=== PATIENT | female | born 2000 | race Caucasian/White ===

== ENCOUNTER 2020-04-07 14:03 | Emergency (ER) | payer OTHER, SELFPAY ==
[2020-04-07 14:16] VITALS: BP 133/88; PULSE 77; RESP 14; TEMP 36.6; O2SAT 100
[2020-04-07 14:36] LABS: Basophils Percent Auto 0.5 % (0.2-1.2); Eosinophils Absolute Auto 0.1 K/mm3 (0-0.3); Eosinophils Percent Auto 1.7 % (0-4.4); Hematocrit 40.1 % (37.0-47.0); Hemoglobin 13.7 g/dL (12.0-15.0); Immature Granulocyte Absolute 0.02 K/mm3 (0.00-0.031); Immature Granulocyte Percent A 0.3 % (0-0.5); Lymphocytes Absolute Auto 2.45 K/mm3 (0.9-3.2); Lymphocytes Percent Auto 37.6 % (18.3-44.2); Mean Corpuscular HGB Conc 34.2 g/dl (32-36); Mean Corpuscular Hemoglobin 31.2 pg (26-34); Mean Corpuscular Volume 91.3 fl (80-100); Mean Platelet Volume 9.4 fl (7.4-10.4); Monocytes Absolute Auto 0.5 K/mm3 (0.1-0.6); Monocytes Percent Auto 7.7 % (2.6-8.5); Neutrophils Absolute Auto 3.4 K/mm3 (1.3-6.7); Neutrophils Percent Auto 52.2 % (45.5-73.1); Platelet Count Result 252 k/mm3 (150-375); Red Blood Count 4.39 M/mm3 (4.2-5.4); Red Cell Distribution Width 12.5 % (11.5-14.5); White Blood Count 6.5 K/mm3 (4.5-10.0)
--- NOTE | 2020-04-07 14:41 | PC.NURSE ---
Pt to room 15. Belongings removed and locked at nurse's desk. Pt c/o feeling depressed and anxious with episodes of crying for no reason. Denies any stressors in her life. Was placed on Prozac 2 years ago for depression but stopped taking it because she felt better.
[2020-04-07 14:57] LABS: Alanine Aminotransferase 11 U/L (4-35); Albumin Level 4.3 g/dL (3.5-5.1); Alkaline Phosphatase 75 U/L (38-126); Anion Gap 4 mmol/L (8-16); Aspartate Amino Transferase 25 U/L (14-36); Bilirubin,Total 0.8 mg/dL (0.2-1.3); Blood Urea Nitrogen 6 mg/dL (7-17); Calcium 8.9 mg/dL (8.4-10.2); Carbon Dioxide 26 mmol/L (22-30); Chloride 105 mmol/L (98-107); Estimated CRCL calculation 95 ml/min; Estimated Glomerular Filt Rate > 60; Glucose 84 mg/dL (65-105); Potassium 4.2 mmol/L (3.4-5.0); Sodium 135 mmol/L (137-145)
[2020-04-07 14:58] LABS: Ethanol < 10 mg/dL (<10)
[2020-04-07 15:24] LABS: Add Urine Microscopic? YES; Appearance Urine Cloudy (Clear); Bacteria Urine 2+ /hpf; Bilirubin Urine Negative (Negative); Blood Urine Negative (Negative); Color Urine Yellow (Yellow); Glucose Urine UA Negative (Negative); Ketones Urine Negative (Negative); Leukocyte Esterase Ur Negative LEU/UL (Negative); Mucus Urine Rare /lpf; Nitrate Urine Negative (Negative); Protein Urine Negative (Negative); RBC Urine 0-2 /hpf (0-2); Specific Grav Ur 1.015 (1.001-1.035); Squamous Epithelial Cell Urine Rare /hpf (Few); Urobilinogen Urine Negative mg/dL (<2.0); WBC Urine 0-3 /hpf
--- NOTE | 2020-04-07 15:27 | ED.PSYCH ---
HPI - Psych General Chief Complaint: Psychiatric Symptoms Stated Complaint: depression, anxiety Time Seen by Provider: 04/07/20 15:25 Source: patient Mode of arrival: ambulatory Limitations: no limitations History of Present Illness HPI Narrative: Patient is a 20-year-old female complaining of depression and anxiety for the past month. Patient also states that she has been having suicidal thoughts but denies any plan. Patient denies any homicidal ideation. Patient denies auditory or visual hallucinations. Patient states that she really does not have any plan on hurting herself but just wants help right now for her depression and anxiety. Patient states that she has been unable to see anyone for her anxiety and depression and currently not on any medications. Related Data Home Medications Medication Instructions Recorded Confirmed No Home Medications 04/07/20 04/07/20 Allergies Allergy/AdvReac Type Severity Reaction Status Date / Time Sulfa (Sulfonamide Allergy Unknown Hives / Verified 04/07/20 14:40 Antibiotics) Red Face Review of Systems Review of Systems: All systems reviewed & are unremarkable except as noted in HPI and below Constitutional: Constitutional: Denies body ache(s), Denies chills, Denies excessive sweating, Denies fatigue, Denies fever(s), Denies headache(s), Denies lethargy, Denies malaise, Denies weakness and Denies weight loss Eyes: Eyes: Denies blurry vision, Denies change in vision and Denies loss of vision ENT: Denies dizziness, Denies ear discharge, Denies headache(s), Denies lip swelling, Denies epistaxis, Denies nasal congestion, Denies neck pain, Denies throat swelling and Denies tongue swelling Cardiovascular: Cardiovascular: Denies chest pain, Denies chest pain at rest, Denies chest pain with activity, Denies diaphoresis, Denies rapid heart rate, Denies edema, Denies irregular heart rhythm, Denies lightheadedness, Denies palpitations, Denies dyspnea and Denies dyspnea on exertion Respiratory: Respiratory: Denies chest congestion, Denies cough, Denies hemoptysis, Denies dyspnea and Denies dyspnea on exertion Gastrointestinal: Gastrointestinal: Denies abdominal pain, Denies melena, Denies hematochezia, Denies diarrhea, Denies nausea, Denies vomiting and Denies hematemesis Musculoskeletal: Musculoskeletal: Denies abnormal gait, Denies deformity, Denies joint swelling, Denies limited range of motion, Denies neck pain and Denies numbness Neurologic: Denies Abnormal speech present, Denies abnormal gait, Denies confusion, Denies dizziness, Denies headache(s), Denies focal weakness, Denies loss of vision, Denies numbness, Denies Other visual disturbances, Denies Sensory deficit (Neuro) and Denies weakness Psychiatric: Psychiatric: Denies confusion, Denies auditory hallucinations and Denies homicidal ideation Endocrine: Endocrine: Denies cold intolerance, Denies excessive sweating, Denies fatigue, Denies heat intolerance and Denies palpitations Hematologic/Lymphatic: Hematologic/Lymphatic: Denies easy bleeding and Denies easy bruising Allergic/Immunologic: Allergic/Immunologic: Denies lip swelling, Denies throat swelling and Denies tongue swelling Exam Const: General: cooperative, healthy appearing, comfortable, no acute distress, well developed, alert and awake; No confusion Orientation/consciousness: oriented to person, oriented to place, oriented to time, patient oriented x3 and No confusion Limitations: no limitations HENMT: Head: normal to inspection, normocephalic and atraumatic Ears: hearing grossly normal bilaterally, TM normal on the right and TM normal on the left General nose exam: Normal external nose present, Normal nares present and No nasal discharge present Face and sinus: normal facial exam Mouth: Yes Normal oral and palatal mucosa present, Yes lip normal, Yes tongue normal and Yes oropharynx normal Throat: posterior oropharynx normal, tonsils normal and uvula midline Eyes: Ge
[2020-04-07 15:28] LABS: Amphetamine Screen Urine Negative (Negative); Barbiturate Screen Urine Negative (Negative); Benzodiazepines Screen Urine Negative (Negative); Cannabinoid Screen Urine Positive (Negative); Cocaine Screen Urine Negative (Negative); Methadone Screen Urine Negative (Negative); Opiate Screen Urine Negative (Negative); Phencyclidine Screen Urine Negative (Negative)
--- NOTE | 2020-04-07 17:23 | PC.NURSE ---
Crisis here to evaluate.
[2020-04-07 19:45] VITALS: BP 122/66; PULSE 88; RESP 16; TEMP 36.7; O2SAT 100
== END 2020-04-07 19:45 | disposition home or self-care (01) ==
PROVIDERS: Emergency Medicine; Emergency Provider Emergency Medicine; PCP Internal Medicine
DX: F32.9 Major depressive disorder, single episode, unspecified (principal); F41.9 Anxiety disorder, unspecified
CPT/HCPCS: 36415; 80053; 80307; 81001; 81025; 84443; 85025; 99284

== ENCOUNTER 2022-01-16 12:41 | Emergency (ER) | payer OTHER, SELFPAY ==
--- NOTE | ~2022-01-16 | XR_ITS ---
EXAMINATION: XR hand LT min 3V INDICATION: Left hand pain TECHNIQUE: Three views of the left hand are obtained. COMPARISON: None available FINDINGS: No acute fracture is identified. Bone alignment is normal. 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 The soft tissues are unremarkable. IMPRESSION: 1. No acute osseous abnormality. Reviewed, dictated and finalized at location A.
--- NOTE | ~2022-01-16 | XR_ITS ---
EXAMINATION: XR hand RT min 3V INDICATION: Right hand pain TECHNIQUE: Three views of the right hand are obtained COMPARISON: None available FINDINGS: There is no fracture, dislocation, or subluxation. The bones, soft tissues, and joint space s are normal. IMPRESSION: 1. No acute osseous abnormality. Reviewed, dictated and finalized at location A.
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
[2022-01-16 12:43] VITALS: BP 146/96; PULSE 120; RESP 18; TEMP 36.7; O2SAT 100
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
[2022-01-16] MEDS: KETOROLAC 30 MG/ML VIAL (*BKC) IM (13:06)
[2022-01-16] MEDS: LORazepam INJ (*CRX) 2 MG/ML VIAL IM (13:07)
--- NOTE | 2022-01-16 13:40 | PC.NURSE ---
pt has been agitated, unruly and threatening to staff. refuses direction from staff. pt was given Ativan IM
[2022-01-16 14:30] VITALS: BP 136/70; PULSE 102; RESP 20; O2SAT 98
--- NOTE | 2022-01-16 15:00 | PC.NURSE ---
pt asleep, equal chest rise and fall noted provider stated to let pt sleep, and then can leave when she awakens.
--- NOTE | 2022-01-16 16:30 | PC.NURSE ---
pt remains at rest, chest rise noted, pt has changed positions in the bed
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
--- NOTE | 2022-01-16 20:20 | PC.NURSE ---
Pt yelling on phone at this time.
[2022-01-16] MEDS: ACETAMINOPHEN 500 MG TABLET 1000 MG PO (20:29)
== END 2022-01-16 20:30 | disposition home or self-care (01) ==
PROVIDERS: Emergency Provider Emergency Medicine; PCP Internal Medicine
DX: S09.93XA Unspecified injury of face, initial encounter (principal); S69.92XA Unspecified injury of left wrist, hand and finger(s), initial encounter; S69.91XA Unspecified injury of right wrist, hand and finger(s), initial encounter; M47.812 Spondylosis without myelopathy or radiculopathy, cervical region; Y04.0XXA Assault by unarmed brawl or fight, initial encounter
CPT/HCPCS: 70450; 70486; 72125; 73130; 96372; 99284; A9270; J1885; J2060

== ENCOUNTER 2024-03-18 13:03 | Emergency (ER) | payer OTHER, SELFPAY ==
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
[2024-03-18 13:10] VITALS: BP 131/80; PULSE 88; RESP 17; TEMP 36.6; O2SAT 99
--- NOTE | 2024-03-18 13:26 | ECG_ITS ---
Test Date: 2024-03-18 14:03:56 Measurements Intervals [place] Rate: 85 P: 27 ND: 153 QRS: 50 QRSD: 89 T: 11 QT: 359 QTc: 427 Interpretive Statements SINUS RHYTHM POSSIBLE RIGHT VENTRICULAR CONDUCTION DELAY [RSR (QR) IN V1/V2] NONSPECIFIC T-WAVE ABNORMALITY No previous ECG available for comparison Electronically Signed On 03-18-2024 14:23:46 [employer] by Shashank Trinh M.D.
[2024-03-18] MEDS: MORPHINE SULFATE (*CRX) 4 MG/ML INJ IV PUSH (13:55)
[2024-03-18] MEDS: LACTATED RINGERS 1,000 ML 999 ML IV CONT (13:55)
[2024-03-18 13:59] LABS: BEDSIDEPREGUCG Negative (Negative)
[2024-03-18 14:11] LABS: Basophils Absolute Auto 0.1 K/mm3 (0.0-0.1); Basophils Percent Auto 0.5 % (0.2-1.2); Eosinophils Absolute Auto 0.4 K/mm3 (0-0.3); Eosinophils Percent Auto 3.7 % (0-4.4); Hematocrit 39.6 % (37.0-47.0); Hemoglobin 13.2 g/dL (12.0-15.0); Immature Granulocyte Absolute 0.04 K/mm3 (0.00-0.031); Immature Granulocyte Percent A 0.4 % (0-0.5); Lymphocytes Absolute Auto 2.77 K/mm3 (0.9-3.2); Lymphocytes Percent Auto 28.8 % (18.3-44.2); Mean Corpuscular HGB Conc 33.3 g/dl (32-36); Mean Corpuscular Hemoglobin 30.3 pg (26-34); Mean Corpuscular Volume 90.8 fl (80-100); Mean Platelet Volume 8.9 fl (7.4-10.4); Monocytes Absolute Auto 0.7 K/mm3 (0.1-0.6); Monocytes Percent Auto 7.3 % (2.6-8.5); Neutrophils Absolute Auto 5.7 K/mm3 (1.3-6.7); Neutrophils Percent Auto 59.3 % (45.5-73.1); Platelet Count Result 377 k/mm3 (150-375); Red Blood Count 4.36 M/mm3 (4.2-5.4); Red Cell Distribution Width 12.8 % (11.5-14.5); White Blood Count 9.6 K/mm3 (4.5-10.0)
[2024-03-18 14:17] LABS: Add Urine Microscopic? YES; Appearance Urine Turbid (Clear); Bacteria Urine 3+ /hpf; Bilirubin Urine Negative (Negative); Blood Urine Negative (Negative); Color Urine Yellow (Yellow); Glucose Urine UA Negative (Negative); Ketones Urine Negative (Negative); Leukocyte Esterase Ur 1+ LEU/UL (Negative); Nitrate Urine Negative (Negative); Non Pathogenic Casts 0-2; Protein Urine Negative (Negative); RBC Urine 0-2 /hpf (0-2); Specific Grav Ur 1.017 (1.001-1.035); Squamous Epithelial Cell Urine Moderate /hpf (Few); pH Urine 7.5 (5.0-9.0)
[2024-03-18 14:21] LABS: INR 0.9; Prothrombin Time 12.8 Seconds (11.1-14.7)
[2024-03-18 14:22] LABS: Alanine Aminotransferase 13 U/L (6-35); Albumin Level 4.2 g/dL (3.5-5.1); Alkaline Phosphatase 109 U/L (38-126); Anion Gap 3 mmol/L (4-12); Aspartate Amino Transferase 22 U/L (14-36); Bilirubin,Total 0.5 mg/dL (0.2-1.3); Blood Urea Nitrogen 10 mg/dL (7-17); Carbon Dioxide 27 mmol/L (22-30); Chloride 107 mmol/L (98-107); Estimated CRCL calculation 111 ml/min; Estimated Glomerular Filt Rate > 60; Glucose 96 mg/dL (65-110); Potassium 3.9 mmol/L (3.4-5.0); Sodium 137 mmol/L (137-145)
[2024-03-18 14:23] LABS: Partial Thromboplastin Time 25.4 Seconds (22.3-36.8)
[2024-03-18 14:32] LABS: Troponin I < 0.012 ng/mL (0.000-0.034)
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
[2024-03-18] MEDS: ONDANSETRON INJ 4 MG/2 ML VIAL IV PUSH (15:40)
[2024-03-18] MEDS: HYDROmorphone HCL INJ (*CRX) 1 MG/ML SYR IV PUSH (15:41)
[2024-03-18 15:43] VITALS: BP 129/86; PULSE 88; RESP 16; O2SAT 98
--- OUTSIDE RECORDS SUMMARY | 2024-03-25 18:35 | XMS_ITS | Referral Summary ---
Author Organization [facility] Address [address] [place] [address] Care Team Providers Care Tube Cleaner Name Role Phone Unavailable Primary Care Provider Unavailabl e Source Comments [facility],non-owned Affiliates and Associated Physician Practices is amultiple site organization consisting of ambulatory clinics and hospital sitesin [place], [place], [place] and [place]. This disclosure is being madepursuant to the Care Everywhere program and may not contain all information available regarding this patient. Last updated 17.[facility] [employer] Allergies Active Allergy Reactions Criticality Noted Date Comments Sulfamethoxazole W-Trimethoprim Itching 12/27 Active Problems Problem Noted Date Diagnosed Date Manic episode 01/22/2022 Social History Tobacco Use Types Packs/Day Years Used Date Smoking Tobacco: Never Assessed Sex and Gender Information Value Date Recorded Sex Assigned at Not on file Gender Identity Not on file Sexual Orientation Not on file Last Filed Vital Signs Vital Sign Reading Time Taken Comments Blood Pressure 115/59 01/25/2022 2:26 PM CDT Pulse 90 01/25/2022 2:26 PM CDT Temperature 36.8 ??C (98.2 ??F) 01/25/2022 2:26 PM CD T Respiratory Rate 16 01/25/2022 2:26 PM CDT Oxygen Saturation 100% 01/25/2022 2:26 PM CDT Inhaled Oxygen Concentration - - Weight 49.9 kg (110 lb) 01/22/2022 5:37 PM CDT Height 162.6 cm (5' 4 ) 01/22/2022 5:37 PM CDT Body Mass Index 18.88 01/22/2022 5:37 PM CDT Plan of Treatment Not on file Advance Directives * Full Code (Latest Code Status on File) Date Activated Date Inactivated Comments 01/24/2022 7:28 AM 01/25/2022 4:05 PM
--- OUTSIDE RECORDS SUMMARY | 2024-03-25 18:35 | XMS_ITS | Clinical Summary ---
Author Organization [facility] Address [address] [place] [address] Care Team Providers Care Train Gateman Name Role Phone Unavailable Primary Care Provider Unavailabl e Source Comments [facility],non-owned Affiliates and Associated Physician Practices is amultiple site organization consisting of ambulatory clinics and hospital sitesin [place], [place], [place] and [place]. This disclosure is being madepursuant to the Care Everywhere program and may not contain all information available regarding this patient. Last updated 17.[facility] [employer] Allergies Active Allergy Reactions Criticality Noted Date [...] 01/22/2022 5:37 PM CDT Plan of Treatment Health Maintenance Due Date Last Done Comments PAP SMEAR 2000 HIV SCREENING 2015 HPV VACCINE (1 - 3-dose series) 2015 CHLAMYDIA/GONORRHEA SCREENING 2016 HEPATITIS C SCREENING 03/31/2018 DTAP/TDAP/TD VACCINES (1 - Tdap) 2019 HEPATITIS B VACCINE (1 of 3 - 19+ 3-dose series) 2019 DEPRESSION SCREENING 03/28/2023 COVID-19 VACCINE (1 - 2023-2 5 season) 2023 INFLUENZA VACCINE (#1) 2023 8, 02/05/2018 ZOSTER VACCINE (1 of 2) 2050 HIB VACCINE Aged Out No longer eligi ble based on patient's age to complete this topic MENINGOCOCCAL VACCINE Aged Out No eliza mallory eligible based on patient's age to complete this topic PNEUMOCOCCAL VACCINE Aged Out No long er eligible based on patient's age to complete this topic Advance Directives * Full Code (Latest Code Status on File) Date Activated Date Inactivated Comments 01/24/2022 7:28 AM 01/25/2022 4:05 PM
--- OUTSIDE RECORDS SUMMARY | 2024-03-25 18:35 | XMS_ITS | Patient Health Summary ---
Author Organization [facility] [employer] Address [address] [place] [address] Care Team Providers Care Ore Crushing Dust Collector Name Role Phone Unavailable Primary Care Provider Unavailabl e Note from [facility],non-owned Affiliates and Associated Physician Practices is amultiple site organization consisting of ambulatory clinics and hospital sitesin [place], [place], [place] and [place]. This disclosure is being madepursuant to the Care Everywhere program and may not contain all information available regarding this patient. Last updated 17.[facility] [employer] Allergies * Sulfamethoxazole W-Trimethoprim(Itching) Active Problems Problem Noted Date Diagnosed Date [...] Mass Index 18.88 01/22/2022 5:37 PM CDT Procedures * CARDIAC EKG ORDER(Performed 01/26/2022) * EKG 12-LEAD(Performed 01/24/2022) Performed for Manic episode (HCC) * SYPHILIS ANTIBODY CASCADING REFLEX(Performed 01/22/2022) * HCG BETA BLOOD QUANTITATIVE(Performed 01/22/2022) * MAGNESIUM BLOOD(Performed 01/22/2022) * COMPREHENSIVE METABOLIC PANEL(Performed 01/22/2022) * CBC W AUTO DIFFERENTIAL(Performed 01/22/2022) * ALCOHOL ETHYL BLOOD(Performed 01/22/2022) * URINE DRUG SCREEN IMMUNOASSAY(Performed 01/22/2022) Results * CARDIAC EKG ORDER (01/26/2022 12:20 PM CDT) Narrative 01/26/2022 12:20 PM CDT Ordered by an unspecified provider. Scanned Document CARDIAC SERVICES ORD ERABLES * EKG 12-LEAD (01/24/2022 7:56 AM CDT) Pathologist [facility] Ventricular Rate 79 BPM [facility] MUSE Atrial Rate 79 BPM [facility] MUSE P-R Interval 112 ms [facility] MUSE QRS Duration ms 74 ms [facility] MUSE Q-T Interval ms 338 ms [facility] MUSE QTC Calculation (Bezet) 387 ms [facility] MUSE Calculated P [place] 44 degrees [facility] Calculated R [place] 83 degrees [facility] Calculated T [place] 51 degrees [facility] Interpretation EKG NORMAL SINUS RHYTHM NORMAL ECG NO PREVIOUS ECGS AVAILABLE Confirmed by DRAIUSZ QUINONES, [facility] ([id number]) on 01/27/2022 8:42:05 AM [facility] MUSE 01/24/2022 7:56 AM CDT 01/27/2022 8:42 AM CDT Woody Moore MD ECG ORDERABLES [facility] MUSE * SYPHILIS ANTIBODY CASCADING REFLEX (01/22/2022 5:50 PM CDT) Pathologist [facility] Treponema pallidum Antibody Non-react bernabe Non-react bernabe 01/22/2022 6:43 PM CDT [facility] Comment: No Laboratory evidence of syphilis infection. ?? Note: ??Circulating antibodies may be low or undetectable in early infection. ??If recent exposure is suspected, re-draw sample in 2-4 weeks and repeat testing. Blood BLOOD SPECIMEN / Unknown Venipuncture / Unknown 01/22/2022 5:50 PM CDT 01/22/2022 5:56 PM CDT Lena Martinez MD LAB - SEROLOGY ORDER LINH [facility] [address] [place] [address], [facility] [phone] * (ABNORMAL) CBC W AUTO DIFFERENTIAL (01/22/2022 5:50 PM CDT) WBC 9.7 3.5 - 10.5 10? 3 /uL 01/22/2022 6:01 PM [facility] RBC 4.02 3.80 - 5.20 10? 6 /uL 01/22/2022 6:01 PM [facility] Hemoglobin 13.1 12.0 - 15.6 g/dL 01/22/2022 6:01 PM [facility] Hematocrit 37.6 35.0 - 45.0 % 01/22/2022 6:01 PM [facility] MCV 93.5 80.7 - 98.3 fL 01/22/2022 6:01 PM [facility] MCH 32.6 26.7 - 34.0 pg 01/22/2022 6:01 PM [facility] MCHC 34.8 30.8 - 35.9 g/dL 01/22/2022 6:01 PM [facility] RDW-SD 42.7 36.0 - 50.0 fL 01/22/2022 6:01 PM [facility] RDW-CV 12.3 11.2 - 14.8 % 01/22/2022 6:01 PM [facility] Platelet Count 265 150 - 400 10? 3 /uL 01/22/2022 6:01 PM [facility] MPV 8.9(L) 9.4 - 12.9 fL 01/22/2022 6:01 PM [facility] nRBC Absolute 0.00 0 10? 3 /uL 01/22/2022 6:01 PM [facility] nRBC Auto 0.0 0 /100 WBC 01/22/2022 6:01 PM [facility] Neutrophils % 65.0 35.0 - 70.0 % 01/22/2022 6:01 PM [facility] Lymphocytes % 24.2 20.0 - 43.0 % 01/22/2022 6:01 PM [facility] Monocytes % 9.4 5.0 - 13.0 % 01/22/2022 6:01 PM [facility] Eosinophils % 0.7 0.0 - 6.0 % 01/22/2022 6:01 PM [facility] Basophil % 0.3 0.0 - 2.0 % 01/22/2022 6:01 PM [facility] Neutrophils Absolute 6.32 1.60 - 7.00 10? 3 /uL 01/22/2022 6:01 PM [facility] Lymphocyte Absolute 2.35 1.10 - 3.90 10? 3 /uL 01/22/2022 6:01 PM [facility] Monocytes Absolute 0.91 0.26 - 1.07 10? 3 /uL 01/22/2022 6:01 PM [facility] Eosinophils Absolute 0.07 0.00 - 0.47 10? 3 /uL 01/22/2022 6:01 PM [facility] Basophils Absolute 0.03 0.00 - 0.08 10? 3 /uL 01/22/2022 6:01 PM [facility] Immature Granulocytes % 0.4 0.0 - 1.0 % 01/22/2022 6:01 PM [facility] Immature Granulocytes Absolute 0.04 01/22/2022 6:01 PM [facility] Blood BLOOD SPECIMEN / Unknown Venipuncture / Unknown 01/22/2022 5:50 PM CDT 01/22/2022 5:57 PM T Lena Martinez MD LAB - HEMATOLOGY ORD ERABLES [facility] [address] [place] [address] [phone] * (ABNORMAL) COMPREHENSIVE METABOLIC PANEL (01/22/2022 5:50 PM [facility]) BUN 9 7 - 26 mg/dL 01/22/2022 6:32 PM [facility] Creatinine 0.63 0.56 - 0.96 mg/dL 01/22/2022 6:32 PM [facility] Sodium 139 136 - 145 mmol/L 01/22/2022 6:32 PM [facility] Potassium 3.3(L) 3.5 - 4.5 mmol/L 01/22/2022 6:32 PM [facility] Chloride 105 98 - 107 mmol/L 01/22/2022 6:32 PM [facility] CO2 20(L) 22 - 29 mmol/L 01/22/2022 6:32 PM [facility] Glucose 62(L) 70 - 115 mg/dL 01/22/2022 6:32 PM [facility] Calcium 8.8 8.4 - 10.2 mg/dL 01/22/2022 6:32 PM [facility] Protein Total 6.7 6.0 - 8.3 g/dL 01/22/2022 6:32 PM [facility] Albumin 4.0 3.4 - 5.0 g/dL 01/22/2022 6:32 PM [facility] Bilirubin Total 0.6 0.2 - 1.2 mg/dL 01/22/2022 6:32 PM [facility] Alkaline Phosphatase 81 40 - 150 U/L 01/22/2022 6:32 PM [facility] ALT 9 5 - 55 U/L 01/22/2022 6:32 PM [facility] AST 15 5 - 34 U/L 01/22/2022 6:32 PM [facility] Anion Gap 17 8 - 18 01/22/2022 6:32 PM [facility] BUN/Creatinine Ratio 14 7 - 23 01/22/2022 6:32 PM [facility] Osmolality Calculated 285 270 - 300 mOsm/kg 01/22/2022 6:32 PM CDT [facility] Albumin/Globulin Ratio 1.5 1.1 - 2.3 01/22/2022 6:32 PM CDT [facility] eGFR by CKD-EPI >90 >=90 mL/min/1.7 3 m2 01/22/2022 6:32 PM CDT [facility] Blood BLOOD SPECIMEN / Unknown Venipuncture / Unknown 01/22/2022 5:50 PM CDT 01/22/2022 5:57 PM CDT Lena Martinez MD LAB - CHEMISTRY THERESA COMBS [facility] [address] [place] [address], [facility] [phone] * HCG BETA BLOOD QUANTITATIVE (01/22/2022 5:50 PM CDT) Beta-hCG Total Quantitative <3 mIU/mL 01/22/2022 6:43 PM CDT [facility] Comment: This assay is cleared for use in the early detection of only. It is not approved for any other uses such as tumor marker screening, tumor marker monitoring, etc. and should not be used for any other purposes. HCG Numeric Result Interpretation: ? Non- Females: ? < 5 mIU/mL ? Post-Menopausal Females: ??< 7 mIU/mL ? Blood BLOOD SPECIMEN / Unknown Venipuncture / Unknown 01/22/2022 5:50 PM CDT 01/22/2022 5:57 PM CDT Lena Martinez MD LAB - CHEMISTRY THERESA COMBS [facility] [address] [place] [address], [place] [phone] * MAGNESIUM BLOOD (01/22/2022 5:50 PM CDT) Pathologist [facility] Magnesium 1.8 1.6 - 2.6 mg/dL 01/22/2022 6:32 PM CDT [facility] Blood BLOOD SPECIMEN / Unknown Venipuncture / Unknown 01/22/2022 5:50 PM CDT 01/22/2022 5:57 PM CDT Lena Martinez MD LAB - CHEMISTRY THERESA COMBS Performing Organization Address [facility]/ZIP Co de Phone Number [facility] [address] [place] [address], [facility] [phone] * (ABNORMAL) ALCOHOL ETHYL BLOOD (01/22/2022 5:50 PM CDT) Ethanol (mg/dL) 15(H) <10 mg/dL 6:32 PM CDT [facility] Ethanol Calculated (g/dL) 0.015(H) <=0.010 g/dL 01/22/2022 6:32 PM CDT [facility] Blood BLOOD SPECIMEN / Unknown Venipuncture / Unknown 01/22/2022 5:50 PM CDT 01/22/2022 5:57 PM CDT Narrative [facility] - 01/22/2022 6:32 PM CDT Ethanol Interp <10: None Detected. Depression of MATH SPECIALIST: >100 mg/dl Potentially Critical: >250 mg/dl Potentially Fatal >400 mg/dl Ethanol in the patient's blood will contribute to the osmolar gap. Ethanol's contribution to the osmolar gap can be estimated by dividing the concentration of ethanol in mg/dL by 4.6. This test is for clinical use only and does not equal a ARMANDO for legal purposes. Lena Martinez MD LAB - CHEMISTRY THERESA COMBS [facility] [address] [place] [address], [place] [phone] * (ABNORMAL) URINE DRUG SCREEN IMMUNOASSAY (01/22/2022 5:47 PM CDT) Amphetamines Screen Urine Positive(A) Negative : < 1000 ng/mL 01/22/2022 6:12 PM CDT [facility] Comment: Positive urine amphetamine screening results should be confirmed by another generally accepted non-immunological method such as gas chromatography or mass spectrometry. ? Barbiturates Screen Urine Negative Negative : < 200 ng/mL 01/22/2022 6:12 PM [facility] Benzodiazepine Screen Urine Negative Negative : < 200 ng/mL 01/22/2022 6:12 PM [facility] Opiates Urine Negative Negative : < 300 ng/mL 01/22/2022 6:12 PM [facility] Cocaine Metabolites Urine Negative Negative : < 300 ng/mL 01/22/2022 6:12 PM [facility] Phencyclidine Screen Urine Negative Negative : < 25 ng/ml 01/22/2022 6:12 PM [facility] Cannabinoids Screen Urine Positive(A) Negative : <50 ng/mL 01/22/2022 6:12 PM [facility] Comment:Positive urine canna binoids (THC) screening results should be confirmed by another generally accepted non-immunological method such as gas chromatography or mass spectrometry. Methadone Screen Urine Negative Negative : < 300 ng/mL 01/22/2022 6:12 PM [facility] Fentanyl Screen Urine Negative Negative : <1.5 ng/mL 01/22/2022 6:12 PM [facility] Urine URINE / Unknown Collection / Unknown 01/22/2022 5:47 PM CDT 01/22/2022 5:48 PM CDT [facility] - 01/22/2022 6:12 PM CDT The Urine Toxicology Screening Panel does not screen for Propoxyphene, Meprobamate, Carisoprodol, Trazodone, [id number] medications and/or volatiles (Acetone, Isopropanol, Methanol or Ethylene Glycol). Ethanol, Salicylate, Acetaminophen, Tricyclic Antidepressants and several therapeutic drugs may be individually assayed in serum or plasma specimen. Toxicology testing by the [facility] is an aid to medical diagnosis and treatment of patients. No documented chain of custody was maintained. Results are intended to be used for clinical purposes only. ? Lena Martinez MD LAB - URINE CHEMISTR Y ORDERABLES Performing Organization Address [facility] Co de Phone Number [facility] [address] [place] [address], [place] [phone]
--- OUTSIDE RECORDS SUMMARY | 2024-03-25 18:35 | XMS_ITS | Data Portability ---
Author Organization [facility] [place] Address [address] [place] [place] [address] Care Team Providers Care Analyst Business Analysis Name Role Phone ANTONIO NICHOLSON Primary Care Provider [phone] Assessment Encounter Date Assessment Date Assessment LastModified by Organization Details LastModified Time 12/09/2022 12/09/2022 Annual gynecological exam performed. Patient will come back in a year unless there are new symptoms. [email or web address] Not available 12/09/2022 10:45:48 Plan of Treatment Reminders Order Date Submit Date Provider Last Modified By Organization Details Last Modified Time Details Appointments None recorded . Lab pregnanc y test, urine 2022 023 [email or web address] [place], [address], [address], [place], [address], 12:58:37 Referral None recorded . Procedures None recorded . Surgeries None recorded . Imaging None recorded . Medication Orders Mirena 21 mcg/24 hr (up to 8 years) 52 mg intraute rine device 2022 023 [email or web address] Not available 13:31:44 Patient TargetsNo targets recorded. Patient InstructionsNo instructions recorded. Reason for Referral None Reported. Results Created Date Observation Date Name Description Value Unit Range Abnormal Flag Note LastModifiedBy Organization Detail LastModifiedTime 06/05/19 23 06/04/2022 CT/GC AND TRICH OMONA S VAGIN LARRY (RRNA ), URINE chlamydia trachomatis, PCR Negati ve negati ve Not Available [facility] (Lab) [address], [place], [address], 06/05/2022 13:31:54 06/05/19 23 06/04/2022 CT/GC AND TRICH OMONA S VAGIN LARRY (RRNA ), URINE neisseria gonorrhoeae, PCR Negati ve negati ve Not Available [facility] (Lab) [address] [facility], [place], [address], 06/05/2022 13:31:54 06/05/19 23 06/04/2022 CT/GC AND TRICH OMONA S VAGIN LARRY (RRNA ), URINE trichomonas vaginalis ribosomal RNA (rrna) Negati ve negati ve Not Available [facility] (Lab) [address] [facility], [place], [address], 06/05/2022 13:31:54 06/05/19 23 06/04/2022 pregn cheryl test, urine HCG negati ve Not Available [place] [address], [place], [address], 06/04/2022 12:58:21 12/10/19 23 12/09/2022 CT/GC AND TRICH OMONA S VAGIN LARRY (RRNA ), SWAB chlamydia trachomatis, PCR NEGATI VE negati ve Not Available [facility] (Lab) [address] [facility], [place], [address], 12/10/2022 16:49:08 12/10/19 23 12/09/2022 CT/GC AND TRICH OMONA S VAGIN LARRY (RRNA ), SWAB neisseria gonorrhoeae, PCR NEGATI VE negati ve Not Available [facility] (Lab) [address] [facility], [place], [address], 12/10/2022 16:49:08 12/10/19 23 12/09/2022 CT/GC AND TRICH OMONA S VAGIN LARRY (RRNA ), SWAB trichomonas vaginalis ribosomal RNA (rrna) NEGATI VE negati ve Not Available [facility] (Lab) [address] [facility], [place], [address], 12/10/2022 16:49:08 04/26/19 24 04/26/2023 CT/GC AND TRICH OMONA S VAGIN LARRY (RRNA ), URINE chlamydia trachomatis, PCR Negati ve negati ve Not Available [facility] (Lab) [address] [facility], [place], [address], 04/27/2023 14:52:02 04/26/19 24 04/26/2023 CT/GC AND TRICH OMONA S VAGIN LARRY (RRNA ), URINE neisseria gonorrhoeae, PCR Negati ve negati ve Not Available [facility] (Lab) [address] [facility], [place], [address], 04/27/2023 14:52:02 04/26/19 24 04/26/2023 CT/GC AND TRICH OMONA S VAGIN LARRY (RRNA ), URINE trichomonas vaginalis ribosomal RNA (rrna) Negati ve negati ve Not Available [facility] (Lab) [address] [facility], [place], [address], 04/27/2023 14:52:02 06/02/19 24 06/02/2023 VAGIN ITIS/ VAGIN OSIS, DNA PROBE adair sp. detection, direct probe Negati ve negati ve Not Available [facility] (Lab) [address] [facility], [place], [address], 06/03/2023 13:38:16 06/02/19 24 06/02/2023 VAGIN ITIS/ VAGIN OSIS, DNA PROBE gardnerella vag. detection, direct probe Negati ve negati ve Not Available [facility] (Lab) [address] [facility], [place], [address], 06/03/2023 13:38:16 06/02/19 24 06/02/2023 VAGIN ITIS/ VAGIN OSIS, DNA PROBE trichomonas vag. detection, direct probe Negati ve negati ve Not Available [facility] (Lab) [address] [facility], [place], [address], 06/03/2023 13:38:16 06/02/19 24 06/02/2023 CT/GC AND TRICH OMONA S VAGIN LARRY (RRNA ), URINE chlamydia trachomatis, PCR Negati ve negati ve Not Available [facility] (Lab) [address] [facility], [place], [address], 06/03/2023 13:38:17 06/02/19 24 06/02/2023 CT/GC AND TRICH OMONA S VAGIN LARRY (RRNA ), URINE neisseria gonorrhoeae, PCR Negati ve negati ve Not Available [facility] (Lab) [address] [facility], [place], [address], 06/03/2023 13:38:17 06/02/19 24 06/02/2023 CT/GC AND TRICH OMONA S VAGIN LARRY (RRNA ), URINE trichomonas vaginalis ribosomal RNA (rrna) Negati ve negati ve Not Available [facility] (Lab) [address] [facility], [place], [address], 06/03/2023 13:38:17 Result Notes None recorded. Procedures Surgical History Date Name Laterality Status Provider Name and Address Organization Details Recorded Time 3 [facility] [address], [place], [address], [facility] 06/04/2022 12:57:37 2 IUD Removal completed [facility] [address], [place], [address], [facility] 12/16/2021 13:08:04 2 Date of Last Pap Smear completed Yvonne Morales [facility] 12/16/2021 12:55:53 Imaging Results None recorded. Procedure Notes None recorded. Medical Equipment None Reported. Allergies Allergen ID Allergen Name Allergen Category Reaction Reaction Severity Criticality Documentation Date Start Date Code Code System Note Provider Name and Address Organization Details Recorded Time 96888 Bactrim medicatio n Not available Not available Not available 11/25/2021 50391 9 RxNorm Yvonne Morales [facility] 2 10:22:08 Medications Name Sig Start Date Stop Date Status Note LastModified by Organization Details LastModified Time Mirena 21 mcg/24 hr (up to 8 years) 52 mg intrauterin e device Take 1 device by intrauter ine route. 2022 active Not Available Not Available Not Avai lable venlafaxine ER 37.5 mg capsule,ext ended release 24 hr 11/25 completed Not Available Not Available Not Available venlafaxine ER 75 mg capsule,ext ended release 24 hr TAKE 1 CAPSULE BY MOUTH EVERY DAY 06/04 completed Not Available Not Available Not Available doxycycline hyclate 100 mg capsule 11/25 completed Not Available Not Available Not Available trazodone 50 mg tablet TAKE 1 TABLET BY MOUTH AT BEDTIME NEEDED FOR SLEEP OR INSOMNIA 06/04 completed Not Available Not Available Not Available nicotine (polacrilex ) 2 mg gum chew ONE piece BY MOUTH EVERY 2 HOURS NEEDED FOR smoking cessation 12/09 completed Not Available Not Available Not Available fluconazole 150 mg tablet TAKE 1 TABLET BY MOUTH ONCE AND TAKE ANOTHER 1 IN 72 HOURS active Not Available Not Available No t Available chlorpromaz ine 100 mg tablet TAKE 1 Tablet BY MOUTH THREE TIMES DAILY 06/04 completed Not Available Not Available Not Available fluconazole 200 mg tablet TAKE 1 TABLET BY MOUTH EVERY OTHER DAY FOR 3 DOSES 12/15 completed Not Available Not Available Not Available prednisone 20 mg tablet TAKE 3 TABLETS BY MOUTH EVERY DAY FOR 5 DAYS 11/25 completed Not Available Not Available Not Available spironolact one 100 mg tablet TAKE 1 TABLET BY MOUTH DAILY 06/04 completed Not Available Not Available Not Available venlafaxine ER 150 mg capsule,ext ended release 24 hr TAKE 1 CAPSULE BY MOUTH EVERY DAY IN THE MORNING 11/25 completed Not Available Not Available Not Available lithium carbonate ER 300 mg tablet,exte nded release 06/04 completed Not Available Not Available Not Available metronidazo le 500 mg tablet 04/26 completed Not Available Not Available Not Available lithium carbonate ER 450 mg tablet,exte nded release TAKE TWO TABLETS BY MOUTH EVERY NIGHT AT BEDTIME 04/26 completed Not Available Not Available Not Available lamotrigine 25 mg tablet 04/26 completed Not Available Not Available Not Available risperidone 2 mg tablet TAKE 1 Tablet BY MOUTH TWICE DAILY 06/04 completed Not Available Not Available Not Available trazodone 100 mg tablet TAKE 1 Tablet BY MOUTH EVERY NIGHT AT BEDTIME NEEDED FOR SLEEP 12/09 completed Not Available Not Available Not Available benzonatate 100 mg capsule TAKE 1 CAPSULE BY MOUTH THREE TIMES DAILY FOR 10 DAYS 11/25 completed Not Available Not Available Not Available nicotine 21 mg/24 hr daily transdermal patch 11/25 completed Not Available Not Available Not Available fluoxetine 10 mg capsule TAKE 1 Capsule BY MOUTH DAILY 12/09 completed Not Available Not Available Not Available hydroxyzine HCl 25 mg tablet 04/26 completed Not Available Not Available Not Available albuterol sulfate HFA 90 mcg/actuati on aerosol inhaler INHALE 2 PUFFS BY MOUTH EVERY 4 HOURS NEEDED 11/25 completed Not Available Not Available Not Available betamethaso ne dipropionat e 0.05 % topical ointment APPLY TOPICALLY TO THE AFFECTED AREA TWICE DAILY 12/09 completed Not Available Not Available Not Available hydroxyzine HCl 10 mg tablet TAKE 1 Tablet BY MOUTH EVERY FOUR HOURS NEEDED FOR ANXIETY 12/09 completed Not Available Not Available Not Available lamotrigine 100 mg tablet 04/26 completed Not Available Not Available Not Available hydroxyzine pamoate 25 mg capsule TAKE 1 CAPSULE BY MOUTH EVERY 4 HOURS NEEDED FOR ANXIETY 11/25 completed Not Available Not Available Not Available Amnesteem 40 mg capsule TAKE 1 CAPSULE BEFORE A MEAL BY MOUTH EVERY DAY FOR 30 DAYS 04/26 completed Not Available Not Available Not Available atomoxetine 40 mg capsule TAKE ONE CAPSULE BY MOUTH FOR 4 DAYS THEN INCREASE TO 2 CAPSULES BY MOUTH IF TOLERATIN G 04/26 completed Not Available Not Available Not Available risperidone 2 mg disintegrat ing tablet 06/04 completed Not Available Not Available Not Available bupropion HCl XL 300 mg 24 hr tablet, extended release active Not Available Not Available Not Available bupropion HCl XL 150 mg 24 hr tablet, extended release 12/09 completed Not Available Not Available Not Available fluocinolon e 0.01 % scalp oil and shower cap APPLY TOPICALLY TO THE AFFECTED AREA DAILY APPLY TO THE TO THE SCALP NEEDED. CONTACT 04/26 completed Not Available Not Available Not Available lithium carbonate 06/04 completed Not Available Not Available Not Available Vyvanse 30 mg capsule 11/25 completed Not Available Not Available Not Available Vyvanse 50 mg capsule 11/25 completed Not Available Not Available Not Available Vyvanse 40 mg capsule 06/04 completed Not Available Not Available Not Available quetiapine ER 50 mg tablet,exte nded release 24 hr TAKE 1 TABLET BY MOUTH EVERY DAY AT BEDTIME 11/25 completed Not Available Not Available Not Available lamotrigine ER 200 mg tablet,exte nded release 24 hr 04/26 completed Not Available Not Available Not Available lamotrigine ER 100 mg tablet,exte nded release 24 hr 04/26 completed Not Available Not Available Not Available lurasidone 80 mg tablet TAKE 1 Tablet BY MOUTH DAILY WITH dinner active Not Available Not Available No t Available lamotrigine ER 300 mg tablet,exte nded release 24 hr active Not Available Not Available Not Available lurasidone 20 mg tablet 07/26 completed Not Available Not Available Not Available Tremfya 100 mg/mL subcutaneou s auto-inject or active Not Available Not Available Not Available ID NOW COVID-19 Test Kit DIRECTED 11/25 completed Not Available Not Available Not Available Vitals Date Recorded Body height Systolic blood pressure Diastolic blood pressure Provider Name and Address Organization Details Last Updated DateTime 06/04/2022 163.2 cm 108 mm[Hg] 60 mm[Hg] Kayy Cadet [facility] 06/04/2022 12:22:23 Date Recorded Body height Body mass index (BMI) Body weight Provider Name and Address Organization Details Last Updated DateTime 07/26/2022 163.2 cm 24.5 kg/m2 33579.3 g Bettie Arredondo [facility] 07/26/2022 12:01:58 Date Recorded Systolic blood pressure Diastolic blood pressure Provider Name and Address Organization Details Last Updated DateTime 07/26/2022 118 mm[Hg] 80 mm[Hg] Hilary Hidalgo, [facility]- [address], [place], [address], [facility] 08/24/2022 06:46:40 Date Recorded Body height Body mass index (BMI) Body weight Systolic blood pressure Diastolic blood pressure Provider Name and Address Organization Details Last Updated DateTime 12/09/2022 163.2 cm 29.3 kg/m2 90354.89 g 110 mm[Hg] 82 mm[Hg] Nnanette Iglesias [facility] 3 10:45:57 Date Recorded Body height Body mass index (BMI) Body weight Systolic blood pressure Diastolic blood pressure Provider Name and Address Organization Details Last Updated DateTime 04/26/2023 163.2 cm 34.4 kg/m2 10365.66 g 112 mm[Hg] 76 mm[Hg] Bettie Arredondo [facility] 4 11:03:07 Date Recorded Body height Body mass index (BMI) Body weight Systolic blood pressure Diastolic blood pressure Provider Name and Address Organization Details Last Updated DateTime 06/02/2023 163.2 cm 35.3 kg/m2 29082.34 g 117 mm[Hg] 81 mm[Hg] Bettie Arnulfo [facility] 4 09:25:46 Social History Question Answer Notes LastModified by Organizat ion Details LastModified Time Tobacco Smoking Status Never Smoker Urszula Morse boaz, [facility] 12/09/2022 10:39:58 Do You Have An Advance Directive? No Information n ot available 11/25/2021 What Is Your Level Of Alcohol Consumption? Occasional Information not available 11/25/2021 How Many Years Have You Consumed Alcohol? 5 Information not available 11/25/2021 Are You Blind Or Do You Have Difficulty Seeing? No Information n ot available 11/25/2021 What Is Your Level Of Caffeine Consumption? Heavy Information not available 11/25/2021 How Much Tobacco Do You Chew? None Information not available 11/25/2021 In The 14 Days Before Symptom Onset, Have You Had Close Contact With A Laboratory-confirm ed COVID-19 While That Case Was Ill? No Information n ot available 11/25/2021 In The 14 Days Before Symptom Onset, Have You Had Close Contact With A Person Who Is Under Investigation For COVID-19 While That Person Was Ill? No Information not available 11/25/2021 Have You Been To An Area Known To Be High Risk For COVID-19? No Information not available 11/25/2021 Are You Deaf Or Do You Have Serious Difficulty Hearing? No Information not available 11/25/2021 What Type Of Diet Are You Following? REGULAR Information n ot available 11/25/2021 What Is The Highest Grade Or Level Of School You Have Completed Or The Highest Degree You Have Received? 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 No Information not available 11/25/2021 Do You Use Protection During Sex? No Information not available 11/25/2021 Do You Use Your Seat Belt Or Car Seat Routinely? Yes Information not available 11/25/2021 Do You Have Smoke And Carbon Monoxide Detectors In Your Home? Yes [email or web address] Information not available 07/26/2022 At What Age Did You Start Smoking Tobacco? 15 Information not available 11/25/2021 How Much Tobacco Do You Smoke? No Information not available 11/25/2021 Do You Feel Stressed (tense, Restless, Nervous, Or Anxious, Or Unable To Sleep At Night)? [id number] Information not available 11/25/2021 Do You Use Any Illicit Or Recreational Drugs? No Information not available 11/25/2021 Do You Use Sunscreen Routinely? Yes Information not available 11/25/2021 How Many Years Have You Smoked Tobacco? 7 Information not available 11/25/2021 Have You Used IV Drugs? No Information not available 11/25/2021 Sex: Unknown Functional Status Question Answer Note LastModified by Organizat ion Details LastModified Time Do you have difficulty walking or climbing stairs? No [email or web address] Information not available 12/09/2022 Are you able to walk? [email or web address] Information not available 11/25/2021 Are you able to care for yourself? Yes Information not available 12/09/2022 Do you have difficulty dressing or bathing? No [email or web address] Information not available 12/09/2022 What is your exercise level? Moderate Information not available 11/25/2021 Mental Status None recorded. Family History Relationship Description Onset Age of this Age Resolved Age Notes LastModified by Organization Details LastModified Time Maternal Grandfather Diabetes mellitus Not available 2021 10:22:11 Medical History Condition Response Anxiety Disorder Y Depression/ depression Y Gynecological History Statement/Question Response Flow Light Date of LMP On BCP's at Conception? N N Was last menstrual period normal Y STIs/STDs N HPV Vaccine Y Duration of Flow (days) 4 Current Control Method IUD Date of control 06/04/2022 Are cycles usually normal N Frequency of Cycle (Q days) Sexually Active? Y IUD Menses Monthly N Age of first menstrual cycle 13 Date of Last Pap Smear 11/25/2021 Sexual Problems? N Desired Control Method IUD LMP Unknown N Obstetrics History GPAL:G 0 P 0 0 0 0 Past Encounters Encounter ID Performer Location Encounter Start Date Encounter Closed Date Diagnosis/Indication Diagnosis SNOMED-CT Code Diagnosis ICD10 Code [id number] Hilary Hidalgo [facility] [address],[facility] [place] [address] 11/25/2021 10:09:39 11/25/2021 10:44:13 Gynecologic examination 19508502 Z01.419 Vaginitis 12106290 N76.0 [id number] Yvonne [facility] [address],[facility] [place] [address] 12/16/2021 12:42:46 12/16/2021 13:44:25 Removal of intrauterine device 50320708 Z30.432 Missed period 41067316 N 92.5 [id number] Hilary Hidalgo [facility] [address],[facility] [place] [address] 06/04/2022 12:16:54 06/07/2022 16:42:04 Insertion of intrauterine contraceptive device 28441818 Z30.430 Screening procedure 2012 5006 Z13.9 [id number] Hilary Hidalgo [facility] [address],[place] [address] 07/26/2022 11:56:02 07/27/2022 18:08:33 Intrauterine device check 054264094 Z30.431 [id number] Hilary Hidalgo [facility] [address],[place] [address] 12/09/2022 10:39:37 12/09/2022 10:58:12 Gynecologic examination 76068475 Z01.419 Z11.3 Z11.8 [id number] Hilary Hidalgo [facility] [address],[place] [address] 04/26/2023 10:34:51 04/26/2023 11:33:20 Venereal disease screening 214165792 Z11.3 [id number] Hilary Hidalgo [facility] [address],[place] [address] 06/02/2023 09:10:31 06/02/2023 10:26:49 Vaginitis 88215320 N76.0 Health Concerns Section Related Observation LastModified by Organization Detai ls LastModified Time None Recorded Concern Status LastModified by Organization Details LastModified Time None Recorded Advance Directives Directive N: Payers Encounter Date Sequence Insurance Name Policy Number Policy Pollard Covered Member ID Pollard Member ID Guarantor Name 06/04/2022 1 [employer] [id number] Lu Manker [id number] Stephanie Manker 07/26/2022 1 [employer] [id number] Lu Manker [id number] Stephanie Manker 12/09/2022 1 [employer] [id number] Lu Manker [id number] Stephanie Manker 04/26/2023 1 [employer] [id number] Lu Manker [id number] Stephanie Manker 06/02/2023 1 [facility] [id number] Lu Coates [id number] Stephanie Coates Notes Date Note Type Note Provider Name and Address Organization Details Recorded Time 06/04/2022 text/html Here to discuss returning to Mirena IUD.Needs contraception & doesn't like having menstrual cycles.On her menses now day 5. ROMA Pak- [address], [place], [address], [facility] 06/23/2022 15:33:24 07/26/2022 text/html Here today for I UD string check. [address] [place], [address], [facility] 08/24/2022 06:47:50 12/09/2022 text/html Annual GYNReport ed bypatient.History:no gynecologic complaints Menstrual cycle:Normal menses (light period or amenorrheic some months on IUD) Urinary symptoms:No hematuria; No incontinence Vulva:No genital lesion Vagina:Normal vaginal discharge Breast:No breast pain; No breast lump; No nipple discharge Current Contraception:Satisfi ed with current contraception; Intrauterine device (iud) Sexual complaints:No sexual complaints; No pain during intercourse; Normal libido Menopausal Symptoms:No menopausal symptoms; Normal vaginal lubrication Psychological symptoms:No depression; No anxiety; No PMDD Preventive measures:Encourage self breast examination; Encourage regular exercise; Encourage no tobacco use; Encourage regular mammograms starting age 40 [facility] [address], [place], [address], [facility] 12/09/2022 10:55:49 04/26/2023 text/html Here today for updated STD screening due to unfaithful partner.No sx's Neg pain of abd/pelvis/flankNeg urinary sx'sNeg GI sx'sNeg N/V/F/C/DNeg Vag d/c, odor, irritation, itching [address] [place], [address], [facility] 04/26/2023 11:24:13 06/02/2023 text/html Here today for vaginal odor & dischargeReports gets frequent BVSA-but not new partnerRequests StD/Vag testing Neg pain of abd/pelvis/flankNeg urinary sx'sNeg GI sx'sNeg N/V/F/C/DNeg , irritation, itching ROMA Pak- [address], [place], [address], [place] [facility] 06/02/2023 10:23:25 OBGyn Episode No OBEpisode recorded.
--- OUTSIDE RECORDS SUMMARY | 2024-03-25 18:36 | XMS_ITS | Encounter Summary ---
Author Organization [facility] Address [address] [place] [address]. [place], [place] [id number] [place] [id number] Care Team Providers Care Cutter Machine Tender Name Role Phone Cuca Dutton Primary Care Provider [phone] Encounter Details Date Type Department Care Team (Latest Contact Info) Description 04/07/2020 Scan [facility] Scanned, Documents Social History Tobacco Use Types Packs/Day Years Used Date Smoking Tobacco: Never Smokeless Tobacco: Never Alcohol Use Standard Drinks/Week Comments No 0 (1 standard drink = 0.6 oz pur e alcohol) AUDIT-C Answer Date Recorded Frequency of Alcohol Consumption Never 06/22/2018 Average Number of Drinks Not on file 019 Frequency of Binge Drinking Not on file 05/27 PHQ-2 Answer Date Recorded PHQ-2 Score 2 06/22/2018 Comments No Sex and Gender Information Value Date Recorded Sex Assigned at Not on file Legal Sex Female 8:44 PM CDT Gender Identity Not on file Sexual Orientation Not on file documented as of this encounter Plan of Treatment Not on file documented as of this encounter Visit Diagnoses Not on filedocumented in this encounter Care Teams Cutter Machine Tender Relationship Specialty Start Date End Date Cuca Dutton FNP [address] [place] [id number] PCP - General Nurse Practitioner Family 05/04/18 documented as of this encounter
--- OUTSIDE RECORDS SUMMARY | 2024-03-25 18:36 | XMS_ITS | Encounter Summary ---
Author Organization [facility] Address [address] [place] [address]. [place], [place] [id number] [place] [id number] Care Team Providers Care Intensive Care Medicine Specialist Name Role Phone Cuca Dutton Primary Care Provider Reason for Visit * Reason Comments Attention Deficit Hyperactivity Disorder F/u medication Encounter Details Date Type Department Care Team (Latest Contact Info) Description 11/23/2021 10:20 AM CDT Office Visit [facility] [address] [place] [address] Cuca Dutton FNP [address] [place], [place] [id number] Attention Deficit Hyperactivity Disorder (F/u medication) Social History Tobacco Use Types Packs/Day Years Used Date Smoking Tobacco: Never Smokeless Tobacco: Never Alcohol Use Standard Drinks/Week Comments Yes 0 (1 standard drink = 0.6 oz pur e alcohol) social AUDIT-C Answer Date Recorded Frequency of Alcohol Consumption Never 06/22/2018 Average Number of Drinks Not on file 019 Frequency of Binge Drinking Not on file 05/27 PHQ-2 Answer Date Recorded PHQ-2 Score - If the patient scores above 3, please move on to questions 3-9 0 11/23/2021 Comments No Sex and Gender Information Value Date Recorded Sex Assigned at Not on file Legal Sex Female 8:44 PM CDT Gender Identity Not on file Sexual Orientation Not on file COVID-19 Exposure Response Date Recorded In the last 10 days, have yo u been in contact with someone who was confirmed or suspected to have Coronavirus/COVID-19? No / Unsure 11/23/2021 10:21 AM CDT documented as of this encounter Patient Instructions * Patient Instructions* CAROLYN Martin - 11/23/2021 10:20 AM CDT Take medication as prescribed and call for any issues or concerns Follow up at least every 6 months or sooner if needed. documented in this encounter Progress Notes * CAROLYN Martin - 11/23/2021 10:20 AM CDTSummary: adhd f/u, acne and ear issue Office Progress Note Reason for Visit: Attention Deficit Hyperactivity Disorder (F/u medication) History of Present Illness: Stephanie presents to the office for a f/u of her ADHD Left ear pain for about one week ago, going into her jaw. She is not sure if this is due to a dental issue but she does have an appt with her dentist. She says she grinds her teeth and will talk to the dentist about this. She does report some teeth grinding and is suppose to use a dental guard ADHD- She reports her medication is working well with no side effects. She does not need a refill today. Acne- Takes spironolactone daily and this works well. She denies any side effects from this medication. ROS: Review of Systems Constitutional: Negative for chills, diaphoresis, fever, malaise/fatigue and weight loss. HENT: Positive for ear pain. Negative for congestion, ear discharge, hearing loss, nosebleeds, sinus pain, sore throat and tinnitus. Eyes: Negative for blurred vision, double vision, photophobia, pain, discharge and redness. Respiratory: Negative for cough, hemoptysis, sputum production, shortness of breath, wheezing and stridor. Cardiovascular: Negative for chest pain, palpitations, orthopnea, claudication, leg swelling and PND. Gastrointestinal: Negative for abdominal pain, blood in stool, constipation, diarrhea, heartburn, melena, nausea and vomiting. Genitourinary: Negative for dysuria, flank pain, frequency, hematuria and urgency. Musculoskeletal: Negative for back pain, falls, joint pain, myalgias and neck pain. Skin: Negative for itching and rash. Neurological: Negative for dizziness, tingling, tremors, sensory change, speech change, focal weakness, seizures, loss of consciousness, weakness and headaches. Endo/Heme/Allergies: Negative for environmental allergies and polydipsia. Does not bruise/bleed easily. Psychiatric/Behavioral: Negative for depression, hallucinations, memory loss, substance abuse and suicidal ideas. The patient is not nervous/anxious and does not have insomnia. Medications: Current Outpatient Medications on File Prior to Visit Medication Sig ??? levonorgestrel (MIRENA) 20 MCG/24HR IUD 1 Intra Uterine Device by Intrauterine route once. ??? lisdexamfetamine (VYVANSE) 40 MG capsule Take 1 capsule (40 mg total) by mouth every morning. ??? Probiotic Product (PROBIOTIC ADVANCED) Cap ??? venlafaxine XR (EFFEXOR-XR) 75 MG 24 hr capsule Take 1 capsule (75 mg total) by mouth daily. No current facility-administered medications on file prior to visit. Allergies: Allergies Allergen Reactions ??? Sulfa Antibiotics Hives ??? Sulfamethoxazole-Trimethoprim Unknown Medical History: Past Medical History: Diagnosis Date ??? Depression Surgical History: Past Surgical History: Procedure Laterality Date ??? MYRINGOTOMY Social History: Social History Socioeconomic History ??? Marital status: Single Tobacco Use ??? Smoking status: Never Smoker ??? Smokeless tobacco: Never Used Vaping Use ??? Vaping Use: Every day ??? Substances: Nicotine, Flavoring ??? Devices: Pre-filled or refillable cartridge, Refillable tank Substance and Sexual Activity ??? Alcohol use: Yes Comment: social ??? Drug use: Yes Types: Marijuana ??? Sexual activity: Never control/protection: Inserts Family History: Family History Problem Relation Name Age of Onset ??? No Known Problems Mother ??? No Known Problems Father ??? Diabetes Maternal Grandfather PE: Physical Exam Vitals and nursing note reviewed. Constitutional: General: She is not in acute distress. Appearance: Normal appearance. She is well-developed and well-groomed. She is not ill-appearing, toxic-appearing or diaphoretic. HENT: Head: Normocephalic and atraumatic. Jaw: There is normal jaw occlusion. Right Ear: Hearing, tympanic membrane, ear canal and external ear normal. Left Ear: Hearing, tympanic membrane, ear canal and external ear normal. Nose: Nose normal. Mouth/Throat: Lips: [place]. Mouth: Mucous membranes are moist. Dentition: Normal dentition. No dental tenderness, gingival swelling, dental caries or gum lesions. Pharynx: Oropharynx is clear. Uvula midline. Eyes: General: Lids are normal. Vision grossly intact. Gaze aligned appropriately. Extraocular Movements: Extraocular movements intact. Conjunctiva/sclera: Conjunctivae normal. Neck: Thyroid: No thyroid mass, thyromegaly or thyroid tenderness. Vascular: Normal carotid pulses. No carotid bruit, hepatojugular reflux or JVD. Trachea: Trachea and phonation normal. Cardiovascular: Rate and Rhythm: Normal rate and regular rhythm. Heart sounds: Normal heart sounds. Pulmonary: Effort: Pulmonary effort is normal. No tachypnea, bradypnea, accessory muscle usage, prolonged expiration, respiratory distress or retractions. Breath sounds: Normal breath sounds and air entry. No stridor, decreased air movement or transmitted upper airway sounds. No decreased breath sounds, wheezing, rhonchi or rales. Abdominal: General: Abdomen is flat. Bowel sounds are normal. There is no distension or abdominal bruit. Thereare no signs of injury. Palpations: Abdomen is soft. Tenderness: There is no abdominal tenderness. Musculoskeletal: Cervical back: Full passive range of motion without pain, normal range of motion and neck supple. No spinous process tenderness or muscular tenderness. Lymphadenopathy: Cervical: No cervical adenopathy. Skin: General: Skin is warm and dry. Capillary Refill: Capillary refill takes less than 2 seconds. Findings: No rash. Neurological: Mental Status: She is alert and oriented to person, place, and time. Cranial Nerves: No cranial nerve deficit. Sensory: Sensation is intact. No sensory deficit. Motor: Motor function is intact. Coordination: Coordination is intact. Coordination normal. Gait: Gait is intact. Gait normal. Psychiatric: Attention and Perception: Attention and perception normal. Mood and Affect: Mood and affect normal. Speech: Speech normal. Behavior: Behavior normal. Behavior is cooperative. Thought Content: Thought content normal. Cognition and Memory: Cognition and memory normal. Judgment: Judgment normal. There were no vitals filed for this visit. Diagnoses/Impression: 1. Attention deficit hyperactivity disorder (ADHD), combined type 2. Encounter for long-term (current) drug use CANCELED: DRUG MONITORING, PANEL 5, SCREEN (U) 3. Acne vulgaris spironolactone (ALDACTONE) 100 MG tablet 4. Left ear pain Recommendations and Plan: 1. Attention deficit hyperactivity disorder (ADHD), combined type - advised to continue current medication as prescribed - CSA updated today. She did leave prior to getting her UDS - routine, 6 month f/u advised, sooner if needed. 2. Encounter for long-term (current) drug use - advised to continue current medication as prescribed - CSA updated today. She did leave prior to getting her UDS - routine, 6 month f/u advised, sooner if needed. 3. Acne vulgaris - spironolactone (ALDACTONE) 100 MG tablet; TAKE 1 TABLET BY MOUTH DAILY TAKE 1 TABLET DAILY Dispense: 90 tablet; Refill: 3 - advised to continue medication as prescribed and call for any issues or concerns - routine f/u advised, sooner if needed. 4. Left ear pain No issues found. - advised to f/u with her dentist as scheduled, since there is some evidence of teeth grinding and biting of her inner cheeks, upon examination. No abnormalities noted upon exam Orders Placed This Encounter ??? DISCONTD: spironolactone (ALDACTONE) 100 MG tablet ??? spironolactone (ALDACTONE) 100 MG tablet Cannot display discharge medications since this is not an admission. I spent 32 minutes today reviewing the patient's medical record, obtaining history, performing an exam, ordering medications, tests, and/or procedures, documenting in the medical record, counseling and educating the patient/family/caregiver, reviewing and communicating test results and coordinationof care. PCP: CAROLYN VALENZUELA 11/23/2021 documented in this encounter Plan of Treatment Not on file documented as of this encounter Visit Diagnoses Diagnosis Attention deficit hyperactivity disorder (ADHD), combined type- Primary Encounter for long-term (current) drug use Encounter for long-term (current) use of other medications Acne vulgaris Other acne Left ear pain Otalgia, unspecified documented in this encounter Additional Health Concerns Assessment Noted Time PHQ-9 Depression Total Score: 4 11/24/19 22 11:18 AM CDT documented as of this encounter Care Teams Intensive Care Medicine Specialist Relationship Specialty Start Date End Date Cuca Dutton FNP [address] [place] [id number] PCP - General Nurse Practitioner Family 05/04/18 documented as of this encounter
--- OUTSIDE RECORDS SUMMARY | 2024-03-25 18:36 | XMS_ITS | Encounter Summary ---
Author Organization [facility] Address [address] [place] [address]. [place], [place] [id number] [place] [address] Care Team Providers Care Digital Advertising Analyst Name Role Phone Cuca Dutton Primary Care Provider [phone] Reason for Visit * Reason Onset Date Comments Problem 02/16/2024 Hematuria/Burnin g Encounter Details Date Type Department Care Team (Late st Contact Info) Description 02/16/2024 Telephone [facility] Family & Internal Medicine [facility] [address] [place] [address] Cuca Dutton FNP [address] [place] [address] Problem (Hematuria/Burning) Social History Tobacco Use Types Packs/Day Years Used Date Smoking Tobacco: Never Passive Smoke Exposure: Never Smokeless Tobacco: Never Alcohol Use Standard Drinks/Week Comments Not Currently 0 (1 standard drink = 0.6 oz pur e alcohol) AUDIT-C Answer Date Recorded Frequency of Alcohol Consumption Never 06/22/2018 Average Number of Drinks Not on file 019 Frequency of Binge Drinking Not on file 05/27 PHQ-2 Answer Date Recorded Patient Health Questionnaire-2 Score 2 05/31/2023 Comments No Sex and Gender Information Value Date Recorded Sex Assigned at Not on file Legal Sex Female 8:44 PM CDT Gender Identity Not on file Sexual Orientation Not on file documented as of this encounter Progress Notes * Hannah Avelar MA - 02/16/2024 3:16 PM CST Offered to have patient come in 01/2224 @ 8:00 am for UA to r/u possible uti and stated cannot comein during that time. Stated will just go to urgent. Suggested [facility] to avoid urgent care and stated cannot make it there either will just go to a local urgent care. La,rma L MOLD BONDER * CAROLYN Martin - 02/16/2024 2:46 PM CST Okay to get UA L MOLD BONDER * Hannah Avelar MA - 02/16/2024 1:32 PM CST Patient called c/o blood in urine and lower back pain. Some burning with urination. Ok to bring in for UA? [phone] L MOLD BONDER documented in this encounter Plan of Treatment Not on file documented as of this encounter Visit Diagnoses Not on filedocumented in this encounter Additional Health Concerns Assessment Noted Time PHQ-9 Depression Total Score: 8 05/31/19 24 10:12 AM SHELL MOLD BONDER documented as of this encounter Care Teams Digital Advertising Analyst Relationship Specialty Start Date End Date Cuca Dutton FNP [address] [place] [id number] PCP - General Nurse Practitioner Family 05/04/18 documented as of this encounter
--- OUTSIDE RECORDS SUMMARY | 2024-03-25 18:36 | XMS_ITS | Encounter Summary ---
Author Organization [facility] Address [address] [place] [address]. [place], [place] [phone] [place] [phone] Care Team Providers Care Fire Prevention Officer Name Role Phone Antonio Nicholson Primary Care Provider [phone] Reason for Visit * Reason Onset Date Comments Medication 02/04/2020 Encounter Details Date Type Department Care Team (Late st Contact Info) Description 02/04/2020 Telephone [facility] Family & Internal Medicine [facility] [address] [place] [address] Antonio Nicholson FNP [address] [place], [place] [phone] Medication Social History Tobacco Use Types Packs/Day Years [...] as of this encounter Progress Notes * Corry Degroot RN - 02/05/2020 11:06 AM CST Spoke to patient; verbalized understanding. DESK MANAGER * Norma Araujo MA - 02/04/2020 3:55 PM CST Lm and sent rx 02/04/20 tn DESK MANAGER * CAROLYN Martin - 02/04/2020 11:49 AM CST Buspar 5 mg tid for anxiety, she should start with taking this once daily for 3 days and then gradually increase to 3 times a day, we can always increase this dose if needed. Dsp 90 DESK MANAGER * Aga Bui - 02/04/2020 10:33 AM CST Pt calling, pt stated that she was on prozac for about a month or two and d/c it months ago as it made her feel emotionless. She is having anxiety more so than depression and would like something ordered. Has tried zoloft without success as well. Allergies: Allergies Allergen Reactions ??? Sulfamethoxazole-Trimethoprim Unknown [id number] [address] [facility] [address] [facility] [address] Last visit with ANTONIO NICHOLSON in FAMILY PRACTICE was on: 11/08/2019 in [facility] No future appointments. Current Outpatient Medications: ??? fluconazole 150 MG tablet, Take one tablet now and may repeat in 72 hours, Disp: 2 tablet, Rfl:0 ??? levonorgestrel (MIRENA, 52 MG,) 20 MCG/24HR IUD, 1 Intra Uterine Device by Intrauterine route once., Disp: , Rfl: DESK MANAGER documented in this encounter Plan of Treatment Not on file documented as of this encounter Visit Diagnoses Diagnosis Anxiety- Primary Anxiety state, unspecified documented in this encounter Care Teams Fire Prevention Officer Relationship Specialty Start Date End Date Antonio Nicholson FNP [address] [place] [id number] PCP - General Nurse Practitioner Family 05/04/18 documented as of this encounter
--- OUTSIDE RECORDS SUMMARY | 2024-03-25 18:36 | XMS_ITS | Encounter Summary ---
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 in my presence. I have reviewed the chart and agree that the record reflects my personal performance and is accurate and complete. Electronically signed: Dr. Moore Date: 01/25/22 Time: 5:57 AM * Charlie Dillon RN - 01/24/2022 9:50 AM CDT Patient agitated with psych team. Patient cursing and yelling at psych team. Patient walking out ofroom and yelling at staff members. Patient instructed to return to room but the patient refused andcontinued to make threats towards this RN. When this RN and security attempted to redirect the patient she became combative and attempted to kick and hit staff members. PRN Versed order obtained Torie QUINONES for acute agitation. * Cierra Liz RN - 01/24/2022 9:10 AM CDT Pt on phone with her mom when she became very upset and manic. RN took away the patient phone * Cierra Liz RN - 01/24/2022 7:25 AM CDT SAGAR Liz took over patient care * Victoria Arias RN - 01/24/2022 5:11 AM CDT Stephanie was tearful at the beginning of the shift complaining that no one has done anything for her and that she wants to go home. Nurse attended to her needs and she requested for medications. Wolf has not eaten anything for 3 days. All her lunch and dinner tray still in room untouched. Pt took meds with soda and went sleep. At 5:05 , she woke up and wanted to make calls, When told that itstoo early to call, she started screaming. She then called her dad and became agitated again. After yelling for a while she calmed and went back to bed * Eliot Chopra RN - 01/23/2022 6:12 PM CDT Patient able to be roused with verbal stimulus, resting with eyes closed. VSS, nad denies needs andwent back to resting with eyes closed. * Woody Moore MD - 01/23/2022 5:58 PM CDT Patient signed out to me by Dr. Mays at 6:00 PM Chief Complaint: Chief Complaint Patient presents with ??? MANIC BEHAVIOR Brought in by EMS for flight of ideas and manic behavior. Pt reportedly is going to meet and hang out with Aiden Noriega . Per EMS pt friend stated she has been out of meds for at least week. The patient is being evaluated for manic behavior. Pt is currently admitted to At this time the patient's condition is currently admitted to psychiatry 4W involuntary. stable Vitals: 01/23/22 0831 01/23/22 0937 01/23/22 1050 01/23/22 1548 BP: Pulse: Resp: Temp: SpO2: 95% 98% 94% 97% Weight: Height: Estimated body mass index is 18.88 kg/m?? as calculated from the following: Height as of this encounter: 1.626 m (5' 4 ). Weight as of this encounter: 49.9 kg (110 lb). At this time the following studies are: Labs Reviewed ALCOHOL ETHYL BLOOD - Abnormal; Notable for the following components: Result Value Ethanol (mg/dL) 15 (*) Ethanol Calculated (g/dL) 0.015 (*) All other components within normal limits Narrative: Ethanol Interp <10: None Detected. 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: >100 mg/dl Potentially Critical: >250 mg/dl Potentially Fatal >400 mg/dl Ethanol in the patient's blood will contribute to the osmolar gap. Ethanol's contribution to the osmolar gap can be estimated by dividing the concentration of ethanol in mg/dL by 4.6. This test is for clinical use only and does not equal a ARMANDO for legal purposes. CBC W AUTO DIFFERENTIAL - Abnormal; Notable for the following components: MPV 8.9 (*) All other components within normal limits COMPREHENSIVE METABOLIC PANEL - Abnormal; Notable for the following components: Potassium 3.3 (*) CO2 20 (*) Glucose 62 (*) All other components within normal limits URINE DRUG SCREEN IMMUNOASSAY - Abnormal; Notable for the following components: Amphetamines Screen Urine Positive (*) Cannabinoids Screen Urine Positive (*) All other components within normal limits Narrative: The Urine Toxicology Screening Panel does not screen for Propoxyphene, Meprobamate, Carisoprodol, Trazodone, nbvt-ret-aipyyia medications and/or volatiles (Acetone, Isopropanol, Methanol or Ethylene Glycol). Ethanol, Salicylate, Acetaminophen, Tricyclic Antidepressants and several therapeutic drugsmay be individually assayed in serum or plasma specimen. Toxicology testing by the [facility] is an aid to medical diagnosisand treatment of patients. No documented chain of custody was maintained. Results are intended to be used for clinical purposes only. MAGNESIUM BLOOD - Normal SYPHILIS ANTIBODY CASCADING REFLEX - Normal HCG BETA BLOOD QUANTITATIVE No orders to display No results found. Plan: Admission to psychiatry- 4W involuntary -No acute or emergent events while under my care- 0600- SRIDHAR to Dr. Mays pending bed assignment. Diagnosis: The encounter diagnosis was Manic episode ([facility]). Disposition: SRIDHAR to Dr. Mays By signing my name below, I, Km Murphy, attest that this documentation has been prepared under the direction and in the presence of Dr. Moore. Signed: Mayra Cid. I, Dr. Moore, personally performed the services described in this documentation. All medical record entries made by the scribe were at my direction and in my presence. I have reviewed the chart and agree that the record reflects my personal performance and is accurate and complete. Electronically signed: Dr. Moore Date: 01/24/22 Time: 5:22 AM * Eliot Chopra RN - 01/23/2022 11:38 AM CDT Psych stopped in to speak with patient and patient became very agitated, screaming and verbally abusive toward staff. This RN attempted to deescalate patient and explain the process but patient ran into the bathroom and slammed the door. ERP notified and see orders. 3 security guards 2 of which were female helped to restrain patient to bed temporarily while 5 haldol and 2 versed were administered. New blanket provided. * Eliot Chopra RN - 01/23/2022 10:51 AM CDT Adjusted spo2 monitor on patient finger. o2 turned off as patient is maintaining above 95% on room air. Sticker frequently reads incorrectly due to acrylic nail. When adjusted at bedside readings maintain 97% or above. * Eliot Chopra RN - 01/23/2022 8:31 AM CDT Placed patient on 2L nasal cannula to maintain sats above 90. NAD. Patient roused to stimulus of cannula being placed but returned to resting comfortably. * Eliot Chopra RN - 01/23/2022 7:49 AM CDT Patient resting with eyes closed. NAD and vss. Will continue to monitor. * Uzma Mays MD - 01/23/2022 6:13 AM CDT ASSUMED CARE NOTE Patient signed out to me by Dr. Moore at 6:13 AM. Stephaine Coates is a 21 year old female with history of bipolar disorder being evaluated for manic behavior while off medications. At this time the patient's condition is Stable. Plan for 4W involuntary admission. Did receive Haldol and Ativan this morning due to increased agitation without ability to redirect. Vitals: 01/23/22 0831 01/23/22 0937 01/23/22 1050 01/23/22 1548 BP: Pulse: Resp: Temp: SpO2: 95% 98% 94% 97% Weight: Height: Clinical Impression: 1. Manic episode (CMS/HCC) Disposition: Signed out to Dr. Moore. Continuing to await 4W involuntary admission. * Travis Hyde RN - 01/23/2022 5:31 AM CDT . Shift Summary: Throughout this shift Stephanie, born 2000, has been sleeping early on the start of the shift. Around 2200 she started demanding to leave and was explained she could not leave because she was held on 96 hrs involuntary and thereafter she calmed down and asked for some food and slept until late when she started again demanding Vap , and stating I want to leave now yelling and banging door. She received PRN for agitation Versed 2 mg and Haldol 5 mg (IM). Patient verbalizes understanding of individualized care plan: No Patient educated on mask policy and usage while admitted: yes Patient compliant with wearing a mask on the unit: refused Remains on Will continue to monitor for appropriateness of thought patterns & behaviors during hospitalization. Remains: There are no questions and answers to display. Interventions: Stephanie received PRN /IM for agitation Data: No data found. Weight: 49.9 kg (110 lb) Wt Readings from Last 3 Encounters: 01/22/22 49.9 kg (110 lb) Vital Signs: Patient Vitals for the past 24 hrs: Temp Pulse Resp BP 01/22/22 1737 98.7 ??F (37.1 ??C) (!) 110 18 145/82 Hand off: - End of shift summary reported to oncoming RN. Oncoming nurse made aware of any issues throughout the shift, outstanding behaviors, use of PRN medications, and any other pertinent data needed to care for this patient. All questions regarding patient care have been answered. * Nilsa Rodriguez - 01/23/2022 5:26 AM CDT Pt asking staff to roll her a blunt stating that if she's not getting her vape that that's the acceptable alternative * Nilsa Rodriguez - 01/23/2022 4:57 AM CDT Pt again becoming increasingly agitated over the wait time and wanting to be discharged. She is also upset about not being prescribed her medications * Travis Hyde RN - 01/23/2022 12:20 AM CDT Stephanie became increasingly agitated around 2200 and demanding to leave. Call placed to the Psych MD who explained that Stephanie was held for 96 hrs involuntary. The MD and the electrical discharge machine operator explained why she could leave. She showed cooperation and requested TV on and somethingto eat. PRN med for agitation ordered as well. At this time she resting in bed quietly. * Nilsa Rodriguez - 01/22/2022 10:45 PM CDT Pt overheard RN talking about admission and became agitated. Pt demanding to talk to provider and wanting to be discharged to go home * Woody Moore MD - 01/22/2022 8:22 PM CDT Patient signed out to me by Dr Martinez at 6:22 PM Chief Complaint: Chief Complaint Patient presents with ??? MANIC BEHAVIOR Brought in by EMS for flight of ideas and manic behavior. Pt reportedly is going to meet and hang out with Aiden Noriega . Per EMS pt friend stated she has been out of meds for at least week. The patient is being evaluated for eladio At this time the patient's condition is fair Vitals: 01/22/22 1737 BP: 145/82 Pulse: (!) 110 Resp: 18 Temp: 98.7 ??F (37.1 ??C) SpO2: 100% Weight: 49.9 kg (110 lb) Height: 1.626 m (5' 4 ) Estimated body mass index is 18.88 kg/m?? as calculated from the following: Height as of this encounter: 1.626 m (5' 4 ). Weight as of this encounter: 49.9 kg (110 lb). At this time the following studies are: Labs Reviewed ALCOHOL ETHYL BLOOD - Abnormal; Notable for the following components: Result Value Ethanol (mg/dL) 15 (*) Ethanol Calculated (g/dL) 0.015 (*) All other components within normal limits Narrative: Ethanol Interp <10: None Detected. 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: >100 mg/dl Potentially Critical: >250 mg/dl Potentially Fatal >400 mg/dl Ethanol in the patient's blood will contribute to the osmolar gap. Ethanol's contribution to the osmolar gap can be estimated by dividing the concentration of ethanol in mg/dL by 4.6. This test is for clinical use only and does not equal a ARMANDO for legal purposes. CBC W AUTO DIFFERENTIAL - Abnormal; Notable for the following components: MPV 8.9 (*) All other components within normal limits COMPREHENSIVE METABOLIC PANEL - Abnormal; Notable for the following components: Potassium 3.3 (*) CO2 20 (*) Glucose 62 (*) All other components within normal limits URINE DRUG SCREEN IMMUNOASSAY - Abnormal; Notable for the following components: Amphetamines Screen Urine Positive (*) Cannabinoids Screen Urine Positive (*) All other components within normal limits Narrative: The Urine Toxicology Screening Panel does not screen for Propoxyphene, Meprobamate, Carisoprodol, Trazodone, rein-mwy-blyceyc medications and/or volatiles (Acetone, Isopropanol, Methanol or Ethylene Glycol). Ethanol, Salicylate, Acetaminophen, Tricyclic Antidepressants and several therapeutic drugsmay be individually assayed in serum or plasma specimen. Toxicology testing by the [facility] is an aid to medical diagnosisand treatment of patients. No documented chain of custody was maintained. Results are intended to be used for clinical purposes only. MAGNESIUM BLOOD - Normal SYPHILIS ANTIBODY CASCADING REFLEX - Normal HCG BETA BLOOD QUANTITATIVE No orders to display No results found. Plan: Psychiatric evaluation pending. Dispo on their recs. 8:00 PM - Psych to admit. Patient is medically clear for admission to psychiatry. 6:00 AM - Psych bed pending, signed out to Dr Mays. Diagnosis: The encounter diagnosis was Manic episode (CMS/FORMERLY [facility]). Disposition: Admit to psychiatry. * Kiera Larson RN - 01/22/2022 6:59 PM CDT Pt requesting to leave. Pt aware of plan for psych team to speak with family prior to making decision on discharge. Requesting personal vape. Aware that she can not have personal belongings at this time. * Pérez Santos - 01/22/2022 6:46 PM CDT Elopement band placed on patient's wrist. * Lena Martinez MD - 01/22/2022 5:42 PM CDT ED Attending Note Patient seen and evaluated with resident Dr. Vivek Vargas. Interval History: Stephanie Coates is a 21 year old female BIBEMS with a reports past medical history of ADHD and anxiety is presenting to the ED for manic behavior. The patient reports being in prior behavioral healthunits the past few months. She states her mother's girlfriend is not right and she is worried about her mother's girlfriend's son. She states she was recently seen at [facility] and was pulled over with her dog. She states the police then brought her to the hospital. She states she is hereto witness what her mother is doing with that lady. She denies drugs. [facility] was 2 weeks ago. She reports some congestion. She denies SI and HI. She reports that after she gets out of here, she need to get on a plane because she is going on tour with Aiden Noriega. She states she is here because she recently moved out of her dads house because they did not get along. Patient's friend called EMS and stated that the patient gets like this when she is out of her medication. HPI is limited 2/2 psychiatric disorder. No past medical history on file. No past surgical history on file. Social History Socioeconomic History ??? Marital status: Single Spouse name: Not on file ??? Number of children: Not on file ??? Years of education: Not on file ??? Highest education level: Not on file Occupational History ??? Not on file Tobacco Use ??? Smoking status: Not on file ??? Smokeless tobacco: Not on file Substance and Sexual Activity ??? Alcohol use: Not on file ??? Drug use: Not on file ??? Sexual activity: Not on file Other Topics Concern ??? Not on file Social History Narrative ??? Not on file Social Determinants of Health Financial Resource Strain: Not on file Food Insecurity: Not on file Transportation Needs: Not on file Physical Activity: Not on file Stress: Not on file Social Connections: Not on file Intimate Partner Violence: Not on file Housing Stability: Not on file Review of Systems: (+) positive ROS is limited 2/2 psychiatric disorder. See HPI for further details. Vitals: 01/22/22 1737 BP: 145/82 Pulse: (!) 110 Resp: 18 Temp: 98.7 ??F (37.1 ??C) SpO2: 100% Weight: 49.9 kg (110 lb) Height: 1.626 m (5' 4 ) Exam: Constitutional: well developed, well nourished, no acute distress HENT: normocephalic, atraumatic, moist oral mucosa, conjunctiva normal Eyes: PERRL, EOMi Neck: supple, normal ROM Cardiovascular: regular rate and rhythm, Respiratory: clear to auscultation bilaterally, no wheezes, no respiratory distress Abdomen: soft, non-tender, non-distended Genitourinary: deferred Musculoskeletal: no edema or deformities Skin: warm, dry, no lesions Neurological: awake, alert&Ox4, moving all extremities, no focal motor/sensation deficits. Psychiatric: pressured speech, tangential, pleasant, cooperative, grandiose delusions Medical Decision Makin. Manic behavior Differential diagnosis considered: Manic episode vs drug induced psychosis vs medication noncompliance Plan: Psych labs, psych consult Results: Labs Reviewed CBC W AUTO DIFFERENTIAL - Abnormal; Notable for the following components: Result Value MPV 8.9 (*) All other components within normal limits URINE DRUG SCREEN IMMUNOASSAY - Abnormal; Notable for the following components: Amphetamines Screen Urine Positive (*) Cannabinoids Screen Urine Positive (*) All other components within normal limits Narrative: The Urine Toxicology Screening Panel does not screen for Propoxyphene, Meprobamate, Carisoprodol, Trazodone, yyny-pil-qxbrkfd medications and/or volatiles (Acetone, Isopropanol, Methanol or Ethylene Glycol). Ethanol, Salicylate, Acetaminophen, Tricyclic Antidepressants and several therapeutic drugsmay be individually assayed in serum or plasma specimen. Toxicology testing by the [facility] is an aid to medical diagnosisand treatment of patients. No documented chain of custody was maintained. Results are intended to be used for clinical purposes only. ALCOHOL ETHYL BLOOD COMPREHENSIVE METABOLIC PANEL MAGNESIUM BLOOD HCG BETA BLOOD QUANTITATIVE SYPHILIS ANTIBODY CASCADING REFLEX No orders to display ED course: The patient's Oxygen Saturation Monitor was interpreted by me. The reading was 100%. The patient was on room air at the time of the reading. This is interpreted as normal. 17:42 -- Discussed all the pertinent aspects of the case with psychiatry who will see the patient. 18:00 -- SRIDHAR to Dr. Moore pending labs and psych recs Consult Yes Procedure done at this time No Ultrasound done at this time No CRITICAL CARE IN THE ED No Orders and Medicine administered during this encounter: Orders Placed This Encounter ??? ALCOHOL ETHYL BLOOD ??? CBC W AUTO DIFFERENTIAL ??? COMPREHENSIVE METABOLIC PANEL ??? MAGNESIUM BLOOD ??? HCG BETA BLOOD QUANTITATIVE ??? URINE DRUG SCREEN IMMUNOASSAY ??? SYPHILIS ANTIBODY CASCADING REFLEX ??? IP CONSULT TO PSYCHIATRY Medications - No data to display Clinical Impression: No diagnosis found. Scripts: Disposition: Pending - SRIDHAR to Dr. Moore Follow-up: By signing my name below, I, Lynn Valdivia, attest that this documentation has been prepared underthe direction and in the presence of Dr. Martinez. Signed: Mayra Cadet. I, Dr. Martinez, personally performed the services described in this documentation. All medical recordentries made by the scribe were at my direction and in my presence. I have reviewed the chart and agree that the record reflects my personal performance and is accurate and complete. Electronically signed: Dr. Martinez Date: 01/26/22 Time: 6:45 AM * Kiera Larson RN - 01/22/2022 5:40 PM CDT Pt presents to ED via EMS for mental health concerns. Per EMS pt friend called 911 stating she hasn't been taking her meds appropriately and has been acting off. Pt is stating that she is flying to [place] with Aiden gay to be on tour with him. Pt has flight of ideas, bouncing from one topic to the next rapidly. Pt denies SI/HI, stating she is on cloud 9 and wants to hug everyone . Pt is AxOx4. Denies recent illness/injury. No areas of physical concern noted at this time. Cooperative at this time. Provided UA sample and changed into psych safe appropriate clothing. * Brianne Goodrich RN - 01/22/2022 5:22 PM CDT Bed: C01 Expected date: Expected time: Means of arrival: Comments: EMS: 21yo, paranoid wellness check documented in this encounter Plan of Treatment Not on file documented as of this encounter Procedures Procedure Name Priority Date/Time Associated Diagnosis Comments CARDIAC EKG ORDER 01/26/2022 12: 20 PM CDT EKG 12-LEAD Routine 01/24/2022 7:56 AM CDT Manic episode (HCC) SYPHILIS ANTIBODY CASCADING REFLEX STAT 01/22/2022 5:50 PM CDT CBC W AUTO DIFFERENTIAL STAT 01/22/2022 5:50 PM CDT COMPREHENSIVE METABOLIC PANEL STAT 01/22/2022 5:50 PM CDT HCG BETA BLOOD QUANTITATIVE STAT 01/22/2022 5:50 PM CDT MAGNESIUM BLOOD STAT 01/22/2022 5:50 PM CDT ALCOHOL ETHYL BLOOD STAT 01/22/2022 5 :50 PM CDT URINE DRUG SCREEN IMMUNOASSAY STAT 01/22/2022 5:47 PM CDT documented in this encounter Results * CARDIAC EKG ORDER (01/26/2022 12:20 PM CDT) Narrative 01/26/2022 12:20 PM CDT Ordered by an unspecified provider. Scanned Document CARDIAC SERVICES ORD ERABLES * EKG 12-LEAD (01/24/2022 7:56 AM CDT) Ventricular Rate 79 BPM [facility] Atrial Rate 79 BPM [facility] P-R Interval 112 ms [facility] QRS Duration ms 74 ms [facility] Q-T Interval ms 338 ms [facility] QTC Calculation (Bezet) 387 ms [facility] Calculated P [place] 44 degrees [facility] Calculated R [place] 83 degrees [facility] Calculated T [place] 51 degrees [facility] Interpretation EKG NORMAL SINUS RHYTHM NORMAL ECG NO PREVIOUS ECGS AVAILABLE Confirmed by IVIS ARZOLA MD ([id number]) on 01/27/2022 8:42:05 AM [facility] MUSE 01/24/2022 7:56 AM CDT 01/27/2022 8:42 AM CDT Woody Moore MD ECG ORDERABLES Performing Organization Address City/[facility]/ZIP Co de Phone Number [facility] MUSE * SYPHILIS ANTIBODY CASCADING REFLEX (01/22/2022 5:50 PM CDT) [facility] Treponema pallidum Antibody Non-react bernabe Non-react bernabe 01/22/2022 6:43 PM CDT [facility] Comment: No Laboratory evidence of syphilis infection. ?? Note: ??Circulating antibodies may be low or undetectable in early infection. ??If recent exposure is suspected, re-draw sample in 2-4 weeks and repeat testing. Blood BLOOD SPECIMEN / Unknown Venipuncture / Unknown 01/22/2022 5:50 PM CDT 01/22/2022 5:56 PM CDT Lena Martinez MD LAB - SEROLOGY ORDER LINH Performing Organization Address [facility] Co de Phone Number [facility] [address] [place] [address], [facility] [phone] * HCG BETA BLOOD QUANTITATIVE (01/22/2022 5:50 PM CDT) [facility] Beta-hCG Total Quantitative <3 mIU/mL 01/22/2022 6:43 PM CDT [facility] Comment: This assay is cleared for use [...] - CHEMISTRY THERESA COMBS Performing Organization Address City/[facility]/ZIP Co de Phone Number [address] [address], [facility] [phone] * MAGNESIUM BLOOD (01/22/2022 5:50 PM CDT) Magnesium 1.8 1.6 - 2.6 mg/dL 01/22/2022 6:32 PM CDT [facility] Blood BLOOD SPECIMEN / Unknown Venipuncture / Unknown 01/22/2022 5:50 PM CDT 01/22/2022 5:57 PM CDT Lena Martinez MD LAB - CHEMISTRY THERESA COMBS Performing Organization Address City/[facility]/ZIP Co de Phone Number [address] [address], [facility] [phone] * (ABNORMAL) COMPREHENSIVE METABOLIC PANEL (01/22/2022 5:50 PM CDT) BUN 9 7 - 26 mg/dL 01/22/2022 6:32 PM CDT [facility] Creatinine 0.63 0.56 - 0.96 mg/dL 01/22/2022 6:32 PM T [facility] Sodium 139 136 - 145 mmol/L 01/22/2022 6:32 PM T [facility] [facility] Potassium 3.3(L) 3.5 - 4.5 mmol/L 01/22/2022 6:32 PM [facility] Chloride 105 98 - 107 mmol/L 01/22/2022 6:32 PM [facility] CO2 20(L) 22 - 29 mmol/L 01/22/2022 6:32 PM [facility] Glucose 62(L) 70 - 115 mg/dL 01/22/2022 6:32 PM [facility] Calcium 8.8 8.4 - 10.2 mg/dL 01/22/2022 6:32 PM [facility] Protein Total 6.7 6.0 - 8.3 g/dL 01/22/2022 6:32 PM [facility] Albumin 4.0 3.4 - 5.0 g/dL 01/22/2022 6:32 PM [facility] Bilirubin Total 0.6 0.2 - 1.2 mg/dL 01/22/2022 6:32 PM [facility] Alkaline Phosphatase 81 40 - 150 U/L 01/22/2022 6:32 PM [facility] ALT 9 5 - 55 U/L 01/22/2022 6:32 PM [facility] AST 15 5 - 34 U/L 01/22/2022 6:32 PM [facility] Anion Gap 17 8 - 18 01/22/2022 6:32 PM [facility] BUN/Creatinine Ratio 14 7 - 23 01/22/2022 6:32 PM [facility] Osmolality Calculated 285 270 - 300 mOsm/kg 01/22/2022 6:32 PM [facility] Albumin/Globulin Ratio 1.5 1.1 - 2.3 01/22/2022 6:32 PM [facility] eGFR by CKD-EPI >90 >=90 mL/min/1.7 3 m2 01/22/2022 6:32 PM [facility] Blood BLOOD SPECIMEN / Unknown Venipuncture / Unknown 01/22/2022 5:50 PM CDT 01/22/2022 5:57 PM CDT Lena Martinez MD LAB - CHEMISTRY ORDE [facility] Organization Address City/State/ZIP Co de Phone Number [facility] [address] [place] [address], [facility] [phone] * (ABNORMAL) CBC W AUTO DIFFERENTIAL (01/22/2022 5:50 PM CDT) WBC 9.7 3.5 - 10.5 10? 3 /uL 01/22/2022 6:01 PM [facility] RBC 4.02 3.80 - 5.20 10? 6 /uL 01/22/2022 6:01 PM [facility] Hemoglobin 13.1 12.0 - 15.6 g/dL 01/22/2022 6:01 PM [facility] Hematocrit 37.6 35.0 - 45.0 % 01/22/2022 6:01 PM [facility] MCV 93.5 80.7 - 98.3 fL 01/22/2022 6:01 PM [facility] MCH 32.6 26.7 - 34.0 pg 01/22/2022 6:01 PM [facility] MCHC 34.8 30.8 - 35.9 g/dL 01/22/2022 6:01 PM [facility] RDW-SD 42.7 36.0 - 50.0 fL 01/22/2022 6:01 PM [facility] RDW-CV 12.3 11.2 - 14.8 % 01/22/2022 6:01 PM [facility] Platelet Count 265 150 - 400 10? 3 /uL 01/22/2022 6:01 PM [facility] MPV 8.9(L) 9.4 - 12.9 fL 01/22/2022 6:01 PM [facility] nRBC Absolute 0.00 0 10? 3 /uL 01/22/2022 6:01 PM [facility] nRBC Auto 0.0 0 /100 WBC 01/22/2022 6:01 PM [facility] Neutrophils % 65.0 35.0 - 70.0 % 01/22/2022 6:01 PM [facility] Lymphocytes % 24.2 20.0 - 43.0 % 01/22/2022 6:01 PM [facility] Monocytes % 9.4 5.0 - 13.0 % 01/22/2022 6:01 PM [facility] Eosinophils % 0.7 0.0 - 6.0 % 01/22/2022 6:01 PM [facility] Basophil % 0.3 0.0 - 2.0 % 01/22/2022 6:01 PM [facility] Neutrophils Absolute 6.32 1.60 - 7.00 10? 3 /uL 01/22/2022 6:01 PM CDT [facility] Lymphocyte Absolute 2.35 1.10 - 3.90 10? 3 /uL 01/22/2022 6:01 PM CDT [facility] Monocytes Absolute 0.91 0.26 - 1.07 10? 3 /uL 01/22/2022 6:01 PM CDT [facility] Eosinophils Absolute 0.07 0.00 - 0.47 10? 3 /uL 01/22/2022 6:01 PM CDT [facility] Basophils Absolute 0.03 0.00 - 0.08 10? 3 /uL 01/22/2022 6:01 PM CDT [facility] Immature Granulocytes % 0.4 0.0 - 1.0 % 01/22/2022 6:01 PM CDT [facility] Immature Granulocytes Absolute 0.04 01/22/2022 6:01 PM CDT [facility] Blood BLOOD SPECIMEN / Unknown Venipuncture / Unknown 01/22/2022 5:50 PM CDT 01/22/2022 5:57 PM CDT Lena Martinez MD LAB - HEMATOLOGY ORD ERABLES [facility] [address] [place] [id number], [facility] [phone] * (ABNORMAL) ALCOHOL ETHYL BLOOD (01/22/2022 5:50 PM CDT) Ethanol (mg/dL) 15(H) <10 mg/dL 6:32 PM CDT [facility] Ethanol Calculated (g/dL) 0.015(H) <=0.010 g/dL 01/22/2022 6:32 PM CDT [facility] Blood BLOOD SPECIMEN / Unknown Venipuncture / Unknown 01/22/2022 5:50 PM CDT 01/22/2022 5:57 PM CDT Narrative [facility] - 01/22/2022 6:32 PM CDT Ethanol Interp <10: None Detected. 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: >100 mg/dl Potentially Critical: >250 mg/dl Potentially [...] Martinez MD LAB - CHEMISTRY THERESA COMBS [facility] Organization Address City/State/ZIP Co de Phone Number [facility] [address] [place] [address], [facility] [phone] * (ABNORMAL) URINE DRUG SCREEN IMMUNOASSAY (01/22/2022 5:47 PM CDT) Amphetamines Screen Urine Positive(A) Negative : < 1000 ng/mL 01/22/2022 6:12 PM [facility] Comment: Positive urine amphetamine screening results should be confirmed by another generally accepted non-immunological method such as gas chromatography or mass spectrometry. ? Barbiturates Screen Urine Negative Negative : < 200 ng/mL [facility]2022 6:[facility] Benzodiazepine Screen Urine Negative Negative : < 200 ng/mL 01/22/2022 6:12 PM [facility] Opiates Urine Negative Negative : < 300 ng/mL 01/22/2022 6:12 PM [facility] Cocaine Metabolites Urine Negative Negative : < 300 ng/mL 01/22/2022 6:12 PM [facility] Phencyclidine Screen Urine Negative Negative : < 25 ng/ml 01/22/2022 6:12 PM [facility] Cannabinoids Screen Urine Positive(A) Negative : <50 ng/mL 01/22/2022 6:12 PM [facility] Comment:Positive urine canna binoids (THC) screening results should be confirmed by another generally accepted non-immunological method such as gas chromatography or mass spectrometry. Methadone Screen Urine Negative Negative : < 300 ng/mL 01/22/2022 6:12 PM [facility] Fentanyl Screen Urine Negative Negative : <1.5 ng/mL 01/22/2022 6:12 PM [facility] Urine URINE / Unknown Collection / Unknown 01/22/2022 5:47 PM CDT 01/22/2022 5:48 PM CDT Narrative [facility] - 01/22/2022 6:12 PM CDT The Urine Toxicology Screening Panel does not screen for Propoxyphene, Meprobamate, Carisoprodol, Trazodone, [id number]-zxtuwti medications and/or volatiles (Acetone, Isopropanol, Methanol or Ethylene Glycol). Ethanol, Salicylate, Acetaminophen, Tricyclic Antidepressants and several therapeutic drugs may be individually assayed in serum or plasma specimen. Toxicology testing by the [facility] is an aid to medical diagnosis and treatment of patients. No documented chain of custody was maintained. Results are intended to be used for clinical purposes only. ? Lena Martinez MD LAB - URINE CHEMISTR Y ORDERABLES Performing Organization Address [facility] Co de Phone Number [facility] [address] [place] [phone], [facility] [phone] documented in this encounter Visit Diagnoses Diagnosis Manic episode (HCC) Bipolar I disorder, single manic episode, unspecified Manic episode (HCC) Bipolar I disorder, single manic episode, unspecified documented in this encounter Administered Medications Inactive Administered Medications - up to 3 most recent administrations Medication Order MAR Action Action Date Dose Rate Site clonazePAM (disintegrating) (KlonoPIN Wafer) tablet 1 mg 1 mg, Oral, AT BEDTIME, First dose on 01/24/22 at 2130, Until Discontinued $ Given 01/24/2022 10:29 PM CDT 1 mg haloperidol (Haldol) tablet 5 mg 5 mg, Oral, EVERY 6 HOURS PRN, Agitation, Psychosis, Starting on 01/24/22 at 0728, Until Tue01/25/22 at 1605 haloperidol (Haldol) tablet 5 mg 5 mg, Oral, EVERY 6 HOURS PRN, Agitation, Psychosis, Starting on 01/23/22 at 1218, Until Tue01/24/22 at 0733 $ Given 01/23/2022 8:39 PM CDT 5 mg haloperidol lactate (Haldol) injection 5 mg 5 mg, Intramuscular, NOW, 1 dose, On Tue01/22/22 at 2315 $ Given 01/23/2022 5:28 AM CDT 5 mg Left Arm haloperidol lactate (Haldol) injection 5 mg 5 mg, Intramuscular, NOW, 1 dose, On 01/23/22 at 1145 $ Given 01/23/2022 11:38 AM CDT 5 mg Left Vastus Lateralis haloperidol lactate (Haldol) injection 5 mg 5 mg, Intramuscular, EVERY 6 HOURS PRN, Psychosis, Severe agitation, Starting on 01/24/22 at 0728, Until Tue01/25/22 at 1605 $ Given 01/24/2022 9:18 AM CDT 5 mg Left Vastus Lateralis haloperidol lactate (Haldol) injection 5 mg 5 mg, Intramuscular, EVERY 6 HOURS PRN, severe, nonredirectable agitation, Starting on 01/24/22 at 2046, Until Tue01/25/22 at 1605 LORazepam (Ativan) injection 2 mg 2 mg, Intramuscular, EVERY 6 HOURS PRN, severe, nonredirectable agitation, Starting on 01/24/22 at 2047, Until Tue01/25/22 at 1605 midazolam (Versed) 1 mg/mL injection ADS Med 1 dose, Starting on Tue01/24/22 at 1005, Until Tue01/24/22 at 1241, Created by cabinet override $ Given 01/24/2022 12:41 PM CDT midazolam (Versed) injection 2 mg 2 mg, Intravenous, NOW, 1 dose, On Tue01/22/22 at 2315 $ Given 01/23/2022 5:28 AM CDT 2 mg midazolam (Versed) injection 2 mg 2 mg, Intramuscular, NOW, 1 dose, On 01/23/22 at 1145 $ Given 01/23/2022 11:38 AM CDT 2 mg Left Vastus Lateralis midazolam (Versed) injection 2 mg 2 mg, Intramuscular, NOW, 1 dose, On 01/24/22 at 1015 $ Given 01/24/2022 10:08 AM CDT 2 mg Right Vastus Lateralis risperiDONE (disintegrating) (RisperDAL M) tablet 1 mg 1 mg, Oral, 2 TIMES DAILY, First dose on 01/24/22 at 0900, Until Discontinued $ Given 01/25/2022 9:40 AM CDT 1 mg $ Given 01/24/2022 10:30 PM CDT 1 mg $ Given 01/24/2022 8:12 AM CDT 1 mg risperiDONE (disintegrating) (RisperDAL M) tablet 1 mg 1 mg, Oral, 2 TIMES DAILY, First dose on 01/23/22 at 1300, Until Discontinued $ Given 01/23/2022 8:39 PM CDT 1 mg documented in this encounter Active and Recently Administered Medications Times are shown in CDT. Scheduled Medication Order 01/23/2022 01/24/2022 01/25/2022 clonazePAM (disintegrating) (KlonoPIN Wafer) tablet 1 mg 1 mg, Oral, AT BEDTIME, First dose on 01/24/22 at 2130, Until Discontinued 2229 ($ Given - Provider: Baldomero Ellison RN) haloperidol lactate (Haldol) injection 5 mg (COMPLETED) 5 mg, Intramuscular, NOW, 1 dose, On Tue01/22/22 at 2315 0528 ($ Given - Provider: Travis Hyde RN) haloperidol lactate (Haldol) injection 5 mg (COMPLETED) 5 mg, Intramuscular, NOW, 1 dose, On 01/23/22 at 1145 1138 ($ Given - Provider: Eliot Chopra RN) midazolam (Versed) injection 2 mg (COMPLETED) 2 mg, Intravenous, NOW, 1 dose, On Tue01/22/22 at 2315 0528 ($ Given - Provider: Travis Hyde RN) midazolam (Versed) injection 2 mg (COMPLETED) 2 mg, Intramuscular, NOW, 1 dose, On 01/23/22 at 1145 1138 ($ Given - Provider: Eliot Chopra RN) midazolam (Versed) injection 2 mg (COMPLETED) 2 mg, Intramuscular, NOW, 1 dose, On 01/24/22 at 1015 1008 ($ Given - Provider: Charlie Dillon, SAGAR) nicotine (Nicoderm CQ) patch 14 mg 14 mg, Administer over 24 Hours, DAILY, First dose on 01/24/22 at 0900, Until Discontinued, Remove old patch before applying new patch. . WASTE DISPOSAL INSTRUCTIONS: P-Listed item. Special Disposal Required. . 0759 (Not Administered - Provider: Cierra Liz RN - Reason: Refused-Patient) 0942 (Not Administered - Provider: Leeanna Resendiz, SAGAR - Reason: Refused-Patient) risperiDONE (disintegrating) (RisperDAL M) tablet 1 mg 1 mg, Oral, 2 TIMES DAILY, First dose on 01/24/22 at 0900, Until Discontinued 0812 ($ Given - Provider: Cierra Liz RN)2230 ($ Given - Provider: Baldomero Ellison RN) 0940 ($ Given - Provider: Leeanna Resendiz, SAGAR) risperiDONE (disintegrating) (RisperDAL M) tablet 1 mg (CANCELED) 1 mg, Oral, 2 TIMES DAILY, First dose on 01/23/22 at 1300, Until Discontinued 164 (Not Administered - Provider: Eliot Chopra RN - Reason: Refused-Patient)2038 ($ Given - Provider: Victoria Arias RN) PRN Medication Order 01/23/2022 01/24/2022 01/25/2022 haloperidol (Haldol) tablet 5 mg(Linked Group 1) 5 mg, Oral, EVERY 6 HOURS PRN, Agitation, Psychosis, Starting on 01/24/22 at 0728, Until 01/25/22 at 1605 0918 (See Alternative - Provider: Charlie Dillon, SAGAR) haloperidol (Haldol) tablet 5 mg (CANCELED) 5 mg, Oral, EVERY 6 HOURS PRN, Agitation, Psychosis, Starting on 01/23/22 at 1218, Until 01/24/22 at 0733 2038 ($ Given - Provider: Victoria Arias RN) haloperidol lactate (Haldol) injection 5 mg(Linked Group 1) 5 mg, Intramuscular, EVERY 6 HOURS PRN, Psychosis, Severe agitation, Starting on 01/24/22 at 0728, Until 01/25/22 at 1605 0918 ($ Given - Provider: Charlie Dillon RN) haloperidol lactate (Haldol) injection 5 mg(Linked Group 2) 5 mg, Intramuscular, EVERY 6 HOURS PRN, severe, nonredirectable agitation, Starting on 01/24/22 at 2046, Until 01/25/22 at 1605 LORazepam (Ativan) injection 2 mg(Linked Group 2) 2 mg, Intramuscular, EVERY 6 HOURS PRN, severe, nonredirectable agitation, Starting on 01/24/22 at 2047, Until Tue01/25/22 at 1605 No Frequency Medication Order 01/23/2022 01/24/2022 01/25/2022 midazolam (Versed) 1 mg/mL injection ADS Med (COMPLETED) 1 dose, Starting on 01/24/22 at 1005, Until Tue01/24/22 at 1241, Created by cabinet override 1241 ($ Given - Provider: Charlie Dillon RN - Comment: linked override) Linked Groups Order Group 1: haloperidol (Haldol) tablet 5 mgJump to med 5 mg, Oral, EVERY 6 HOURS PRN, Agitation, Psychosis, Starting on 01/24/22 at 0728, Until Tue01/25/22 at 1605 Or haloperidol lactate (Haldol) injection 5 mgJump to med 5 mg, Intramuscular, EVERY 6 HOURS PRN, Psychosis, Severe agitation, Starting on 01/24/22 at 0728, Until Tue01/25/22 at 1605 Group 2: haloperidol lactate (Haldol) injection 5 mgJump to med 5 mg, Intramuscular, EVERY 6 HOURS PRN, severe, nonredirectable agitation, Starting on 01/24/22 at 2046, Until Tue01/25/22 at 1605 And LORazepam (Ativan) injection 2 mgJump to med 2 mg, Intramuscular, EVERY 6 HOURS PRN, severe, nonredirectable agitation, Starting on 01/24/22 at 2047, Until 01/25/22 at 1605 documented in this encounter
--- OUTSIDE RECORDS SUMMARY | 2024-03-25 18:36 | XMS_ITS | Encounter Summary ---
Author Organization [facility] Address [address] [place] [address]. [place], [place] [address] [place] [address] Care Team Providers Care Medical Scheduler Name Role Phone Antonio Nicholson Primary Care Provider [phone] Reason for Visit * Reason Onset Date Comments Medication Problem 12/15/2020 Encounter Details Date Type Department Care Team (Late st Contact Info) Description 12/15/2020 Telephone [facility] Family & Internal Medicine [facility] [address] [place] [address] Antonio Nicholson FNP [address] [place] [address] Medication Problem Social History Tobacco Use Types Packs/Day Years [...] please move on to questions 3-9 0 12/03/2020 Comments No Sex and Gender Information Value Date Recorded Sex Assigned at Not on file Legal Sex Female 8:44 PM CDT Gender Identity Not on file Sexual Orientation Not on file COVID-19 Exposure Response Date Recorded In the last month, have you been in contact with someone who was confirmed or suspected to have Coronavirus / COVID-19? Unable to assess 12/03/2020 6:39 AM CDT documented as of this encounter Progress Notes * Norma Araujo MA - 12/15/2020 10:25 AM CDT The patient is calling for a refill on: Last fill on Vyvanse 11/14/20, Venlafaxine was filled on 12/03/20 but she lost it. Last visit with ANTONIO NICHOLSON in FAMILY PRACTICE was on: 08/28/2020 in [facility] No future appointments. [id number] - [facility] [address] AT [facility] [address] [facility] [address] Current Outpatient Medications: ??? hydrOXYzine 25 MG tablet, Take 25 mg by mouth 2 (two) times daily as needed., Disp: , Rfl: ??? levonorgestrel (MIRENA, 52 MG,) 20 MCG/24HR IUD, 1 Intra Uterine Device by Intrauterine route once., Disp: , Rfl: ??? lisdexamfetamine 40 MG capsule, Take 1 capsule (40 mg total) by mouth every morning., Disp: 30 capsule, Rfl: 0 ??? Probiotic Product (PROBIOTIC ADVANCED) Cap, , Disp: , Rfl: ??? venlafaxine XR 75 MG 24 hr capsule, Take 1 capsule (75 mg total) by mouth daily., Disp: 90 capsule, Rfl: 3 * Skyla Escobedo - 12/15/2020 9:34 AM CDT Patient came into the office stating that she has lost her venlafaxine medication and needs this refilled. documented in this encounter Plan of Treatment Not on file documented as of this encounter Visit Diagnoses Diagnosis Attention deficit hyperactivity disorder (ADHD), combined type Anxiety Anxiety state, unspecified Moderate episode of recurrent major depressive disorder ([facility]) documented in this encounter Additional Health Concerns Assessment Noted Time PHQ-9 Depression Total Score: 3 09/08/20 21 7:29 AM CDT documented as of this encounter Care Teams Medical Scheduler Relationship Specialty Start Date End Date Antonio Nicholson FNP [address] [place] [address] PCP - General Nurse Practitioner Family 05/04/18 documented as of this encounter
--- OUTSIDE RECORDS SUMMARY | 2024-03-25 18:36 | XMS_ITS | Encounter Summary ---
Author Organization [facility] Address [address] [place] [address]. [place], [place] [address] [place] [address] Care Team Providers Care Liquefier Name Role Phone Cuca Dutton Primary Care Provider [phone] Encounter Details Date Type Department Care Team (Latest Contact Info) Description 04/06/2021 Scan [facility] Scanned, Documents [...] or suspected to have Coronavirus / COVID-19? No / Unsure 04/06/2021 9:58 AM PATTERN DUPLICATOR documented as of this encounter Plan of Treatment Not on file documented as of this encounter Visit Diagnoses Not on filedocumented in this encounter Additional Health Concerns Assessment Noted Time PHQ-9 Depression Total Score: 3 12/04/19 21 7:29 AM CDT documented as of this encounter Care Teams Liquefier Relationship Specialty Start Date End Date Cuca Dutton FNP [address] [place] [address] PCP - General Nurse Practitioner Family 05/04/18 documented as of this encounter
--- OUTSIDE RECORDS SUMMARY | 2024-03-25 18:36 | XMS_ITS | Encounter Summary ---
Author Organization [facility] Address [address] [place] [address]. [place], [place] [address] [place] [address] Care Team Providers Care Ui Software Engineer Name Role Phone Cuca Dutton Primary Care Provider [phone] Reason for Visit * Reason Onset Date Comments Callback 01/19/2022 Encounter Details Date Type Department Care Team (Late st Contact Info) Description 01/19/2022 Telephone [facility] Medical Group Family & Internal Medicine [facility] [address] [place] [phone] Cuca Dutton FNP [address] [place] [address] Callback Social History Tobacco Use Types Packs/Day Years [...] as of this encounter Progress Notes * Joie Tran MA - 02/05/2022 9:46 AM CST FYI- [facility] records requested. 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 We should get records and we will be holding her meds, she will need to f/u with psych for further treatment of her mental health issues. * Shelly Bahena - 01/25/2022 7:36 AM CDT Patients mom called in asking why she has not received a callback. I advised her that she is not hippa authorized. Mom states that is fine, she is not wanting to know any information, she is wanting to pass some information to PCP. Mom said that on 01/22 patient was admitted to [facility] for possibly abusing her Vyvanse. Mom said that her last fill was on 01/17 and she knows that it is a controlled substance and that PCP would have to ok it. Mom is asking from a mother point to review this and possibly not re prescribe her this again. She states that she is currently waiting for a psychic bed right now. * Isela Matos MA - 01/19/2022 1:02 PM CDT Mother not HIPAA Authorized. * Montserrat Herron - 01/19/2022 9:21 AM CDT Patient's mom calling in with questions about vyvanse. Patient's mom has a meeting from 10am to 11am so if we could not callback then documented in this encounter Plan of Treatment Not on file documented as of this encounter Visit Diagnoses Not on filedocumented in this encounter Additional Health Concerns Assessment Noted Time PHQ-9 Depression Total Score: 4 11/24/19 22 11:18 AM CDT documented as of this encounter Care Teams Ui Software Engineer Relationship Specialty Start Date End Date Cuca Dutton FNP [address] [place] [id number] PCP - General Nurse Practitioner Family 05/04/18 documented as of this encounter
--- OUTSIDE RECORDS SUMMARY | 2024-03-25 18:36 | XMS_ITS | Encounter Summary ---
Author Organization [facility] Address [address] [place] [address]. [place], [place] [address] [place] [address] Care Team Providers Care Front End Specialist Name Role Phone Antonio Nicholson Primary Care Provider [phone] Reason for Visit * Reason Onset Date Comments Refill Request 11/10/2020 Encounter Details Date Type Department Care Team (Late st Contact Info) Description 11/10/2020 Telephone [facility] Medical Group Family & Internal Medicine [facility] [address] [place] [address] Antonio Nicholson FNP [address] [place] [address] Refill Request Social History Tobacco Use Types Packs/Day Years [...] 3, please move on to questions 3-9 4 05/19/2020 Comments No Sex and Gender Information Value Date Recorded Sex Assigned at Not on file Legal Sex Female 8:44 PM CDT Gender Identity Not on file Sexual Orientation Not on file documented as of this encounter Progress Notes * Faizan Osuna MD - 11/10/2020 2:59 PM CDT We will not refill this medication until it is the appropriate time according to her prescription dates. * Emily Eason MA - 11/10/2020 2:52 PM CDT Refill request received from Pharmacy. Patient is due for vyvanse refill on Tuesday. She was in [place] and her family was kicked out of the hotel they were staying in and her medicine was lost. Sheis requesting an early fill. I advised patient that this may not be possible due to office policy but that I would send a message. Last visit with ANTONIO NICHOLSON in FAMILY PRACTICE was on: 08/28/2020 in [facility] No future appointments. [employer] [facility] #[id number] - [facility] [address] [facility] [phone] Current Outpatient Medications: ??? fluconazole 150 MG tablet, Take one tablet now and you may repeat one tablet 72 hours for continued symptoms, Disp: 2 tablet, Rfl: 1 ??? hydrOXYzine 25 MG tablet, Take 25 [...] , Disp: , Rfl: ??? venlafaxine XR 150 MG 24 hr capsule, Take 1 capsule (150 mg total) by mouth daily., Disp: 90 capsule, Rfl: 3 documented in this encounter Plan of Treatment Not on file documented as of this encounter Visit Diagnoses Not on filedocumented in this encounter Additional Health Concerns Assessment Noted Time PHQ-9 Depression Total Score: 13 021 10:36 AM IT SECURITY CONSULTANT documented as of this encounter Care Teams Front End Specialist Relationship Specialty Start Date End Date Antonio Nicholson FNP [address] [place] [id number] PCP - General Nurse Practitioner Family 05/04/18 documented as of this encounter
--- OUTSIDE RECORDS SUMMARY | 2024-03-25 18:36 | XMS_ITS | Encounter Summary ---
Author Organization [facility] Address [address] [place] [address]. [place], [place] [address] [place] [address] Care Team Providers Care Pelota Maker Name Role Phone Cuca Dutton Primary Care Provider [phone] Encounter Details Date Type Department Care Team (Latest Contact Info) Description 11/23/2021 Travel Social History Tobacco Use Types Packs/Day Years [...] AM CDT documented as of this encounter Plan of Treatment Not on file documented as of this encounter Visit Diagnoses Not on filedocumented in this encounter Additional Health Concerns Assessment Noted Time PHQ-9 Depression Total Score: 4 11/24/19 22 11:18 AM CDT documented as of this encounter Care Teams Pelota Maker Relationship Specialty Start Date End Date Cuca Dutton FNP [address] [place] [address] PCP - General Nurse Practitioner Family 05/04/18 documented as of this encounter
--- OUTSIDE RECORDS SUMMARY | 2024-03-25 18:36 | XMS_ITS | Encounter Summary ---
Author Organization [facility] Address [address] [place] [address]. [place], [place] [address] [place] [address] Care Team Providers Care Matte Cutter Name Role Phone Cuca Dutton Primary Care Provider [phone] Reason for Visit * Reason Onset Date Comments Vaginal Problem 09/22/2020 Encounter Details Date Type Department Care Team (Late st Contact Info) Description 09/22/2020 Telephone [facility] Family & Internal Medicine [facility] [address] [place] [address] Cuca Dutton FNP [address] [place] [address] Vaginal Problem Social History Tobacco Use Types Packs/Day [...] have Coronavirus / COVID-19? No / Unsure 09/18/2020 1:40 PM CDT documented as of this encounter Progress Notes * Merline Lau RN - 09/22/2020 5:27 PM CDT Patient notified. Prescription sent out. LL-09/22/20 * CAROLYN Martin - 09/22/2020 2:30 PM CDT Fluconazole 150 mg take one tablet now and may repeat in 72 hours dsp 2 * Skyla Escobedo - 09/22/2020 1:27 PM CDT Patient called in stating that she went floating this weekend and now she has a yeast infection. She stated that her symptoms are white discharge and itching. She is asking for two tablets. Pharmacy: [facility] documented in this encounter Plan of Treatment Not on file documented as of this encounter Visit Diagnoses Diagnosis Vaginal yeast infection- Primary Candidiasis of vulva and vagina documented in this encounter Additional Health Concerns Assessment Noted Time PHQ-9 Depression Total Score: 13 05/19/ 021 10:36 AM MANAGER MACHINE documented as of this encounter Care Teams Matte Cutter Relationship Specialty Start Date End Date Cuca Dutton FNP [address] [place] [address] PCP - General Nurse Practitioner Family 05/04/18 documented as of this encounter
--- OUTSIDE RECORDS SUMMARY | 2024-03-25 18:36 | XMS_ITS | Encounter Summary ---
Author Organization [facility] Address [address] [place] [address]. [place], [place] [address] [place] [address] Care Team Providers Care Spindle Tester Name Role Phone Cuca Dutton Primary Care Provider [phone] Reason for Visit * Reason Onset Date Comments Medication Request 04/16/2020 Encounter Details Date Type Department Care Team (Late st Contact Info) Description 04/16/2020 Telephone [facility] Family & Internal Medicine [facility] [address] [place] [address] Cuca Dutton FNP [address] [place] [address] Medication Request Social History Tobacco Use Types Packs/Day [...] as of this encounter Progress Notes * Isela Matos MA - 04/16/2020 11:45 AM CST Patient informed and v/u. rx sent to pharmacy. C BOX MECHANIC * CAROLYN Martin - 04/16/2020 11:25 AM CST Okay to fill nightly for 7 nights C BOX MECHANIC * Lydia Gonzalez RRT - 04/16/2020 10:53 AM CST Pt is requesting metroNIDAZOLE (METROGEL VAGINAL) 0.75 % vaginal gel For bacterial vaginosis. She has taken for this in the past. [facility] C BOX MECHANIC documented in this encounter Plan of Treatment Not on file documented as of this encounter Visit Diagnoses Diagnosis Vaginal odor- Primary Unspecified symptom associated with female genital organs documented in this encounter Care Teams Spindle Tester Relationship Specialty Start Date End Date Cuca Duttno FNP [address] [place] [address] PCP - General Nurse Practitioner Family 05/04/18 documented as of this encounter
--- OUTSIDE RECORDS SUMMARY | 2024-03-25 18:36 | XMS_ITS | Encounter Summary ---
Author Organization [facility] Address [address] [place] [address]. [place], [place] [address] [place] [address] Care Team Providers Care Die Keeper Name Role Phone Cuca Dutton Primary Care Provider [phone] Encounter Details Date Type Department Care Team (Latest Contact Info) Description 07/29/2023 Travel Social History Tobacco Use Types Packs/Day [...] Total Score: 8 05/31/19 24 10:12 AM ISSUING OPERATOR documented as of this encounter Care Teams Die Keeper Relationship Specialty Start Date End Date Cuca Dutton FNP [address] [place] [address] PCP - General Nurse Practitioner Family 05/04/18 documented as of this encounter
--- OUTSIDE RECORDS SUMMARY | 2024-03-25 18:36 | XMS_ITS | Encounter Summary ---
Author Organization [facility] Address [address] [place] [address]. [place], [place] [address] [place] [address] Care Team Providers Care Learning Officer Name Role Phone Cuca uDtton Primary Care Provider [phone] Reason for Visit * Reason Onset Date Comments UTI 11/18/2023 Encounter Details Date Type Department Care Team (Late st Contact Info) Description 11/18/2023 Telephone [facility] Family & Internal Medicine [facility] [address] [place] [address] Cuca Dutton FNP [address] [place], [place] [phone] UTI Social History Tobacco Use Types Packs/Day Years [...] Progress Notes * Isela Matos MA - 11/18/2023 2:58 PM CDT Rx sent to pharmacy. 11/18/2023 2:58 PM * Bettie Butt - 11/18/2023 1:26 PM CDT Patient is unable to come in today as she works until 4pm. Patient is good with the macrobid being sent in for her. * CAROLYN Martin - 11/18/2023 11:33 AM CDT If she can give a UA, that would be advisable. Otherwise, we can send macrobid 100 mg bid x7d * Bettie Butt - 11/18/2023 7:01 AM CDT The patient has the following symptom(s): Burning while urinating, peeing every 5 seconds, and stomach is hurting Symptom(s) Started: 4 days ago OTC Medications tried: none Have you been seen with-in the past 30 days for these same symptoms? Yes. If so, where? Home Covid test: Call back #: [phone] Allergies: Allergies Allergen Reactions Sulfa Antibiotics Hives Sulfamethoxazole-Trimethoprim Unknown Pharmacy: [facility] documented in this encounter Plan of Treatment Not on file documented as of this encounter Visit Diagnoses Diagnosis Dysuria- Primary documented in this encounter Additional Health Concerns Assessment Noted Time PHQ-9 Depression Total Score: 8 05/31/19 24 10:12 AM SHANK CEMENTER HAND documented as of this encounter Care Teams Learning Officer Relationship Specialty Start Date End Date Cuca Dutton FNP [address] [place] [address] PCP - General Nurse Practitioner Family 05/04/18 documented as of this encounter
--- OUTSIDE RECORDS SUMMARY | 2024-03-25 18:36 | XMS_ITS | Encounter Summary ---
Author Organization [facility] Address [address] [place] [address]. [place], [place] [address] [place] [address] Care Team Providers Care Tassel Making Machine Operator Name Role Phone Cuca Dutton Primary Care Provider [phone] Reason for Visit * Reason Comments Attention Deficit Hyperactivity Disorder follow up on medication Encounter Details Date Type Department Care Team (Latest Contact Info) Description 02/04/2021 8:40 AM ENRICHMENT SPECIALIST Telemedicine [facility] Family & Internal Medicine - [place] [address] [place] [address] Cuca Dutton FNP [address] [place] [address] Attention Deficit Hyperactivity Disorder (follow up on medication) Social History Tobacco Use Types Packs/Day [...] have Coronavirus / COVID-19? Unable to assess 02/04/2021 6:25 AM ENRICHMENT SPECIALIST documented as of this encounter Patient Instructions * Patient Instructions* CAROLYN Martin - 02/04/2021 8:40 AM ENRICHMENT SPECIALIST Start taking increased dose of Vyvanse and call for any issues or concerns Continue your mental health counseling and your venlafaxine as long as you are having anxiety and depression symptoms. If you would like to go off of the Venlafaxine, go to taking this every other day and then slowly remove a dose a week, as we discussed. Call for any questions or concerns Follow up in, at least , 3 months or sooner if needed. CHMENT SPECIALIST documented in this encounter Progress Notes * CAROLYN Martin - 02/04/2021 8:40 AM CSTSummary: ADHD, anxiety and depression f/u Office Progress Note Reason for Visit: Attention Deficit Hyperactivity Disorder (follow up on medication) I introduced and identified myself, received verbal consent from the patient to proceed with this video visit and made the patient aware that the same confidentiality and information technology data analyst practices apply. The patient joined the video visit from Home. I completed the virtual visit from Home. Thefollowing clinical staff helped with this visit MA: janel rodriguez. Total Time Spent in Minutes: 10 History of Present Illness: Stephanie presents via virtual visit for f/u of her ADHD. ADHD- She feels like the Vyvanse needs to be increased, as her focus is not as good as it has been in thepast ( when she first started taking the medication). She denies any side effects from this medication. Depression and anxiety- She is going to a counselor for her mental health issues and this has helped. She reports that she does not even know if the Venlafaxine is working and she would really like to come off of this medication. We discussed that this medication requires a slow wean but I advised her that I felt like sheneeds to continue this medication if she has been having some depression symptoms. She denies any SI or HI presently. ROS: Review of Systems Constitutional: Negative for chills, diaphoresis, fever, malaise/fatigue and weight loss. HENT: Negative for congestion, ear discharge, ear pain, hearing loss, nosebleeds, sinus pain, sore throat [...] Prior to Visit Medication Sig ??? levonorgestrel (MIRENA, 52 MG,) 20 MCG/24HR IUD 1 Intra Uterine Device by Intrauterine route once. ??? Probiotic Product (PROBIOTIC ADVANCED) Cap ??? venlafaxine XR 75 MG 24 hr capsule Take 1 [...] on file Tobacco Use ??? Smoking status: Never Smoker ??? Smokeless tobacco: Never Used Vaping Use ??? Vaping Use: Every day ??? Substances: Nicotine, Flavoring ??? Devices: Pre-filled or refillable cartridge, Refillable tank Substance and Sexual Activity ??? Alcohol use: Yes Comment: social ??? Drug use: Yes Types: Marijuana ??? Sexual activity: Never control/protection: Inserts Other Topics Concern ??? Not on file Social History Narrative ??? Not on file Social Determinants of Health Financial Resource Strain: Not on file Food Insecurity: Not on file Transportation Needs: Not on file Physical Activity: Not on file Stress: Not on file Social Connections: Not on file Intimate Partner Violence: Not on file Family History: Family History Problem Relation Name Age of Onset ??? No Known Problems Mother ??? No Known Problems Father ??? Diabetes Maternal Grandfather PE: Physical Exam Constitutional: General: She is not in acute distress. Appearance: Normal appearance. She is well-developed, well-groomed and normal weight. She is not ill-appearing, toxic-appearing or diaphoretic. Interventions: She is not intubated. HENT: Head: Normocephalic and atraumatic. Right Ear: Hearing and external ear normal. Left Ear: Hearing and external ear normal. Nose: Nose normal. Eyes: General: Lids are normal. Vision grossly intact. Gaze aligned appropriately. Conjunctiva/sclera: Conjunctivae normal. Pulmonary: Effort: Pulmonary effort is normal. No tachypnea, bradypnea, accessory muscle usage, prolonged expiration, respiratory distress or retractions. She is not intubated. Musculoskeletal: Cervical back: Full passive range of motion without pain and normal range of motion. Neurological: Mental Status: She is alert and oriented to person, place, and time. Psychiatric: Attention and Perception: Attention and perception normal. Mood and Affect: Mood and affect normal. Speech: Speech normal. Behavior: Behavior normal. Behavior is cooperative. Thought Content: Thought content normal. Cognition and Memory: Cognition and memory normal. Judgment: Judgment normal. There were no vitals filed for this visit. Unable to take vitals at home. Diagnoses/Impression: 1. Attention deficit hyperactivity disorder (ADHD), combined type lisdexamfetamine (VYVANSE) 50 MG capsule 2. Moderate episode of recurrent major depressive disorder (CMS/HCC) 3. Anxiety Recommendations and Plan: 1. Attention deficit hyperactivity disorder (ADHD), combined type - lisdexamfetamine (VYVANSE) 50 MG capsule; Take 1 capsule (50 mg total) by mouth every morning. Dispense: 30 capsule; Refill: 0 -advised to start taking increased dose of Vyvanse and to call for any issues or concerns with thismedication change. - routine, 3 month f/u advised, sooner if needed 2. Moderate episode of recurrent major depressive disorder ([facility]) - we discussed continuing her Venlafaxine daily but if she feels like she wants to come - we discussed continuing her Venlafaxine daily but if she feels like she wants to come off of this medication,she has to wean herself slowly off of it. - advised to continue mental health counseling as scheduled and call or return if her symptoms worsen or she develops new symptoms. of this medication, she has to wean herself slowly off of it. - advised to continue mental health counseling as scheduled and call or return if her symptoms worsen or she develops new symptoms. 3. Anxiety - we discussed continuing her Venlafaxine daily but if she feels like she wants to come off of thismedication, she has to wean herself slowly off of it. - advised to continue mental health counseling as scheduled and call or return if her symptoms worsen or she develops new symptoms. Orders Placed This Encounter ??? lisdexamfetamine (VYVANSE) 50 MG capsule Cannot display discharge medications since this is not an admission. PCP: CAROLYN VALENZUELA 02/04/2021 CHMENT SPECIALIST documented in this encounter Plan of Treatment Not on file documented as of this encounter Visit Diagnoses Diagnosis Attention deficit hyperactivity disorder (ADHD), combined type- Primary Moderate episode of recurrent major depressive disorder ([facility]/HCC [facility]) Anxiety Anxiety state, unspecified documented in this encounter Additional Health Concerns Assessment Noted Time PHQ-9 Depression Total Score: 3 12/04/19 21 7:29 AM CDT documented as of this encounter Care Teams Tassel Making Machine Operator Relationship Specialty Start Date End Date Cuca Dutton FNP [address] [place] [address] PCP - General Nurse Practitioner Family 05/04/18 documented as of this encounter
--- OUTSIDE RECORDS SUMMARY | 2024-03-25 18:36 | XMS_ITS | Encounter Summary ---
Author Organization [facility] Address [address] [place] [address]. [place], [place] [address] [place] [address] Care Team Providers Care Resident Service Coordinator Name Role Phone Cuca Dutton Primary Care Provider [phone] Reason for Visit * Reason Onset Date Comments Other 03/16/2021 Encounter Details Date Type Department Care Team (Late st Contact Info) Description 03/16/2021 Telephone [facility] Family & Internal Medicine [place] [id number] [place] [address] Cuca Dutton FNP [address] [place] [address] Other Social History Tobacco Use Types Packs/Day Years [...] as of this encounter Progress Notes * Laure Kelley MA - 03/16/2021 11:57 AM CST Last seen 02/04/21 telemed Last dispensed 02/04/21 A MARKETING MANAGER * Lynette Patel - 03/16/2021 8:35 AM CST Refill vyvanse, 50 mg -lisdexamfetamine Pharmacy [facility] A MARKETING MANAGER documented in this encounter Plan of Treatment Not on file documented as of this encounter Visit Diagnoses Diagnosis Attention deficit hyperactivity disorder (ADHD), combined type documented in this encounter Additional Health Concerns Assessment Noted Time PHQ-9 Depression Total Score: 3 12/04/19 21 7:29 AM CDT documented as of this encounter Care Teams Resident Service Coordinator Relationship Specialty Start Date End Date Cuca Dutton FNP [address] [place] [address] PCP - General Nurse Practitioner Family 05/04/18 documented as of this encounter
--- OUTSIDE RECORDS SUMMARY | 2024-03-25 18:36 | XMS_ITS | Encounter Summary ---
Author Organization [facility] Address [address] [place] [address]. [place], [place] [address] [place] [address] Care Team Providers Care Typing Teacher Name Role Phone Cuca Dutton Primary Care Provider [phone] Encounter Details Date Type Department Care Team (Latest Contact Info) Description 07/29/2023 Scan [facility] Scanned, Doc Med Group Social History Tobacco Use Types Packs/Day Years [...] Total Score: 8 05/31/19 24 10:12 AM VP RESPIRATORY documented as of this encounter Care Teams Typing Teacher Relationship Specialty Start Date End Date Cuca Dutton FNP [address] [place] [address] PCP - General Nurse Practitioner Family 05/04/18 documented as of this encounter
--- OUTSIDE RECORDS SUMMARY | 2024-03-25 18:36 | XMS_ITS | Encounter Summary ---
Author Organization [facility] Address [address] [place] [address]. [place], [place] [address] [place] [address] Care Team Providers Care Complaint Specialist Name Role Phone Cuca Dutton Primary Care Provider [phone] Reason for Visit * Reason Onset Date Comments Lab Results 06/02/2023 Encounter Details Date Type Department Care Team (Late st Contact Info) Description 06/02/2023 Telephone [facility] Group Family & Internal Medicine [facility] [address] [place] [address] Cuca Dutton FNP [address] [place] [address] Lab Results Social History Tobacco Use Types Packs/Day Years [...] Progress Notes * Norma Araujo MA - 06/03/2023 8:24 AM CST Patient informed and voiced understanding tn RESELLER * Norma Araujo MA - 06/02/2023 3:35 PM CST ----- Message from CAROLYN Martin sent at 06/02/2023 3:20 PM EBAY RESELLER ----- Her labs show that she should continue taking a vitamin D supplement daily and a multiple vitamin Her other labs look good RESELLER documented in this encounter Plan of Treatment Not on file documented as of this encounter Visit Diagnoses Not on filedocumented in this encounter Additional Health Concerns Assessment Noted Time PHQ-9 Depression Total Score: 8 05/31/19 24 10:12 AM EBAY RESELLER documented as of this encounter Care Teams Complaint Specialist Relationship Specialty Start Date End Date Cuca Dutton FNP [address] [place] [address] PCP - General Nurse Practitioner Family 05/04/18 documented as of this encounter
--- OUTSIDE RECORDS SUMMARY | 2024-03-25 18:36 | XMS_ITS | Encounter Summary ---
Author Organization [facility] Address [address] [place] [address]. [place], [place] [address] [place] [address] Care Team Providers Care Grip Boss Name Role Phone Cuca Dutton Primary Care Provider [phone] Encounter Details Date Type Department Care Team (Latest Contact Info) Description 09/02/2020 Travel Social History Tobacco Use Types Packs/Day [...] have Coronavirus / COVID-19? No / Unsure 09/02/2020 9:37 AM CDT documented as of this encounter Plan of Treatment Not on file documented as of this encounter Visit Diagnoses Not on filedocumented in this encounter Additional Health Concerns Assessment Noted Time PHQ-9 Depression Total Score: 13 021 10:36 AM PAPER MILL SUPERINTENDENT documented as of this encounter Care Teams Grip Boss Relationship Specialty Start Date End Date Cuca Dutton FNP [address] [place] [address] PCP - General Nurse Practitioner Family 05/04/18 documented as of this encounter
--- OUTSIDE RECORDS SUMMARY | 2024-03-25 18:36 | XMS_ITS | Encounter Summary ---
Author Organization [facility] Address [address] [place] [address]. [place], [place] [address] [place] [address] Care Team Providers Care Deputy Sheriff Generalist Name Role Phone Cuca Dutton CAROLYN Primary Care Provider [phone] Reason for Visit * Reason Comments Allied Health Visit TB read Encounter Details Date Type Department Care Team (Latest Contact Info) Description 09/05/2020 9:00 AM CDT Allied Health/Nurse Visit [facility] Medical Group Family & Internal Medicine [address] [phone] Allied Health Visit (TB read) Social History Tobacco Use Types Packs/Day Years [...] have Coronavirus / COVID-19? No / Unsure 09/05/2020 8:42 AM CDT documented as of this encounter Progress Notes * Isela Matos MA - 09/05/2020 9:00 AM CDT TB test negative documented in this encounter Plan of Treatment Not on file documented as of this encounter Visit Diagnoses Diagnosis Screening for tuberculosis- Primary Screening examination for pulmonary tuberculosis documented in this encounter Additional Health Concerns Assessment Noted Time PHQ-9 Depression Total Score: 13 021 10:36 AM POLE CUTTER documented as of this encounter Care Teams Deputy Sheriff Generalist Relationship Specialty Start Date End Date Cuca Dutton FNP [address] [place] [address] PCP - General Nurse Practitioner Family 05/04/18 documented as of this encounter
--- OUTSIDE RECORDS SUMMARY | 2024-03-25 18:36 | XMS_ITS | Encounter Summary ---
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 GLUCOSE (U) NEGATIVE NEGATIVE MG/DL [facility] BILIRUBIN (U) NEGATIVE NEGATIVE [facility] KETONES MG/DL (U) NEGATIVE NEGATIVE MG/DL [facility] SPECIFIC GRAVITY (U) 1.025 1.001 - 1.035 [facility] BLOOD (U) NEGATIVE NEGATIVE [facility] U PH 7.0 5.0 - 9.0 [facility] PROTEIN (U) NEGATIVE NEGATIVE mg/dL [facility] UROBILINOGEN 0.2 0.2 - 1.0 EU/dL = mg/dL [facility] NITRITES NEGATIVE NEGATIVE MG/DL [facility] LEUKOCYTES (U) NEGATIVE NEGATIVE [facility] URINE SPECIMEN OBTAINED BY CLEAN CATCH PROCEDURE / Unknown 05/31/2023 Cuca LEON [place] [address], documented in this encounter Visit Diagnoses Diagnosis Class 2 drug-induced obesity with serious comorbidity and body mass index (BMI) of 35.0 to 35.9 in adult- Primary Abnormal urine odor Other nonspecific finding on examination of urine Vitamin D deficiency Unspecified vitamin D deficiency Bipolar disorder, in partial remission, most recent episode mixed ([facility]) Bipolar I disorder, most recent episode (or current) mixed, in partial or unspecified remission Metabolic disorder Unspecified disorder of metabolism Need for immunization against influenza Need for prophylactic vaccination and inoculation against influenza Need for eakwyvocdd-vpdjszb-hgxquinol (Tdap) vaccine Need for prophylactic vaccination with combined dfowgmtwah-pmfzinn-jwkbkckhl (DTP) vaccine Abnormal findings on microbiological examination of urine Other nonspecific finding on examination of urine documented in this encounter Additional Health Concerns Assessment Noted Time PHQ-9 Depression Total Score: 8 05/31/19 24 10:12 AM CYBER DEFENSE ANALYST documented as of this encounter Care Teams Wireline Field Operator Relationship Specialty Start Date End Date Cuca Dutton FNP [address] [place] [address] PCP - General Nurse Practitioner Family 05/04/18 documented as of this encounter
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
--- OUTSIDE RECORDS SUMMARY | 2024-03-25 18:36 | XMS_ITS | Encounter Summary ---
Author Organization [facility] Address [address] [place] [address]. [place], [place] [id number] [place] [address] Care Team Providers Care Physical Chemist Name Role Phone Cuca Dutton Primary Care Provider [phone] Reason for Visit * Reason Onset Date Comments Medication Problem 06/06/2023 Encounter Details Date Type Department Care Team (Late st Contact Info) Description 06/06/2023 Telephone [facility] Medical Group Family & Internal Medicine [facility] [address] [place] [address] Cuca Dutton FNP [address] [place] [address] Medication Problem Social History Tobacco [...] as of this encounter Progress Notes * Kristi Bui - 06/06/2023 10:03 AM CDT Pts mother called in stating pharmacy informed them needing Prior authorization for Rx. * Bettie Butt - 06/06/2023 8:07 AM CDT Patient had a message from the pharmacy that the ICD10 code was not on the script for Zepbound. documented in this encounter Plan of Treatment Not on file documented as of this encounter Visit Diagnoses Not on filedocumented in this encounter Additional Health Concerns Assessment Noted Time PHQ-9 Depression Total Score: 8 05/31/19 24 10:12 AM CARD SELLER documented as of this encounter Care Teams Physical Chemist Relationship Specialty Start Date End Date Cuca Dutton FNP [address] [place] [address] PCP - General Nurse Practitioner Family 05/04/18 documented as of this encounter
--- OUTSIDE RECORDS SUMMARY | 2024-03-25 18:36 | XMS_ITS | Encounter Summary ---
Author Organization [facility] Address [address] [place] [address]. [place], [place] [id number] [place] [address] Care Team Providers Care Sandwich Maker Name Role Phone Cuca Dutton Primary Care Provider [phone] Reason for Visit * Reason Onset Date Comments Medication Request 07/15/2021 Encounter Details Date Type Department Care Team (Late st Contact Info) Description 07/15/2021 Telephone [facility] Medical Group Family & Internal Medicine [facility] [address] [place] [address] Cuca Dutton FNP [address] [place] [address] Medication Request Social History Tobacco [...] as of this encounter Progress Notes * Emily Eason MA - 07/16/2021 9:50 AM CDT Patient notified and v/u , rx pended * CAROLYN Martin - 07/16/2021 9:41 AM CDT We can start her on 30 mg of vyvanse daily. * Jenny Guerra - 07/15/2021 2:33 PM CDTSummary: med request Patient states she used to take Vyvanse 50mg tabs. She said she quit taking it a few months ago, and now everything is really bad. She said she is depressed, and she can't concentrate. She would liketo go back on it, and asked if Cuca would call it in to her pharmacy- [facility] in [place]. If there are any concerns, please call and let her know. [phone] documented in this encounter Plan of Treatment Not on file documented as of this encounter Visit Diagnoses Diagnosis Attention deficit hyperactivity disorder (ADHD), combined type- Primary documented in this encounter Additional Health Concerns Assessment Noted Time PHQ-9 Depression Total Score: 3 12/04/19 21 7:29 AM CDT documented as of this encounter Care Teams Sandwich Maker Relationship Specialty Start Date End Date Ccua Dutton FNP [address] [place] [address] PCP - General Nurse Practitioner Family 05/04/18 documented as of this encounter
--- OUTSIDE RECORDS SUMMARY | 2024-03-25 18:36 | XMS_ITS | Encounter Summary ---
Author Organization [facility] Address [address] [place] [address]. [place], [place] [id number] [place] [address] Care Team Providers Care Housekeeping Room Inspector Name Role Phone Cuca Dutton Primary Care Provider [phone] Encounter Details Date Type Department Care Team (Latest Contact Info) Description 09/10/2020 Travel Social History Tobacco Use Types Packs/Day [...] have Coronavirus / COVID-19? 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
--- OUTSIDE RECORDS SUMMARY | 2024-03-25 18:36 | XMS_ITS | Encounter Summary ---
Author Organization [facility] Address [address] [place] [address]. [place], [place] [address] [place] [address] Care Team Providers Care Antique Furniture Restorer Name Role Phone Cuca Dutton Primary Care Provider [phone] Reason for Visit * Reason Comments Attention Deficit Hyperactivity Disorder f/u on Vyvanse Encounter Details Date Type Department Care Team (Latest Contact Info) Description 10/15/2020 10:20 AM CDT Telemedicine [facility] Medical Group Family & Internal Medicine [place] [address] [place] [address] Cuca Dutton FNP [facility][note 3][address], [place] [id number] Attention Deficit Hyperactivity Disorder (f/u on Vyvanse) Social History Tobacco Use Types Packs/Day Years [...] PM CDT documented as of this encounter Patient Instructions * Patient Instructions* CAROLYN Martin - 10/15/2020 10:20 AM CDT Continue your medications as directed and prescribed. Call for any issues or concerns Follow up at least every 6 months or sooner if needed. documented in this encounter Progress Notes * CAROLYN Martin - 10/15/2020 10:20 AM CDTSummary: ADHD f/u Office Progress Note Reason for Visit: Attention Deficit Hyperactivity Disorder (f/u on Vyvanse) I introduced and identified myself, received verbal consent from the patient to proceed with this video visit and made the patient aware that the same confidentiality and computer information systems professor practices apply. The patient joined the video visit from Home. I completed the virtual visit from Home. [facility] helped with this visit MA: Norma Araujo. Total Time Spent in Minutes: 15 History of Present Illness: Stephanie presents via virtual visit for f/u of her ADHD. ADHD- She was started on Vyvanse about one month ago for her ADHD symptoms and she reports that the medication has worked for her but it seems to be wearing off early in the day. She ended up taking 2 of the capsules (40mg) at a time and this worked well for her with no reported side effects. Anxiety and depression- She is taking Effexor with no reported issues or side effects. She denies any SI or HI presently. She would like to continue this medication. Vaginal yeast infection- She reports that she feels like she has another yeast infection with irritating vaginal discharge. She reports that she is sexually active but they use a condom and she does not use harsh soaps or vaginal irritants. She denies any odor to the discharge. ROS: Review of Systems Constitutional: Negative for [...] dysuria, flank pain, frequency, hematuria and urgency. Vaginal discharge Musculoskeletal: Negative for back pain, falls, joint [...] File Prior to Visit Medication Sig ??? hydrOXYzine 25 MG tablet Take 25 mg by mouth 2 (two) times daily as needed. ??? levonorgestrel (MIRENA, 52 MG,) 20 MCG/24HR IUD 1 Intra Uterine Device by Intrauterine route once. ??? Probiotic Product (PROBIOTIC ADVANCED) Cap No current facility-administered medications on file prior [...] Never Smoker ??? Smokeless tobacco: Never Used Substance and Sexual Activity ??? Alcohol use: Yes Comment: social ??? Drug use: Yes Types: Marijuana ??? Sexual activity: Never control/protection: Inserts Other Topics Concern ??? Not on file Social History Narrative ??? Not on file Social Determinants of Health Financial Resource Strain: ??? Difficulty of Paying Living Expenses: Food Insecurity: ??? Worried About Running Out of Food in the Last Year: ??? Ran Out of Food in the Last Year: Transportation Needs: ??? Lack of Transportation (Medical): ??? Lack of Transportation (Non-Medical): Physical Activity: ??? Days of Exercise per Week: ??? Minutes of Exercise per Session: Stress: ??? Feeling of Stress : Social Connections: ??? Frequency of Communication with Friends and Family: ??? Frequency of Social Gatherings with Friends and Family: ??? Attends Restoration Services: ??? Active Member of Clubs or Organizations: ??? Attends Club or Organization Meetings: ??? Marital Status: Intimate Partner Violence: ??? Fear of Current or Ex-Partner: ??? Emotionally Abused: ??? Physically Abused: ??? Sexually Abused: Family History: Family History Problem Relation Name Age of Onset ??? No Known Problems Mother ??? No Known Problems Father ??? Diabetes Maternal Grandfather PE: Physical Exam Constitutional: She is oriented to person, place, and time. She appears well- developed and well-nourished. She is cooperative. She does not have a sickly appearance. She does not appear ill. No distress. HENT: Head: Normocephalic and atraumatic. Right Ear: Hearing and external ear normal. Left Ear: Hearing and external ear normal. Nose: Nose normal. Mouth/Throat: Mucous membranes are normal. Eyes: Conjunctivae, EOM and lids are normal. Pulmonary/Chest: Effort normal. No accessory muscle usage. No respiratory distress. Musculoskeletal: Cervical back: Full passive range of motion without pain and normal range of motion. Neurological: She is alert and oriented to person, place, and time. Skin: Skin is intact. Psychiatric: She has a normal mood and affect. Her speech is normal and behavior is normal. Judgment and thought content normal. Cognition and memory are normal. There were no vitals filed for this visit. Diagnoses/Impression: 1. Attention deficit hyperactivity disorder (ADHD), combined type lisdexamfetamine 40 MG capsule 2. Anxiety venlafaxine XR 150 MG 24 hr capsule 3. Moderate episode of recurrent major depressive disorder (CMS/HCC) venlafaxine XR 150 MG 24 hr capsule 4. Vaginal yeast infection fluconazole 150 MG tablet Recommendations and Plan: 1. Attention deficit hyperactivity disorder (ADHD), combined type - lisdexamfetamine 40 MG capsule; Take 1 capsule (40 mg total) by mouth every morning. Dispense: 30capsule; Refill: 0 - she was advised to continue medication as directed and prescribed. She will call for any issues or concerns with her medications. - discussed routine, 6 month follow up, sooner if needed. 2. Anxiety - venlafaxine XR 150 MG 24 hr capsule; Take 1 capsule (150 mg total) by mouth daily. Dispense: 90 capsule; Refill: 3 - she was advised to continue medication as directed and prescribed. She will call for any issues or concerns with her medications. - discussed routine, 6 month follow up, sooner if needed. 3. Moderate episode of recurrent major depressive disorder (CMS/HCC) - venlafaxine XR 150 MG 24 hr capsule; Take 1 capsule (150 mg total) by mouth daily. Dispense: 90 capsule; Refill: 3 - she was advised to continue medication as directed and prescribed. She will call for any issues or concerns with her medications. - discussed routine, 6 month follow up, sooner if needed. 4. Vaginal yeast infection - fluconazole 150 MG tablet; Take one tablet now and you may repeat one tablet 72 hours for continued symptoms Dispense: 2 tablet; Refill: 1 - discussed proper vaginal hygiene - she will take medication as prescribed and call if her symptoms persist over one week, after completing the medication. - she will continue her daily probiotic - advised to f/u as needed. Orders Placed This Encounter ??? lisdexamfetamine 40 MG capsule ??? venlafaxine XR 150 MG 24 hr capsule ??? fluconazole 150 MG tablet Cannot display discharge medications since this is not an admission. PCP: CAROLYN VALENZUELA 10/15/2020 documented in this encounter Plan of Treatment Not on file documented as of this encounter Visit Diagnoses Diagnosis Attention deficit hyperactivity disorder (ADHD), combined type- Primary Anxiety Anxiety state, unspecified Moderate episode of recurrent major depressive disorder (CMS/HCC [facility]/HCC) Vaginal yeast infection Candidiasis of vulva and vagina documented in this encounter Additional Health Concerns Assessment Noted Time PHQ-9 Depression Total Score: 13 021 10:36 AM PROSTHODONTIST documented as of this encounter Care Teams Antique Furniture Restorer Relationship Specialty Start Date End Date Cuca Dutton FNP [address] [place] [address] PCP - General Nurse Practitioner Family 05/04/18 documented as of this encounter
--- OUTSIDE RECORDS SUMMARY | 2024-03-25 18:36 | XMS_ITS | Encounter Summary ---
Author Organization [facility] Address [address] [place] [address]. [place], [place] [address] [place] [address] Care Team Providers Care Nursery Attendant Name Role Phone Cuca Dutton Primary Care Provider [phone] Encounter Details Date Type Department Care Team (Latest Contact Info) Description 02/04/2021 Travel Social History Tobacco Use Types Packs/Day [...] COVID-19? 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
--- OUTSIDE RECORDS SUMMARY | 2024-03-25 18:36 | XMS_ITS | Encounter Summary ---
Author Organization [facility] Address [address] [place] [address]. [place], [place] [address] [place] [address] Care Team Providers Care Disk Recoater Name Role Phone Antonio Nicholson Primary Care Provider [phone] Reason for Visit * Reason Onset Date Comments Refill Request 09/08/2023 Encounter Details Date Type Department Care Team (Late st Contact Info) Description 09/08/2023 Telephone [facility] Medical Group Family & Internal Medicine [facility] [address] [place] [phone] Antonio Nicholson FNP [address] [place], [place] [phone] Refill Request Social History Tobacco Use Types [...] as of this encounter Progress Notes * Coty Mei - 09/08/2023 9:06 AM CDT Medication and strength: Naltrexone Pharmacy: [facility] in [place] Call back #: [phone] Last office visit at this office: Last visit with ANTONIO NICHOLSON in [facility] was on: 05/31/2023 in [facility] Future appointment scheduled: Future Appointments Date Time Provider Department Center 10/21/2023 11:40 AM Zuly Perkins MD [id number] documented in this encounter Plan of Treatment Not on file documented as of this encounter Visit Diagnoses Diagnosis Class 1 obesity due to excess calories with serious comorbidity and body mass index (BMI) of 33.0 to 33.9 in adult documented in this encounter Additional Health Concerns Assessment Noted Time PHQ-9 Depression Total Score: 8 05/31/19 24 10:12 AM CRNA documented as of this encounter Care Teams Disk Recoater Relationship Specialty Start Date End Date Antonio Nicholson FNP [facility] [place] [address] PCP - General Nurse Practitioner Family 05/04/18 documented as of this encounter
--- OUTSIDE RECORDS SUMMARY | 2024-03-25 18:36 | XMS_ITS | Encounter Summary ---
Author Organization [facility] Address [address] [place] [address]. [place], [place] [address] [place] [address] Care Team Providers Care Electric Power Superintendent Name Role Phone Cuca Dutton Primary Care Provider [phone] Reason for Referral * Consultation (Routine) - Authorized Specialty Diagnoses / Procedures Referred By Geena t Referred To Contact Diagnoses Class 2 drug-induced obesity with serious comorbidity and body mass index (BMI) of 35.0 to 35.9 in adult Procedures OFFICE/OUTPATIENT NEW LOW MDM 30-44 MINUTES OFFICE/OUTPT VISIT,NEW,LEVL IV OFFICE/OUTPT VISIT,NEW,LEVL V OFFICE/OUTPT VISIT,EST,LEVL III OFFICE/OUTPT VISIT,EST,LEVL IV OFFICE/OUTPT VISIT,EST,LEVL V Cuca Dutton FNP [address] [place] [address] Phone: tel: fax: Niki Lopez MD Phone: tel: fax: Referral ID Status Reason Start Date Expiration Date Visits Requested Visits Authorized [id number] Authorized Specialty Services 06/09/2023 06/08/2024 99 99 Reason for Visit * Reason Onset Date Comments Problem 06/07/2023 Prior auth- Zepb ound Encounter Details Date Type Department Care Team (Late st Contact Info) Description 06/07/2023 Telephone [facility] Medical Group Family & Internal Medicine [place] [address] [place] [phone] Cuca Dutton FNP [address] [place], [place] [phone] Problem (Prior auth- Zepbound) Social History Tobacco Use Types Packs/Day Years [...] Progress Notes * Norma Araujo MA - 06/09/2023 2:40 PM CDTAddended by: NORMA ARAUJO on: 06/09/2023 02:40 PM Modules accepted: Orders * Norma Araujo MA - 06/07/2023 4:45 PM CDT No answer, no option to leave voicemail. tn * CAROLYN Martin - 06/07/2023 4:42 PM CDT We can refer her to niki lopez to see if she is eligible for other weight loss medications ., she should also call her insurance to see what they cover for weight loss * Hannah Avelar MA - 06/07/2023 8:46 AM CDT 06-07-23: Prior Auth denied for Zepbound 2.5mg/0.5mL inj, Called [facility] and spoke to [facility] and stated is noted medication is on covered on her plan. Transferred to the Benefits Review Dept and spoke to [facility]. Again informed medication is not covered on her plan and Denied-Case# [id number]. la,rma documented in this encounter Plan of Treatment Scheduled Referrals Name Type Priority Associated Diagnoses Orde r Schedule AMB Referral to Weight Managment Referral Routine Class 2 drug-induced obesity with serious comorbidity and body mass index (BMI) of 35.0 to 35.9 in adult Ordered: 06/09/2023 documented as of this encounter Visit Diagnoses Diagnosis Class 2 drug-induced obesity with serious comorbidity and body mass index (BMI) of 35.0 to 35.9 in adult- Primary documented in this encounter Additional Health Concerns Assessment Noted Time PHQ-9 Depression Total Score: 8 05/31/19 24 10:12 AM ADMINISTRATIVE SERVICES SPECIALIST documented as of this encounter Care Teams Electric Power Superintendent Relationship Specialty Start Date End Date Cuca Dutton FNP [address] [place] [address] PCP - General Nurse Practitioner Family 05/04/18 documented as of this encounter
--- OUTSIDE RECORDS SUMMARY | 2024-03-25 18:36 | XMS_ITS | Encounter Summary ---
Author Organization [facility] Address [address] [place] [address]. [place], [place] [address] [place] [address] Care Team Providers Care Screed Person Name Role Phone Cuca Dutton Primary Care Provider [phone] Encounter Details Date Type Department Care Team (Latest Contact Info) Description 09/18/2020 Travel Social History Tobacco Use Types Packs/Day [...] Depression Total Score: 13 021 10:36 AM SWORD SWALLOWER documented as of this encounter Care Teams Screed Person Relationship Specialty Start Date End Date Cuca Dutton FNP [address] [place] [address] PCP - General Nurse Practitioner Family 05/04/18 documented as of this encounter
--- OUTSIDE RECORDS SUMMARY | 2024-03-25 18:36 | XMS_ITS | Encounter Summary ---
Author Organization [facility] Address [address] [place] [address]. [place], [place] [address] [place] [address] Care Team Providers Care Credit Administration Specialist Name Role Phone Cuca Duttno CAROLYN Primary Care Provider [phone] Reason for Visit * Reason Onset Date Comments Information 07/29/2023 Encounter Details Date Type Department Care Team (Late st Contact Info) Description 07/29/2023 Telephone [facility] Medical Group Family Medicine - [place] [address] [facility], [address] [place] [phone] [place] [address] [place] [address] Information Social History Tobacco Use Types Packs/Day Years [...] as of this encounter Progress Notes * Britney Guzman MA - 07/29/2023 2:57 PM CDT Patient called back to advise she was returning my call. I advised patient of what Dr. Perkins statedbelow. She then stated I get that but how is 17 pills suppose to last me until my next appointment. I advised she is to only take half the pill per day and reschedule a follow up within the 10-12 weeks for f/u. Patient then started to argue she was only given 17 pills and started doing math that did not equate to the number of days that she needed to get her through until her follow up. She then stated ill just call back later thanked me and hung up the phone. Sending Dr. Perkins a message to advise. Checked the PDMP and found there was no record of any medication being dispensed at this time. * Britney Guzman MA - 07/29/2023 1:21 PM CDT Calling patient to advise per Dr. Perkins: Please let her know I sent ths. Let us know any side effects (Lopez, dizziness, nausea, any mental health changes) and make sure she has f/u 10-12 weeks. She will take 1/2 pill per day with the wellbutrin, avoid alcohol, opioids Patient not available. Left a vmm to contact me back. * Allen Warren - 07/29/2023 10:06 AM CDT Stephanie called in and advised she talked to her psychiatrist and said it was ok she started on the Naltrexone. CB# [phone] documented in this encounter Plan of Treatment Not on file documented as of this encounter Visit Diagnoses Not on filedocumented in this encounter Additional Health Concerns Assessment Noted Time PHQ-9 Depression Total Score: 8 05/31/19 24 10:12 AM DIRECTOR PROCESS IMPROVEMENT documented as of this encounter Care Teams Credit Administration Specialist Relationship Specialty Start Date End Date Cuca Dutton FNP [address] [place] [address] PCP - General Nurse Practitioner Family 05/04/18 documented as of this encounter
--- OUTSIDE RECORDS SUMMARY | 2024-03-25 18:36 | XMS_ITS | Encounter Summary ---
Author Organization [facility] Address [address] [place] [address]. [place], [place] [address] [place] [address] Care Team Providers Care Simulation Tech Name Role Phone Cuca Dutton Primary Care Provider [phone] Reason for Visit * Reason Onset Date Comments Refill Request 05/22/2021 Encounter Details Date Type Department Care Team (Late st Contact Info) Description 05/22/2021 Telephone [facility] Medical Group Family & Internal Medicine [facility] [address] [place] [address] Cuca Dutton FNP [address] [place] [address] Refill Request Social History Tobacco [...] as of this encounter Progress Notes * Lynette Patel - 05/22/2021 2:23 PM CST Refill vyvanse 50 mg' Venlafaxine 37.5 ' Pharmacy [facility] UTER FORENSICS INVESTIGATOR documented in this encounter Plan of Treatment Not on file documented as of this encounter Visit Diagnoses Diagnosis Anxiety Anxiety state, unspecified Moderate episode of recurrent major depressive disorder ([facility]) Attention deficit hyperactivity disorder (ADHD), combined type documented in this encounter Additional Health Concerns Assessment Noted Time PHQ-9 Depression Total Score: 3 12/04/19 21 7:29 AM CDT documented as of this encounter Care Teams Simulation Tech Relationship Specialty Start Date End Date Cuca Dutton FNP [address] [place] [address] PCP - General Nurse Practitioner Family 05/04/18 documented as of this encounter
--- OUTSIDE RECORDS SUMMARY | 2024-03-25 18:36 | XMS_ITS | Encounter Summary ---
Author Organization [facility] Address [address] [place] [address]. [place], [place] [address] [place] [address] Care Team Providers Care Bolt Machine Operator Name Role Phone Cuca Dutton Primary Care Provider [phone] Reason for Visit * Reason Onset Date Comments Refill Request 09/17/2021 Encounter Details Date Type Department Care Team (Late st Contact Info) Description 09/17/2021 Telephone [facility] Medical Group Family & Internal Medicine [facility] [address] [place] [phone] Cuca Dutton FNP [address] [place] [address] Refill Request Social History Tobacco [...] of this encounter Progress Notes * Emily Garcia MA - 09/18/2021 11:30 AM CDTAddended by: EMILY GARCIA on: 09/18/2021 11:30 AM Modules accepted: Orders * Norma Araujo MA - 09/17/2021 5:10 PM CDT Patient contacted and informed. Rx pended tn * CAROLYN Martin - 09/17/2021 4:51 PM CDT Venlafaxine there is a 100mg and a 150mg not 125 Okay to up vyvanse to 40 mg Okay for fluconazole * Shelly Durbin - 09/17/2021 3:39 PM CDT Patient is needing refills, Vyvanse, she is asking if we can up it to 40 Mh Venlafaxine, she is asking if we can lower it to 125 Mg Patient is also asking if a script for a yeast inf. States that she is know to get them. [facility] [place]. documented in this encounter Plan of Treatment Not on file documented as of this encounter Visit Diagnoses Diagnosis Yeast infection- Primary Other and unspecified mycoses Attention deficit hyperactivity disorder (ADHD), combined type Moderate episode of recurrent major depressive disorder ([facility]/HCC [facility]) documented in this encounter Additional Health Concerns Assessment Noted Time PHQ-9 Depression Total Score: 3 12/04/19 21 7:29 AM CDT documented as of this encounter Care Teams Bolt Machine Operator Relationship Specialty Start Date End Date Cuca Dutton FNP [address] [place] [address] PCP - General Nurse Practitioner Family 05/04/18 documented as of this encounter
--- OUTSIDE RECORDS SUMMARY | 2024-03-25 18:36 | XMS_ITS | Encounter Summary ---
Author Organization [facility] Address [address] [place] [address]. [place], [place] [id number] [place] [address] Care Team Providers Care Drug Abuse Counselor Name Role Phone Cuca Dutton Primary Care Provider [phone] Reason for Visit * Reason Comments Anxiety f/u Depression f/u Attention Deficit Hyperactivity Disorder f/u Encounter Details Date Type Department Care Team (Latest Contact Info) Description 12/03/2020 7:40 AM CDT Telemedicine [facility] Medical Group Family & Internal Medicine [address] [place] [address] Cuca Dutton FNP [facility] [place], [place] [id number] Anxiety (f/u); Depression (f/u); Attention Deficit Hyperactivity Disorder (f/u) Social History Tobacco Use Types Packs/Day Years [...] Instructions * Patient Instructions* CAROLYN Martin - 12/03/2020 7:40 AM CDT Start taking 75 mg of venlafaxine daily and, after two weeks, if you want, you can start taking this medication every other day to wean yourself off of it. After that two weeks, go to every other dayand slowly remove one pill a week until gone. If you develop any side effects from weaning off or your depression/anxiety symptoms return, go back on the last dose you were taking and let me know. Call for any questions or concerns Follow up in 1-3 months or sooner if needed. documented in this encounter Progress Notes * CAROLYN Martin - 12/03/2020 7:40 AM CDTSummary: medication f/u Office Progress Note Reason for Visit: Anxiety (f/u), Depression (f/u), and Attention Deficit Hyperactivity Disorder (f/u) I introduced and identified myself, received verbal consent from the patient to proceed with this video visit and made the patient aware that the same confidentiality and information consultant practices apply. The patient joined the video visit from Home. I completed the virtual visit from Home. Thefollowing clinical staff helped with this visit MA: janel Araujo. Total Time Spent in Minutes: 8 History of Present Illness: Stephanie presents via virtual visit for medication f/u Anxiety/depression- She wants to wean down on her venlafaxine due to not taking this everyday. She reports that this works when she does take it but she would like her dose to be lower and eventually, if possible, go off this medication. She denies any SI or HI presently. ADHD- Vyvanse is working well with no reported side effects. She reports that she his even sleeping better at night and is more focused during the day. She would like to continue this medication ROS: Review of Systems Constitutional: Negative for [...] Device by Intrauterine route once. ??? lisdexamfetamine 40 MG capsule Take 1 capsule (40 mg total) by mouth every morning. ??? Probiotic Product (PROBIOTIC ADVANCED) Cap No [...] Gatherings with Friends and Family: ??? Attends Sikh Services: ??? Active Member of Clubs or [...] vitals filed for this visit. Diagnoses/Impression: 1. Anxiety venlafaxine XR 75 MG 24 hr capsule 2. Moderate episode of recurrent major depressive disorder (CMS/HCC) venlafaxine XR 75 MG 24 hr capsule 3. Attention deficit hyperactivity disorder (ADHD), combined type Recommendations and Plan: 1. Anxiety - venlafaxine XR 75 MG 24 hr capsule; Take 1 capsule (75 mg total) by mouth daily. Dispense: 90 capsule; Refill: 3 - advised to drop down to 75 mg daily and see if this works for her and to call for any issues or concerns with this medication change. - discussed one month follow up, sooner if needed. 2. Moderate episode of recurrent major depressive disorder (CMS/HCC) - venlafaxine XR 75 MG 24 hr capsule; Take 1 capsule (75 mg total) by mouth daily. Dispense: 90 capsule; Refill: 3 - advised to drop down to 75 mg daily and see if this works for her and to call for any issues or concerns with this medication change. - discussed one month follow up, sooner if needed. 3. Attention deficit hyperactivity disorder (ADHD), combined type - she will continue the Vyvanse as previously prescribed and call for any issues with this medication. - routine, 3 month f/u advised. Orders Placed This Encounter ??? venlafaxine XR 75 MG 24 hr capsule Cannot display discharge medications since this is not an admission. PCP: CAROLYN VALENZUELA 12/03/2020 Cosigned by Faizan Osuna MD at 12/31/2020 2:01 PM CDT documented in this encounter Plan of Treatment Not on file documented as of this encounter Visit Diagnoses Diagnosis Anxiety- Primary Anxiety state, unspecified Moderate episode of recurrent major depressive disorder (CMS/HCC HHS/HCC) Attention deficit hyperactivity disorder (ADHD), combined type documented in this encounter Additional Health Concerns Assessment Noted Time PHQ-9 Depression Total Score: 3 12/04/19 21 7:29 AM CDT documented as of this encounter Care Teams Drug Abuse Counselor Relationship Specialty Start Date End Date Cuca Dutton FNP [address] [place] [id number] PCP - General Nurse Practitioner Family 05/04/18 documented as of this encounter
--- OUTSIDE RECORDS SUMMARY | 2024-03-25 18:36 | XMS_ITS | Encounter Summary ---
Author Organization [facility] Address [address] [place] [address]. [place], [place] [id number] [place] [address] Care Team Providers Care Linux Programmer Name Role Phone Antonio Nicholson Primary Care Provider [phone] Reason for Visit * Reason Comments Rash ingrown hairs in pub ic area Encounter Details Date Type Department Care Team (Late st Contact Info) Description 04/06/2021 10:00 AM REMOTE ENCODING CENTER MANAGER Office Visit [facility] Medical Group Family & Internal Medicine [facility] [address] [place] [phone] Antonio Nicholson FNP [address] [place], [place] [phone] Rash (ingrown hairs in pubic area) Social History Tobacco Use Types Packs/Day Years [...] COVID-19? No / Unsure 04/06/2021 9:58 AM REMOTE ENCODING CENTER MANAGER documented as of this encounter Last Filed Vital Signs Vital Sign Reading Time Taken Comments Blood Pressure 114/69 04/06/2021 10:12 AM REMOTE ENCODING CENTER MANAGER Pulse 86 04/06/2021 10:12 AM REMOTE ENCODING CENTER MANAGER Temperature 36.3 ??C (97.3 ??F) 04/06/2021 10:[address] Respiratory Rate 16 04/06/2021 10:12 AM REMOTE ENCODING CENTER MANAGER Oxygen Saturation 99% 04/06/2021 10:12 AM REMOTE ENCODING CENTER MANAGER Inhaled Oxygen Concentration - - Weight 57.6 kg (127 lb) 04/06/2021 10:12 AM REMOTE ENCODING CENTER MANAGER Height 162.6 cm (5' 4 ) 04/06/2021 10:12 AM REMOTE ENCODING CENTER MANAGER Body Mass Index 21.8 04/06/2021 10:12 AM REMOTE ENCODING CENTER MANAGER documented in this encounter Patient Instructions * Patient Instructions* Antonio NicholsonCAROLYN - 04/06/2021 10:00 AM REMOTE ENCODING CENTER MANAGER Images from the original note were not included. Patient Education Folliculitis About this topic Folliculitis is caused by a germ on the skin that gets into the hair root or follicle. This is a small sac just under the skin where the hair starts to grow. It can happen in any part of the body where hair grows. Folliculitis is small, raised, red spots around the hair. The hair roots swell and fill with pus. They may itch, burn, have drainage, or feel tender. There are two main types of folliculitis: Surface folliculitis is also called superficial folliculitis. It most often goes away on its own steve few days. ?? Hair follicles on the face, within the dolan, may get infected. This is called Campbell's itch. Folliculitis is often found in any place where you shave often. Shaving can make it worse. Pseudofolliculitis barbae is a kind of superficial folliculitis. It happens when curly hairs on a dolan are cuttoo short and they curl into the skin. This causes redness and swelling. ?? Hot tub folliculitis is caused by a germ that lives in places like hot tubs when chlorine and pHlevels are not what they should be. This type often appears on the parts of the body that are sitting in the tub water like the legs, hips, and bottom. ?? Another kind of folliculitis is often found on the back, chest, neck, shoulders, face, or upper arms. ?? A carbuncle is a group of hairs, or follicles, that are infected. Deep folliculitis causes painful pus-filled bumps, called boils, and may need more care. ?? Boils are also called furuncles. They happen when hair follicles become infected with bacteria. A large bump forms and fills with pus. The skin near the boil can become sore and swollen. After a few days, the boil will open and drain. A group of boils can cause a more serious infection. They will take longer to heal. ?? People with a poor immune system from AIDS or a blood disorder may have pus- filled sores on the face, back, or upper arms. The sores spread and may leave that part of the skin darker when they heal. ?? People who are taking certain kinds of drugs to treat pimples can also get a type of deep folliculitis. What are the causes? Damage to hair follicles due to: ?? Clothes rubbing the skin ?? Follicles get blocked ?? Repeated shaving ?? Sweating ?? Pimples or other skin problems like dermatitis ?? Skin cuts, scrapes, or picking the skin ?? Not keeping your skin clean ?? Soaking in water that is not clean Often, the hair follicle gets infected by bacteria which often live on the skin. What are the main signs? ?? Small red skin bumps or rash ?? Skin itches or is sore to touch ?? Skin irritation ?? Blisters or pimples filled with pus that break open and crust over ?? Bumps around individual hairs How does the doctor treat this health problem? Folliculitis is most often not a serious health problem. If there is pus in the infected part of the skin, using warm, wet compresses can help the pus drain. The infection is often gone in about 1 week with care. What drugs may be needed? The doctor may order drugs to: ?? Fight an infection ?? Apply to the skin over the area What problems could happen? ?? Folliculitis may come back or may spread to other parts on the body. ?? Very bad cases can cause lasting hair loss and scarring. ?? You could get a more serious infection of the skin and deeper tissue called cellulitis or an abscess. What can be done to prevent this health problem? ?? Keep your skin clean. ?? Use antibacterial soap. ?? Keep from getting cuts or breaks in the skin. ?? Do not wear tight clothes that rub on your skin. ?? Do not shave the infected skin. ?? When you do shave, do not share razor blades. Electric nida may be better because they cause less breaks or cuts in the skin. ?? Only swim in hot tubs and pools that are clean and well cared for. Where can I learn more? [employer] http://www.bad.org.uk/site/819/default.aspx Last Reviewed Date 2015-10-29 Consumer Information Use and Disclaimer This information is not specific medical advice and does not replace information you receive from your health care provider. This is only a brief summary of general information. It does NOT include all information about conditions, illnesses, injuries, tests, procedures, treatments, therapies, discharge instructions or life-style choices that may apply to you. You must talk with your health care provider for complete information about your health and treatment options. This information should not be used to decide whether or not to accept your health care provider???s advice, instructions or recommendations. Only your health care provider has the knowledge and training to provide advice that is right for you. Copyright Copyright ?? 2017 [facility] [employer] and its affiliates and/or licensors. All rights reserved. TE ENCODING CENTER MANAGER documented in this encounter Progress Notes * CAROLYN Martin - 04/06/2021 10:00 AM CSTSummary: folliculiis, abscesss Office Progress Note Reason for Visit: Rash (ingrown hairs in pubic area) History of Present Illness: Stephanie presents to the office for c/o rash Waxing pubic hair 6 months ago with no issues and now is shaving and it having ingrown hairs and abscesses in her pubic area. She reports redness, swelling and tenderness from the area of concern. She has been using disposable razors. She also reports that she does get yeast infections with oral antibiotic use and will need a prescription for fluconazole. Recent covid infection (couple weeks ago) and is still having cough and some sob. She was seen an urgent care about one to two weeks ago and was given an inhaler. She has not had a chest x ray. ROS: Review of Systems Constitutional: Negative for chills, diaphoresis, fever, malaise/fatigue and weight loss. HENT: Negative for congestion, ear discharge, ear pain, hearing loss, nosebleeds, sinus pain, sore throat and tinnitus. Eyes: Negative for blurred vision, double vision, photophobia, pain, discharge and redness. Respiratory: Positive for cough and shortness of breath. Negative for hemoptysis, sputum production, wheezing and stridor. Cardiovascular: Negative for chest pain, palpitations, orthopnea, claudication, leg swelling and PND. Gastrointestinal: Negative for abdominal pain, blood in stool, constipation, diarrhea, heartburn, melena, nausea and vomiting. Genitourinary: Negative for dysuria, flank pain, frequency, hematuria and urgency. Musculoskeletal: Negative for back pain, falls, joint pain, myalgias and neck pain. Skin: Positive for rash. Negative for itching. Neurological: Negative for dizziness, tingling, tremors, sensory [...] by Intrauterine route once. ??? lisdexamfetamine (VYVANSE) 50 MG capsule Take 1 capsule (50 mg total) by mouth every morning. ??? Probiotic Product (PROBIOTIC ADVANCED) Cap ??? venlafaxine XR 37.5 MG 24 hr capsule Take 1 capsule (37.5 mg total) by mouth daily. ??? albuterol sulfate HFA 108 (90 Base) MCG/ACT inhaler Inhale 2 puffs into the lungs every 4 (four) hours as needed. No current facility-administered medications on file prior [...] refill takes less than 2 seconds. Findings: Abscess (periarea, reddened and raised, tender to palpate, non draining) and erythema present. No rash. Neurological: Mental Status: She is [...] Cognition and memory normal. Judgment: Judgment normal. Filed Vitals: 04/06/21 1012 BP: 114/69 Pulse: 86 Resp: 16 Temp: 97.3 ??F (36.3 ??C) SpO2: 99% Weight: 57.6 kg (127 lb) Height: 5' 4 (1.626 m) Diagnoses/Impression: 1. Folliculitis doxycycline hyclate 100 MG capsule 2. Abscess doxycycline hyclate 100 MG capsule 3. Antibiotic-induced yeast infection fluconazole 150 MG tablet 4. Cough XR CHEST PA+LAT 5. Personal history of COVID-19 XR CHEST PA+LAT Recommendations and Plan: 1. Folliculitis - doxycycline hyclate 100 MG capsule; Take 1 capsule (100 mg total) by mouth 2 (two) times daily for 10 days. Dispense: 20 capsule; Refill: 0 - advised to take medication as directed and prescribed. We discussed making sure to eat with this abx to prevent stomach upset. - advised warm, moist compresses a couple times a day to promote draining of abscess. - discussed using an electric razor for shaving but not to resume shaving until all lesions have healed. - routine f/u advised, sooner if needed. 2. Abscess - doxycycline hyclate 100 MG capsule; Take 1 capsule (100 mg total) by mouth 2 (two) times daily for 10 days. Dispense: 20 capsule; Refill: 0 - advised to take medication as directed and prescribed. We discussed making sure to eat with this abx to prevent stomach upset. - advised warm, moist compresses a couple times a day to promote draining of abscess. - discussed using an electric razor for shaving but not to resume shaving until all lesions have healed. - routine f/u advised, sooner if needed. 3. Antibiotic-induced yeast infection - fluconazole 150 MG tablet; Take one tablet now and you may repeat one tablet 72 hours for continued symptoms Dispense: 2 tablet; Refill: 1 - advised to start medication at the first sign of a vaginal yeast infection. 4. Cough - XR CHEST PA+LAT; Future - advised to continue using inhaler as needed - imaging as ordered - routine f/u advised, sooner if Needed 5. Personal history of COVID-19 - XR CHEST PA+LAT; Future - advised to continue using inhaler as needed - imaging as ordered - routine f/u advised, sooner if Needed Orders Placed This Encounter ??? XR CHEST PA+LAT ??? albuterol sulfate HFA 108 (90 Base) MCG/ACT inhaler ??? doxycycline hyclate 100 MG capsule ??? fluconazole 150 MG tablet Cannot display discharge medications since this is not an admission. I spent 32 minutes today reviewing the patient's medical record, obtaining history, performing an exam, ordering medications, tests, and/or procedures, documenting in the medical record, counseling and educating the patient/family/caregiver, reviewing and communicating test results and coordinationof care. PCP: CAROLYN VALENZUELA 04/06/2021 TE ENCODING CENTER MANAGER documented in this encounter Plan of Treatment Not on file documented as of this encounter Results * XR CHEST PA+LAT (04/06/2021 10:53 AM REMOTE ENCODING CENTER MANAGER) Anatomical Region Laterality Modality Chest Radiographic María ging 04/06/2021 10:5 8 AM REMOTE ENCODING CENTER MANAGER Impressions 04/06/2021 11:01 AM REMOTE ENCODING CENTER MANAGER IMPRESSION: No radiographic evidence of active chest disease. Ordered By: ANTONIO NICHOLSON Interpreted By: Paul Stroud MD, 04/06/2021 10:58 AM Narrative 04/06/2021 11:01 AM REMOTE ENCODING CENTER MANAGER Examination: XR CHEST PA+LAT Exam time: 04/06/2021 10:47 AM Clinical history: cough and sob since having Covid 3 weeks ago Comparison: No prior exam Technique: Upright PA and lateral views Findings: Cardiac silhouette and pulmonary vasculature are within normal limits. No evidence of focal atelectasis or consolidation. No evidence of pleural effusion. Pulmonary interstitium within normal limits. Bilateral metallic densities consistent with nipple piercing. Overall, no radiographic evidence of active chest disease. Procedure Note Paul Stroud MD - 04/06/2021 Examination: XR CHEST PA+LAT Exam time: 04/06/2021 10:47 AM Clinical history: cough and sob since having Covid 3 weeks ago Comparison: No prior exam Technique: Upright PA and lateral views Findings: Cardiac silhouette and pulmonary vasculature are within normallimits. No evidence of focal atelectasis or consolidation. No evidence ofpleural effusion. Pulmonary interstitium within normal limits. Bilateralmetallic densities consistent with nipple piercing. Overall, noradiographic evidence of active chest disease. IMPRESSION: No radiographic evidence of active chest disease. Ordered By: ANTONIO NICHOLSON Interpreted By: Paul Stroud MD, 04/06/2021 10:58 AM Antonio Nicholson [facility] Final Result documented in this encounter Visit Diagnoses Diagnosis Folliculitis- Primary Other specified disease of hair and hair follicles Abscess Cellulitis and abscess of unspecified site Antibiotic-induced yeast infection Cough Personal history of COVID-19 documented in this encounter Additional Health Concerns Assessment Noted Time PHQ-9 Depression Total Score: 3 12/04/19 21 7:29 AM CDT documented as of this encounter Care Teams Linux Programmer Relationship Specialty Start Date End Date Antonio Nicholson FNP [address] [place] [id number] PCP - General Nurse Practitioner Family 05/04/18 documented as of this encounter
--- OUTSIDE RECORDS SUMMARY | 2024-03-25 18:36 | XMS_ITS | Encounter Summary ---
Author Organization [facility] Address [address] [place] [address]. [place], [place] [id number] [place] [address] Care Team Providers Care Communication Studies Professor Name Role Phone Cuca Dutton CAROLYN Primary Care Provider [phone] Reason for Visit * Reason Onset Date Comments After Hours Page 11/09/2020 lost med Encounter Details Date Type Department Care Team (Late st Contact Info) Description 11/09/2020 Telephone [facility] Medical Group Family Medicine [address] [phone] Maricel Baker FNP[address] [address] After Hours Page (lost med) Social History Tobacco Use Types Packs/Day Years [...] as of this encounter Progress Notes * KARIME Cobb - 11/09/2020 8:29 AM CDTSummary: lost med Pt called exchanges, she was started on Vyvanse and she just returned from [facility]. She realized she did not have her Vyvanse. She had filled on 10/15; advised I cannot fill early based on controlled substance agreement but would send you a message so you are aware. Also signed her up for [employer]. Link sent to her email and removed her mother's email. documented in this encounter Plan of Treatment Not on file documented as of this encounter Visit Diagnoses Not on filedocumented in this encounter Additional Health Concerns Assessment Noted Time PHQ-9 Depression Total Score: 13 021 10:36 AM PRODUCT EXAMINER documented as of this encounter Care Teams Communication Studies Professor Relationship Specialty Start Date End Date Cuca Dutton FNP [address] [place] [address] PCP - General Nurse Practitioner Family 05/04/18 documented as of this encounter
--- OUTSIDE RECORDS SUMMARY | 2024-03-25 18:36 | XMS_ITS | Encounter Summary ---
Author Organization [facility] Address [address] [place] [address]. [place], [place] [id number] [place] [id number] Care Team Providers Care Marketing Strategy Lead Name Role Phone Cuca Dutton Primary Care Provider [phone] Reason for Referral * (Routine) - Closed Specialty Diagnoses / Procedures Referred By Contac t Referred To Contact Diagnoses Vaginal odor At risk for sexually transmitted disease due to unprotected sex Procedures VAGINITIS SCREEN ([facility] ONLY) Cuca Dutton FNP [address] [place] [address] Phone: tel: fax: Referral ID Status Reason Start Date Expiration Date Visits Re quested Visits Authorized [id number] Closed 05/19/2020 06/16/2021 1 1 OR BEAUTY SALON ASSISTANT Reason for Visit * Reason Comments Vaginal Problem Depression Encounter Details Date Type Department Care Team (Late st Contact Info) Description 05/19/2020 10:00 AM HAIR OR BEAUTY SALON ASSISTANT Office Visit [facility] - [place] [address] [place] [address] Cuca Dutton FNP [address] [place] [address] Vaginal Problem; Depression Social History Tobacco Use Types Packs/Day Years [...] have Coronavirus / COVID-19? No / Unsure 05/19/2020 9:50 AM HAIR OR BEAUTY SALON ASSISTANT documented as of this encounter Last Filed Vital Signs Vital Sign Reading Time Taken Comments Blood Pressure 102/65 05/19/2020 10:25 AM HAIR OR BEAUTY SALON ASSISTANT Pulse 93 05/19/2020 10:25 AM HAIR OR BEAUTY SALON ASSISTANT Temperature 36.7 ??C (98.1 ??F) 05/19/2020 10:[address] Respiratory Rate 16 05/19/2020 10:25 AM HAIR OR BEAUTY SALON ASSISTANT Oxygen Saturation 99% 05/19/2020 10:25 AM HAIR OR BEAUTY SALON ASSISTANT Inhaled Oxygen Concentration - - Weight 58.1 kg (128 lb) 05/19/2020 10:25 AM HAIR OR BEAUTY SALON ASSISTANT Height 162.6 cm (5' 4 ) 05/19/2020 10:25 AM HAIR OR BEAUTY SALON ASSISTANT Body Mass Index 21.97 05/19/2020 10:25 AM HAIR OR BEAUTY SALON ASSISTANT documented in this encounter Patient Instructions * Patient Instructions* CAROLYN Martin - 05/19/2020 10:00 AM HAIR OR BEAUTY SALON ASSISTANT Take medications as directed and prescribed We will call you when your tests come back. Please abstain from sexual intercourse until testing comes back, as we discussed. Maintain scheduled follow up with your psychiatrist and mental health counselor Call for any further questions or concerns Follow up routinely or sooner if needed, especially if your symptoms do not improve. OR BEAUTY SALON ASSISTANT OR BEAUTY SALON ASSISTANT documented in this encounter Progress Notes * CAROLYN Martin - 05/19/2020 10:00 AM CSTSummary: vaginal complaints Office Progress Note Reason for Visit: Vaginal Problem and Depression History of Present Illness: Stephanie presents to the clinic today for STD testing and for her depression. STD testing- She is currently sexually active but the last time that she has sexual intercourse wasin January. Reports having multiple sex partners in the past, but has recently only been with 1 person. Reports that they were having unprotected sexual intercourse. She stated that about a month ago she started having a noticeable foul smell. Denies itching, vaginal discharge, pain, or tenderness. Denies pain with intercourse. Denies any urgency, frequency, and dysuria with urination. Reports that she was prescribed a prescription but lost the medication and never took it. Reports having an IUD in place. Has had hx of BV and yeast infection in the past. Depression- Reports that in March she went to the hospital for her mental health. After being discharged from the hospital she started seeing a psychiatrist and mental health counselor. Reports that the psychiatrist prescribed her Effexor and Hydroxyzine for her depression. She stated that her medications are helping moderately with her symptoms and she doesn't have any adverse effects. She wasdiagnosed with depression 3 years ago and since then her mental health has been all over the place,but in March it got really bad. Reports that she has had no appetite, no patria in doing regular activities, fatigue, and anxiety. Denies any SI or HI. Reports seeing a mental health counselor once weekly. Vitamin d deficiency- due for a recheck of this level- she is taking a daily supplement for this issue. ROS: Review of Systems Constitutional: Positive for malaise/fatigue. Negative for chills, diaphoresis, fever and weight loss. HENT: Negative for congestion, [...] pain, frequency, hematuria and urgency. Vaginal discharge and odor Musculoskeletal: Negative for back pain, falls, joint [...] abuse and suicidal ideas. The patient is nervous/anxious. The patient does not have insomnia. Medications: Current Outpatient Medications on File Prior to Visit Medication Sig ??? hydrOXYzine 25 MG tablet Take 25 mg by mouth 2 (two) times daily as needed. ??? levonorgestrel (MIRENA, 52 MG,) 20 MCG/24HR IUD 1 Intra Uterine Device by Intrauterine route once. ??? Probiotic Product (PROBIOTIC ADVANCED) Cap ??? venlafaxine XR 37.5 MG 24 hr capsule Take 37.5 mg by mouth daily. No current facility-administered medications [...] file Occupational History ??? Not on file Social Needs ??? Financial resource strain: Not on file ??? Food insecurity Worry: Not on file Inability: Not on file ??? Transportation needs Medical: Not on file Non-medical: Not on file Tobacco Use ??? Smoking status: Never Smoker ??? Smokeless tobacco: Never Used Substance and Sexual Activity ??? Alcohol use: No Frequency: Never ??? Drug use: No ??? Sexual activity: Never control/protection: Inserts Lifestyle ??? Physical activity Days per week: Not on file Minutes per session: Not on file ??? Stress: Not on file Relationships ??? Social connections Talks on phone: Not on file Gets together: Not on file Attends restorationist service: Not on file Active member of club or organization: Not on file Attends meetings of clubs or organizations: Not on file Relationship status: Not on file ??? Intimate partner violence Fear of current or ex partner: Not on file Emotionally abused: Not on file Physically abused: Not on file Forced sexual activity: Not on file Other Topics Concern ??? Not on file Social History Narrative ??? Not on file Family History: Family History Problem Relation Name Age of Onset ??? No Known Problems Mother ??? No Known Problems Father ??? Diabetes Maternal Grandfather PE: Physical Exam Constitutional: She is oriented to person, place, and time. Vital signs are normal. She appears well-developed and well-nourished. She is cooperative. She does not have a sickly appearance. She does not appear ill. No distress. HENT: Head: Normocephalic and atraumatic. Right Ear: Hearing, tympanic membrane, external ear and ear canal normal. Left Ear: Hearing, tympanic membrane, external ear and ear canal normal. Nose: Nose normal. Mouth/Throat: Mucous membranes are normal. Eyes: Conjunctivae, EOM and lids are normal. Neck: Trachea normal, normal range of motion, full passive range of motion without pain and phonation normal. Neck supple. Normal carotid pulses present. No spinous process tenderness and no musculartenderness present. Carotid bruit is not present. No thyroid mass present. Cardiovascular: Normal rate, regular rhythm, normal heart sounds and intact distal pulses. Pulmonary/Chest: Effort normal and breath sounds normal. No accessory muscle usage. No respiratory distress. She has no decreased breath sounds. She has no wheezes. She has no rhonchi. She has no rales. Abdominal: Soft. Normal appearance and bowel sounds are normal. She exhibits no abdominal bruit andno pulsatile midline mass. There is no hepatosplenomegaly. There is no abdominal tenderness. There is no CVA tenderness. Genitourinary: Uterus and rectum normal. No labial fusion. There is no rash, tenderness, lesion or injury on the right labia. There is no rash, tenderness, lesion or injury on the left labia. Uterus is not enlarged and not tender. Cervix exhibits discharge and friability. Cervix exhibits no motion tenderness. Right adnexum displays no mass, no tenderness and no fullness. Left adnexum displays no mass, no tenderness and no fullness. Vagin al discharge present. No vaginal erythema, tenderness or bleeding. No erythema, tenderness or bleeding in the vagina. No foreign body in the vagina. No signs of injury in the vagina. Lymphadenopathy: She has no cervical adenopathy. Neurological: She is alert and oriented to person, place, and time. She has normal strength. No cranial nerve deficit or sensory deficit. Coordination and gait normal. Skin: Skin is warm, dry and intact. No rash noted. Psychiatric: She has a normal mood and affect. Her speech is normal and behavior is normal. Judgment and thought content normal. Cognition and memory are normal. Filed Vitals: 05/19/20 1025 BP: 102/65 Pulse: 93 Resp: 16 Temp: 98.1 ??F (36.7 ??C) SpO2: 99% Weight: 58.1 kg (128 lb) Height: 5' 4 (1.626 m) Diagnoses/Impression: 1. Vaginal odor URINALYSIS AUTO DIP TEST URINE VAGINITIS SCREEN ([facility] ONLY) 2. At risk for sexually transmitted disease due to unprotected sex TEST URINE VAGINITIS SCREEN ([facility] ONLY) HEPATITIS PANEL,ACUTE HIV AG/AB, 4TH GEN W/RFX ([facility] ONLY) RPR (MONITOR) W/RFX TO TITER ([facility] ONLY) CHLAMYDIA AND GC RNA TMA ([facility] ONLY) HSV 1&2 IGM WI RFX TO TITER 3. Leukocytes in urine CULTURE URINE 4. Vaginal discharge MICHAEL PREP SMEAR, STAIN, WET PREP CANCELED: GRAM STAIN CANCELED: GRAM STAIN 5. Anxiety CBC W/DIFF AUTOMATED LIPID PANEL TSH W/REFLEX VITAMIN B12 / FOLATE 6. Vitamin D deficiency VITAMIN D, 25 OH URIC ACID BLOOD COMPREHENSIVE METABOLIC PANEL 7. Vaginal yeast infection fluconazole 150 MG tablet 8. BV (bacterial vaginosis) metroNIDAZOLE (METROGEL VAGINAL) 0.75 % vaginal gel 9. Moderate episode of recurrent major depressive disorder ([facility]) Recommendations and Plan: 1. Vaginal odor - URINALYSIS AUTO DIP - TEST URINE - VAGINITIS SCREEN ([facility] ONLY); Future - VAGINITIS SCREEN ([facility] ONLY) 2. At risk for sexually transmitted disease due to unprotected sex - TEST URINE - VAGINITIS SCREEN ([facility] ONLY); Future - VAGINITIS SCREEN ([facility] ONLY) - HEPATITIS PANEL,ACUTE; Future - HIV AG/AB, 4TH GEN W/RFX ([facility] ONLY); Future - RPR (MONITOR) W/RFX TO TITER ([facility] ONLY); Future - CHLAMYDIA AND GC RNA TMA ([facility] ONLY); Future - HSV 1&2 IGM WI RFX TO TITER; Future - HEPATITIS PANEL,ACUTE - HIV AG/AB, 4TH GEN W/RFX ([facility] ONLY) - RPR (MONITOR) W/RFX TO TITER ([facility] ONLY) - CHLAMYDIA AND GC RNA TMA ([facility] ONLY) - HSV 1&2 IGM WI RFX TO TITER 3. Leukocytes in urine - CULTURE URINE; Future - CULTURE URINE 4. Vaginal discharge - MICHAEL PREP - SMEAR, STAIN, WET PREP 5. Anxiety - CBC W/DIFF AUTOMATED; Future - LIPID PANEL; Future - TSH W/REFLEX; Future - VITAMIN B12 / FOLATE; Future - CBC W/DIFF AUTOMATED - LIPID PANEL - TSH W/REFLEX - VITAMIN B12 / FOLATE 6. Vitamin D deficiency - VITAMIN D, 25 OH; Future - URIC ACID BLOOD; Future - COMPREHENSIVE METABOLIC PANEL; Future - VITAMIN D, 25 OH - URIC ACID BLOOD - COMPREHENSIVE METABOLIC PANEL 7. Vaginal yeast infection - fluconazole 150 MG tablet; Take one tablet now and you may repeat one tablet 72 hours for continued symptoms Dispense: 2 tablet; Refill: 1 8. BV (bacterial vaginosis) - metroNIDAZOLE (METROGEL VAGINAL) 0.75 % vaginal gel; Place vaginally nightly at bedtime for 7 days. Please give 7 applicators if available Dispense: 70 g; Refill: 0 9. Moderate episode of recurrent major depressive disorder (CMS/HCC) - she is to start the vaginal cream at night for the next 7 nights and the other medication as directed and prescribed. She will abstain from sexual intercourse until treatment is complete and tests have returned. She will get her routine blood work done as soon as she can and we will call her backwith these results when they come back. - we discussed maintaining scheduled follow up with her psychiatrist and mental health counselor. - she was advised to follow up with me, routinely or sooner if needed or otherwise advised. Orders Placed This Encounter ??? URINALYSIS AUTO DIP ??? TEST URINE ??? CBC W/DIFF AUTOMATED ??? LIPID PANEL ??? TSH W/REFLEX ??? VITAMIN D, 25 OH ??? URIC ACID BLOOD ??? COMPREHENSIVE METABOLIC PANEL ??? VITAMIN B12 / FOLATE ??? HEPATITIS PANEL,ACUTE ??? HIV AG/AB, 4TH GEN W/RFX ([facility] ONLY) ??? RPR (MONITOR) W/RFX TO TITER ([facility] ONLY) ? ? HSV 1&2 IGM WI RFX TO TITER ??? venlafaxine XR 37.5 MG 24 hr capsule ??? hydrOXYzine 25 MG tablet ??? Probiotic Product (PROBIOTIC ADVANCED) Cap ??? fluconazole 150 MG tablet ??? metroNIDAZOLE (METROGEL VAGINAL) 0.75 % vaginal gel ??? VAGINITIS SCREEN ([facility] ONLY) ??? CULTURE URINE ??? CHLAMYDIA AND GC RNA TMA ([facility] ONLY) ??? MICHAEL PREP ??? SMEAR, STAIN, WET PREP Cannot display discharge medications since this is not an admission. PCP: CAROLYN VALENZUELA 05/21/2020 OR BEAUTY SALON ASSISTANT * CAROLYN Martin - 05/19/2020 10:00 AM CST Labs are negative for any STDs. Vitamin d could be higher. She should be taking a vitamin d 3 supplement daily. Take a vitamin b 12 supplement daily. Other labs look good. OR BEAUTY SALON ASSISTANT documented in this encounter Plan of Treatment Scheduled Orders Name Type Priority Associated Diagnoses Orde r Schedule CBC W/DIFF AUTOMATED Lab Routine Anxiety Expected: 05/19/2020, Expires: 05/19/2021 LIPID PANEL Lab Routine Anxiety Expected: 05/19/2020, Expires: 05/19/2021 TSH W/REFLEX Lab Routine Anxiety Expected: 05/19/2020, Expires: 05/19/2021 VITAMIN D, 25 OH Lab Routine Vitamin D deficiency Expected: 05/19/2020, Expires: 05/19/2021 URIC ACID BLOOD Lab Routine Vitamin D deficiency Expected: 05/19/2020, Expires: 05/19/2021 COMPREHENSIVE METABOLIC PANEL Lab Routine Vitamin D deficiency Expected: 05/19/2020, Expires: 05/19/2021 VITAMIN B12 / FOLATE Lab Routine Anxiety Expected: 05/19/2020, Expires: 05/19/2021 HEPATITIS PANEL,ACUTE Lab Routine At risk for sexually transmitted disease due to unprotected sex Expected: 05/19/2020, Expires: 05/19/2021 HIV AG/AB, 4TH GEN W/RFX ([facility] ONLY) Lab Routine At risk for sexually transmitted disease due to unprotected sex Expected: 05/19/2020, Expires: 05/19/2021 RPR (MONITOR) W/RFX TO TITER ([facility] ONLY) Lab Routine At risk for sexually transmitted disease due to unprotected sex Expected: 05/19/2020, Expires: 05/19/2021 CHLAMYDIA AND GC RNA TMA ([facility] ONLY) Microbiology Routine At risk for sexually transmitted disease due to unprotected sex Expected: 05/19/2020, Expires: 05/19/2021 HSV 1&2 IGM WI RFX TO TITER Lab Routine At risk for sexually transmitted disease due to unprotected sex Expected: 05/19/2020, Expires: 05/19/2021 documented as of this encounter Procedures Procedure Name Priority Date/Time Associated Diagnosis Comments VAGINITIS SCREEN Routine 05/19/2020 12:2 7 PM HAIR OR BEAUTY SALON ASSISTANT Vaginal odor At risk for sexually transmitted disease due to unprotected sex RPR (MONITOR/CONGENITAL <6M) WITH REFLEX TO TITER Routine 05/19/2020 11:45 AM HAIR OR BEAUTY SALON ASSISTANT VITAMIN B12 / FOLATE Routine 05/19/2020 11:45 AM HAIR OR BEAUTY SALON ASSISTANT HIV AG/AB, 4TH GEN W/RFX Routine 05/19/2020 11:45 AM HAIR OR BEAUTY SALON ASSISTANT TSH W/REFLEX Routine 05/19/2020 11:45 AM HAIR OR BEAUTY SALON ASSISTANT VITAMIN D, 25 OH TOTAL Routine 11:45 AM HAIR OR BEAUTY SALON ASSISTANT CHLAMYDIA AND GC RNA TMA Routine 05/19/2020 11:45 AM HAIR OR BEAUTY SALON ASSISTANT HERPES SIMPLEX VIRUS IGG Routine 05/19/2020 11:45 AM HAIR OR BEAUTY SALON ASSISTANT URINE BACTERIA CULTURE Routine 1 11:45 AM HAIR OR BEAUTY SALON ASSISTANT COMPREHENSIVE METABOLIC PANEL Routine 05/19/2020 11:45 AM HAIR OR BEAUTY SALON ASSISTANT HEPATITIS PANEL,ACUTE Routine 05/19/2020 11:45 AM HAIR OR BEAUTY SALON ASSISTANT CBC W/DIFF AUTOMATED Routine 05/19/2020 11:45 AM HAIR OR BEAUTY SALON ASSISTANT URIC ACID BLOOD Routine 05/19/2020 11:45 AM HAIR OR BEAUTY SALON ASSISTANT MICHAEL PREP Routine 05/19/2020 11:00 AM HAIR OR BEAUTY SALON ASSISTANT Vaginal discharge SMEAR, STAIN, WET PREP Routine 1 11:00 AM HAIR OR BEAUTY SALON ASSISTANT Vaginal discharge URINE BACTERIA CULTURE Routine 10:56 AM HAIR OR BEAUTY SALON ASSISTANT Leukocytes in urine TEST URINE Routine 05/19/2020 Vaginal odor At risk for sexually transmitted disease due to unprotected sex URINALYSIS AUTO DIP Routine 05/19/2020 Vaginal odor documented in this encounter Results * VAGINITIS SCREEN ([facility] ONLY) (05/19/2020 12:27 PM HAIR OR BEAUTY SALON ASSISTANT) CHLAMYDIA TRACHOMATIS RNA TMA NOT DETECTED [facility] N.GONORRHOEAE RNA TMA (QST) NOT DETECTED [facility] Comment: REFERENCE RANGE: NOT DETECTED Methodology: Debit Agent Mediated Amplification (TMA) to detect RNA. The analytical performance characteristics of this assay, when used to test SurePath(TM) specimens have been determined by [facility]. The modifications have not been cleared or approved by the FDA. This assay has been validated pursuant to the CLIA regulations and is used for clinical purposes. For additional information, please refer to https://education.Telsima/faq/NTX827 (This link is being provided for informational/ educational purposes only.) LACTOBACILLUS SPEC 6.9 Log (cells/m L) [facility] ATOPOBIUM VAGINAE RT-PCR NOT DETECTED Log (cells/m L) [facility] MEGASPHAERA SPECIES NOT DETECTED Log (cells/m L) [facility] GARDNERELLA VAGINALIS NOT DETECTED Log (cells/m L) [facility] BACTERIAL VAGINITIS NOT SUPPORTIVE [facility] Comment: REFERENCE RANGE: ??BV Category: NOT SUPPORTIVE Methodology: Real-Time PCR NOT SUPPORTIVE OF BV: The pattern of results is not supportive of a diagnosis of BV: 1) Presence of Lactobacillus spp., G. vaginalis levels less than 6.0 log cells/mL, and absence of A. vaginae and Megasphaera spp; or 2) Absence of all targeted organisms; or 3) Absence of Lactobacillus spp. plus G. vaginalis detected at levels less than 6.0 log cells/mL and absence of A. vaginae and Megasphaera spp. EQUIVOCAL FOR BV: The pattern of results is neither supportive nor not supportive of a diagnosis of BV. The patient may be in transition into or out of BV: Presence of Lactobacillus spp. plus G. vaginalis (greater or equal to 6.0 log cells/mL) and/or one of the other BV-associated pathogens. SUPPORTIVE OF BV: The pattern of results is supportive of a diagnosis of BV: Absence of Lactobacillus spp. and presence of G. vaginalis greater than or equal to 6.0 log cells/mL and/or one or both of the other BV-associated pathogens. Concentration for Lactobacilli (L. acidophilus/crispatus, L. jensenii) are collectively reported under the term Lactobacillus spp. , as these species are among the peroxide producing Lactobacilli thought to be protective against bacterial vaginosis. Atopobium vaginae, Megasphaera spp., and Gardnerella (greater than 6.0 log cells/mL) have been associated with vaginosis when present in the absence of peroxidase producing Lactobacilli. This test was developed and its analytical performance characteristics have been determined by [facility]. It has not been cleared or approved by FDA. This assay has been validated pursuant to the CLIA regulations and is used for clinical purposes. TRICHOMONAS NOT DETECTED [facility] Comment: REFERENCE RANGE: NOT DETECTED Methodology: Debit Agent Mediated Amplification (TMA) For additional information, please refer to http://education.Telsima/faq/Trichomonastma (This link is being provided for informational/educational purposes only.) SHARDA ALBICANS PCR (BLD) NOT DETECTED [facility] SHARDA GLABRATA PCR (BLD) NOT DETECTED [facility] SHARDA TROPICALIS PCR (BLD) NOT DETECTED [facility] SHARDA PARAPSILOSIS PCR (BLD) NOT DETECTED [facility] Comment: REFERENCE RANGE: NOT DETECTED Methodology: Real-Time PCR This test was developed and its analytical performance characteristics have been determined by [facility]. It has not been cleared or approved by FDA. This assay has been validated pursuant to the CLIA regulations and is used for clinical purposes. CERVIX UTERI STRUCTURE / Unknown 05/19/2020 12:27 PM HAIR OR BEAUTY SALON ASSISTANT 05/20/2020 2:31 AM HAIR OR BEAUTY SALON ASSISTANT [facility]uca CH[facility]STINAP MICROBIOLOGY - GENERAL ORDERAB LES Final Result Performing Organization Address City/State/[facility] Co de Phone Number [facility] - [facility], [facility] [address] [place] [address] * CULTURE URINE (05/19/2020 11:45 AM HAIR OR BEAUTY SALON ASSISTANT) CULTURE RESULT [facility] Comment: ??CULTURE, URINE, ROUTINE ?Micro Number: ?[id number] ??Test Status: ? Final ??Specimen Source: ?? URINE, CLEAN CATCH ??Specimen Quality: ??Adequate ??Result: ?No Growth 05/19/2020 11:4 5 AM HAIR OR BEAUTY SALON ASSISTANT 05/19/2020 11:56 AM HAIR OR BEAUTY SALON ASSISTANT Narrative [facility] - M[facility] ORDERS - 05/25/2020 9:42 AM HAIR OR BEAUTY SALON ASSISTANT FASTING:NO FASTING: NO Cuca Dutton [facility] MICROBIOLOGY - GENERAL ORDERAB LES Final Result Performing Organization Address [facility] Co de Phone Number [email or web address] - [facility] [address] [place] [address] * RPR (MONITOR) W/RFX TO TITER (05/19/2020 11:45 AM HAIR OR BEAUTY SALON ASSISTANT) RPR NON-REACTIV E NON-REACTI VE [facility] 05/19/2020 11:4 5 AM HAIR OR BEAUTY SALON ASSISTANT 05/19/2020 11:56 AM HAIR OR BEAUTY SALON ASSISTANT Narrative [email or web address] - MABLE ORDERS - 05/25/2020 9:42 AM HAIR OR BEAUTY SALON ASSISTANT FASTING:NO FASTING: NO Cuca Dutton [facility] Final Result Performing Organization Address [facility] de Phone Number [email or web address]NOST[facility] - MABLE ORDERS [facility] [address] [place] [address] * CHLAMYDIA AND GC RNA TMA (05/19/2020 11:45 AM HAIR OR BEAUTY SALON ASSISTANT) CHLAMYDIA TRACHOMATIS RNA TMA NOT DETECTED NOT DETECTED [facility] N.GONORRHOEAE RNA TMA (QST) NOT DETECTED NOT DETECTED [facility] COMMENT: [facility] Comment: The analytical performance characteristics of this assay, when used to test SurePath(TM) specimens have been determined by [facility]. The modifications have not been cleared or approved by the FDA. This assay has been validated pursuant to the CLIA regulations and is used for clinical purposes. For additional information, please refer to https://education.Telsima/faq/GRZ842 (This link is being provided for information/ educational purposes only.) 05/19/2020 11:4 5 AM HAIR OR BEAUTY SALON ASSISTANT 05/19/2020 11:56 AM HAIR OR BEAUTY SALON ASSISTANT Narrative [facility] - 05/25/2020 9:42 AM HAIR OR BEAUTY SALON ASSISTANT FASTING:NO FASTING: NO Cuca Dutton [facility] MICROBIOLOGY - GENERAL ORDERAB LES Final Result [facility] - MABLE ORDERS [facility] [address] [place] [address] * VITAMIN D, 25 OH TOTAL (05/19/2020 11:45 AM HAIR OR BEAUTY SALON ASSISTANT) Pathologist [facility] VITAMIN D 25 HYDROXY TOTAL S/P/B 40 30 - 100 ng/mL [facility] Comment: Vitamin D Status ? 25-OH Vitamin D: Deficiency: ?<20 ng/mL Insufficiency: ? 20 - 29 ng/mL Optimal: ? > or = 30 ng/mL For 25-OH Vitamin D testing on patients on D2-supplementation and patients for whom quantitation of D2 and D3 fractions is required, the [facility]) 25-OH VIT D, (D2,D3), LC/MS/MS is recommended: order code 81284 (patients >2yrs). See Note 1 Note 1 For additional information, please refer to http://education.Hatch/faq/WKW192 (This link is being provided for informational/ educational purposes only.) 05/19/2020 11:4 5 AM HAIR OR BEAUTY SALON ASSISTANT 05/19/2020 11:56 AM HAIR OR BEAUTY SALON ASSISTANT Narrative [facility] - 05/25/2020 9:42 AM HAIR OR BEAUTY SALON ASSISTANT FASTING:NO FASTING: NO Cuca Dutton VARIETY LATHE OPERATOR LABORATORY Final Result [facility] [address] [address] [address] * TSH W/REFLEX (05/19/2020 11:45 AM HAIR OR BEAUTY SALON ASSISTANT) Pathologist [facility] TSH 0.44 mIU/L [facility] Comment: ?Reference Range ?> or = 20 Years ??0.40-4.50 ? Ranges ?First trimester ?0.26-2.66 ?Second trimester ?? 0.55-2.73 ?Third trimester ?0.43-2.91 05/19/2020 11:4 5 AM HAIR OR BEAUTY SALON ASSISTANT 05/19/2020 11:56 AM HAIR OR BEAUTY SALON ASSISTANT Narrative [facility] - 05/25/2020 9:42 AM HAIR OR BEAUTY SALON ASSISTANT FASTING:NO FASTING: NO Cuca Dutton VARIETY LATHE OPERATOR LABORATORY Final Result [facility] [address] [place] [address] * VITAMIN B12 / FOLATE (05/19/2020 11:45 AM HAIR OR BEAUTY SALON ASSISTANT) Pathologist [facility] VITAMIN B12 S/P/B 677 200 - 1,100 pg/mL [facility] FOLATE >24.0 ng/mL [facility] Comment: ? Reference Range ? Low: ? <3.4 ? Borderline: ?3.4-5.4 ? Normal: ?>5.4 05/19/2020 11:4 5 AM HAIR OR BEAUTY SALON ASSISTANT 05/19/2020 11:56 AM HAIR OR BEAUTY SALON ASSISTANT Narrative [facility] - 05/25/2020 9:42 AM HAIR OR BEAUTY SALON ASSISTANT FASTING:NO FASTING: NO us Cuca Dutton [facility] LABORATORY Final Result Performing Organization Address [facility] de Phone Number [facility] [address] [place] [address] * HIV AB, 4TH GEN ([facility]) (05/19/2020 11:45 AM HAIR OR BEAUTY SALON ASSISTANT) HIV 1/2 AB+ HIV1 P24 AG NON-REACT BERNABE NON-REACT BERNABE [facility] Comment: HIV-1 antigen and HIV-1/HIV-2 antibodies were not detected. There is no laboratory evidence of HIV infection. PLEASE NOTE: This information has been disclosed to you from records whose confidentiality may be protected by state law. ??If your state requires such protection, then the state law prohibits you from making any further disclosure of the information without the specific written consent of the person to whom it pertains, or as otherwise permitted by law. A general authorization for the release of medical or other information is NOT sufficient for this purpose. ?? For additional information please refer to http://education.Telsima/faq/ATH632 (This link is being provided for informational/ educational purposes only.) The performance of this assay has not been clinically validated in patients less than 2 years old. 05/19/2020 11:4 5 AM HAIR OR BEAUTY SALON ASSISTANT 05/19/2020 11:56 AM HAIR OR BEAUTY SALON ASSISTANT Narrative [facility] - 05/25/2020 9:42 AM HAIR OR BEAUTY SALON ASSISTANT FASTING:NO FASTING: NO Cuca Blackwellchristina [facility] LABORATORY Final Result Performing Organization Address [facility] Co de Phone Number [facility] [address] [facility] [place] [address] * HERPES SIMPLEX VIRUS IGG (05/19/2020 11:45 AM HAIR OR BEAUTY SALON ASSISTANT) HSV IGG TYPE 1 <0.90 index [facility] HSV IGG TYPE 2 <0.90 index [facility] Comment: ?Index ?Interpretation ?----- ?<0.90 ?Negative ?0.90-1.09 ?Equivocal ?>1.09 ?Positive This assay utilizes recombinant type-specific antigens to differentiate HSV-1 from HSV-2 infections. A positive result cannot distinguish between recent and past infection. If recent HSV infection is suspected but the results are negative or equivocal, the assay should be repeated in 4-6 weeks. The performance characteristics of the assay have not been established for pediatric populations, immunocompromised patients, or screening. 05/19/2020 11:4 5 AM HAIR OR BEAUTY SALON ASSISTANT 05/19/2020 11:56 AM HAIR OR BEAUTY SALON ASSISTANT Narrative [facility] - 05/25/2020 9:42 AM HAIR OR BEAUTY SALON ASSISTANT FASTING:NO FASTING: NO Cuca CHRISTINAP LABORATORY Final Result Performing Organization Address City/State/[facility] Phone Number [facility] [address] [place] [address] * CBC W/DIFF AUTOMATED (05/19/2020 11:45 AM HAIR OR BEAUTY SALON ASSISTANT) Pathologist [facility] WBC 5.6 3.8 - 10.8 Thousand/u L [facility] RBC 4.33 3.80 - 5.10 Million/uL [facility] HGB 13.6 11.7 - 15.5 g/dL [facility] HCT 39.4 35.0 - 45.0 % [facility] MCV 91.0 80.0 - 100.0 fL [facility] MCH 31.4 27.0 - 33.0 pg [facility] MCHC 34.5 32.0 - 36.0 g/dL [facility] RDW 12.3 11.0 - 15.0 % [facility] PLT 210 140 - 400 Thousand/u L [facility] MPV 10.7 7.5 - 12.5 fL [facility] ABS. NEUTROPHILS 3,416 1,500 - 7,800 cells/uL [facility] ABS. LYMPHOCYTES 1,714 850 - 3,900 cells/uL [facility] ABS. MONOCYTES 347 200 - 950 cells/uL [facility] ABS. EOSINOPHILS 101 15 - 500 cells/uL [facility] ABS. BASOPHILS 22 0 - 200 cells/uL [facility] SEG NEUTROPHILS 61 % [facility] LYMPHOCYTES 30.6 % [facility] MONOCYTES 6.2 % [facility] EOSINOPHILS 1.8 % [facility] BASOPHILS 0.4 % [facility] 05/19/2020 11:4 5 AM HAIR OR BEAUTY SALON ASSISTANT 05/19/2020 11:56 AM HAIR OR BEAUTY SALON ASSISTANT Narrative [facility] - 05/25/2020 9:42 AM HAIR OR BEAUTY SALON ASSISTANT FASTING:NO FASTING: NO Cuca LEON LABORATORY Final Result [facility] [address] [place] [address] * COMPREHENSIVE METABOLIC PANEL (05/19/2020 11:45 AM HAIR OR BEAUTY SALON ASSISTANT) [facility] GLUCOSE 117 65 - 139 mg/dL [facility] Comment: ? Non-fasting reference interval BUN 8 7 - 25 mg/dL [facility] CREATININE S/P/B 0.73 0.50 - 1.10 mg/dL [facility] EGFR NON-AFR. AMER. 119 > OR = 60 mL/min/1. 73m2 [facility] EGFR AFR. AMER. 137 > OR = 60 mL/min/1. 73m2 [facility] BUN CREATININE RATIO NOT APPLICABLE 6 - 22 (calc) [facility] SODIUM S/P/B 139 135 - 146 mmol/L [facility] POTASSIUM S/P/B 4.1 3.5 - 5.3 mmol/L [facility] CHLORIDE S/P/B 106 98 - 110 mmol/L [facility] CO2 27 20 - 32 mmol/L [facility] CALCIUM S/P/B 9.2 8.6 - 10.2 mg/dL [facility] TOTAL PROTEIN S/P/B 6.4 6.1 - 8.1 g/dL [facility] ALBUMIN S/P/B 4.5 3.6 - 5.1 g/dL [facility] GLOBULIN 1.9 1.9 - 3.7 g/dL (calc) [facility] ALBUMIN/GLOBULI N RATIO 2.4 1.0 - 2.5 (calc) [facility] BILIRUBIN TOTAL S/P/B 0.8 0.2 - 1.2 mg/dL [facility] ALKALINE PHOSPHATASE S/P/B 68 31 - 125 U/L [facility] AST 15 10 - 30 U/L [facility] ALT 9 6 - 29 U/L [facility] 05/19/2020 11:4 5 AM HAIR OR BEAUTY SALON ASSISTANT 05/19/2020 11:56 AM HAIR OR BEAUTY SALON ASSISTANT Narrative [facility] - 05/25/2020 9:42 AM HAIR OR BEAUTY SALON ASSISTANT FASTING:NO FASTING: NO Cuca LEON LABORATORY Final Result [facility] [address] [address] * URIC ACID BLOOD (05/19/2020 11:45 AM HAIR OR BEAUTY SALON ASSISTANT) URIC ACID 4.1 2.5 - 7.0 mg/dL [facility] Comment: Therapeutic target for gout patients: <6.0 mg/dL ?? 05/19/2020 11:4 5 AM HAIR OR BEAUTY SALON ASSISTANT 05/19/2020 11:56 AM HAIR OR BEAUTY SALON ASSISTANT Narrative [facility] - 05/25/2020 9:42 AM HAIR OR BEAUTY SALON ASSISTANT FASTING:NO FASTING: NO Cuca Dutton VARIETY LATHE OPERATOR LABORATORY Final Result [facility] [address] [place] [address] * HEPATITIS PANEL,ACUTE (05/19/2020 11:45 AM HAIR OR BEAUTY SALON ASSISTANT) HAV IGM NON-REACTI VE NON-REACT BERNABE [facility] Comment: For additional information, please refer to http://[employer].Telsima/faq/ZDY694 (This link is being provided for informational/ educational purposes only.) HEPATITIS B SURFACE AG NON-REACTI VE NON-REACT BERNABE [facility] HEP B CORE IGM NON-REACTI VE NON-REACT BERNABE [facility] HEPATITIS C AB NON-REACTI VE NON-REACT BERNABE [facility] SIGNAL TO CUTOFF 0.01 <[address] [facility] Comment: HCV antibody was non-reactive. There is no laboratory evidence of HCV infection. In most cases, no further action is required. However, if recent HCV exposure is suspected, a test for HCV RNA (test code 57096) is suggested. For additional information please refer to http://[employer].Telsima/faq/LTX13p3 (This link is being provided for informational/ educational purposes only.) 05/19/2020 11:4 5 AM HAIR OR BEAUTY SALON ASSISTANT 05/19/2020 11:56 AM HAIR OR BEAUTY SALON ASSISTANT Narrative [facility] - 05/25/2020 9:42 AM HAIR OR BEAUTY SALON ASSISTANT FASTING:NO FASTING: NO Cuca Dutton VARIETY LATHE OPERATOR LABORATORY Final Result [facility] [address] [place] [address] * (ABNORMAL) SMEAR, STAIN, WET PREP (05/19/2020 11:00 AM HAIR OR BEAUTY SALON ASSISTANT) SPECIMEN SOURCE endocervi loki(Negat bernabe) [facility] WBC'S (WET PREP) many(A) [facility] RBC (WET PREP) none(Nega tive) [facility] EPITHELIAL CELLS (WET PREP) present(N egative) [facility] BACTERIA (U) NONE SEEN(Nega tive) NONE SEEN [facility] CLUE CELLS present(A ) [facility] TRICHOMONAS NEGATIVE( Negative) NEGATIVE [facility] FUNGAL ELEMENTS present(A ) [facility] OTHER none(Nega tive) [facility] ENDOCERVICAL STRUCTURE / Unknown 05/19/2020 11:00 AM HAIR OR BEAUTY SALON ASSISTANT [facility] MICROBIOLOGY - GENERAL ORDERAB LES Final Result Performing Organization Address City/[facility]/[place] [address], [place] * (ABNORMAL) MICHAEL PREP (05/19/2020 11:00 AM HAIR OR BEAUTY SALON ASSISTANT) SPECIMEN SOURCE endocervical [facility] WBC'S (WET PREP) many [facility] BACTERIA (U) NONE SEEN(Negative) NONE SEEN [facility] FUNGAL ELEMENTS few(A) [facility] ENDOCERVICAL STRUCTURE / Unknown 05/19/2020 11:00 AM HAIR OR BEAUTY SALON ASSISTANT [facility] MICROBIOLOGY - GENERAL ORDERAB LES Final Result Performing Organization Address [facility] [place] [address], [place] * CULTURE URINE (05/19/2020 10:56 AM HAIR OR BEAUTY SALON ASSISTANT) CULTURE RESULT [facility] Comment: ??CULTURE, URINE, ROUTINE ?Micro Number: ?[id number] ??Test Status: ? Final ??Specimen Source: ?? URINE ??Specimen Quality: ??Adequate ??Result: ?Growth of mixed karey was isolated, suggesting ? probable contamination. No further testing will ? be performed. If clinically indicated, ? recollection using a method to minimize ? contamination, with prompt transfer to Urine ? Culture Transport Tube, is recommended. URINE SPECIMEN FROM [facility] / Unknown 05/19/2020 10:56 AM HAIR OR BEAUTY SALON ASSISTANT 05/20/2020 2:30 AM HAIR OR BEAUTY SALON ASSISTANT Cuca Dutton VARIETY LATHE OPERATOR MICROBIOLOGY - GENERAL ORDERAB LES Final Result Performing Organization Address [facility] Co de Phone Number [facility] [address] [place] [address] * TEST URINE (05/19/2020) Pathologist [facility] URINE HCG TEST NEGATIVE NEGATIVE [facility] Internal Control: VALID VALID [facility] URINE SPECIMEN FROM [facility] / Unknown 05/19/2020 Cuca Dutton VARIETY LATHE OPERATOR URINE ORDERABLES Final Result Performing Organization Address [facility] de Phone Number [facility] [address] [place] [address], * URINALYSIS AUTO DIP (05/19/2020) COLOR (U) YELLOW [facility] TRANSPARENCY [facility] GLUCOSE (U) NEGATIVE NEGATIVE MG/DL [facility] BILIRUBIN (U) NEGATIVE NEGATIVE [facility] K[facility] MG/DL (U) 5 (TRACE) NEGATIVE MG/DL [facility] SPECIFIC GRAVITY (U) 1.030 1.001 - 1.035 [facility] BLOOD (U) NEGATIVE NEGATIVE [facility] U PH 6.0 5.0 - 9.0 [facility] PROTEIN (U) NEGATIVE NEGATIVE mg/dL [facility] UROBILINOGEN 1.0 0.2 - 1.0 EU/dL = mg/dL [facility] NITRITES NEGATIVE NEGATIVE MG/DL [facility] LEUKOCYTES (U) TRACE NEGATIVE [facility] URINE SPECIMEN OBTAINED BY CLEAN CATCH PROCEDURE / Unknown 05/19/2020 Cuca LEON URINE ORDERABLES Final Result Performing Organization Address City/State/[facility] [place] [address], documented in this encounter Visit Diagnoses Diagnosis Vaginal odor- Primary Unspecified symptom associated with female genital organs At risk for sexually transmitted disease due to unprotected sex Leukocytes in urine Other nonspecific finding on examination of urine Vaginal discharge Leukorrhea, not specified as infective Anxiety Anxiety state, unspecified Vitamin D deficiency Unspecified vitamin D deficiency Vaginal yeast infection Candidiasis of vulva and vagina BV (bacterial vaginosis) Vaginitis and vulvovaginitis, unspecified Moderate episode of recurrent major depressive disorder ([facility]) documented in this encounter Additional Health Concerns Assessment Noted Time PHQ-9 Depression Total Score: 13 021 10:36 AM HAIR OR BEAUTY SALON ASSISTANT documented as of this encounter Care Teams Marketing Strategy Lead Relationship Specialty Start Date End Date Cuca Dutton FNP [address] [place] [address] PCP - General Nurse Practitioner Family 05/04/18 documented as of this encounter
--- OUTSIDE RECORDS SUMMARY | 2024-03-25 18:36 | XMS_ITS | Encounter Summary ---
Author Organization [facility] Address [address] [place] [address]. [place], [place] [address] [place] [address] Care Team Providers Care Electronic Parts Salesperson Name Role Phone Cuca Dutton Primary Care Provider [phone] Encounter Details Date Type Department Care Team (Late st Contact Info) Description 06/06/2023 Orders Only [facility] Medical Group Family & Internal Medicine [address] [phone] Vicky Padilla, RTR Social History Tobacco Use Types Packs/Day Years [...] (BMI) of 35.0 to 35.9 in adult Metabolic disorder Unspecified disorder of metabolism documented in this encounter Additional Health Concerns Assessment Noted Time PHQ-9 Depression Total Score: 8 05/31/19 24 10:12 AM LENDING CONSULTANT documented as of this encounter Care Teams Electronic Parts Salesperson Relationship Specialty Start Date End Date Cuca Dutton FNP [address] [place] [address] PCP - General Nurse Practitioner Family 05/04/18 documented as of this encounter
--- OUTSIDE RECORDS SUMMARY | 2024-03-25 18:36 | XMS_ITS | Encounter Summary ---
Author Organization [facility] Address [address] [place] [address]. [place], [place] [id number] [place] [address] Care Team Providers Care R Developer Name Role Phone Cuca Dutton Primary Care Provider [phone] Reason for Visit * Reason Onset Date Comments Medication Request 02/21/2023 Encounter Details Date Type Department Care Team (Late st Contact Info) Description 02/21/2023 Telephone [facility] Medical Group Family & Internal Medicine [facility] [address] [place] [address] Cuca Dutton FNP [address] [place] [address] Medication Request Social History Tobacco [...] Progress Notes * Isela Matos MA - 02/21/2023 4:53 PM CST Patient informed and v/u of information. Rx sent to pharmacy. Patient will call to set up an appointment if symptoms do not resolve. ING PLUG ASSEMBLER * Faizan Osuna MD - 02/21/2023 4:51 PM CST Flagyl 500mg bid x 7 days ING PLUG ASSEMBLER * Emily Eason MA - 02/21/2023 7:51 AM CST Patient is requesting a rx for Bacterial vaginosis. Vaginal odor and discharge. Has had this in thepast . Allergic to sulfa [facility][phone] ING PLUG ASSEMBLER documented in this encounter Plan of Treatment Not on file documented as of this encounter Visit Diagnoses Diagnosis Bacterial vaginosis- Primary Vaginitis and vulvovaginitis, unspecified documented in this encounter Additional Health Concerns Assessment Noted Time PHQ-9 Depression Total Score: 4 11/24/19 22 11:18 AM CDT documented as of this encounter Care Teams R Developer Relationship Specialty Start Date End Date Cuca Dutton FNP [address] [place] [address] PCP - General Nurse Practitioner Family 05/04/18 documented as of this encounter
--- OUTSIDE RECORDS SUMMARY | 2024-03-25 18:36 | XMS_ITS | Encounter Summary ---
Author Organization [facility] Address [address] [place] [address]. [place], [place] [address] [place] [address] Care Team Providers Care Design Supervisor Name Role Phone Cuca Dutton CAROLYN Primary Care Provider [phone] Reason for Visit * Reason Comments Other Encounter Details Date Type Department Care Team (Late st Contact Info) Description 09/16/2020 2:40 PM CDT Allied Health/Nurse Visit [facility] Medical Group Family & Internal Medicine [address] [phone] Other Social History Tobacco Use Types Packs/Day [...] Procedure Name Priority Date/Time Associated Diagnosis Comments TB INTRADERMAL TEST (BACK OFFICE) Routine 09/16/2020 2:41 PM CDT Screening-pulmonary TB documented in this encounter Results * TB INTRADERMAL TEST (BACK OFFICE) (09/16/2020 2:41 PM CDT) MM INDURATION negative PPD SKIN TEST 0.0 NOT REQUIRED (NOT REQUIRED) 09/16/2020 2:41 PM CDT Cuca LEON MICROBIOLOGY - GENERAL ORDERAB LES Final Result documented in this encounter Visit Diagnoses Diagnosis Screening-pulmonary TB- Primary Screening examination for pulmonary tuberculosis documented in this encounter Administered Medications Administered Medications Medication Order MAR Action Action Date Dose Rate Site Protein Derivative (Purified) Intradermal Given 09/16/2020 0.1 mL LEFT FOREARM documented in this encounter Additional Health Concerns Assessment Noted Time PHQ-9 Depression Total Score: 13 021 10:36 AM CONTRACT ADMINISTRATIVE ASSISTANT documented as of this encounter Care Teams Design Supervisor Relationship Specialty Start Date End Date Cuca Dutton FNP [address] [place] [address] PCP - General Nurse Practitioner Family 05/04/18 documented as of this encounter
--- OUTSIDE RECORDS SUMMARY | 2024-03-25 18:36 | XMS_ITS | Encounter Summary ---
Author Organization [facility] Address [address] [place] [address]. [place], [place] [address] [place] [address] Care Team Providers Care Inpatient Auditor Name Role Phone Cuca Dutton Primary Care Provider [phone] Reason for Visit * Reason Onset Date Comments Refill Request 03/17/2021 Encounter Details Date Type Department Care Team (Late st Contact Info) Description 03/17/2021 Telephone [facility] Medical Group Family & Internal Medicine [facility] [address] [place] [address] Cuca Dutton FNP [address] [place] [address] Refill Request Social History Tobacco [...] Progress Notes * Emily Eason MA - 03/17/2021 11:38 AM CST rx sent to pharmacy , patient notified and v/u GER COMMUNICATION * CAROLYN Martin - 03/17/2021 9:48 AM CST We can prescribe the 37.5 mg daily dsp 90 GER COMMUNICATION * Shelly Durbin - 03/17/2021 8:06 AM CST Patient states that she is wanting to start weaning off of the Venlafaxine. She is due for a refill, she is asking if we can prescribe her a lower dose to help her start weaning off of it. GER COMMUNICATION documented in this encounter Plan of Treatment Not on file documented as of this encounter Visit Diagnoses Diagnosis Anxiety Anxiety state, unspecified Moderate episode of recurrent major depressive disorder ([facility]) documented in this encounter Additional Health Concerns Assessment Noted Time PHQ-9 Depression Total Score: 3 12/04/19 21 7:29 AM CDT documented as of this encounter Care Teams Inpatient Auditor Relationship Specialty Start Date End Date Cuca Dutton FNP [address] [place] [address] PCP - General Nurse Practitioner Family 05/04/18 documented as of this encounter
--- OUTSIDE RECORDS SUMMARY | 2024-03-25 18:36 | XMS_ITS | Encounter Summary ---
Author Organization [facility] Address [address] [place] [address]. [place], [place] [address] [place] [address] Care Team Providers Care Senior Core Java Developer Name Role Phone Cuca Dutton Primary Care Provider [phone] Encounter Details Date Type Department Care Team (Latest Contact Info) Description 12/03/2020 Travel Social History Tobacco Use Types Packs/Day [...] documented as of this encounter Care Teams Senior Core Java Developer Relationship Specialty Start Date End Date Cuca Dutton FNP [address] [place] [address] PCP - General Nurse Practitioner Family 05/04/18 documented as of this encounter
--- OUTSIDE RECORDS SUMMARY | 2024-03-25 18:36 | XMS_ITS | Encounter Summary ---
Author Organization [facility] Address [address] [place] [address]. 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 No / Unsure 08/28/2020 11:39 AM CDT documented as of this encounter Last Filed Vital Signs Vital Sign Reading Time Taken Comments Blood Pressure 117/78 08/28/2020 11:46 AM CDT Pulse 78 08/28/2020 11:46 AM CDT Temperature 36.9 ??C (98.4 ??F) 08/28/2020 11:46 AM C DT Respiratory Rate 16 08/28/2020 11:46 AM CDT Oxygen Saturation 100% 08/28/2020 11:46 AM CDT Inhaled Oxygen Concentration - - Weight 57.2 kg (126 lb) 08/28/2020 11:46 AM CDT Height 162.6 cm (5' 4 ) 08/28/2020 11:46 AM CDT Body Mass Index 21.63 08/28/2020 11:46 AM CDT documented in this encounter Patient Instructions * Patient Instructions* CAROLYN Martin - 08/28/2020 11:40 AM CDT Continue current medications as directed and prescribed. Maintain a heart healthy diet and daily physical activity Call for any questions, concerns or issues. Follow up, at least yearly or sooner if needed. 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 She has no new complaints or concerns. She is needing a physical form filled out and will bring this in the next week. She is needing a TBtest and we will do this next week due to it being the weekend and we will be unable to read this in 48-72 hours. She is UTD on her immunizations. ROS: Review of Systems Constitutional: Negative for [...] Product (PROBIOTIC ADVANCED) Cap ??? venlafaxine XR 150 MG 24 hr capsule No current facility-administered medications on file prior [...] Gatherings with Friends and Family: ??? Attends Rastafarian Services: ??? Active Member of Clubs or [...] EOM and lids are normal. Neck: Trachea normal and phonation normal. Normal carotid pulses present. Carotid bruit is not present. No [...] abdominal tenderness. There is no CVA tenderness. Musculoskeletal: Cervical back: Full passive range of motion without pain, normal range of motion and neck supple. No spinous process tenderness or muscular tenderness. Lymphadenopathy: She has no cervical adenopathy. Neurological: [...] Cognition and memory are normal. Filed Vitals: 08/28/20 1146 BP: 117/78 Pulse: 78 Resp: 16 Temp: 98.4 ??F (36.9 ??C) SpO2: 100% Weight: 57.2 kg (126 lb) Height: 5' 4 (1.626 m) Diagnoses/Impression: 1. Encounter for well adult exam without abnormal findings 2. BMI 21.0-21.9, adult Recommendations and Plan: 1. Encounter for well adult exam without abnormal findings 2. BMI 21.0-21.9, adult - she will maintian a heart healthy diet and daily physical activity. - college form to be filled out - she will return on Tuesday for her TB testing. - discussed routine follow up Orders Placed This Encounter ??? venlafaxine XR 150 MG 24 hr capsule ??? DISCONTD: venlafaxine XR 75 MG 24 hr capsule Cannot display discharge medications since this is not an admission. PCP: CAROLYN VALENZUELA 08/28/2020 documented in this encounter Plan of Treatment Not on file documented as of this encounter Visit Diagnoses Diagnosis Encounter for well adult exam without abnormal findings- Primary BMI 21.0-21.9, adult documented in this encounter Additional Health Concerns Assessment Noted Time PHQ-9 Depression Total Score: 13 021 10:36 AM SAWDUST MACHINE OPERATOR documented as of this encounter Care Teams Fire Engineer Relationship Specialty Start Date End Date Cuca Dutton FNP [address] [place] [address] PCP - General Nurse Practitioner Family 05/04/18 documented as of this encounter
--- OUTSIDE RECORDS SUMMARY | 2024-03-25 18:36 | XMS_ITS | Encounter Summary ---
Author Organization [facility] Address [address] [place] [address]. [place], [place] [address] [place] [address] Care Team Providers Care Talent Development Specialist Name Role Phone Cuca Dutton Primary Care Provider Encounter Details Date Type Department Care Team (Latest Contact Info) Description 05/19/2020 Travel Social History Tobacco Use Types Packs/Day [...] COVID-19? No / Unsure 05/19/2020 9:50 AM SIGHTSEEING GUIDE documented as of this encounter Plan of Treatment Not on file documented as of this encounter Visit Diagnoses Not on filedocumented in this encounter Additional Health Concerns Assessment Noted Time PHQ-9 Depression Total Score: 13 021 10:36 AM SIGHTSEEING GUIDE documented as of this encounter Care Teams Talent Development Specialist Relationship Specialty Start Date End Date Cuca Dutton FNP [address] [place] [address] PCP - General Nurse Practitioner Family 05/04/18 documented as of this encounter
--- OUTSIDE RECORDS SUMMARY | 2024-03-25 18:36 | XMS_ITS | Encounter Summary ---
Author Organization [facility] Address [address] [place] [address]. [place], [place] [address] [place] [address] Care Team Providers Care Dump Truck Operator Name Role Phone Cuca Dutton Primary Care Provider [phone] Reason for Visit * Reason Comments Anxiety c/o trouble concenta ting Encounter Details Date Type Department Care Team (Late st Contact Info) Description 10/01/2020 9:40 AM CDT Telemedicine [facility] Medical Group Family & Internal Medicine [place] [place] [address] Cuca Dutton FNP [facility] [place], [place] [phone] Anxiety (c/o trouble concentating) Social History Tobacco Use Types Packs/Day Years [...] Instructions * Patient Instructions* CAROLYN Martin - 10/01/2020 9:40 AM CDT Take medications as directed and prescribed. Maintain follow up with mental health provider for your anxiety and depression Call for any further issues, questions or concerns Follow up in one month to check the effectiveness of your medication, sooner if needed. documented in this encounter Progress Notes * CAROLYN Martin - 10/01/2020 9:40 AM CDTSummary: focus issues, increase anxiety Office Progress Note Reason for Visit: Anxiety (c/o trouble concentating) I introduced and identified myself, received verbal consent from the patient to proceed with this video visit and made the patient aware that the same confidentiality and information technology technician practices apply. The patient joined the video visit from Home. I completed the virtual visit from Home. [facility] clinical staff helped with this visit MA: Norma Araujo. Total Time Spent in Minutes: 16 History of Present Illness: Stephanie presents via virtual visit for c/o increased concentration issues. She reports that she sees a mental health nurse practitioner but she feels like she is not listening to her about her memory issues, feeling like she is in a fog and not being able to concentrate or sit still. 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 She is having trouble focusing in lectures and reports that when asked something she loses track of what they were discussing. Anxiety- She reports that the venlafaxine is working well for her anxiety but she feels like her anxiety hasincreased due to her issues with concentration and not being able to focus in college. She denies any SI or HI presently. ROS: Review of Systems Constitutional: Positive for [...] Does not bruise/bleed easily. Psychiatric/Behavioral: Positive for memory loss. Negative for depression, hallucinations, substance abuse and suicidal ideas. The patient [...] Gatherings with Friends and Family: ??? Attends Congregation Services: ??? Active Member of Clubs or [...] and time. Skin: Skin is intact. Psychiatric: Her speech is normal and behavior is normal. Judgment and thought content normal. Her mood appears anxious. Cognition and memory are normal. There were no vitals filed for this visit. Diagnoses/Impression: 1. Attention deficit hyperactivity disorder (ADHD), combined type lisdexamfetamine 20 MG capsule 2. Anxiety 3. Moderate episode of recurrent major depressive disorder ([facility]) Recommendations and Plan: 1. Attention deficit hyperactivity disorder (ADHD), combined type - lisdexamfetamine 20 MG capsule; Take 1 capsule (20 mg total) by mouth every morning. Dispense: 30capsule; Refill: 0 - advised to start medication daily, in the morning and she will call if she has any issues or sideeffects from this medication. - advised one month follow up, sooner if needed. 2. Anxiety - we discussed maintaining follow up with mental health provider as scheduled. - she will continue her current medications as previously prescribed. - one month follow up advised, sooner if needed 3. Moderate episode of recurrent major depressive disorder (CMS/HCC) - we discussed maintaining follow up with mental health provider as scheduled. - she will continue her current medications as previously prescribed. - advised to seek immediate medical attention for any thoughts or concerns for suicide. - one month follow up advised, sooner if needed Orders Placed This Encounter ??? lisdexamfetamine 20 MG capsule Cannot display discharge medications since this is not an admission. PCP: CAROLYN VALENZUELA 10/01/2020 documented in this encounter Plan of Treatment Not on file documented as of this encounter Visit Diagnoses Diagnosis Attention deficit hyperactivity disorder (ADHD), combined type- Primary Anxiety Anxiety state, unspecified Moderate episode of recurrent major depressive disorder (CMS/HCC HHS/HCC) documented in this encounter Additional Health Concerns Assessment Noted Time PHQ-9 Depression Total Score: 13 021 10:36 AM DISH NETWORK INSTALLER documented as of this encounter Care Teams Dump Truck Operator Relationship Specialty Start Date End Date Cuca Dutton FNP [address] [place] [address] PCP - General Nurse Practitioner Family 05/04/18 documented as of this encounter
--- OUTSIDE RECORDS SUMMARY | 2024-03-25 18:36 | XMS_ITS | Encounter Summary ---
Author Organization [facility] Address [address] [place] [address]. [place], [place] [address] [place] [address] Care Team Providers Care Commercial Coordinator Name Role Phone Cuca Dutton Primary Care Provider [phone] Reason for Visit * Reason Onset Date Comments Results 05/27/2020 Encounter Details Date Type Department Care Team (Late st Contact Info) Description 05/27/2020 Telephone [facility] Medical Group Family & Internal Medicine [place] [id number] [place] [address] Cuca Dutton FNP [facility] [place] [address] Results Social History Tobacco Use Types Packs/Day [...] COVID-19? No / Unsure 05/19/2020 9:50 AM RECREATION WORKER documented as of this encounter Progress Notes * Joie Tran MA - 05/27/2020 11:10 AM CST Pt contacted successfully and V/U. BB 05/27/20 EATION WORKER * Joie Tran MA - 05/27/2020 11:08 AM CST ----- Message from CAROLYN Martin sent at 05/26/2020 4:31 PM RECREATION WORKER ----- Labs are negative for any STDs. Vitamin d could be higher. She should be taking a vitamin d 3 supplement daily. Take a vitamin b 12 supplement daily. Other labs look good. EATION WORKER documented in this encounter Plan of Treatment Not on file documented as of this encounter Visit Diagnoses Not on filedocumented in this encounter Additional Health Concerns Assessment Noted Time PHQ-9 Depression Total Score: 13 021 10:36 AM RECREATION WORKER documented as of this encounter Care Teams Commercial Coordinator Relationship Specialty Start Date End Date Cuca Dutton FNP [address] [place] [address] PCP - General Nurse Practitioner Family 05/04/18 documented as of this encounter
--- OUTSIDE RECORDS SUMMARY | 2024-03-25 18:36 | XMS_ITS | Encounter Summary ---
Author Organization [facility] Address [address] [place] [address]. [place], [place] [address] [place] [address] Care Team Providers Care Athletic Turf Worker Name Role Phone Cuca Dutton Primary Care Provider [phone] Encounter Details Date Type Department Care Team (Latest Contact Info) Description 01/22/2022 Scan [facility] Scanned, Doc [...] documented as of this encounter Care Teams Athletic Turf Worker Relationship Specialty Start Date End Date Cuca Dutton FNP [address] [place] [address] PCP - General Nurse Practitioner Family 05/04/18 documented as of this encounter
--- OUTSIDE RECORDS SUMMARY | 2024-03-25 18:36 | XMS_ITS | Encounter Summary ---
Author Organization [facility] Address [address] [place] [address]. [place], [place] [address] [place] [address] Care Team Providers Care Bus Cleaner Name Role Phone Cuca Dutton Primary Care Provider [phone] Reason for Visit * Reason Onset Date Comments Vaginal Problem 11/25/2023 Encounter Details Date Type Department Care Team (Late st Contact Info) Description 11/25/2023 Telephone [facility] Medical Group Family & Internal Medicine [facility] [address] [place] [address] Cuca Dutton FNP [address] [place] [address] Vaginal Problem Social History Tobacco [...] Progress Notes * Norma Araujo MA - 11/25/2023 7:44 AM CDT Rx sent. Patient informed tn * Bettie Butt - 11/25/2023 7:02 AM CDT Patient received her antibiotics for a UTI last week and now has a yeast infection from them. Wouldlike something for a yeast infection sent in to [facility]. documented in this encounter Plan of Treatment Not on file documented as of this encounter Visit Diagnoses Diagnosis Antibiotic-induced yeast infection- Primary documented in this encounter Additional Health Concerns Assessment Noted Time PHQ-9 Depression Total Score: 8 05/31/19 24 10:12 AM WIRING INSPECTOR documented as of this encounter Care Teams Bus Cleaner Relationship Specialty Start Date End Date Cuca Dutton FNP [address] [place] [address] PCP - General Nurse Practitioner Family 05/04/18 documented as of this encounter
--- OUTSIDE RECORDS SUMMARY | 2024-03-25 18:36 | XMS_ITS | Encounter Summary ---
Author Organization [facility] Address [facility]. [place], [place] [address] [place] [address] Care Team Providers Care Humid System Operator Name Role Phone Cuca Dutton Primary Care Provider [phone] Encounter Details Date Type Department Care Team (Late st Contact Info) Description 11/16/2021 Orders Only [facility] Medical Group Family & Internal Medicine - [place] [address] [place] [address] Cuca Dutton FNP [address] [place] [address] Social History Tobacco Use Types Packs/Day Years [...] as of this encounter Progress Notes * CAROLYN Martin - 11/16/2021 1:37 PM CDT Medication refill sent to pharmacy documented in this encounter Plan of Treatment Not on file documented as of this encounter Visit Diagnoses Diagnosis Attention deficit hyperactivity disorder (ADHD), combined type documented in this encounter Additional Health Concerns Assessment Noted Time PHQ-9 Depression Total Score: 3 12/04/19 21 7:29 AM CDT documented as of this encounter Care Teams Humid System Operator Relationship Specialty Start Date End Date Cuca Dutton FNP [address] [place] [address] PCP - General Nurse Practitioner Family 05/04/18 documented as of this encounter
--- OUTSIDE RECORDS SUMMARY | 2024-03-25 18:36 | XMS_ITS | Encounter Summary ---
Author Organization [facility] Address [address] [place] [address]. [place], [place] [address] [place] [address] Care Team Providers Care Men'S Golf Coach Name Role Phone Cuca Dutton CAROLYN Primary Care Provider [phone] Reason for Visit * Reason Comments Allied Health Visit Encounter Details Date Type Department Care Team (Latest Contact Info) Description 09/10/2020 1:20 PM CDT Allied Health/Nurse Visit [facility] Medical Group Family & Internal Medicine [address] [phone] Allied Health Visit Social History Tobacco Use Types Packs/Day Years [...] Progress Notes * Joie Tran MA - 09/10/2020 1:20 PM CDT t documented in this encounter Plan of Treatment Not on file documented as of this encounter Procedures Procedure Name Priority Date/Time Associated Diagnosis Comments TB INTRADERMAL TEST (BACK OFFICE) Routine 09/10/2020 1:31 PM CDT School physical exam documented in this encounter Results * TB INTRADERMAL TEST (BACK OFFICE) (09/10/2020 1:31 PM CDT) PPD SKIN TEST read elsewhere NOT REQUIRED (NOT REQUIRED) 09/10/2020 1:31 PM CDT Cuca LEON MICROBIOLOGY - GENERAL ORDERAB LES Final Result documented in this encounter Visit Diagnoses Diagnosis School physical exam- Primary Health examination of defined subpopulation documented in this encounter Administered Medications Administered Medications Medication Order MAR Action Action Date Dose Rate Site Protein Derivative (Purified) Intradermal Given 09/10/2020 0.1 mL LEFT FOREARM documented in this encounter Additional Health Concerns Assessment Noted Time PHQ-9 Depression Total Score: 13 05/19/ 021 10:36 AM MENTAL HEALTH DIRECTOR documented as of this encounter Care Teams Men'S Golf Coach Relationship Specialty Start Date End Date Cuca Dutton FNP [address] [place] [address] PCP - General Nurse Practitioner Family 05/04/18 documented as of this encounter
--- OUTSIDE RECORDS SUMMARY | 2024-03-25 18:36 | XMS_ITS | Encounter Summary ---
Author Organization [facility] Address [address] [place] [address]. [place], [place] [address] [place] [address] Care Team Providers Care Senior Production Manager Name Role Phone Cuca Dutton Primary Care Provider [phone] Encounter Details Date Type Department Care Team (Latest Contact Info) Description 04/06/2021 Travel Social History Tobacco Use Types Packs/Day [...] COVID-19? No / Unsure 04/06/2021 9:58 AM SOIL ANALYST documented as of this encounter Plan of Treatment Not on file documented as of this encounter Visit Diagnoses Not on filedocumented in this encounter Additional Health Concerns Assessment Noted Time PHQ-9 Depression Total Score: 3 12/04/19 21 7:29 AM CDT documented as of this encounter Care Teams Senior Production Manager Relationship Specialty Start Date End Date Cuca Dutton FNP [address] [place] [address] PCP - General Nurse Practitioner Family 05/04/18 documented as of this encounter
--- OUTSIDE RECORDS SUMMARY | 2024-03-25 18:36 | XMS_ITS | Encounter Summary ---
Author Organization [facility] Address [address] [place] [address]. [place], [place] [address] [place] [address] Care Team Providers Care Billing Administrator Name Role Phone Cuca Dutton Primary Care Provider [phone] Encounter Details Date Type Department Care Team (Latest Contact Info) Description 08/28/2020 Travel Social History Tobacco Use Types Packs/Day [...] Depression Total Score: 13 021 10:36 AM MONUMENTAL STONEMASON documented as of this encounter Care Teams Billing Administrator Relationship Specialty Start Date End Date Cuca Dutton FNP [address] [place] [address] PCP - General Nurse Practitioner Family 05/04/18 documented as of this encounter
--- OUTSIDE RECORDS SUMMARY | 2024-03-25 18:36 | XMS_ITS | Encounter Summary ---
Author Organization [facility] Address [address] [place] [address]. [place], [place] [address] [place] [address] Care Team Providers Care Computer Video Game Designer Name Role Phone Cuca Dutton Primary Care Provider [phone] Encounter Details Date Type Department Care Team (Latest Contact Info) Description 09/16/2020 Travel Social History Tobacco Use Types Packs/Day [...] have Coronavirus / COVID-19? No / Unsure 09/16/2020 2:28 PM CDT documented as of this encounter Plan of Treatment Not on file documented as of this encounter Visit Diagnoses Not on filedocumented in this encounter Additional Health Concerns Assessment Noted Time PHQ-9 Depression Total Score: 13 021 10:36 AM SPRAY BOOTH OPERATOR documented as of this encounter Care Teams Computer Video Game Designer Relationship Specialty Start Date End Date Cuca Dutton FNP [address] [place] [address] PCP - General Nurse Practitioner Family 05/04/18 documented as of this encounter
--- OUTSIDE RECORDS SUMMARY | 2024-03-25 18:36 | XMS_ITS | Encounter Summary ---
Author Organization [facility] Address [address] [place] [address]. [place], [place] [address] [place] [address] Care Team Providers Care Advisor To Command In Combat Name Role Phone Cuca Dutton CAROLYN Primary Care Provider [phone] Reason for Visit * Reason Comments Tuberculosis tb screening Encounter Details Date Type Department Care Team (Latest Contact Info) Description 09/18/2020 1:40 PM CDT Allied Health/Nurse Visit [facility] Medical Group Family & Internal Medicine [address] [phone] Tuberculosis (tb screening) Social History Tobacco Use Types Packs/Day Years [...] Depression Total Score: 13 021 10:36 AM FLIGHT CONTROLS ENGINEER documented as of this encounter Care Teams Advisor To Command In Combat Relationship Specialty Start Date End Date Cuca Dutton FNP [address] [place] [address] PCP - General Nurse Practitioner Family 05/04/18 documented as of this encounter
--- OUTSIDE RECORDS SUMMARY | 2024-03-25 18:36 | XMS_ITS | Encounter Summary ---
Author Organization [facility] Address [address] [place] [address]. [place], [place] [address] [place] [address] Care Team Providers Care Sales Order Clerk Name Role Phone Cuca Dutton Primary Care Provider [phone] Reason for Visit * Reason Onset Date Comments Results 04/06/2021 Encounter Details Date Type Department Care Team (Late st Contact Info) Description 04/06/2021 Telephone [facility] Medical Group Family & Internal Medicine [place] [address] [place] [address] Cuca Dutton FNP [facility] [place] [address] Results Social History Tobacco Use [...] COVID-19? No / Unsure 04/06/2021 9:58 AM CORPORATE TRAVEL AGENT documented as of this encounter Progress Notes * Norma Araujo MA - 04/14/2021 8:10 AM CST This result has been viewed on mychart. ORATE TRAVEL AGENT * Norma Araujo MA - 04/08/2021 11:19 AM CST Lm 04/08/21 tn ORATE TRAVEL AGENT * Norma Araujo MA - 04/06/2021 1:04 PM CST ----- Message from CAROLYN Martin sent at 04/06/2021 12:46 PM CORPORATE TRAVEL AGENT ----- Normal chest x ray ORATE TRAVEL AGENT documented in this encounter Plan of Treatment Not on file documented as of this encounter Visit Diagnoses Not on filedocumented in this encounter Additional Health Concerns Assessment Noted Time PHQ-9 Depression Total Score: 3 12/04/19 21 7:29 AM CDT documented as of this encounter Care Teams Sales Order Clerk Relationship Specialty Start Date End Date Cuca Dutton FNP [address] [place] [address] PCP - General Nurse Practitioner Family 05/04/18 documented as of this encounter
--- OUTSIDE RECORDS SUMMARY | 2024-03-25 18:36 | XMS_ITS | Encounter Summary ---
Author Organization [facility] Address [address] [place] [address]. [address] [address] Care Team Providers Care Powder Guard Name Role Phone Cuca Dutton Primary Care Provider [phone] Reason for Visit * Reason Onset Date Comments Medication 01/26/2022 Encounter Details Date Type Department Care Team (Late st Contact Info) Description 01/26/2022 Telephone [facility] Family & Internal Medicine [address] [place] [address] Cuca Dutton FNP [address] [place] [address] Medication Social History Tobacco Use Types Packs/Day [...] encounter Progress Notes * CAROLYN Martin - 01/26/2022 12:28 PM CDT Yes I agree with this. * Montserrat Herron - 01/26/2022 10:34 AM CDT Patient's mom calling in because she was involuntarily admitted to [facility] and they think due to abusing vyvanse. Mom is asking we don't refill that medication for her unless she is seen by us first. documented in this encounter Plan of Treatment Not on file documented as of this encounter Visit Diagnoses Not on filedocumented in this encounter Additional Health Concerns Assessment Noted Time PHQ-9 Depression Total Score: 4 11/24/19 22 11:18 AM CDT documented as of this encounter Care Teams Powder Guard Relationship Specialty Start Date End Date Cuca Dutton FNP [address] [place] [address] PCP - General Nurse Practitioner Family 05/04/18 documented as of this encounter
--- OUTSIDE RECORDS SUMMARY | 2024-03-25 18:36 | XMS_ITS | Encounter Summary ---
Author Organization [facility] Address [address] [place] [address]. [place], [place] [address] [place] [address] Care Team Providers Care Process Safety Engineering Technologist Name Role Phone Cuca Dutton Primary Care Provider Encounter Details Date Type Department Care Team (Latest Contact Info) Description 07/30/2021 Scan [facility] Scanned, Documents [...] documented as of this encounter Care Teams Process Safety Engineering Technologist Relationship Specialty Start Date End Date Cuca Dutton FNP [address] [place] [address] PCP - General Nurse Practitioner Family 05/04/18 documented as of this encounter
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
--- OUTSIDE RECORDS SUMMARY | 2024-03-25 18:36 | XMS_ITS | Encounter Summary ---
Author Organization [facility] Address [address] [place] [address]. [place], [place] [address] [place] [address] Care Team Providers Care Middle School French Teacher Name Role Phone Cuca Dutton Primary Care Provider [phone] Reason for Visit * Reason Onset Date Comments Vaginal Problem 12/16/2020 Encounter Details Date Type Department Care Team (Late st Contact Info) Description 12/16/2020 Telephone [facility] Family & Internal Medicine [facility] [address] [place] [address] Cuca Dutton FNP [address] [place] [address] Vaginal Problem Social History Tobacco [...] Progress Notes * Norma Araujo MA - 12/16/2020 3:43 PM CDT Patient contacted, rx sent tn * MYRIAM Diamond - 12/16/2020 3:28 PM CDT I filled for 2 tablets. If she continues to get these, she may need to follow up with her PCP for further testing * Montserrat Herron - 12/16/2020 11:25 AM CDT Patient calling in with another yeast infection. She is having itching and some discharge. She getsthese frequently. Asking if we can call in like 4 pills or some larger dose since she gets these like once a Month. documented in this encounter Plan of Treatment Not on file documented as of this encounter Visit Diagnoses Diagnosis Yeast infection- Primary Other and unspecified mycoses documented in this encounter Additional Health Concerns Assessment Noted Time PHQ-9 Depression Total Score: 3 12/04/19 21 7:29 AM CDT documented as of this encounter Care Teams Middle [employer] French Teacher Relationship Specialty Start Date End Date Cuca Dutton FNP [address] [place] [address] PCP - General Nurse Practitioner Family 05/04/18 documented as of this encounter
--- OUTSIDE RECORDS SUMMARY | 2024-03-25 18:36 | XMS_ITS | Encounter Summary ---
Author Organization [facility] Address [address] [place] [address]. [place], [place] [id number] [place] [address] Care Team Providers Care Terrazzo Roller Name Role Phone Cuca Dutton Primary Care Provider [phone] Encounter Details Date Type Department Care Team (Latest Contact Info) Description 09/05/2020 Travel Social History Tobacco Use Types Packs/Day [...] Depression Total Score: 13 021 10:36 AM PERSONALIZED LIVING ASSISTANT documented as of this encounter Care Teams Terrazzo Roller Relationship Specialty Start Date End Date Cuca Dutton FNP [address] [place] [address] PCP - General Nurse Practitioner Family 05/04/18 documented as of this encounter
--- OUTSIDE RECORDS SUMMARY | 2024-03-25 18:36 | XMS_ITS | Encounter Summary ---
Author Organization [facility] Address [address] [place] [address]. [place], [place] [address] [place] [address] Care Team Providers Care Sound Technician Supervisor Name Role Phone Cuca Dutton CAROLYN Primary Care Provider [phone] Reason for Visit * Reason Comments Allied Health Visit PPD skin test Encounter Details Date Type Department Care Team (Latest Contact Info) Description 09/02/2020 10:00 AM CDT Allied Health/Nurse Visit [facility] Family & Internal Medicine [address] [phone] Allied Health Visit (PPD skin test) Social History Tobacco Use Types Packs/Day Years [...] Comments TB INTRADERMAL TEST (BACK OFFICE) Routine 09/02/2020 9:47 AM CDT Screening for tuberculosis documented in this encounter Results * TB INTRADERMAL TEST (BACK OFFICE) (09/02/2020 9:47 AM CDT) MM INDURATION 0mm PPD SKIN TEST NEGATIVE NOT REQUIRED (NOT REQUIRED) 09/02/2020 9:47 AM CDT Cuca LEON MICROBIOLOGY - GENERAL ORDERAB LES Final Result documented in this encounter Visit Diagnoses Diagnosis Screening for tuberculosis- Primary Screening examination for pulmonary tuberculosis documented in this encounter Administered Medications Administered Medications Medication Order MAR Action Action Date Dose Rate Site Protein Derivative (Purified) Intradermal Given 09/02/2020 09:53 CDT 0.1 mL LEFT FORE ARM documented in this encounter Additional Health Concerns Assessment Noted Time PHQ-9 Depression Total Score: 13 05/19/ 021 10:36 AM TOOL CRIB LEAD documented as of this encounter Care Teams Sound Technician Supervisor Relationship Specialty Start Date End Date Cuca Dutton FNP [address] [place] [address] PCP - General Nurse Practitioner Family 05/04/18 documented as of this encounter
--- OUTSIDE RECORDS SUMMARY | 2024-03-25 18:36 | XMS_ITS | Encounter Summary ---
Author Organization [facility] Address [address] [place] [address]. [place], [place] [address] [place] [address] Care Team Providers Care Kier Operator Name Role Phone Antonio Nicholson Primary Care Provider [phone] Reason for Visit * Reason Onset Date Comments Appointment Reminder 10/16/2021 Encounter Details Date Type Department Care Team (Late st Contact Info) Description 10/16/2021 Telephone [facility] Family & Internal Medicine [facility] [address] [place] [address] Antonio Nicholson FNP [address] [place] [address] Appointment Reminder Social History Tobacco Use Types Packs/Day Years [...] Progress Notes * Joie Tran MA - 10/16/2021 4:12 PM CDT Pt has an appt 11/23/2021 at 10:20am BB 10/16/2021 * MYRIAM Diamond - 10/16/2021 3:07 PM CDT She needs to be seen. Will fill this time. * Emily Eason MA - 10/16/2021 1:14 PM CDT Refill request received from Pharmacy Last visit with ANTONIO NICHOLSON in FAMILY [facility]ACTICE was on: 04/06/2021 in [facility] No future appointments. Ring #[id number] - [facility] [address] AT [facility] [address] [facility] [id number] Current Outpatient Medications: ??? albuterol sulfate HFA 108 (90 Base) MCG/ACT inhaler, Inhale 2 puffs into the lungs every 4 (four) hours as needed., Disp: , Rfl: ??? fluconazole (DIFLUCAN) 150 MG tablet, Take one tablet now and may repeat in 72 hours, Disp: 2 tablet, Rfl: 0 ??? fluconazole 150 MG tablet, Take one tablet now and you may repeat one tablet 72 hours for continued symptoms, Disp: 2 tablet, Rfl: 1 ??? levonorgestrel (MIRENA, 52 MG,) 20 MCG/24HR IUD, 1 Intra Uterine Device by Intrauterine route once., Disp: , Rfl: ??? lisdexamfetamine (VYVANSE) 40 MG capsule, Take 1 capsule (40 mg total) by mouth every morning.,Disp: 30 capsule, Rfl: 0 ??? Probiotic Product (PROBIOTIC ADVANCED) Cap, , Disp: , Rfl: ??? venlafaxine XR 75 MG 24 hr capsule, Take 1 capsule (75 mg total) by mouth daily., Disp: 90 capsule, Rfl: 1 * Griselda Lucas - 10/16/2021 11:14 AM CDT Needs refill on vyvanse 40 mg, venlafixe XR 75 mg. She also needs a script for yeast infection. documented in this encounter Plan of Treatment Not on file documented as of this encounter Visit Diagnoses Diagnosis Yeast infection Other and unspecified mycoses Moderate episode of recurrent major depressive disorder ([facility]) Attention deficit hyperactivity disorder (ADHD), combined type documented in this encounter Additional Health Concerns Assessment Noted Time PHQ-9 Depression Total Score: 3 12/04/19 21 7:29 AM CDT documented as of this encounter Care Teams Kier Operator Relationship Specialty Start Date End Date Antonio Nicholson FNP [address] [place] [address] PCP - General Nurse Practitioner Family 05/04/18 documented as of this encounter
--- OUTSIDE RECORDS SUMMARY | 2024-03-25 18:36 | XMS_ITS | Encounter Summary ---
Author Organization [facility] Address [address] [place] [address]. [place], [place] [id number] [place] [address] Care Team Providers Care Production Operator Name Role Phone Cuca Dutton Primary Care Provider [phone] Encounter Details Date Type Department Care Team (Latest Contact Info) Description 05/31/2023 Travel Social History Tobacco Use Types Packs/Day [...] Total Score: 8 05/31/19 24 10:12 AM MARSHMALLOW MAKER documented as of this encounter Care Teams Production Operator Relationship Specialty Start Date End Date Cuca Dutton FNP [address] [place] [address] PCP - General Nurse Practitioner Family 05/04/18 documented as of this encounter
--- OUTSIDE RECORDS SUMMARY | 2024-03-25 18:36 | XMS_ITS | Encounter Summary ---
Author Organization [facility] Address [address] [place] [address]. [place], [place] [address] [place] [address] Care Team Providers Care Garment Patternmaker Name Role Phone Cuca Dutton Primary Care Provider [phone] Encounter Details Date Type Department Care Team (Late st Contact Info) Description 12/11/[address] [facility] Family & Internal Medicine - [place] [address] [place] [address] Cuca Dutton FNP [address] [place] [address] Social History Tobacco Use Types Packs/Day Years [...] encounter Progress Notes * CAROLYN Martin - 12/11/2021 1:37 PM CDT Medication refill sent to her pharmacy documented in this encounter Plan of Treatment Not on file documented as of this encounter Visit Diagnoses Diagnosis Attention deficit hyperactivity disorder (ADHD), combined type documented in this encounter Additional Health Concerns Assessment Noted Time PHQ-9 Depression Total Score: 4 11/24/19 22 11:18 AM CDT documented as of this encounter Care Teams Garment Patternmaker Relationship Specialty Start Date End Date Cuca Dutton FNP [address] [place] [address] PCP - General Nurse Practitioner Family 05/04/18 documented as of this encounter
--- OUTSIDE RECORDS SUMMARY | 2024-03-25 18:37 | XMS_ITS | Encounter Summary ---
Author Organization [facility] Address [address] [place] [address]. [place], [place] [address] [place] [address] Care Team Providers Care Horse Breaker Name Role Phone Cuca Dutton Primary Care Provider [phone] Reason for Visit * Reason Onset Date Comments Lab Results 06/23/2018 Encounter Details Date Type Department Care Team (Late st Contact Info) Description 06/23/2018 Telephone [facility] Medical Group Family & Internal Medicine [place] [address] [place] [address] Cuca Dutton FNP [address] [place] [address] Lab Results Social History Tobacco [...] Progress Notes * Norma Araujo MA - 06/28/2018 11:21 AM CDT Patient informed of normal results and to continue medications and plan of care as discussed tn * Corry Degroot RN - 06/27/2018 10:46 AM CDT LMTC and letter printed. 06/27/18 * Corry Degroot RN - 06/26/2018 11:42 AM CDT LMTC 06/26/18 * Norma Araujo MA - 06/23/2018 4:20 PM CDT Lm 06/23/18 tn * Norma Araujo MA - 06/23/2018 4:19 PM CDT ----- Message from CAROLYN Martin sent at 06/23/2018 4:15 PM CDT ----- Stephanie's labs are within normal limits. Continue medications and plan of care as we discussed. documented in this encounter Plan of Treatment Not on file documented as of this encounter Visit Diagnoses Not on filedocumented in this encounter Care Teams Horse Breaker Relationship Specialty Start Date End Date Cuca Dutton FNP [address] [place] [address] PCP - General Nurse Practitioner Family 05/04/18 documented as of this encounter
--- OUTSIDE RECORDS SUMMARY | 2024-03-25 18:37 | XMS_ITS | Encounter Summary ---
Author Organization [facility] Address [facility]. [place], [place] [address] [place] [address] Care Team Providers Care Childrens Club Attendant Name Role Phone Cuca Dutton Primary Care Provider [phone] Encounter Details Date Type Department Care Team (Late st Contact Info) Description 05/12/2018 Orders Only [facility] Medical Group Family & Internal Medicine - [place] [address] [place] [address] Cuca Dutton FNP [address] [place] [address] Social History Tobacco Use Types Packs/Day Years Used Date Smoking Tobacco: Never Assessed Comments No Sex and Gender Information Value Date Recorded Sex Assigned at Not on file Legal Sex Female 8:44 PM CDT Gender Identity Not on file Sexual Orientation Not on file documented as of this encounter Progress Notes * CAROLYN Martin - 05/12/2018 1:11 PM CST Tests were negative for trichamonis, gonorrhea and chlamydia ECRAFT TEACHER documented in this encounter Plan of Treatment Not on file documented as of this encounter Procedures Procedure Name Priority Date/Time Associated Diagnosis Comments CHLAM/GC/TRICHOMONA S PROFILE Routine 05/08/2018 3:22 PM STAGECRAFT TEACHER documented in this encounter Results * CHLAM/GC/TRICHOMONAS PROFILE (05/08/2018 3:22 PM STAGECRAFT TEACHER) CHLAMYDIA TRACHOMATIS RNA TMA NOT DETECTED NOT DETECTED [facility] N.GONORRHOEAE RNA TMA (QST) NOT DETECTED NOT DETECTED [facility] COMMENT: [facility] Comment: This test was performed using the APTIMA COMBO2 Assay ([employer] The analytical performance characteristics of this assay, when used to test SurePath specimens have been determined by [employer]. ?? TRICHOMONAS NOT DETECTED NOT DETECTED [facility] Comment: This test was performed using the APTIMA(R) Trichomonas vaginalis assay ([employer](R)). For more information on this test, go to: http://education.Emulate/faq/Trichomonastma NO COLLECTION DATE RECEIVED. WE HAVE USED THE DATE THE SPECIMEN WAS RECEIVED BY THIS LABORATORY THE COLLECTION DATE. IF THIS IS INCORRECT, PLEASE CONTACT CLIENT SERVICES. PHONE NUMBER: [phone] 05/08/2018 3:22 PM STAGECRAFT TEACHER 05/09/2018 7:00 AM STAGECRAFT TEACHER Narrative [facility] - 05/11/2018 4:49 PM STAGECRAFT TEACHER FASTING: UNKNOWN Resulting Agency Comment Performing Organization Information: ?Site ID: [place] ?Name: Deepti Barnes ?Address: [address] [place] [address] ?Director: Billy Ang D.O., MPH [facility] Final Result [facility] documented in this encounter Visit Diagnoses Not on filedocumented in this encounter Care Teams Childrens Club Attendant Relationship Specialty Start Date End Date Cuca Dutton FNP [address] [place] [address] PCP - General Nurse Practitioner Family 05/04/18 documented as of this encounter
--- OUTSIDE RECORDS SUMMARY | 2024-03-25 18:37 | XMS_ITS | Encounter Summary ---
Author Organization [facility] Address [address] [place] [address]. [place], [place] [address] [place] [address] Care Team Providers Care Dermatology Nurse Name Role Phone Cuca Dutton Primary Care Provider Reason for Visit * Reason Onset Date Comments TCM 09/08/2018 Encounter Details Date Type Department Care Team (Late st Contact Info) Description 09/08/2018 Telephone [facility] Family & Internal Medicine [facility] [address] [place] [address] Cuca Dutton FNP [address] [place], [place] [phone] TCM Social History Tobacco Use Types Packs/Day Years [...] as of this encounter Progress Notes * Lydia Gonzalez RRT - 09/11/2018 3:27 PM CDT LMTC and scheduled TCM * Corry Degroot RN - 09/08/2018 9:50 AM CDT Unable to leave message with patient or patient's mother. Will need TCM done if she is out of the hospital. documented in this encounter Plan of Treatment Not on file documented as of this encounter Visit Diagnoses Not on filedocumented in this encounter Care Teams Dermatology Nurse Relationship Specialty Start Date End Date Cuca Dutton FNP [address] [place] [address] PCP - General Nurse Practitioner Family 05/04/18 documented as of this encounter
--- OUTSIDE RECORDS SUMMARY | 2024-03-25 18:37 | XMS_ITS | Encounter Summary ---
Author Organization [facility] Address [address] [place] [address]. [place], [place] [address] [place] [address] Care Team Providers Care Theatrical Scenic Designer Name Role Phone Cuca Dutton Primary Care Provider [phone] Reason for Visit * Reason Onset Date Comments Results 11/16/2019 Encounter Details Date Type Department Care Team (Late st Contact Info) Description 11/16/2019 Telephone [facility] Family & Internal Medicine [facility] [place] [facility] [address] [place] [address] Cuca Dutton FNP [address] [place], [place] [phone] Results Social History Tobacco Use Types Packs/Day [...] have Coronavirus / COVID-19? No / Unsure 11/08/2019 9:25 AM CDT documented as of this encounter Progress Notes * Corry Degroot RN - 11/16/2019 2:54 PM CDT Spoke to patient; verbalized understanding. * CAROLYN Martin - 11/16/2019 12:14 PM CDT Yes just let her know about the others please. * Corry Degroot RN - 11/16/2019 12:12 PM CDT This is a send out and can be over a week before results come in. * Corry Degroot RN - 11/16/2019 11:59 AM CDT ----- Message from CAROLYN Martin sent at 11/16/2019 11:35 AM CDT ----- We are still waiting on vaginitis panel but all other STI testing was normal (negative). It has been over a week and I dont' want her to wait any longer for these results. Thank you documented in this encounter Plan of Treatment Not on file documented as of this encounter Visit Diagnoses Not on filedocumented in this encounter Care Teams Theatrical Scenic Designer Relationship Specialty Start Date End Date Cuca Dutton FNP [address] [place] [address] PCP - General Nurse Practitioner Family 05/04/18 documented as of this encounter
--- OUTSIDE RECORDS SUMMARY | 2024-03-25 18:37 | XMS_ITS | Encounter Summary ---
Author Organization [facility] Address [address] [place] [address]. [place], [place] [id number] [place] [id number] Care Team Providers Care Director Radiation Oncology Name Role Phone Cuca Dutton Primary Care Provider [phone] Reason for Visit * Reason Comments Skin Problem sores in vaginal are a Encounter Details Date Type Department Care Team (Late st Contact Info) Description 11/15/2018 8:40 AM CDT Office Visit [facility] Family & Internal Medicine [facility] [address] [place] [address] Cuca Dutton FNP [address] [place], [place] [id number] Skin Problem (sores in vaginal area) Social History Tobacco Use Types Packs/Day [...] Sign Reading Time Taken Comments Blood Pressure 104/73 11/15/2018 8:49 AM CDT Pulse 78 11/15/2018 8:49 AM CDT Temperature - - Respiratory Rate 16 11/15/2018 8:49 AM CDT Oxygen Saturation 99% 11/15/2018 8:49 AM CDT Inhaled Oxygen Concentration - - Weight 59 kg (130 lb) 11/15/2018 8:49 AM CDT Height 162.6 cm (5' 4 ) 11/15/2018 8:49 AM CDT Body Mass Index 22.31 11/15/2018 8:49 AM CDT Body Mass Index Percentile 60.08% 11/15/2018 8:4 9 AM CDT Growth Chart: [facility] (Girls, 2- 20 Years) documented in this encounter Patient Instructions * Patient Instructions* Cuca DuttonCAROLYN - 11/15/2018 8:40 AM CDT Images from the original note were not included. Take medications as directed and prescribed Make sure you eat while taking the antibiotic to prevent stomach upset. We did give you an antibiotic shot of rocephin today. We will call you with your lab results when we get them back. Abstain from sexually activity until done with treatment and a retest if needed If you have any positive testing, the health department will call you for a follow up and to make sure your sexual partners are notified to get treatment. This is only if your testing is positive. Call for any questions or concerns. Follow up when your antibiotics are complete for a retest but only if testing is positive. Patient Education Patient Education Syphilis Discharge Instructions About this topic Syphilis is an infection you can catch during sex. This means it is a sexually- transmitted disease (STD). It is caused by a germ. The first sign of infection is a small, painless red bump. It may be seen in the genital area, on the lips, mouth, or anus. Then, this turns into a small sore. You can get infected by direct contact with the sore. If you are infected with syphilis, you may also pass iton to your baby during . There are many stages of syphilis. If you are not treated, you will continue to have syphilis. ?? Early stages ? One or more red bumps may appear. They may form an ulcer or open sore. These do not cause pain and often heal on their own. Sometimes, syphilis does not cause any signs. You may noteven notice the sore or bump. You may not even know that you are infected. If you are not treated, you will move to the next stages. ?? Secondary stages ? Cornelia or red rashes on your body that do not itch. You may also have a sore throat and swollen glands. Some people complain of headaches and other flu-like signs. These signs maygo away on their own. Without treatment, you will progress to the next stages. ?? Latent stages ? This is a hidden stage where signs from earlier stages end. This stage can last for many years and the person may have no signs of syphilis, but still has the infection in his or her body. This is why it is so important to complete your entire treatment and follow-up with your doctor after treatment. ?? Late stages ? You may develop serious health problems. There may be damage to your brain and nerves. Your eyes, heart, and blood vessels may be damaged. So can your liver, bones, and joints. All stages of syphilis can be treated with antibiotics. It is important that you take the antibiotics correctly and finish your treatment. If it is not treated, syphilis may cause long-lasting damageor . What care is needed at home? ?? Ask your doctor what you need to do when you go home. Make sure you ask questions if you do not understand what the doctor says. This way you will know what you need to do. ?? Tell your sex partner(s) or those whom you had sex with in the past 3 to 6 months to get tested.They may need treatment as well. Do not have sex with them until they have completed treatment. ?? Always use a condom during sex. ?? Avoid sharing sex toys. If you share toys, disinfect them and cover them with a condom before use. ?? Do not touch or scratch the sore. This may spread the infection to other parts of your body. What follow-up care is needed? ?? Your doctor may ask you to make visits to the office to check on your progress. Be sure to keep these visits. Keep these visits even if you do not have any signs. ?? You will need to have a blood test a few months after your treatment to check if the infection is gone. What drugs may be needed? The doctor will order drugs to treat infection. Take all drugs as directed by your doctor. Tell thedoctor if you have an allergy to the drug. Will physical activity be limited? ?? Physical activity may not be limited. ?? Do not have sex until you have completed the treatment and the doctor has told you it is safe todo so. What problems could happen? ?? Risk of getting human immunodeficiency virus (HIV) or other STDs ?? Heart problems ?? Brain and spinal infections ?? Muscle weakness and abnormal sensations ?? Passing the infection to others ?? Syphilis during may cause: ? Miscarriage ? Premature baby ? Your baby may develop serious problems ? A baby born (stillbirth) What can be done to prevent this health problem? ?? The only sure way to keep from getting or passing on a sexually-transmitted infection is to not have sexual contact with anyone. This infection may be spread even if you do not have any signs of illness. ?? Avoid contact with any sex partner known to have the infection. ?? If you have sex, use latex condoms to reduce spread of infection. ?? Avoid multiple sex partners. Be in a monogamous relationship with a partner who has been tested,is known to have no infection, and only has sex with you. ?? If you are , get tested and receive prompt treatment for a syphilis infection. This willhelp avoid passing it to your baby. ?? Get a regular check-up for STDs. When do I need to call the doctor? ?? Signs of a very bad reaction. These include wheezing; chest tightness; fever; itching; bad cough; blue skin color; seizures; or swelling of face, lips, tongue, or throat. Go to the ER right away. ?? Signs of infection. These include a fever of 100.4??F (38??C) or higher, chills, very bad sore throat, pain with passing urine, mouth sores, a wound that will not heal, or anal itching or pain. ?? Signs of wound infection. These include swelling, redness, warmth around the wound; too much pain when touched; yellowish, greenish, or bloody discharge; foul smell coming from the wound; wound opens up. ?? You are not feeling better in 2 to 3 days or you are feeling worse Teach Back: Helping You Understand The Teach Back Method helps you understand the information we are giving you. The idea is simple. After talking with the staff, tell them in your own words what you were just told. This helps to makesure the staff has covered each thing clearly. It also helps to explain things that may have been abit confusing. Before going home, make sure you are able to do these: ?? I can tell you about my condition. ?? I can tell you what I can do to help avoid passing the infection to others. ?? I can tell you what I will do if I have a small red bump or open sore again. ?? I can tell you what I will do if I have a fever, pain with passing urine, or drainage from a wound, especially on my genitals. Where can I learn more? Centers for Disease Control and Prevention http://www.cdc.gov/std/syphilis/stdfact-syphilis.htm FamilyDoctor.org http://familydoctor.org/familydoctor/en/diseases-conditions/syphilis.printerview .all.html National Organization for Rare Diseases http://www.rarediseases.org/fxbt-bpojwxs-qvfleaiysiv/rare-diseases/byID/842/view Abstract National Organization for Rare Diseases http://www.rarediseases.org/xmwg-vysgtfi-rcuoozfbjqd/rare-diseases/byID/841/view Abstract NHS Choices http://www.nhs.uk/Conditions/Syphilis/Pages/Introduction.aspx Last Reviewed Date 2016-11-01 Consumer Information Use and Disclaimer This information [...] is right for you. Copyright Copyright ?? 2019 [employer] and its affiliates and/or licensors. All rights reserved. Patient Education Patient Education Sexually-Transmitted Diseases and About this topic Sexually-transmitted diseases are often called STDs. STDs are diseases you get from having sex withan infected person. You may get STDs if you have vaginal, oral, or anal sex without proper protection. Women can get STDs even when . Being does not protect you or your baby from STDs. You may not know you have an STD until you are . Some STDs that you can get even when are: ?? Human immunodeficiency virus (HIV) ?? Genital herpes ?? Genital warts or human papillomavirus (HPV) ?? Hepatitis B or C ?? Chlamydia ?? Gonorrhea ?? Syphilis ?? Bacterial vaginosis ?? Trichomoniasis General You and your baby may have problems from an STD. Your baby may have problems like: ?? Low- weight and a weak immune system ?? Blindness ?? before being born. This is a stillbirth. ?? Growth and development problems ?? Hepatitis B carrier for life ?? HIV infection for life ?? Infections in the lungs, blood, brain, or liver ?? Brain and nerve damage ?? Hepatitis, cirrhosis, or chronic liver disease ?? Warts in the throat ?? Mental or physical problems An STD while you are may cause problems for you like: ?? Failed or miscarriage ?? Premature labor or your water may break early ?? Cervical cancer ?? Fetus can embed outside the womb. This is an ectopic . ?? Long-term liver problems like chronic hepatitis and cirrhosis ?? The need for a because of warts in your vaginal area ?? Not being able to have children again What lifestyle changes are needed? ?? Your doctor will test you for STDs during your first visit. If the test shows you have an STD, your doctor will give you drugs to treat the STD. ?? Your doctor will test you again 3 weeks after treatment. ?? During your third trimester, your doctor may test you again. This often happens if you are younger than 25 years old or at high risk for Chlamydia. What drugs may be needed? The doctor may order drugs to: ?? Kill the germs ?? Keep you and your baby healthy ?? Help with itchiness Will there be any other care needed? ?? Tell your sex partner or anyone you have had sex with in the past 3 to 6 months to get tested. Your sex partners may need treatment as well. ?? Go to your check-ups. Try not to miss your doctor visits. ?? Tell your other doctors and dentist that you have an STD. What can be done to prevent this health problem? ?? The only sure way to keep from getting or passing on a sexually-transmitted infection is to not have sexual contact with any person. This infection may be spread even if you do not have any signs of illness. ?? Avoid contact with any sex partner known to have an infection. ?? If you have sex, use latex condoms each time to lower spread of infection. ?? Avoid multiple sex partners. Be in a long-term relationship with only one person who has been tested and is known to have no infection. ?? Get a regular check-up for STDs. When do I need to call the doctor? ?? Feeling of wetness in your genital area ?? Bloody, smelly, or green-colored vaginal discharge ?? Very bad belly pain or cramps ?? Fast heartbeat ?? Very bad vaginal itching ?? Upset stomach and throwing up Where can I learn more? [employer] http://www.americanpregnancy.org/pregnancycomplications/stdstiduringpregnancy.ht ml Centers for Disease Control and Prevention http://www.cdc.gov/std//STDFact-.htm Last Reviewed Date 2016-06-08 Consumer Information Use and Disclaimer This information [...] is right for you. Copyright Copyright ?? 2019 [employer] and its affiliates and/or licensors. All rights reserved. documented in this encounter Progress Notes * CAROLYN Martin - 11/15/2018 8:40 AM CDT Images from the original note were not included. Office Progress Note Reason for Visit: Skin Problem (sores in vaginal area) History of Present Illness: Stephanie presents to the office for c/o a painful lesion on her labia. She reports that she noticed the lesions about 5 days ago on her right labia that are tender to palpate. She reports that she had some canker sores in her mouth a couple days prior to the lesion showing up on her labia. She denies sexual activity since August this year. She states that she used a condom at that time. She denies any vaginal discharge at this time. ROS: Review of Systems Constitutional: Negative for chills, diaphoresis, fever, malaise/fatigue and weight loss. HENT: Negative for congestion, ear discharge, ear pain, hearing loss, nosebleeds, sinus pain, sore throat and tinnitus. Respiratory: Negative for cough, hemoptysis, sputum production, shortness of breath, wheezing and stridor. Genitourinary: Negative for dysuria, flank pain, frequency, hematuria and urgency. Musculoskeletal: Negative for back pain, falls, joint pain, myalgias and neck pain. Skin: Positive for rash. Neurological: Negative for dizziness, tingling, tremors, sensory change, speech change, focal weakness, seizures, loss of consciousness, weakness and headaches. Medications: Current Outpatient Medications on File Prior to Visit Medication Sig ??? fluoxetine 20 MG capsule Take 2 capsules (40 mg total) by mouth daily. No current facility-administered medications on file prior to visit. Allergies: Allergies Allergen Reactions ??? Sulfamethoxazole-Trimethoprim Unknown Medical History: History reviewed. No pertinent past medical history. Surgical History: Past Surgical History: Procedure Laterality Date ??? MYRINGOTOMY Social History: Social History Socioeconomic History ??? Marital status: Single Spouse name: Not on file ??? Number of children: Not on file ??? Years of education: Not on file ??? Highest education level: Not on file Occupational History ??? Not on file Social Needs ??? Financial resource strain: Not on file ??? Food insecurity: Worry: Not on file Inability: Not on file ??? Transportation needs: Medical: Not on file Non-medical: Not on file Tobacco Use ??? Smoking status: Never Smoker ??? Smokeless tobacco: Never Used Substance and Sexual Activity ??? Alcohol use: No Frequency: Never ??? Drug use: No ??? Sexual activity: No control/protection: Inserts Lifestyle ??? Physical activity: Days per week: Not on file Minutes per session: Not on file ??? Stress: Not on file Relationships ??? Social connections: Talks on phone: Not on file Gets together: Not on file Attends taoism service: Not on file Active member of club or organization: Not on file Attends meetings of clubs or organizations: Not on file Relationship status: Not on file ??? Intimate partner violence: Fear of current or ex partner: Not on file Emotionally abused: Not on file Physically abused: Not on file Forced sexual activity: Not on file Other Topics Concern ??? Not on file Social History Narrative ??? Not on file Family History: Family History Problem Relation Name Age of Onset ??? Diabetes Paternal Grandfather PE: Physical Exam Constitutional: She is oriented to person, place, and time. Vital signs are normal. She appears well-developed and well-nourished. She is cooperative. She does not have a sickly appearance. She does not appear ill. No distress. HENT: Head: Normocephalic and atraumatic. Mouth/Throat: Oropharynx is clear and moist and mucous membranes are normal. Eyes: Conjunctivae and lids are normal. Pulmonary/Chest: Effort normal. No accessory muscle usage. No respiratory distress. Genitourinary: Lymphadenopathy: She has no cervical adenopathy. Neurological: She is alert and oriented to person, place, and time. Coordination and gait normal. Skin: Rash noted. Psychiatric: Her speech is normal and behavior is normal. Judgment and thought content normal. Her mood appears anxious. Cognition and memory are normal. Filed Vitals: 11/15/18 0849 BP: 104/73 Pulse: 78 Resp: 16 SpO2: 99% Weight: 59 kg (130 lb) Height: 5' 4 (1.626 m) Diagnoses/Impression: 1. [place], syphilitic SYPHILIS/RPR/VDRL; QUAL HIV AG/AB, 4TH GEN W/RFX HSV 1&2 IGM WI RFX TO TITER HEPATITIS B SURFACE AG, EIA HEPATITIS C ANTIBODY CHLAMYDIA AND GC RNA TMA CULTURE VIRAL CULTURE, WOUND, W/GRAM STAIN VENIPUNC ARM DRAW 2. Primary syphilis doxycycline hyclate 100 MG capsule cefTRIAXone (ROCEPHIN) injection 1 g SYPHILIS/RPR/VDRL; QUAL HIV AG/AB, 4TH GEN W/RFX HSV 1&2 IGM WI RFX TO TITER HEPATITIS B SURFACE AG, EIA HEPATITIS C ANTIBODY CHLAMYDIA AND GC RNA TMA CULTURE VIRAL CULTURE, WOUND, W/GRAM STAIN VENIPUNC ARM DRAW 3. Exposure to sexually transmitted disease (STD) SYPHILIS/RPR/VDRL; QUAL HIV AG/AB, 4TH GEN W/RFX HSV 1&2 IGM WI RFX TO TITER HEPATITIS B SURFACE AG, EIA HEPATITIS C ANTIBODY CHLAMYDIA AND GC RNA TMA CULTURE VIRAL CULTURE, WOUND, W/GRAM STAIN VENIPUNC ARM DRAW Recommendations and Plan: 1. [place], syphilitic - SYPHILIS/RPR/VDRL; QUAL; Future - HIV AG/AB, 4TH GEN W/RFX; Future - HSV 1&2 IGM WI RFX TO TITER; Future - HEPATITIS B SURFACE AG, EIA; Future - HEPATITIS C ANTIBODY; Future - CHLAMYDIA AND GC RNA TMA; Future - CULTURE VIRAL; Future - CULTURE, WOUND, W/GRAM STAIN; Future - VENIPUNC ARM DRAW 2. Primary syphilis - doxycycline hyclate 100 MG capsule; Take 1 capsule (100 mg total) by mouth 2 (two) times daily for 14 days. Dispense: 28 capsule; Refill: 0 - cefTRIAXone (ROCEPHIN) injection 1 g - SYPHILIS/RPR/VDRL; QUAL; Future - HIV AG/AB, 4TH GEN W/RFX; Future - HSV 1&2 IGM WI RFX TO TITER; Future - HEPATITIS B SURFACE AG, EIA; Future - HEPATITIS C ANTIBODY; Future - CHLAMYDIA AND GC RNA TMA; Future - CULTURE VIRAL; Future - CULTURE, WOUND, W/GRAM STAIN; Future - VENIPUNC ARM DRAW 3. Exposure to sexually transmitted disease (STD) - SYPHILIS/RPR/VDRL; QUAL; Future - HIV AG/AB, 4TH GEN W/RFX; Future - HSV 1&2 IGM WI RFX TO TITER; Future - HEPATITIS B SURFACE AG, EIA; Future - HEPATITIS C ANTIBODY; Future - CHLAMYDIA AND GC RNA TMA; Future - CULTURE VIRAL; Future - CULTURE, WOUND, W/GRAM STAIN; Future - VENIPUNC ARM DRAW Orders Placed This Encounter ??? VENIPUNC ARM DRAW ??? SYPHILIS/RPR/VDRL; QUAL ??? HIV AG/AB, 4TH GEN W/RFX ([facility] ONLY) ? ? HSV 1&2 IGM WI RFX TO TITER ??? HEPATITIS B SURFACE AG, EIA ??? HEPATITIS C ANTIBODY ??? doxycycline hyclate 100 MG capsule ??? cefTRIAXone (ROCEPHIN) injection 1 g ??? CHLAMYDIA AND GC RNA TMA ??? CULTURE VIRAL ??? CULTURE, WOUND, W/GRAM STAIN Cannot display discharge medications since this is not an admission. PCP: CAROLYN VALENZUELA 11/15/2018 documented in this encounter Plan of Treatment Not on file documented as of this encounter Procedures Procedure Name Priority Date/Time Associated Diagnosis Comments VENIPUNC ARM DRAW Routine 11/15/2018 11:12 AM CDT [place], syphilitic Primary syphilis Exposure to sexually transmitted disease (STD) documented in this encounter Results * HSV 1&2 IGM WI RFX TO TITER (11/15/2018 9:39 AM CDT) HSV 1 IGM SCREEN Negative Negative 11/20/19 19 4:03 PM CDT [facility] HSV 2 IGM SCREEN Negative Negative 11/20/19 19 4:03 PM CDT [facility] Comment: The IFA procedure for measuring IgM antibodies to HSV 1 and HSV 2 detects both type-common and type-specific HSV antibodies. Thus, IgM reactivity to both HSV 1 and HSV 2 may represent crossreactive HSV antibodies rather than exposure to both HSV 1 and HSV 2. This test was developed and its analytical performance characteristics have been determined by [place]. It has not been cleared or approved by the FDA. This assay has been validated pursuant to the CLIA regulations and is used for clinical purposes. HSV 1 IGM TITER REPORT 9 4:03 PM CDT [facility] Comment:Not indicated HSV 2 IGM TITER REPORT 9 4:03 PM CDT [facility] Comment: Not indicated Test Performed by Glook[facility] Dennis, [facility], [id number] [place], [place] Bill M.D., Ph.D., Director of Laboratories , CLIA [id number] 11/15/2018 9:39 AM CDT Cuca Dutton [facility]IST[facility]ATION PROFESSIONAL LABORAT[facility] Final Result Performing Organization Address [facility]/ZIP Co de Phone Number [facility] [place] [phone] [place], [place] , * HIV AG/AB, 4TH GEN W/RFX ([facility] ONLY) (11/15/2018 9:39 AM CDT) HIV 1/2 AB+ HIV1 P24 AG REPORT 11/18/2018 2:16 PM CDT [facility] Comment: HIV Ag/Ab, 4th Generation ??Non-reactive Reference range: ??Non-reactive HIV-1 antigen and HIV-1/HIV-2 antibodies were not detected. There is no laboratory evidence of HIV infection. PLEASE NOTE This information has been disclosed to you from records whose confidentiality may be protected by state law. ??If your state requires such protection, then the state law prohibits you from making any further disclosure of the information without the specific written consent of the person to whom it pertains, or as otherwise permitted by law. ??A general authorization for the release of medical or other information is NOT sufficient for this purpose. The performance of this assay has not been clinically validated in patients less than 2 years old. For additional information, please refer to http://education.Ordoro.White [place]/faq/XZV923 Test Performed by [facility], [facility] [place], [id number] [place], [place] Bill M.D., Ph.D., Director of Laboratories , CLIA [id number] 11/15/2018 9:39 AM CDT Cuca Nato [facility] Final Result Performing Organization Address [facility]/ZIP Co de Phone Number [facility] [address] [place], [place] , [place] [phone] * SYPHILIS/RPR/VDRL; QUAL (11/15/2018 9:39 AM CDT) RPR Nonreactive Nonreactive 11/18/2018 5:29 PM CDT [facility] [employer] [facility] [facility] RPR TITER REPORT 11/18/2018 5:29 PM CDT [facility] Comment: Not indicated. Test Performed by [facility], [facility] [place], [id number] [place], [place] Bill M.D., Ph.D., Director of Laboratories , [place] [id number] 11/15/2018 9:39 AM CDT Cuca Dutton [facility] Final Result [facility] [address] [place], [place] , [place] [phone] * CULTURE, WOUND, W/GRAM STAIN (11/15/2018 8:39 AM CDT) SPEC DESCRIPTION LABIAL 11/15/2018 6:26 PM CDT [facility] SPECIAL REQUESTS NO SPECIAL REQUEST 11/15/2018 6:26 PM CDT [facility] GRAM STAIN RESULT NO WHITE BLOOD CELLS SEEN 11/16/2018 3:18 PM CDT [facility] GRAM STAIN RESULT RARE EPITHELIAL CELLS SEEN 11/16/2018 3:18 PM CDT [facility] GRAM STAIN RESULT MODERATE GRAM POSITIVE RODS RESEMBLING LACTOBACILLUS SPECIES 11/16/2018 3:18 PM CDT [facility] CULTURE RESULT SPARSE GROWTH OF NORMAL SAÚL PRESENT 11/19/2018 9:12 AM CDT [facility] CULTURE RESULT NOTE: WOUND AND TISSUE CULTURES ARE ROUTINELY SCREENED FOR AEROBIC ORGANISMS ONLY. 11/19/2018 9:12 AM CDT [facility] GENITAL LABIUM STRUCTURE / Unknown 11/15/2018 8:39 AM CDT 11/15/2018 7:46 PM CDT Cuca Dutton MEDICATION ADMINISTRATION PROFESSIONAL MICROBIOLOGY - GENERAL ORDERAB LES Final Result [facility] [address] [place] [address], [place] [phone] * CULTURE VIRAL (11/15/2018 8:39 AM CDT) SPECIMEN SOURCE LABIA 9 1:33 PM CDT [facility] Preliminary Diagnosis: UNKNOWN 11/16/2018 1:33 PM CDT [facility] SUSPECTED VIRUSUS: UNKNOWN 11/16/2018 1:33 PM CDT [facility] RELAVANT VACCINATION: UNKNOWN 11/16/2018 1:33 PM CDT [facility] BRIEF HISTORY UNKNOWN UNKNOWN 11/16/2018 1:33 PM CDT [facility] COMPREHENSIVE VIRUS CULTURE REPORT 11/23/2018 5:44 PM CDT [facility] Comment: Viral Rapid Cultures ?Have been added Enterovirus Culture SOURCE : NOT SUPPLIED RESULT ?Not Isolated Reference range: ??Not Isolated The current Enterovirus culture system does not detect Enterovirus D68. If Enterovirus D68 is suspected, please call client services to add Enterovirus RNA, Qualitative, Real-Time PCR (test code [id number]). Test Performed by Dennis Tatum, [facility], [address] [place] [address] [address] Bill M.D., Ph.D., Director of Laboratories , LENCHO [id number] GENITAL LABIUM STRUCTURE / Unknown 11/15/2018 8:39 AM CDT Cuca Dutton [facility] MICROBIOLOGY - GENERAL ORDERAB LES Final Result Synchro [facility] [address] [place] [address], [place] [phone] [facility] [address] [place] [address], [place] [phone] * CHLAMYDIA AND GC RNA TMA (11/15/2018 8:39 AM CDT) SPEC DESCRIPTION URINE VOIDED 11/15/2018 7:45 PM CDT [facility] CHLAMYDIA RNA TMA NEGATIVE NEGATIVE 11/17/2018 2:45 PM CDT [facility] Comment: A NEGATIVE RESULT DOES NOT PRECLUDE THE PRESENCE OF A CT INFECTION BECAUSE RESULTS ARE DEPENDENT ON ADEQUATE SPECIMEN COLLECTION, ABSENCE OF INHIBITORS, AND SUFFICIENT rRNA TO BE DETECTED. N.GONORRHOEAE RNA TMA NEGATIVE NEGATIVE 11/17/2018 2:45 PM CDT [facility] Comment: A NEGATIVE RESULT DOES NOT PRECLUDE THE PRESENCE OF A GC INFECTION BECAUSE RESULTS ARE DEPENDENT ON ADEQUATE SPECIMEN COLLECTION, ABSENCE OF INHIBITORS, AND SUFFICIENT rRNA TO BE DETECTED. URINE SPECIMEN / Unknown 11/15/2018 8:39 AM CDT Cuca Dutton [facility] MICROBIOLOGY - GENERAL ORDERAB LES Final Result [facility] [address] [place] [address], [place] [phone] [facility] [address] [place] [address], [place] [phone] * HEPATITIS C ANTIBODY (11/15/2018 8:39 AM CDT) HEPATITIS C AB NON-REACTI VE NON-REACTI VE 11/15/2018 9:43 PM CDT [facility] 11/15/2018 8:39 AM CDT us [facility] Final Result [facility] [address] [place] [address], [place] [phone] * HEPATITIS B SURFACE AG, EIA (11/15/2018 8:39 AM CDT) HEPATITIS B SURFACE AG NON-REACTI VE NON-REACTI VE 11/15/2018 9:15 PM CDT [facility] 11/15/2018 8:39 AM CDT [facility] Final Result Performing Organization Address City/[facility]/ZIP Co de Phone Number [facility] [address] [place] [address], [place] [phone] documented in this encounter Visit Diagnoses Diagnosis [place], syphilitic- Primary Early syphilis, genital (primary) Primary syphilis Early syphilis, genital (primary) Exposure to sexually transmitted disease (STD) Contact with or exposure to other communicable diseases documented in this encounter Administered Medications Inactive Administered Medications - up to 3 most recent administrations Medication Order MAR Action Action Date Dose Rate Site cefTRIAXone (ROCEPHIN) injection 1 g 1 g, Intramuscular, Once, 1 dose, On Tue11/15/18 at 0945, Reconstitute with 2.1 mL normal saline, sterile water for injection, or 1% lidocaine to obtain a final concentration of 350 mg/mL.Indications:Primary syphilis Given 11/15/2018 10:35 AM CDT 1 g Right Upper Outer Quadrant documented in this encounter Care Teams Director Radiation Oncology Relationship Specialty Start Date End Date Cuca Dutton FNP [address] [place] [address] PCP - General Nurse Practitioner Family 05/04/18 documented as of this encounter
--- OUTSIDE RECORDS SUMMARY | 2024-03-25 18:37 | XMS_ITS | Encounter Summary ---
Author Organization [facility] Address [address] [place] [address]. [place], [place] [address] [place] [address] Care Team Providers Care Conservation Officer Name Role Phone Cuca Dutton Primary Care Provider [phone] Reason for Visit * Reason Onset Date Comments Lab Results 11/21/2018 Encounter Details Date Type Department Care Team (Late st Contact Info) Description 11/21/2018 Telephone [facility] Family & Internal Medicine [facility] [address] [place] [address] Cuca Dutton FNP [address] [place], [place] [id number] Lab Results Social History Tobacco Use Types [...] Progress Notes * Corry Degroot RN - 11/23/2018 8:48 AM CDT Spoke to patient; verbalized understanding. * Zita Samuels MA - 11/22/2018 7:56 AM CDT Called pt someone answered but did not speak and then hung up 11-22-18 * Norma Araujo MA - 11/21/2018 1:33 PM CDT Mailbox full 11/21/18 tn * Norma Araujo MA - 11/21/2018 1:33 PM CDT ----- Message from CAROLYN Martin sent at 11/21/2018 11:58 AM CDT ----- Labs were normal. I am not sure why she got these lesions, but if they return or get worse after the antibiotics, we can send her over to [facility] or Derm. documented in this encounter Plan of Treatment Not on file documented as of this encounter Visit Diagnoses Not on filedocumented in this encounter Care Teams Conservation Officer Relationship Specialty Start Date End Date Cuca Dutton FNP [address] [place] [address] PCP - General Nurse Practitioner Family 05/04/18 documented as of this encounter
--- OUTSIDE RECORDS SUMMARY | 2024-03-25 18:37 | XMS_ITS | Encounter Summary ---
Author Organization [facility] Address [address] [place] [address]. [place], [place] [id number] [place] [address] Care Team Providers Care Architectural Examiner Name Role Phone Cuca Dutton Primary Care Provider [phone] Encounter Details Date Type Department Care Team (Latest Contact Info) Description 09/04/2018 5:44 PM CDT - 09/04/2018 11:59 PM CDT Hospital Encounter [facility] [place] [address] Cuca Dutton FNP [address] [place], [place] [phone] Discharge Disposition: Home or Self Care (Routine Discharge) Social History Tobacco Use Types Packs/Day Years [...] on file documented as of this encounter Medications at Time of Discharge FLUCELVAX 0.5 ML Suspension Prefilled Syringe ADM 0.5ML IM UTD 0 02/19/2018 11/08/2019 fluconazole 150 MG tabletIndications :Yeast infection Take 1 tablet (150 mg total) by mouth daily. 1 tablet now, may repeat in 72 hour if needed 2 tablet 09/01/2018 09/18/2018 fluoxetine 20 MG capsuleIndication s:Anxiety Take 1 capsule (20 mg total) by mouth daily. 30 capsule 6 09/04/2018 09/18/2018 nitrofurantoin, macrocrystal-mono hydrate, (MACROBID) 100 MG capsuleIndication s:Acute cystitis without hematuria Take 1 capsule (100 mg total) by mouth 2 (two) times daily for 10 days. 20 capsule 09/04/2018 09/14/2018 documented as of this encounter Plan of Treatment Not on file documented as of this encounter Procedures Procedure Name Priority Date/Time Associated Diagnosis Comments URINE BACTERIA CULTURE Routine 09/04/2018 10:23 AM CDT Dysuria Acute cystitis without hematuria documented in this encounter Results * CULTURE URINE (09/04/2018 10:23 AM CDT) SPEC DESCRIPTION URINE CLEAN CATCH 09/04/2018 5:44 PM CDT [facility] SPECIAL REQUESTS NO SPECIAL REQUEST 09/04/2018 5:44 PM CDT [facility] CULTURE RESULT >100,000 COL/ML ESCHERICHIA COLI 09/05/2018 10:49 PM CDT [facility] URINE SPECIMEN OBTAINED BY CLEAN CATCH PROCEDURE / Unknown 09/04/2018 10:23 AM CDT 09/04/2018 5:45 PM CDT Narrative Organism Antibiotic Method Susceptibility Escherichia coli AMPICILLIN MITZI (VITEK) >=32: Resistant Escherichia coli AMPICILLIN/SULBACTAM MITZI (VITEK) >=32: Resistant Escherichia coli CEFTRIAXONE MITZI (VITEK) <=1: Sensitive Escherichia coli CEFTAZIDIME MITZI (VITEK) <=1: Sensitive Escherichia coli CEFAZOLIN MITZI (VITEK) <=4: Sensitive Escherichia coli ESBL MITZI (VITEK) NEG: Sensitive Escherichia coli NITROFURANTOIN MITZI (VITEK) <=16: Sensitive Escherichia coli GENTAMICIN MITZI (VITEK) <=1: Sensitive Escherichia coli LEVOFLOXACIN MITZI (VITEK) <=0.12: Sensitive Escherichia coli PIPRACIL/TAZO MITZI (VITEK) <=4: Sensitive Escherichia coli TRIMETH-SULFAMETH. MITZI (VITEK) >=320: Resistant [facility] - GENERAL ORDERAB LES Final Result [facility] [address] [place] [address], documented in this encounter Visit Diagnoses Diagnosis Dysuria Acute cystitis without hematuria Acute cystitis documented in this encounter Care Teams Architectural Examiner Relationship Specialty Start Date End Date Cuca Dutton FNP [address] [place] [address] [id number] PCP - General Nurse Practitioner Family 05/04/18 documented as of this encounter
--- OUTSIDE RECORDS SUMMARY | 2024-03-25 18:37 | XMS_ITS | Encounter Summary ---
Author Organization [facility] Address [address] [place] [address]. [place], [place] [address] [place] [address] Care Team Providers Care Global Sales Executive Name Role Phone Cuca Dutton Primary Care Provider [phone] Reason for Visit * Reason Comments Fatigue due to zoloft Encounter Details Date Type Department Care Team (Late st Contact Info) Description 06/22/2018 1:20 PM CDT Office Visit [facility] Group Family & Internal Medicine [facility] [address] [place] [address] Cuca Dutton FNP [address] [place], [place] [phone] Fatigue (due to zoloft) Social History Tobacco Use Types Packs/Day Years [...] Sign Reading Time Taken Comments Blood Pressure 100/72 06/22/2018 1:44 PM CDT Pulse 92 06/22/2018 1:44 PM CDT Temperature - - Respiratory Rate 16 06/22/2018 1:44 PM CDT Oxygen Saturation 99% 06/22/2018 1:44 PM CDT Inhaled Oxygen Concentration - - Weight 62.6 kg (138 lb) 06/22/2018 1:44 PM CDT Height 162.6 cm (5' 4 ) 06/22/2018 1:44 PM CDT Body Mass Index 23.69 06/22/2018 1:44 PM CDT Body Mass Index Percentile 73.64% 06/22/2018 1:4 4 PM CDT Growth Chart: [facility] (Girls, 2- 20 Years) documented in this encounter Patient Instructions * Patient Instructions* CAROLYN Martin - 06/22/2018 1:20 PM CDT - Continue to take medications as prescribed - Increase water consumption - Consume a well balanced diet and eat regular small meals with snacks throughput the day. Consume diet high in fruits, vegetables and lean protein. - Practice routine exercise with 150 minutes of physical activity weekly - Seek medical attention for thoughts of suicide or - Notify office for any questions or concerns documented in this encounter Progress Notes * CAROLYN Martin - 06/22/2018 1:20 PM CDT Office Progress Note Reason for Visit: Fatigue (due to zoloft) History of Present Illness: Stephanie comes to the office today with complaints of fatigue. She reports she feels tired all the time despite a full night's rest. She does report having a hard time falling asleep and states it is due to her mind racing. She is attributing her symptoms to starting sertraline a few months ago. She reports the sertraline has improved her anxiety symptoms throughout the day. She denies panic attacks, irritability, restlessness, or feelings of impending doom but does reports continued worry and anxious feelings. Denies sadness, feelings of anhedonia, SI or HI. She states she does not drink a lot of water throughout the day, and feels as though she could improve her diet overall. She states occasionally she feels lightheaded when she stands up to fast. She denies headaches, syncopal episodes, palpitations, chest pain or blurry vision. Denies tobacco or illicit drug use. ROS: Review of Systems Constitutional: Positive for malaise/fatigue. Negative for chills, diaphoresis, fever and weight loss. HENT: Negative for congestion, ear discharge, ear pain, hearing loss, sinus pain, sore throat and tinnitus. Eyes: Negative for blurred vision, double vision, photophobia, pain, discharge and redness. Respiratory: Negative for cough, hemoptysis, sputum production, shortness of breath and wheezing. Cardiovascular: Negative for chest pain, palpitations, orthopnea and leg swelling. Gastrointestinal: Negative for abdominal pain, blood in stool, constipation, diarrhea and melena. Genitourinary: Negative for hematuria. Musculoskeletal: Negative for falls, joint pain and myalgias. Skin: Negative for itching and rash. Neurological: Negative for dizziness, sensory change, speech change, weakness and headaches. Endo/Heme/Allergies: Does not bruise/bleed easily. Psychiatric/Behavioral: Negative for depression, substance abuse and suicidal ideas. The patient isnervous/anxious. The patient does not have insomnia. Medications: Current Outpatient Medications on File Prior to Visit Medication Sig ??? AMNESTEEM 40 MG Cap TK 2 CS PO D WITH A MEAL No current facility-administered medications on file prior to visit. Allergies: Allergies Allergen Reactions ??? Sulfamethoxazole-Trimethoprim Unknown Medical History: No past medical history on file. Surgical History: Past Surgical History: Procedure Laterality [...] file Gets together: Not on file Attends spiritism service: Not on file Active member of [...] appears well- developed and well-nourished. She is active and cooperative. She does not have a sickly appearance. She does not appear ill. No distress. HENT: Head: Normocephalic and atraumatic. Right Ear: External ear normal. Left Ear: External ear normal. Eyes: Conjunctivae, EOM and lids are normal. Pupils are equal, round, and reactive to light. Neck: Normal range of motion and full passive range of motion without pain. Neck supple. Normal carotid pulses and no JVD present. Carotid bruit is not present. No tracheal deviation present. No thyroid mass and no thyromegaly present. Cardiovascular: Normal rate, regular rhythm and normal heart sounds. Pulmonary/Chest: Effort normal and breath sounds normal. No accessory muscle usage. No respiratory distress. She has no decreased breath sounds. She has no wheezes. She has no rhonchi. She has no rales. She exhibits no tenderness. Abdominal: Soft. Normal appearance and bowel sounds are normal. She exhibits no distension and no mass. There is no tenderness. There is no rebound and no guarding. Lymphadenopathy: She has no cervical adenopathy. Neurological: She is alert and oriented to person, place, and time. She has normal strength. No cranial nerve deficit or sensory deficit. Coordination and gait normal. Skin: Skin is warm, dry and intact. No rash noted. She is not diaphoretic. No erythema. No pallor. Psychiatric: She has a normal mood and affect. Her speech is normal and behavior is normal. Judgment and thought content normal. Cognition and memory are normal. Filed Vitals: 06/22/18 1344 BP: 100/72 Pulse: 92 Resp: 16 SpO2: 99% Weight: 62.6 kg (138 lb) Height: 5' 4 (1.626 m) Diagnoses/Impression: 1. Anxiety CBC W/DIFF AUTOMATED COMPREHENSIVE METABOLIC PANEL TSH W/REFLEX fluoxetine 20 MG capsule VENIPUNC ARM DRAW 2. Dizziness CBC W/DIFF AUTOMATED COMPREHENSIVE METABOLIC PANEL TSH W/REFLEX VENIPUNC ARM DRAW Recommendations and Plan: 1. Anxiety - CBC W/DIFF AUTOMATED; Future - COMPREHENSIVE METABOLIC PANEL; Future - TSH W/REFLEX; Future - fluoxetine 20 MG capsule; Take 1 capsule (20 mg total) by mouth daily. Dispense: 30 capsule; Refill: 2 - VENIPUNC ARM DRAW 2. Dizziness - CBC W/DIFF AUTOMATED; Future - COMPREHENSIVE METABOLIC PANEL; Future - TSH W/REFLEX; Future - VENIPUNC ARM DRAW Orders Placed This Encounter ??? VENIPUNC ARM DRAW ??? CBC W/DIFF AUTOMATED ??? COMPREHENSIVE METABOLIC PANEL ??? TSH W/REFLEX ??? fluoxetine 20 MG capsule Cannot display discharge medications since this is not an admission. PCP: CAROLYN VALENZUELA 06/23/2018 documented in this encounter Plan of Treatment Scheduled Orders Name Type Priority Associated Diagnoses Orde r Schedule VENIPUNC ARM DRAW Procedures Routine Anxiety Dizziness Ordered: 06/22/2018 documented as of this encounter Results * TSH W/REFLEX (06/22/2018 3:08 PM CDT) TSH 0.378 0.358 - 3.74 uIU/ML 06/22/2018 9:36 PM CDT [facility] Comment: HIGH DOSES OF BIOTIN MAY INTERFERE WITH THIS TEST RESULT. CORRELATION TO CLINICAL HISTORY AND PRESENTATION RECOMMENDED. FREE T4 NOT INDICATED 06/22/2018 3:08 PM CDT [facility] Final Result [facility] [address] [place] [address], [place] [phone] * (ABNORMAL) COMPREHENSIVE METABOLIC PANEL (06/22/2018 3:08 PM CDT) [facility] GLUCOSE 82 70 - 99 MG/DL 06/22/2018 9:[address] [facility] BUN 10 7 - 18 MG/DL 06/22/2018 9:[address] [facility] CREATININE S/P/B 0.66 0.55 - 1.02 MG/DL 06/22/2018 9:[address] [facility] SODIUM S/P/B 139 136 - 145 MMOL/L 06/22/2018 9:[address] [facility] POTASSIUM S/P/B 4.0 3.5 - 5.1 MMOL/L 06/22/2018 9:[address] [facility] CHLORIDE S/P/B 110(H) 100 - 108 MMOL/L 06/22/2018 9:[address] [facility] CO2 24.5 21 - 32 MMOL/L 06/22/2018 9:[address] [facility] CALCIUM S/P/B 8.6 8.5 - 10.1 MG/DL 06/22/2018 9:[address] [facility] BILIRUBIN TOTAL S/P/B 0.3 0.2 - 1.1 MG/DL 06/22/2018 9:[address] [facility] TOTAL PROTEIN S/P/B 7.1 6.4 - 8.2 G/DL 06/22/2018 9:[address] [facility] ALBUMIN S/P/B 3.9 3.4 - 5.0 G/DL 06/22/2018 9:[address] [facility] AST 20 15 - 37 U/L 06/22/2018 9:[address] [facility] ALT 17 14 - 55 U/L 06/22/2018 9:[address] [facility] ALKALINE PHOSPHATASE S/P/B 82 50 - 136 U/L 06/22/2018 9:[address] [facility] ANION GAP 8.5 8 - 20 MMOL/L 06/22/2018 9:[address] [facility] BUN CREATININE RATIO 15.0 6 - 26 06/22/2018 9:[address] [facility] A/G RATIO 1.2 1.0 - 2.0 RATIO 06/22/2018 9:[address] [facility] EGFR NON-AFR. AMER. >90 >90 ML/MIN/1.7 3 M2 06/22/2018 9:[address] [facility] EGFR AFR. AMER. >90 >90 ML/MIN/1.7 3 M2 06/22/2018 9:[address] [facility] Comment: NOTE: eGFR is not calculated for patients <18 years of age. This is an estimated GFR (CKD EPI) and should not be used for calculating drug doses. 06/22/2018 3:08 PM CDT Cuca Nato [facility] Final Result [facility] [address] [place] [address], [place] [phone] * (ABNORMAL) CBC W/DIFF AUTOMATED (06/22/2018 3:08 PM CDT) WBC 6.4 4.5 - 13.0 x10'3/uL 06/22/2018 8:[address] [facility] RBC 4.18(L) 4.20 - 5.40 x10'6/uL 06/22/2018 8:[address] [facility] HGB 12.1 12.0 - 16.0 G/DL 06/22/2018 8:[address] [facility] HCT 37.6(L) 38.0 - 48.0 % 06/22/2018 8:[address] [facility] MCV 90.0 80.0 - 94.0 FL 06/22/2018 8:[address] [facility] MCH 28.9 27.0 - 31.0 PG 06/22/2018 8:[address] [facility] MCHC 32.2 32.0 - 36.0 G/DL 06/22/2018 8:[address] [facility] RDW 14.4 11.5 - 14.5 % 06/22/2018 8:[address] [facility] PLT 323 130 - 400 x10'3/uL 06/22/2018 8:[address] [facility] MPV 9.9 9.3 - 12.2 FL 06/22/2018 8:[address] [facility] DIFFERENTIAL TYPE AUTOMATED DIFFERENTIAL 06/22/2018 8:[address] [facility] NEUTROPHILS % 47.4 % 06/22/2018 8:[address] [facility] LYMPHOCYTES % 42.9 % 06/22/2018 8:[address] [facility] MONOCYTES % 8.3 % 06/22/2018 8:[address] [facility] EOSINOPHILS 0.9 % 06/22/2018 8:[address] [facility] BASOPHILS 0.3 % 06/22/2018 8:[address] [facility] IMMATURE GRANS % 0.2(H) 0 % 06/23/19 19 8:[address] [facility] ABS. NEUTROPHILS TOTAL 3.03 1.80 - 8.00 x10'3/uL 06/22/2018 8:[address] [facility] ABS. LYMPHOCYTES 2.74 1.20 - 5.20 x10'3/uL 06/22/2018 8:[address] [facility] ABS. MONOCYTES 0.53 0.24 - 0.86 x10'3/uL 06/22/2018 8:[address] [facility] ABS. EOSINOPHILS 0.06 0.04 - 0.36 x10'3/uL 06/22/2018 8:[address] [facility] ABS. BASOPHILS 0.02 0.01 - 0.08 x10'3/uL 06/22/2018 8:[address] [facility] ABS. IMMATURE GRANULOCYTES 0.01 0.00 - 0.03 x10'3/uL 06/22/2018 8:[address] [facility] 06/22/2018 3:08 PM CDT [facility] Final Result [facility] [address] [place] [address], documented in this encounter Visit Diagnoses Diagnosis Anxiety- Primary Anxiety state, unspecified Dizziness Dizziness and giddiness documented in this encounter Care Teams Global Sales Executive Relationship Specialty Start Date End Date Cuca Dutton FNP [address] [place] [address] PCP - General Nurse Practitioner Family 05/04/18 documented as of this encounter
--- OUTSIDE RECORDS SUMMARY | 2024-03-25 18:37 | XMS_ITS | Encounter Summary ---
Author Organization [facility] Address [address] [place] [address]. [place], [place] [address] [place] [address] Care Team Providers Care Predatory Hunter Name Role Phone Cuca Dutton Primary Care Provider [phone] Reason for Visit * Reason Comments Lab (SCAN) Encounter Details Date Type Department Care Team (Latest Contact Info) Description 09/04/2018 Scan HEALTH INFO SRVCS Scanned, Documents Lab (SCAN) Social History Tobacco Use Types Packs/Day Years [...] Associated Diagnosis Comments OUTSIDE LAB (SCAN ORDER) Routine 09/04/2018 documented in this encounter Results * OUTSIDE LAB (09/04/2018) 09/04/2018 us Documents Scanned SCANNING Edited Result - Final documented in this encounter Visit Diagnoses Not on filedocumented in this encounter Care Teams Predatory Hunter Relationship Specialty Start Date End Date Cuca Dutton FNP [address] [place] [address] PCP - General Nurse Practitioner Family 05/04/18 documented as of this encounter
--- OUTSIDE RECORDS SUMMARY | 2024-03-25 18:37 | XMS_ITS | Encounter Summary ---
Author Organization [facility] Address [address] [place] [address]. [place], [place] [address] [place] [address] Care Team Providers Care Vocational Technical Education Teacher Name Role Phone Cuca Dtuton Primary Care Provider [phone] Reason for Visit * Reason Comments UTI burning, cloudy, con stant urination Encounter Details Date Type Department Care Team (Late st Contact Info) Description 09/04/2018 9:40 AM CDT Office Visit [facility] Family & Internal Medicine [id number] [place] [address] [facility] [place] [address] UTI (burning, cloudy, constant urination) Social History Tobacco Use Types Packs/Day Years [...] Sign Reading Time Taken Comments Blood Pressure 105/68 09/04/2018 10:00 AM CDT Pulse 84 09/04/2018 10:00 AM CDT Temperature - - Respiratory Rate 14 09/04/2018 10:00 AM CDT Oxygen Saturation 100% 09/04/2018 10:00 AM CDT Inhaled Oxygen Concentration - - Weight - - Height - - Body Mass Index - - documented in this encounter Patient Instructions * Patient Instructions* Cuca DuttonCAROLYN - 09/04/2018 9:40 AM CDT Images from the original note were not included. Patient Education Patient Education Acute Cystitis Discharge Instructions About this topic Acute cystitis is irritation of the bladder. It is often caused by germs getting into the urinary tract. The urinary tract includes the kidneys, ureters, bladder, and urethra. The urethra is a tube at the bottom of the bladder. Urine flows out of this tube. The germs enter the urethra and then spread in the bladder. These germs may cause an infection in the bladder or urinary tract. This condition may also be caused by irritation from things like bubble baths, sanitary pads, sex, certain drugs,or certain foods. This condition is more common in women than men. What care is needed at home? ?? Ask your doctor what you need to do when you go home. Make sure you ask questions if you do not understand what the doctor says. This way you will know what you need to do. ?? Take your drugs as ordered by your doctor. ?? Drink at least 8 to 10 glasses of water or water-based drinks each day. Do not include drinks with caffeine, like coffee or tea. ?? Do not hold back your urine. Go to the bathroom every 2 to 3 hours. ?? Apply a warm compress or warm water bottle to your lower belly to lessen pain. ?? Practice good hygiene. Women should wipe from front to back after going to the toilet. ?? Do not use scented tampons, soap, or toilet paper. ?? Go to the toilet before and after sex. ?? Keep your genital area clean. Wash daily with soap and water. ?? Take showers instead of tub baths. ?? Do not use douches or feminine sprays. What follow-up care is needed? Your doctor may ask you to make visits to the office to check on your progress. Be sure to keep these visits. What drugs may be needed? The doctor may order drugs to: ?? Help with pain or swelling ?? Help with the urge or need to pass urine often ?? Fight an infection Will physical activity be limited? Physical activities will not be limited. You may have to pass urine more often. What changes to diet are needed? ?? Do not drink beer, wine, and mixed drinks (alcohol) or caffeine. These can bother the bladder. ?? Talk to your doctor about drinking cranberry juice or taking cranberry tablets. What problems could happen? ?? Kidney infection ?? Blood in the urine When do I need to call the doctor? ?? Signs of a very bad reaction. These include wheezing; chest tightness; fever; itching; bad cough; blue skin color; seizures; or swelling of face, lips, tongue, or throat. Go to the ER right away. ?? Signs of infection. These include a fever of 100.4??F (38??C) or higher, chills, pain with passing urine. ?? Signs are worse or do not get better within 24 hours of starting treatment ?? Blood in the urine ?? Very bad pain in the back, sides, or belly ?? You have discharge from your penis or vagina ?? Little urine or no urine at all ?? Signs return after treatment ends ?? You are not feeling better in [...] condition. ?? I can tell you what are good fluids for me to drink and how often I should try to go to the bathroom. ?? I can tell you what I will do if I have a fever; chills; pain with passing urine; blood in my urine; or back, side, or belly pain. Where can I learn more? NHS Choices http://www.nhs.uk/conditions/Cystitis/Pages/Introduction.aspx Last Reviewed Date 2016-08-09 Consumer Information Use and Disclaimer This information [...] right for you. Copyright Copyright ?? 2019 [employer] and its affiliates and/or licensors. All rights reserved. documented in this encounter Progress Notes * CAROLYN Martin - 09/04/2018 9:40 AM CDT Office Progress Note Reason for Visit: UTI (burning, cloudy, constant urination) History of Present Illness: Stephanie presents to the office with c/o urinary symptoms for the last 5 days. She has had some cloudy urine with back and abdominal pain. ROS: Review of Systems Constitutional: Negative for chills, diaphoresis, fever, malaise/fatigue and weight loss. HENT: Negative for sore throat. Eyes: Negative for blurred vision. Respiratory: Negative for shortness of breath. Cardiovascular: Negative for chest pain and leg swelling. Gastrointestinal: Positive for abdominal pain. Negative for blood in stool, constipation, diarrhea,heartburn, melena, nausea and vomiting. Genitourinary: Positive for dysuria, flank pain and urgency. Negative for frequency and hematuria. Musculoskeletal: Positive for back pain. Negative for falls, joint pain, myalgias and neck pain. Neurological: Negative for dizziness, tingling, tremors, sensory change, speech change, focal weakness, seizures, loss of consciousness, weakness and headaches. Psychiatric/Behavioral: Negative for depression, substance abuse and suicidal ideas. The patient isnot nervous/anxious and does not have insomnia. Medications: Current Outpatient Medications on File Prior to Visit Medication Sig ??? fluconazole 150 MG tablet Take 1 tablet (150 mg total) by mouth daily. 1 tablet now, may repeatin 72 hour if needed ??? fluoxetine 20 MG capsule Take 1 capsule (20 mg total) by mouth daily. No current [...] file Gets together: Not on file Attends mandaen service: Not on file Active member of [...] External ear normal. Nose: Nose normal. Mouth/Throat: Oropharynx is clear and moist. Eyes: Conjunctivae and EOM are normal. Pupils are equal, round, and reactive to light. Neck: Normal range of motion. Neck supple. No tracheal deviation present. No thyromegaly present. Cardiovascular: Normal rate, regular rhythm and intact distal pulses. Exam reveals no gallop and nofriction rub. No murmur heard. Pulmonary/Chest: Effort normal and breath sounds normal. No respiratory distress. She has no wheezes. Abdominal: Soft. Normal appearance and bowel sounds are normal. She exhibits no distension and no mass. There is tenderness in the suprapubic area. There is CVA tenderness. There is no rebound and noguarding. Musculoskeletal: Normal range of motion. She exhibits no tenderness or deformity. Lymphadenopathy: She has no cervical adenopathy. Neurological: She is alert and oriented to person, place, and time. She has normal strength and normal reflexes. No cranial nerve deficit or sensory deficit. Coordination and gait normal. Skin: Skin is warm, dry and intact. No rash noted. No erythema. Psychiatric: She has a normal mood and affect. Her speech is normal and behavior is normal. Judgment and thought content normal. Cognition and memory are normal. Nursing note and vitals reviewed. Filed Vitals: 09/04/18 1000 BP: 105/68 Pulse: 84 Resp: 14 SpO2: 100% Diagnoses/Impression: No diagnosis found. Recommendations and Plan: There are no diagnoses linked to this encounter. No orders of the defined types were placed in this encounter. Cannot display discharge medications since this is not an admission. PCP: CAROLYN VALENZUELA 09/04/2018 documented in this encounter Plan of Treatment Not on file documented as of this encounter Procedures Procedure Name Priority Date/Time Associated Diagnosis Comments URINALYSIS AUTO DIP Routine 09/04/2018 Dysuria documented in this encounter Results * CULTURE URINE (09/04/2018 10:23 AM CDT) SPEC DESCRIPTION URINE CLEAN CATCH 09/04/2018 5:[address] [facility] SPECIAL REQUESTS NO SPECIAL REQUEST 09/04/2018 5:[address] [facility] CULTURE RESULT >100,000 COL/ML ESCHERICHIA COLI 09/05/2018 10:[address] [facility] URINE SPECIMEN OBTAINED BY CLEAN CATCH [...] coli TRIMETH-SULFAMETH. MITZI (VITEK) >=320: Resistant Cuca CHRISTINAP MICROBIOLOGY - GENERAL ORDERAB LES Final Result [facility] [address] [place] [address], * URINALYSIS AUTO DIP (09/04/2018) COLOR (U) YELLOW [facility] TRANSPARENCY CLOUDY [facility] GLUCOSE (U) NEGATIVE NEGATIVE MG/DL [facility] BILIRUBIN (U) NEGATIVE NEGATIVE [facility] KETONES MG/DL (U) NEGATIVE NEGATIVE MG/DL [facility] SPECIFIC GRAVITY (U) 1.020 1.001 - 1.035 [facility] BLOOD (U) TRACE (Non Hemolyzed, Intact) NEGATIVE [facility] U PH 7.0 5.0 - 9.0 [facility] PROTEIN (U) TRACE NEGATIVE mg/dL [facility] UROBILINOGEN 0.2 0.2 - 1.0 EU/dL = mg/dL [facility] NITRITES POSITIVE NEGATIVE MG/DL [facility] LEUKOCYTES (U) 2+ (MODERATE) NEGATIVE [facility] URINE SPECIMEN OBTAINED BY CLEAN CATCH PROCEDURE / Unknown 09/04/2018 us Cuca LEON URINE ORDERABLES Final Result Performing Organization Address City/State/[facility] Co de Phone Number [address] [address], documented in this encounter Visit Diagnoses Diagnosis Dysuria- Primary Acute cystitis without hematuria Acute cystitis Anxiety Anxiety state, unspecified documented in this encounter Care Teams Vocational Technical Education Teacher Relationship Specialty Start Date End Date Cuca Dutton FNP [address] [place] [address] PCP - General Nurse Practitioner Family 05/04/18 documented as of this encounter
--- OUTSIDE RECORDS SUMMARY | 2024-03-25 18:37 | XMS_ITS | Encounter Summary ---
Author Organization [facility] Address [address] [place] [address]. [place], [place] [address] [place] [address] Care Team Providers Care Gas Attendant Name Role Phone Cuca Dutton Primary Care Provider [phone] Encounter Details Date Type Department Care Team (Latest Contact Info) Description 09/06/2018 Scan [facility] Scanned, Documents [...] on filedocumented in this encounter Care Teams Gas Attendant Relationship Specialty Start Date End Date Cuca Dutton FNP [address] [place] [address] PCP - General Nurse Practitioner Family 05/04/18 documented as of this encounter
--- OUTSIDE RECORDS SUMMARY | 2024-03-25 18:37 | XMS_ITS | Encounter Summary ---
Author Organization [facility] Address [facility] [place], [place] [address] [place] [address] Care Team Providers Care Steam And Power Supervisor Name Role Phone Unavailable Primary Care Provider Unavailabl e Encounter Details Date Type Department Care Team (Latest Contact Info) Description 10/21/2017 Abstract [facility] Kris Linder MD Social History Tobacco Use Types Packs/Day Years Used Date Smoking Tobacco: Never Assessed Comments Unknown Sex and Gender Information Value Date Recorded Sex Assigned at Not on file Legal Sex Female 8:44 PM CDT Gender Identity Not on file Sexual Orientation Not on file documented as of this encounter Progress Notes * Kris Cano Md, MD - 10/21/2017 1:35 PM CDT Message Message: patients mother called in with tb reading. pt mom states that tb is negative. Plan 1. *TB Skin Test Reading In Office; Status:Complete; Done: [id number] 01:45PM Performed:In Office; Due:[id number];Ordered; For:Immunization due; Ordered By:Cuca Dutton; Signatures Electronically signed by : Cyndi Wakefield, ; Oct 24 2017 8:23AM [place] [address] JUDGE (Author) documented in this encounter Plan of Treatment Not on file documented as of this encounter Procedures Procedure Name Priority Date/Time Associated Diagnosis Comments TB INTRADERMAL TEST(LAB PERFORMED) Routine 10/21/2017 1:45 PM CDT documented in this encounter Results * TB INTRADERMAL TEST(LAB PERFORMED) (10/21/2017 1:45 PM CDT) TB SKIN TST 2ND STEP Negative [facility] TO EPIC CONVERSION COMMENT 0 [facility] T O EPIC CONVERSION TB SKIN TST 2ND STEP 0 [facility] TO EPIC CONVERSION 10/21/2017 1:45 PM CDT 10/21/2017 1:45 PM CDT Narrative [facility] TO EPIC CONVERSION - 10/21/2017 1:45 PM CDT Result Communication: No patient communication needed at this time Cuca CHRISTINAP MICROBIOLOGY - GENERAL ORDERAB LES Final Result [facility] TO EPIC CONVERSION documented in this encounter Visit Diagnoses Not on filedocumented in this encounter
--- OUTSIDE RECORDS SUMMARY | 2024-03-25 18:37 | XMS_ITS | Encounter Summary ---
Author Organization [facility] Address [address] [place] [address]. [place], [place] [address] [place] [address] Care Team Providers Care Senior Examiner Name Role Phone Cuca Dutton Primary Care Provider [phone] Reason for Visit * Reason Onset Date Comments Lab Results 11/19/2019 Encounter Details Date Type Department Care Team (Late st Contact Info) Description 11/19/2019 Telephone [facility] Family & Internal Medicine [facility] [address] [place] [address] Cuca Dutton FNP [address] [place], [place] [phone] Lab Results Social History Tobacco Use Types [...] Progress Notes * Isela Matos MA - 11/23/2019 8:25 AM CDT Patient informed and v/u * Norma Araujo MA - 11/22/2019 5:34 PM CDT Lm 11/22/19 tn * CAROLYN Martin - 11/22/2019 12:08 PM CDT Yes. It is a PH imbalance, so making sure that she does not use any harsh soaps, cleansers, no douching, wearing cotton underwear, and a daily, women's probiotic will help * Aga Bui - 11/22/2019 10:07 AM CDT Pt calling in, only had enough med for five days. Will this be ok? Also, what can she do to prevent this in future? * Isela Matos MA - 11/19/2019 2:50 PM CDT Patient informed and v/u, rx sent to pharmacy * Isela Matos MA - 11/19/2019 2:48 PM CDT ----- Message from CAROLYN Martin sent at 11/19/2019 10:18 AM CDT ----- Her vaginitis panel just showed some BV. Lets send out some metrogel to use vaginally at night for the next 7 nights. STD testing was negative. documented in this encounter Plan of Treatment Not on file documented as of this encounter Visit Diagnoses Diagnosis Bacterial vaginosis- Primary Vaginitis and vulvovaginitis, unspecified documented in this encounter Care Teams Senior Examiner Relationship Specialty Start Date End Date Cuca Dutton FNP [address] [place] [address] PCP - General Nurse Practitioner Family 05/04/18 documented as of this encounter
--- OUTSIDE RECORDS SUMMARY | 2024-03-25 18:37 | XMS_ITS | Encounter Summary ---
Author Organization [facility] Address [address] [place] [address]. [place], [place] [address] [place] [address] Care Team Providers Care Medical Staff Specialist Name Role Phone Cuca Dutton Primary Care Provider [phone] Encounter Details Date Type Department Care Team (Latest Contact Info) Description 06/22/2018 8:17 PM CDT - 06/22/2018 11:59 PM CDT Hospital Encounter [facility] [place] [address] Cuca Dutton FNP [address] [place], [place] [phone] Discharge Disposition: Home or Self Care (Routine [...] this encounter Medications at Time of Discharge AMNESTEEM 40 MG Cap TK 2 CS PO D WITH A MEAL 0 03/30/2018 09/04/2018 FLUCELVAX 0.5 ML Suspension Prefilled Syringe ADM 0.5ML IM UTD 0 02/19/2018 11/08/2019 fluoxetine 20 MG capsuleIndication s:Anxiety Take 1 capsule (20 mg total) by mouth daily. 30 capsule 2 06/22/2018 09/04/2018 documented as of this encounter Progress Notes * CAROLYN Martin - 06/23/2018 4:15 PM CDT Stephanie's labs are within normal limits. Continue medications and plan of care as we discussed. documented in this encounter Plan of Treatment Not on file documented as of this encounter Procedures Procedure Name Priority Date/Time Associated Diagnosis Comments TSH W/REFLEX Routine 06/22/2018 3:08 PM CDT Anxiety Dizziness COMPREHENSIVE METABOLIC PANEL Routine 06/22/2018 3:08 PM CDT Anxiety Dizziness CBC W/DIFF AUTOMATED Routine 06/22/2018 3:08 PM CDT Anxiety Dizziness documented in this encounter Results * TSH W/REFLEX (06/22/2018 3:08 PM CDT) TSH 0.378 0.358 - 3.74 uIU/ML 06/22/2018 9:36 PM CDT [facility] Comment: HIGH DOSES OF BIOTIN MAY INTERFERE WITH THIS TEST RESULT. CORRELATION TO CLINICAL HISTORY AND PRESENTATION RECOMMENDED. FREE T4 NOT INDICATED 06/22/2018 3:08 PM CDT Cuca [facility] Final Result [facility] [address] [place] [address], [place] [phone] * (ABNORMAL) COMPREHENSIVE METABOLIC PANEL (06/22/2018 3:08 PM CDT) GLUCOSE 82 70 - 99 MG/DL 06/22/2018 9:36 PM CDT [facility] BUN 10 7 - 18 MG/DL 06/22/2018 9:36 PM CDT [facility] CREATININE S/P/B 0.66 0.55 - 1.02 MG/DL 06/22/2018 9:36 PM CDT [facility] SODIUM S/P/B 139 136 - 145 MMOL/L 06/22/2018 9:36 PM CDT [facility] POTASSIUM S/P/B 4.0 3.5 - 5.1 MMOL/L 06/22/2018 9:36 PM CDT [facility] CHLORIDE S/P/B 110(H) 100 - 108 MMOL/L 06/22/2018 9:36 PM CDT [facility] CO2 24.5 21 - 32 MMOL/L 06/22/2018 9:36 PM CDT [facility] CALCIUM S/P/B 8.6 8.5 - 10.1 MG/DL 06/22/2018 9:36 PM CDT [facility] BILIRUBIN TOTAL S/P/B 0.3 0.2 - 1.1 MG/DL 06/22/2018 9:36 PM CDT [facility] TOTAL PROTEIN S/P/B 7.1 6.4 - 8.2 G/DL 06/22/2018 9:36 PM CDT [facility] ALBUMIN S/P/B 3.9 3.4 - 5.0 G/DL 06/22/2018 9:36 PM CDT [facility] AST 20 15 - 37 U/L 06/22/2018 9:36 PM CDT [facility] ALT 17 14 - 55 U/L 06/22/2018 9:36 PM CDT [facility] ALKALINE PHOSPHATASE S/P/B 82 50 - 136 U/L 06/22/2018 9:36 PM CDT [facility] ANION GAP 8.5 8 - 20 MMOL/L 06/22/2018 9:36 PM CDT [facility] BUN CREATININE RATIO 15.0 6 - 26 06/22/2018 9:36 PM CDT [facility] A/G RATIO 1.2 1.0 - 2.0 RATIO 06/22/2018 9:36 PM CDT [facility] EGFR NON-AFR. AMER. >90 >90 ML/MIN/1.7 3 M2 06/22/2018 9:36 PM CDT [facility] EGFR AFR. AMER. >90 >90 ML/MIN/1.7 3 M2 06/22/2018 9:36 PM CDT [facility] Comment: NOTE: eGFR is not calculated for patients <18 years of age. This is an estimated GFR (CKD EPI) and should not be used for calculating drug doses. 06/22/2018 3:08 PM CDT us Cuca [facility] Final Result [facility] [address] [place] [address], [place] [phone] * (ABNORMAL) CBC W/DIFF AUTOMATED (06/22/2018 3:08 PM CDT) WBC 6.4 4.5 - 13.0 x10'3/uL 06/22/2018 8:57 PM CDT [facility] RBC 4.18(L) 4.20 - 5.40 x10'6/uL 06/22/2018 8:57 PM CDT [facility] HGB 12.1 12.0 - 16.0 G/DL 06/22/2018 8:57 PM CDT [facility] HCT 37.6(L) 38.0 - 48.0 % 06/22/2018 8:57 PM CDT [facility] MCV 90.0 80.0 - 94.0 FL 06/22/2018 8:57 PM CDT [facility] MCH 28.9 27.0 - 31.0 PG 06/22/2018 8:57 PM CDT [facility] MCHC 32.2 32.0 - 36.0 G/DL 06/22/2018 8:57 PM CDT [facility] RDW 14.4 11.5 - 14.5 % 06/22/2018 8:57 PM CDT [facility] PLT 323 130 - 400 x10'3/uL 06/22/2018 8:57 PM CDT [facility] MPV 9.9 9.3 - 12.2 FL 06/22/2018 8:57 PM CDT [facility] DIFFERENTIAL TYPE AUTOMATED DIFFERENTIAL 06/22/2018 8:57 PM CDT [facility] NEUTROPHILS % 47.4 % 06/22/2018 8:57 PM CDT [facility] LYMPHOCYTES % 42.9 % 06/22/2018 8:57 PM CDT [facility] MONOCYTES % 8.3 % 06/22/2018 8:57 PM CDT [facility] EOSINOPHILS 0.9 % 06/22/2018 8:57 PM CDT [facility] BASOPHILS 0.3 % 06/22/2018 8:57 PM CDT [facility] IMMATURE GRANS % 0.2(H) 0 % 06/23/19 19 8:57 PM CDT [facility] ABS. NEUTROPHILS TOTAL 3.03 1.80 - 8.00 x10'3/uL 06/22/2018 8:57 PM CDT [facility] ABS. LYMPHOCYTES 2.74 1.20 - 5.20 x10'3/uL 06/22/2018 8:57 PM CDT [facility] ABS. MONOCYTES 0.53 0.24 - 0.86 x10'3/uL 06/22/2018 8:57 PM CDT [facility] ABS. EOSINOPHILS 0.06 0.04 - 0.36 x10'3/uL 06/22/2018 8:57 PM CDT [facility] ABS. BASOPHILS 0.02 0.01 - 0.08 x10'3/uL 06/22/2018 8:57 PM CDT [facility] ABS. IMMATURE GRANULOCYTES 0.01 0.00 - 0.03 x10'3/uL 06/22/2018 8:57 PM CDT [facility] 06/22/2018 3:08 PM CDT [facility] Final Result [facility] [address] [place] [address], documented in this encounter Visit Diagnoses Diagnosis Vaginal odor Unspecified symptom associated with female genital organs High risk heterosexual behavior Problems related to high-risk sexual behavior Anxiety Anxiety state, unspecified Dizziness Dizziness and giddiness documented in this encounter Care Teams Medical Staff Specialist Relationship Specialty Start Date End Date Cuca Dutton FNP [address] [place] [phone] PCP - General Nurse Practitioner Family 05/04/18 documented as of this encounter
--- OUTSIDE RECORDS SUMMARY | 2024-03-25 18:37 | XMS_ITS | Encounter Summary ---
Author Organization [facility] Address [address] [place] [address]. [place], [place] [address] [place] [address] Care Team Providers Care Blow Pit Operator Name Role Phone Cuca Dutton Primary Care Provider [phone] Reason for Visit * Reason Onset Date Comments Results 11/20/2018 Encounter Details Date Type Department Care Team (Late st Contact Info) Description 11/20/2018 Telephone [facility] Medical Group Family & Internal Medicine [facility] [address] [place] [address] Cuca Dutton FNP [address] [place], [place] [phone] Results Social History Tobacco Use Types Packs/Day [...] as of this encounter Progress Notes * Kristan Hull MA - 11/20/2018 1:04 PM CDT Spoke with pt and informed of the following. Pt states that they are pretty much better and almost gone. * CAROLYN Martin - 11/20/2018 10:02 AM CDT Yes just the viral culture is pending. Her other tests are normal. How are the lesions? I would finish the antibiotic, even though her syphilis is negative. * Kristan Hull MA - 11/20/2018 9:40 AM CDT Pt is calling asking about her lab results from 11/15/18. I informed pt the reason we might not haveinformed her yet could be because we are waiting to get every single one back before calling (culture viral is listed as in progress). documented in this encounter Plan of Treatment Not on file documented as of this encounter Visit Diagnoses Not on filedocumented in this encounter Care Teams Blow Pit Operator Relationship Specialty Start Date End Date Cuca Dutton FNP [address] [place] [address] PCP - General Nurse Practitioner Family 05/04/18 documented as of this encounter
--- OUTSIDE RECORDS SUMMARY | 2024-03-25 18:37 | XMS_ITS | Encounter Summary ---
Author Organization [facility] Address [address] [place] [address]. [place], [place] [address] [place] [address] Care Team Providers Care Collection Systems Foreman Name Role Phone Cuca Dutton Primary Care Provider [phone] Encounter Details Date Type Department Care Team (Latest Contact Info) Description 11/08/2019 Travel Social History Tobacco Use Types Packs/Day [...] on filedocumented in this encounter Care Teams Collection Systems Foreman Relationship Specialty Start Date End Date Cuca Dutton FNP [address] [place] [address] PCP - General Nurse Practitioner Family 05/04/18 documented as of this encounter
--- OUTSIDE RECORDS SUMMARY | 2024-03-25 18:37 | XMS_ITS | Encounter Summary ---
Author Organization [facility] Address [address] [place] [address]. [place], [place] [address] [place] [address] Care Team Providers Care Insurance Associate Name Role Phone Cuca Dutton Primary Care Provider [phone] Reason for Visit * Reason Onset Date Comments Vaginal Problem 03/02/2019 Encounter Details Date Type Department Care Team (Late st Contact Info) Description 03/02/2019 Telephone [facility] Medical Group Family & Internal Medicine [facility] [address] [place] [address] Cuca Dutton FNP [address] [place], [place] [phone] Vaginal Problem Social History Tobacco Use Types [...] Progress Notes * Norma Araujo MA - 03/02/2019 3:14 PM CST No answer and voicemail is full. rx sent RPRISE PROJECT MANAGER * CAROLYN Martin - 03/02/2019 2:51 PM CST 150 mg fluconazole take one tab now and repeat in 72 hours dsp 2 tabs Make sure she starts a probiotic supplement daily RPRISE PROJECT MANAGER * Emily Eason MA - 03/02/2019 2:02 PM CST Patient is asking for diflucan for a yeast infection. States that this is a recurrent issue. [facility] RPRISE PROJECT MANAGER documented in this encounter Plan of Treatment Not on file documented as of this encounter Visit Diagnoses Diagnosis Yeast infection- Primary Other and unspecified mycoses documented in this encounter Care Teams Insurance Associate Relationship Specialty Start Date End Date Cuca Dutton FNP [address] [place] [address] PCP - General Nurse Practitioner Family 05/04/18 documented as of this encounter
--- OUTSIDE RECORDS SUMMARY | 2024-03-25 18:37 | XMS_ITS | Encounter Summary ---
Author Organization [facility] Address [address] [place] [address]. [place], [place] [address] [place] [address] Care Team Providers Care Dietetics Professor Name Role Phone Cuca Dutton Primary Care Provider [phone] Encounter Details Date Type Department Care Team (Late st Contact Info) Description 05/08/2018 Orders Only [facility] Medical Group Family & Internal Medicine [address] [address] Norma Araujo MA Social History Tobacco Use Types Packs/Day Years [...] on filedocumented in this encounter Care Teams Dietetics Professor Relationship Specialty Start Date End Date Cuca Dutton FNP [address] [place] [address] PCP - General Nurse Practitioner Family 05/04/18 documented as of this encounter
--- OUTSIDE RECORDS SUMMARY | 2024-03-25 18:37 | XMS_ITS | Encounter Summary ---
Author Organization [facility] Address [address] [place] [address]. [place], [place] [address] [place] [address] Care Team Providers Care Calender Roll Press Operator Name Role Phone Cuca Dutton Primary Care Provider [phone] Encounter Details Date Type Department Care Team (Latest Contact Info) Description 11/15/2018 6:24 PM CDT - 11/15/2018 11:59 PM CDT Hospital Encounter [facility] [place] [address] Cuca Dutton FNP [address] [place], [place] [phone] Discharge Disposition: Home or Self Care (Routine [...] this encounter Medications at Time of Discharge doxycycline hyclate 100 MG capsuleIndicatio ns:Primary syphilis Take 1 capsule (100 mg total) by mouth 2 (two) times daily for 14 days. 28 capsule 11/15/2018 11/29/2018 FLUCELVAX 0.5 ML Suspension Prefilled Syringe ADM 0.5ML IM UTD 0 02/19/2018 11/08/2019 fluoxetine 20 MG capsuleIndicatio ns:Anxiety Take 2 capsules (40 mg total) by mouth daily. 30 capsule 6 09/18/2018 02/21/2019 documented as of this encounter Progress Notes * CAROLYN Martin - 11/15/2018 11:59 PM CDT Labs were normal. I am not sure why she got these lesions, but if they return or get worse after the antibiotics, we can send her over to [facility]. documented in this encounter Plan of Treatment Not on file documented as of this encounter Procedures Procedure Name Priority Date/Time Associated Diagnosis Comments HIV AG/AB, 4TH GEN W/RFX Routine 11/15/2018 9:39 AM CDT Primary syphilis [place], syphilitic Exposure to sexually transmitted disease (STD) HSV 1&2 IGM WI RFX TO TITER Routine 11/15/2018 9:39 AM CDT Primary syphilis [place], syphilitic Exposure to sexually transmitted disease (STD) SYPHILIS/RPR/VDRL; QUAL Routine 11/15/2018 9:39 AM CDT Primary syphilis [place], syphilitic Exposure to sexually transmitted disease (STD) CULTURE VIRAL Routine 11/15/2018 8:39 AM CDT Primary syphilis [place], syphilitic Exposure to sexually transmitted disease (STD) CULTURE RAPID HERPES AND VARICELLA Routine 11/15/2018 8:39 AM CDT CULTURE ADENOVIRUS Routine 11/15/2018 8: 39 AM CDT CULTURE, WOUND, W/GRAM STAIN Routine 11/15/2018 8:39 AM CDT Primary syphilis [place], syphilitic Exposure to sexually transmitted disease (STD) CHLAMYDIA AND GC RNA TMA Routine 11/15/2018 8:39 AM CDT Primary syphilis [place], syphilitic Exposure to sexually transmitted disease (STD) MISCELLANEOUS LAB TEST Routine 9 8:39 AM CDT MISCELLANEOUS LAB TEST Routine 9 8:39 AM CDT CULTURE CMV Routine 11/15/2018 8:39 AM CDT HEPATITIS C ANTIBODY Routine 11/15/2018 8:39 AM CDT Primary syphilis [place], syphilitic Exposure to sexually transmitted disease (STD) HEPATITIS B SURFACE AG, EIA Routine 11/15/2018 8:39 AM CDT Primary syphilis [place], syphilitic Exposure to sexually transmitted disease (STD) documented in this encounter Results * HSV 1&2 IGM WI RFX TO TITER (11/15/2018 9:39 AM CDT) Pathologist [facility] HSV 1 IGM SCREEN Negative Negative 11/20/19 19 4:03 PM CDT Huan Xiong NICHOLE GALLEGOS HSV 2 IGM SCREEN Negative Negative 11/20/19 19 4:03 PM CDT Huan Xiong ARIANEGIOVANA GALLEGOS Comment: The IFA procedure for measuring IgM antibodies to HSV 1 and HSV 2 detects both type-common and type-specific HSV antibodies. Thus, IgM reactivity to both HSV 1 and HSV 2 may represent crossreactive HSV antibodies rather than exposure to both HSV 1 and HSV 2. This test was developed and its analytical performance characteristics have been determined by [place]. It has not been cleared or approved by the FDA. This assay has been validated pursuant to the CLIA regulations and is used for clinical purposes. HSV 1 IGM TITER REPORT 9 4:03 PM CDT [employer] MARY GALLEGOS Comment:Not indicated HSV 2 IGM TITER REPORT 9 4:03 PM CDT [employer] MARY GALLEGOS Comment: Not indicated Test Performed by RIGIDDennis, [employer] [place], [address] [place], [place] Morales Bill M.D., Ph.D., Director of Laboratories , CLIA [id number] 11/15/2018 9:39 AM CDT [facility] Final Result [facility] [address] [place] [address], [place] [phone] * HIV AG/AB, 4TH GEN W/RFX ([facility] ONLY) (11/15/2018 9:39 AM CDT) HIV 1/2 AB+ HIV1 P24 AG REPORT 11/18/2018 2:16 PM CDT Huan Xiong THAKKARChandrikaGIOVANA ROSY Comment: HIV Ag/Ab, 4th Generation ??Non-reactive Reference [...] old. For additional information, please refer to http://education.Tranz.[employer]/faq/YAB190 Test Performed by Dennis Tatum [employer] [place], [address] [place], [place] Bill M.D., Ph.D., Director of Laboratories , CLIA [id number] 11/15/2018 9:39 AM CDT Cuca [facility] Final Result Performing Organization Address [facility] Co de Phone Number [facility] [address] [place], [place] , [place] [phone] * SYPHILIS/RPR/VDRL; QUAL (11/15/2018 9:39 AM CDT) Pathologist [facility] RPR Nonreactive Nonreactive 11/18/2018 5:29 PM CDT [facility]NAL RPR TITER REPORT 11/18/2018 5:29 PM CDT Huan Xiong LORRIE SYED Comment: Not indicated. Test Performed by [employer] [place], [employer] [place], [address] [place] [address] [place] Bill M.D., Ph.D., Director of Laboratories , [place] [id number] 11/15/2018 9:39 AM CDT Cuca Dutton [facility] Final Result Performing Organization Address [facility] Co de Phone Number Huan Xiong [facility] [address] [place], [place] , [place] [phone] * MISCELLANEOUS LAB TEST (11/15/2018 8:39 AM CDT) Pathologist [facility] TEST NAME: [id number] HERPES SIMPLEX VIRUS TYPE 1 AND 2 QUALITATIVE REAL TIME PCR 11/23/2018 3:41 PM CDT [facility] SPECIMEN TYPE SWAB 11/23/2018 3:45 PM CDT [facility] TEST RESULT: 11/23/2018 3:45 PM CDT [facility] Comment: HSV 1 DNA: ?Not Detected ? HSV 2 DNA: ?Not Detected This test was developed and its analytical performance characteristics have been determined by [employer] [place], [place]. It has not been cleared or approved by the U.S. Food and Drug Administration. This assay has been validated pursuant to the CLIA regulations and is used for clinical purposes. 11/15/2018 8:39 AM CDT Cuca Dutton [facility] Final Result Performing Organization Address [facility] de Phone Number [facility] [address] [place] [address], * MISCELLANEOUS LAB TEST (11/15/2018 8:39 AM CDT) Pathologist [facility] TEST NAME: [id number] VARICELLA ZOSTER VIRUS DNA REAL TIME PCR 11/23/2018 3:38 PM CDT [facility] SPECIMEN TYPE SWAB 11/23/2018 3:44 PM CDT [facility] TEST RESULT: 11/23/2018 3:44 PM CDT [facility] Comment: Not Detected This test was developed and its analytical performance characteristics have been determined by [employer] [place], [place]. It has not been cleared or approved by the FDA. This assay has been validated pursuant to the CLIA regulations and is used for clinical purposes. This test is performed pursuant to a license agreement with [facility] 11/15/2018 8:39 AM CDT us Cuca Dutton [facility] Final Result Performing Organization Address [facility] Co de Phone Number [facility] [address] [place] [address], * CULTURE CMV (11/15/2018 8:39 AM CDT) [facility] CYTOMEGALOVIRUS CULTURE REPORT 11/22/2018 5:05 PM CDT Huan Xiong NICHOLE GALLEGOS Comment: Cytomegalovirus Rapid Culture SOURCE : NOT SUPPLIED RESULT ?Not Isolated ? Reference Range: Not Isolated This test was developed and its analytical performance characteristics have been determined by [place]. It has not been cleared or approved by the U.S. Food and Drug Administration. This assay has been validated pursuant to the CLIA regulations and is used for clinical purposes. Test Performed by [facility] [employer] [place], [address] [place] [address] [place]ales Bill M.D., Ph.D., Director of Laboratories , CLIA [id number] 11/15/2018 8:39 AM CDT Cuca Dutton [facility] MICROBIOLOGY - GENERAL ORDERAB LES Final Result Performing Organization Address City/[facility]/ZIP Co de Phone Number Huan Xiong [address] , * CULTURE RAPID HERPES AND VARICELLA (11/15/2018 8:39 AM CDT) HSV /VZV RAPID CULT REPORT 11/21/2018 11:42 AM CDT Huan Xiong MAHOGANY DOMINIK Comment: Herpes simplex/Varicella zoster virus Rapid Cult SOURCE : NOT SUPPLIED Test Not Performed due to reagent or kit unavailability. Test Performed by [facility] [employer] [place], [address] [place] [address] [place] Bill M.D., Ph.D., Director of Laboratories , CLIA [id number] 11/15/2018 8:39 AM CDT Cuca Dutton [facility] MICROBIOLOGY - GENERAL ORDERAB LES Final Result Performing Organization Address City/[facility]/ZIP Co de Phone Number [facility] [address] [place], [place] , [place] [phone] * CULTURE ADENOVIRUS (11/15/2018 8:39 AM CDT) Pathologist [facility] ADENOVIRUS CULTURE REPORT 11/20/2018 4:51 PM CDT Huan Xiong MAHOGANY DOMINIK Comment: Adenovirus Culture SOURCE : NOT SUPPLIED RESULT ?Not Isolated ? Reference Range: Not Isolated Adenovirus types 40 and 41 may not be isolated from culture. This test was developed and its analytical performance characteristics have been determined by [employer] [place], [place]. It has not been cleared or approved by the U.S. Food and Drug Administration. This assay has been validated pursuant to the CLIA regulations and is used for clinical purposes. Test Performed by RIGID Dennis, [employer] [facility], [address] [place], [place] Bill M.D., Ph.D., Director of Laboratories , CLIA [id number] 11/15/2018 8:39 AM CDT us Cuca Dutton CRAFT COORDINATOR MICROBIOLOGY - GENERAL ORDERAB LES Final Result Huan Xiong [facility] [address] [place] [address], [place] [phone] * CULTURE, WOUND, W/GRAM STAIN (11/15/2018 8:39 AM CDT) Pathologist [facility] SPEC DESCRIPTION LABIAL 11/15/2018 6:26 PM CDT [facility] SPECIAL REQUESTS NO SPECIAL REQUEST 11/15/2018 6:26 PM CDT [facility] GRAM STAIN RESULT NO WHITE BLOOD CELLS SEEN 11/16/2018 3:18 PM CDT [facility] GRAM STAIN RESULT RARE EPITHELIAL CELLS SEEN 11/16/2018 3:18 PM CDT [facility] GRAM STAIN RESULT MODERATE GRAM POSITIVE RODS RESEMBLING LACTOBACILLUS SPECIES 11/16/2018 3:18 PM CDT [facility] CULTURE RESULT SPARSE GROWTH OF NORMAL SAÚL PRESENT 11/19/2018 9:12 AM CDT [facility] CULTURE RESULT NOTE: WOUND AND TISSUE CULTURES ARE ROUTINELY SCREENED FOR AEROBIC ORGANISMS ONLY. 11/19/2018 9:12 AM CDT [facility] GENITAL LABIUM STRUCTURE / Unknown 11/15/2018 8:39 AM CDT 11/15/2018 7:46 PM CDT us Cuca Dutton CRAFT COORDINATOR MICROBIOLOGY - GENERAL ORDERAB LES Final Result [facility] [address] [place] [address], [place] [phone] * CULTURE VIRAL (11/15/2018 8:39 AM CDT) SPECIMEN SOURCE LABIA 9 1:33 PM CDT [facility] Preliminary Diagnosis: UNKNOWN 11/16/2018 1:33 PM CDT [facility] SUSPECTED VIRUSUS: UNKNOWN 11/16/2018 1:33 PM CDT [facility] RELAVANT VACCINATION: UNKNOWN 11/16/2018 1:33 PM CDT [facility] BRIEF HISTORY UNKNOWN UNKNOWN 11/16/2018 1:33 PM CDT [facility] COMPREHENSIVE VIRUS CULTURE REPORT 11/23/2018 5:44 PM CDT [employer] MARY GALLEGOS Comment: Viral Rapid Cultures ?Have been added Enterovirus Culture SOURCE : NOT SUPPLIED RESULT ?Not Isolated Reference range: ??Not Isolated The current Enterovirus culture system does not detect Enterovirus D68. If Enterovirus D68 is suspected, please call client services to add Enterovirus RNA, Qualitative, Real-Time PCR (test code 31089). Test Performed by RIGIDDennis, [employer] [facility], [address] [place], [place] Bill M.D., Ph.D., Director of Laboratories , [place] [id number] GENITAL LABIUM STRUCTURE / Unknown 11/15/2018 8:39 AM CDT Cuca Nato [facility] MICROBIOLOGY - GENERAL ORDERAB LES Final Result Huan Xiong [facility] [address] [place], [place] , [place] [phone] [facility] [address] [place] [address], [place] [phone] * CHLAMYDIA AND GC RNA TMA (11/15/2018 8:39 AM CDT) SPEC DESCRIPTION URINE VOIDED 11/15/2018 7:45 PM CDT [facility] CHLAMYDIA RNA TMA NEGATIVE NEGATIVE 11/17/2018 2:45 PM CDT [facility] Comment: A NEGATIVE RESULT DOES NOT PRECLUDE THE PRESENCE OF A CT INFECTION BECAUSE RESULTS ARE DEPENDENT ON ADEQUATE SPECIMEN COLLECTION, ABSENCE OF INHIBITORS, AND SUFFICIENT rRNA TO BE DETECTED. N.GONORRHOEAE RNA TMA NEGATIVE NEGATIVE 11/17/2018 2:45 PM CDT [facility] Comment: A NEGATIVE RESULT DOES NOT PRECLUDE THE PRESENCE OF A GC INFECTION BECAUSE RESULTS ARE DEPENDENT ON ADEQUATE SPECIMEN COLLECTION, ABSENCE OF INHIBITORS, AND SUFFICIENT rRNA TO BE DETECTED. URINE SPECIMEN / Unknown 11/15/2018 8:39 AM CDT Cuca Dutton [facility] MICROBIOLOGY - GENERAL ORDERAB LES Final Result [facility] [address] [place] [address], [place] [phone] [facility] [address] [place] [address], [place] [phone] * HEPATITIS C ANTIBODY (11/15/2018 8:39 AM CDT) HEPATITIS C AB NON-REACTI VE NON-REACTI VE 11/15/2018 9:43 PM CDT [facility] 11/15/2018 8:39 AM CDT [facility] Final Result [facility] [address] [place] [address], [place] [phone] * HEPATITIS B SURFACE AG, EIA (11/15/2018 8:39 AM CDT) HEPATITIS B SURFACE AG NON-REACTI VE NON-REACTI VE 11/15/2018 9:15 PM CDT [facility] 11/15/2018 8:39 AM CDT [facility] Final Result [facility] [address] [place] [address], [place] [phone] documented in this encounter Visit Diagnoses Diagnosis Primary syphilis Early syphilis, genital (primary) [place], syphilitic Early syphilis, genital (primary) Exposure to sexually transmitted disease (STD) Contact with or exposure to other communicable diseases documented in this encounter Care Teams Calender Roll Press Operator Relationship Specialty Start Date End Date Cuca Dutton FNP [address] [place] [address] PCP - General Nurse Practitioner Family 05/04/18 documented as of this encounter
--- OUTSIDE RECORDS SUMMARY | 2024-03-25 18:37 | XMS_ITS | Encounter Summary ---
Author Organization [facility] Address [facility]. [place], [place] [address] [place] [address] Care Team Providers Care Electronic Gaming Device Supervisor Name Role Phone Cuca Dutton Primary Care Provider [phone] Encounter Details Date Type Department Care Team (Late st Contact Info) Description 11/15/2018 Orders Only [facility] Medical Group Family & Internal Medicine [facility] [address] [place] [address] Norma Araujo MA Social History Tobacco Use [...] on filedocumented in this encounter Care Teams Electronic Gaming Device Supervisor Relationship Specialty Start Date End Date Cuca Dutton FNP [address] [place] [address] PCP - General Nurse Practitioner Family 05/04/18 documented as of this encounter
--- OUTSIDE RECORDS SUMMARY | 2024-03-25 18:37 | XMS_ITS | Encounter Summary ---
Author Organization [facility] Address [address] [place] [address]. [place], [place] [address] [place] [address] Care Team Providers Care Prototype Sewer Name Role Phone Cuca Dutton CAROLYN Primary Care Provider [phone] Reason for Visit * Reason Comments CT (SCAN) Ultrasound (SCAN) Encounter Details Date Type Department Care Team ([facility] Contact Info) Description 09/05/2018 Scan [facility] Scanned, Documents CT (SCAN); Ultrasound (SCAN) Social History Tobacco Use Types Packs/Day [...] Procedure Name Priority Date/Time Associated Diagnosis Comments CT GENERIC Routine 09/05/2018 ULTRASOUND GENERIC (SCAN ORDER) Routine 09/05/2018 documented in this encounter Results * ULTRASOUND (09/05/2018) Anatomical Region Laterality Modality Other us Documents Scanned SCANNING Edited Result - Final * CT (09/05/2018) Anatomical Region Laterality Modality Other us Documents Scanned SCANNING Edited Result - Final documented in this encounter Visit Diagnoses Not on filedocumented in this encounter Care Teams Prototype Sewer Relationship Specialty Start Date End Date Cuca Dutton FNP [address] [place] [address] PCP - General Nurse Practitioner Family 05/04/18 documented as of this encounter
--- OUTSIDE RECORDS SUMMARY | 2024-03-25 18:37 | XMS_ITS | Encounter Summary ---
Author Organization [facility] Address [address] [place] [address]. [address] [address] Care Team Providers Care Product Support Specialist Name Role Phone Unavailable Primary Care Provider Unavailabl e Encounter Details Date Type Department Care Team (Latest Contact Info) Description 10/25/2017 Abstract [facility] Medical Group Social History Tobacco Use Types Packs/Day [...]
--- OUTSIDE RECORDS SUMMARY | 2024-03-25 18:37 | XMS_ITS | Encounter Summary ---
Author Organization [facility] Address [facility]. [place], [place] [address] [place] [address] Care Team Providers Care House Fellow Name Role Phone Cuca Dutton Primary Care Provider [phone] Encounter Details Date Type Department Care Team (Late st Contact Info) Description 06/08/[address] [facility] Medical Group Family & Internal Medicine - [place] [address] [place] [address] Norma Araujo MA Social History Tobacco Use [...] on filedocumented in this encounter Care Teams House Fellow Relationship Specialty Start Date End Date Cuca Dutton FNP [address] [place] [address] PCP - General Nurse Practitioner Family 05/04/18 documented as of this encounter
--- OUTSIDE RECORDS SUMMARY | 2024-03-25 18:37 | XMS_ITS | Encounter Summary ---
Author Organization [facility] Address [address] [place] [address]. [place], [place] [address] [place] [address] Care Team Providers Care Casino Manager Name Role Phone Cuca Dutton Primary Care Provider [phone] Encounter Details Date Type Department Care Team (Latest Contact Info) Description 11/08/2019 Scan [facility] Scanned, Documents [...] on filedocumented in this encounter Care Teams Casino Manager Relationship Specialty Start Date End Date Cuca Dutton FNP [address] [place] [address] PCP - General Nurse Practitioner Family 05/04/18 documented as of this encounter
--- OUTSIDE RECORDS SUMMARY | 2024-03-25 18:37 | XMS_ITS | Encounter Summary ---
Author Organization [facility] Address [address] [place] [address]. [place], [place] [address] [place] [address] Care Team Providers Care Weatherization Operations Manager Name Role Phone Unavailable Primary Care Provider Unavailabl e Encounter Details Date Type Department Care Team (Late st Contact Info) Description 04/29/[address] [facility] [address] [place], [place] [address] , Kris Cano MD Social History Tobacco Use Types Packs/Day [...]
--- OUTSIDE RECORDS SUMMARY | 2024-03-25 18:37 | XMS_ITS | Encounter Summary ---
Author Organization [facility] Address [facility]. [place], [place] [address] [place] [address] Care Team Providers Care Calibrator Barometers Name Role Phone Cuca Dutton Primary Care Provider [phone] Encounter Details Date Type Department Care Team (Late st Contact Info) Description 09/18/2018 Orders Only [facility] Family & Internal Medicine [facility] [address] [place] [address] Norma Araujo MA Social History Tobacco Use [...] on filedocumented in this encounter Care Teams Calibrator Barometers Relationship Specialty Start Date End Date Cuca Dutton FNP [address] [place] [address] PCP - General Nurse Practitioner Family 05/04/18 documented as of this encounter
--- OUTSIDE RECORDS SUMMARY | 2024-03-25 18:37 | XMS_ITS | Encounter Summary ---
Author Organization [facility] Address [address] [place] [address]. [place], [place] [address] [place] [address] Care Team Providers Care High School Chemistry Teacher Name Role Phone Cuca Dutton Primary Care Provider [phone] Reason for Visit * Reason Onset Date Comments Refill Request 08/28/2019 Encounter Details Date Type Department Care Team (Late st Contact Info) Description 08/28/2019 Telephone [facility] Family & Internal Medicine [facility] [address] [place] [address] Cuca Dutton FNP [address] [place], [place] [phone] Refill Request Social History Tobacco Use Types [...] Progress Notes * Isela Matos MA - 08/28/2019 11:48 AM CDT Patient informed and v/u, rx sent to pharmacy * MYRIAM Diamond - 08/28/2019 10:15 AM CDT Can send over diflcucan 150 mg. One PO X 1. #1 no refills * Kristan Hull MA - 08/28/2019 9:27 AM CDT Pt is calling in to say that she just finished up an antibiotic and doesn't remember the name of it. Pt said it always gives her a yeast infection and Cuca always calls in something for her. Pt would like a script for this. Preferred pharm-[facility] documented in this encounter Plan of Treatment Not on file documented as of this encounter Visit Diagnoses Diagnosis Yeast infection- Primary Other and unspecified mycoses documented in this encounter Care Teams High School Chemistry Teacher Relationship Specialty Start Date End Date Cuca Dutton FNP [address] [place] [address] PCP - General Nurse Practitioner Family 05/04/18 documented as of this encounter
--- OUTSIDE RECORDS SUMMARY | 2024-03-25 18:37 | XMS_ITS | Encounter Summary ---
Author Organization [facility] Address [address] [place] [address]. [place], [place] [address] [place] [address] Care Team Providers Care Plant Pathologist Name Role Phone Cuca Dutton Primary Care Provider [phone] Reason for Visit * Reason Onset Date Comments Vaginal Problem 12/04/2018 Encounter Details Date Type Department Care Team (Late st Contact Info) Description 12/04/[address] [facility] Family & Internal Medicine [place] [id number] [place] [address] Cuca Dutton FNP [address] [place] [address] Vaginal Problem Social History Tobacco [...] Progress Notes * Corry Degroot RN - 12/04/2018 2:15 PM CDT Spoke to patient; verbalized understanding. rx sent. Skin lesion has been gone for a while per patient. * CAROLYN Martin - 12/04/2018 10:21 AM CDT Okay for fluconazole 150 mg take one now and may repeat in 72 hours. Dsp 2 tablets. Did her skin lesion go away. * Emily Eason MA - 12/04/2018 8:54 AM CDT Patient requesting diflucan , she just finished abx treatment and now has yeast infection. Please advise gualberto hay #[phone] documented in this encounter Plan of Treatment Not on file documented as of this encounter Visit Diagnoses Diagnosis Yeast infection of the vagina- Primary Candidiasis of vulva and vagina documented in this encounter Care Teams Plant Pathologist Relationship Specialty Start Date End Date Cuca Dutton FNP [address] [place] [address] PCP - General Nurse Practitioner Family 05/04/18 documented as of this encounter
--- OUTSIDE RECORDS SUMMARY | 2024-03-25 18:37 | XMS_ITS | Encounter Summary ---
Author Organization [facility] Address Counts include 234 beds at the [facility]. [place], [place] [address] [place] [address] Care Team Providers Care All Source Analyst Name Role Phone Unavailable Primary Care Provider Unavailabl e Encounter Details Date Type Department Care Team (Latest Contact Info) Description 12/22/2017 Abstract [facility] Medical [facility] , Generic ConversionMD Social History Tobacco Use Types Packs/Day Years Used Date Smoking Tobacco: Never Assessed Comments Unknown Sex and Gender Information Value Date Recorded Sex Assigned at Not on file Legal Sex Female 8:44 PM CDT Gender Identity Not on file Sexual Orientation Not on file documented as of this encounter Progress Notes * Generic Conversion MD Niyah - 12/22/2017 1:26 PM CDT Message Recorded as Task Date: 12/20/2017 11:47 AM, Created By: Norma Araujo Task Name: Medical Complaint [facility]back [facility] Regarding Patient: Stephanie Coates, Status: In Progress Comment: Norma Araujo - 20 Dec 2017 11:47 AM TASK CREATED Patients mom called and is requesting an increase on the sertraline. States you guys discussed thisat last appointment. Same pharmacy as before per mom. Cuca Helms 20 Dec 2017 1:17 PM TASK EDITED I believe she is on 25mg daily, lets increase this to 50mg daily. Cyndi Wakefield 20 Dec 2017 2:42 PM TASK IN PROGRESS Cyndi Wakefield 20 Dec 2017 2:49 PM TASK EDITED rx sent to pharmacy Cyndi Wakefield 21 Dec 2017 11:24 AM TASK EDITED attempted to call patients mother to inform - box full Cyndi Wakefield 22 Dec 2017 1:26 PM TASK EDITED attempted to call again - vm box full Signatures Electronically signed by : Cyndi Wakefield, ; Dec 22 2017 1:27PM SOFTWARE DEVELOPER INTERN (Author) documented in this encounter Plan of Treatment Not on file documented as of this encounter Visit Diagnoses Not on filedocumented in this encounter
--- OUTSIDE RECORDS SUMMARY | 2024-03-25 18:37 | XMS_ITS | Encounter Summary ---
Author Organization [facility] Address [address] [place] [address]. [place], [place] [address] [place] [address] Care Team Providers Care Delicatessen Store Manager Name Role Phone Cuca Dutton Primary Care Provider [phone] Encounter Details Date Type Department Care Team (Latest Contact Info) Description 11/15/2018 Scan [facility] Scanned, Documents [...] on filedocumented in this encounter Care Teams Delicatessen Store Manager Relationship Specialty Start Date End Date Cuca Dutton FNP [address] [place] [address] PCP - General Nurse Practitioner Family 05/04/18 documented as of this encounter
--- OUTSIDE RECORDS SUMMARY | 2024-03-25 18:37 | XMS_ITS | Encounter Summary ---
Author Organization [facility] Address [address] [place] [address]. [place], [place] [address] [place] [address] Care Team Providers Care Sales Lead Generator Name Role Phone Cuca Dutton Primary Care Provider [phone] Reason for Visit * Reason Comments ER F/U sepsis Encounter Details Date Type Department Care Team (Late st Contact Info) Description 09/18/2018 1:20 PM CDT Office Visit [facility] Family & Internal Medicine - [place] [address] [place] [address] Cuca Dutton FNP [address] [place], [place] [phone] ER F/U (sepsis) Social History Tobacco Use Types Packs/Day Years [...] Sign Reading Time Taken Comments Blood Pressure 125/83 09/18/2018 1:36 PM CDT Pulse 74 09/18/2018 1:36 PM CDT Temperature - - Respiratory Rate 16 09/18/2018 1:36 PM CDT Oxygen Saturation 100% 09/18/2018 1:36 PM CDT Inhaled Oxygen Concentration - - Weight 59.4 kg (131 lb) 09/18/2018 1:36 PM CDT Height 162.6 cm (5' 4 ) 09/18/2018 1:36 PM CDT Body Mass Index 22.49 09/18/2018 1:36 PM CDT Body Mass Index Percentile 62.46% 09/18/2018 1:3 6 PM CDT Growth Chart: [facility] (Girls, 2- 20 Years) documented in this encounter Patient Instructions * Patient Instructions* CAROLYN Martin - 09/18/2018 1:20 PM CDT Start the increased dose of Fluoxetine for your anxiety. Let me know if you have any issues with this medication change. Drink plenty of water. Call for any questions or concerns Follow up routinely or sooner if needed documented in this encounter Progress Notes * CAROLYN Martin - 09/18/2018 1:20 PM CDT Office Progress Note Reason for Visit: ER F/U (sepsis) [facility] call:09/08/2018 Admitted 09/06/2018 Discharged:09/07/2018 Admitting diagnosis pyelonephritis Discharge diagnosis: pyelonephritis History of Present Illness: Stephanie presents to the office for a f/u of her recent hospitalization for pyelonephritis. She was seen here on the day she went to the ER for a UTI. I did send out antibiotics and she reports that she took one dose but her back and abdominal pain worsened. She also felt like she had a fever and body aches. When she went into the ER, she reported pain and a high WBC and was admitted for pyelonephritis. She reports that they gave her IV antibiotics and fluids for 24 hours and then sent her home. She reports that today she is doing well and feeling much better. Her symptoms have resolved. She is wanting to see if we can increase her fluoxetine dose. She feels like her anxiety has increased and that and this medication has helped in the past but seems less effective than it has been. She denies any SI or HI presently. ROS: Review of Systems Constitutional: Negative for chills, fever and weight loss. HENT: Negative for congestion, ear discharge, ear pain, hearing loss, nosebleeds, sinus pain, sore throat and tinnitus. Eyes: Negative for blurred vision, double vision, photophobia, pain, discharge and redness. Respiratory: Negative for cough, hemoptysis, sputum production, shortness of breath and wheezing. Cardiovascular: Negative for chest pain, palpitations, orthopnea, [...] nervous/anxious and does not have insomnia. Medications: No current outpatient medications on file prior to visit. No current facility-administered medications on file prior [...] file Gets together: Not on file Attends denominational service: Not on file Active member of [...] external ear normal. Nose: Nose normal. Mouth/Throat: Uvula is midline, oropharynx is clear and moist and mucous membranes are normal. Eyes: Conjunctivae, EOM and lids are normal. Pupils are equal, round, and reactive to light. Neck: Trachea normal, normal range of motion and full passive range of motion without pain. Neck supple. Normal carotid pulses present. Carotid bruit is not present. No tracheal deviation present. Nothyroid mass and no thyromegaly present. Cardiovascular: Normal rate, regular rhythm, normal heart sounds and intact distal pulses. Exam reveals no gallop and no friction rub. No murmur heard. Pulmonary/Chest: Effort normal and breath sounds normal. No accessory muscle usage. No respiratory distress. She has no decreased breath sounds. She has no wheezes. She has no rhonchi. She has no rales. Abdominal: Soft. Normal appearance and bowel sounds are normal. She exhibits no distension and no mass. There is no hepatosplenomegaly. There is no tenderness. There is no rebound, no guarding and noCVA tenderness. Musculoskeletal: Normal range of motion. She exhibits [...] Nursing note and vitals reviewed. Filed Vitals: 09/18/18 1336 BP: 125/83 Pulse: 74 Resp: 16 SpO2: 100% Weight: 59.4 kg (131 lb) Height: 5' 4 (1.626 m) Diagnoses/Impression: 1. Acute pyelonephritis URINALYSIS AUTO DIP 2. Anxiety fluoxetine 20 MG capsule 3. Pyelonephritis 4. Hospital discharge follow-up Recommendations and Plan: 1. Acute pyelonephritis - URINALYSIS AUTO DIP 2. Anxiety - fluoxetine 20 MG capsule; Take 2 capsules (40 mg total) by mouth daily. Dispense: 30 capsule; Refill: 6 3. Pyelonephritis 4. Hospital discharge follow-up Orders Placed This Encounter ??? URINALYSIS AUTO DIP ??? fluoxetine 20 MG capsule Cannot display discharge medications since this is not an admission. PCP: CAROLYN VALENZUELA 09/20/2018 documented in this encounter Plan of Treatment Not on file documented as of this encounter Procedures Procedure Name Priority Date/Time Associated Diagnosis Comments URINALYSIS AUTO DIP Routine 09/18/2018 Acute pyelonephritis documented in this encounter Results * URINALYSIS AUTO DIP (09/18/2018) COLOR (U) YELLOW [facility] TRANSPARENCY CLEAR [facility] GLUCOSE (U) NEGATIVE NEGATIVE MG/DL [facility] BILIRUBIN (U) NEGATIVE NEGATIVE [facility] KETONES MG/DL (U) NEGATIVE NEGATIVE MG/DL [facility] SPECIFIC GRAVITY (U) 1.015 1.001 - 1.035 [facility] BLOOD (U) NEGATIVE NEGATIVE [facility] U PH 7.5 5.0 - 9.0 [facility] PROTEIN (U) NEGATIVE NEGATIVE mg/dL [facility] UROBILINOGEN 0.2 0.2 - 1.0 EU/dL = mg/dL [facility] NITRITES NEGATIVE NEGATIVE MG/DL -[facility] LEUKOCYTES (U) NEGATIVE NEGATIVE MG-SO [facility] URINE SPECIMEN OBTAINED BY CLEAN CATCH PROCEDURE / Unknown 09/18/2018 us Cuca LEON URINE ORDERABLES Final Result -[facility] [address] [place] [address], documented in this encounter Visit Diagnoses Diagnosis Acute pyelonephritis- Primary Acute pyelonephritis without lesion of renal medullary necrosis Anxiety Anxiety state, unspecified Pyelonephritis Pyelonephritis, unspecified Hospital discharge follow-up Other follow-up examination documented in this encounter Care Teams Sales Lead Generator Relationship Specialty Start Date End Date Cuca Dutton FNP [address] [place] [address] PCP - General Nurse Practitioner Family 05/04/18 documented as of this encounter
--- OUTSIDE RECORDS SUMMARY | 2024-03-25 18:37 | XMS_ITS | Encounter Summary ---
Author Organization [facility] Address [address] [place] [address]. [place], [place] [address] [place] [address] Care Team Providers Care Central Office Inspector Name Role Phone Cuca Dutton Primary Care Provider [phone] Reason for Visit * Reason Onset Date Comments Advise 04/16/2019 Encounter Details Date Type Department Care Team (Late st Contact Info) Description 04/16/[address] [facility] Family & Internal Medicine [facility] [address] [place] [address] Cuca Dutton FNP [address] [place], [place] [phone] Advise Social History Tobacco Use Types Packs/Day Years [...] Progress Notes * Emily Eason MA - 04/17/2019 2:18 PM CST Patient notified and v/u MATION CONTROLS ENGINEER * Zita Samuels MA - 04/17/2019 1:48 PM CST 04-17-19 unable to lmtc mailbox full MATION CONTROLS ENGINEER MATION CONTROLS ENGINEER * CAROLYN Martin - 04/17/2019 1:37 PM CST Okay she should let us know what the dinkey mechanic advised her to do and we can go from there. MATION CONTROLS ENGINEER * Montserrat Herron - 04/17/2019 12:09 PM CST Pt called in. Said she would contact the office she had this done at. She had an implant years ago and had no problems but this second implant now she had to wear a tampon every day for a week which was not how the first implant went. She is still wanting the other control since she has a feeling this one might need replaced. MATION CONTROLS ENGINEER * Corry Degroot RN - 04/17/2019 10:04 AM CST Mail box full 04/17/19 MATION CONTROLS ENGINEER * Emily Eason MA - 04/16/2019 5:16 PM CST Mail box full 04/16/19 MATION CONTROLS ENGINEER * CAROLYN Martin - 04/16/2019 4:56 PM CST Did she call the office that placed the contraceptive? I am okay with this but usually she should call the ones who placed it. MATION CONTROLS ENGINEER * Kristan Hull MA - 04/16/2019 9:40 AM CST Pt has nexplanon (it's been in for 6 months). Pt has been heavy bleeding for the past week and thisis the 1st time she has bled since having it in. Pt states that this happened to her friend and shewas prescribed an additional control to help with this. Please advise. Preferred pharm [facility] MATION CONTROLS ENGINEER documented in this encounter Plan of Treatment Not on file documented as of this encounter Visit Diagnoses Not on filedocumented in this encounter Care Teams Central Office Inspector Relationship Specialty Start Date End Date Cuca Dutton FNP [address] [place] [address] PCP - General Nurse Practitioner Family 05/04/18 documented as of this encounter
--- OUTSIDE RECORDS SUMMARY | 2024-03-25 18:37 | XMS_ITS | Encounter Summary ---
Author Organization [facility] Address [address] [place] [address]. [place], [place] [id number] [place] [id number] Care Team Providers Care Oil Pipe Inspector Helper Name Role Phone Cuca Dutton Primary Care Provider [phone] Reason for Visit * Reason Comments Vaginal Problem x 2 months Encounter Details Date Type Department Care Team (Late st Contact Info) Description 05/08/2018 1:40 PM ARCHIVIST POLITICAL HISTORY Office Visit [facility] Group Family & Internal Medicine - [place] [address] [place] [address] Cuca Dutton FNP [address] [place] [address] Vaginal Problem (x 2 months) Social History Tobacco Use Types Packs/Day Years Used Date Smoking Tobacco: Never Assessed Comments No Sex and Gender Information Value Date Recorded Sex Assigned at Not on file Legal Sex Female 8:44 PM CDT Gender Identity Not on file Sexual Orientation Not on file documented as of this encounter Last Filed Vital Signs Vital Sign Reading Time Taken Comments Blood Pressure 130/69 05/08/2018 2:02 PM ARCHIVIST POLITICAL HISTORY Pulse 82 05/08/2018 2:02 PM ARCHIVIST POLITICAL HISTORY Temperature - - Respiratory Rate 16 05/08/2018 2:02 PM ARCHIVIST POLITICAL HISTORY Oxygen Saturation 99% 05/08/2018 2:02 PM ARCHIVIST POLITICAL HISTORY Inhaled Oxygen Concentration - - Weight 62.1 kg (137 lb) 05/08/2018 2:02 PM ARCHIVIST POLITICAL HISTORY Height 162.6 cm (5' 4 ) 05/08/2018 2:02 PM ARCHIVIST POLITICAL HISTORY Body Mass Index 23.52 05/08/2018 2:02 PM ARCHIVIST POLITICAL HISTORY Body Mass Index Percentile 72.70% 05/08/2018 2:0 2 PM ARCHIVIST POLITICAL HISTORY Growth Chart: CDC (Girls, 2- 20 Years) documented in this encounter Patient Instructions * Patient Instructions* Cuca Dutton, EQUAL OPPORTUNITY DIRECTOR - 05/08/2018 1:40 PM ARCHIVIST POLITICAL HISTORY Patient Education Patient Education Vaginitis About this topic Vaginitis is the redness and swelling of the vagina and the area outside of the vagina. The condition may also be called vulvovaginitis. Your vagina joins the uterus or womb with the outside of your body. What are the causes? Vaginitis may be caused by: ?? An infection ?? Irritation from soaps, bubble baths, douches, or other chemicals ?? Not being clean ?? A change in hormones with , , or menopause ?? Drugs like antibiotics or steroids ?? Sexual intercourse ?? Diabetes that is not controlled ?? A weak immune system What can make this more likely to happen? Vaginitis is common in women. You are more likely to have vaginitis if you: ?? Take bubble baths ?? Use feminine hygiene sprays or perfumed soaps ?? Wear clothes that are tight or wet ?? Do not dry your vaginal area well after taking a bath What are the main signs? Your vaginal area may itch, burn, or feel painful. You may have some kind of discharge from your vagina or there may be none at all. There may be a bad smell coming from your vaginal area. How does the doctor diagnose this health problem? Your doctor will take your history. Your doctor will do an exam of the pelvic area. Based on the problem, your doctor may need to do a pelvic exam. The doctor may order: ?? Lab tests ?? Urine tests How does the doctor treat this health problem? Your care depends on the cause of your vaginitis. What drugs may be needed? The doctor may order drugs to: ?? Help with pain and swelling ?? Fight an infection What can be done to prevent this health problem? ?? Do not wear clothes that may hold moisture, such as nylon or polyester. Wear cotton underwear. ?? Wear loose-fitting pants or other clothes. Avoid wearing underwear while you sleep. This can help keep your vaginal area dry. ?? Clean your vaginal area with water. If you use soap, be sure it is mild and rinse well. Pat the area dry with a clean towel. Do not use bubble baths or douche. ?? Wipe from front to back after using the toilet. ?? If you have sex, use latex condoms each time to lower spread of infection. Avoid multiple sex partners. Where can I learn more? The [place] [employer] http://www.acog.org/Patients/FAQs/Vaginitis National [place] [employer] http://www.nichd.nih.gov/health/topics/vaginitis/conditioninfo/Pages/default.asp x Last Reviewed Date 2017-01-21 Consumer Information Use and Disclaimer This information [...] is right for you. Copyright Copyright ?? 2018 [employer]. and its affiliates and/or licensors. All rights reserved. Patient Education Patient Education Probiotics What is this product used for? Probiotics are kinds of bacteria that normally live in the stomach and gut of healthy people. Some people take this product to help with gut problems like irritable bowel syndrome. Others use it for other health problems like high blood pressure and sinus infections. Some people may use it tohelp prevent certain kinds of loose stools. This may be loose stools caused by infections or antibiotics. Probiotics are used to promote general bowel health and well-being. What are the precautions when taking this product? ?? Always check with your doctor before you use a natural product. Some products may not mix well with other drugs or natural products. ?? This product may not work as well if you are taking drugs to treat an infection. ?? Take extra care if you are at a high risk for infection. This includes people who have had a transplant, are on chemo, have an autoimmune disease, or in infants born prematurely. ?? Do not use this product in infants who are very sick. ?? Do not use this product if you have pancreas problems. ?? Take extra care and check with your doctor if you have: ? Cancer ? Pancreatitis ? Recently had surgery. What should I watch for? ?? Stomach cramps ?? Bloating ?? Gas ?? Problems with taste When do I need to call the doctor? ?? Signs of a very bad reaction. These include wheezing; chest tightness; fever; itching; bad cough; blue skin color; seizures; or swelling of face, lips, tongue, or throat. Go to the ER right away. ?? Signs of infection. These include a fever of 100.4??F (38??C) or higher, chills, very bad sore throat, ear or sinus pain, cough, more sputum or change in color of sputum, pain with passing urine, mouth sores, wound that will not heal, or pain. ?? Very bad belly pain ?? Very bad loose stools Where can I learn more? National Center for Complement[employer] Integrative Health https://nccih.nih.gov/health/probiotics/introduction.htm Last Reviewed Date 2017-07-15 Consumer Information Use and Disclaimer This information is not specific medical advice and does not replace information you receive from your healthcare provider. Only your healthcare provider has the knowledge and training to provide advice that is right for you. You should not rely on this information in deciding whether or not to use, or accept your healthcare provider???s advice regarding use of, any natural products or similar treatments, therapies, or life-style choices. This information does not endorse any natural products or similar treatments, therapies, or life-style choices as safe, effective, or approved for treating any patient or health condition. This is only a brief summary of general information. It does NOT include all information about natural products, possible uses, directions, warnings, precautions, interactions, adverse effects, or risks that may apply to you. You must talk with your healthcare provider for complete information about your health and treatment options. Copyright Copyright ?? 2018 [employer]. and its affiliates and/or licensors. All rights reserved. IVIST POLITICAL HISTORY documented in this encounter Progress Notes * CAROLYN Martin - 05/08/2018 1:40 PM CST Office Progress Note Reason for Visit: Vaginal Problem (x 2 months) History of Present Illness: Stephanie presents to the office for vaginal odor for the last 2 months. She denies any abnormal vaginal discharge. She reports that she has not been sexually active in the last 8 months. She reports that when she was sexually active she did not always used condoms. She does have the Nexplanon in for control. She states that she has had frequent yeast infections in the past that have required treatment. She is also needing a refill of her sertraline that she takes for anxiety. She reports that it is working well and she has no side effects from this medication. She denies SI or HI presently ROS: Review of Systems Constitutional: Negative for chills, fever and weight loss. HENT: Negative for sore throat. Eyes: Negative for blurred vision. Respiratory: Negative for shortness of breath. Cardiovascular: Negative for chest pain and leg swelling. Gastrointestinal: Negative for constipation, diarrhea, heartburn, nausea and vomiting. Genitourinary: Negative for dysuria, flank pain, frequency, hematuria and urgency. Vaginal odor Musculoskeletal: Negative for falls, joint pain and myalgias. Neurological: Negative for weakness and headaches. Psychiatric/Behavioral: Negative for depression, [...] Use ??? Smoking status: Not on file Substance and Sexual Activity ??? Alcohol use: Not on file ??? Drug use: Not on file ??? Sexual activity: Not on file Lifestyle ??? Physical activity: Days per week: Not on file Minutes per session: Not on file ??? Stress: Not on file Relationships ??? Social connections: Talks on phone: Not on file Gets together: Not on file Attends tenriism service: Not on file Active member of [...] time. She appears well- developed and well-nourished. No distress. HENT: Head: Normocephalic and atraumatic. Right Ear: External ear normal. Left Ear: External ear normal. Nose: Nose normal. Mouth/Throat: Oropharynx is clear and moist. Eyes: Conjunctivae and EOM are normal. Pupils are equal, round, and reactive to light. Neck: Trachea normal, normal range of motion, full passive range of motion without pain and phonation normal. Neck supple. No tracheal deviation present. No thyroid mass and no thyromegaly present. Cardiovascular: Normal rate, regular rhythm, normal heart sounds and intact distal pulses. Exam reveals no gallop and no friction rub. No murmur heard. Pulmonary/Chest: Effort normal and breath sounds normal. No accessory muscle usage. No respiratory distress. She has no decreased breath sounds. She has no wheezes. Abdominal: Soft. Normal appearance and bowel sounds are normal. She exhibits no distension and no mass. There is no hepatosplenomegaly. There is no tenderness. There is no rebound, no guarding and noCVA tenderness. Hernia confirmed negative in the right inguinal area and confirmed negative in the left inguinal area. Genitourinary: Rectum normal and uterus normal. There is no tenderness, lesion or injury on the right labia. There is no tenderness, lesion or injury on the left labia. Uterus is not enlarged and nottender. Cervix exhibits discharge (thin, white discharge noted at cervical os). Cervix exhibits no motion tenderness and no friability. Right adnexum displays no mass, no tenderness and no fullness. Left adnexum displays no mass, no tenderness and no fullness. There is bleeding (small amount of old, dark blood noted in vagina) in the vagina. No erythema or tenderness in the vagina. No foreign body in the vagina. No vaginal discharge found. Musculoskeletal: Normal range of motion. She exhibits no tenderness or deformity. Lymphadenopathy: She has no cervical adenopathy. Right: No inguinal adenopathy present. Left: No inguinal adenopathy present. Neurological: She is alert and oriented to person, place, and time. She has normal strength and normal reflexes. No cranial nerve deficit or sensory deficit. Coordination normal. Skin: Skin is warm, dry and intact. No rash noted. She is not diaphoretic. No erythema. Psychiatric: She has a normal mood and affect. Her speech is normal and behavior is normal. Judgment and thought content normal. Cognition and memory are normal. Nursing note and vitals reviewed. Filed Vitals: 05/08/18 1402 BP: 130/69 Pulse: 82 Resp: 16 SpO2: 99% Weight: 62.1 kg (137 lb) Height: 5' 4 (1.626 m) Diagnoses/Impression: 1. Vaginal odor URINALYSIS AUTO DIP CULTURE CHLAMYDIA TRACHOMATIS SMEAR, STAIN, WET PREP MICHAEL PREP CANCELED: VAGINITIS SCREEN CANCELED: CT/GC AND T VAGINALIS RNA, TMA, SURE SWAB 2. High risk heterosexual behavior CULTURE CHLAMYDIA TRACHOMATIS SMEAR, STAIN, WET PREP MICHAEL PREP CANCELED: VAGINITIS SCREEN CANCELED: CT/GC AND T VAGINALIS RNA, TMA, SURE SWAB 3. Anxiety sertraline 50 MG tablet Recommendations and Plan: 1. Vaginal odor - URINALYSIS AUTO DIP - CULTURE CHLAMYDIA TRACHOMATIS; Future - SMEAR, STAIN, WET PREP - MICHAEL PREP 2. High risk heterosexual behavior - CULTURE CHLAMYDIA TRACHOMATIS; Future - SMEAR, STAIN, WET PREP - MICHAEL PREP 3. Anxiety - sertraline 50 MG tablet; Take 1 tablet (50 mg total) by mouth daily. Dispense: 30 tablet; Refill:6 Orders Placed This Encounter ??? URINALYSIS AUTO DIP ??? sertraline 50 MG tablet ??? CULTURE CHLAMYDIA TRACHOMATIS ??? SMEAR, STAIN, WET PREP ??? MICHAEL PREP - Continue your current medications as directed and prescribed - F/U with your counselor as we discussed - call for any questions or concerns - Seek medical attention immediately for any thoughts or suicide or homicide - f/u in 3 months or sooner if needed PCP: CAROLYN VALENZUELA 05/14/2018 IVIST POLITICAL HISTORY documented in this encounter Plan of Treatment Not on file documented as of this encounter Procedures Procedure Name Priority Date/Time Associated Diagnosis Comments MICHAEL PREP Routine 05/08/2018 3:21 PM ARCHIVIST POLITICAL HISTORY Vaginal odor High risk heterosexual behavior SMEAR, STAIN, WET PREP Today 05/08/2018 3:21 PM ARCHIVIST POLITICAL HISTORY Vaginal odor High risk heterosexual behavior URINALYSIS AUTO DIP Routine 05/08/2018 Vaginal odor documented in this encounter Results * MICHAEL PREP (05/08/2018 3:21 PM ARCHIVIST POLITICAL HISTORY) SPECIMEN SOURCE vaginal [facility] WBC'S (WET PREP) none [facility] BACTERIA (U) NONE SEEN NONE SEEN [facility] FUNGAL ELEMENTS NONE [facility] Vaginal swab (specimen) VAGINAL STRUCTURE / Unknown 05/08/2018 3:21 PM ARCHIVIST POLITICAL HISTORY Cuca LEON MICROBIOLOGY - GENERAL ORDERAB LES Final Result [facility] [address] [place] [address], * SMEAR, STAIN, WET PREP (05/08/2018 3:21 PM ARCHIVIST POLITICAL HISTORY) SPECIMEN SOURCE vaginal [facility] WBC'S (WET PREP) none [facility] RBC (WET PREP) occasional [facility] EPITHELIAL CELLS (WET PREP) present [facility] BACTERIA (U) NONE SEEN NONE SEEN [facility] CLUE CELLS none seen [facility] TRICHOMONAS negative Negative [facility] FUNGAL ELEMENTS none seen [facility] Vaginal swab (specimen) VAGINAL STRUCTURE / Unknown 05/08/2018 3:21 PM ARCHIVIST POLITICAL HISTORY Cuca LEON MICROBIOLOGY - GENERAL ORDERAB LES Final Result Performing Organization Address City/[facility]/[place] [address], * URINALYSIS AUTO DIP (05/08/2018) COLOR (U) YELLOW [facility] TRANSPARENCY CLEAR [facility] GLUCOSE (U) NEGATIVE NEGATIVE MG/DL [facility] BILIRUBIN (U) NEGATIVE NEGATIVE [facility] KETONES MG/DL (U) NEGATIVE NEGATIVE MG/DL [facility] SPECIFIC GRAVITY (U) 1.025 1.001 - 1.035 [facility] BLOOD (U) TRACE (Non Hemolyzed, Intact) NEGATIVE [facility] U PH 7.0 5.0 - 9.0 [facility] PROTEIN (U) NEGATIVE mg/dL [facility] UROBILINOGEN Normal 0.2 - 1.0 EU/dL = mg/dL [facility] NITRITES NEGATIVE NEGATIVE MG/DL [facility] LEUKOCYTES (U) NEGATIVE NEGATIVE [facility] URINE SPECIMEN OBTAINED BY CLEAN CATCH PROCEDURE / Unknown 05/08/2018 us Cuca LEON URINE ORDERABLES Final Result Performing Organization Address City/[facility]/[place] [address], documented in this encounter Visit Diagnoses Diagnosis Vaginal odor- Primary Unspecified symptom associated with female genital organs High risk heterosexual behavior Problems related to high-risk sexual behavior Anxiety Anxiety state, unspecified documented in this encounter Care Teams Oil Pipe Inspector Helper Relationship Specialty Start Date End Date Cuca Dutton FNP [address] [place] [id number] PCP - General Nurse Practitioner Family 05/04/18 documented as of this encounter
--- OUTSIDE RECORDS SUMMARY | 2024-03-25 18:37 | XMS_ITS | Encounter Summary ---
Author Organization [facility] Address [address] [place] [address]. [place], [place] [id number] [place] [address] Care Team Providers Care Shop Steward Name Role Phone Cuca Dutton CAROLYN Primary Care Provider [phone] Reason for Visit * Reason Comments Arm Pain left arm pain Encounter Details Date Type Department Care Team (Late st Contact Info) Description 06/29/2018 1:00 PM CDT Office Visit [facility] Group Family & Internal Medicine [facility] [address] [place] [address] Miguel Walsh DO [address] [place], [place] [id number] Arm Pain (left arm pain ) Social History Tobacco Use Types Packs/Day [...] Sign Reading Time Taken Comments Blood Pressure 107/71 06/29/2018 1:09 PM CDT Pulse 70 06/29/2018 1:09 PM CDT Temperature 36.9 ??C (98.4 ??F) 06/29/2018 1:09 PM CD T Respiratory Rate 16 06/29/2018 1:09 PM CDT Oxygen Saturation 98% 06/29/2018 1:09 PM CDT Inhaled Oxygen Concentration - - Weight 62.2 kg (137 lb 1 oz) 06/29/2018 1:09 PM CDT Height 162.6 cm (5' 4 ) 06/29/2018 1:09 PM CDT Body Mass Index 23.53 06/29/2018 1:09 PM CDT Body Mass Index Percentile 72.38% 06/29/2018 1:0 9 PM CDT Growth Chart: [facility] (Girls, 2- 20 Years) documented in this encounter Progress Notes * Miguel Walsh, DO - 06/29/2018 1:00 PM CDT Images from the original note were not included. GENERAL OFFICE VISIT Encounter Date: 06/29/2018 Chief Complaint: 18-year-old female presents for Arm Pain (left arm pain ) HPI: Pt presents with middle elbow pain. Had nexplanon removal and insertion three weeks ago. Device is still present and palpable in upper arm on left. Notes pain with hyperextension at left elbow. Has some mild pain with palpation when it is extended. No acute injury. Notes it is a sharp pain. No noted numbness/tingling. No other systemic symptoms. Review of Systems Constitutional: Negative for fever. Respiratory: Negative for shortness of breath. Cardiovascular: Negative for chest pain. Musculoskeletal: See HPI Skin: Negative for rash. Patient Active Problem List Diagnosis ??? Anxiety ??? High risk heterosexual behavior ??? Vaginal odor No past medical history on file. Past Surgical History: Procedure Laterality Date ??? MYRINGOTOMY Family History Problem Relation Name Age of Onset ??? Diabetes Paternal Grandfather Social History Socioeconomic History ??? Marital status: [...] Social History Narrative ??? Not on file Immunization History Administered Date(s) Administered ??? DTaP (Daptacel) 2000, 2000, 2000, 07/14/2001, 12/04/2005 ? ? Flucelvax Adult >Age4 (Multi-Dose Vial) 02/19/2018 ? ? Fluzone Adult - >Age 3 (Prefilled Syringe) 02/05/2018 ??? HPV4 (Gardasil) 10/05/2011, 11/12/2011, 04/08/2012 ??? Hepatitis A (Havrix [address]) 12/21/2004, 09/30/2005 ??? Hepatitis B Pediatric 2000, 2000, 01/23/2001 ??? Hib (Generic) 2000, 2000, 01/23/2001 ??? MCV40 (Menveo) 10/05/2011 ??? MMR 07/14/2001, 10/01/2005 ??? Menactra 11/20/2016, 10/19/2017 ??? Pneumococcal (Prevnar 13) 2000, 2000, 2000, 04/10/2001 ??? Polio Ipv (Generic) 2000, 2000, 11/10/2001, 10/01/2005 ??? Tdap (Generic) 10/05/2011 ??? Tuberculin 10/19/2017 ??? Varicella Vaccine 04/10/2001, 11/10/2007 Current Outpatient Medications Medication Sig Dispense Refill ??? AMNESTEEM 40 MG Cap TK 2 CS PO D WITH A MEAL 0 ??? fluoxetine 20 MG capsule Take 1 capsule (20 mg total) by mouth daily. 30 capsule 2 ??? naproxen 500 MG tablet Take 1 tablet (500 mg total) by mouth 2 (two) times daily with meals. 30tablet 0 No current facility-administered medications for this visit. Current Outpatient Medications on File Prior to Visit Medication Sig ??? AMNESTEEM 40 MG Cap TK 2 CS PO D WITH A MEAL ??? fluoxetine 20 MG capsule Take 1 capsule (20 mg total) by mouth daily. No current facility-administered medications on file prior to visit. Allergies Allergen Reactions ??? Sulfamethoxazole-Trimethoprim Unknown Objective: Filed Vitals: 06/29/18 1309 BP: 107/71 Pulse: 70 Resp: 16 Temp: 98.4 ??F (36.9 ??C) TempSrc: Oral SpO2: 98% Weight: 62.2 kg (137 lb 1 oz) Height: 5' 4 (1.626 m) Physical Exam Constitutional: She is well-developed, well-nourished, and in no distress. HENT: Head: Normocephalic and atraumatic. Right Ear: External ear normal. Left Ear: External ear normal. Eyes: Conjunctivae are normal. Cardiovascular: Normal rate, regular rhythm and normal heart sounds. Exam reveals no gallop and no friction rub. No murmur heard. Pulmonary/Chest: Effort normal and breath sounds normal. No respiratory distress. She has no wheezes. She has no rales. Abdominal: Soft. Bowel sounds are normal. There is no tenderness. Musculoskeletal: Pain with hyperextension at elbow, mild pain against resisted extension. 5/5 strength b/l. Implant is palpable in upper left arm. No other palpable mass in area of pain. Neurological: Gait normal. Skin: Skin is warm and dry. No rash noted. Nursing note and vitals reviewed. Assessment & Plan: Stephanie was seen today for arm pain. Diagnoses and all orders for this visit: Medial epicondylitis of left elbow - naproxen 500 MG tablet; Take 1 tablet (500 mg total) by mouth 2 (two) times daily with meals. Discussion/Summary: Musculoskeletal pain vs. Post-op pain vs. referred pain, will treat with naproxen for 2 weeks. CallGYN if not improving for consideration of complication of implant insertion. No evidence of infection or migration. Pt v/u. Miguel Walsh DO documented in this encounter Plan of Treatment Not on file documented as of this encounter Visit Diagnoses Diagnosis Medial epicondylitis of left elbow- Primary Medial epicondylitis of elbow documented in this encounter Care Teams Shop Steward Relationship Specialty Start Date End Date Cuca Dutton FNP [address] [place] [id number] PCP - General Nurse Practitioner Family 05/04/18 documented as of this encounter
--- OUTSIDE RECORDS SUMMARY | 2024-03-25 18:37 | XMS_ITS | Encounter Summary ---
Author Organization [facility] Address [address] [place] [address]. [place], [place] [id number] [place] [address] Care Team Providers Care Processing Specialist Name Role Phone Cuca Dutton Primary Care Provider [phone] Reason for Visit * Reason Onset Date Comments Medication Request 11/17/2018 Encounter Details Date Type Department Care Team (Late st Contact Info) Description 11/17/2018 Telephone [facility] Family & Internal Medicine [facility] [address] [place] [address] Cuca Dutton FNP [address] [place] [address] Medication Request Social History Tobacco [...] Notes * Kristan Hull MA - 11/20/2018 1:06 PM CDT Spoke w/ pt and informed of the following. Pt said that there was a delay w/ her pharmacy and she couldn't get it for a while but it is ok because she doesn't think she needs this anymore now that her lesions have gone away. * Isela Matos MA - 11/17/2018 4:19 PM CDT Tried to call patient, no voicemial box set up 11/17/18 Per Cuca Mix with Desitin Cream, this will help minimize burning sensation caused by lidocaine, and apply up to 3 times daily. rx sent to pharmacy * CAROLYN Martin - 11/17/2018 3:40 PM CDT We can order her some topical lidocaine cream. * Lydia Gonzalez RRT - 11/17/2018 8:08 AM CDT Pt states her lesions on her labia are so painful that she has been holding her urine because of pain and would like pain meds or anything you can send out for her to in [place]. Allergies: Bactrim documented in this encounter Plan of Treatment Not on file documented as of this encounter Visit Diagnoses Diagnosis [place], syphilitic- Primary Early syphilis, genital (primary) documented in this encounter Care Teams Processing Specialist Relationship Specialty Start Date End Date Cuca Dutton FNP [address] [place] [address] PCP - General Nurse Practitioner Family 05/04/18 documented as of this encounter
--- OUTSIDE RECORDS SUMMARY | 2024-03-25 18:37 | XMS_ITS | Encounter Summary ---
Author Organization [facility] Address [address] [place] [address]. [place], [place] [id number] [place] [address] Care Team Providers Care Staff Development Manager Name Role Phone Cuca Dutton Primary Care Provider [phone] Encounter Details Date Type Department Care Team [...] on filedocumented in this encounter Care Teams Staff Development Manager Relationship Specialty Start Date End Date Cuca Dutton FNP [address] [place] [address] PCP - General Nurse Practitioner Family 05/04/18 documented as of this encounter
--- OUTSIDE RECORDS SUMMARY | 2024-03-25 18:37 | XMS_ITS | Encounter Summary ---
Author Organization [facility] Address [address] [place] [address]. [place], [place] [id number] [place] [address] Care Team Providers Care User Experience Architect Name Role Phone Cuca Dutton Primary Care Provider [phone] Reason for Visit * Reason Onset Date Comments Vaginal Problem 01/15/2019 Encounter Details Date Type Department Care Team (Late st Contact Info) Description 01/15/2019 Telephone [facility] Family & Internal Medicine [place] [id number] [place] [address] Cuca Dutton FNP [address] [place] [address] Vaginal Problem Social History Tobacco [...] Progress Notes * Emily Eason MA - 01/15/2019 3:51 PM CDT Patient notified and v/u-sjs * Corry Degroot RN - 01/15/2019 2:01 PM CDT Unable to leave message. rx sent. 01/15/19 * CAROLYN Martin - 01/15/2019 1:21 PM CDT Fluconazole 150 mg take one now, may repeat in 72 hours if she is still having symptoms. Dsp 2 * Emily Eason MA - 01/15/2019 8:07 AM CDT Patient was on amoxil for dental procedure and now has yeast infection. Allergic to sulfa [facility] [phone] documented in this encounter Plan of Treatment Not on file documented as of this encounter Visit Diagnoses Diagnosis Vaginal odor- Primary Unspecified symptom associated with female genital organs Yeast infection of the vagina Candidiasis of vulva and vagina documented in this encounter Care Teams User Experience Architect Relationship Specialty Start Date End Date Cuca Dutton FNP [address] [place] [address] PCP - General Nurse Practitioner Family 05/04/18 documented as of this encounter
--- OUTSIDE RECORDS SUMMARY | 2024-03-25 18:37 | XMS_ITS | Encounter Summary ---
Author Organization [facility] Address [facility] [facility]. [place], [place] [address] [place] [address] Care Team Providers Care Radiation Oncology Therapist Name Role Phone Cuca Dutton Primary Care Provider [phone] Reason for Visit * Reason Onset Date Comments Results 05/12/2018 Encounter Details Date Type Department Care Team (Late st Contact Info) Description 05/12/2018 Telephone [facility] Family & Internal Medicine [facility] [address] [place] [address] Cuca Dutton FNP [address] [place], [place] [id number] Results Social History Tobacco Use Types Packs/Day Years Used Date Smoking Tobacco: Never Assessed Comments No Sex and Gender Information Value Date Recorded Sex Assigned at Not on file Legal Sex Female 8:44 PM CDT Gender Identity Not on file Sexual Orientation Not on file documented as of this encounter Progress Notes * Norma Araujo MA - 05/15/2018 1:46 PM CST Patient informed tn [facility]RA[facility]ER * Norma Araujo MA - 05/12/2018 3:28 PM CST Lm 05/12/18 tn [facility] HAND [facility]RAIDER * Norma Araujo MA - 05/12/2018 3:28 PM CST ----- Message from CAROLYN Martin sent at 05/12/2018 1:11 PM B[facility] HAND BRAIDER ----- Tests were negative for trichamonis, gonorrhea and chlamydia [facility] documented in this encounter Plan of Treatment Not on file documented as of this encounter Visit Diagnoses Not on filedocumented in this encounter Care Teams Radiation Oncology Therapist Relationship Specialty Start Date End Date Cuca Dutton FNP [address] [place] [address] PCP - General Nurse Practitioner Family 05/04/18 documented as of this encounter
--- OUTSIDE RECORDS SUMMARY | 2024-03-25 18:37 | XMS_ITS | Encounter Summary ---
Author Organization [facility] Address [address] [place] [address]. [place], [place] [address] [place] [address] Care Team Providers Care Electronic Security Technician Name Role Phone Cuca Dutton Primary Care Provider [phone] Reason for Visit * Reason Comments Follow Up sti testing Encounter Details Date Type Department Care Team (Late st Contact Info) Description 11/08/2019 9:20 AM CDT Office Visit [facility] Family [facility] Internal Medicine [id number] [place] [address] Cuca Dutton FNP [address] [place], [place] [id number] Follow Up (sti testing ) Social History Tobacco Use Types Packs/Day [...] Sign Reading Time Taken Comments Blood Pressure 99/66 11/08/2019 9:31 AM CDT Pulse 87 11/08/2019 9:31 AM CDT Temperature 36.8 ??C (98.3 ??F) 11/08/2019 9:31 AM CD T Respiratory Rate 20 11/08/2019 9:31 AM CDT Oxygen Saturation 97% 11/08/2019 9:31 AM CDT Inhaled Oxygen Concentration - - Weight 63.4 kg (139 lb 12.8 oz) 11/08/2019 9:31 AM CDT Height 162.6 cm (5' 4 ) 11/08/2019 9:31 AM CDT Body Mass Index 24 11/08/2019 9:31 AM CDT documented in this encounter Patient Instructions * Patient Instructions* CAROLYN Martin - 11/08/2019 9:20 AM CDT Images from the original note were not included. Patient Education Patient Education STD Prevention About this topic Sexually-transmitted diseases or STDs are infections you catch during sexual contact. This includesvaginal, oral, and anal sex. You may also get it by coming in contact with skin, genitals, mouth, rectum, or body fluids of an infected person. A person with an STD may not have any signs or know they have it. STDs can be very serious and have long-term health effects. STDs can cause cancer, blindness, or not being able to have children. Bacteria or viruses can cause STDs. Bacterial STDs are treated with antibiotics. Only the signs of viral STDs are treated. Common STDs include: ?? Chlamydia ?? Gonorrhea ?? Syphilis ?? Human immunodeficiency virus (HIV) ?? Herpes simplex ?? Human papillomavirus (HPV) ?? Hepatitis B and C STDs may cause signs like: ?? Pain when passing urine ?? Sores or genital warts ?? Unusual discharge from penis or vagina ?? Itching on your inner thighs, anus, or genitals ?? Abnormal menstrual bleeding ?? Pain or bleeding during sex ?? Swelling of testicles ?? Fever ?? Muscle or joint pain These signs may come and go. It is important to see your doctor even if you think the signs are gone. General ?? Learn about your health, your body, sex, love, and relationships. These are all important parts of sexual health. ?? Learn about STDs. Find reliable information about STDs. ?? Know the right names for both male and female body parts. ?? Find information about the kinds of infections you could get. ?? Know how STDs spread as well as the signs and treatment. What will the results be? ?? You may be able to protect yourself from getting STDs. ?? You may be able to prevent long-term effects on your health. ?? If you are , you may be able to prevent giving your unborn baby a STD. Will there be any other care needed? ?? Ask your doctor if there are shots or pills you can take to prevent a STD. ?? Know your STD status. Get tested and have your partner tested. What can be done to prevent this health problem? ?? The only sure way to keep from getting or passing on a sexually-transmitted infection is to not have sexual contact with anyone. ?? Even if you do not have any signs of illness, you may spread an STD. ?? If you have any type of sexual contact, use latex condoms each time to reduce the spread of infection. Use a condom with each partner every time, from the start of sex to the end. ?? Avoid contact with any sex partner known to have an infection or who has signs of an infection like genital sores or warts. ?? Avoid multiple sex partners. A long-term monogamous relationship with a partner who has tested negative and is known to have no infection is the safest partner. ?? If you are , get tested and get prompt treatment for an STD. This will help avoid passing it to your baby. ?? Avoid using drugs or too much alcohol. Either of these can lead to risky behavior like unprotected sex. ?? Talk to your partner about STDs before you have sex. Talk about having safe sex and if your relationship is monogamous. ?? Wash your hands and genitals with soap and water after sex. ?? See your doctor for regular exams and check-ups for STDs. ?? Talk to your doctor about available vaccines for prevention of certain STDs. Where can I learn more? [employer] http://familydoctor.org/familydoctor/en/diseases-conditions/sexually-transmitted -infections/prevention.printerview.all.html [employer] https://www.acog.org/Patients/FAQs/Rqz-hf-Kskxcxp-Pbligdie-Bfdaeugccwa-Hmcwtfkto s-STIs?IsMobileSet=false Centers for Disease Control http://www.cdc.gov/std/prevention/default.htm Last Reviewed Date 2018-12-25 Consumer Information Use and Disclaimer This information [...] is right for you. Copyright Copyright ?? 2020 [employer] and its affiliates and/or licensors. All rights reserved. documented in this encounter Progress Notes * CAROLYN Martin - 11/08/2019 9:20 AM CDT Office Progress Note Reason for Visit: Follow Up (sti testing ) History of Present Illness: Stephanie presents to the office for the need for STI testing. She reports that she just got out of a relationship that she found out her significant other was cheating on her. She denies any vaginal discharge or skin lesions but does report some vaginal irritation. She would like testing for any and all STIs. ROS: Review of Systems Constitutional: Negative for [...] frequency, hematuria and urgency. Musculoskeletal: Negative for falls, joint pain and myalgias. Neurological: Negative for dizziness, tingling, tremors, sensory change, speech change, focal weakness, seizures, loss of consciousness, weakness and headaches. Psychiatric/Behavioral: Negative for depression, hallucinations, memory loss, substance abuse and suicidal ideas. The patient is not nervous/anxious and does not have insomnia. Medications: Current Outpatient Medications on File Prior to Visit Medication Sig ??? levonorgestrel (MIRENA, 52 MG,) 20 MCG/24HR IUD 1 Intra Uterine Device by Intrauterine route once. No current facility-administered medications on file prior [...] activity: Never control/protection: Inserts Lifestyle ??? Physical activity: Days per week: Not on file Minutes per session: Not on file ??? Stress: Not on file Relationships ??? Social connections: Talks on phone: Not on file Gets together: Not on file Attends mu-ism service: Not on file Active member of [...] moist and mucous membranes are normal. Eyes: Pupils are equal, round, and reactive to light. Conjunctivae, EOM and lids are normal. Neck: [...] rhonchi. She has no rales. Abdominal: Soft. Bowel sounds are normal. She exhibits no distension, no abdominal bruit, no pulsatile midline mass and no mass. There is no tenderness. There is no rebound and no guarding. Hernia confirmed negative in the right inguinal area and confirmed negative in the left inguinal area. Genitourinary: Rectum normal and vagina normal. There is no rash, tenderness or lesion on the rightlabia. There is no rash, tenderness or lesion on the left labia. Uterus is not enlarged and not tender. Cervix exhibits no motion tenderness, no discharge and no friability. Right adnexum displays nomass, no tenderness and no fullness. Left adnexum displays no mass, no tenderness and no fullness. No erythema, tenderness or bleeding in the vagina. No foreign body in the vagina. No signs of injuryaround the vagina. No vaginal discharge found. Musculoskeletal: Normal range of motion. She exhibits no tenderness or deformity. Lymphadenopathy: She has no cervical adenopathy. Right: No inguinal adenopathy present. Left: No inguinal adenopathy present. Neurological: She is alert and oriented to person, place, and time. She has normal reflexes. No cranial nerve deficit. Coordination and gait normal. Skin: Skin is warm, dry and intact. No rash noted. No erythema. Psychiatric: She has a normal mood and affect. Her speech is normal and behavior is normal. Judgment and thought content normal. Nursing note and vitals reviewed. Filed Vitals: 11/08/19 0931 BP: 99/66 Pulse: 87 Resp: 20 Temp: 98.3 ??F (36.8 ??C) TempSrc: Tympanic SpO2: 97% Weight: 63.4 kg (139 lb 12.8 oz) Height: 5' 4 (1.626 m) Diagnoses/Impression: 1. Exposure to sexually transmitted disease (STD) VAGINITIS SCREEN HEPATITIS PANEL,ACUTE HIV AG/AB, 4TH GEN W/RFX RPR (MONITOR) W/RFX TO TITER HSV 1&2 IGM WI RFX TO TITER CHLAMYDIA AND GC RNA TMA VENIPUNC ARM DRAW Pelvic exam: normal vagina and vulva, vaginal discharge is bloody discharge, normal cervix without lesions IUD strings visualized, polyps or tenderness, uterus retroverted, uterus normal size, shape,consistency, no mass or tenderness noted. Recommendations and Plan: 1. Exposure to sexually transmitted disease (STD) - VAGINITIS SCREEN; Future - VAGINITIS SCREEN - HEPATITIS PANEL,ACUTE; Future - HIV AG/AB, 4TH GEN W/RFX; Future - RPR (MONITOR) W/RFX TO TITER; Future - HSV 1&2 IGM WI RFX TO TITER; Future - CHLAMYDIA AND GC RNA TMA; Future - HEPATITIS PANEL,ACUTE - HIV AG/AB, 4TH GEN W/RFX - RPR (MONITOR) W/RFX TO TITER - HSV 1&2 IGM WI RFX TO TITER - CHLAMYDIA AND GC RNA TMA - VENIPUNC ARM DRAW -medications as directed and prescribed - advised to abstain from sexual intercourse until testing comes back -pelvic exam done today -Labs for STIs ordered today. - advised to follow up routinely or sooner if needed. Orders Placed This Encounter ??? VENIPUNC ARM DRAW ??? HEPATITIS PANEL,ACUTE ??? HIV AG/AB, 4TH GEN W/RFX ([facility] ONLY) ??? RPR (MONITOR) W/RFX TO TITER ([facility] ONLY) ? ? HSV 1&2 IGM WI RFX TO TITER ??? levonorgestrel (MIRENA, 52 MG,) 20 MCG/24HR IUD ??? VAGINITIS SCREEN ([facility] ONLY) ??? CHLAMYDIA AND GC RNA TMA Cannot display discharge medications since this is not an admission. PCP: CAROLYN VALENZUELA 11/14/2019 * CAROLYN Martin - 11/08/2019 9:20 AM CDT We are still waiting on vaginitis panel but all other STI testing was normal (negative). It has been over a week and I dont' want her to wait any longer for these results. Thank you * CAROLYN Martin - 11/08/2019 9:20 AM CDT Her vaginitis panel just showed some BV. Lets send out some metrogel to use vaginally at night for the next 7 nights. STD testing was negative. documented in this encounter Plan of Treatment Not on file documented as of this encounter Procedures Procedure Name Priority Date/Time Associated Diagnosis Comments VENIPUNC ARM DRAW Routine 11/08/2019 10: 20 AM CDT Exposure to sexually transmitted disease (STD) HIV AG/AB, 4TH GEN W/RFX Routine 11/08/2019 10:20 AM CDT Exposure to sexually transmitted disease (STD) HSV 1&2 IGM WI RFX TO TITER Routine 11/08/2019 10:20 AM CDT Exposure to sexually transmitted disease (STD) CHLAMYDIA AND GC RNA TMA Routine 11/08/2019 10:20 AM CDT Exposure to sexually transmitted disease (STD) HEPATITIS PANEL,ACUTE Routine 11/08/2019 10:20 AM CDT Exposure to sexually transmitted disease (STD) RPR (MONITOR/CONGENITAL <6M) WITH REFLEX TO TITER Routine 11/08/2019 10:17 AM CDT Exposure to sexually transmitted disease (STD) VAGINITIS SCREEN Routine 11/08/2019 10:1 5 AM CDT Exposure to sexually transmitted disease (STD) documented in this encounter Results * CHLAMYDIA AND GC RNA TMA (11/08/2019 10:20 AM CDT) Pathologist [facility] CHLAMYDIA TRACHOMATIS RNA TMA NOT DETECTED NOT DETECTED [facility] N.GONORRHOEAE RNA TMA (QST) NOT DETECTED NOT DETECTED [facility] COMMENT: [facility] Comment: The analytical performance characteristics of this assay, when used to test SurePath(TM) specimens have been determined by [facility]. The modifications have not been cleared or approved by the FDA. This assay has been validated pursuant to the CLIA regulations and is used for clinical purposes. For additional information, please refer to https://education.EastMeetEast/faq/WPW601 (This link is being provided for information/ educational purposes only.) URINE SPECIMEN / Unknown 11/08/2019 10:20 AM CDT 11/09/2019 7:20 AM CDT Narrative Resulting Agency Comment Performing Organization Information: ?Site ID: [place] ?Name: [facility] ?Address: [address] [place] [address] ?Director: Billy Ang D.O., MPH Cuca [facility] - GENERAL ORDERAB LES Final Result [facility] [address] [place] [address], * HSV 1&2 IGM WI RFX TO TITER (11/08/2019 10:20 AM CDT) [facility] HSV 1 IGM SCREEN NEGATIVE [facility] HSV 2 IGM SCREEN NEGATIVE [facility] Comment: REFERENCE RANGE: NEGATIVE The IFA procedure for measuring IgM antibodies to HSV 1 and HSV 2 detects both type-common and type- specific HSV antibodies. Thus, IgM reactivity to both HSV 1 and HSV 2 may represent crossreactive HSV antibodies rather than exposure to both HSV 1 and HSV 2. This test was developed and its analytical performance characteristics have been determined by [facility]. It has not been cleared or approved by FDA. This assay has been validated pursuant to the CLIA regulations and is used for clinical purposes. 11/08/2019 10:2 0 AM CDT 11/09/2019 7:20 AM CDT Narrative Resulting Agency Comment Performing Organization Information: ?Site ID: [id number] ?Name: [employer] ?Address: [address] [place] [address] ?Director: Jesus Galindo MD Cuca Dutton [facility] Final Result Performing Organization Address City/State/[facility] Co de Phone Number [facility] M[facility] ORD[facility] [address] [place] [address] * HIV AG/AB, 4TH GEN W/RFX ([facility] ONLY) (11/08/2019 10:20 AM CDT) Pathologist [facility] HIV 1/2 AB+ HIV1 P24 AG NON-REACT NOAH NON-REACT NOAH [facility] [facility] Comment: HIV-1 antigen and HIV-1/HIV-2 antibodies were [...] ?? For additional information please refer to http://Toonimo.EastMeetEast/faq/NEB068 (This link is being provided for informational/ educational purposes only.) The performance of this assay has not been clinically validated in patients less than 2 years old. 11/08/2019 10:2 0 AM CDT 11/09/2019 7:20 AM CDT Narrative Resulting Agency Comment Performing Organization Information: ?Site ID: BRIAN ?Name: [facility] ?Address: [address] [place] [address] ?Director: Billy Ang D.O., MPH Cuca Dutton [facility] Final Result [facility] [address] [place] [address], * HEPATITIS PANEL,ACUTE (11/08/2019 10:20 AM CDT) HAV IGM NON-REACT NOAH NON-REACT NOAH [facility] Comment: For additional information, please refer to http://Springr/faq/CMU837 (This link is being provided for informational/ educational purposes only.) HEPATITIS B SURFACE AG NON-REACT NOAH NON-REACT NOAH [facility] HEP B CORE IGM NON-REACT NOAH NON-REACT NOAH [facility] HEPATITIS C AB NON-REACT NOAH NON-REACT NOAH [facility] SIGNAL TO CUTOFF 0.02 <1.00 [facility] Comment: HCV antibody was non-reactive. There is no laboratory evidence of HCV infection. In most cases, no further action is required. However, if recent HCV exposure is suspected, a test for HCV RNA (test code 51785) is suggested. For additional information please refer to http://Toonimo.EastMeetEast/faq/PYP07m0 (This link is being provided for informational/ educational purposes only.) 11/08/2019 10:2 0 AM CDT 11/09/2019 7:20 AM CDT Narrative Resulting Agency Comment Performing Organization Information: ?Site ID: BRIAN ?Name: [facility] ?Address: [address] [place], [place] [address] [address] ?Director: Billy Ang D.O., MPH [facility] Final Result Performing Organization Address [facility] [[email or web address]] de Phone Number [facility] [id number] [place] [address] [place] [address], * RPR (MONITOR) W/RFX TO TITER ([facility] ONLY) (11/08/2019 10:17 AM CDT) Pathologist [facility] RPR NON-REACTI VE NON-REACTI VE [facility] 11/08/2019 10:1 7 AM CDT 11/09/2019 7:18 AM CDT Narrative Resulting Agency Comment Performing Organization Information: ?Site ID: BRIAN ?Name: [facility] Cameron ?Address: [address] [place] [phone] ?Director: Billy Ang D.O., MPH [facility] Final Result Performing Organization Address [facility] [[email or web address]] de Phone Number [facility] [address] [place] [address], * (ABNORMAL) VAGINITIS SCREEN ([facility] ONLY) (11/08/2019 10:15 AM CDT) CHLAMYDIA TRACHOMATIS RNA TMA NOT DETECTED [facility] N.GONORRHOEAE RNA TMA (QST) NOT DETECTED [facility] Comment: REFERENCE RANGE: NOT DETECTED Methodology: Frickertron Checker Mediated Amplification (TMA) to detect RNA. The analytical performance characteristics of this assay, when used to test SurePath(TM) specimens have been determined by [facility]. The modifications have not been cleared or approved by the FDA. This assay has been validated pursuant to the CLIA regulations and is used for clinical purposes. For additional information, please refer to https://education.Magn[employer] Software.CustomerXPs Software/faq/XWO839 (This link is being provided for informational/ educational purposes only.) LACTOBACILLUS SPEC 5.8 Log (cells/m L) [facility] ATOPOBIUM VAGINAE RT-PCR 7.9 Log (cells/m L) [facility] MEGASPHAERA SPECIES 7.1 Log (cells/m L) [facility] GARDNERELLA VAGINALIS 8.0 Log (cells/m L) [facility] BACTERIAL VAGINITIS EQUIVOCAL(A) [facility] Comment: REFERENCE RANGE: ??BV Category: NOT SUPPORTIVE [...] analytical performance characteristics have been determined by [facility]. It has not been cleared or approved by FDA. This assay has been validated pursuant to the CLIA regulations and is used for clinical purposes. TRICHOMONAS NOT DETECTED [facility] Comment: REFERENCE RANGE: NOT DETECTED Methodology: Frickertron Checker Mediated Amplification (TMA) For additional information, please refer to http://education.EastMeetEast/faq/Trichomonastma (This link is being provided for informational/educational purposes only.) SHARDA ALBICANS PCR (BLD) NOT DETECTED [facility] SHARDA GLABRATA PCR (BLD) NOT DETECTED [facility] SHARDA TROPICALIS PCR (BLD) NOT DETECTED [facility] SHARDA PARAPSILOSIS PCR (BLD) NOT DETECTED [facility] Comment: REFERENCE RANGE: NOT DETECTED Methodology: Real-Time PCR This test was developed and its analytical performance characteristics have been determined by [facility]. It has not been cleared or approved by FDA. This assay has been validated pursuant to the CLIA regulations and is used for clinical purposes. CERVIX UTERI STRUCTURE / Unknown 11/08/2019 10:15 AM CDT 11/09/2019 7:18 AM CDT Narrative Resulting Agency Comment Performing Organization Information: ?Site ID: [id number] ?Name: [facility] ?Address: [address] [place] [address] ?Director: Jesus Galindo MD Cuca [facility] MICROBIOLOGY - GENERAL ORDERAB LES Final Result [facility] [address] [place] [address] documented in this encounter Visit Diagnoses Diagnosis Exposure to sexually transmitted disease (STD)- Primary Contact with or exposure to other communicable diseases documented in this encounter Care Teams Electronic Security Technician Relationship Specialty Start Date End Date Cuca Dutton FNP [address] [place] [address] PCP - General Nurse Practitioner Family 05/04/18 documented as of this encounter
--- OUTSIDE RECORDS SUMMARY | 2024-03-25 18:37 | XMS_ITS | Encounter Summary ---
Author Organization [facility] Address [address] [place] [address]. [place], [place] [id number] [place] [address] Care Team Providers Care Carbon Accountant Name Role Phone Cuca Dutton Primary Care Provider [phone] Encounter Details Date Type Department Care Team (Latest Contact Info) Description 11/13/2019 Scan [facility] Scanned, Documents [...] on filedocumented in this encounter Care Teams Carbon Accountant Relationship Specialty Start Date End Date Cuca Dutton FNP [address] [place] [address] PCP - General Nurse Practitioner Family 05/04/18 documented as of this encounter
--- OUTSIDE RECORDS SUMMARY | 2024-03-25 18:37 | XMS_ITS | Encounter Summary ---
Author Organization [facility] Address Formerly [facility]. [place], [place] [address] [place] [address] Care Team Providers Care Eap Consultant Name Role Phone Unavailable Primary Care Provider Unavailabl e Encounter Details Date Type Department Care Team (Late st Contact Info) Description 10/19/2017 Abstract [facility] Family & Internal Medicine [id number] [place] [address] Cuca Dutton FNP [address] [place] [address] Social History Tobacco Use Types Packs/Day Years Used Date Smoking Tobacco: Never Assessed Comments Unknown Sex and Gender Information Value Date Recorded Sex Assigned at Not on file Legal Sex Female 8:44 PM CDT Gender Identity Not on file Sexual Orientation Not on file documented as of this encounter Last Filed Vital Signs Vital Sign Reading Time Taken Comments Blood Pressure 110/74 10/19/2017 10:21 AM CDT Pulse 84 10/19/2017 10:21 AM CDT Temperature - - Respiratory Rate - - Oxygen Saturation - - Inhaled Oxygen Concentration - - Weight 64 kg (141 lb) 10/19/2017 10:21 AM CDT Height 162.6 cm (5' 4 ) 10/19/2017 10:21 AM CDT Body Mass Index 24.2 10/19/2017 10:21 AM CDT Body Mass Index Percentile 78.80% 10/19/2017 10: 21 AM CDT Growth Chart: [facility] (Girls, 2- 20 Years) documented in this encounter Progress Notes * CAROLYN Martin - 10/19/2017 10:00 AM CDT Reason For Visit New Patient Visit Chief Complaint New patient to establish care School physical History of Present Illness HPI Free Text: Crystal is a 17 year old, , female accompanied by mother to establish care asa new patient, TB test, Menactra vaccine, and sports physical. Crystal sees Dr. Danielle, land surveyor assistant, for treatment of acne. Prescribed Aldactone 50 mg for acne treatment. Crystal has history of anxiety issues including biting nails. States her heart will beat faster, and she will sweat during the anxiety attacks. Requesting to restart the Zoloft. Denies depression. Bilateral myringotomy in 2002. Employed at [employer] in [place]. Lives with parents. Sleeps approximately 5-6 hours per night and naps during the day if not working. Smoke and carbon monoxide detectors in the home. Denies pregnancies, denies alcohol use, denies illegal drug use, denies smoking. Exercises when I can. Drinks 2 caffeinated sodas per day. Follows a regular diet. November 04 scheduled for wisdom teeth removal. Reports frequent ear infections as a child and strep throat four times as a child. Allergy to Bactrim, causes itching. Nexplanon implant inserted two years ago at Dr. Barbosa's office. First menstruation at 12 years of age. Sexually active. Denies doing self-breast exams. Maternal Grandpa history of diabetes and heart disease. Crystal wears glasses. Last eyeexam January 2017. Last dental exam 2017. Denies suicidal/homicidal thoughts. Vision screening 20/15 without corrective lenses in both, left, and right eye(s). Discussed STDs and protection. PHQ-9 Depression Questionnaire: Over the past 2 weeks, how often have you been bothered by the following problems? 1.) Little interest or pleasure in doing things? Not at all. 2.) Feeling down, depressed or hopeless? Not at all. 3.) Trouble falling asleep or sleeping too much? Half the days or more. 4.) Feeling tired or having little energy? Half the days or more. 5.) Poor appetite or overeating? Several days. 6.) Feeling bad about yourself, or that you are a failure, or have let yourself or your family down? Several days. 7.) Trouble concentrating on things, such as reading a newspaper or watching television? Not at all. 8.) Moving or speaking so slowly that other people could have noticed, or the opposite, moving or speaking faster than usual? Several days. 9.) Thoughts that you would be off or of hurting yourself in some way? Not at all. TOTAL SCORE: 7, severity of depression is mild. How difficult have these problems made it for you to do your work, take care of things at home, or get along with people? Somewhat difficult. Review of Systems See HPI for pertinent positives. Psychiatric: as noted in HPI, but not suicidal, no depression, no emotional problems, no sleep disturbances and no personality change anxiety.. ROS reported by the patient and the parent or guardian. Active Problems 1. Anxiety (300.00) (F41.9) 2. Immunization due (V05.9) (Z23) Surgical History 1. History of myringotomy with tube placement Family History Family History 1. Family history of cardiovascular disease (V17.49) (Z82.49) 2. Family history of diabetes mellitus (V18.0) (Z83.3) Allergies 1. Bactrim Recorded By: Norma Araujo; 10/19/2017 10:15:02 AM Vitals Recorded: [id number] 10:21AM Heart Rate 84 Respiration 16 Systolic 110 Diastolic 74 O2 Saturation 99 Height 5 ft 4 in Weight 141 lb BMI Calculated 24.2 BSA Calculated 1.69 BMI Percentile 78 % 2-20 Stature Percentile 47 % 2-20 Weight Percentile 77 % Physical Exam Constitutional - General appearance: No acute distress, well appearing and well nourished.. Head and Face - Head and face: Normocephalic, atraumatic. Palpation of the face and sinuses: Normal, no sinus tenderness.. Eyes - Conjunctiva and lids: No injection, edema or discharge. Pupils and irises: Equal, round, reactive to light bilaterally. Ophthalmoscopic examination: Optic discs sharp.. Ears, Nose, Mouth, and Throat - External inspection of ears and nose: Normal without deformities ordischarge. Otoscopic examination: Tympanic membranes jenkins, translucent with good bony landmarks andlight reflex. Canals patent without erythema. Hearing: Normal. Nasal mucosa, septum, and turbinates: Normal, no edema or discharge. Lips, teeth, and gums: Normal, good dentition. Oropharynx: Moist mucosa, normal tongue and tonsils without lesions.. Neck - Neck: Supple, symmetric, no masses. Thyroid: No thyromegaly.. Pulmonary - Respiratory effort: Normal respiratory rate and rhythm, no increased work of breathing.Percussion of chest: Normal. Palpation of chest: Normal. Auscultation of lungs: Clear bilaterally.. Cardiovascular - Palpation of heart: Normal PMI, no thrill. Auscultation of heart: Regular rate andrhythm, normal S1 and S2, no murmur. Carotid pulses: Normal, 2+ bilaterally. Abdominal aorta: Normal. Femoral pulses: Normal, 2+ bilaterally. Pedal pulses: Normal, 2+ bilaterally. Examination of extremities for edema and/or varicosities: Normal.. Chest - Breasts: Normal. Palpation of breasts and axillae: Normal. Chest: Normal.. Abdomen - Abdomen: Normal bowel sounds, soft, non-tender, no masses. Liver and spleen: No hepatomegaly or splenomegaly.. Lymphatic - Palpation of lymph nodes in neck: No anterior or posterior cervical lymphadenopathy. Palpation of lymph nodes in axillae: No lymphadenopathy. Palpation of lymph nodes in groin: No lymphadenopathy. Palpation of lymph nodes in other areas: No lymphadenopathy.. Musculoskeletal - Gait and station: Normal gait. Digits and nails: Normal without clubbing or cyanosis. Inspection/palpation of joints, bones, and muscles: Normal. Evaluation for scoliosis: No scoliosis on exam. Range of motion: Normal. Stability: No joint instability. Muscle strength/tone: Normal.. Skin - Skin and subcutaneous tissue: Normal. Palpation of skin and subcutaneous tissue: No rash or lesions.. Neurologic - Cranial nerves: Normal. Reflexes: Normal. Sensation: Normal. Coordination: Normal.. Psychiatric - judgment and insight: Normal. Orientation to person, place, and time: Normal. Recent and remote memory: Normal. Mood and affect: Normal.. Counseling The patient was counseled regarding instructions for management, risk factor reductions, prognosis,patient and family education, impressions, risks and benefits of treatment options and importance of compliance with treatment. total time of encounter was 30 minutes and 25 minutes was spent counseling. Assessment 1. History of myringotomy with tube placement 2. Family history of diabetes mellitus (V18.0) (Z83.3) : Family History 3. Family history of cardiovascular disease (V17.49) (Z82.49) : Family History 4. Immunization due (V05.9) (Z23) Plan Anxiety 1. Sertraline HCl - 25 MG Oral Tablet (Zoloft); TAKE 1 TABLET DAILY Rx By: Cuca Dutton; Dispense: 30 Days ; #:30 Tablet; Refill: 1; For: Anxiety; AMANDA = N; Verified Transmission to [facility]; Last Updated By: Sandra Chino; 10/19/2017 12:06:12 PM 2. Avoid alcoholic beverages.; Status:Complete; Done: 04Ony7266 11:19PM Ordered; For:Anxiety; Ordered By:Cuca Dutton; 3. Call if: New symptoms occur.; Status:Complete; Done: 38Idg1829 11:19PM Ordered; For:Anxiety; Ordered By:Cuca Dutton; 4. Avoid foods and beverages that contain caffeine.; Status:Complete; Done: 20Igr6502 11:19PM Ordered; For:Anxiety; Ordered By:Cuca Dutton; 5. Call if: The symptoms seem worse.; Status:Complete; Done: 51Cds3359 11:19PM Ordered; For:Anxiety; Ordered By:Cuca Dutton; 6. Be sure to get at least 8 hours of sleep every night.; Status:Complete; Done: 32Lds9261 11:19PM Ordered; For:Anxiety; Ordered By:Cuca Dutton; 7. Call if: You are having difficulty sleeping (insomnia).; Status:Complete; Done: 36Uco1137 11:19PM Ordered; For:Anxiety; Ordered By:Cuca Dutton; 8. Continue with our present treatment plan.; Status:Complete; Done: 64Qbh1119 11:19PM Ordered; For:Anxiety; Ordered By:Cuca Dutton; 9. Call if: Your feelings of anxiety are not getting better in 2 weeks.; Status:Complete; Done: 65Yjl9563 11:19PM Ordered; For:Anxiety; Ordered By:Cuca Dutton; 10. Decreasing the stress in your life may help your condition improve.; Status:Complete; Done: 24Oct2017 11:19PM Ordered; For:Anxiety; Ordered By:Cuca Dutton; 11. Call if: Your feelings of being frightened, nervous, anxious, and out of control are happening more often.; Status:Complete; Done: 11Kxx7367 11:19PM Ordered; For:Anxiety; Ordered By:Cuca Dutton; 12. Please bring all medicines, vitamins, and herbal supplements with you when you come to the office.; Status:Complete; Done: 50Xgd0141 11:19PM Ordered; For:Anxiety; Ordered By:Cuca Dutton; 13. Call 911 if: You are considering suicide.; Status:Complete; Done: 24Oct2017 11:19PM Ordered; For:Anxiety; Ordered By:Cuca Dutton; 14. Regular aerobic exercise can help reduce stress.; Status:Complete; Done: 24Oct2017 11:19PM Ordered; For:Anxiety; Ordered By:Cuca Dutton; 15. Call 911 if: You are thinking about harming yourself or someone else.; Status:Complete; Done: 24Oct2017 11:19PM Ordered; For:Anxiety; Ordered By:Cuca Dutton; 16. There are many things you can do to help control and end a panic attack.; Status:Complete; Done: 24Oct2017 11:19PM Ordered; For:Anxiety; Ordered By:Cuca Dutton; 17. Seek Immediate Medical Attention if: ; Status:Complete; Done: 24Oct2017 11:19PM Ordered; For:Anxiety; Ordered By:Cuca Dutton; 18. Seek Immediate Medical Attention if: You feel your heart is beating very fast or skipping beats.; Status:Complete; Done: 24Oct2017 11:19PM Ordered; For:Anxiety; Ordered By:Cuca Dutton; Immunization due 19. Menactra Intramuscular Injectable For: Immunization due; Ordered By:Cuca Dutton; Effective Date:19Oct2017; Administered by: Norma Araujo: 10/19/2017 12:05:00 PM; Last Updated By: Norma Araujo; 10/19/2017 12:06:56 PM 20. Tubersol 5 UNIT/0.1ML Intradermal Solution For: Immunization due; Ordered By:Cuca Dutton; Effective Date:19Oct2017; Administered by: Norma Araujo: 10/19/2017 12:06:00 PM; Last Updated By: Norma Araujo; 10/19/2017 12:06:56 PM Discussion/Summary Zoloft prescribed for anxiety. TB test administered for high school class requirement. Suicide Risk Assessment Completed. Positive adult depression screening. Evaluation of Psychiatric State Completed.. Tobacco use screening completed. Suicide risk assessment completed. Alcohol consumption screening completed. Assessment of substance use completed. PHQ-9 Completed (Score 7). Signatures Electronically signed by : Cuca Dutton CNP; Oct 24 2017 11:20PM ELECTRICAL LINE SPLICER (Author) documented in this encounter Plan of Treatment Not on file documented as of this encounter Visit Diagnoses Not on filedocumented in this encounter
--- OUTSIDE RECORDS SUMMARY | 2024-03-25 18:37 | XMS_ITS | Encounter Summary ---
Author Organization [facility] Address [address] [place] [address]. [place], [place] [address] [place] [address] Care Team Providers Care Judicial Clerk Name Role Phone Antonio Nicholson Primary Care Provider [phone] Reason for Visit * Reason Onset Date Comments UTI 02/28/2019 Encounter Details Date Type Department Care Team (Late st Contact Info) Description 02/28/2019 Telephone [facility] Family & Internal Medicine [facility] [address] [place] [address] Antonio Nicholson FNP [address] [place], [place] [id number] UTI Social History Tobacco Use Types Packs/Day [...] as of this encounter Progress Notes * Ondina Curiel CMA - 02/28/2019 1:22 PM CST Rx sent to pharm Pt informed and expressed understanding Y INTERVENTION SPECIALIST * CAROLYN Martin - 02/28/2019 12:29 PM CST Macrobid 100mg bid x 10d Y INTERVENTION SPECIALIST * Emily Eaosn MA - 02/28/2019 8:43 AM CST The patient has the following symptom(s): Urinary frequency and burning Symptom(s) Started: 2 days ago OTC Medications tried: nothing Call back #: [phone] Allergies: Allergies Allergen Reactions ??? Sulfamethoxazole-Trimethoprim Unknown [employer] #[id number] [place] [address] [facility] [address] [address] Last visit with ANTONIO NICHOLSON in FAMILY PRACTICE was on: 11/15/2018 in [facility] No future appointments. Current Outpatient Medications: ??? FLUCELVAX 0.5 ML Suspension Prefilled Syringe, ADM 0.5ML IM UTD, Disp: , Rfl: 0 ??? fluoxetine 20 MG capsule, Take 2 capsules (40 mg total) by mouth daily., Disp: 30 capsule, Rfl:6 ??? lidocaine 5 % cream, Mix with Desitin cream and apply up to 3 times daily, Disp: 30 g, Rfl: 1 Y INTERVENTION SPECIALIST documented in this encounter Plan of Treatment Not on file documented as of this encounter Visit Diagnoses Diagnosis UTI (urinary tract infection)- Primary Urinary tract infection, site not specified documented in this encounter Care Teams Judicial Clerk Relationship Specialty Start Date End Date Antonio Nicholson FNP [address] [place] [address] PCP - General Nurse Practitioner Family 05/04/18 documented as of this encounter
--- OUTSIDE RECORDS SUMMARY | 2024-03-25 18:37 | XMS_ITS | Encounter Summary ---
Author Organization [facility] Address [address] [place] [address]. [place], [place] [address] [place] [address] Care Team Providers Care Locomotive Inspector Name Role Phone Cuca Dutton Primary Care Provider [phone] Reason for Visit * Reason Onset Date Comments Vaginal Problem 09/01/2018 Encounter Details Date Type Department Care Team (Late st Contact Info) Description 09/01/2018 Telephone [facility] Family & Internal Medicine [facility] [address] [place] [address] Cuca Dutton FNP [address] [place], [place] [id number] Vaginal Problem Social History Tobacco Use Types [...] Progress Notes * Isela Matos MA - 09/01/2018 3:51 PM CDT Mail box is full at this time. rx sent to pharmacy. * CAROLYN Martin - 09/01/2018 3:19 PM CDT Fluconazole 150mg take one now and may repeat in 72 hours dsp 2 * Emily Eason MA - 09/01/2018 2:30 PM CDT Patient is requesting diflucan for yeast infection , ok to rx? gualberto hay Allergic to sulfa Cb#[phone] documented in this encounter Plan of Treatment Not on file documented as of this encounter Visit Diagnoses Diagnosis Yeast infection- Primary Other and unspecified mycoses documented in this encounter Care Teams Locomotive Inspector Relationship Specialty Start Date End Date Cuca Dutton FNP [address] [place] [address] PCP - General Nurse Practitioner Family 05/04/18 documented as of this encounter
--- OUTSIDE RECORDS SUMMARY | 2024-03-25 18:37 | XMS_ITS | Encounter Summary ---
Author Organization [facility] Address [address] [place] [address]. [place], [place] [address] [place] [address] Care Team Providers Care Acoustics Teacher Name Role Phone Cuca Dutton Primary Care Provider [phone] Reason for Visit * Reason Onset Date Comments Vaginal Problem 01/02/2020 Encounter Details Date Type Department Care Team (Late st Contact Info) Description 01/02/2020 Telephone [facility] Group Family & Internal Medicine [facility] [address] [place] [address] Cuca Dutton FNP [address] [place], [place] [phone] Vaginal Problem Social History Tobacco Use Types [...] Progress Notes * Norma Araujo MA - 01/02/2020 3:07 PM CDT rx sent, patient informed tn * CAROLYN Martin - 01/02/2020 2:07 PM CDT Okay for 150 mg tablet fluconazole take one now and may repeat in 72 hours. * Montserrat Herron - 01/02/2020 11:37 AM CDT Pt needs flucanazole for yeast infection if okay to send in. documented in this encounter Plan of Treatment Not on file documented as of this encounter Visit Diagnoses Diagnosis Yeast infection- Primary Other and unspecified mycoses documented in this encounter Care Teams Acoustics Teacher Relationship Specialty Start Date End Date Cuca Dutton FNP [address] [place] [address] PCP - General Nurse Practitioner Family 05/04/18 documented as of this encounter
--- OUTSIDE RECORDS SUMMARY | 2024-03-25 18:37 | XMS_ITS | Encounter Summary ---
Author Organization [facility] Address [address] [place] [address]. [place], [place] [address] [place] [address] Care Team Providers Care Inorganic Chemical Technician Name Role Phone Cuca Dutton Primary Care Provider Encounter Details Date Type Department Care Team (Latest Contact Info) Description 09/07/2018 Scan [facility] Scanned, Documents [...] on filedocumented in this encounter Care Teams Inorganic Chemical Technician Relationship Specialty Start Date End Date Cuca Dutton FNP [address] [place] [address] PCP - General Nurse Practitioner Family 05/04/18 documented as of this encounter
--- OUTSIDE RECORDS SUMMARY | 2024-03-25 18:37 | XMS_ITS | Encounter Summary ---
Author Organization [facility] Address [address] [place] [address]. [place], [place] [address] [place] [address] Care Team Providers Care Residential Insurance Inspector Name Role Phone Cuca Dutton Primary Care Provider [phone] Reason for Visit * Reason Onset Date Comments Advise 04/18/2019 Encounter Details Date Type Department Care Team (Late st Contact Info) Description 04/18/2019 Telephone [facility] Medical Group Family & Internal Medicine [facility] [address] [place] [address] Cuca Dutton FNP [address] [place] [address] Advise Social History Tobacco Use Types Packs/Day [...] encounter Progress Notes * CAROLYN Martin - 04/18/2019 1:10 PM CST Noted IC LEAD * Emily Eason MA - 04/18/2019 11:22 AM CST Patient wanted to let Cuca know she has an appt with ObGyn on Tuesday regarding her implant and starting an oral BC as well so she is taken care of. Patient wanted to thank her for all of her help regarding this and appreciates all the help. IC LEAD documented in this encounter Plan of Treatment Not on file documented as of this encounter Visit Diagnoses Not on filedocumented in this encounter Care Teams Residential Insurance Inspector Relationship Specialty Start Date End Date [place] CAROLYN Thurman [address] [place] [address] PCP - General Nurse Practitioner Family 05/04/18 documented as of this encounter
--- OUTSIDE RECORDS SUMMARY | 2024-03-25 18:41 | XMS_ITS | Encounter Summary ---
Author Organization [facility] Healthcare Address [address] [place] [address] Care Team Providers Care Packaging Clerk Name Role Phone Marlin Contreras MD Primary Care Provider [phone] Bettie Cabezas MD Unavailable [phone] Encounter Details Date Type Department Care Team (Late st Contact Info) Description 04/14/2023 2:30 PM SUPERVISOR WET ROOM Telemedicine [facility] [address] [facility] Out[facility] Health [address] [place] [address] Bipolar affective disorder, remission status unspecified (HCC) (Primary Dx) Social History Tobacco Use Types Packs/Day Years Used Date Smoking Tobacco: Every Day Vaping Started: 03/28/2017; Last attempted to quit: 03/23/2022 Humiliation, Afraid, Rape, and Kick questionnair e Answer Date Recorded Within the last year, have y ou been afraid of your partner or ex-partner? No 02/23/2022 Within the last year, have y ou been humiliated or emotionally abused in other ways by your partner or ex-partner? No Within the last year, have y ou been kicked, hit, slapped, or otherwise physically hurt by your partner or ex-partner? No 02/23/2022 Within the last year, have y ou been raped or forced to have any kind of sexual activity by your partner or ex-partner? No 02/23/2022 Social Connection and Isolat ion Panel [NHANES] Answer Date Recorded In a typical week, how many times do you talk on the phone with family, friends, or neighbors? More than three times a week 02/23/2022 How often do you get togethe r with friends or relatives? More than three times a week 02/23/2022 How often do you attend chur ch or temple services? Never 02/23/2022 Do you belong to any clubs o r organizations such as amish groups, unions, fraternal or athletic groups, or school groups? No 02/23/2022 How often do you attend meet ings of the clubs or organizations you belong to? Never 02/23/2022 Are you , , di vorced, , never , or living with a partner? Never 02/23/2022 AUDIT-C Answer Date Recorded Q1: How often do you have a drink containing alc ohol? Monthly or less 02/23/2022 Q2: How many drinks containi ng alcohol do you have on a typical day when you are drinking? 1 or 2 02/23/2022 Q3: How often do you have si x or more drinks on one occasion? Never 02/23/2022 Overall Financial Resource Strain (CARDIA) Answe r Date Recorded How hard is it for you to pa y for the very basics like food, housing, medical care, and heating? Not very hard 08/24/2022 PHQ-2 Answer Date Recorded PHQ-2 Total Score (If total score is 3 or more points, staff should administer the PHQ-9) 1 02/23/2022 [facility] - [facility]ational Stress Questionnaire Answer Date Recorded Do you feel stress - tense, restless, nervous, or anxious, or unable to sleep at night because your mind is troubled all the time - these days? Rather much 08/24/2022 Exercise Vital Sign Answer Date Recorde d On average, how many days pe r week do you engage in moderate to strenuous exercise (like a brisk walk)? 0 days 08/24/2022 On average, how many minutes do you engage in exercise at this level? 0 min 08/24/2022 Hunger Vital Sign Answer Date Recorded Within the past 12 months, y ou worried that your food would run out before you got the money to buy more. Never true 02/24/20 22 Within the past 12 months, t he food you bought just didn't last and you didn't have money to get more. Never true 02/23/2022 PRAPARE - Transportation Answer Date Re corded In the past 12 months, has l ack of transportation kept you from medical appointments or from getting medications? No 07/28 In the past 12 months, has l ack of transportation kept you from meetings, work, or from getting things needed for daily living? No 08/24/2022 Housing Stability Vital Sign Answer Siddharth e Recorded In the last 12 months, was t here a time when you were not able to pay the mortgage or rent on time? No 02/23/2022 In the last 12 months, how many places have you lived? 1 02/23/2022 In the last 12 months, was t here a time when you did not have a steady place to sleep or slept in a alf (including now)? No 02/23/2022 Personal Safety Answer Date Recorded Have you ever been in or are you currently in a harmful physical or emotional relationship or is someone making you feel afraid or unsafe? Denies 08/24/2022 Comments No Sex and Gender Information Value Date Recorded Sex Assigned at Not on file Legal Sex Female 12:29 PM SUPERVISOR WET ROOM Gender Identity Not on file Sexual Orientation Not on file documented as of this encounter Progress Notes * Bettie Cabezas MD - 04/14/2023 2:30 PM CST Patient ID: Stephanie Coates is a 23 y.o. female with a date of of 2000. She is presenting to the [facility] for a follow-up appointment. She was last seen on 03/23/2023. This was a telemedicine visit with Stephanie Coates alone which took place via real-time video connection. During the visit, I was located in the office and the patient was located at home in the state [facility]. The patient visit started at 2:30 and ended at 2:55. My total encounter time on 04/14/2023 was 30 minutes which was spent in the activities documented in the note. This includes time spent prior to the visit and after the visit in direct care of the patient. This time does not include time spent in any separately reportable services. I have explained the option of participating in a telemedicine visit to the patient. After being given an opportunity to ask questions about and discuss this type of visit, the patient verbally consented to proceeding with the telemedicine visit. The patient understands that this service replaces an office visit and they may be billed and/or responsible for any applicable copayments. Chief Complaint I'm okay Sources of Information: Patient, who seems reliable. Chart, which is presumed to be reliable. HPI: Patient reports she has been more anxious this month. This has been impacting sleep with her wakingup every couple of hours and having difficulty falling asleep. She has tried melatonin but that wasn't helpful. Still getting 5-6 hours a sleep nightly. Not taking naps during the day frequently. Sheis working on her daytime schedule and is actively applying for jobs. No reported side effects of medications. She reports decreased mood some days but denies other symptoms of depression (baseline has difficulty focusing from ADHD). No increased goal directed activity, impulsivity or elevated/irritable mood. We discussed behavioral changes during the day including morning light, working out lightly, no phone before bed, daily schedule and having a night time routine. No SI/HI. No reported substance use outside of a few glasses of wine during the last few weeks. Tolerating medications well without side effects. I have reviewed Family History, Social History, and Medical History as documented in the electronicrecords Allergies: Sulfa (sulfonamide antibiotics) and Sulfamethoxazole-trimethoprim Medications: Current Outpatient Medications Medication Sig Dispense Refill betamethasone dipropionate (DIPROLENE) 0.05 % ointment Apply topically 2 (two) times a day 30 g 1 buPROPion XL (Wellbutrin XL) 300 mg 24 hr tablet Take 1 tablet (300 mg total) by mouth every morning 90 tablet 1 lamoTRIgine XR (LaMICtal XR) 300 mg tablet extended release 24hr Take 1 tablet (300 mg total) by mouth daily 30 tablet 2 lithium ER (ESKALITH) 450 mg CR tablet Take 2 tablets (900 mg total) by mouth nightly 180 tablet 1 lurasidone (LATUDA) 80 mg tablet Take 1 tablet (80 mg total) by mouth daily with dinner 90 tablet 1 nicotine polacrilex (NICORETTE) 2 mg gum Chew 1 each (2 mg total) every 2 (two) hours as needed forsmoking cessation 100 each 0 tirzepatide, weight loss, (Zepbound) 2.5 mg/0.5 mL pen injector Inject 0.5 mL (2.5 mg total) under the skin every 7 days 2 mL 1 traZODone (DESYREL) 100 mg tablet Take 1 tablet (100 mg total) by mouth nightly as needed for sleep30 tablet 0 No current facility-administered medications for this visit. Tremfya ROS: Symptoms endorsed: per HPI Symptoms denied: CP, SOB, GI pain, change in appetite All other systems reviewed are negative There were no vitals taken for this visit. Weight 166 (previously 150) Physical Exam: Unable to assess d/t nature of visit Mental Status Exam: General Appearance and Behavior: appears stated age, appropriately groomed, good eye contact, psychomotor neutral, cooperative, pleasant Speech: normal tone and amount, regular rate, rhythm, volume, latency. Flow of Thought: logical and sequential Content of Thought: no evidence of SI/HI/AVH. No e/o paranoia or delusions Mood: anxious Affect: euthymic, appropriately reactive, mood congruent Insight: good Judgment: good Sensorium: A&Ox4 Laboratory Data: Last labs reviewed Li 07/07 0.7 08/23 0.4 Assessment: Diagnoses and all orders for this visit: Bipolar affective disorder, remission status unspecified (HCC) (Primary) Ms. Coates is a 21 year old female with history of bipolar affective disorder who presents for follow up. No change in diagnostic formulation presently. Patient continues to progress. Having worsening of anxiety symptoms this month, dicussed behavioralchanges including normal schedule, exercising, and bedtime routines. Discussed risks and benefits of sleep medications but patient prefers to try behavioral changes and assess how that goes. Tolerating medications well without side effects. Continue to have discussions of risks of Wellbutrin. She understands and would like to continue for now (also seems to be addressing ADHD symptoms (though hasnoted improvement in focus with stopping lithium) so will have to reassess if benefit outweight risk in coming months). Consider also that Wellbutrin might be impacting patient's anxiety and continuehaving conversations of risks/benefits in the future. Patient knows to reach out if she has emergence of hypomanic/manic symptoms. If not controlled on Lamictal can consider Depakote (will have to discuss control) or Trileptal. She is no longer taking hydroxyzine so will take off medication list. Continues to go to therapy to address anxiety. Zepbound was not approved with patient's insurance will continue to monitor weight over time. Plan: 1. Pharmacotherapy: -continue Latuda 80mg nightly (with >350 calorie) -continue Wellbutrin XL 300mg daily -continue Lamictal 300mg daily Discussed risks, benefits, side effects, and alternatives to treatment plan with patient providing informed consent 2. Psychotherapy: - I provided supportive and motivational psychotherapy focusing on behavioral activation and continued compliance with medication throughout the duration of the interview -continue weekly DBT therapy 3. Medical: - Follow up with dermatology regarding psoriasis 4. Labs: - Psoriasis, plan to follow w/ derm 5. Psychosocial: - denies acute needs 6. Substance use: - Continue to encourage cessation/abstinence of drugs/alcohol - Provide motivational interviewing and supportive therapy as appropriate 7. Risk Assessment: Patient is a chronically elevated risk but not acute risk of harm given: Risk factors: Risk Factors: chronic psychiatric disorder, recent financial loss, and history of impulsivity Protective factors: currently not suicidal, currently not homicidal, currently not psychotic, currently not manic, currently not intoxicated, accessible healthcare/mental health resources, housing, family, good insight,good judgment, and plan of cessation/abstinence from substance use Risk factors are being optimized with treatment/follow-up and protective factors demonstrate that patient remains appropriate and stable for outpatient management at this time with no indication for higher level of restrictive care. Denies SI/HI/AVH and demonstrates no active psychosis, eladio, depression, or acute intoxication that would warrant inpatient psychiatric admission. The least restrictive environment at this time continues to be outpatient follow-up and community care. She understands that she should return to the ED, call 911, or ask family members for help if beginning to experience worsening suicidal ideation, thoughts of killing or harming herself, thinking she cannot keep herself safe, or hearing or seeing anything out of the ordinary. The patient has my card with instructions to call with general questions/concerns but in the case of an emergency where there is concern of harm to self/others to presentto the ER or call 911. 8. Follow up: Return to clinic in 3-4 weeks Appointment information: Start: 2:30pm Stop: 2:55 pm Total time: 25 minutes, I also spent 10 minutes reviewing medical records for this encounter. Bettie Cabezas MD Business Services Associate, PGY-4 RVISOR WET ROOM documented in this encounter Plan of Treatment Not on file documented as of this encounter Visit Diagnoses Diagnosis Bipolar affective disorder, remission status unspecified (HCC)- Primary documented in this encounter Discontinued Medications Medication Sig Discontinue Reason Start Date End Da te betamethasone dipropionate (DIPROLENE) 0.05 % ointment Apply topically 2 (two) times a day Other 10/20/2022 04/14/2023 lithium ER (ESKALITH) 450 mg CR tabletIndications:Bipola r Disorder Take 2 tablets (900 mg total) by mouth nightly Other 01/21/2023 04/14/2023 documented as of this encounter Care Teams Packaging Clerk Relationship Specialty Start Date End Date Marlin Contreras MD PCP - General 04/07/17 10/09/23 Bettie Cabezas MD [address] [place] [address] Resident Psychiatry 03/23/22 09/23/23 documented as of this encounter
--- OUTSIDE RECORDS SUMMARY | 2024-03-25 18:41 | XMS_ITS | Encounter Summary ---
Author Organization [facility] Healthcare Address [address] [place] [address] Care Team Providers Care Carpentry Supervisor Name Role Phone Marlin Contreras MD Primary Care Provider [phone] Bettie Cabezas MD Unavailable [phone] Encounter Details Date Type Department Care Team (Late st Contact Info) Description 12/20/2022 Orders Only [facility]- [facility]iatry [facility] [address] [facility] Out[address] [place] [address] Bettie Cabezas MD [address] [place] [address] Social History Tobacco Use Types Packs/Day Years [...] 02/23/2022 How often do you attend chur or uatsdin services? Never 02/23/2022 Do you belong to any clubs o r organizations such as moravian groups, unions, fraternal or athletic groups, or [...] staff should administer the PHQ-9) 1 02/23/2022 [facility] - Occupational Stress Questionnaire Answer Date Recorded [...] place to sleep or slept in a half-way (including now)? No 02/23/2022 Personal Safety Answer Date Recorded Have you ever been in or are you currently in a harmful physical or emotional relationship or is someone making you feel afraid or unsafe? 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 She continues to have side effects including weight gain and psoriasis that she doesn't find tolerable and patient wants to discontinue. Limited mood symptoms currently, sleeping, no SI. Will plan to transition to lamictal, will start at 25mg for the first two weeksand up titrate to 50mg daily for another two weeks. Discussed r/b/se and patient will call and stopmedication if rash occurs. Will plan for close f/u. documented in this encounter Plan of Treatment Not on file documented as of this encounter Visit Diagnoses Not on filedocumented in this encounter Discontinued Medications Medication Sig Discontinue Reason Start Date End Da te lamoTRIgine (LaMICtal) 25 mg tablet Take 1 tablet (25 mg total) by mouth daily Reorder 12/20/2022 12/20/2022 documented as of this encounter Care Teams Carpentry Supervisor Relationship Specialty Start Date End Date Marlin Contreras MD PCP - General 04/07/17 10/09/23 Bettie Cabezas MD [address] [place] [address] Resident Psychiatry 03/23/22 09/23/23 documented as of this encounter
--- OUTSIDE RECORDS SUMMARY | 2024-03-25 18:41 | XMS_ITS | Encounter Summary ---
Author Organization [facility] Healthcare Address [address] [place] [address] Care Team Providers Care Parts Counterperson Name Role Phone Marlin Contreras MD Primary Care Provider [phone] Bettie Cabezas MD Unavailable [phone] Encounter Details Date Type Department Care Team (Late st Contact Info) Description 02/22/2023 3:00 PM HOT DIPPER Telemedicine [facility] [address] [facility] [address] [facility] [address] [place] [address] Bipolar affective disorder, remission status [...] often do you attend chur ch or latter day services? Never 02/23/2022 Do you belong to any clubs o r organizations such as synagogue groups, unions, fraternal or athletic groups, or [...] staff should administer the PHQ-9) 1 02/23/2022 [facility] Answer Date Recorded [...] place to sleep or slept in a fpc (including now)? No 02/23/2022 Personal Safety Answer Date Recorded Have you ever been in or are you currently in a harmful physical or emotional relationship or is someone making you feel afraid or unsafe? Denies 08/24/2022 Comments No Sex and Gender Information Value Date Recorded Sex Assigned at Not on file Legal Sex Female 12:29 PM HOT DIPPER Gender Identity Not on file Sexual Orientation Not on file documented as of this encounter Progress Notes * Bettie Cabezas MD - 02/22/2023 3:00 PM CST Patient ID: Stephanie Coates is a 22 y.o. female with a date of of 2000. She is presenting to the [facility] Psychiatry Clinic for a follow-up appointment. She was last seen on 01/18/2023. This was a telemedicine visit with Stephanie Coates alone which took place via real-time video connection. During the visit, I was located at home and the patient was located at home in the [place] [facility]. The patient visit started at 3:00pm and ended at 3:10pm. I have explained the option of participating in a telemedicine visit to the patient. After being given an opportunity to ask questions about and discuss this type of visit, the patient verbally consented to proceeding with the telemedicine visit. The patient understands that this service replaces an office visit and they may be billed and/or responsible for any applicable copayments. Chief Complaint I'm doing well Sources of Information: Patient, who seems reliable. Chart, which is presumed to be reliable. HPI: Since her last visit patient tried going down on lithium to 450mg but started having poor sleep andracing thoughts, lithium was increased back to 900mg qhs and lamictal was up titrated to 300mg daily. She has had good mood and energy since going up on Lamictal. No depressive or manic symptoms currently, she's feeling like her old self. Tolerating well without side effects. She still has psoriasis lesions on her body and scalp, requesting again to discontinue lithium. She took Ambien for a couple of days for sleep and thought it was helpful. Not using canabis or other substances. She is working on DBT principles and would like to be applying for jobs in March. I have reviewed Family History, Social History, [...] by mouth every morning 90 tablet 1 hydrOXYzine (ATARAX) 25 mg tablet Take 2 tablets (50 mg total) by mouth 3 (three) times a day as needed for anxiety Can take up to 75mg (3 tablets) at night as needed for anxiety 80 tablet 2 lamoTRIgine XR (LaMICtal XR) 100 mg tablet extended release 24hr Take 1 tablet (100 mg total) by mouth daily Take with 1 tablet of 200mg Lamictal for a total dose of 300mg. 30 tablet 3 lamoTRIgine XR (LaMICtal XR) 200 mg tablet extended release 24hr Take 1 tablet (200 mg total) by mouth daily 30 tablet 3 lithium ER (ESKALITH) 450 mg CR tablet Take 2 tablets (900 mg total) by mouth nightly 180 tablet 1 lurasidone (LATUDA) 80 mg tablet Take 1 tablet (80 mg total) by mouth daily with dinner 90 tablet 1 nicotine polacrilex (NICORETTE) 2 mg gum Chew 1 each (2 mg total) every 2 (two) hours as needed forsmoking cessation 100 each 0 traZODone (DESYREL) 100 mg tablet Take 1 tablet (100 mg total) by mouth nightly as needed for sleep30 tablet 0 No current facility-administered medications for this visit. ROS: Symptoms endorsed: per HPI Symptoms denied: [...] SI/HI/AVH. No e/o paranoia or delusions Mood: good Affect: euthymic, appropriately reactive, mood congruent Insight: [...] in diagnostic formulation presently. Patient continues to have improvement in mood symptoms on current regimen, though due to side effects are cross titrating lithium to Lamictal. She has had psoriasis lesions and weight gain on lithiumthat are intolerable and with increase of Lamictal to 300mg will try again to down titrate lithium.Patient knows to reach out if she has emergence of hypomanic/manic symptoms. If not controlled on Lamictal can consider Depakote (will have to discuss control) or Trileptal. Hydroxyzine and therapy to address ongoing anxiety. Can consider interventional psychiatry consult in the future if patient has worsening mood symptoms. Li level a couple of months ago was 0.7, in the hospital on 08/23 was 0.4 but this was longer than 12 hours out, will get repeat level in a couple of months (patient did not tolerate up titration in the past d/t side effects). Also consider medications for metabolic side effects, patient has had 16lb weight gain and while patient has not been interested in metformin d/t side effects will plan to discuss Ozempic once medication list is more manageable after stopping [place]. Plan: 1. Pharmacotherapy: -continue Latuda 80mg nightly (with >350 calorie) -decrease lithium from 900mg nightly to 450mg nightly -continue Wellbutrin XL 300mg daily -continue Lamictal 300mg -continue PRN Hydroxyzine 75mg qhs PRN and 25mg BID PRN Discussed risks, benefits, side effects, and alternatives to treatment plan with patient providing informed consent 2. Psychotherapy: - I provided supportive and motivational psychotherapy focusing on behavioral activation and continued compliance with medication throughout the duration of the interview -continue weekly DBT therapy 3. Medical: - Follow up with dermatology regarding rash 4. Labs: - Psoriasis, plan to follow [...] 8. Follow up: Return to clinic in 2 weeks Appointment information: Start: 3:00pm Stop: 3:10 pm Total time: 10 minutes, I also spent 10 minutes reviewing medical records for this encounter. Bettie Traore MD Remelt Pan Tank Operator, PGY-4 DIPPER documented in this encounter Plan of Treatment Not on file documented as of this encounter Visit Diagnoses Diagnosis Bipolar affective disorder, remission status unspecified (HCC)- Primary documented in this encounter Care Teams Parts Counterperson Relationship Specialty Start Date End Date Marlin Contreras MD PCP - General 04/07/17 10/09/23 Bettie Cabeazs MD [address] [place] [address] Resident Psychiatry 03/23/22 09/23/23 documented as of this encounter
--- OUTSIDE RECORDS SUMMARY | 2024-03-25 18:41 | XMS_ITS | Encounter Summary ---
Author Organization [facility] Healthcare Address [address] [place] [address] Care Team Providers Care Seasonal Package Handler Name Role Phone Marlin Contreras MD Primary Care Provider [phone] Bettie Cabezas MD Unavailable [phone] Reason for Visit * Reason Onset Date Comments Scheduling Appointments 05/02/2023 Encounter Details Date Type Department Care Team (Late st Contact Info) Description 05/02/2023 Telephone [facility]- Psychiatry Clinic [address] [facility] [address] [place] [address] Bettie Cabezas MD [facility] [address] [place] [address] Scheduling Appointments Social History Tobacco Use Types Packs/Day Years [...] How often do you attend chur or scientologist services? Never 02/23/2022 Do you belong to any clubs o r organizations such as adventist groups, unions, fraternal or athletic groups, or [...] staff should administer the PHQ-9) 1 02/23/2022 [facility] of Occupat ional Health - Occupational Stress Questionnaire Answer Date [...] place to sleep or slept in a penitentiary (including now)? No 02/23/2022 Personal Safety Answer Date Recorded Have you ever been in or are you currently in a harmful physical or emotional relationship or is someone making you feel afraid or unsafe? Denies 08/24/2022 Comments No Sex and Gender Information Value Date Recorded Sex Assigned at Not on file Legal Sex Female 12:29 PM STONE CUTTER Gender Identity Not on file Sexual Orientation Not on file documented as of this encounter Miscellaneous Notes * Telephone Encounter - Riana Guidry - 05/02/2023 11:07 AM CST Provider was smart [employer]: Please call Stephanie BARRAGAN 2000. If you could let us know the time for the 05/17. Patient stated the afternoon. Please call to confirm with patient. Let us know if this in vis zoom. Riana E CUTTER * Telephone Encounter - Bettie Cabezas MD - 05/02/2023 10:38 AM STONE CUTTER Attempted to contact patient after she did not present for zoom visit, left a voicemail to try to reschedule for 05/17 and for patient to notify provider if there were concerns in the meantime. E CUTTER documented in this encounter Plan of Treatment Not on file documented as of this encounter Visit Diagnoses Not on filedocumented in this encounter Care Teams Seasonal Package Handler Relationship Specialty Start Date End Date Marlin Contreras MD PCP - General 04/07/17 10/09/23 Bettie Cabezas MD [address] [place] [address] Resident Psychiatry 03/23/22 09/23/23 documented as of this encounter"
--- OUTSIDE RECORDS SUMMARY | 2024-03-25 18:41 | XMS_ITS | Referral Summary ---
Author Organization [facility] Address [address] [place] [phone] Care Team Providers Care Spline Rolling Machine Job Setter Name Role Phone Cuca Dutton NP Primary Care Provider [phone] Clarice Perkins MD Unavailable Encounters Date Type Department Care Team Description 02/06/2024 9:15 AM WORD PROCESSING SPECIALIST Telemedicine [facility]ry [facility] [address] [place] [address] Outpatient Health [address] [place] [phone] Clarice Perkins MD Bipolar I disorder, current or most recent episode depressed, in full remission (HCC) (Primary Dx) 02/03/2024 Telephone [facility] [address] [place] [address] [place] [phone] Clarice Perkins MD Appointment Reminder Call from Last 3 Months Allergies Active Allergy Reactions Criticality Noted Date Comments Sulfa (Sulfonamide Antibiotics) Hives Medium 03/28 Sulfamethoxazole-Trimethoprim Itching,Rash Medium 09/26 Medications levonorgestreL (Mirena) IUD 1 each by intrauterine route once 3 Active naltrexone (DEPADE) 50 mg tablet Take 0.5 tablets (25 mg total) by mouth daily 4 Active buPROPion XL (Wellbutrin XL) 300 mg 24 hr tablet Take 1 tablet (300 mg total) by mouth every morning 90 tablet 4 Active lurasidone (LATUDA) 80 mg tabletIndicati ons:Depression associated with Bipolar Disorder Take 1 tablet (80 mg total) by mouth daily with dinner 90 tablet 4 Active lamoTRIgine XR (LaMICtal XR) 300 mg tablet extended release 24hr Take 1 tablet (300 mg total) by mouth daily 90 tablet 4 025 Active lamoTRIgine XR (LaMICtal XR) 300 mg tablet extended release 24hr Take 1 tablet (300 mg total) by mouth daily 90 tablet 4 024 Discontin ued(Reord er) Active Problems Problem Noted Date Diagnosed Date Bipolar disorder, current ep isode depressed, mild or moderate severity, unspecified 03/23/2022 Routine general medical exam ination at a health care facility 02/02/2022 Assessment & Plan (03/23/2022 1:39 PM WORD PROCESSING SPECIALIST): Unremarkable exam this admit. Encouraged routine OP HCM with PCP. Assessment & Plan (02/23/2022 1:23 PM WORD PROCESSING SPECIALIST): No medical complaints or active medical issues identified Remainder of plan per Psychiatry Assessment & Plan (02/02/2022 3:25 PM WORD PROCESSING SPECIALIST): No active complaints or chronic medical conditions identified The rest of the plan is per the psych Service Resolved Problems Problem Noted Date Diagnosed Date Resolved Date Depression, unspecified depression type 08/23/2022 08/25/2022 Suicidal ideation 03/22/2022 03/23/2022 Assessment & Plan (03/23/2022 1:38 PM WORD PROCESSING SPECIALIST): Seen by psychiatry, management as elsewhere. Continue lithium, atarax and aristada for bipolar type 1 per psychiatry. Euthyroid. Monitoring for symptom improvement. Bipolar affective disorder t ype 1, current episode manic, severe, with psychotic symptoms 02/23/2022 12/12/2023 Assessment & Plan (02/23/2022 5:20 PM WORD PROCESSING SPECIALIST): As per Psychiatry Team Cannabis dependence 02/02/2022 12/12/19 24 Assessment & Plan (03/23/2022 1:36 PM WORD PROCESSING SPECIALIST): UDS+cannabinoids this admit. Pt endorses frequent use. Counseled on abstinence, pre-contemplational. Assessment & Plan (02/23/2022 5:20 PM WORD PROCESSING SPECIALIST): As per Psychiatry Team Bipolar affective disorder, current episode manic with psychotic symptoms ([facility]) 02/01/2022 12/12/2023 Assessment & Plan (02/15/2022 10:40 PM WORD PROCESSING SPECIALIST): Stephanie is currently experiencing a manic episode. She has been diagnosed with MDD, JOHN, ADHD in the past and was medicated for these conditions. With her current manic symptoms, we believe that bipolar disorder is a more accurate diagnosis and??treated her with Abilify (initio loading dose). ?? Today, her delusions have improved and she no longer believes that she is in a relationship with Aiden Noriega or that her grandfather is Kyhmer. She has not endorsed any SI/HI/AH/VH. Based on her improvement, her parents feel like they can take her home tomorrow with outpatient management. ?? Plan - 21 day hold (02/10); admitted??on 96 hour hold, renewed on 02/08 based on parental concerns - Imodium PRN 2 doses daily max - Decreased Ativan from 1 to 0.5mg in preparation for discharge with no Ativan PRN -??Abilify 20 mg PO??with Initio loading and maintenance 882mg monthly with emla given 02/04/2022 - Thorazine 100mg TID - Nicotine gum and Nicotine patch - Discharge tomorrow 02/16 at 3 pm; Dad will pick her up Social History Tobacco Use Types Packs/Day Years Used Date Smoking Tobacco: Former Vaping 0 03/28/2017 - 03/23/2022 Tobacco Cessation:Counseling Given: Not Answered Humiliation, Afraid, Rape, and Kick questionnair e [...] often do you attend chur ch or rastafari services? Never 02/23/2022 Do you belong to any clubs o r organizations such as caodaism groups, unions, fraternal or athletic groups, or [...] staff should administer the PHQ-9) 1 02/23/2022 [facility] of Occupat ional Health - Occupational Stress [...] place to sleep or slept in a nursing home (including now)? No 02/23/2022 Personal Safety Answer Date Recorded Have you ever been in or are you currently in a harmful physical or emotional relationship or is someone making you feel afraid or unsafe? Denies 08/24/2022 Comments No Sex and Gender Information Value Date Recorded Sex Assigned at Not on file Legal Sex Female 12:29 PM WORD PROCESSING SPECIALIST Gender Identity Not on file Sexual Orientation Not on file Last Filed Vital Signs Vital Sign Reading Time Taken Comments Blood Pressure 111/82 10/10/2023 8:55 AM CDT Pulse 80 10/10/2023 8:55 AM CDT Temperature 36.7 ??C (98.1 ??F) 10/10/2023 8:55 AM CD T Respiratory Rate 15 10/10/2023 8:55 AM CDT Oxygen Saturation 100% 10/10/2023 8:55 AM CDT Inhaled Oxygen Concentration - - Weight 91.3 kg (201 lb 4.8 oz) 10/10/2023 8:55 A M CDT Height 162.6 cm (5' 4 ) 10/10/2023 8:55 AM CDT Body Mass Index 34.55 10/10/2023 8:55 AM CDT Plan of Treatment Not on file Insurance [employer] Advance Directives For more information, please contact: [phone] * Full Code (Latest Code Status on File) Date Activated Date Inactivated Comments 08/24/2022 3:20 PM 08/26/2022 8:58 PM * Full Code Date Activated Date Inactivated Comments 03/22/2022 10:52 PM 03/24/2022 4:44 PM * Full Code Date Activated Date Inactivated Comments 02/23/2022 12:57 PM 02/27/2022 5:37 PM * Full Code Date Activated Date Inactivated Comments 02/01/2022 9:30 PM 02/16/2022 7:50 PM Care Teams Spline Rolling Machine Job Setter Relationship Specialty Start Date End Date Cuca Dutton NP PCP - General Nurse Practitioner 10/10/23 Clarice Perkins MD [id number] [place] [address] Resident Psychiatry 10/10/23 09/21/24
--- OUTSIDE RECORDS SUMMARY | 2024-03-25 18:41 | XMS_ITS | Encounter Summary ---
Author Organization [facility] Healthcare Address [address] [place] [address] Care Team Providers Care Electric Transfer Operator Name Role Phone Marlin Contreras MD Primary Care Provider [phone] Bettie Cabezas MD Unavailable [phone] Encounter Details Date Type Department Care Team (Late st Contact Info) Description 02/14/2023 Orders Only [facility]- Psychiatry Clinic [address] [facility] Outpatient Health [address] [place] [address] Bettie Cabezas MD [address] [place] [address] Social History Tobacco Use Types [...] any clubs o r organizations such as christian groups, unions, fraternal or athletic groups, or [...] staff should administer the PHQ-9) 1 02/23/2022 [facility] of Occupat ionny Health - Occupational Stress Questionnaire Answer Date [...] place to sleep or slept in a fdc (including now)? No 02/23/2022 Personal Safety Answer Date Recorded Have you ever been in or are you currently in a harmful physical or emotional relationship or is someone making you feel afraid or unsafe? Denies 08/24/2022 Comments No Sex and Gender Information Value Date Recorded Sex Assigned at Not on file Legal Sex Female 12:29 PM FRIED CAKE MAKER Gender Identity Not on file Sexual Orientation Not on file documented as of this encounter Ordered Prescriptions Prescription Sig Dispense Quantity Refills Last Filled Start Date End Date lamoTRIgine XR (LaMICtal XR) 100 mg tablet extended release 24hr Take 1 tablet (100 mg total) by mouth daily Take with 1 tablet of 200mg Lamictal for a total dose of 300mg. 30 tablet 3 02/14/2023 3 documented in this encounter Progress Notes * Bettie Traore MD - 02/14/2023 2:43 PM CST Called patient back and will increase Lamictal today, with patient tolerating. Then in the future can consider down titration if indicated but with recent failure with stopping lithium would rather have her on a higher dose of lamictal. Patient was amenable, discussed se/r/b/a and she will take additional tablet of 100mg XR lamictal with her 200mg Xr tablet for a total of 300mg daily. D CAKE MAKER documented in this encounter Plan of Treatment Not on file documented as of this encounter Visit Diagnoses Not on filedocumented in this encounter Care Teams Electric Transfer Operator Relationship Specialty Start Date End Date Marlin Contreras MD PCP - General 04/07/17 10/09/23 Bettie Cabezas MD [address] [place] [address] Resident Psychiatry 03/23/22 09/23/23 documented as of this encounter
--- OUTSIDE RECORDS SUMMARY | 2024-03-25 18:41 | XMS_ITS | Encounter Summary ---
Author Organization [facility] Healthcare Address [address] [place] [address] Care Team Providers Care Automobile Carpets Molder Name Role Phone Marlin Contreras MD Primary Care Provider [phone] Bettie Cabezas MD Unavailable [phone] Encounter Details Date Type Department Care Team (Late st Contact Info) Description 07/29/2023 Telephone [facility]- Psychiatry Clinic [address] [facility] Outpatient Health [address] [place] [address] Bettie Cabezas MD [address] [place], [place] [id number] Social History Tobacco Use Types Packs/Day Years [...] How often do you attend chur or yarsani services? Never 02/23/2022 Do you belong to any clubs o r organizations such as buddhist groups, unions, fraternal or athletic groups, or [...] staff should administer the PHQ-9) 1 02/23/2022 [facility] of Occupat ional Health - Occupational Stress [...] place to sleep or slept in a [place] health [place] facility (including now)? No 02/23/2022 Personal Safety Answer Date Recorded Have you ever been in or are you currently in a harmful physical or emotional relationship or is someone making you feel afraid or unsafe? Denies 08/24/2022 Comments No Sex and Gender Information Value Date Recorded Sex Assigned at Not on file Legal Sex Female 12:29 PM RAILROAD CRANE OPERATOR Gender Identity Not on file Sexual Orientation Not on file documented as of this encounter Miscellaneous Notes * Telephone Encounter - Bettie Cabezas MD - 07/29/2023 10:04 AM CDT Spoke with patient, weight loss provider is planning to add Naltrexone to Wellbutrin for weight loss purpose. Talked with patient about risks/benefits including if there were changes to mood to call our clinic. Other provider will manage medication. documented in this encounter Plan of Treatment Not on file documented as of this encounter Visit Diagnoses Not on filedocumented in this encounter Care Teams Automobile Carpets Molder Relationship Specialty Start Date End Date Marlin Contreras MD PCP - General 04/07/17 10/09/23 Bettie Cabezas MD [address] [place] [address] Resident Psychiatry 03/23/22 09/23/23 documented as of this encounter
--- OUTSIDE RECORDS SUMMARY | 2024-03-25 18:41 | XMS_ITS | Encounter Summary ---
Author Organization [facility] Healthcare Address [address] [place] [address] Care Team Providers Care Club Licensee Name Role Phone Marlin Contreras MD Primary Care Provider [phone] Bettie Cabezas MD Unavailable [phone] Reason for Visit * Reason Onset Date Comments Follow-up 12/20/2022 Encounter Details Date Type Department Care Team (Latest Contact Info) Description 12/20/2022 Telephone Psychiatry Bettie Cabezas MD [address] [place], [place] [id number] Follow-up Social History Tobacco Use Types Packs/Day Years [...] often do you attend chur ch or orthodoxy services? Never 02/23/2022 Do you belong to any clubs o r organizations such as anabaptist groups, unions, fraternal or athletic groups, or [...] staff should administer the PHQ-9) 1 [facility] Answer Date Recorded [...] place to sleep or slept in a care home (including now)? No 02/23/2022 Personal Safety Answer Date Recorded Have you ever been in or are you currently in a harmful physical or emotional relationship or is someone making you feel afraid or unsafe? Denies 08/24/2022 Comments No Sex and Gender Information Value Date Recorded Sex Assigned at Not on file Legal Sex Female 12:29 PM MEAT CUTTING BLOCK REPAIRER Gender Identity Not on file Sexual Orientation Not on file documented as of this encounter Miscellaneous Notes * Telephone Encounter - Riana Guidry - 12/20/2022 9:22 AM CDT Patient missed your call. Please call back. Provider was smart webbed: please call back Stephanie BARRAGAN 2000. Riana * Telephone Encounter - Bettie Traore MD - 12/20/2022 8:23 AM CDT Attempted to call to speak with patient to discuss switching from lithium to lamictal due to side effects. Unable to reach. Voicemail was left. documented in this encounter Plan of Treatment Not on file documented as of this encounter Visit Diagnoses Not on filedocumented in this encounter Care Teams Club Licensee Relationship Specialty Start Date End Date Marlin Contreras MD PCP - General 04/07/17 10/09/23 Bettie Cabezas MD [address] [place] [address] Resident Psychiatry 03/23/22 09/23/23 documented as of this encounter
--- OUTSIDE RECORDS SUMMARY | 2024-03-25 18:41 | XMS_ITS | Encounter Summary ---
Author Organization [facility] Healthcare Address [address] [place] [address] Care Team Providers Care Executive Associate Name Role Phone Marlin Contreras MD Primary Care Provider [phone] Bettie Cabezas MD Unavailable [phone] Encounter Details Date Type Department Care Team (Late st Contact Info) Description 03/10/2023 Telephone [facility]- Psychiatry Clinic [address] [facility] Health [address] [place] [phone] Catrina Trejo RN Social History Tobacco Use Types Packs/Day Years [...] often do you attend chur ch or confucianist services? Never 02/23/2022 Do you belong to any clubs o r organizations such as congregational groups, unions, fraternal or athletic groups, or [...] staff should administer the PHQ-9) 1 02/23/2022 [facility] - Occupational Stress Questionnaire Answer Date Recorded [...] place to sleep or slept in a senior living (including now)? No 02/23/2022 Personal Safety Answer Date Recorded Have you ever been in or are you currently in a harmful physical or emotional relationship or is someone making you feel afraid or unsafe? Denies 08/24/2022 Comments No Sex and Gender Information Value Date Recorded Sex Assigned at Not on file Legal Sex Female 12:29 PM DEICER ELEMENT WINDER MACHINE Gender Identity Not on file Sexual Orientation Not on file documented as of this encounter Ordered Prescriptions Prescription Sig Dispense Quantity Refills Last Filled Start Date End Date semaglutide 0.25 mg or 0.5 mg (2 mg/3 mL) pen injector injection Inject 0.5 mg under the skin every 7 days 3 mL 2 03/11/2023 03/16/2023 documented in this encounter Miscellaneous Notes * Telephone Encounter - Bettie Cabezas MD - 03/11/2023 9:17 AM DEICER ELEMENT WINDER MACHINE Patient called to discuss starting weight medication. Sent Ozempic script in will have to see if insurance will cover it. ER ELEMENT WINDER MACHINE documented in this encounter Plan of Treatment Not on file documented as of this encounter Visit Diagnoses Not on filedocumented in this encounter Care Teams Executive Associate Relationship Specialty Start Date End Date Marlin Contreras MD PCP - General 04/07/17 10/09/23 Bettie Cabezas MD [address] [place] [address] Resident Psychiatry 03/23/22 09/23/23 documented as of this encounter
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
--- OUTSIDE RECORDS SUMMARY | 2024-03-25 18:41 | XMS_ITS | Encounter Summary ---
Author Organization [facility] Healthcare Address [address] [place] [address] Care Team Providers Care Chief Clinical Dietitian Name Role Phone Marlin Contreras MD Primary Care Provider [phone] Bettie Cabezas MD Unavailable [phone] Cuca Dutton NP Primary Care Provider + [phone] Clarice Perkins MD Unavailable [phone] Encounter Details Date Type Department Care Team (Latest Contact Info) Description 03/16/2023 Orders Only Psychiatry Bettie Cabezas MD [address] [place] [address] Social History Tobacco Use Types [...] How often do you attend chur or pentecostalism services? Never 02/23/2022 Do you belong to any clubs o r organizations such as bahai groups, unions, fraternal or athletic groups, or [...] staff should administer the PHQ-9) 1 02/23/2022 [facility] ional [facility] - Occupational [...] place to sleep or slept in a long term (including now)? No 02/23/2022 Personal Safety Answer Date Recorded Have you ever been in or are you currently in a harmful physical or emotional relationship or is someone making you feel afraid or unsafe? 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[employer] Gender Identity Not on file Sexual Orientation Not on file documented as of this encounter Plan of Treatment Not on file documented as of this encounter Visit Diagnoses Not on filedocumented in this encounter Discontinued Medications Medication Sig Discontinue Reason Start Date End Da te semaglutide 0.25 mg or 0.5 mg (2 mg/3 mL) pen injector injection Inject 0.5 mg under the skin every 7 days Other 03/11/2023 03/16/2023 documented as of this encounter Care Teams Chief Clinical Dietitian Relationship Specialty Start Date End Date Marlin Contreras MD PCP - General 04/07/17 10/09/23 Cuca Dutton NP [address] [place] [address] PCP - General Nurse Practitioner 10/10/23 Bettie Cabezas MD [address] [place] [address] Resident Psychiatry 03/23/22 09/23/23 Clarice Perkins MD [address] [facility] [id number] [place] [address] Resident Psychiatry 10/10/23 09/21/24 documented as of this encounter
--- OUTSIDE RECORDS SUMMARY | 2024-03-25 18:41 | XMS_ITS | Encounter Summary ---
Author Organization [facility] Healthcare Address [address] [place] [address] Care Team Providers Care Rail Car Loader Name Role Phone Marlin Contreras MD Primary Care Provider [phone] Bettie Cabezas MD Unavailable [phone] Encounter Details Date Type Department Care Team (Late st Contact Info) Description 02/03/2023 3:00 PM MANAGER MANAGING Telemedicine [facility]- Psychiatry Clinic [address] [facility] [address] [place] [address] Bipolar affective disorder, remission status [...] often do you attend chur ch or taoist services? Never 02/23/2022 Do you belong to any clubs o r organizations such as temple groups, unions, fraternal or athletic groups, or [...] staff should administer the PHQ-9) 1 02/23/2022 [facility] Questionnaire Answer Date Recorded [...] place to sleep or slept in a longterm (including now)? No 02/23/2022 Personal Safety Answer Date Recorded Have you ever been in or are you currently in a harmful physical or emotional relationship or is someone making you feel afraid or unsafe? Denies 08/24/2022 Comments No Sex and Gender Information Value Date Recorded Sex Assigned at Not on file Legal Sex Female 12:29 PM MANAGER MANAGING Gender Identity Not on file Sexual Orientation Not on file documented as of this encounter Ordered Prescriptions Prescription Sig Dispense Quantity Refills Last Filled Start Date End Date lamoTRIgine XR (LaMICtal XR) 200 mg tablet extended release 24hr Take 1 tablet (200 mg total) by mouth daily 30 tablet 3 02/03/2023 03/08/2023 documented in this encounter Progress Notes * Bettie Traore MD - 02/03/2023 3:00 PM CST Patient ID: Stephanie Coates is a 22 y.o. female with a date of of 2000. She is presenting to the [facility] Psychiatry [facility] for a follow-up appointment. She was last seen on 01/18/2023. This was a telemedicine visit with Stephanie Coates alone which took place via real-time video connection. During the visit, I was located at home and the patient was located at home in the [facility]. The patient visit started at 3:00pm and ended at 3:12pm. I have explained the option of participating in a telemedicine visit to the patient. After being given an opportunity to ask questions about and discuss this type of visit, the patient verbally consented to proceeding with the telemedicine visit. The patient understands that this service replaces an office visit and they may be billed and/or responsible for any applicable copayments. Chief Complaint I'm good Sources of Information: Patient, who seems reliable. Chart, which is presumed to be reliable. HPI: Patient saw her tank refinisher the day after she was seen by this provider. They diagnosed the skin lesions as psoriasis that had spread to her trunk and extremities and suspected that the lesions hadstarted with the lithium and worsened with her starting Accutane. The Accutane was stopped and she is starting on a different injectable medication once it's approved by insurance. Since she stopped the Accutane she has had improvement in her psoriasis, but continues to have lesions on her head/scalp. Her mood has been good, she feels its improved on the Lamictal. Still sleeping at night. No depressive or manic symptoms that she is experiencing. No reported change in substance use, still using cannabis mostly at night. Since her last visit patient has had spreading of her rash to her arms and legs. Her tank refinisher was contacted and did not think the rash was due to Lamictal. There is no itching, burning, or fever. She will see her tank refinisher in person tomorrow. Mood has been good, no depressive symptoms or SI. No manic symptoms including decreased need for sleep, grandiosity or impulsivity. Sleeping 8-10 hours per night. Anxiety improved on Hydroxyzine. Still smoking cannabis at night for sleep, no other substance use. Getting cannabis from dispensary. She isworking on applying to job, working with her therapist for this. I have reviewed Family History, Social History, [...] 80 tablet 2 lamoTRIgine XR (LaMICtal XR) 200 mg tablet [...] Sensorium: A&Ox4 Laboratory Data: Last labs reviewed 07/07 0.7 08/23 0.4 Assessment: Diagnoses and all orders for this visit: Bipolar affective disorder, remission status unspecified (HCC) (Primary) Other orders - lamoTRIgine XR (LaMICtal XR) 200 mg tablet extended release 24hr; Take 1 tablet (200 mg total) bymouth daily Ms. oCates is a 21 year old female with history of bipolar affective disorder who presents for follow up. No change in diagnostic formulation presently. Patient continues to have improvement in mood symptoms on current regimen, though due to side effects are cross titrating lithium to Lamictal. She has had psoriasis lesions and weight gain on lithiumthat are intolerable. She had worsening of psoriasis on Accutane which was stopped, no concern for h ypersensitivity reaction to Lamictal from Dermatology. Will increase to 200 of Lamictal today and then decrease lithium later this week. Plan to have close follow up to assess for mood destabilization as titrate down on Li. Patient knows to discontinue if worsening of rash or other symptoms and to reach out to provider. Hydroxyzine and therapy to address ongoing anxiety. Can consider interventional psychiatry consult in the future if patient has worsening mood symptoms. Also consider medications for metabolic side effects, patient has had 16lb weight gain and while patient has not been interested in metformin d/t side effects will plan to discuss Ozempic once medication list is more manageable after stopping [place]. Plan: 1. Pharmacotherapy: -continue Latuda 80mg nightly (with >350 calorie) -start down titration of lithium 900mg nightly to 450mg later this week -continue Wellbutrin XL 300mg daily -increase Lamictal from 100mg to 200mg daily -continue PRN Hydroxyzine 75mg qhs PRN and 25mg BID PRN Discussed risks, benefits, side effects, and alternatives to treatment plan with patient providing informed consent 2. Psychotherapy: - I provided supportive and motivational psychotherapy focusing on behavioral activation and continued compliance with medication throughout the duration of the interview -continue weekly DBT therapy 3. Medical: - Follow up with dermatology regarding rash. Has IUD for control 4. Labs: - Psoriasis, plan to follow w/ derm. 5. Psychosocial: - denies acute needs 6. [...] 8. Follow up: Return to clinic in 2-4 weeks Appointment information: Start: 3:00pm Stop: 3:12 pm Total time: 12 minutes, I also spent 10 minutes reviewing medical records for this encounter. Bettie Traore MD Home Care Rn, PGY-4 GER MANAGING GER MANAGING GER MANAGING documented in this encounter Plan of Treatment Not on file documented as of this encounter Visit Diagnoses Diagnosis Bipolar affective disorder, remission status unspecified (HCC)- Primary documented in this encounter Discontinued Medications Medication Sig Discontinue Reason Start Date End Da te lamoTRIgine (LaMICtal) 100 mg tablet Take 1 tablet (100 mg total) by mouth daily 01/21/2023 02/03/2023 documented as of this encounter Care Teams Rail Car Loader Relationship Specialty Start Date End Date Marlin Contreras MD PCP - General 04/07/17 10/09/23 Bettie Cabezas MD [address] [place] [address] Resident Psychiatry 03/23/22 09/23/23 documented as of this encounter
--- OUTSIDE RECORDS SUMMARY | 2024-03-25 18:41 | XMS_ITS | Encounter Summary ---
Author Organization [facility] Healthcare Address [address] [place] [address] Care Team Providers Care Religion Professor Name Role Phone Marlin Contreras MD Primary Care Provider [phone] Bettie Cabezas MD Unavailable [phone] Encounter Details Date Type Department Care Team (Late st Contact Info) Description 06/21/2023 2:00 PM CDT Telemedicine [facility]- Psychiatry Clinic [address] [facility] [address] [place] [address] Bipolar affective disorder, remission status [...] often do you attend chur ch or christianity services? Never 02/23/2022 Do you belong to any clubs o r organizations such as congregation groups, unions, fraternal or athletic groups, or [...] staff should administer the PHQ-9) 1 02/23/2022 [facility] of Occupat ional [facility] - Occupational Stress Questionnaire Answer Date Recorded [...] on file Legal Sex Female 12:29 PM SEXOLOGIST Gender Identity Not on file Sexual Orientation Not on file documented as of this encounter Progress Notes * Bettie Cabezas MD - 06/21/2023 2:00 PM CDT Patient ID: Stephanie Coates is a 23 y.o. female with a date of of 2000. She is presenting [facility] for a follow-up appointment. She was last seen on 05/17/2023. This was a telemedicine visit with Stephanie Coates alone which took place via real-time video connection. During the visit, I was located in the office and the patient was located at home in the state [facility]. The patient visit started at 1:58 and ended at 2:08. My total encounter time on 06/21/2023 was 20 minutes which was spent in the activities [...] responsible for any applicable copayments. Chief Complaint I've been good Sources of Information: Patient, who seems reliable. Chart, which is presumed to be reliable. HPI: Patient reports things are going overall well. She continues to work at a [employer] which is giving her better structure during the day and allowing her to be more tired at night and sleep better. Reported anxiety has been less since she started working and getting used to her new routine. No depressive or manic symptoms reported. Mood has been good, no SI/HI. She has been walking and moving more at her job, would like to continue to increase her fitness level. She denied side effects of medications. Is taking her Latuda with a meal, sometimes in the morning when she is working in the evening and not eating then. No reported changes in substance use. I have reviewed Family History, Social History, and Medical History as documented in the electronicrecords Allergies: Sulfa (sulfonamide antibiotics) and Sulfamethoxazole-trimethoprim Medications: Current Outpatient Medications Medication Sig Dispense Refill buPROPion XL (Wellbutrin XL) 300 mg 24 hr tablet Take 1 tablet (300 mg total) by mouth every morning 90 tablet 1 lamoTRIgine XR (LaMICtal XR) 300 mg tablet extended release 24hr Take 1 tablet (300 mg total) by mouth daily 90 tablet 1 lurasidone (LATUDA) 80 mg tablet [...] no vitals taken for this visit. Weight not taken at this visit. Weight previously 166 (was 150 fall of 2021) Physical Exam: Unable to assess d/t nature of visit Mental Status Exam: General Appearance and Behavior: appears stated age, appropriately groomed, good eye contact, psychomotor neutral, cooperative, pleasant Speech: normal tone and amount, regular rate, rhythm, volume, latency. Flow of Thought: logical and sequential Content of Thought: no evidence of SI/HI/AVH. No e/o paranoia or delusions Mood: its good Affect: euthymic, appropriately reactive, mood congruent [...] in diagnostic formulation presently. Patient continues to progress on current medication regimen. Anxiety symptoms continue to improve with more structured schedule, a job, and consistent sleeping schedule. Tolerating medications well without side effects. No current indication for medication changes. Patient knows to reach out if shehas emergence of hypomanic/manic symptoms. If not controlled on Lamictal can consider Depakote (will have to discuss control) or Trileptal. Continue with therapy. Zepbound was not approved withpatient's insurance will continue to monitor weight over time with medication changes the last several months and lifestyle changes. Plan: 1. Pharmacotherapy: -continue Latuda 80mg nightly [...] -continue weekly DBT therapy 3. Medical: - No active medical issues, follows with dermatology 4. Labs: - no current indication for repeat labs 5. Psychosocial: - denies acute needs 6. [...] 8. Follow up: Return to clinic in 4-6 weeks Appointment information: Start: 1:58pm Stop: 2:08 pm Total time: 10 minutes, I also spent 10 minutes reviewing medical records for this encounter. Bettie Cabezas MD Azure Architect, PGY-4 documented in this encounter Plan of Treatment Not on file documented as of this encounter Visit Diagnoses Diagnosis Bipolar affective disorder, remission status unspecified (HCC)- Primary documented in this encounter Care Teams Religion Professor Relationship Specialty Start Date End Date Marlin Contreras MD PCP - General 04/07/17 10/09/23 Bettie Cabezas MD [address] [place] [address] Resident Psychiatry 03/23/22 09/23/23 documented as of this encounter
--- OUTSIDE RECORDS SUMMARY | 2024-03-25 18:41 | XMS_ITS | Encounter Summary ---
Author Organization [facility] Healthcare Address [address] [place] [address] Care Team Providers Care Refinery Operator Coking Name Role Phone Cuca Dutton NP Primary Care Provider [phone] Clarice Perkins MD Unavailable [phone] Reason for Visit * Reason Onset Date Comments Appointment Reminder Call 02/03/2024 Encounter Details Date Type Department Care Team (Late st Contact Info) Description 02/03/[address] [facility]- Psychiatry Clinic [address] [facility] [address] [place] [address] Clarice Perkins MD [address] [facility] [id number] [place] [address] Appointment Reminder Call Social History Tobacco Use Types Packs/Day Years Used Date Smoking Tobacco: Former Vaping 0 03/28/2017 - 03/23/2022 Humiliation, Afraid, Rape, and Kick questionnair [...] often do you attend chur ch or denominational services? Never 02/23/2022 Do you belong to any clubs o r organizations such as hinduism groups, unions, fraternal or athletic groups, or [...] staff should administer the PHQ-9) 1 02/23/2022 [facility] [place] of Occupat ional Health - Occupational Stress [...] to sleep or slept in a senior care (including now)? No 02/23/2022 Personal Safety Answer Date Recorded Have you ever been in or are you currently in a harmful physical or emotional relationship or is someone making you feel afraid or unsafe? Denies 08/24/2022 Comments No Sex and Gender Information Value Date Recorded Sex Assigned at Not on file Legal Sex Female 12:29 PM INFORMATION WRITER Gender Identity Not on file Sexual Orientation Not on file documented as of this encounter Miscellaneous Notes * Telephone Encounter - Liberty Bustamante - 02/03/2024 8:46 AM CST Reminder call for next day visit. Confirmed _X__ Unconfirmed ____ Rescheduled date LIBERTY RMATION WRITER documented in this encounter Plan of Treatment Not on file documented as of this encounter Visit Diagnoses Not on filedocumented in this encounter Care Teams Refinery Operator Coking Relationship Specialty Start Date End Date Cuca Dutton NP PCP - General Nurse Practitioner 10/10/23 Clarice Perkins MD [address] [facility] [id number] [place] [address] Resident Psychiatry 10/10/23 09/21/24 documented as of this encounter
--- OUTSIDE RECORDS SUMMARY | 2024-03-25 18:41 | XMS_ITS | Encounter Summary ---
Author Organization [facility] Healthcare Address [address] [place] [address] Care Team Providers Care Reinforcing Steel Erector Name Role Phone Marlin Contreras MD Primary Care Provider [phone] Bettie Cabezas MD Unavailable [phone] Reason for Visit * Reason Onset Date Comments Med Management 03/15/2023 Encounter Details Date Type Department Care Team (Late st Contact Info) Description 03/15/2023 Telephone [facility]- Psychiatry Clinic [address] [facility] [address] [place] [address] [facility] [address] [place] [address] Med Management Social History Tobacco Use Types Packs/Day Years [...] How often do you attend chur or rastafari services? Never 02/23/2022 Do you belong to any clubs o r organizations such as hindu groups, unions, fraternal or athletic groups, or [...] staff should administer the PHQ-9) 1 02/23/2022 [facility] of Occupat ional Health - Occupational Stress [...] place to sleep or slept in a usp (including now)? No 02/23/2022 Personal Safety Answer Date Recorded Have you ever been in or are you currently in a harmful physical or emotional relationship or is someone making you feel afraid or unsafe? Denies 08/24/2022 Comments No Sex and Gender Information Value Date Recorded Sex Assigned at Not on file Legal Sex Female 12:29 PM SENIOR SQL DEVELOPER Gender Identity Not on file Sexual Orientation Not on file documented as of this encounter Miscellaneous Notes * Telephone Encounter - Donna Martinez - 03/15/2023 9:[address] Traore, Patient calls to ask about medications being discussed via [email or web address]. Wants you to look at most recent message. Donna [phone] OR SQL DEVELOPER documented in this encounter Plan of Treatment Not on file documented as of this encounter Visit Diagnoses Not on filedocumented in this encounter Care Teams Reinforcing Steel Erector Relationship Specialty Start Date End Date Marlin Contreras MD PCP - General 04/07/17 10/09/23 Bettie Cabezas MD [address] [place] [address] Resident Psychiatry 03/23/22 09/23/23 documented as of this encounter
--- OUTSIDE RECORDS SUMMARY | 2024-03-25 18:41 | XMS_ITS | Encounter Summary ---
Author Organization [facility] Healthcare Address [address] [place] [address] Care Team Providers Care Email Engineer Name Role Phone Marlin Contreras MD Primary Care Provider [phone] Bettie Cabezas MD Unavailable [phone] Reason for Visit * Reason Onset Date Comments NEED AN APPOINTMENT 01/19/2023 Encounter Details Date Type Department Care Team (Late st Contact Info) Description 01/19/2023 Telephone [facility]- Psychiatry Clinic [address] [facility] [address] [place] [address] Bettie Cabezas MD [address] [place] [address] NEED AN APPOINTMENT Social History Tobacco Use Types Packs/Day Years [...] often do you attend chur ch or zoroastrian services? Never 02/23/2022 Do you belong to any clubs o r organizations such as alevism groups, unions, fraternal or athletic groups, or [...] staff should administer the PHQ-9) 1 02/23/2022 [facility] [place] of Occupat ional Health - Occupational Stress [...] on file Legal Sex Female 12:29 PM HOUSE MOVER Gender Identity Not on file Sexual Orientation Not on file documented as of this encounter Miscellaneous Notes * Telephone Encounter - Riana Guidry - 01/19/2023 1:34 PM CDT PER AVS: Will contact patient to schedule follow up documented in this encounter Plan of Treatment Not on file documented as of this encounter Visit Diagnoses Not on filedocumented in this encounter Care Teams Email Engineer Relationship Specialty Start Date End Date Marlin Contreras MD PCP - General 04/07/17 10/09/23 Bettie Cabezas MD [address] [place] [address] Resident Psychiatry 03/23/22 09/23/23 documented as of this encounter
--- OUTSIDE RECORDS SUMMARY | 2024-03-25 18:41 | XMS_ITS | Encounter Summary ---
Author Organization [facility] Healthcare Address [address] [place] [address] Care Team Providers Care Plate Developer Name Role Phone Marlin Contreras MD Primary Care Provider [phone] Bettie Cabezas MD Unavailable [phone] Reason for Visit * Reason Onset Date Comments Follow-up 07/29/2023 Encounter Details Date Type Department Care Team (Late st Contact Info) Description 07/29/2023 Telephone [facility]- Psychiatry Clinic [address] [facility] [address] [place] [address] Bettie Cabezas MD [facility] [address] [place] [address] Follow-up Social History Tobacco Use Types Packs/Day [...] often do you attend chur ch or episcopalian services? Never 02/23/2022 Do you belong to any clubs o r organizations such as buddhism groups, unions, fraternal or athletic groups, or [...] staff should administer the PHQ-9) 1 02/23/2022 [facility] of Occupat ional Health - Occupational Stress [...] place to sleep or slept in a m[facility]p (including now)? No 02/23/2022 Personal Safety Answer Date Recorded Have you ever been in or are you currently in a harmful physical or emotional relationship or is someone making you feel afraid or unsafe? Denies 08/24/2022 Comments No Sex and Gender Information Value Date Recorded Sex Assigned at Not on file Legal Sex Female 12:29 PM MISSILE MECHANIC Gender Identity Not on file Sexual Orientation Not on file documented as of this encounter Miscellaneous Notes * Telephone Encounter - Sugar Morgan - 07/29/2023 9:50 AM CDT Patient called to speak with provider. Patient stated at her weightloss appointment, wanted to see if it was okay to add Naltrexone to wellbutron. Sugar documented in this encounter Plan of Treatment Not on file documented as of this encounter Visit Diagnoses Not on filedocumented in this encounter Care Teams Plate Developer Relationship Specialty Start Date End Date Marlin Contreras MD PCP - General 04/07/17 10/09/23 Bettie Cabezas MD [address] [place] [address] Resident Psychiatry 03/23/22 09/23/23 documented as of this encounter
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
--- OUTSIDE RECORDS SUMMARY | 2024-03-25 18:41 | XMS_ITS | Encounter Summary ---
Author Organization [facility] Healthcare Address [address] [place] [address] Care Team Providers Care Physical Director Name Role Phone Marlin Contreras MD Primary Care Provider [phone] Bettie Cabezas MD Unavailable [phone] Encounter Details Date Type Department Care Team (Late st Contact Info) Description 03/08/2023 2:30 PM OIL BOILER Telemedicine [facility]ry [facility] [address] [facility] [address] [place] [address] Bipolar affective disorder, remission status [...] often do you attend chur ch or hoahaoism services? Never 02/23/2022 Do you belong to any clubs o r organizations such as scientologist groups, unions, fraternal or athletic groups, or [...] staff should administer the PHQ-9) 1 02/23/2022 [facility] Questionnaire Answer Date [...] place to sleep or slept in a correction (including now)? No 02/23/2022 Personal Safety Answer Date Recorded Have you ever been in or are you currently in a harmful physical or emotional relationship or is someone making you feel afraid or unsafe? 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 female with a date of of 2000. She is presenting to the [facility] Psychiatry Clinic for a follow-up appointment. She was last seen on 02/22/2023. This was a telemedicine visit with Stephanie Coates alone which took place via real-time video connection. During the visit, I was located at home and the patient was located at home in the [facility]. The patient visit started at 2:30pm and ended at 2:40pm. I have explained the option of participating in a telemedicine visit to the patient. After being given an opportunity to ask questions about and discuss this type of visit, the patient verbally consented to proceeding with the telemedicine visit. The patient understands that this service replaces an office visit and they may be billed and/or responsible for any applicable copayments. Chief Complaint I'm still doing well off the lithium... Sources of Information: Patient, who seems reliable. Chart, which is presumed to be reliable. HPI: Since her last visit patient went down to 450mg of lithium. She hasn't noticed a change in her moodor sleep. Is using over the counter melatonin. No depressive symptoms, no SI/HI. She is actually enjoying the holiday season this year. She still has psoriasis on her scalp and body, she is getting her next Tremfya injection this week. Denied side effects of lithium. No reported substance use. No depressive or manic symptoms currently, she's feeling like her old self. Tolerating well without sideeffects. Is anxious to stop the lithium to try to control her skin side effects. I have reviewed Family History, [...] No change in diagnostic formulation presently. Patient has not had reemergence of mood symptoms with decreasing lithium. She is tolerating Lamictal well without side effects. Will stop lithium and continue to closely monitor for mood symptoms. Also discussed with patient again risks of Wellbutrin and consideration of stopping over the next several months, she understands and would like to continue for now (also seems to be addressing ADHD symptoms so will have to reassess if benefit outweight risk in coming months). Patient knows to reach out if she has emergence of hypomanic/manic symptoms. If not controlled on Lamictal can consider Depakote (will have to discuss control) or Trileptal. She is still taking hydroxyzine and doing therapy to address ongoing anxiety. Also consider medications for metabolic side effects, patient has had 16lb weight gain and while patient has not been interested in metformin d/t side effects will plan to discuss Ozempic once medication list is more manageable after stopping Drayton and watch to monitor if patient has weight loss with stopping Drayton. Plan: 1. Pharmacotherapy: -continue Latuda 80mg nightly (with >350 calorie) -discontinue lithium 450mg nightly -continue Wellbutrin XL 300mg daily [...] clinic in 2 weeks Appointment information: Start: 2:00pm Stop: 2:10 pm Total time: 10 minutes, I also spent 10 minutes reviewing medical records for this encounter. Bettie Cabezas MD Loan Officer Assistant, PGY-4 BOILER documented in this encounter Plan of Treatment Not on file documented as of this encounter Visit Diagnoses Diagnosis Bipolar affective disorder, remission status unspecified (HCC)- Primary documented in this encounter Discontinued Medications Medication Sig Discontinue Reason Start Date End Da te lamoTRIgine XR (LaMICtal XR) 200 mg tablet extended release 24hr Take 1 tablet (200 mg total) by mouth daily 02/03/2023 03/08/2023 lamoTRIgine XR (LaMICtal XR) 100 mg tablet extended release 24hr Take 1 tablet (100 mg total) by mouth daily Take with 1 tablet of 200mg Lamictal for a total dose of 300mg. 02/14/2023 03/08/2023 documented as of this encounter Care Teams Physical Director Relationship Specialty Start Date End Date Marlin Contreras MD PCP - General 04/07/17 10/09/23 Bettie Cabezas MD [address] [place] [address] Resident Psychiatry 03/23/22 09/23/23 documented as of this encounter
--- OUTSIDE RECORDS SUMMARY | 2024-03-25 18:41 | XMS_ITS | Encounter Summary ---
Author Organization [facility] Address [address] [place] [address] Phone Care Team Providers Care Development Manager Name Role Phone Marlin Contreras MD Primary Care Provider [phone] Bettie Cabezas MD Unavailable [phone] Encounter Details Date Type Department Care Team (Late st Contact Info) Description 03/16/2023 Orders Only [facility] Psychiatry [address] [facility] [address] [place] [address] Bettie Cabezas MD [address] [place] [address] Social History Tobacco Use Types Packs/Day Years [...] How often do you attend chur or jehovah's witness services? 

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
--- OUTSIDE RECORDS SUMMARY | 2024-03-25 18:41 | XMS_ITS | Encounter Summary ---
Author Organization [facility] Healthcare Address [address] [place] [address] Care Team Providers Care Civil Engineering Intern Name Role Phone Marlin Contreras MD Primary Care Provider [phone] Bettie Cabezas MD Unavailable [phone] Reason for Visit * Reason Onset Date Comments Follow-up 02/08/2023 Encounter Details Date Type Department Care Team (Late st Contact Info) Description 02/08/2023 Telephone [facility]- Psychiatry Clinic [address] [facility] [address] [place] [address] Bettie Cbaezas MD [facility] [address] [place] [address] Follow-up Social History Tobacco Use [...] often do you attend chur ch or quaker services? Never 02/23/2022 Do you belong to any clubs o r organizations such as tenriism groups, unions, fraternal or athletic groups, or [...] staff should administer the PHQ-9) 1 02/23/2022 [facility] of Occupat ional Health - Occupational Stress [...] place to sleep or slept in a detention (including now)? No 02/23/2022 Personal Safety Answer Date Recorded Have you ever been in or are you currently in a harmful physical or emotional relationship or is someone making you feel afraid or unsafe? Denies 08/24/2022 Comments No Sex and Gender Information Value Date Recorded Sex Assigned at Not on file Legal Sex Female 12:29 PM SUBSCRIPTION CLERK Gender Identity Not on file Sexual Orientation Not on file documented as of this encounter Miscellaneous Notes * Telephone Encounter - Bettie Traore MD - 02/08/2023 4:08 PM SUBSCRIPTION CLERK Spoke with patient. She has had increased mood lability and racing thoughts, no grandiosity/delusions/impulsivity. She didn't sleep for almost a day when she decreased the lithium down to 450mg but then was able to sleep 6-7 hours the last couple of nights. Discussed with her that Lamcital is not at the level it will be at given several more days, will plan to increase the lithium back to 900mg and follow up closely with patient regarding sleep/other manic symptoms. Will plan for a slow down titration of lithium to try to avoid destabilization. CRIPTION CLERK * Telephone Encounter - Riana Guidry - 02/08/2023 3:31 PM CST Patient would like to speak with you. She stated she have been more upset since the medication change. Pleas call. Riana Provider was smart webbed: Please contact Stephanie BARRAGAN 2000. CRIPTION CLERK documented in this encounter Plan of Treatment Not on file documented as of this encounter Visit Diagnoses Not on filedocumented in this encounter Care Teams Civil Engineering Intern Relationship Specialty Start Date End Date Marlin Contreras MD PCP - General 04/07/17 10/09/23 Bettie Cabezas MD [facility] [address] [place] [address] Resident Psychiatry 03/23/22 09/23/23 documented as of this encounter
--- OUTSIDE RECORDS SUMMARY | 2024-03-25 18:41 | XMS_ITS | Encounter Summary ---
Author Organization [facility] Healthcare Address [address] [place] [address] Care Team Providers Care Mortgage Operations Manager Name Role Phone Marlin Contreras MD Primary Care Provider [phone] Bettie Cabzeas MD Unavailable [phone] Encounter Details Date Type Department Care Team (Latest Contact Info) Description 12/20/2022 Orders Only Psychiatry Bettie Cabezas MD [address] [place] [address] Social History Tobacco Use Types Packs/Day Years [...] often do you attend chur ch or mosque services? Never 02/23/2022 Do you belong to any clubs o r organizations such as jain groups, unions, fraternal or athletic groups, or [...] staff should administer the PHQ-9) 1 02/23/2022 [facility] - Occupational Stress Questionnaire Answer [...] on file Legal Sex Female 12:29 PM TAXICAB DISPATCHER Gender Identity Not on file Sexual Orientation Not on file documented as of this encounter Plan of Treatment Not on file documented as of this encounter Visit Diagnoses Not on filedocumented in this encounter Care Teams Mortgage Operations Manager Relationship Specialty Start Date End Date Marlin Contreras MD PCP - General 04/07/17 10/09/23 Bettie Cabezas MD [address] [place] [address] Resident Psychiatry 03/23/22 09/23/23 documented as of this encounter
--- OUTSIDE RECORDS SUMMARY | 2024-03-25 18:41 | XMS_ITS | Encounter Summary ---
Author Organization [facility] Healthcare Address [address] [place] [address] Care Team Providers Care Business Banking Officer Name Role Phone Marlin Contreras MD Primary Care Provider [phone] Bettie Cabezas MD Unavailable [phone] Reason for Visit * Reason Onset Date Comments Med Management 03/24/2023 Encounter Details Date Type Department Care Team (Late st Contact Info) Description 03/24/2023 Telephone [facility]- Psychiatry Clinic [address] [facility] [address] [place] [address] Bettie Cabezas MD [facility] [address] [place] [address] Med Management Social History Tobacco [...] How often do you attend chur or congregation services? Never 02/23/2022 Do you belong to any clubs o r organizations such as mormon groups, unions, fraternal or athletic groups, or [...] 02/23/2022 [facility] of Occupat ional Health [...] on file Legal Sex Female 12:29 PM GRAPHIC ARTS TECHNICIAN Gender Identity Not on file Sexual Orientation Not on file documented as of this encounter Miscellaneous Notes * Telephone Encounter - Sugar Morgan - 03/24/2023 1:57 PM CST Patient called about medication zepbound. Prior auth is needed and was told it was sent to the office. [phone] Provider has been smart webbed please review stephanie coates 2000 encounter sugar HIC ARTS TECHNICIAN documented in this encounter Plan of Treatment Not on file documented as of this encounter Visit Diagnoses Not on filedocumented in this encounter Care Teams Business Banking Officer Relationship Specialty Start Date End Date Marlin Contreras MD PCP - General 04/07/17 10/09/23 Bettie Cabezas MD [facility] [address] [place] [address] Resident Psychiatry 03/23/22 09/23/23 documented as of this encounter
--- OUTSIDE RECORDS SUMMARY | 2024-03-25 18:41 | XMS_ITS | Encounter Summary ---
Author Organization [facility] Healthcare Address [address] [place] [address] Care Team Providers Care Certified Master Safe Technician Name Role Phone Marlin Contreras MD Primary Care Provider [phone] Bettie Cabezas MD Unavailable [phone] Reason for Visit * Reason Onset Date Comments Scheduling Appointments 02/14/2023 Encounter Details Date Type Department Care Team (Late st Contact Info) Description 02/14/2023 Telephone [facility]- Psychiatry Clinic [address] [facility] [address] [place] [address] Bettie Cabezas MD [facility] [address] [place] [address] Scheduling Appointments Social History Tobacco [...] How often do you attend chur or worship services? Never 02/23/2022 Do you belong to any clubs o r organizations such as lutheran groups, unions, fraternal or athletic groups, or [...] staff should administer the PHQ-9) 1 02/23/2022 [facility] of Occupat ional Health - Occupational [...] place to sleep or slept in a assisted (including now)? No 02/23/2022 Personal Safety Answer Date Recorded Have you ever been in or are you currently in a harmful physical or emotional relationship or is someone making you feel afraid or unsafe? Denies 08/24/2022 Comments No Sex and Gender Information Value Date Recorded Sex Assigned at Not on file Legal Sex Female 12:29 PM GUIDE DOG MOBILITY INSTRUCTOR Gender Identity Not on file Sexual Orientation Not on file documented as of this encounter Miscellaneous Notes * Telephone Encounter - Riana Guidry - 02/14/2023 12:58 PM CST This is schedule and link resent. Riana E DOG MOBILITY INSTRUCTOR * Telephone Encounter - Riana Guidry - 02/14/2023 12:58 PM CST ----- Message from Bettie Traore MD sent at 02/14/2023 10:29 AM GUIDE DOG MOBILITY INSTRUCTOR ----- Regarding: Reschedule Hi! Can we reschedule patient's zoom from today to next Tuesday at 3pm over zoom? Thank you! E DOG MOBILITY INSTRUCTOR documented in this encounter Plan of Treatment Not on file documented as of this encounter Visit Diagnoses Not on filedocumented in this encounter Care Teams Certified Master Safe Technician Relationship Specialty Start Date End Date Marlin Contreras MD PCP - General 04/07/17 10/09/23 Bettie Cabezas MD [address] [place] [address] Resident Psychiatry 03/23/22 09/23/23 documented as of this encounter
--- OUTSIDE RECORDS SUMMARY | 2024-03-25 18:41 | XMS_ITS | Encounter Summary ---
Author Organization [facility] Healthcare Address [address] [place] [address] Care Team Providers Care Car Knocker Name Role Phone Marlin Contreras MD Primary Care Provider [phone] Bettie Cabezas MD Unavailable Encounter Details Date Type Department Care Team (Late st Contact Info) Description 01/21/2023 Orders Only [facility]- Psychiatry Clinic [address] [facility] [address] [place] [address] Bettie Cabezas MD [address] [place] [address] Social History Tobacco Use Types [...] How often do you attend chur or confucianist services? 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 Gender Identity Not on file Sexual Orientation Not on file documented as of this encounter Ordered Prescriptions Prescription Sig Dispense Quantity Refills Last Filled Start Date End Date lurasidone (LATUDA) 80 mg tabletIndications: Depression associated with Bipolar Disorder Take 1 tablet (80 mg total) by mouth daily with dinner 90 tablet 1 01/21/2023 4 lithium ER (ESKALITH) 450 mg CR tabletIndications: Bipolar Disorder Take 2 tablets (900 mg total) by mouth nightly 180 tablet 1 01/21/2023 4 lamoTRIgine (LaMICtal) 100 mg tablet Take 1 tablet (100 mg total) by mouth daily 90 tablet 1 01/21/2023 3 buPROPion XL (Wellbutrin XL) 300 mg 24 hr tablet Take 1 tablet (300 mg total) by mouth every morning 90 tablet 1 01/21/2023 4 documented in this encounter Progress Notes * Bettie Traore MD - 01/21/2023 7:20 AM CDT Patient sent message following dermatology appointment that rash is another form of psoriasis likely due to Acutane. Acutane was stopped, they had no concerns about Lamictal or rashes associated withit. Will continue up titration of Lamictal to 100mg for the next week and check in with patient next week. Will continue to closely monitor. Refills were sent for Wellbutrin, Lamictal, Tavares, and Latuda. documented in this encounter Plan of Treatment Not on file documented as of this encounter Visit Diagnoses Not on filedocumented in this encounter Discontinued Medications Medication Sig Discontinue Reason Start Date End Da te lamoTRIgine (LaMICtal) 25 mg tablet Continue taking 1 tablet (25mg daily), can increase to 2 tablets (50mg daily) for the next two weeks if tolerating Other 01/04/2023 01/21/2023 buPROPion XL (Wellbutrin XL) 300 mg 24 hr tablet Take 1 tablet (300 mg total) by mouth every morning Reorder 01/04/2023 01/21/2023 lithium ER (ESKALITH) 450 mg CR tabletIndications:Bipo lar Disorder Take 2 tablets (900 mg total) by mouth nightly Reorder 01/04/2023 01/21/2023 lurasidone (LATUDA) 80 mg tabletIndications:Depr ession associated with Bipolar Disorder Take 1 tablet (80 mg total) by mouth daily with dinner Reorder 01/04/2023 01/21/2023 documented as of this encounter Care Teams Car Knocker Relationship Specialty Start Date End Date Marlin Contreras MD PCP - General 04/07/17 10/09/23 Bettie Cabezas MD [address] [place] [address] Resident Psychiatry 03/23/22 09/23/23 documented as of this encounter
--- OUTSIDE RECORDS SUMMARY | 2024-03-25 18:41 | XMS_ITS | Clinical Summary ---
Author Organization [facility] Address [address] [place] [address] Care Team Providers Care Splitting Machine Feeder Name Role Phone Cuca Dutton NP Primary Care Provider [phone] Clarice Perkins MD Unavailable [phone] Allergies Active Allergy Reactions Criticality Noted Date [...] 02/02/2022 Assessment & Plan (03/23/2022 1:39 PM RESISTOR INSPECTOR): Unremarkable exam this admit. Encouraged routine OP HCM with PCP. Assessment & Plan (02/23/2022 1:23 PM RESISTOR INSPECTOR): No medical complaints or active medical issues identified Remainder of plan per Psychiatry Assessment & Plan (02/02/2022 3:25 PM RESISTOR INSPECTOR): No active complaints or chronic medical conditions identified The rest of the plan is per the psych Service Resolved Problems Problem Noted Date Diagnosed Date Resolved Date Depression, unspecified depression type 08/23/2022 08/25/2022 Suicidal ideation 03/22/2022 03/23/2022 Assessment & Plan (03/23/2022 1:38 PM RESISTOR INSPECTOR): Seen by psychiatry, management as elsewhere. Continue lithium, atarax and aristada for bipolar type 1 per psychiatry. Euthyroid. Monitoring for symptom improvement. Bipolar affective disorder t ype 1, current episode manic, severe, with psychotic symptoms 02/23/2022 12/12/2023 Assessment & Plan (02/23/2022 5:20 PM RESISTOR INSPECTOR): As per Psychiatry Team Cannabis dependence 02/02/2022 12/12/19 24 Assessment & Plan (03/23/2022 1:36 PM RESISTOR INSPECTOR): UDS+cannabinoids this admit. Pt endorses frequent use. Counseled on abstinence, pre-contemplational. Assessment & Plan (02/23/2022 5:20 PM RESISTOR INSPECTOR): As per Psychiatry Team Bipolar affective disorder, current episode manic with psychotic symptoms (CMS/HCC) 02/01/2022 12/12/2023 Assessment & Plan (02/15/2022 10:40 PM RESISTOR INSPECTOR): Stephanie is currently experiencing a manic episode. [...] Aiden Noriega or that her grandfather is Shalomer. She has not endorsed any SI/HI/AH/VH. Based [...] 3 pm; Dad will pick her up Encounters Date Type Department Care Team Description 02/06/2024 9:15 AM RESISTOR INSPECTOR Telemedicine [facility] Psychiatry Clinic [address] [place] [address] [address] [place] [address] Clarice Perkins MD Bipolar I disorder, current or most recent episode depressed, in full remission (HCC) (Primary Dx) 02/03/2024 Telephone [facility] Psychiatry Clinic [address] [place] [address] [address] [place] [phone] Clarice Perkins MD Appointment Reminder Call from Last 3 Months Medical History Medical History Date Comments Bipolar 1 disorder (HCC) Social History Tobacco Use Types Packs/Day Years [...] How often do you attend chur or orthodoxy services? Never 02/23/2022 Do you belong to any clubs o r organizations such as catholic groups, unions, fraternal or athletic groups, or [...] 1 02/23/2022 [facility] of Occupat ional Health - Occupational Stress [...] on file Legal Sex Female 12:29 PM RESISTOR INSPECTOR Gender Identity Not on file Sexual Orientation Not on file Obstetrics History Last Filed Vital Signs Vital Sign Reading [...] 10/10/2023 8:55 AM CDT Plan of Treatment Health Maintenance Due Date Last Done Comments Cervical Cancer Screening 2000 Hepatitis C Screening 2000 Meningococcal B Vaccine (1 o f 2 - Patient Seeks Protection) 2016 Regular Well Visit/Exam 18-64 2018 Depression Screening 02/23/2023 02/23/2022, 02/24/20 22 Influenza Vaccine (#1) 2023 , 02/19/2018, 02/05/2018 DTaP/Tdap/Td Vaccine (8 - Td or Tdap) 05/30/2033 05/31/2023, 10/05/2011, 12/04/2005, Additional history exists Pneumococcal vaccine <65 Completed 002, 2000, 2000, Additional history exists Varicella Vaccines Completed 11/10/2007, 04/10/2001 HPV Vaccines Completed 04/08/2012, 10/26, 10/05/2011 Insurance [facility] EMPL[employer]EE HEALTH PLANS Address[facility] [id number] [place] [id number] [employer] [employer] Address: [facility] [id number] [place] [address] Advance Directives For more information, please contact: [phone] * Full Code (Latest Code Status on File) Date Activated Date Inactivated Comments 08/24/2022 3:20 PM 08/26/2022 8:58 PM * Full Code Date Activated Date Inactivated Comments 03/22/2022 10:52 PM 03/24/2022 4:44 PM * Full Code Date Activated Date Inactivated Comments 02/23/2022 12:57 PM 02/27/2022 5:37 PM * Full Code Date Activated Date Inactivated Comments 02/01/2022 9:30 PM 02/16/2022 7:50 PM Care Teams Splitting Machine Feeder Relationship Specialty Start Date End Date Cuca Dutton NP PCP - General Nurse Practitioner 10/10/23 Clarice Perkins MD [id number] [place] [address] Resident Psychiatry 10/10/23 09/21/24
--- OUTSIDE RECORDS SUMMARY | 2024-03-25 18:41 | XMS_ITS | Encounter Summary ---
Author Organization [facility] Healthcare Address [address] [place] [address] Care Team Providers Care Antique Dealer Name Role Phone Marlin Contreras MD Primary Care Provider [phone] Bettie Cabezas MD Unavailable [phone] Encounter Details Date Type Department Care Team (Late st Contact Info) Description 03/23/2023 1:30 PM TOWN MARSHAL Telemedicine [facility]- Psychiatry Clinic [address] [facility] [address] [facility] [address] [place] [address] Bipolar affective disorder, remission status [...] often do you attend chur ch or yazidism services? Never 02/23/2022 Do you belong to any clubs o r organizations such as presybeterian groups, unions, fraternal or athletic groups, or [...] the PHQ-9) 1 02/23/2022 [facility] Questionnaire Answer Date [...] on file Legal Sex Female 12:29 PM TOWN MARSHAL Gender Identity Not on file Sexual Orientation Not on file documented as of this encounter Ordered Prescriptions Prescription Sig Dispense Quantity Refills Last Filled Start Date End Date tirzepatide, weight loss, (Zepbound) 2.5 mg/0.5 mL pen injector Inject 0.5 mL (2.5 mg total) under the skin every 7 days 2 mL 1 03/23/2023 10/10/2023 tirzepatide, weight loss, 2.5 mg/0.5 mL pen injectorIndication s:Wt Loss Mgmt, Pt with BMI 27-29 & Wt-Related Comorbidity Inject 0.5 mL (2.5 mg total) under the skin every 7 days 2 mL 1 03/23/2023 03/23/2023 documented in this encounter Progress Notes * Bettie Cabezas MD - 03/23/2023 1:30 PM CST Patient ID: Stephanie Coates is a 22 y.o. female with a date of of 2000. She is [facility] for a follow-up appointment. She was last seen on 03/08/2023. This was a telemedicine visit with Stephanie Coates alone which took place via real-time video connection. During the visit, I was located in the office and the patient was located at home in the state of [place]. The patient visit started at 1:28 and ended at 1:38. My total encounter time on 03/23/2023 was 30 minutes which was spent in [...] any applicable copayments. Chief Complaint I'm doing well-actually enjoying the holidays Sources of Information: Patient, who seems reliable. Chart, which is presumed to be reliable. HPI: Since her last visit patient has discontinued lithium. She is also trying to get started on Zepbound for weight loss (has not been filled yet working with insurance). She has been fee her mood is stable and is enjoying the holidays this year. No depressive or manic symptoms. No SI/HI. Sleep has been good. Focus has been improved since stopping lithium. Anxiety has also been improved the last several months, no longer using Atarax. Her psoriasis has significantly improved since stopping the lithium, mostly gone from scalp and no longer on the rest of her body. She is still getting Tremfya injections. No reported substance use outside of a [...] 80 tablet 2 lamoTRIgine XR (LaMICtal XR) 300 mg tablet [...] SI/HI/AVH. No e/o paranoia or delusions Mood: I'm good Affect: euthymic, appropriately reactive, mood congruent Insight: good Judgment: good Sensorium: A&Ox4 Laboratory Data: Last labs reviewed Li 07/07 0.7 08/23 0.4 Assessment: Diagnoses and all orders for this visit: Bipolar affective disorder, remission status unspecified (HCC) (Primary) Other orders - tirzepatide, weight loss, (Zepbound) 2.5 mg/0.5 mL pen injector; Inject 0.5 mL (2.5 mg total) under the skin every 7 days Ms. Coates is a 21 year old female with history of bipolar affective disorder who presents for follow up. No change in diagnostic formulation presently. Patient continues to progress with transition to Lamictal. Tolerating medications well without sideeffects. Continue to have discussions of risks of Wellbutrin and consideration of stopping in the next couple of months. She understands and would like to continue for now (also seems to be addressing ADHD symptoms (though has noted improvement in focus with stopping lithium) so [...] to go to therapy to address anxiety. Attempting to start Zepbound for weight loss, will continue to monitor weight also with stopping lithium. Plan: 1. Pharmacotherapy: -continue Latuda 80mg nightly (with >350 calorie) -continue Wellbutrin XL 300mg daily -continue Lamictal 300mg daily -start Tirzepatide 2.5mg injections q7 days Discussed risks, benefits, side effects, and alternatives [...] clinic in 3-4 weeks Appointment information: Start: 1:28pm Stop: 1:38 pm Total time: 10 minutes, I also spent 10 minutes reviewing medical records for this encounter. Bettie Cabezas MD Customer Support Associate, PGY-4 MARSHAL documented in this encounter Plan of Treatment Not on file documented as of this encounter Visit Diagnoses Diagnosis Bipolar affective disorder, remission status unspecified (HCC)- Primary documented in this encounter Discontinued Medications Medication Sig Discontinue Reason Start Date End Da te tirzepatide (MOUNJARO) 2.5 mg/0.5 mL pen injectorIndications:Weig ht management Inject 0.5 mL (2.5 mg total) under the skin every 7 days 03/23/2023 03/23/2023 tirzepatide, weight loss, 2.5 mg/0.5 mL pen injectorIndications:Wt Loss Mgmt, Pt with BMI 27-29 & Wt-Related Comorbidity Inject 0.5 mL (2.5 mg total) under the skin every 7 days 03/23/2023 03/23/2023 hydrOXYzine (ATARAX) 25 mg tablet Take 2 tablets (50 mg total) by mouth 3 (three) times a day as needed for anxiety Can take up to 75mg (3 tablets) at night as needed for anxiety Other 01/04/2023 03/23/2023 documented as of this encounter Care Teams Antique Dealer Relationship Specialty Start Date End Date Marlin Contreras MD PCP - General 04/07/17 10/09/23 Bettie Cabezas MD [address] [place] [address] Resident Psychiatry 03/23/22 09/23/23 documented as of this encounter
--- OUTSIDE RECORDS SUMMARY | 2024-03-25 18:41 | XMS_ITS | Encounter Summary ---
Author Organization [facility] Healthcare Address [address] [place] [address] Care Team Providers Care Life Educator Name Role Phone Marlin Contreras MD Primary Care Provider [phone] Bettie Cabezas MD Unavailable [phone] Encounter Details Date Type Department Care Team (Latest Contact Info) Description 02/14/2023 Telephone Psychiatry Bettie Cabezas MD [address] [place] [address] Social History Tobacco Use Types Packs/Day Years [...] often do you attend chur ch or baptism services? Never 02/23/2022 Do you belong to [...] staff should administer the PHQ-9) 1 02/23/2022 [facility] - Occupational Stress Questionnaire Answer Date Recorded [...] place to sleep or slept in a jail (including now)? No 02/23/2022 Personal Safety Answer Date Recorded Have you ever been in or are you currently in a harmful physical or emotional relationship or is someone making you feel afraid or unsafe? Denies 08/24/2022 Comments No Sex and Gender Information Value Date Recorded Sex Assigned at Not on file Legal Sex Female 12:29 PM LATHING SUPERVISOR Gender Identity Not on file Sexual Orientation Not on file documented as of this encounter Miscellaneous Notes * Telephone Encounter - Bettie Traore MD - 02/14/2023 10:32 AM LATHING SUPERVISOR Spoke with patient on the phone. Since increasing lithium back to 900 she has had improvement in mood, sleep, and racing thoughts. Denies depressive or manic symptoms currently. Discussed with her leaving the lithium at current level until visit next week. Will then try down titration of lithium, can also consider increase in lamictal if needed. Patient amenable with plan and reports she will reach out if concerns arise sooner. ING SUPERVISOR documented in this encounter Plan of Treatment Not on file documented as of this encounter Visit Diagnoses Not on filedocumented in this encounter Care Teams Life Educator Relationship Specialty Start Date End Date Marlin Contreras MD PCP - General 04/07/17 10/09/23 Bettie Cabezas MD [address] [place] [address] Resident Psychiatry 03/23/22 09/23/23 documented as of this encounter
--- OUTSIDE RECORDS SUMMARY | 2024-03-25 18:41 | XMS_ITS | Encounter Summary ---
Author Organization [facility] Healthcare Address [address] [place] [address] Care Team Providers Care Wire Drawing Machine Tender Name Role Phone Marlin Contreras MD Primary Care Provider [phone] Bettie Cabezas MD Unavailable [phone] Reason for Visit * Reason Onset Date Comments Follow-up 06/21/2023 Encounter Details Date Type Department Care Team (Late st Contact Info) Description 06/17/2023 Telephone [facility]- Psychiatry Clinic [address] [facility] [address] [place] [address] Bettie Cabezas MD [facility] [address] [place] [address] Follow-up Social History Tobacco Use [...] often do you attend chur ch or alevism services? Never 02/23/2022 Do you belong to any clubs o r organizations such as hoahaoism groups, unions, fraternal or athletic groups, or [...] staff should administer the PHQ-9) 1 02/23/2022 [facility] of Occupat ional Health - Occupational Stress [...] on file Legal Sex Female 12:[address] Gender Identity Not on file Sexual Orientation Not on file documented as of this encounter Miscellaneous Notes * Telephone Encounter - Riana Guidry - 06/21/2023 10:58 AM CDT Patient picked up letter today. Riana * Telephone Encounter - Riana Guidry - 06/17/2023 12:55 PM CDT Patient was contacted regarding JOHANNY and fax information. She sated the office doesn't have a fax number. She was informed that she could hop picker letter. Riana * Telephone Encounter - Sukhdev Guidryyl - 06/17/2023 12:55 PM CDT ----- Message from Bettie Cabezas MD sent at 06/14/2023 2:33 PM CDT ----- Letter for patient's rags laborer has been uploaded to her chart with signature. Patient is going to callback with fax number for rags laborer for it to be sent to. She already signed an JOHANNY so once she gets the number would you fax the letter to her rags laborer? Thank you! documented in this encounter Plan of Treatment Not on file documented as of this encounter Visit Diagnoses Not on filedocumented in this encounter Care Teams Wire Drawing Machine Tender Relationship Specialty Start Date End Date Marlin Contreras MD PCP - General 04/07/17 10/09/23 Bettie Cabezas MD [address] [place] [address] Resident Psychiatry 03/23/22 09/23/23 documented as of this encounter
--- OUTSIDE RECORDS SUMMARY | 2024-03-25 18:41 | XMS_ITS | Encounter Summary ---
Author Organization [facility] Healthcare Address [address] [place] [address] Care Team Providers Care Dietitian Name Role Phone Marlin Contreras MD Primary Care Provider [phone] Bettie Cabezas MD Unavailable [phone] Encounter Details Date Type Department Care Team (Late st Contact Info) Description 03/16/2023 Orders Only [facility]- Psychiatry Clinic [address] [facility] [address] [place] [address] Bettie Cabezas MD [address] [place] [address] Social History Tobacco Use Types [...] How often do you attend chur or hinduism services? Never 02/23/2022 Do you belong to any clubs o r organizations such as methodist groups, unions, fraternal or athletic groups, or [...] staff should administer the PHQ-9) 1 02/23/2022 [facility] - Occupational Stress Questionnaire Answer Date [...] on file Legal Sex Female 12:29 PM ROOF CEMENT AND PAINT MAKER HELPER Gender Identity Not on file Sexual Orientation Not on file documented as of this encounter Ordered Prescriptions Prescription Sig Dispense Quantity Refills Last Filled Start Date End Date tirzepatide (MOUNJARO) 2.5 mg/0.5 mL pen injectorIndication s:Weight management Inject 0.5 mL (2.5 mg total) under the skin every 7 days 0.5 mL 3 03/16/2023 03/23/2023 documented in this encounter Progress Notes * Bettie Cabezas MD - 03/16/2023 9:19 AM CST Spoke with patient about benefits/risks/and side effects of Zepbound including C cell thyroid cancer, GI side effects, and injection site/reactions. Patient understood and was amenable to having Ozempic switched to Zepbound due to insurance coverage. CEMENT AND PAINT MAKER HELPER documented in this encounter Plan of Treatment Not on file documented as of this encounter Visit Diagnoses Not on filedocumented in this encounter Care Teams Dietitian Relationship Specialty Start Date End Date Marlin Contreras MD PCP - General 04/07/17 10/09/23 Bettie Cabezas MD [address] [facility] [address] [place] [address] Resident Psychiatry 03/23/22 09/23/23 documented as of this encounter
--- OUTSIDE RECORDS SUMMARY | 2024-03-25 18:41 | XMS_ITS | Encounter Summary ---
Author Organization [facility] Healthcare Address [address] [place] [address] Care Team Providers Care Boat Outfitter Name Role Phone Marlin Contreras MD Primary Care Provider [phone] Bettie Cabezas MD Unavailable Encounter Details Date Type Department Care Team (Late st Contact Info) Description 02/14/2023 Telephone [facility]- Psychiatry Clinic [address] [facility] [address] [place] [address] Bettie Cabezas MD [address] [place], [place] [id number] Social History Tobacco Use Types Packs/Day Years [...] How often do you attend chur or methodist services? Never 02/23/2022 Do you belong to any clubs o r organizations such as baptist groups, unions, fraternal or athletic groups, or [...] on file Legal Sex Female 12:29 PM GRANITE POLISHER Gender Identity Not on file Sexual Orientation Not on file documented as of this encounter Miscellaneous Notes * Telephone Encounter - Bettie Traore MD - 02/14/2023 2:39 PM GRANITE POLISHER Called patient back and will increase Lamictal today, with patient tolerating. Then in the future can consider down titration if indicated but with recent failure with stopping lithium would rather have her on a higher dose of lamictal. Patient was amenable, discussed se/r/b/a and will increase to 300mg daily of Lamictal. ITE POLISHER documented in this encounter Plan of Treatment Not on file documented as of this encounter Visit Diagnoses Not on filedocumented in this encounter Care Teams Boat Outfitter Relationship Specialty Start Date End Date Marlin Contreras MD PCP - General 04/07/17 10/09/23 Bettie Cabezas MD [address] [place] [address] Resident Psychiatry 03/23/22 09/23/23 documented as of this encounter
--- OUTSIDE RECORDS SUMMARY | 2024-03-25 18:41 | XMS_ITS | Encounter Summary ---
Author Organization [facility] Address [address] [place] [address] Phone Care Team Providers Care Institutional Cook Name Role Phone Mariln Contreras MD Primary Care Provider [phone] Bettie Cabezas MD Unavailable [phone] Encounter Details Date Type Department Care Team (Late st Contact Info) Description 03/23/2023 Orders Only [facility] Psychiatry [address] [facility] 2nd [address] [place] [address] Bettie Cabezas MD [address] [place] [address] Social History Tobacco Use Types Packs/Day Years [...] How often do you attend chur or latter day services? Never 02/23/2022 Do you belong to any clubs o r organizations such as mormonism groups, unions, fraternal or athletic groups, or [...] administer the PHQ-9) 1 02/23/2022 [facility] of Occupat ional Health - Occupational [...] place to sleep or slept in a long-term (including now)? No 02/23/2022 Personal Safety Answer Date Recorded Have you ever been in or are you currently in a harmful physical or emotional relationship or is someone making you feel afraid or unsafe? Denies 08/24/2022 Comments No Sex and Gender Information Value Date Recorded Sex Assigned at Not on file Legal Sex Female 12:29 PM SCHOOL HEALTH ASSISTANT Gender Identity Not on file Sexual Orientation [...] Notes * Bettie Cabezas MD - 03/23/2023 9:47 AM CST Resent order for Tirzepatide for 4 pen at a time (only way pharmacy is able to fill). OL HEALTH ASSISTANT documented in this encounter Plan of Treatment Not on file documented as of this encounter Visit Diagnoses Not on filedocumented in this encounter Discontinued Medications Medication Sig Discontinue Reason Start Date End Da te tirzepatide (MOUNJARO) 2.5 mg/0.5 mL pen injectorIndications:Dayana management Inject 0.5 mL (2.5 mg total) under the skin every 7 days 03/16/2023 03/23/2023 documented as of this encounter Care Teams Institutional Cook Relationship Specialty Start Date End Date Marlin Contreras MD PCP - General 04/07/17 10/09/23 Bettie Cabezas MD [address] [place] [address] Resident Psychiatry 03/23/22 09/23/23 documented as of this encounter
--- OUTSIDE RECORDS SUMMARY | 2024-03-25 18:41 | XMS_ITS | Encounter Summary ---
Author Organization [facility] Healthcare Address [address] [place] [address] Care Team Providers Care Staple Cutter Name Role Phone Marlin Contreras MD Primary Care Provider [phone] Bettie Cabezas MD Unavailable [phone] Encounter Details Date Type Department Care Team (Late st Contact Info) Description 07/28/2023 1:00 PM CDT Telemedicine [facility]- Psychiatry Clinic [address] [facility] [address] [address] [place] [address] Bipolar affective disorder, remission status [...] often do you attend chur ch or sabianism services? Never 02/23/2022 Do you belong to any clubs o r organizations such as shinto groups, unions, fraternal or athletic groups, or [...] staff should administer the PHQ-9) 1 02/23/2022 [facility] of Occupat ional [facility] - Occupational Stress Questionnaire Answer Date [...] on file Legal Sex Female 12:29 PM QUALITY INTERN Gender Identity Not on file Sexual Orientation Not on file documented as of this encounter Ordered Prescriptions Prescription Sig Dispense Quantity Refills Last Filled Start Date End Date lurasidone (LATUDA) 80 mg tabletIndications: Depression associated with Bipolar Disorder Take 1 tablet (80 mg total) by mouth daily with dinner 90 tablet 07/28/2023 4 lamoTRIgine XR (LaMICtal XR) 300 mg tablet extended release 24hr Take 1 tablet (300 mg total) by mouth daily 90 tablet 07/28/2023 4 buPROPion XL (Wellbutrin XL) 300 mg 24 hr tablet Take 1 tablet (300 mg total) by mouth every morning 90 tablet 07/28/2023 4 documented in this encounter Progress Notes * Bettie Cabezas MD - 07/28/2023 1:00 PM CDT Patient ID: Stephanie Coates is a 23 y.o. female with a date of of 2000. She is presenting to the [facility] for a follow-up appointment. She was last seen on 06/21/2023. This was a telemedicine visit with Stephanie Coates alone which took place via real-time video connection. During the visit, I was located in the office and the patient was located at home in the state of [place]. The patient visit started at 1:00 and ended at 1:10. My total encounter time on 07/28/2023 was 30 minutes which was spent in [...] reliable. HPI: Patient reports she has been doing well. She continues to work which has given her more defined schedule. There have been some interpersonal stressors that have come up but patient is using DBT skills to cope. Charges were dropped so that has been a huge relief to patient. Anxiety and stress have not impacted mood or sleep, no depressive of manic symptoms no SI/HI. Sleeping nightly 10-7. No substance use outside of occasional glass of wine. No side effects of medications, taking at night which is making her more awake during the day. I have reviewed Family History, Social History, [...] mouth daily with dinner 90 tablet 0 nicotine polacrilex (NICORETTE) 2 mg gum Chew [...] status unspecified (HCC) (Primary) Other orders - buPROPion XL (Wellbutrin XL) 300 mg 24 hr tablet; Take 1 tablet (300 mg total) by mouth every morning - lamoTRIgine XR (LaMICtal XR) 300 mg tablet extended release 24hr; Take 1 tablet (300 mg total) bymouth daily - lurasidone (LATUDA) 80 mg tablet; Take 1 tablet (80 mg total) by mouth daily with dinner Ms. Coates is a 21 year old female with history of bipolar affective disorder who presents for follow up. No change in diagnostic formulation presently. Patient continues to progress on medications and therapy. Anxiety symptoms improved with more structured schedule, a job, and consistent sleeping schedule. Tolerating medications well without side effects. No current indication for medication changes. Patient knows to reach out if she has emergenceof hypomanic/manic symptoms. Note to next provider: Ms Coates is a 23 year old female with diagnosis of bipolar affective disorder, type 1. She has been tried on lithium but not able to tolerate d/t side effects (full body psoriasis and weight gain). She has been on Latuda, Wellbutrin, and Lamictal and has been doing well on these medications for several months. Have discussed with her lack of literature on the benefit of antidepressants and possible consideration of Wellbutrin worsening anxiety, however patient had improvement in mood when starting and she thinks its beneficial and hasn't impacted anxiety and wants to continue on current regimen. She has had weight gain on psychotropics, currently trying to control with lifestyle changes (did try to prescribe Zepbound but insurance wouldn't cover). Plan: 1. Pharmacotherapy: -continue Latuda 80mg nightly (with >350 calorie) -continue Wellbutrin XL 300mg daily -continue Lamictal 300mg daily Discussed risks, benefits, side effects, and alternatives to treatment plan with patient providing informed consent 2. Psychotherapy: - I provided supportive and motivational psychotherapy focusing on behavioral activation and continued compliance with medication throughout the duration of the interview -continue biweekly DBT therapy 3. Medical: - No active [...] 8. Follow up: Return to clinic in September for new intake Appointment information: Start: 1:00pm Stop: 1:10 pm Total time: 10 minutes, I also spent 10 minutes reviewing medical records for this encounter. Bettie Cabezas MD Document Imaging Manager, PGY-4 documented in this encounter Plan of Treatment Not on file documented as of this encounter Visit Diagnoses Diagnosis Bipolar affective disorder, remission status unspecified (HCC)- Primary documented in this encounter Discontinued Medications Medication Sig Discontinue Reason Start Date End Da te buPROPion XL (Wellbutrin XL) 300 mg 24 hr tablet Take 1 tablet (300 mg total) by mouth every morning Reorder 05/17/2023 07/28/2023 lamoTRIgine XR (LaMICtal XR) 300 mg tablet extended release 24hr Take 1 tablet (300 mg total) by mouth daily Reorder 05/17/2023 07/28/2023 lurasidone (LATUDA) 80 mg tabletIndications:Depres mary associated with Bipolar Disorder Take 1 tablet (80 mg total) by mouth daily with dinner Reorder 05/17/2023 07/28/2023 documented as of this encounter Care Teams Staple Cutter Relationship Specialty Start Date End Date Marlin Contreras MD PCP - General 04/07/17 10/09/23 Bettie Cabezas MD [address] [place] [address] Resident Psychiatry 03/23/22 09/23/23 documented as of this encounter
--- OUTSIDE RECORDS SUMMARY | 2024-03-25 18:41 | XMS_ITS | Encounter Summary ---
Author Organization [facility] Healthcare Address [address] [place] [address] Care Team Providers Care Ceramics Machine Operator Name Role Phone Marlin Contreras MD Primary Care Provider [phone] Bettie Cabezas MD Unavailable [phone] Encounter Details Date Type Department Care Team (Late st Contact Info) Description 01/18/2023 2:00 PM CDT Telemedicine [facility]- Psychiatry Clinic [address] [facility] [address] [address] [place] [address] Bipolar affective disorder, remission status [...] often do you attend chur ch or jewish services? Never 02/23/2022 Do you belong to any clubs o r organizations such as worship groups, unions, fraternal or athletic groups, or [...] staff should administer the PHQ-9) 1 02/23/2022 [facility] of Occupat ional [facility] - Occupational Stress Questionnaire Answer Date [...] on file Legal Sex Female 12:29 PM API ARCHITECT Gender Identity Not on file Sexual Orientation Not on file documented as of this encounter Progress Notes * Bettie Traore MD - 01/18/2023 2:00 PM CDT Patient ID: Stephanie Coates is a 22 y.o. female with a date of of 2000. She is presenting to the [facility] Psychiatry Clinic for a follow-up appointment. She was last seen on 01/04/2023. This was a telemedicine visit with Stephanie Coates alone which took place via real-time video connection. During the visit, I was located at home and the patient was located at home in the [place] [facility]. The patient visit started at 2:00pm and ended at 2:15pm. I have explained the option of participating in a telemedicine visit to the patient. After being given an opportunity to ask questions about and discuss this type of visit, the patient verbally consented to proceeding with the telemedicine visit. The patient understands that this service replaces an office visit and they may be billed and/or responsible for any applicable copayments. Chief Complaint I'm pretty good Sources of Information: Patient, who seems reliable. Chart, which is presumed to be reliable. HPI: Since her last visit patient has had spreading of her rash to her arms and legs. Her energy and conservation technician was contacted and did not think the rash was due to Lamictal. There is no itching, burning, or fever. She will see her energy and conservation technician in person tomorrow. Mood has been good, no depressive symptoms or SI. No manic symptoms including decreased need for sleep, grandiosity or impulsivity. Sleeping 8-10 hours per night. Anxiety improved on Hydroxyzine. Still smoking cannabis at night for sleep, no othersubstance use. Getting cannabis from dispensary. She is working on applying to job, working with her [...] needed for anxiety 80 tablet 2 lamoTRIgine (LaMICtal) 25 mg tablet Continue taking 1 tablet (25mg daily), can increase to 2 tablets (50mg daily) for the next two weeks if tolerating 90 tablet 2 lithium ER (ESKALITH) 450 mg [...] and weight gain on lithiumthat are intolerable. We were up titrating Lamictal but with current skin lesions. Left a message for patient that we will plan to hold medication until she sees dermatology tomorrow (though they hadlow suspicion previously that it was from the Lamictal). Patient knows to discontinue if worsening of rash or other symptoms and to reach out to provider. If they don't have concerns will resume slowup titration of Lamictal, otherwise can consider Depakote (will have to discuss control) or Tr ileptal. Hydroxyzine and therapy to address ongoing anxiety. [...] medication list is more manageable after stopping [place]. Plan: 1. Pharmacotherapy: -continue Latuda 80mg nightly (with >350 calorie) -continue lithium 900mg nightly -continue Wellbutrin XL 300mg daily -continue Lamictal 50mg -continue PRN Hydroxyzine 75mg qhs PRN and [...] clinic in 2-4 weeks Appointment information: Start: 2:00pm Stop: 2:15 pm Total time: 15 minutes, I also spent 10 minutes reviewing medical records for this encounter. Bettie Traore MD Mini Bar Attendant, PGY-4 documented in this encounter Plan of Treatment Not on file documented as of this encounter Visit Diagnoses Diagnosis Bipolar affective disorder, remission status unspecified (HCC)- Primary documented in this encounter Care Teams Ceramics Machine Operator Relationship Specialty Start Date End Date Marlin Contreras MD PCP - General 04/07/17 10/09/23 Bettie Cabezas MD [address] [place] [address] Resident Psychiatry 03/23/22 09/23/23 documented as of this encounter
--- OUTSIDE RECORDS SUMMARY | 2024-03-25 18:41 | XMS_ITS | Encounter Summary ---
Author Organization [facility] Healthcare Address [address] [place] [address] Care Team Providers Care Business Support Professional Name Role Phone Marlin Contreras MD Primary Care Provider [phone] Bettie Cabezas MD Unavailable [phone] Encounter Details Date Type Department Care Team (Late st Contact Info) Description 05/17/2023 12:30 PM REGENERATOR OPERATOR Telemedicine [facility] [address] [facility] [address] [place] [address] Bipolar affective disorder, remission status [...] often do you attend chur ch or hindu services? Never 02/23/2022 Do you belong to [...] 1 02/23/2022 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 Gender Identity Not on file Sexual Orientation Not on file documented as of this encounter Ordered Prescriptions Prescription Sig Dispense Quantity Refills Last Filled Start Date End Date lurasidone (LATUDA) 80 mg tabletIndications: Depression associated with Bipolar Disorder Take 1 tablet (80 mg total) by mouth daily with dinner 90 tablet 1 05/17/2023 4 lamoTRIgine XR (LaMICtal XR) 300 mg tablet extended release 24hr Take 1 tablet (300 mg total) by mouth daily 90 tablet 1 05/17/2023 4 buPROPion XL (Wellbutrin XL) 300 mg 24 hr tablet Take 1 tablet (300 mg total) by mouth every morning 90 tablet 1 05/17/2023 4 documented in this encounter Progress Notes * Bettie Cabezas MD - 05/17/2023 12:30 PM CST Patient ID: Stephanie Coates is a 23 y.o. female with a date of of 2000. She is presenting to the [facility] for a follow-up appointment. She was last seen on 04/14/2023. This was a telemedicine visit with Stephanie Coates alone which took place via real-time video connection. During the visit, I was located in the office and the patient was located at home in the state of [place]. The patient visit started at 12:30 and ended at 12:46. My total encounter time on 05/17/2023was 30 minutes which was spent in the activities documented in the note. This includes time spent prior to the visit and after the visit in direct care of the patient. This time does not include timespent in any separately reportable services. I have [...] any applicable copayments. Chief Complaint I've been doing good Sources of Information: Patient, who seems reliable. Chart, which is presumed to be reliable. HPI: Patient reports things have been going well. 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 Less anxious than last visit, busier with work, friends, and walking which has decreased ruminations. No depressive or manic symptoms. No SI/HI. Sleeping well at night, though still wakes up is able to fall back to sleep. Sleep schedule has been normal. No substance use outside an occasional glass of wine. Walking most days, not seeing much weight loss yet. Tolerating medications well without side effects. She has had complete resolution of psoriasis with stopping lithium and accutane. I have reviewed Family History, Social History, [...] 24hr; Take 1 tablet (300 mg total) by mouth daily - lurasidone (LATUDA) 80 mg tablet; Take 1 tablet (80 mg total) by mouth daily with dinner Ms. Coates is a 21 year old female with history of bipolar affective disorder who presents for follow up. No change in diagnostic formulation presently. Patient continues to progress on current medications. Anxiety symptoms improved with more structured schedule, getting a job, and sleeping schedule. Tolerating medications well without side effects. Continue to have discussions of risks of Wellbutrin but currently patient prefers to stay on currentmedications with progress of mood symptoms. No current indication for medication changes. Patient knows to reach out if she has emergence of hypomanic/manic symptoms. If not controlled on Lamictal can consider Depakote (will have to discuss control) or Trileptal. Continue with therapy. Zepbound was not approved with patient's insurance [...] clinic in 3-4 weeks Appointment information: Start: 12:30pm Stop: 12:46 pm Total time: 16 minutes, I also spent 10 minutes reviewing medical records for this encounter. Bettie Cabezas MD Photographic Plate Maker, PGY-4 NERATOR OPERATOR documented in this encounter Plan of Treatment Not on file documented as of this encounter Visit Diagnoses Diagnosis Bipolar affective disorder, remission status unspecified (HCC)- Primary documented in this encounter Discontinued Medications Medication Sig Discontinue Reason Start Date End Da te buPROPion XL (Wellbutrin XL) 300 mg 24 hr tablet Take 1 tablet (300 mg total) by mouth every morning Reorder 01/21/2023 05/17/2023 lurasidone (LATUDA) 80 mg tabletIndications:Depres mary associated with Bipolar Disorder Take 1 tablet (80 mg total) by mouth daily with dinner Reorder 01/21/2023 05/17/2023 lamoTRIgine XR (LaMICtal XR) 300 mg tablet extended release 24hr Take 1 tablet (300 mg total) by mouth daily Reorder 03/08/2023 05/17/2023 documented as of this encounter Care Teams Business Support Professional Relationship Specialty Start Date End Date Marlin Contreras MD PCP - General 04/07/17 10/09/23 Bettie Cabezas MD [address] [place] [address] Resident Psychiatry 03/23/22 09/23/23 documented as of this encounter
--- OUTSIDE RECORDS SUMMARY | 2024-03-25 18:41 | XMS_ITS | Encounter Summary ---
Author Organization [facility] Healthcare Address [address] [place] [address] Care Team Providers Care Vp Corporate Development Name Role Phone Marlin Contreras MD Primary Care Provider [phone] Bettie Cabezas MD Unavailable [phone] Encounter Details Date Type Department Care Team (Late st Contact Info) Description 01/04/2023 2:00 PM CDT Telemedicine [facility] [address] [facility] [address] [facility] [address] [place] [address] Bipolar affective disorder, remission status [...] often do you attend chur ch or faith services? 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 Gender Identity Not on file Sexual Orientation Not on file documented as of this encounter Ordered Prescriptions Prescription Sig Dispense Quantity Refills Last Filled Start Date End Date lamoTRIgine (LaMICtal) 25 mg tablet Continue taking 1 tablet (25mg daily), can increase to 2 tablets (50mg daily) for the next two weeks if tolerating 90 tablet 2 01/04/2023 3 hydrOXYzine (ATARAX) 25 mg tablet Take 2 tablets (50 mg total) by mouth 3 (three) times a day as needed for anxiety Can take up to 75mg (3 tablets) at night as needed for anxiety 80 tablet 2 01/04/2023 3 lamoTRIgine (LaMICtal) 25 mg tablet Take 2 tablets (50mg daily) for the next two weeks, if tolerating increase to 4 tablets (100mg daily) 90 tablet 2 01/04/2023 3 lurasidone (LATUDA) 80 mg tabletIndications: Depression associated with Bipolar Disorder Take 1 tablet (80 mg total) by mouth daily with dinner 90 tablet 1 01/04/2023 3 lithium ER (ESKALITH) 450 mg CR tabletIndications: Bipolar Disorder Take 2 tablets (900 mg total) by mouth nightly 180 tablet 1 01/04/2023 3 buPROPion XL (Wellbutrin XL) 300 mg 24 hr tablet Take 1 tablet (300 mg total) by mouth every morning 90 tablet 1 01/04/2023 3 documented in this encounter Progress Notes * Bettie Traore MD - 01/04/2023 2:00 PM CDT Patient ID: Stephanie Coates is a 22 y.o. female with a date of of 2000. She is presenting to the [facility] for a follow-up appointment. She was last seen on 10/27/2022. This was a telemedicine visit with Stephanie Coates alone which took place via real-time video connection. During the visit, I was located at home and the patient was located at home in the [facility]. The patient visit started at 2:00pm and ended at 2:20pm. I have explained the option of participating [...] any applicable copayments. Chief Complaint I'm good but I've been anxious Sources of Information: Patient, who seems reliable. Chart, which is presumed to be reliable. HPI: Since her last visit patient has had several phone calls with provider and has started Lamictal with plan to discontinue [place] with ongoing skin side effects. Since starting the Lamictal she has noticed hypopigmented spots on her skin that have not progressed over the last 2 weeks. Patient is unsure if they were present before or after starting the Lamictal. There are no red lesions, no itching, or pain, and no fevers over the last several weeks. She also recently started Accutane (though shehas been on this in the past without rashes). Her mood has been good but anxious, worried about numerous things throughout the day but much of her worry is coming from not having a job and applying for jobs. Denied worsening of anxiety after starting Wellbutrin. Discussed breaking tasks down into manageable steps and she plans to apply for 5-10 job positions before our next appointment. No SI or mood symptoms. Sleeping 8 hours a night, no grandiosity, impulsivity or increased goal directed behaviors. Did endorse using cannabis several times but is wanting to minimize use and had good insight to impact on mental health. I have reviewed Family History, Social History, [...] mouth every morning 90 tablet 1 lamoTRIgine (LaMICtal) 25 mg tablet Take 1 tablet (25mg) once daily for 2 weeks, if tolerating increase to 2 tablets (50mg daily) for the next two weeks 30 tablet 2 lithium ER (ESKALITH) 450 [...] SI/HI/AVH. No e/o paranoia or delusions Mood: good-anxious Affect: euthymic, appropriately reactive, mood congruent Insight: [...] lesions and weight gain on lithiumthat are intolerable, switching to Lamictal. She does have hypopigmented lesions on her skin, not clear its related to Lamictal. With patient following with dermatology will plan to have her reach out to them before further up titration of Lamictal. If they don't have concerns will resume slow up titration of Lamictal. Discussed with patient possible increased anxiety on Wellbutrin but patient feels has not worsened with Wellbutrin and Wellbutrin is helping her mood. Discussed importance of therapy and minimizing avoidance with anxiety symptoms over medications. Will also restart Hydroxyzine with patient having significant anxiety and self medicating with cannabis. Can consider interventional psychiatry consultin the future if patient has worsening mood symptoms. Li level a couple of months ago was 0.7, in the hospital on 08/23 was 0.4 but this was longer than 12 hours out, will get repeat level in a coupleof months (patient did not tolerate up titration in the past d/t side effects). Also consider medications for metabolic side effects, patient has had 16lb weight gain and while patient has not been interested in metformin d/t side effects will plan to discuss Ozempic once medication list is more manageable after stopping [place]. Plan: 1. Pharmacotherapy: -continue Latuda 80mg nightly (with >350 calorie) -continue lithium 900mg nightly -continue Wellbutrin XL 300mg daily -continue Lamictal 25mg, once discuss with dermatology will plan to resume up titration to 50mg daily for a couple of weeks before further increase -Start PRN Hydroxyzine 75mg qhs PRN and 25mg BID PRN Discussed risks, benefits, side effects, and alternatives to treatment plan with patient providing informed consent 2. Psychotherapy: - I provided supportive and motivational psychotherapy focusing on behavioral activation and continued compliance with medication throughout the duration of the interview -continue weekly DBT therapy 3. Medical: - No active medical issues at this time 4. Labs: - Psoriasis, plan to follow [...] 2 weeks Appointment information: Start: 2:00pm Stop: 2:20 pm Total time: 20 minutes, I also spent 10 minutes reviewing medical records for this encounter. Bettie Traore MD Preschool Teacher Aide, PGY-4 documented in this encounter Plan of Treatment Not on file documented as of this encounter Visit Diagnoses Diagnosis Bipolar affective disorder, remission status unspecified (HCC)- Primary documented in this encounter Discontinued Medications Medication Sig Discontinue Reason Start Date End Da te buPROPion XL (Wellbutrin XL) 300 mg 24 hr tablet Take 1 tablet (300 mg total) by mouth every morning Reorder 10/27/2022 01/04/2023 lithium ER (ESKALITH) 450 mg CR tabletIndications:Bipo lar Disorder Take 2 tablets (900 mg total) by mouth nightly Reorder 10/27/2022 01/04/2023 lurasidone (LATUDA) 80 mg tabletIndications:Depr ession associated with Bipolar Disorder Take 1 tablet (80 mg total) by mouth daily with dinner Reorder 10/27/2022 01/04/2023 lamoTRIgine (LaMICtal) 25 mg tablet Take 1 tablet (25mg) once daily for 2 weeks, if tolerating increase to 2 tablets (50mg daily) for the next two weeks Reorder 12/20/2022 01/04/2023 lamoTRIgine (LaMICtal) 25 mg tablet Take 2 tablets (50mg daily) for the next two weeks, if tolerating increase to 4 tablets (100mg daily) Reorder 01/04/2023 01/04/2023 documented as of this encounter Care Teams Vp Corporate Development Relationship Specialty Start Date End Date Marlin Contreras MD PCP - General 04/07/17 10/09/23 Bettie Cabezas MD [address] [place] [address] Resident Psychiatry 03/23/22 09/23/23 documented as of this encounter
--- OUTSIDE RECORDS SUMMARY | 2024-03-25 18:41 | XMS_ITS | Encounter Summary ---
Author Organization [facility] Healthcare Address [address] [place] [address] Care Team Providers Care Roll Cutting Operator Name Role Phone Marlin Contreras MD Primary Care Provider [phone] Bettie Cabezas MD Unavailable [phone] Encounter Details Date Type Department Care Team (Late st Contact Info) Description 08/30/2023 Telephone [facility] [address] [facility] [address] [place] [address] Bettie Cabezas MD [address] [place], [place] [id number] Social History Tobacco Use Types Packs/Day Years [...] How often do you attend chur or confucianism services? Never 02/23/2022 Do you belong to any clubs o r organizations such as oriental orthodox groups, unions, fraternal or athletic groups, or [...] staff should administer the PHQ-9) 1 02/23/2022 [facility] - Occupational [...] place to sleep or slept in a chcf (including now)? No 02/23/2022 Personal Safety Answer Date Recorded Have you ever been in or are you currently in a harmful physical or emotional relationship or is someone making you feel afraid or unsafe? 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 Left voicemail that if patient had concerns orquestions to call hotel front desk agent. Also reminded her to talk with her PCP or DRINKING WATER TECHNICIAN if she plans to makechanges to her control since she is taking Lamictal. documented in this encounter Plan of Treatment Not on file documented as of this encounter Visit Diagnoses Not on filedocumented in this encounter Care Teams Roll Cutting Operator Relationship Specialty Start Date End Date Marlin Contreras MD PCP - General 04/07/17 10/09/23 Bettie Cabezas MD [address] [place] [address] Resident Psychiatry 03/23/22 09/23/23 documented as of this encounter
--- OUTSIDE RECORDS SUMMARY | 2024-03-25 18:41 | XMS_ITS | Encounter Summary ---
Author Organization [facility] Healthcare Address [address] [place] [address] Care Team Providers Care Binder And Box Builder Name Role Phone Marlin Contreras MD Primary Care Provider [phone] Bettie Cabezas MD Unavailable [phone] Reason for Visit * Reason Onset Date Comments LETTER REQUEST 06/06/2023 Follow-up 06/08/2023 Encounter Details Date Type Department Care Team (Late st Contact Info) Description 06/06/2023 Telephone [facility] [address] [facility] [address] [place] [address] Bettie Cabezas MD [address] [place] [address] LETTER REQUEST; Follow-up Social History Tobacco Use Types Packs/Day [...] often do you attend chur ch or cheondoism services? 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 Traore This is scanned and is being sent to HIM. The information she is requesting is something they wouldhave to provider. Please call patient and make her aware. Provider was smart webbed: Please review additional response on Stephanie Coates 2000 Riana * Telephone Encounter - Bettie Cabezas MD - 06/07/2023 10:15 AM CDT Spoke with patient regarding letter for bagging salvager. Will send it to his office after she signs JOHANNY. * Telephone Encounter - Sukhdev Guidryyl - 06/06/2023 1:35 PM CDT Patient is requesting a letter to go to her bagging salvager. I explained that she would need to sign a JOHANNY forms. She would either have to come to clinic and sign or we could mail and she return this. She asked that I just have you call. Provider was smart webbed: Please review Stephanie BARRAGAN 2000. Riana documented in this encounter Plan of Treatment Not on file documented as of this encounter Visit Diagnoses Not on filedocumented in this encounter Care Teams Binder And Box Builder Relationship Specialty Start Date End Date Marlin Contreras MD PCP - General 04/07/17 10/09/23 Bettie Cabezas MD [address] [place] [address] Resident Psychiatry 03/23/22 09/23/23 documented as of this encounter
--- OUTSIDE RECORDS SUMMARY | 2024-03-25 18:42 | XMS_ITS | Encounter Summary ---
Author Organization [facility] Healthcare Address [address] [place] [address] Care Team Providers Care General Maintenance Helper Name Role Phone Marlin Contreras MD Primary Care Provider [phone] Bettie Cabezas MD Unavailable [phone] Encounter Details Date Type Department Care Team (Late st Contact Info) Description 07/02/2022 2:45 PM CDT Office Visit [facility]iatry [facility] [address] [facility] [address] [place] [address] Bettie Cabezas MD [address] [facility] [address] [place] [address] Routine adult health maintenance (Primary Dx); Bipolar disorder, current episode depressed, mild or moderate severity, unspecified (HCC) Social History Tobacco Use Types Packs/Day [...] often do you attend chur ch or gnosticist services? Never 02/23/2022 Do you belong to any clubs o r organizations such as judaism groups, unions, fraternal or athletic groups, or [...] food, housing, medical care, and heating? Not hard at all 02/23/2022 PHQ-2 Answer Date Recorded PHQ-2 Total Score (If total score is 3 or more points, staff should administer the PHQ-9) 1 02/23/2022 [facility] of Occupat ional Health - Occupational Stress Questionnaire Answer Date Recorded Do you feel stress - tense, restless, nervous, or anxious, or unable to sleep at night because your mind is troubled all the time - these days? Not at all 02/23/2022 Exercise Vital Sign Answer Date Recorde d On average, how many days pe r week do you engage in moderate to strenuous exercise (like a brisk walk)? 0 days 02/23/2022 On average, how many minutes do you engage in exercise at this level? 0 min 02/23/2022 Hunger Vital Sign Answer Date Recorded Within [...] medical appointments or from getting medications? No 01/27 In the past 12 months, has l ack of transportation kept you from meetings, work, or from getting things needed for daily living? No 02/23/2022 Housing Stability Vital Sign Answer Siddharth e [...] place to sleep or slept in a residential (including now)? 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 Gender Identity Not on file Sexual Orientation Not on file documented as of this encounter Last Filed Vital Signs Vital Sign Reading Time Taken Comments Blood Pressure - - Pulse - - Temperature - - Respiratory Rate - - Oxygen Saturation - - Inhaled Oxygen Concentration - - Weight 64.4 kg (142 lb) 07/02/2022 3:16 PM CDT Height - - Body Mass Index 24.37 04/30/2022 3:22 PM SOCIAL CONTACT WORKER documented in this encounter Ordered Prescriptions Prescription Sig Dispense Quantity Refills Last Filled Start Date End Date atomoxetine (STRATTERA) 40 mg capsuleIndications: Attention-Deficit Hyperactivity Disorder Take 1 tablet (40mg) for 4 days and then increase to 2 tablets (80mg) if tolerating 60 capsule 2 07/02/2022 3 lurasidone (LATUDA) 80 mg tablet Take 1 tablet (80 mg total) by mouth daily 30 tablet 3 07/02/2022 3 documented in this encounter Progress Notes * Bettie Traore MD - 07/02/2022 2:45 PM CDT Patient ID: Stephanie Coates is a 22 y.o. female with a date of of 2000. She is presenting to the [facility] Psychiatry Clinic for a follow-up appointment. She was last seen on 05/19/2022. Chief Complaint Things are way better Sources of Information: Patient, who seems reliable. Chart, which is presumed to be reliable. HPI: Patient reports her mood has been significantly improved and is no longer sleeping during the day. She has increased energy, is applying for jobs, and is spending time with family and friends. No SI.Sleeping 8-10 hours a night and denied racing thoughts or other manic symptoms. She does report herADHD is making it difficult for her to concentrate and finish tasks, previously she was on Vyvanse 30mg daily. She is going to therapy groups twice a week which is helpful. She has only been taking 80mg of Latuda and her nightly Republic. Denied side effects. No reported substance use. I have reviewed Family History, Social History, and Medical History as documented in the electronicrecords Allergies: Sulfa (sulfonamide antibiotics) and Sulfamethoxazole-trimethoprim Medications: Current Outpatient Medications Medication Sig Dispense Refill atomoxetine (STRATTERA) 40 mg capsule Take 1 tablet (40mg) for 4 days and then increase to 2 tablets (80mg) if tolerating 60 capsule 2 hydrOXYzine (ATARAX) 10 mg tablet Take 1 tablet (10 mg total) by mouth every 4 (four) hours as needed for anxiety 30 tablet 1 lithium ER (ESKALITH) 450 mg CR tablet Take 1 tablet (450 mg total) by mouth 2 (two) times a day with meals 60 tablet 2 lurasidone (LATUDA) 80 mg tablet Take 1 tablet (80 mg total) by mouth daily 30 tablet 3 nicotine polacrilex (NICORETTE) 2 mg gum Chew 1 each (2 mg total) as needed for smoking cessation 100 each 0 traZODone (DESYREL) 100 mg tablet Take 1 tablet (100 mg total) by mouth nightly as needed for sleep30 tablet 1 Current Facility-Administered Medications Medication Dose Route Frequency Provider Last Rate Last Admin ARIPiprazole lauroxil (ARISTADA) intramuscular syringe 882 mg 882 mg intramuscular every 4 weeks Bettie Traore MD 882 mg at 04/02/22 1607 ROS: Symptoms endorsed: per HPI Symptoms denied: CP, SOB, GI pain, change in appetite All other systems reviewed are negative There were no vitals taken for this visit. Physical Exam: In no acute distress. Strength grossly 5/5 throughout Mental Status Exam: General Appearance and Behavior: appears stated age, appropriately groomed and dressed, good eye contact, psychomotor neutral Speech: normal tone and amount, regular rate, rhythm, volume, latency. Flow of Thought: logical and sequential Content of Thought: no evidence of SI/HI/AVH. No e/o paranoia or delusions Mood: good Affect: euthymic, appropriately reactive, mood congruent Insight: good Judgment: good Sensorium: A&Ox4 Laboratory Data: Last labs reviewed from 02/01 02/04 and 02/23/22 Ethanol level undetectable, UDS +cannabis, other labs unremarkable 04/07/22 was 1.0 Assessment: Diagnoses and all orders for this visit: Routine adult health maintenance (Primary) - Lipid panel; Future - Hemoglobin A1c; Future Bipolar disorder, current episode depressed, mild or moderate severity, unspecified (HCC) - Republic level; Future Other orders - lurasidone (LATUDA) 80 mg tablet; Take 1 tablet (80 mg total) by mouth daily - atomoxetine (STRATTERA) 40 mg capsule; Take 1 tablet (40mg) for 4 days and then increase to 2 tablets (80mg) if tolerating Ms. Coates is a 21 year old female with history of bipolar affective disorder who presents for follow up. No change in diagnostic formulation presently. Patient is no longer in depressive episode. Currently her ADHD symptoms are the most bothersome. Discussed risks of stimulants, and lesser risk of Wellbutrin and Strattera of flipping patient into eladio. After discussing r/b/se/a patient wanted to try Strattera. Will continue lithium and latuda at current doses. In the future can consider down titration of Latuda. Patient has had mild weight gainof 5 lbs over the last several months, continue monitor. Ordered repeat metabolic labs and lithium level. Continue to monitor metabolic side effects and can consider starting metformin, currently patient would like to minimize medications. Patient self discontinued hydroxyzine. Patient is also in DBT therapy and groups that have been helpful and are ongoing. Encouraged patient to call clinic withany changes or concerns over the coming weeks. Plan: 1. Pharmacotherapy: -continue Latuda 80mg nightly (with >350 calorie) -continue lithium 900mg nightly -discontinue hydroxyzine 50mg BID PRN -start Straterra 40mg daily, if tolerating increase to 80mg after 4-5 days Discussed risks, benefits, side effects, and alternatives to treatment plan with patient providing informed consent 2. Psychotherapy: - I provided supportive and motivational psychotherapy focusing on behavioral activation and continued compliance with medication throughout the duration of the interview -continue weekly DBT therapy 3. Medical: - No active medical issues at this time 4. Labs: - Labs reviewed from 04/07/22 5. Psychosocial: - denies acute needs 6. [...] up: Return to clinic in 4-6 weeks for further evaluation and injection Appointment information: Start: 2:45pm Stop: 3:07pm Total time: 22 minutes, I also spent 10 minutes reviewing medical records for this encounter. Bettie Traore MD Medical Care Evaluation Specialist, PGY-3 documented in this encounter Plan of Treatment Not on file documented as of this encounter Procedures Procedure Name Priority Date/Time Associated Diagnosis Comments HEMOGLOBIN A1C Routine 07/07/2022 8:03 AM CDT Routine adult health maintenance LITHIUM LEVEL Routine 07/07/2022 8:03 AM CDT Bipolar disorder, current episode depressed, mild or moderate severity, unspecified (HCC) LIPID PANEL Routine 07/07/2022 8:03 AM CDT Routine adult health maintenance documented in this encounter Results * Hemoglobin A1c (07/07/2022 8:03 AM CDT) Hgb A1C 4.9 <5.7 % of total Hgb [facility] Comment: For the purpose of screening for the presence of diabetes: <5.7% ? Consistent with the absence of diabetes 5.7-6.4% ?Consistent with increased risk for diabetes ?(prediabetes) > or =6.5% ??Consistent with diabetes This assay result is consistent with a decreased risk of diabetes. Currently, no consensus exists regarding use of hemoglobin A1c for diagnosis of diabetes in children. According to [place] Diabetes Association (ADA) guidelines, hemoglobin A1c <7.0% represents optimal control in non- diabetic patients. Different metrics may apply to specific patient populations. Standards of Medical Care in Diabetes(ADA). ?? Blood 07/07/2022 8:03 AM CDT 07/07/2022 8:05 AM CDT [facility] - 07/08/2022 6:38 AM CDT FASTING:YES FASTING: YES us Bettie Cabezas MD LAB BLOOD ORDERABLES Margie hendrix Result [facility] [id number] [address] [id number] * Lipid panel (07/07/2022 8:03 AM CDT) Cholesterol 161 <200 mg/dL [facility] HDL 76 > OR = 50 mg/dL [facility] Triglycerides 39 <150 mg/dL [facility] LDL 74 mg/dL (calc) [facility] Comment: Reference range: <100 Desirable range <100 mg/dL for primary prevention; ?? <70 mg/dL for patients with CHD or diabetic patients with > or = 2 CHD risk factors. LDL-C is now calculated using the Ynes calculation, which is a validated novel method providing better accuracy than the Friedewald equation in the estimation of LDL-C. Robby RAMOS et al. ANIKET. 2013;310(19): 0648-4500 (http://education.Euroffice/faq/QXX715) Chol/HDL ratio 2.1 <5.0 (calc) [facility] Non-HDL, (LDL+VLDL) 85 <130 mg/dL (calc) [facility] Comment: For patients with diabetes plus 1 major ASCVD risk factor, treating to a non-HDL-C goal of <100 mg/dL (LDL-C of <70 mg/dL) is considered a therapeutic option. Blood 07/07/2022 8:03 AM CDT 07/07/2022 8:05 AM CDT Narrative [facility] - 07/08/2022 6:38 AM CDT FASTING:YES FASTING: YES us Bettie Cabezas MD LAB BLOOD ORDERABLES Margie l Result [facility] [address] [address] [phone] * Republic level (07/07/2022 8:03 AM CDT) LITHIUM 0.7 0.6 - 1.2 mmol/L [facility] Blood 07/07/2022 8:03 AM CDT 07/07/2022 8:05 AM CDT Narrative [facility] - 07/08/2022 6:38 AM CDT FASTING:YES FASTING: YES Bettie Cabezas MD LAB BLOOD ORDERABLES Margie simeon Result [facility] [address] [address] [place] [address] documented in this encounter Visit Diagnoses Diagnosis Routine adult health maintenance- Primary Bipolar disorder, current episode depressed, mild or moderate severity, unspecified (HCC) documented in this encounter Discontinued Medications Medication Sig Discontinue Reason Start Date End Da te lurasidone (LATUDA) 20 mg tablet Take 1 tablet (20 mg total) by mouth daily for 21 days Take with 80mg tablet for total of 100mg daily 05/19/2022 07/02/2022 lurasidone (LATUDA) 80 mg tablet Take 1 tablet (80 mg total) by mouth daily 06/02/2022 07/02/2022 documented as of this encounter Care Teams General Maintenance Helper Relationship Specialty Start Date End Date Marlin Contreras MD PCP - General 04/07/17 10/09/23 Bettie Cabezas MD [address] [place] [address] Resident Psychiatry 03/23/22 09/23/23 documented as of this encounter
--- OUTSIDE RECORDS SUMMARY | 2024-03-25 18:42 | XMS_ITS | Encounter Summary ---
Author Organization [facility] Healthcare Address [address] [place] [address] Care Team Providers Care Tool Salvage Worker Name Role Phone Marlin Contreras MD Primary Care Provider [phone] Bettie Cabezas MD Unavailable [phone] Encounter Details Date Type Department Care Team (Late st Contact Info) Description 09/03/2022 3:15 PM CDT Telemedicine [facility]- Psychiatry Clinic [address] [facility] [address] [place] [address] Bettie Cabezas MD [address] [place] [address] Bipolar disorder, current episode depressed, mild or moderate severity, unspecified (HCC) (Primary Dx) Social History Tobacco [...] often do you attend chur ch or zoroastrianism services? 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 Gender Identity Not on file Sexual Orientation Not on file documented as of this encounter Ordered Prescriptions Prescription Sig Dispense Quantity Refills Last Filled Start Date End Date hydrOXYzine (ATARAX) 10 mg tabletIndications: anxiety Take 1 tablet (10 mg total) by mouth every 4 (four) hours as needed for anxiety 30 tablet 1 09/03/2022 3 buPROPion XL (Wellbutrin XL) 150 mg 24 hr tablet Take 1 tablet (150mg) daily for one week, if tolerating increase to 2 tablets (300mg) daily 55 tablet 09/03/2022 3 documented in this encounter Progress Notes * Bettie Traore MD - 09/03/2022 3:15 PM CDT Patient ID: Stephanie Coates is a 22 y.o. female with a date of of 2000. She is presenting to the [facility] Psychiatry Clinic for a follow-up appointment. She was last seen on 07/02/2022. This was a telemedicine visit with Stephanie Coates alone which took place via zoom. During the visit, I was located at home and the patient was located at home in the state of [place]. The patient visit started at 3:15 and ended at 3:30. My total encounter time on 09/03/2022 was 30 minutes which was spentin the activities documented in the note. This includes time spent prior to the visit and after thevisit in direct care of the patient. This [...] responsible for any applicable copayments. Chief Complaint Things haven't been great Sources of Information: Patient, who seems reliable. Chart, which is presumed to be reliable. HPI: Patient has had increase in depressive symptoms leading to voluntary admission to [facility] from 08/23-08/27/2022. She was started on Prozac 10mg in addition to Latuda 80mg qhs and Li 900mg qhs. She had stopped Strattera after several weeks when she did not notice improvement on it. Her mood has been low, energy and motivation low. Sleep and appetite are okay. She is more isolated and has a hard time getting motivated to see friends or do things during the day. She has not noticed any difference with start Prozac 10mg. No reported side effects of medications. No reported substance use. Discussed ADHD history. No problems academically or with focus until she was 16 and had onset of depression. At which time she was started on Vyvanse, no history of having Harriet done or needing stimulants when she was younger. I have reviewed Family History, Social History, and Medical History as documented in the electronicrecords Allergies: Sulfa (sulfonamide antibiotics) and Sulfamethoxazole-trimethoprim Medications: Current Outpatient Medications Medication Sig Dispense Refill buPROPion XL (Wellbutrin XL) 150 mg 24 hr tablet Take 1 tablet (150mg) daily for one week, if tolerating increase to 2 tablets (300mg) daily 55 tablet 0 hydrOXYzine (ATARAX) 10 mg tablet Take 1 tablet (10 mg total) by mouth every 4 (four) hours as needed for anxiety 30 tablet 1 lithium ER (ESKALITH) 450 mg CR tablet Take 2 tablets (900 mg total) by mouth nightly 60 tablet 2 lurasidone (LATUDA) 80 mg tablet Take 1 tablet (80 mg total) by mouth daily with dinner 30 tablet 1 nicotine polacrilex (NICORETTE) 2 mg [...] visit. Physical Exam: In no acute distress. Mental Status Exam: General Appearance and Behavior: appears stated age, casually groomed and dressed, good eye contact, psychomotor neutral Speech: normal tone and amount, regular rate, rhythm, volume, latency. Flow of Thought: logical and sequential Content of Thought: no evidence of SI/HI/AVH. No e/o paranoia or delusions Mood: okay Affect: mildly restricted, tearful at times, still appropriately reactive, mood congruent Insight: good Judgment: good Sensorium: A&Ox4 Laboratory Data: Last labs reviewed 07/07 0.7 08/23 0.4 Assessment: Diagnoses and all orders for this visit: Bipolar disorder, current episode depressed, mild or moderate severity, unspecified (HCC) (Primary) Other orders - buPROPion XL (Wellbutrin XL) 150 mg 24 hr tablet; Take 1 tablet (150mg) daily for one week, if tolerating increase to 2 tablets (300mg) daily - hydrOXYzine (ATARAX) 10 mg tablet; Take 1 tablet (10 mg total) by mouth every 4 (four) hours as needed for anxiety Ms. Coates is a 21 year old female with history of bipolar affective disorder who presents for follow up. No change in diagnostic formulation presently. Patient has had recurrence of MDE. Discussed with her benefit of switching to Wellbutrin with it being both an antidepressant and possibly able to better target symptoms of ADHD instead of up titrating prozac. Patient amenable with plan. Will start 150mg and up titrate to 300mg after a week if tolerating. We will also have closer follow up appointments. She will continue with group and individualDBT therapy weekly. Patient has had some weight gain over the last several months, continue monitordiscussed metformin but with other medication changes will hold off starting. Li level a month ago was 0.7 in the hospital it was 0.4. Will get repeat level at next visit, though patient had side effects last time dose was increased. Plan: 1. Pharmacotherapy: -continue Latuda 80mg nightly (with >350 calorie) -continue lithium 900mg nightly -discontinue prozac 10mg daily -start Wellbutrin XL 150mg daily and increase to 300mg daily if patient tolerating after 1 week Discussed risks, benefits, side effects, and alternatives to treatment plan with patient providing informed consent 2. Psychotherapy: - I provided supportive and motivational psychotherapy focusing on behavioral activation and continued compliance with medication throughout the duration of the interview -continue weekly DBT therapy 3. Medical: - No active medical issues at this time 4. Labs: - Labs reviewed, will order repeat Li level at next visit 5. Psychosocial: - denies acute needs 6. [...] 8. Follow up: Return to clinic in 2-3 weeks for further evaluation and injection Appointment information: Start: 3:15pm Stop: 3:30pm Total time: 15 minutes, I also spent 10 minutes reviewing medical records for this encounter. Bettie Traore MD Inspector Handbag Frames, PGY-3 documented in this encounter Plan of Treatment Not on file documented as of this encounter Visit Diagnoses Diagnosis Bipolar disorder, current episode depressed, mild or moderate severity, unspecified (HCC)- Primary documented in this encounter Discontinued Medications Medication Sig Discontinue Reason Start Date End Da te hydrOXYzine (ATARAX) 10 mg tabletIndications:anxiet y Take 1 tablet (10 mg total) by mouth every 4 (four) hours as needed for anxiety Other 03/23/2022 09/03/2022 FLUoxetine (PROzac) 10 mg tablet/capsuleIndication s:Depression associated with Bipolar Disorder Take 1 tablet/capsule (10 mg total) by mouth daily Other 08/27/2022 09/03/2022 hydrOXYzine (ATARAX) 10 mg tabletIndications:anxiet y Take 1 tablet (10 mg total) by mouth every 4 (four) hours as needed for anxiety Other 09/03/2022 09/03/2022 documented as of this encounter Care Teams Tool Salvage Worker Relationship Specialty Start Date End Date Marlin Contreras MD PCP - General 04/07/17 10/09/23 Bettie Cabezas MD [address] [place] [address] Resident Psychiatry 03/23/22 09/23/23 documented as of this encounter
--- OUTSIDE RECORDS SUMMARY | 2024-03-25 18:42 | XMS_ITS | Encounter Summary ---
Author Organization [facility] Healthcare Address [address] [place] [address] Care Team Providers Care Circuit Design Engineer Name Role Phone Marlin Contreras MD Primary Care Provider [phone] Bettie Cabezas MD Unavailable [phone] Reason for Visit * Reason Onset Date Comments Appointment Reminder Call 09/21/2022 Encounter Details Date Type Department Care Team (Late st Contact Info) Description 09/21/2022 Telephone [facility]- Psychiatry Clinic [address] [facility] [address] [place] [address] Bettie Cabezas MD [facility] [address] [place] [address] Appointment Reminder Call Social History Tobacco Use [...] often do you attend chur ch or christian services? 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 Left message. Pat documented in this encounter Plan of Treatment Not on file documented as of this encounter Visit Diagnoses Not on filedocumented in this encounter Care Teams Circuit Design Engineer Relationship Specialty Start Date End Date Marlin Contreras MD PCP - General 04/07/17 10/09/23 Bettie Cabezas MD [address] [place] [address] Resident Psychiatry 03/23/22 09/23/23 documented as of this encounter
--- OUTSIDE RECORDS SUMMARY | 2024-03-25 18:42 | XMS_ITS | Encounter Summary ---
Author Organization [facility] Healthcare Address [address] [place] [address] Care Team Providers Care Feather Washer Name Role Phone Marlin Contreras MD Primary Care Provider [phone] Bettie Cabezas MD Unavailable [phone] Reason for Visit * Reason Onset Date Comments labs 03/09/2022 Follow-up 03/23/2022 Encounter Details Date Type Department Care Team (Late st Contact Info) Description 03/09/2022 Telephone [facility]- [facility]iatry [facility] [address] [facility] [address] [facility] [address] [place] [address] Bettie Cabezas MD [address] [place] [address] labs; Follow-up Social History Tobacco Use Types Packs/Day Years Used Date Smoking Tobacco: Unknown Humiliation, Afraid, Rape, and Kick questionnair e [...] How often do you attend chur or anabaptism services? Never 02/23/2022 Do you belong to any clubs o r organizations such as confucianism groups, unions, fraternal or athletic groups, or [...] PHQ-9) 1 02/23/2022 [facility] - [...] in a mcc (including now)? 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 Riana UREMENT MANAGER * Telephone Encounter - Riana Guidry - 03/18/2022 9:57 AM CST Mom would like to speak with you about the labs. She wants to know if any adjustment needs to done for medications. Please call. Riana UREMENT MANAGER * Addendum Note - Bettie Mesa MD - 03/16/2022 1:04 PM CSTAddended by: BETTIE MESA on: 03/16/2022 01:04 PM Modules accepted: Orders UREMENT MANAGER * Telephone Encounter - Bettie Mesa MD - 03/16/2022 1:04 PM PROCUREMENT MANAGER Resent lab order for lithium level to [facility], called and left voicemail for patient. UREMENT MANAGER * Telephone Encounter - Riana Guidry - 03/16/2022 8:43 AM CST Patient and mom went to [facility] for labs this am. Mom said she took off from work to take care of theredraw you requested. She stated their wasn't an order in their system. Please send kenia and call them once this is done. Riana UREMENT MANAGER * Telephone Encounter - Lisa Dubose - 03/09/2022 12:06 PM CST Please loki Stephanie back. She missed your call. Pat UREMENT MANAGER * Telephone Encounter - Bettie Mesa MD - 03/09/2022 11:58 AM PROCUREMENT MANAGER Plan to increase from 900mg daily to 1200mg, with Li trough of 0.4. [place] 300mg tablets sent to pharmacy. Will plan for repeat Li trough level in 5-7 days, Li level order placed and patient was notified about mediation change and repeat lab draw. UREMENT MANAGER * Telephone Encounter - Riana Guidry - 03/09/2022 8:02 AM CST Patient has received labs and she said the levels were low. She would like for you to call to discuss possible medications adjustments. Please call. Riana UREMENT MANAGER documented in this encounter Plan of Treatment Not on file documented as of this encounter Procedures Procedure Name Priority Date/Time Associated Diagnosis Comments LITHIUM LEVEL Routine 03/17/2022 8:05 AM PROCUREMENT MANAGER Bipolar affective disorder, current episode manic with psychotic symptoms (CMS/HCC) (HCC) documented in this encounter Results * (ABNORMAL) [place] level (03/17/2022 8:05 AM PROCUREMENT MANAGER) LITHIUM 0.4(L) 0.6 - 1.2 mmol/L [facility] Blood 03/17/2022 8:05 AM PROCUREMENT MANAGER 03/17/2022 8:05 AM PROCUREMENT MANAGER Bettie Cabezas MD LAB BLOOD ORDERABLES Margie l Result [facility] [address] [place] [address] documented in this encounter Visit Diagnoses Diagnosis Bipolar affective disorder, current episode manic with psychotic symptoms (CMS/HCC) (HCC)- Primary documented in this encounter Care Teams Feather Washer Relationship Specialty Start Date End Date Marlin Contreras MD PCP - General 04/07/17 10/09/23 Bettie Cabezas MD [address] [place] [address] Resident Psychiatry 03/23/22 09/23/23 documented as of this encounter
--- OUTSIDE RECORDS SUMMARY | 2024-03-25 18:42 | XMS_ITS | Encounter Summary ---
Author Organization [facility] Healthcare Address [address] [place] [address] Care Team Providers Care Skating Rink Manager Name Role Phone Marlin Contreras MD Primary Care Provider [phone] Bettie Cabezas MD Unavailable [phone] Encounter Details Date Type Department Care Team (Late st Contact Info) Description 10/27/2022 3:00 PM CDT Office Visit [facility]- Psychiatry Clinic [address] [facility] [address] [place] [address] Bipolar affective disorder, remission status [...] often do you attend chur ch or mandaen services? Never 02/23/2022 Do you belong to any clubs o r organizations such as sikhism groups, unions, fraternal or athletic groups, or [...] should administer the PHQ-9) 1 02/23/2022 [facility] - Occupational Stress Questionnaire Answer Date [...] place to sleep or slept in a intermediate (including now)? No 02/23/2022 Personal Safety Answer Date Recorded Have you ever been in or are you currently in a harmful physical or emotional relationship or is someone making you feel afraid or unsafe? 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 Gender Identity Not on file Sexual Orientation Not on file documented as of this encounter Ordered Prescriptions Prescription Sig Dispense Quantity Refills Last Filled Start Date End Date lurasidone (LATUDA) 80 mg tabletIndications: Depression associated with Bipolar Disorder Take 1 tablet (80 mg total) by mouth daily with dinner 90 tablet 1 10/27/2022 3 lithium ER (ESKALITH) 450 mg CR tabletIndications: Bipolar Disorder Take 2 tablets (900 mg total) by mouth nightly 180 tablet 1 10/27/2022 3 buPROPion XL (Wellbutrin XL) 300 mg 24 hr tablet Take 1 tablet (300 mg total) by mouth every morning 90 tablet 1 10/27/2022 3 documented in this encounter Progress Notes * Bettie Traore MD - 10/27/2022 3:00 PM CDT Patient ID: Stephanie Coates is a 22 y.o. female with a date of of 2000. She is presenting to the [facility] Psych[facility] for a follow-up appointment. She was last seen on 09/03/2022. Chief Complaint I'm doing better Sources of Information: Patient, who seems reliable. Chart, which is presumed to be reliable. HPI: Since her last visit patient has had psoriasis on her scalp, has been going on for several months. Suspected to be associated with lithium. She was started on topical steroids but they have been hardto get on and make the hair oily. She is going to see dermatology later this month. She has not previously had psoriasis in the past. Her mood has been improved, no SI. She is motivated and getting up in the morning. She has been working out, going to therapy, and thinking about what she wants to do for work. She has not had racingthoughts or decreased sleep. She has had more vivid dreams but nothing that is impacting her energyor mood. Occasional alcohol and nicotine use. Overall she feels she is tolerating medications well and she is the best she has been since her manic episode last fall. I have reviewed Family History, Social History, [...] (300 mg total) by mouth every morning 30 tablet 3 lithium ER (ESKALITH) 450 mg CR tablet Take 2 tablets (900 mg total) by mouth nightly 60 tablet 3 lurasidone (LATUDA) 80 mg tablet Take 1 tablet (80 mg total) by mouth daily with dinner 30 tablet 3 nicotine polacrilex (NICORETTE) 2 [...] visit. Weight 166 (previously 150) Physical Exam: In no acute distress. Mental [...] have improvement in mood symptoms on current regimen. She has been getting psoriatic plaques on her scalp (coincides with lithium use and likely 2/2), has an appointment with dermatology. If unable to improve side effects can consider switching to another mood stabilizer, however with significant course hesitant to consider this now with patient being more stable currently. Will plan to hold of on interventional psychiatry consult with patient progressing on current medications, but can consider this in the future if indicated. Li level a couple of months ago [...] side effects will plan to discuss Ozempic with her at next visit. Plan: 1. Pharmacotherapy: -continue Latuda 80mg nightly (with >350 calorie) -continue lithium 900mg nightly -continue Wellbutrin XL 300mg daily Discussed risks, benefits, side effects, [...] 8. Follow up: Return to clinic in 6-7 weeks Appointment information: Start: 2:45pm Stop: 3:05 pm Total time: 20 minutes, I also spent 10 minutes reviewing medical records for this encounter. Bettie Traore MD Registration Coordinator, PGY-3 documented in this encounter Plan of Treatment Not on file documented as of this encounter Visit Diagnoses Diagnosis Bipolar affective disorder, remission status unspecified (HCC)- Primary documented in this encounter Discontinued Medications Medication Sig Discontinue Reason Start Date End Da te buPROPion XL (Wellbutrin XL) 300 mg 24 hr tablet Take 1 tablet (300 mg total) by mouth every morning Reorder 09/24/2022 10/27/2022 lithium ER (ESKALITH) 450 mg CR tabletIndications:Bipola r Disorder Take 2 tablets (900 mg total) by mouth nightly Reorder 09/24/2022 10/27/2022 lurasidone (LATUDA) 80 mg tabletIndications:Depres mary associated with Bipolar Disorder Take 1 tablet (80 mg total) by mouth daily with dinner Reorder 09/29/2022 10/27/2022 documented as of this encounter Care Teams Skating Rink Manager Relationship Specialty Start Date End Date Marlin Contreras MD PCP - General 04/07/17 10/09/23 Bettie Cabezas MD [address] [place] [address] Resident Psychiatry 03/23/22 09/23/23 documented as of this encounter
--- OUTSIDE RECORDS SUMMARY | 2024-03-25 18:42 | XMS_ITS | Encounter Summary ---
Author Organization [facility] Healthcare Address [address] [place] [address] Care Team Providers Care Telecommunications Network Planner Name Role Phone Marlin Contreras MD Primary Care Provider [phone] Bettie Cabezas MD Unavailable [phone] Encounter Details Date Type Department Care Team (Late st Contact Info) Description 04/02/2022 3:45 PM SALES REPRESENTATIVE GROCERIES Office Visit [facility]- Psychiatry Clinic [address] [facility] [address] [place] [address] Bettie Cabezas MD [address] [place] [address] Bipolar affective disorder, remission status unspecified (HCC) [...] often do you attend chur ch or tenriism services? Never 02/23/2022 Do you belong to any clubs o r organizations such as yarsanism groups, unions, fraternal or athletic groups, or [...] staff should administer the PHQ-9) 1 02/23/2022 [facility] of Occupat ional Health - Occupational Stress [...] in a custodial (including now)? No 02/23/2022 Comments Unknown Sex and Gender Information Value Date Recorded Sex Assigned at Not on file Legal Sex Female 12:29 PM SALES REPRESENTATIVE GROCERIES Gender Identity Not on file Sexual Orientation Not on file documented as of this encounter Progress Notes * Bettie Traore MD - 04/02/2022 3:45 PM CST Patient ID: Stephanie Coates is a 21 y.o. female with a date of of 2000. She is presenting to the [facility] Psychiatry Clinic for a follow-up appointment. She was last seen on 03/05/2022. Chief Complaint Its all just been a lot Sources of Information: Patient, who seems reliable. Chart, which is presumed to be reliable. Patient's mother, with patient, reliable HPI: Since her last visit patient was admitted to [facility] voluntarily from 03/22-03/24/22 for depression andSI. Her lithium level in the ED was 1.3 (not a trough level) and patient did report she felt dizzy and light headed at that point. Before admission her lithium had been titrated up to 1200mg daily with her last Li trough of 0.4. During admission her Li was decreased back to 900mg and her Risperdal was increased to 1mg BID. Her last Aristada 882mg injection was on 03/05/22. Patient reports she is not having racing thoughts, is sleeping at night and during the day. Is feeling hopeless and overwhelmed. She has anhedonia, anergia and amotivation. There were a few days she did something but she still didn't get much patria out of it. She had SI before she went to the hospital but she has not had SI since discharge. She feels anxious about resuming activities she used to dobut mostly she's just numb. No side effects of mediations currently, including EPS. I have reviewed Family History, Social History, and Medical History as documented in the electronicrecords Allergies: Sulfa (sulfonamide antibiotics) and Sulfamethoxazole-trimethoprim Medications: Current Outpatient Medications Medication Sig Dispense Refill hydrOXYzine (ATARAX) 10 mg tablet Take 1 tablet (10 mg total) by mouth every 4 (four) hours as needed for anxiety 30 tablet 1 lithium ER (ESKALITH) 450 mg CR tablet Take 1 tablet (450 mg total) by mouth 2 (two) times a day with meals 60 tablet 1 nicotine polacrilex (NICORETTE) 2 mg gum Chew 1 each (2 mg total) as needed for smoking cessation 100 each 0 risperiDONE (RisperDAL) 2 mg tablet Take 1 tablet (2 mg total) by mouth 2 (two) times a day 60 tablet 1 traZODone (DESYREL) 100 mg tablet Take 1 tablet (100 mg total) by mouth nightly as needed for sleep30 tablet 1 Current Facility-Administered Medications Medication Dose Route Frequency Provider Last Rate Last Admin ARIPiprazole lauroxil (ARISTADA) intramuscular syringe 882 mg 882 mg intramuscular every 4 weeks Bettie Traore MD 882 mg at 03/05/22 1312 ROS: Symptoms endorsed: per HPI Symptoms denied: CP, SOB, GI pain, change in appetite All other systems reviewed are negative There were no vitals taken for this visit. Physical Exam: Constitutional: Patient is in no apparent distress. Neuro: No obvious rigidity, tremors, or focal neurological deficits. Grossly intact upon appearanceand interview. Mental Status Exam: General Appearance and Behavior: appears stated age, casually groomed, dressed casually, moderate eye contact, psychomotor neutral, tearful throughout Speech: regular rate, rhythm, volume, latency. Decreased tone and amount Flow of Thought: logical and sequential Content of Thought: denies SI/HI/AVH. No e/o paranoia or delusions Mood: numb Affect: dysthymic, minimally reactive Insight: good Judgment: good Sensorium: A&Ox4 Laboratory Data: Last labs reviewed from 02/01 02/04 and 02/23/22 Ethanol level undetectable, UDS +cannabis, other labs unremarkable Li level 0.3 03/30/21 (24 hour trough) and 1.3 (03/22/22 at around 6-8 hours) Assessment: Diagnoses and all orders for this visit: Bipolar affective disorder, remission status unspecified (HCC) (Primary) Ms. Coates is a 21 year old female with history of bipolar affective disorder who presents for follow up. No change in diagnostic formulation presently. Currently patient is in depressive episode, as outlined above in history. No SI and able to contract for safety. Plan to discontinue Risperdal with current polypharmacy and no suspected benefit for MDE. She is already on Aristada injections and lithium. Will shift taking lithium to night time to get true trough in the morning to get more accurate idea of level (ordered repeat level to be drawn in5-7 days). Discussed with her consideration of adding another medication like Lamictal but she was overwhelmed with current changes and deferred on starting this medication for depression. She also prefers to continue Aristada injections and not switch to oral medication at this point. Also did psychotherapy with patient including behavioral activation and keeping sleep wake cycle and schedule asconsistent as possible. Will plan for close follow up. Patient was amenable with plan. Because patient is young and was just initiated on antipsychotic plan to consider starting Metformin at next visit. eGFR and liver enzymes are wnl, will get Hgb A1c before initiation. Plan: 1. Pharmacotherapy: -continue Aristada 882mg injections -continue lithium 900mg nightly -continue hydroxyzine 50mg BID PRN -discontinue Risperdal 1mg BID -continue trazodone 50mg qhs -obtain Li trough level in 5-7 days Discussed risks, benefits, side effects, and alternatives to treatment plan with patient providing informed consent 2. Psychotherapy: - I provided supportive and motivational psychotherapy focusing on behavioral activation and continued compliance with medication throughout the duration of the interview -she is starting with therapy next week 3. Medical: - No active medical issues at this time 4. Labs: - Labs reviewed from 03/30/22 Li level ordered 5. Psychosocial: - denies acute needs 6. Substance use: - Continue to encourage cessation/abstinence of drugs/alcohol - Provide motivational interviewing and supportive therapy as appropriate 7. Risk Assessment: Patient is a chronically elevated risk given: Risk factors: Risk Factors: chronic psychiatric [...] up: Return to clinic in 2 weeks for further evaluation. Appointment information: Start: 3:44pm Stop: 4:04pm Total time: 20 minutes, I also spent 15 minutes reviewing medical records for this encounter. Bettie Traore MD Electron Beam Welder, PGY-3 S REPRESENTATIVE GROCERIES documented in this encounter Plan of Treatment Not on file documented as of this encounter Procedures Procedure Name Priority Date/Time Associated Diagnosis Comments LITHIUM LEVEL Routine 04/07/2022 8:06 AM SALES REPRESENTATIVE GROCERIES Bipolar affective disorder, remission status unspecified (HCC) documented in this encounter Results * [place] level (04/07/2022 8:06 AM SALES REPRESENTATIVE GROCERIES) LITHIUM 1.0 0.6 - 1.2 mmol/L [facility] Blood 04/07/2022 8:06 AM SALES REPRESENTATIVE GROCERIES 04/07/2022 8:06 AM SALES REPRESENTATIVE GROCERIES Bettie Cabezas MD LAB BLOOD ORDERABLES Margie l Result [facility] [address] [place] [address] documented in this encounter Visit Diagnoses Diagnosis Bipolar affective disorder, remission status unspecified (HCC)- Primary documented in this encounter Care Teams Telecommunications Network Planner Relationship Specialty Start Date End Date Marlin Contreras MD PCP - General 04/07/17 10/09/23 Bettie Cabezas MD [address] [facility] [address] [place] [address] Resident Psychiatry 03/23/22 09/23/23 documented as of this encounter
--- OUTSIDE RECORDS SUMMARY | 2024-03-25 18:42 | XMS_ITS | Encounter Summary ---
Author Organization [facility] Healthcare Address [address] [place] [address] Care Team Providers Care Death Clearance Coordinator Name Role Phone Marlin Contreras MD Primary Care Provider [phone] Bettie Cabezas MD Unavailable [phone] Encounter Details Date Type Department Care Team (Latest Contact Info) Description 08/24/2022 12:41 PM CDT - 08/24/2022 11:59 PM CDT Hospital Encounter [facility] [address] [place] [address] Discharge Disposition: Discharge to home or self care Social History Tobacco Use Types Packs/Day Years [...] often do you attend chur ch or oriental orthodox services? Never 02/23/2022 Do you belong to [...] staff should administer the PHQ-9) 1 02/23/2022 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 Gender Identity Not on file Sexual Orientation Not on file documented as of this encounter Medications at Time of Discharge levonorgestreL (Mirena) IUD 1 each by intrauterine route once 06/04/2022 atomoxetine (STRATTERA) 40 mg capsuleIndications :Attention-Deficit Hyperactivity Disorder Take 1 tablet (40mg) for 4 days and then increase to 2 tablets (80mg) if tolerating 60 capsule 2 07/02/2022 08/27/19 23 FLUoxetine (PROzac) 10 mg tablet/capsuleIndi cations:Depression associated with Bipolar Disorder Take 1 tablet/capsule (10 mg total) by mouth daily 30 tablet/capsul e 1 08/27/2022 09/04/19 23 hydrOXYzine (ATARAX) 10 mg tabletIndications: anxiety Take 1 tablet (10 mg total) by mouth every 4 (four) hours as needed for anxiety 30 tablet 1 03/23/2022 09/04/19 23 lithium ER (ESKALITH) 450 mg CR tabletIndications: Depression associated with Bipolar Disorder Take 1 tablet (450 mg total) by mouth 2 (two) times a day with meals 60 tablet 2 04/30/2022 08/27/19 23 lithium ER (ESKALITH) 450 mg CR tabletIndications: Bipolar Disorder Take 2 tablets (900 mg total) by mouth nightly 60 tablet 08/26/2022 08/31/19 23 lurasidone (LATUDA) 80 mg tablet Take 1 tablet (80 mg total) by mouth daily 30 tablet 3 07/02/2022 08/27/19 23 lurasidone (LATUDA) 80 mg tabletIndications: Depression associated with Bipolar Disorder Take 1 tablet (80 mg total) by mouth daily with dinner 30 tablet 1 08/26/2022 09/23/19 23 nicotine polacrilex (NICORETTE) 2 mg gumIndications:Smo haresh Cessation Chew 1 each (2 mg total) as needed for smoking cessation 100 each 02/26/2022 08/27/19 23 nicotine polacrilex (NICORETTE) 2 mg gumIndications:Smo haresh Cessation Chew 1 each (2 mg total) every 2 (two) hours as needed for smoking cessation 100 each 08/26/2022 10/10/19 24 traZODone (DESYREL) 100 mg tabletIndications: insomnia associated with depression Take 1 tablet (100 mg total) by mouth nightly as needed for sleep 30 tablet 1 03/23/2022 08/27/19 23 traZODone (DESYREL) 100 mg tabletIndications: insomnia associated with depression Take 1 tablet (100 mg total) by mouth nightly as needed for sleep 30 tablet 08/26/2022 10/10/19 24 documented as of this encounter Discharge Disposition Disposition Code Departure Means Destination Discharge to home or self care documented in this encounter Plan of Treatment Not on file documented as of this encounter Visit Diagnoses Not on filedocumented in this encounter Care Teams Death Clearance Coordinator Relationship Specialty Start Date End Date Marlin Contreras MD PCP - General 04/07/17 10/09/23 Betite Cabezas MD [address] [place] [address] Resident Psychiatry 03/23/22 09/23/23 documented as of this encounter
--- OUTSIDE RECORDS SUMMARY | 2024-03-25 18:42 | XMS_ITS | Encounter Summary ---
Author Organization [facility] Healthcare Address [address] [place] [address] Care Team Providers Care Surveyor Helper Name Role Phone Marlin Contreras MD Primary Care Provider [phone] Reason for Visit * Reason Comments Suicidal Ideation Paranoia * Auth/Cert Specialty Diagnoses / Procedures Referred By Contac t Referred To Contact Diagnoses Delusion (HCC) Bipolar affective disorder, remission status unspecified (HCC) Procedures NA Referral ID Status Reason Start Date Expiration Date Visits Re quested Visits Authorized [id number] 1 1 Encounter Details Date Type Department Care Team (Latest Contact Info) Description 02/23/2022 4:51 AM AUTO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 - 02/27/2022 1:05 PM AUTO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 Hospital Encounter [facility] [address] [place] [address] Rafa Milan MD [address] [place] [address] Ibrahima Larose MD [address] [place] [address] Don Tarango MD [address] [place] [address] Bipolar affective disorder, remission status unspecified (HCC) (Primary Dx); Delusion (CMS/HCC) (HCC) Discharge Disposition: Discharge to home or self care Social History Tobacco Use Types Packs/Day Years Used Date Smoking Tobacco: Never Humiliation, Afraid, Rape, and Kick questionnair e [...] How often do you attend chur or episcopalian services? Never 02/23/2022 Do you belong to any clubs o r organizations such as confucianist groups, unions, fraternal or athletic groups, or [...] should administer the PHQ-9) 1 02/23/2022 [facility] - Occupational Stress Questionnaire Answer Date [...] in a chcf (including now)? No 02/23/2022 Comments Unknown Sex and Gender Information Value Date Recorded Sex Assigned at Not on file Legal Sex Female 12:29 PM AUTO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 Gender Identity Not on file Sexual Orientation Not on file documented as of this encounter Last Filed Vital Signs Vital Sign Reading Time Taken Comments Blood Pressure 121/79 02/27/2022 7:00 AM AUTO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 Pulse 108 02/27/2022 7:00 AM AUTO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 Temperature 36.7 ??C (98.1 ??F) 02/27/2022 7:00 AM CS T Respiratory Rate 18 02/27/2022 7:00 AM AUTO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 Oxygen Saturation 98% 02/27/2022 7:00 AM AUTO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 Inhaled Oxygen Concentration - - Weight 58.5 kg (129 lb) 02/23/2022 9:40 AM AUTO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 Height 162.6 cm (5' 4 ) 02/23/2022 9:40 AM AUTO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 Body Mass Index 22.14 02/23/2022 9:40 AM AUTO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 documented in this encounter Discharge Summaries * Salvatore Billings MD - 02/27/2022 6:37 AM CST Inpatient Discharge Summary BRIEF OVERVIEW Admitting Provider: Ibrahima Larose MD Discharge Provider: Don Tarango MD Primary Care Physician at Discharge: Marlin Contreras MD [phone] Admission Date: 02/23/2022 Discharge Date: 02/27/2022 Admission Location: [facility] Hospital Problems/Diagnoses: Principal Problem: Bipolar affective disorder type 1, current episode manic, severe, with psychotic symptoms Active Problems: Routine general medical examination at a health care facility Resolved Problems: No resolved hospital problems. DETAILS OF HOSPITAL STAY Presenting Problem/History of Present Illness: Ms. ARIAS's history began af her age [id number], when she developed depression characterized by low mood, anhedonia, decreased appetite, fatigue, and SI. She has experienced a manic episode charcaterized by DNFS, IGDA, increased energy, pressured speech, hyper-sexuality (promiscuous), hyper-religiosity, grandiosity, and delusions (erotomanic of being Aiden Noriega's /fiana rosae, grandiosie/odd of being Perfecto Leyva's daughter, etc.). She was admitted to [facility] for 15D (02/01-) gettig treated with Aristada 882mg + Initio 675mg, chlorpromazine 100mg TID, and trazodone 100mg QHS. She has a remote history of ADHD and has previously received venlafaxine and lysdexamfetamine.. Regarding this admission, over the last week Ms. 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 She reports driving over to [place] to see his show, as well. She has also been hearing the voices of her two angels , Maxi Hutchinson and Francesca Quezada , two friends that of overdose and suicide respectively anf whom she hears inside her head giving her commands, including the one to call the police. The day of admission she called the police commanded by voices and because she felt unsafe at home with her p arents. It is uncertain if she has kept compliance with treatment since discharge. At [facility] ER she was assessed byt psychiatry and admitted involuntarily to [facility]. Hospital Course: Stephanie Arias is a 21 yo F with a PMHx of bipolar affective disorder presenting with eladio, delusions, and AH despite a recent 15 day admission 02/01 to 02/16 in which she was treated with Aristada and Initio loading and chlorpromazine. 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 During her admission, she was started on [place] ER 450mg BID on 02/23 but had continued delusions and frequent outbursts. She was started on risperidone 2mg BID 02/24 to control herpersistent psychotic symptoms. Following treatment with [place] and risperidone, Ms. Arias had a significant clinical improvement, with resolution of her delusions and AH and significant improvementin her eladio 02/26. She was discharged 02/27 with a therapeutic [place] level. At this time, she was not reporting hallucinations, delusions, SI, HI, grandiosity, hypersexuality, hyperreligiosity, pressured speech, paranoia. She will be discharged to her mother's house on [place] ER 450mg BID and Risperidone 2mg BID. Active Issues Requiring Follow-up: Chronic mental illness Test Results Pending at Discharge: NA Operative Procedures Performed: NA Other Procedures: NA Pertinent Test Results: NA Discharge Details Physical Exam at Discharge: Discharge Condition: good Pulse: 120 Resp: 19 BP: 114/75 Temp: 36.7 ??C (98 ??F) Weight: 58.5 kg (129 lb) Pertinent Exam Findings at Discharge: The patient appears to be alert and oriented x 3, in no acutedistress. Appearance and hygiene: psych safe scrubs Behavior: cooperative, pleasant. Eye contact: fair Speech: clear Mood: good. Affect: congruent Motor activity: WNL Thought process: linear Content of Thought: denies SI/HI/AVH; no apparent delusions Cognition: intact Insight and judgment: fair. Discharge Disposition: Discharge to home or self care Code Status at Discharge: Full Discharge Instructions: To be compliant with appointments and medications. Discharge Medications: Current Medications TAKE these medications hydrOXYzine 25 mg tablet Take 1 tablet (25 mg total) by mouth every 4 (four) hours as needed for anxiety For: anxious Commonly known as: ATARAX lithium ER 450 mg CR tablet Take 2 tablets (900 mg total) by mouth daily For: bipolar disorder in remission Commonly known as: ESKALITH nicotine polacrilex 2 mg gum Chew 1 each (2 mg total) as needed for smoking cessation For: stop smoking Commonly known as: NICORETTE risperiDONE 2 mg disintegrating tablet Take 2 tablets (4 mg total) by mouth nightly For: bipolar disorder in remission Commonly known as: RisperDAL M-TABS Outpatient Follow-Up: Future Appointments Date Time Provider Department Center 03/05/2022 12:30 PM [facility] 03/05/2022 1:45 PM [facility] NURSE INJECTIONS [facility] 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 documented in this encounter Medications at Time of Discharge hydrOXYzine (ATARAX) 25 mg tabletIndications:an xiety Take 1 tablet (25 mg total) by mouth every 4 (four) hours as needed for anxiety 30 tablet 1 02/26/2022 2 lithium ER (ESKALITH) 450 mg CR tabletIndications:Bi polar Disorder in Remission Take 2 tablets (900 mg total) by mouth daily 60 tablet 1 02/26/2022 2 nicotine polacrilex (NICORETTE) 2 mg gumIndications:Smoki ng Cessation Chew 1 each (2 mg total) as needed for smoking cessation 100 each 02/26/2022 3 risperiDONE (RisperDAL M-TABS) 2 mg disintegrating tabletIndications:Bi polar Disorder in Remission Take 2 tablets (4 mg total) by mouth nightly 60 tablet 1 02/26/2022 2 documented as of this encounter Ordered Prescriptions Prescription Sig Dispense Quantity Refills Last Filled Start Date End Date hydrOXYzine (ATARAX) 25 mg tabletIndications:an xiety Take 1 tablet (25 mg total) by mouth every 4 (four) hours as needed for anxiety 30 tablet 1 02/26/2022 2 nicotine polacrilex (NICORETTE) 2 mg gumIndications:Smoki ng Cessation Chew 1 each (2 mg total) as needed for smoking cessation 100 each 02/26/2022 3 risperiDONE (RisperDAL M-TABS) 2 mg disintegrating tabletIndications:Bi polar Disorder in Remission Take 2 tablets (4 mg total) by mouth nightly 60 tablet 1 02/26/2022 2 lithium ER (ESKALITH) 450 mg CR tabletIndications:Bi polar Disorder in Remission Take 2 tablets (900 mg total) by mouth daily 60 tablet 1 02/26/2022 2 risperiDONE (RisperDAL M-TABS) 2 mg disintegrating tabletIndications:Bi polar Disorder in Remission Take 2 tablets (4 mg total) by mouth nightly 60 tablet 1 02/26/2022 2 lithium ER (ESKALITH) 450 mg CR tabletIndications:Bi polar Disorder in Remission Take 2 tablets (900 mg total) by mouth daily 60 tablet 1 02/26/2022 2 nicotine polacrilex (NICORETTE) 2 mg gumIndications:Smoki ng Cessation Chew 1 each (2 mg total) as needed for smoking cessation 100 each 02/26/2022 2 documented in this encounter Discharge Disposition Disposition Code Departure Means Destination Discharge to home or self care documented in this encounter Progress Notes * Aria Hoyt LCSW - 02/27/2022 9:03 AM CST 02/27/22 0900 Discharge Summary Chart reviewed For Medical Necessity Does patient have a planned readmission to hospital planned? No Discharge Disposition Private residence Specify Facility [address] [place] [address] Facility Contact Number Lu Arias (Mother) [phone] Discharge Records Transfer Form Completed;Chart Copied Equipment/Provider Needs No Home Needs Identified Discharge Additional Assistance Does the patient need discharge transport arranged? Yes Has discharge transport been arranged? Yes Details of Transportation Patients mother, Lu Arias, will pick her up at 3pm. What day is the transport expected? 02/27/22 What time is the transport expected? 1500 Discharge Transportation Communication Mode of transport has been discussed with the patient/family. All are agreeable to the plan and understand their responsibilities to ensure the safe transfer. No further CM/SW intervention is anticipated at this time. Post Discharge Care Provider Post Discharge Care Plan Next level of care provider has access to complete EMR Patient was involuntarily admitted on 02/23/2022 for paranoid and bizarre behavior. Diagnosis on discharge includes Bipolar Disorder type 1, current episode manic, severe, with psychotic symptoms. Patient plans to discharge to her parents home at [address] [place] [address]. Social Work interventions during inpatient stay included initial assessment, identifying appropriate community resources, group therapy, and discharge planning. Patients mother requested IOP resources which SW emailed. Patient has scheduled intake at [facility] on 03/05 @ 1:45pm. Patient will receive medications through preferred pharmacy - escripts sent. Discharge transportation to be provided by patients Lu vides, today at 3:00pm. Patient denies SI/HI at this time. Patient will have opportunity for socialization with community supports. Patient, , RD and SW are aware and agreeable with the discharge plan. There are no further anticipated Social Work needs at this time. LORRAINE Driver, DIE MAINTENANCE TECHNICIAN 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 * Don Tarango MD - 02/26/2022 2:47 PM CST Psychiatry Attending Progress Note Interval History: NEON. Calm, cooperative, pleasant. No delusions, hallucinations, SI or HI. She has realistic plans for the future. Eating her meals and taking good care of her ADLs. Compliant with treatment. Slept 4.4H (did not take trazodone). Medications: lithium ER, 450 mg, oral, BID with meals (bkfst, dinner) [START ON 02/27/2022] lithium ER, 900 mg, oral, Daily risperiDONE, 2 mg, sublingual, BID [START ON 02/27/2022] risperiDONE, 2 mg, sublingual, Nightly PRN Medications Medication Dose Route Frequency Last Admin acetaminophen (TYLENOL) tablet 650 mg 650 mg oral Q4H PRN 650 mg at 02/26/22 1023 haloperidol (HALDOL) injection 5 mg 5 mg intramuscular Q4H PRN 5 mg at 02/23/22 1635 And LORazepam (ATIVAN) injection 2 mg 2 mg intramuscular Q4H PRN 2 mg at 02/23/22 1635 haloperidoL (HALDOL) tablet 5 mg 5 mg oral Q6H PRN hydrOXYzine (ATARAX) tablet 25 mg 25 mg oral Q4H PRN 25 mg at 02/26/22 1304 nicotine polacrilex (NICORETTE) gum 2 mg 2 mg mouth/throat Q2H PRN 2 mg at 02/26/22 1304 traZODone (DESYREL) tablet 50 mg 50 mg oral Nightly PRN 50 mg at 02/25/222024 Medication Compliance: Compliant Physical Exam: Vitals: 02/26/22 0813 BP: 126/75 Pulse: 110 Resp: 20 Temp: 36.2 ??C (97.2 ??F) SpO2: 98% Total Hours of Sleep: 4.4 Mental Status Exam: General Appearance and Behavior: Appears stated age No apparent distress Normal psychomotor activity Good eye contact Cooperative Speech: Mildly increased rate, interruptible Normal rhythm Normal volume Normal amount Magaly tonal variety Spontaneous Normal latency (<3 seconds) Flow of Thought: logical, sequential and goal oriented Content of Thought: Negative for homicidal ideation, thought insertion, thought withdrawal, thought broadcasting, obsessions, and ruminations Negative for suicidal ideation Delusions: resolved Auditory hallucinations: resolved Mood: good Affect: euthymic, appropriate to conversation/situation, and mood-incongruent Insight: fair Judgment: fair Sensorium: alert, awake, and oriented x 3 Lab/Radiology/Diagnostic Review: Laboratory review: Lab results in the last 48 hours: No results found for this or any previous visit (from the past 48 hour(s)). and Imaging review: I have Radiology Impressions last 48 hours: No results found. PRIMARY DIAGNOSIS: - Bipolar affective disorder type 1, current episode manic, severe, with psychotic symptoms Ms. 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 She is now returning a week after her discharge once again manic, delusional and hallucinating. That is despite Aristada and Initio loading (uncertain if she kept compliance with chlorpromazine) She agreed to starting Li2CO3 Ms. ARIAS is doing much better. No hallucinations, delusions, SI or HI. Her mood is euthymic and more stable. We will get a Li level tomorrow and will discharge after that. Discussed with patient, her mother, SULEMAN and MD doing X-coverage tomorrow (Dr. Billings). Plan - Li2CO3 ER 450mg BID (900mg QAM upon discharge) - Li level after 4 half-lives (02/27) - Risperidone 2mg BID PO (4mg QHS upon discharge) - Supportive psychotherapy - Therapeutic milieu - Precautions: s/a/e - PRNs: haloperidol - Int Med recs - SW intervention - Disposition: back home with parents - On a 96H, 21D called off - Will discharge tomorrow MD Donis 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 * Ryland Russo LCSW - 02/26/2022 2:15 PM CST Spoke with Dad [phone] who confirmed pickup time for tomorrow at 3pm. He states that they willpick pt up at this time and requested to not tell her that she can be picked up earlier. SULEMAN then spoke with mom at [phone] who will pickling machine operator at that time as well. She also requested IOP resources. SW emailed list of IOPS. Mom also had concerns regarding discharging medications and if pt will have atarax. SW confirmed with [facility] that they can not fill meds. Pt's mother agreed that the med scripts can be sent to [facility] in [place]. updated with preferred pharmacy and confirmed that he will send atarax to preferred pharmacy as well. LORRAINE Phelps, DIE MAINTENANCE TECHNICIAN 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 * Don Tarango MD - 02/25/2022 2:52 PM CST Psychiatry Attending Progress Note Interval History: Ms. DUNN is calm and pleasant with us when we round with her but previously she was irritable and tearful. She has been eating mostly snacks due to paranoia about other patients. To us she denies having the ideas about sex traffickers, being the daughter of Perfecto Leyva or Aiden Noriega's anymore. She does state conditional SI in terms of trying to drive us to discharge her. Slept 6.1H Medications: [START ON 03/04/2022] ARIPiprazole lauroxil, 882 mg, intramuscular, every 4 weeks lithium ER, 450 mg, oral, BID with meals (bkfst, dinner) risperiDONE, 2 mg, sublingual, BID PRN Medications Medication Dose Route Frequency Last Admin acetaminophen (TYLENOL) tablet 650 mg 650 mg oral Q4H PRN 650 mg at 02/25/22 1151 haloperidol (HALDOL) injection 5 mg 5 mg intramuscular Q4H PRN 5 mg at 02/23/22 1635 And LORazepam (ATIVAN) injection 2 mg 2 mg intramuscular Q4H PRN 2 mg at 02/23/22 1635 haloperidoL (HALDOL) tablet 5 mg 5 mg oral Q6H PRN hydrOXYzine (ATARAX) tablet 25 mg 25 mg oral Q4H PRN 25 mg at 02/25/22 0747 nicotine polacrilex (NICORETTE) gum 2 mg 2 mg mouth/throat Q2H PRN 2 mg at 02/24/22 1153 traZODone (DESYREL) tablet 50 mg 50 mg oral Nightly PRN 50 mg at 02/24/22 2147 Medication Compliance: Compliant Physical Exam: Vitals: 02/25/22 0833 BP: 141/71 Pulse: (!) 135 Resp: 18 Temp: 36.3 ??C (97.3 ??F) SpO2: 98% Total Hours of Sleep: 6.1 Mental Status Exam: General Appearance and Behavior: Appears stated age No apparent distress Normal psychomotor activity Good eye contact Cooperative Speech: Increased rate but interruptible Normal rhythm Normal volume Normal amount Increased tonal variety Spontaneous Normal latency (<3 seconds) Flow of Thought: logical, sequential and goal oriented Content of Thought: Negative for homicidal ideation, thought insertion, thought withdrawal, thought broadcasting, obsessions, and ruminations Conditional SI Delusions: denies persecutory and grandiose delusions Auditory hallucinations: denies them today Mood: doing okay Affect: less unstable than yesterday, inappropriate to conversation/situation, and mood-incongruent Insight: incipient Judgment: poor Sensorium: alert, awake, and oriented x 3 Lab/Radiology/Diagnostic Review: Laboratory review: Lab results in the last 48 hours: No results found for this or any previous visit (from the past 48 hour(s)). and Imaging review: I have Radiology Impressions last 48 hours: No results found. PRIMARY DIAGNOSIS: - Bipolar affective disorder type 1, current episode manic, severe, with psychotic symptoms Ms. 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 She is now returning a week after her discharge once again manic, delusional and hallucinating. That is despite Aristada and Initio loading (uncertain if she kept compliance with chlorpromazine) She agreed to starting Li2CO3 Ms. ARIAS has been less agitated but still yelling and having some lability. She denies delusions and hallucinations now. On the other hand, she is still labile and having conditional SI. Plan - Li2CO3 ER 450mg BID - Li level after 4 half-lives - Risperidone 2mg BID PO - Supportive psychotherapy - Therapeutic milieu - Precautions: s/a/e - PRNs: haloperidol - Int Med recs - SW intervention - Disposition: back home with parents - On a 96H, filing a 21D (02/25) MD Donis 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 * Radha Kang MT-BC - 02/25/2022 12:01 PM CST Patient stopped this MT-BC on the unit and asked to talk during 0945 snack time. Pt appeared anxious and stated she did not feel safe on the unit. Pt stated you know the guys that have been touchingyou? They're sex traffickers. That's why I don't feel safe here. (The unit does have a couple of hyper-sexual, intrusive male peers) This MT-BC assured the pt that she was safe. Pt returned to her room after receiving snack from RN. TURNER Ying 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 * Jamila Ochoa MSW - 02/25/2022 12:00 PM CST Problem: The patient requires inpatient psychiatric services and treatment due to diagnosis of Bipolar affective disorder type 1, current episode manic, severe, with psychotic symptoms. Goal: Continue to discuss care with treatment team, secure a safe discharge plan that patient/family are agreeable with, and ensure patient has continuum of care. Discharge plan: Anticipate patient will return to one of her parents homes at discharge. Primary contact: Colten [phone] Mother [phone] Follow up: Pt follows at the [facility] Insurance: [employer] Transportation: Family/Friends Resources/referrals: IOP ADD: TBD, pending clinical course. 21 day petition has been submitted. Jamila Ochoa LMSW 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 * Don Tarango MD - 02/24/2022 11:58 PM CST Psychiatry Attending Progress Note Interval History: Overnight she required haloperidol & lorazepam IM for attempting to elope the unit and getting agitated. No longer delusional about her parents but delusional about other patients being involved in sex trafficking women and popping tires , including her mother's. Paranoid. Denies voices today. Quite labile Slept 7H. Medications: [START ON 03/04/2022] ARIPiprazole lauroxil, 882 mg, intramuscular, every 4 weeks lithium ER, 450 mg, oral, BID with meals (bkfst, dinner) risperiDONE, 2 mg, sublingual, BID PRN Medications Medication Dose Route Frequency Last Admin acetaminophen (TYLENOL) tablet 650 mg 650 mg oral Q4H PRN 650 mg at 02/24/22 2350 haloperidol (HALDOL) injection 5 mg 5 mg intramuscular Q4H PRN 5 mg at 02/23/22 1635 And LORazepam (ATIVAN) injection 2 mg 2 mg intramuscular Q4H PRN 2 mg at 02/23/22 1635 haloperidoL (HALDOL) tablet 5 mg 5 mg oral Q6H PRN hydrOXYzine (ATARAX) tablet 25 mg 25 mg oral Q4H PRN 25 mg at 02/24/22 2350 nicotine polacrilex (NICORETTE) gum 2 mg 2 mg mouth/throat Q2H PRN 2 mg at 02/24/22 1153 traZODone (DESYREL) tablet 50 mg 50 mg oral Nightly PRN 50 mg at 02/24/22 2147 Medication Compliance: Compliant Physical Exam: Vitals: 02/24/22 0813 BP: 131/77 Pulse: 82 Resp: 22 Temp: SpO2: 99% Total Hours of Sleep: 7.0 Mental Status Exam: General Appearance and Behavior: Appears stated age No apparent distress Normal psychomotor activity Good eye contact Cooperative Speech: Increased rate and difficult to interrupt Normal rhythm Normal volume Increased amount Increased tonal variety Spontaneous Normal latency (<3 seconds) Flow of Thought: circumstantial Content of Thought: Negative for suicidal ideation, homicidal ideation, thought insertion, thought withdrawal, thought broadcasting, obsessions, and ruminations Delusions: Persecutory other patients trafficking women and popping tires, [id number] she is Aiden Noriega's /fiancee and Perfecto Leyva's daughter. Referential that Aiden Noriega issending her secret messages that [she is] a healer Auditory hallucinations: denies them today Mood: great, fantastic Affect: labile, inappropriate to conversation/situation, and mood-incongruent Insight: poor Judgment: poor Sensorium: alert, awake, and oriented x 3 Lab/Radiology/Diagnostic Review: Laboratory review: Lab results in the last 48 hours: Recent Results (from the past 48 hour(s)) CBC with auto differential Collection Time: 02/23/22 5:37 AM Result Value Ref Range WBC 9.6 3.8 - 9.9 K/cumm Hgb 12.6 11.9 - 15.5 g/dL Hct 37.3 35.6 - 45.5 % Plt 304 150 - 400 K/cumm MPV 8.7 (L) 9.1 - 12.3 fL RBC 4.03 3.90 - 5.20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 Bipolar I Disorder and recently discharged from [facility] presenting with bizarre/paranoid/erotomanic delusions and apparent DNFS, though history highly limited due to lackof collateral information. Exam notable for paranoia regarding her parents, irritability and mildlytangential FoT. Given that her apparent delusions that are fixed enough to contact EMS, the potentia lly serious consequences of poorly treated psychosis in this patient, and the lack of collateral information, the patient is appropriate for involuntary hospitalization for further diagnostic clarityand improved management. The patient does not appear markedly manic on exam at this time and is without characteristic MSE features (e.g., flight of ideas, rapid or pressured speech), which places some diagnostic ambiguity regarding the source of her current psychosis, which may be related to hypomania, sleep deprivation, or substance abuse, though the patient's UDS is positive only for cannabinoids. Further collateral and observation will be useful for further diagnostic clarity. Risk Assessment: Risk factors: chronic psychiatric disorder, psychosis, loss of rational thinking, and poor coping skills Protective factors: access to healthcare/mental health resources, stable housing, and support system of family At this time, the patient denies suicidal ideation. she does not have a plan and denies suicidal intent. The patient has demonstrated the following self-harm behaviors: none . Overall, the patient is at chronically low risk of harm due to non-modifiable risk factors; she is at additional acutely elevated high risk of harm to self/others given her current psychosis. Stephanie Arias meets criteria for inpatient admission due to presence of imminent risk of harm to self or others with modifiable risk factors addressable by psychiatric hospitalization. Recommendations: - Please admit patient INVOLUNTARY to [facility] or [facility] under Dr. Larose or Dr. Azevedo respectively with standard suicide/elopement/assault precautions - 96 hour paperwork completed, notarized, faxed to patient placement, and placed in chart - Discussed with ED team and psychiatry technology risk intern on-call - While boarding, please start patient on Risperdal 2mg qHS, Trazodone 100mg qHS - In case of acute agitation, may consider olanzapine 10 mg PO TID PRN, or olanzapine 10 mg IM TID PRN if severely agitated or refusing PO. Please avoid administering benzodiazepines within 1 hour ofolanzapine administration given risk of acute respiratory depression. - While patient is still in the ED, please call ED Psychiatry Service with any questions or to request re-evaluation at [phone] - Should patient be admitted to a medical or surgical floor and psychiatric consultation assistanceis still needed please place a Psychiatry Consult order in [facility] and call the Inpatient Psychiatry Consult Service at [phone] Eliot Brenner MD Rn Nursery, PGY-2 For patients or family members viewing this note through [employer] programs: This note was written as a [...] no longer be involved in your care. 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 documented in this encounter Nursing Notes * Emerald Alvarado RN - 02/27/2022 1:28 PM CST Patient discharged from unit at 1305 via mother/personal vehicle to home. All discharge instructions provided and patient verbalized understanding. Discharge medications and follow up appointments provided. Mood stable and appropriate for situation. Denies SI/HI/AH/VH at this time. Patient verbalized understanding. Patient property returned and all education points completed with patient understanding. Safety beacon removed. 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 * Emerald Alvarado RN - 02/27/2022 11:00 AM CST C/o anxiety 08/04. Atarax 25mg given po. 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 * Gretel Becerra RN - 02/27/2022 5:34 AM CST @ 0534 patient requesting PRN for menstrual cramps that she rates a 4. Offered and patient acceptedAcetaminophen 650 mg po. Her nurse will follow up in one hour for effectiveness. 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 * Gretel Becerra RN - 02/27/2022 3:36 AM CST Patient requesting a PRN for anxiety she rates a 7. Offered and patient accepted Atarax 25 mg po, will follow up in one hour for effectiveness. Patient then asked for a snack and stated she was heading back to bed. Patient was pleasant and polite but showed signs of increased anxiety. @ 0436 Patient appears to be sleeping in her bed, Atarax successful to the point patient was able to get some rest at this time. SELA * Gretta Rodriguez RN - 02/26/2022 7:50 PM CST Stephanie seen in the dining room A&Ox4, calm, bright and cooperative. Pt states I'm tired but amglad going home tomorrow . Pt endorses no feeling of anxiety, depression, suicidal, homicidal, AV hallucinations and pain. Pt medication compliant, PRN Nicotine gum 2 mg given. No unsafe behavior observed or reported. No distress voiced or noted. Will continue to maintain safety and give comfort. @2229 Stephanie reports anxiety 10/04, I'm feeling anxious about going home tomorrow . PRN Atarax 25 mg po given. @2255 Pt's mom called requesting for 5 pills of Risperdal because it won't be available at [facility] Tuesday. She states I won't take her home without it . Incoming nurse notified about mom's concern. SELA * Chanel Steele RN - 02/26/2022 3:50 PM CST Pt is a anxious, well excited because my Dad is coming. She offered c/o headache rated at 4/10. Tylenol 650 mg was given per request. She stated she is just ready to go and being in here gives her the headache. SELA * Chanel Steele RN - 02/26/2022 1:04 PM CST Atarax 25 mg given po for anxiety. She stated she got woke up and was served papers for 21 day and it threw me off. She told me that she remembered that her Mom and the doctor talked and she will get to go home tomorrow after taking the atarax. 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 * Chanel Steele RN - 02/26/2022 10:28 AM CST Pt stated she is starting to get a headache and was given tylenol 650 mg po for pain. SELA * Chanel Steele RN - 02/26/2022 9:21 AM CST Pt stated she is doing much better than when you saw me last. So much better. She denies feeling depressed but rated anxiety maybe 1 She stated she cried yesterday because it hit her how I had been acting. She denies SI/HI and a/v/h. She was given atarax 25 mg po for feeling a little anxious. She is social on the unit and has been smiling and assertive. She denies delusions SELA * Gretta Rodriguez RN - 02/25/2022 7:45 PM CST Stephanie seen in the dining room having snacks, alert, oriented x4, calm and cooperative. Pt states I had a nice day today family/friend came visiting. I'm fine no issues today . Pt denied feeling of anxiety, depression, suicidal, homicidal, AV hallucinations. Pt medication compliant, PRN Trazodone 50 mg po for sleep, Tylenol 650 mg po for pain were administered. No unsafe behavior observed or reported. No distress voiced or noted. Will continue to maintain safety and give comfort. @0237 Pt c/o anxiety rated 3, PRN Atarax 25 mg po given. @0133 Nicotine gun 2 mg given 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 * Krystina French RN - 02/25/2022 12:46 PM CST 1151 Patient reports pain to the head. Rated as 5/10. PRN Tylenol 650 mg po (see note) given. Will continue to monitor 1245 No further c/o pain at this time 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 * Krystina French RN - 02/25/2022 9:01 AM CST Stephanie Arias appears irritable and tearful. She reports frustration about being here and not feeling safe on the unit. Patient informed that security and staff are always present and that she is safe. Patient also encouraged to seek out staff when feeling unsafe. Compliant with medication. No complains of pain. No other complains voiced. Will continue to monitor and provide support for patient. 02/25/22 0800 Psychosocial Assessment Patient Complaints Anxiety Facial Expression Anxious Affect Sad Mood Anxious/Worried;Irritable;Sad;Frustrated Eye Contact Avertive Exhibited Behavior Crying Interaction Assertive Motor Activity WDL Appearance/Hygiene Appropriate/neat/clean Patient Reported Depression and Anxiety Patient reported depression 0-10 0 Patient reported anxiety 0-10 3 Thought Content Delusions No delusions Hallucinations None Ambivalence Yes Orientation and Intellectual Functioning Concentration Fair Memory Good Insight Fair Judgement Fair Decision Making Fair Orientation Level Oriented X4 Level of Consciousness Alert Language and Speech Speech Appropriate Suicidal, Homicidal, and Self Harm Assessment Currently suicidal? No Currently Homicidal? No Self Harm Behaviors Other (Comment) (none) Self Harm Thoughts With Intent Other (Comment) (none) Self Harm Thoughts Without Intent Other (Comment) (none) Safety Call Light Within Reach No (Comment) Bed In Lowest Position No (Comment) Bed Wheels Locked No (Comment) Precautions 15 minute checks;Elopement risk;Suicide risk Blanco Fall Risk Secondary Diagnosis 0 Ambulatory Aids 0 Intravenous Therapy/Heparin/Saline Lock 0 Gait/Transferring 0 Mental Status 0 History of Falling 0 Prior Fall Event (Autopopulated from EMR) None found Blanco Fall Risk Score 0 Fall Risk Interventions All Low Fall Interventions Applied No All Low Fall Interventions EXCEPT: Non-skid footwear/socks;Lighting adequate Reason For Exception(s) [facility] - Bedside Mobility Assessment Tool for Nurses Is patient able to participate in the BMAT? Yes BMAT Level Level 4 - Green Neurological Neuro (WDL) WDL HEENT HEENT (WDL) WDL Respiratory Respiratory (WDL) WDL Cardiac Cardiac (WDL) X Pulse (tachycardic) Peripheral Vascular Peripheral Vascular (WDL) WDL Integumentary Integumentary (WDL) WDL Jacob Scale Sensory Perceptions 4 Moisture 4 Activity 4 Mobility 4 Nutrition 3 Friction and Shear 3 Jacob Scale Score 22 Musculoskeletal Musculoskeletal (WDL) WDL Gastrointestinal Gastrointestinal (WDL) WDL Genitourinary Genitourinary (WDL) WDL Anus/Rectum Anus/Rectum (WDL) WDL Charting Type Charting Type Shift assessment 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 * Gretta Rodriguez, SAGAR - 02/24/2022 9:10 PM CST Stephanie seen in her room by the bedside, alert, oriented x4, calm and cooperative. C/o anxiety rated3, depression 4 and pain 6. Pt denied feeling of suicidal, homicidal, AV hallucination. Pt medication compliant, PRN Atarax 25 mg po for anxiety, Trazodone 50 mg po for sleep and Tylenol 650 mg for pain were administered. No unsafe behavior observed or reported. No distress voiced or noted. Will continue to maintain safety and give comfort. 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 * Chanel Steele RN - 02/24/2022 6:37 PM CST I had woke Stephanie to eat her dinner and she got upset after seeing that she didn't get a peanut butter jelly sandwich. I told her she has to eat because she can't keep taking medicine on an empty stomach. She wanted to take her dinner to her room so I let her eat in there and she did manage to eat her chicken but then she started crying stating she needed to go to the opital because I'm sick. I don't feel good. She cried and cried and was given support, meds explained to her and how they can make her feel and she did start to calm down. She c/o being hungry and wanting junk food and askedfor chips and cookies and was given them. She offers she doesn't want to be here, she wants to go home and sleep. She was given atarax 25 mg po and tylenol 650 mg po for c/o headache. 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 * Chanel Steele RN - 02/24/2022 12:49 PM CST Pt had asked early for a peanut butter sandwich, dietary was notified and sent pt the sandwich. Shetold me she ate it but had actually given it away and tells me at this time I didn't know who madeit. Pt had refused to talk risperdal before talking to Dr. Dykes about it and it has now been given along with an atarax 25 mg po and a snack. I encouraged her to stop giving away her food and start eating it instead of getting snacks all the time. She is rating depression as 6 and when asked about anxiety she would tell me 6, 7, 8. Pt stated she just wants to leave. 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 * Chanel Steele RN - 02/24/2022 11:52 AM CST Pt c/o headache and was given tylenol as she asked for. She refused full dose and would only take 325 mg po of the tylenol stating it works fine for me. She had rated h/a pain as 8 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 * Chanel Steele RN - 02/24/2022 9:24 AM CST Pt seems a little more relaxed since taking atarax. She isn't making statements about sex trafficking at this point. 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 * Chanel Steele RN - 02/24/2022 8:24 AM CST Pt is paranoid at this time. She believes that peers are here to sex traffic other people here and that everyone is in on it. I asked her why she thought this and she stated Cant you hear what he issaying? She is talking about a male psychotic pt rambling on about many different things religiously and sexually. I attempted to reassure her that there is no sex trafficking going on here and people are here because they are sick. She denies this and wants to go home. I see what's going on around here. She asked for and was given atarax 25 mg po for anxiety. 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 * Rebecca Guardado RN - 02/24/2022 3:07 AM CST Pt unable to be assessed due to being asleep. Pt was not woken as she received prn medication for agitation earlier in the day. Pt also does not have any scheduled night time meds. Pt appeared to sleep throughout night, it was reported that she was crying in her room at one point but denied wantingto talk about it. No other remarkable events. 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 * Sujatha Ledezma RN - 02/23/2022 4:27 PM CST Restraint Face to Face Documentation Restraints were initiated on Stephanie Arias on: 02/23/2022 at 4:25 pm. Application of restraints were requested by Dr Dykes. Type of restraint: Seclusion Immediate situation requiring initiation of restraint: Pt trying to get out exit door and touching housekeeping. Patient response to Situation: Remained agitated. Known medical or physical conditions increasing risk of injury: None Signs of Injury: None Known history of Physical/Sexual abuse increasing risk of stress or trauma from restraint event: None Level of Consciousness: Alert Circulation Checked (restraints only): NA Airway Patent: yes Need to continue Restraint/Seclusion: Yes, yes Additional Comments: NA Vitals: 02/23/22 0942 BP: 110/61 Pulse: (!) 128 Resp: 16 Temp: SpO2: 99% Lab Results Component Value Date WBC 9.6 02/23/2022 HGB 12.6 02/23/2022 HCT 37.3 02/23/2022 LABPLAT 304 02/23/2022 CHOL 127 02/01/2022 TRIG 30 02/01/2022 HDL 58 02/01/2022 ALT 25 02/23/2022 AST 26 02/23/2022 SODIUM 139 02/23/2022 POTASSIUM 3.7 02/23/2022 CHLORIDE 103 02/23/2022 CREATININE 0.68 02/23/2022 BUNSER 9 02/23/2022 CO2 27 02/23/2022 TSH 0.59 02/01/2022 GLUCOSE 111 02/23/2022 Evaluation: The trained RN performing a face to face assessment must consult attending MD or licensed independent practitioner responsible for care of patient as soon as possible after the assessmentis completed. Physician consulted: Dr Donis Ledezma, RN 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 * Krystina French RN - 02/23/2022 4:00 PM CST 1600 Patient continue to go down the vazquez attempting to leave unit. Redirection provided and patient refused to move from [address] way. Staff and security remained with patient providing redirection. Patient eventually return to dayroom. Patient requested to phone to call police. Patient informed not to call the police and same will result in phone restriction. Patient agreed and call her mother. Continue to be agitated mouthing to staff to follow their instinct and that we are on camera. 1630 Patient seen going down the vazquez to the exit door. Would not turn back to the dayroom. Patientstarted hiding behind housekeepers attempting to leave unit. Redirection provided patient attempting to run. Therapeutic hold done by nurse and security, patient continued to be agitated attempting to leave unit. Patient brought to seclusion. Order obtained from Dr. Dykes. 1638 Patient continue to be agitated hitting at glass, yelling let me out PRN haldol and ativan given (SEE MAR) 1705 Patient appeared more calm, education provided with criteria for discontinuation of seclusion.Patient verbalized understanding. Seclusion discontinued at this time. 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 * Chanel Steele RN - 02/23/2022 1:57 PM CST Pt was admitted from [facility] at 0932 as an Involuntary pt and pt was informed of same. She is pleasant and cooperative at this time. She asked to do body search first and it was done. Negative for contraband. She does have pierced nipples but only 1 side has bar in it. Pt has stated she had been having command voices telling me what to do. She rates depression and anxiety as 1. She stated she really isn't feeling SI/HI at this time and rated both as 1/10. Pt was just here and told me she knowsthe rules and I don't have to go over them. Pt was brought to the floor ambulatory and shown to her room. She had told me the reason she is here is b/c I wanted to see my friends. She is restless and pacing around the unit. She was given her Involuntary Bill of Rights at 1010 and was ok with it but did not know why she was made involuntary after she brought herself to the ER. 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 documented in this encounter ED Notes * Rafa Milan MD - 02/23/2022 5:03 AM CST HPI Chief Complaint Patient presents with Suicidal Ideation Paranoia Patient is a 21 year old female with a history of bipolar affective disorder who presents to the [facility] for bizarre behavior. Per patient, she did not feel safe in the house because of her dad and brother. They are related to Perfecto Leyva and they are planning to kill me. I am listed in [facility] as a . Pt states her emotional support dog dialed the police and they showed up, causing more tension and pt needs a safe place to stay. Pt states she was discharged from the hospital 1 week ago and has been compliant with medication. She felt like she was sleeping well in the beginning but has gotten worse throughout the week. Pt states she did not sleep last night and does not feel tired. Pt reports making a big purchase one month ago. 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 Pt denies drug use. Reports smoking marijuana sometimes but none tonight. Reports having one shot tonight. Pt denies SI at this time. Pt states she reported SI in the ambulance because she wanted to make sure she had a safe place to stay. History provided by: Patient, medical records and EMS personnel Patient History: Patient Active Problem List Diagnosis Date Noted Bipolar affective disorder type 1, current episode manic, severe, with psychotic symptoms 02/23/2022 Cannabis dependence (HCC) 02/02/2022 Routine general medical examination at a health care facility 02/02/2022 Bipolar affective disorder, current episode manic with psychotic symptoms (CMS/HCC) (HCC) 02/01/2022 History reviewed. No pertinent past medical history. No past surgical history on file. History reviewed. No pertinent family history. Social History Tobacco Use Smoking status: Never Smokeless tobacco: None Substance and Sexual Activity Alcohol use: None Drug use: None Sexual activity: None Social History Social History Narrative Not on file Review of Systems Review of Systems Unable to perform ROS: Psychiatric disorder Physical Exam ED Triage Vitals Temp Pulse Resp BP SpO2 02/23/2245102/23/2245102/23/2245102/23/2245102/23/22451 36.5 ??C (97.7 ??F) 85 18 124/63 99 % Temp src Heart Rate Source Patient Position BP Location FiO2 (%) 02/23/2293902/23/2290302/23/2293902/23/22903 -- Oral Monitor Sitting Right arm Height Height Method Weight Weight Method 02/23/2293902/23/2293902/23/22451 -- 1.626 m (5' 4 ) Stated 55.8 kg (123 lb 0.3 oz) Physical Exam Vitals and nursing note reviewed. Constitutional: General: She is not in acute distress. Appearance: She is well-developed. She is not ill-appearing. HENT: Head: Normocephalic and atraumatic. Eyes: General: Right eye: No discharge. Left eye: No discharge. Conjunctiva/sclera: Conjunctivae normal. Cardiovascular: Rate and Rhythm: Normal rate and regular rhythm. Pulses: Normal pulses. Heart sounds: No murmur heard. Pulmonary: Effort: Pulmonary effort is normal. No respiratory distress. Breath sounds: Normal breath sounds. Abdominal: Palpations: Abdomen is soft. Tenderness: There is no abdominal tenderness. Musculoskeletal: General: No swelling. Normal range of motion. Cervical back: Normal range of motion and neck supple. Right lower leg: No edema. Left lower leg: No edema. Skin: General: Skin is warm and dry. Capillary Refill: Capillary refill takes less than 2 seconds. Neurological: Mental Status: She is alert and oriented to person, place, and time. Gait: Gait normal. Psychiatric: Mood and Affect: Mood normal. Speech: Speech is rapid and pressured. Behavior: Behavior is hyperactive. Thought Content: Thought content does not include homicidal or suicidal ideation. MDM Medical Decision Making Differential Diagnosis or Management Options: Ddx: manic behavior, bipolar disorder, lower concern alcohol intoxication or drug use Plan: pt is a 21 year old female recently diagnosed with bipolar disorder who presents to the ED for delusions and insomnia. Plan to obtain labs and consult psych. Reviewed previous records: From clinic visits and previous admission(s) Summarize previous history: Discharged from [facility] on 02/16/22 for treatment of bipolar disorder with [facility] ED Course as of 02/28/22 1816 Time: 02/23 6697 Comment: Psych aware of pt By: Simran Simon NP Time: 02/23 637 Comment: Pt reports anxiety and asks for 0.5mg ativan. Pt states I got that last time I was in thehospital. Ordered. Pt is involuntary admit to [facility] By: Simran Simon NP Final diagnoses: Bipolar affective disorder, remission status unspecified (HCC) Delusion (CMS/HCC) (HCC) I have seen and examined the patient on 02/23/2022 in conjunction with Simran Simon My findings and recommendations are psychiatric consultation for possible admission given history, persistent delusions and psychotic behavior (calling police because she felt unsafe at home given her family's relationship to serial killer). Rafa Milan MD 02/23/22626 Rafa Milan MD 02/28/221815 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 * Kathy Irby RN - 02/23/2022 5:02 AM CST Pt presents to ED with EMS. Pt states My dad is linked to Junior Leyva stuff. Everybody I know is linked to Junior Leyva. I did not feel safe tonight. Pt originally called PD to parents residents and PD called EMS. Pt has Hx of bipolar disorder and SI. 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 documented in this encounter Miscellaneous Notes * Plan of Care - Gretta Rodriguez RN - 02/26/2022 7:50 PM CST Problem: Health Behavior: Goal: Understanding of discharge needs will improve Outcome: Progressing Problem: Coping: Goal: Ability to identify and develop effective coping behavior will improve Outcome: Progressing Problem: Treatment compliance Goal: Verbalize importance of compliance with medication(s) prescribed Outcome: Progressing Problem: Health Behavior: Goal: Understanding of discharge needs will improve Outcome: Progressing Problem: Coping: Goal: Ability to identify and develop effective coping behavior will improve Outcome: Progressing Problem: Treatment compliance Goal: Verbalize importance of compliance with medication(s) prescribed Outcome: Progressing Goals: Clinical Goals for the Shift: keep out here and being production Summary: 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 * Hospital Course - Jace Merino - 02/26/2022 1:46 PM CST Stephanie Arias is a 21 yo F with a PMHx of bipolar affective disorder presenting with eladio, delusions, and AH despite a recent 15 day admission 02/01 to 02/16 in which she was treated with Aristada and Initio loading and chlorpromazine. 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 During her admission, she was started on [place] ER 450mg BID on 02/23 but had continued delusions and frequent outbursts. She was started on risperidone 2mg BID 02/24 to control herpersistent psychotic symptoms. Following treatment with [place] and risperidone, Ms. Arias had a significant clinical improvement, with resolution of her delusions and AH and significant improvementin her eladio 02/26. She was discharged 02/27 after a [place] level showing on 02/27. At this time,she was not reporting hallucinations, delusions, SI, HI, grandiosity, hypersexuality, hyperreligiosi ty, pressured speech, paranoia. She will be discharged to her mother's house on [place] ER 450mg BID and Risperidone 2mg BID. 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 * Plan of Care - Chanel Steele RN - 02/26/2022 9:32 AM CST Goals: Clinical Goals for the Shift: keep out here and being production Summary: Problem: Health Behavior: Goal: Understanding of discharge needs will improve Outcome: Progressing Problem: Coping: Goal: Ability to identify and develop effective coping behavior will improve Outcome: Progressing Problem: Self-Concept: Goal: Ability to modify response to factors that promote anxiety will improve Outcome: Progressing Goal: Level of anxiety will decrease Outcome: Progressing Problem: Treatment compliance Goal: Verbalize importance of compliance with medication(s) prescribed Outcome: Progressing Problem: Healthy functioning Goal: Identify healthy coping skills Description: Identify 3 healthy coping skills Outcome: Progressing Problem: Alteration in thought Goal: Demonstrate controlled behavior related to command hallucinations Outcome: Progressing Problem: Poor anger management Goal: Identify triggers of anger Description: Identify 3 things that trigger anger Outcome: Progressing Goal: Report/demonstrate decrease in blaming others Outcome: Progressing Problem: Thoughts of harm to self or others Goal: Report decrease in/absence of self-harm thoughts Outcome: Progressing Goal: Verbalize plan to remain safe when thoughts of self-harm arise Outcome: Progressing Problem: Lack of Knowledge: Goal: Knowledge of restraints will improve Description: INTERVENTIONS: 1. Educate patient/caregiver on restraints Outcome: Progressing Problem: Safety - Violent/Self-Destructive Restraint Goal: Remains free of injury from restraints (Restraint for Violent/Self- Destructive Behavior) Description: INTERVENTIONS: 1. Determine that de-escalation and other, less restrictive measures have been tried or would not be effective before applying the restraint 2. Identify and document the criteria for restraint 3. Evaluate the patient's condition at the time of restraint application and continue to monitor patient's condition 4. Inform patient/family regarding the reason for restraint/seclusion 5. Q2H: Monitor comfort, nutrition and hydration needs 6. Q15M: Perform safety checks including skin, circulation, sensory, respiratory and psychological status 7. Ensure continuous observation and safety/first aid measures are in place (i.e. Quick release, suction, crash cart, etc.) 8. Identify and implement measures to help patient regain control, assess readiness for release andinitiate progressive release per policy Outcome: Progressing Goal: Free from restraints (Restraint for Violent or Self-Destructive Behavior) Description: INTERVENTIONS: 1. Verify that a physician or other LIP has performed a face to face examination within one hour ofrestraint application 2. Assess and document the patient's behavior or symptoms that indicate continued need for restraint, notify LIP and obtain renewal orders as indicated --Q4H for patient age 18 or older --Q2H for patients age 9 through 17 --Q1H for patients age 8 and under 3. Q4h: Verify that an LIP has performed a face to face examination and entered a new order 4. Identify and implement measures to help patient regain control, assess readiness for release andinitiate progressive release per policy Outcome: Progressing Problem: Lack of Knowledge: Goal: Ability to develop a pain control plan will improve Outcome: Progressing Goal: Ability to identify pain intensity on a pain scale and rate it consistently will improve Outcome: Progressing Goal: Ability to notify healthcare provider of pain before it becomes unmanageable or unbearable will improve Outcome: Progressing Problem: Medication: Goal: Satisfaction with pain management regimen will improve Outcome: Progressing Problem: Sensory: Goal: Ability to identify factors that increase the pain will improve Outcome: Progressing Goal: Pain level will decrease Outcome: Progressing 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 * Medical Student - Jace Merino - 02/26/2022 7:26 AM CST Psychiatry Progress Note Interval History: Says she feels significantly better, mind is calm. Regrets her previous behavior and her extravagant purchases. Is embarrassed by how she acted. Visited with her mom yesterday- said it was very nice and that she wants to mend her relationship with her mom. Denies previous delusion that other patients are in a sex trafficking ring. Says she is eating now (not just snacks). Denies SI, HI, hallucinations, delusions. -Tylenol, Trazodone, Atarax PRN yesterday - Compliant with medications ([place] and Risperidone) - Total Hours of Sleep: 4.4 Medications: Scheduled [START ON 03/04/2022] ARIPiprazole lauroxil, 882 mg, intramuscular, every 4 weeks lithium ER, 450 mg, oral, BID with meals (bkfst, dinner) risperiDONE, 2 mg, sublingual, BID PRN acetaminophen, 650 mg, 650 mg at 02/25/22 2326 haloperidol, 5 mg, 5 mg at 02/23/22 1635 AND LORazepam, 2 mg, 2 mg at 02/23/22 1635 haloperidoL, 5 mg hydrOXYzine, 25 mg, 25 mg at 02/26/22 0237 nicotine polacrilex, 2 mg, 2 mg at 02/26/22 0133 traZODone, 50 mg, 50 mg at 02/25/222024 Physical Exam: Vitals: 02/25/222005 BP: 122/81 Pulse: 105 Resp: 18 Temp: 36.5 ??C (97.7 ??F) SpO2: 97% Gen: Patient is in no acute distress Mental Status Examination: Appearance/Behavior: - Appears stated age - Well groomed - Normal psychomotor activity -Good eye contact - Cooperative Speech: normal volume, normal rate, does not interrupt as frequently. Spontaneous. Normal latency Flow of Thought: Logical, linear, goal-oriented. Content of Thought: Denies SI, HI, hallucinations, delusions, paranoia. Remorseful about previous behavior. Hopeful about mending relationships with family. Mood: Good Affect: Mood-congruent Insight: fair Judgment: fair Sensorium: AOx3 Lab/Radiology/Diagnostic Review: Recent Labs Lab Units 02/23/22 0537 SODIUM mmol/L 139 POTASSIUM PLASMA mmol/L 3.7 CHLORIDE mmol/L 103 CO2 mmol/L 27 BUN SERUM mg/dL 9 CREATININE mg/dL 0.68 GLUCOSE mg/dL 111 ANIONGAP mmol/L 9 CALCIUM mg/dL 9.1 Recent Labs Lab Units 02/23/22 0537 WBC K/cumm 9.6 HEMOGLOBIN g/dL 12.6 HEMATOCRIT % 37.3 PLATELETS K/cumm 304 MCV fL 92.6 NEUTROS ABS K/cumm 7.1* Recent Labs Lab Units 02/23/22 0537 BILIRUBIN TOTAL mg/dL 0.3 ALK PHOS Units/L 74 AST Units/L 26 ALT Units/L 25 ALBUMIN g/dL 4.8 I have reviewed the above laboratory results. Imaging Results: No results found. Assessment/Plan PRIMARY DIAGNOSIS: Bipolar affective disorder, current episode manic with psychotic symptoms (CMS/HCC) ([facility]) Stephanie has a 4 year history of bipolar disorder characterized by depressive moods (anhedonia, fatigue, SI, decreased appeitie) and a current manic episode ( that persists despite a 15 day admission and medical treatment. She also has psychotic smyptoms such as paranoia and AH. She is amenable to try [place] and Risperidone. Compliant with medications, significant improvement in eladio and delusions, behavior, outbursts today. Seems clinically ready to be discharged assuming no further outburst or worsening of manic symptoms. Will get [place] level tomorrow morning and discharge tomorrow. - Li2Co3 ER 450mg BID - Li level after 4 half-lives -Discharge 02/27 - Risperidone 2mg BID - Psychotherapy - PRNs: Haldol, Atarax - Precautions: s/a/e - Dispo: home to mom Code Status: Full Code Precautions: On suicide and elopement precautions, q15min checks, daily vital signs Diet: Adult Diet Regular; Information Systems Consultant check, Deliver tray to nursing DVT Prophylaxis: Low risk ambulating at least TID ESocorro Merino 02/26/2022 7:26 AM Side effects, risks, benefits and alternatives of the treatment were discussed with patient. At this time this is the least restrictive option for patient care. Will continue to monitor patient and assess for stabilization during inpatient hospitalization. Cosigned by Don Tarango MD at 02/26/2022 5:05 PM AUTO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 * Plan of Care - Gretta Rodriguez RN - 02/25/2022 7:45 PM CST Problem: Coping: Goal: Ability to identify and develop effective coping behavior will improve Outcome: Progressing Problem: Healthy functioning Goal: Identify healthy coping skills Description: Identify 3 healthy coping skills Outcome: Progressing Problem: Poor anger management Goal: Report/demonstrate decrease in blaming others Outcome: Progressing Problem: Coping: Goal: Ability to identify and develop effective coping behavior will improve Outcome: Progressing Problem: Healthy functioning Goal: Identify healthy coping skills Description: Identify 3 healthy coping skills Outcome: Progressing Problem: Poor anger management Goal: Report/demonstrate decrease in blaming others Outcome: Progressing Goals: Clinical Goals for the Shift: non stated Summary: 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 * Plan of Care - Krystina French RN - 02/25/2022 8:53 AM CST Problem: Coping: Goal: Ability to identify and develop effective coping behavior will improve Outcome: Progressing Problem: Self-Concept: Goal: Level of anxiety will decrease Outcome: Progressing Problem: Poor anger management Goal: Identify triggers of anger Description: Identify 3 things that trigger anger Outcome: Progressing Goal: Report/demonstrate decrease in blaming others Outcome: Progressing Problem: Thoughts of harm to self or others Goal: Report decrease in/absence of self-harm thoughts Outcome: Progressing 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 * Medical Student - Jace Merino - 02/25/2022 7:00 AM CST Psychiatry Progress Note Interval History: Very irritable, yelling about wanting to leave in the milieu. Today insistent on wanting to leave. Says being admitted makes her feel suicidal and that she has learned her lesson and won't come back here. Still thinks other patients may be in a sex trafficking ring but less sure- later denies sex trafficking delusions. Says she is not eating because she is scared to go out in milieu Negative HI, AVH, grandiosity. Feels like her mind is still calm. -Tylenol, Trazodone, Atarax PRN yesterdat - Compliant with medications ([place] and Risperidone) - Total Hours of Sleep: 6.1 Spoke with mom yesterday Medications: Scheduled [START ON 03/04/2022] ARIPiprazole lauroxil, 882 mg, intramuscular, every 4 weeks lithium ER, 450 mg, oral, BID with meals (bkfst, dinner) risperiDONE, 2 mg, sublingual, BID PRN acetaminophen, 650 mg, 650 mg at 02/24/22 2350 haloperidol, 5 mg, 5 mg at 02/23/22 1635 AND LORazepam, 2 mg, 2 mg at 02/23/22 1635 haloperidoL, 5 mg hydrOXYzine, 25 mg, 25 mg at 02/24/22 2350 nicotine polacrilex, 2 mg, 2 mg at 02/24/22 1153 traZODone, 50 mg, 50 mg at 02/24/22 2147 Physical Exam: Vitals: 02/24/22 0813 BP: 131/77 Pulse: 82 Resp: 22 Temp: SpO2: 99% Gen: Patient is in no acute distress Mental Status Examination: Appearance/Behavior: - Appears stated age - Well groomed - Normal psychomotor activity -Good eye contact - Tearful, spontaneously cries - Cooperative Speech: increased volume, increased rate, interrupts, increased amount. Spontaneous. Normal latency Flow of Thought: Circumstantial Content of Thought: - Positive for SI - Still some paranoia but less certain. - Denies AVH today. Mood: Terrible Affect: Labile, tearful Insight: poor Judgment: poor Sensorium: AOx3 Lab/Radiology/Diagnostic Review: Recent Labs Lab Units 02/23/22 0537 SODIUM mmol/L 139 POTASSIUM PLASMA mmol/L 3.7 CHLORIDE mmol/L 103 CO2 mmol/L 27 BUN SERUM mg/dL 9 CREATININE mg/dL 0.68 GLUCOSE mg/dL 111 ANIONGAP mmol/L 9 CALCIUM mg/dL 9.1 Recent Labs Lab Units 02/23/22 0537 WBC K/cumm 9.6 HEMOGLOBIN g/dL 12.6 HEMATOCRIT % 37.3 PLATELETS K/cumm 304 MCV fL 92.6 NEUTROS ABS K/cumm 7.1* Recent Labs Lab Units 02/23/22 0537 BILIRUBIN TOTAL mg/dL 0.3 ALK PHOS Units/L 74 AST Units/L 26 ALT Units/L 25 ALBUMIN g/dL 4.8 I have reviewed the above laboratory results. Imaging Results: No results found. Assessment/Plan PRIMARY DIAGNOSIS: Bipolar affective disorder, current episode manic with psychotic symptoms (CMS/HCC) (HCC) Stephanie has a 4 year history of bipolar disorder characterized by depressive moods (anhedonia, fatigue, SI, decreased appeitie) and a current manic episode ( that persists despite a 15 day admission and medical treatment. She also has psychotic smyptoms such as paranoia and AH. She is amenable to try [place] and Risperidone. Compliant with medications, clinical improvement noted but still with frequent outbursts and irritability. File 21 day but will determine tomorrow if she is clinically ready for discharge or should stay longer. - Li2Co3 ER 450mg BID - Li level after 4 half-lives - Risperidone 2mg BID - Psychotherapy - PRNs: Haldol, Atarax - Precautions: s/a/e - Dispo: home to mom Code Status: Full Code Precautions: On suicide and elopement precautions, q15min checks, daily vital signs Diet: Adult Diet Regular; Information Systems Consultant check, Deliver tray to nursing DVT Prophylaxis: Low risk ambulating at least TID E'Lysse Merino 02/25/2022 7:03 AM Side effects, risks, benefits and alternatives of the treatment were discussed with patient. At this time this is the least restrictive option for patient care. Will continue to monitor patient and assess for stabilization during inpatient hospitalization. Cosigned by Don Tarango MD at 02/26/2022 5:05 PM AUTO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 * Plan of Care - Gretta Rodriguez RN - 02/24/2022 9:15 PM CST Problem: Coping: Goal: Ability to identify and develop effective coping behavior will improve Outcome: Progressing Problem: Lack of Knowledge: Goal: Ability to notify healthcare provider of pain before it becomes unmanageable or unbearable will improve Outcome: Progressing Problem: Sensory: Goal: Pain level will decrease Outcome: Progressing Problem: Coping: Goal: Ability to identify and develop effective coping behavior will improve Outcome: Progressing Problem: Lack of Knowledge: Goal: Ability to notify healthcare provider of pain before it becomes unmanageable or unbearable will improve Outcome: Progressing Problem: Sensory: Goal: Pain level will decrease Outcome: Progressing Goals: Clinical Goals for the Shift: non stated Summary: 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 * Plan of Care - Chanel Steele RN - 02/24/2022 11:25 AM CST Goals: Clinical Goals for the Shift: non stated Summary: Problem: Health Behavior: Goal: Understanding of discharge needs will improve Outcome: Not Progressing Problem: Coping: Goal: Ability to identify and develop effective coping behavior will improve Outcome: Not Progressing Problem: Self-Concept: Goal: Ability to modify response to factors that promote anxiety will improve Outcome: Not Progressing Goal: Level of anxiety will decrease Outcome: Not Progressing Problem: Treatment compliance Goal: Verbalize importance of compliance with medication(s) prescribed Outcome: Not Progressing Problem: Healthy functioning Goal: Identify healthy coping skills Description: Identify 3 healthy coping skills Outcome: Not Progressing Problem: Alteration in thought Goal: Demonstrate controlled behavior related to command hallucinations Outcome: Not Progressing Problem: Poor anger management Goal: Identify triggers of anger Description: Identify 3 things that trigger anger Outcome: Not Progressing Goal: Report/demonstrate decrease in blaming others Outcome: Not Progressing Problem: Thoughts of harm to self or others Goal: Report decrease in/absence of self-harm thoughts Outcome: Not Progressing Goal: Verbalize plan to remain safe when thoughts of self-harm arise Outcome: Not Progressing Problem: Lack of Knowledge: Goal: Knowledge of restraints will improve Description: INTERVENTIONS: 1. Educate patient/caregiver on restraints Outcome: Not Progressing Problem: Safety - Violent/Self-Destructive Restraint Goal: Remains free of injury from restraints (Restraint for Violent/Self- Destructive Behavior) Description: INTERVENTIONS: 1. Determine that de-escalation and other, less restrictive measures have been tried or would not be effective before applying the restraint 2. Identify and document the criteria for restraint 3. Evaluate the patient's condition at the time of restraint application and continue to monitor patient's condition 4. Inform patient/family regarding the reason for restraint/seclusion 5. Q2H: Monitor comfort, nutrition and hydration needs 6. Q15M: Perform safety checks including skin, circulation, sensory, respiratory and psychological status 7. Ensure continuous observation and safety/first aid measures are in place (i.e. Quick release, suction, crash cart, etc.) 8. Identify and implement measures to help patient regain control, assess readiness for release andinitiate progressive release per policy Outcome: Not Progressing Goal: Free from restraints (Restraint for Violent or Self-Destructive Behavior) Description: INTERVENTIONS: 1. Verify that a physician or other LIP has performed a face to face examination within one hour ofrestraint application 2. Assess and document the patient's behavior or symptoms that indicate continued need for restraint, notify LIP and obtain renewal orders as indicated --Q4H for patient age 18 or older --Q2H for patients age 9 through 17 --Q1H for patients age 8 and under 3. Q4h: Verify that an LIP has performed a face to face examination and entered a new order 4. Identify and implement measures to help patient regain control, assess readiness for release andinitiate progressive release per policy Outcome: Not Progressing 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 * Medical Student - Jace Merino - 02/24/2022 7:23 AM CST Psychiatry Progress Note Interval History: Yesterday had incident where pt trying to leave unit, call police, agitation leading to therapeutichold requiring restraints and seclusion -> PRN Haldol and Ativan given -Other patient masturbating which is why she wanted to leave, feels unsafe -Feels like [place] had calmed her mind, says she less extravagant thoughts -Believes that other patients are apart of a sex trafficking ring, are murderers -Wants to be discharged, irritable and labile mood- became tearful when informed she would have to stay a few more days--> requested Atarax PRN -No Internal Med recs - Compliant with medications ([place]) - Total Hours of Sleep: 7.0 Medications: Scheduled [START ON 03/04/2022] ARIPiprazole lauroxil, 882 mg, intramuscular, every 4 weeks lithium ER, 450 mg, oral, BID with meals (bkfst, dinner) nicotine, 1 patch, transdermal, Once PRN acetaminophen, 650 mg haloperidol, 5 mg, 5 mg at 02/23/22 1635 AND LORazepam, 2 mg, 2 mg at 02/23/22 1635 haloperidoL, 5 mg hydrOXYzine, 25 mg, 25 mg at 02/23/22 1419 nicotine polacrilex, 2 mg, 2 mg at 02/23/22 1459 traZODone, 50 mg Physical Exam: Vitals: 02/23/22 0942 BP: 110/61 Pulse: (!) 128 Resp: 16 Temp: SpO2: 99% Gen: Patient is in no acute distress Mental Status Examination: Appearance/Behavior: - Appears stated age - Well groomed - Normal psychomotor activity -Good eye contact - Cooperative Speech: increased volume, increased rate, interrupts, increased amount. Spontaneous. Normal latency Flow of Thought: Circumstantial Content of Thought: Negative for SI, HI, obsessions. - Paranoia, Persecutory delusions: thinks that she is being targeted, delusions that the other patients are a part of a sex trafficking ring. - Denies AH today. Mood: great , labile Affect: Labile, tearful Insight: poor Judgment: poor Sensorium: AOx3 Lab/Radiology/Diagnostic Review: Recent Labs Lab Units 02/23/22 0537 SODIUM mmol/L 139 POTASSIUM PLASMA mmol/L 3.7 CHLORIDE mmol/L 103 CO2 mmol/L 27 BUN SERUM mg/dL 9 CREATININE mg/dL 0.68 GLUCOSE mg/dL 111 ANIONGAP mmol/L 9 CALCIUM mg/dL 9.1 Recent Labs Lab Units 02/23/22 0537 WBC K/cumm 9.6 HEMOGLOBIN g/dL 12.6 HEMATOCRIT % 37.3 PLATELETS K/cumm 304 MCV fL 92.6 NEUTROS ABS K/cumm 7.1* Recent Labs Lab Units 02/23/22 0537 BILIRUBIN TOTAL mg/dL 0.3 ALK PHOS Units/L 74 AST Units/L 26 ALT Units/L 25 ALBUMIN g/dL 4.8 I have reviewed the above laboratory results. Imaging Results: No results found. Assessment/Plan PRIMARY DIAGNOSIS: Bipolar affective disorder, current episode manic with psychotic symptoms (CMS/HCC) (HCC) tSephanie has a 4 year history of bipolar disorder characterized by depressive moods (anhedonia, fatigue, SI, decreased appeitie) and a current manic episode ( that persists despite a 15 day admission and medical treatment. She also has psychotic smyptoms such as paranoia and AH. She is amenable to try [place] and Risperidone. - Li2Co3 ER 450mg BID - Li level after 4 half-lives - Risperidone 2mg BID - Psychotherapy - PRNs: Haldol, Atarax - Precautions: s/a/e - Dispo: home to mom Code Status: Full Code Precautions: On suicide and elopement precautions, q15min checks, daily vital signs Diet: Adult Diet Regular; Information Systems Consultant check, Deliver tray to nursing DVT Prophylaxis: Low risk ambulating at least TID Jace Merino 02/24/2022 7:23 AM Side effects, risks, benefits and alternatives of the treatment were discussed with patient. At this time this is the least restrictive option for patient care. Will continue to monitor patient and assess for stabilization during inpatient hospitalization. Cosigned by Don Tarango MD at 02/25/2022 3:19 AM AUTO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 * Plan of Care - Rebecca Guardado RN - 02/23/2022 9:59 PM CST Problem: Coping: Goal: Ability to identify and develop effective coping behavior will improve Outcome: Not Progressing Problem: Self-Concept: Goal: Level of anxiety will decrease Outcome: Not Progressing Problem: Treatment compliance Goal: Verbalize importance of compliance with medication(s) prescribed Outcome: Not Progressing Problem: Healthy functioning Goal: Identify healthy coping skills Description: Identify 3 healthy coping skills Outcome: Not Progressing Goals: Clinical Goals for the Shift: pt sleeping Summary: see nursing note 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 * Assessment & Plan Note - Mikey Nunes MD - 02/23/2022 5:20 PM AUTO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 Associated Problem(s): Bipolar affective disorder type 1, current episode manic, severe, with psychotic symptoms (Resolved 12/12/2023) As per Psychiatry Team 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 * Assessment & Plan Note - Mikey Nunes MD - 02/23/2022 5:19 PM AUTO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 Associated Problem(s): Cannabis dependence (HCC) (Resolved 12/12/2023) As per Psychiatry Team 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 * Plan of Care - Don Tarango MD - 02/23/2022 3:23 PM CST Psychiatry Inpatient Certification Date: 02/23/2022 Time: 3:23 PM INITIAL CERTIFICATION: The patient requires active inpatient psychiatric services/treatment. Due to the patient's clinicalcondition, their treatment will require intensive services that can only be provided in an inpatient hospital setting. The patient requires on a daily basis, active treatment furnished directly by orrequiring the supervision of inpatient psychiatric facility personnel.The patient cannot benefit from a less intensive form of treatment at this time due to: Patient has failed outpatient management.The patient requires active inpatient psychiatric services/treatment for the following psychiatric reasons:BPAD1 manic psychostic. The patient will require active inpatient psychiatric services/treatment for an estimated period of: days/week. It is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 grandiosity, delusions, disorganized thought, decreased sleep, pressured speech, hypersexuality, impulsive behavior consistent with eladio. Despite compliance with medications from previous hospitalization, her manic behavior is still causing marked impairment in functioning to necessitate hospitalization. She is amenable to try [place]. - [place] [facility] 450mg BID - 2nd dose of Aristada 03/04/22 - Therapeutic milieu - Precautions: s/a/e - PRNs: Haldol, Ativan, Atarax, Trazodone - Involuntary admission - SW intervention - Disposition: Home Code Status: Prior Diet: Adult Diet Regular; Information Systems Consultant check, Deliver tray to nursing DVT Prophylaxis: None; ambulating TID+ Jace Merino 02/23/2022 12:48 PM Cosigned by Don Tarango MD at 02/24/2022 12:18 AM AUTO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 documented in this encounter Plan of Treatment Not on file documented as of this encounter Procedures Procedure Name Priority Date/Time Associated Diagnosis Comments LITHIUM LEVEL Timed 02/27/2022 9:17 AM AUTO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 POCT HCG, URINE Routine 02/23/2022 6:46 AM AUTO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 EGFR STAT 02/23/2022 5:37 AM AUTO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 DIFFERENTIAL AUTO STAT 02/23/2022 5:3 7 AM AUTO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 URINALYSIS AND REFLEX TO MICROSCOPIC AND CULTURE STAT 02/23/2022 5:37 AM AUTO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 RESPIRATORY PATHOGEN PANEL Routine 02/23/2022 5:37 AM AUTO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 CBC WITH AUTO DIFFERENTIAL STAT 02/23/2022 5:37 AM AUTO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 DRUGS OF ABUSE SCREEN, URINE WITHOUT CONFIRMATION STAT 02/23/2022 5:37 AM AUTO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 URINALYSIS, MICROSCOPIC ONLY STAT 02/23/2022 5:37 AM AUTO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 ETHANOL STAT 02/23/2022 5:37 AM AUTO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 COMPREHENSIVE METABOLIC PANEL STAT 02/23/2022 5:37 AM AUTO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 documented in this encounter Results * (ABNORMAL) [place] level (02/27/2022 9:17 AM AUTO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) [place] 0.5(L) 0.6 - 1.2 mmol/L [facility] Blood 02/27/2022 9:17 AM AUTO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 02/27/2022 10:49 AM AUTO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 Narrative [facility] - 02/27/2022 11:34 AM AUTO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 Please make sure the sample is transported to the lab, transport has been an issue previously, thanks!. Sample should be drawn before morning dose of Li. Patient will discharge tomorrow at some time after level is drawn. us Don Botello MD LAB BLOOD ORDERABLES Fi nal Result [facility] Department [place] [address] * POCT hCG, urine (02/23/2022 6:46 AM AUTO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) HCG, ur, POC Negative Lot Number [id number] QC Backgroud Clear Acceptable QC Control Line Acceptable Urine 02/23/2022 6:46 AM AUTO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 us Simran Simon NP POINT OF CARE TEST ORDERA BLES Final Result * eGFR (02/23/2022 5:37 AM AUTO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) eGFR >90 90 - 130 mL/min/1. 73 m2 [facility] Comment: Interpretive Data Reference Interval Normal ?>/= 90 mL/min/1.73m2 Mildly decreased* ? 60 - 89 mL/min/1.73m2 Mildly to moderately decreased ?45 - 59 mL/min/1.73m2 Moderately to severely decreased ??30 - 44 mL/min/1.73m2 Severely decreased ?15 - 29 mL/min/1.73m2 Kidney Failure ?< 15 ??mL/min/1.73m2 *Relative to young adult level Estimated glomerular filtration rate is determined by the 2020 CKD-EPI equation recommended by the National Kidney [employer] (A Unifying Approach to GFR Estimation: Recommendations of the NKF-ASK Task Force on Reassessing the Inclusion of Race in Diagnosing Kidney Disease, JASN 202). The CKD-EPI equation should not be used for patients with unstable renal function and has not been validated in children and those over 70. Current interpretive data was last reviewed 2021. Blood 02/23/2022 5:37 AM AUTO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 02/23/2022 5:52 AM AUTO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 Simran Simon GATE SHEAR OPERATOR LAB BLOOD ORDERABLES Margie l Result Performing Organization Address [facility] de Phone Number [facility] [place] [address] * (ABNORMAL) Urinalysis, microscopic only (02/23/2022 5:37 AM AUTO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) Pathologist [facility] [place] WBC, ur 0-5 0 - 5 /HPF [facility] RBC, ur 0-2 0 - 2 /HPF [facility] Epithelial cells, squamous, ur 1-5 0 - 5 /HPF [facility] Bacteria, ur 2+(A) [facility] Mucous, ur Present(A) [facility] Culture Reflex Comment Reflex conditions for urine culture (WBC >10) not met. [facility] Urine 02/23/2022 5:37 AM AUTO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 02/23/2022 5:48 AM AUTO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 Simran Simon GATE SHEAR OPERATOR LAB URINE ORDERABLES Margie l Result Performing Organization Address [facility] de Phone Number [facility] [place] [address] * (ABNORMAL) Differential, auto (02/23/2022 5:37 AM AUTO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) Neutrophil abs 7.1(H) 1.7 - 6.5 K/cumm [facility] Imm gran abs 0.1 0.0 - 0.1 K/cumm [facility] Lymphocyte abs 1.6 0.8 - 3.3 K/cumm [facility] Monocyte abs 0.8 0.2 - 0.8 K/cumm [facility] Eosinophil abs 0.1 0.0 - 0.5 K/cumm [facility] Basophil abs 0.0 0.0 - 0.1 K/cumm [facility] Neutrophil pct 73.9 % [facility] Comment: Interpretive Data Percent cell count reference ranges are not reported, since discordance with absolute values may lead to misinterpretation of CBC data. Current Interpretive Data was last revised on 2017. Imm gran pct 0.6 % [facility] Comment: Interpretive Data Percent cell count reference ranges are not reported, since discordance with absolute values may lead to misinterpretation of CBC data. Current Interpretive Data was last revised on 2017. Lymphocyte pct 16.3 % [facility] Comment: Interpretive Data Percent cell count reference ranges are not reported, since discordance with absolute values may lead to misinterpretation of CBC data. Current Interpretive Data was last revised on 2017. Monocyte pct 8.0 % [facility] Comment: Interpretive Data Percent cell count reference ranges are not reported, since discordance with absolute values may lead to misinterpretation of CBC data. Current Interpretive Data was last revised on 2017. Eosinophil pct 0.9 % [facility] Comment: Interpretive Data Percent cell count reference ranges are not reported, since discordance with absolute values may lead to misinterpretation of CBC data. Current Interpretive Data was last revised on 2017. Basophil pct 0.3 % [facility] Comment: Interpretive Data Percent cell count reference ranges are not reported, since discordance with absolute values may lead to misinterpretation of CBC data. Current Interpretive Data was last revised on 2017. Blood 02/23/2022 5:37 AM AUTO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 02/23/2022 5:53 AM AUTO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 Simran Simon NP LAB BLOOD ORDERABLES Margie hendrix Result [facility] Department [place] [address] * Respiratory pathogen panel Nasopharyngeal (02/23/2022 5:37 AM AUTO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) Influenza A RNA Not Detected Not Detected [facility] Influenza B RNA Not Detected Not Detected [facility] RSV RNA Not Detected Not Detected [facility] COVID-19 RNA Not Detected Not Detected [facility] Coronavirus 229E RNA Not Detected Not Detected [facility] Coronavirus HKU1 RNA Not Detected Not Detected [facility] Coronavirus NL63 RNA Not Detected Not Detected [facility] Coronavirus OC43 RNA Not Detected Not Detected [facility] Adenovirus DNA Not Detected Not Detected [facility] Metapneumovirus RNA Not Detected Not Detected [facility] Rhinovirus/Enterov irus RNA Not Detected Not Detected [facility] Parainfluenza 1 RNA Not Detected Not Detected [facility] Parainfluenza 2 RNA Not Detected Not Detected [facility] Parainfluenza 3 RNA Not Detected Not Detected [facility] Parainfluenza 4 RNA Not Detected Not Detected [facility] B. pertussis DNA Not Detected Not Detected [facility] B. parapertussis DNA Not Detected Not Detected [facility] C. pneumoniae DNA Not Detected Not Detected [facility] M. pneumoniae DNA Not Detected Not Detected [facility] Nasopharyngeal 02/23/2022 5 :37 AM AUTO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 02/23/2022 5:53 AM AUTO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 Narrative [facility] - 02/23/2022 6:48 AM AUTO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 Is the Patient experiencing symptoms consistent with COVID?->No Reason for testing?->Screening prior to admission to [facility] unit Surveillance testing for transplant patient?->No ??Interpretive Data The [employer]RON[employer] FilmArray Respiratory Panel (RP2.1) assay is a multiplexed real-time PCR based nucleic acid test capable of simultaneous qualitative detection and identification of multiple respiratory viral and bacterial nucleic acids, including SARS Coronavirus 2 (the causative agent of COVID-19). The following bacteria, viruses and virus subtypes can be identified using the FilmArray RP2.1 assay: Bordetella pertussis, Bordetella parapertussis, Chlamydia pneumoniae, Mycoplasma pneumoniae, Adenovirus, SARS Coronavirus 2, seasonal coronaviruses (Coronavirus HKU1, Coronavirus NL63, Coronavirus 229E, and Coronavirus OC43), Influenza A, Influenza A subtype H1, Influenza A subtype H3, Influenza A subtype 2009 H1, Influenza B, Metapneumovirus, Parainfluenza 1, Parainfluenza 2, Parainfluenza 3, Parainfluenza 4, RSV, Rhinovirus/Enterovirus. Due to the genetic similarity between human Rhinovirus and Enterovirus, the FilmArray RP2.1 assay cannot reliably differentiate them. Coronavirus OC43 may cross-react with some isolates of Coronavirus HKU1. ??A dual positive result may be due to cross-reactivity or may indicate a co-infection. The detection and identification of specific viral and bacterial nucleic acids from individuals exhibiting signs and symptoms of a respiratory infection aids in the diagnosis of respiratory infection if used in conjunction with other clinical and epidemiological information. ??The results of this test should not be used as the sole basis for diagnosis, treatment, or other management decisions. ??Negative results in the setting of a respiratory illness may be due to infection with pathogens that are not detected by this test. ??Positive results do not rule out infection/co-infection with other organisms. ??The agent(s) detected by the FilmArray RP2.1 may not be the definite cause of disease. ??Additional testing (lab, imaging, etc.) may be necessary when evaluating a patient with possible respiratory tract infection. The FilmArray RP2.1 assay has FDA clearance for testing of GATE SHEAR OPERATOR swabs. ??The performance of additional specimen types has been assessed by the performing laboratory. ??The performance characteristics of this assay have been determined by [facility]ious Disease [facility]. Current interpretive data was last revised on 22. us Simran Simon GATE SHEAR OPERATOR LAB MICROBIOLOGY - GENERA L ORDERABLES Final Result [facility] Department [place] [address] * (ABNORMAL) Urinalysis reflex to microscopic and culture Urine (02/23/2022 5:37 AM AUTO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) Color, ur Straw Yellow [facility] Clarity, ur Clear Clear [facility] Specific gravity, ur 1.011 1.003 - 1.030 [facility] pH, urine 6.5 [facility] Protein, ur ql Negative Negative [facility] Glucose, ur ql Negative Negative [facility] Ketones, ur Negative Negative [facility] Bilirubin, ur Negative Negative [facility] Blood, ur Negative Negative [facility] Urobilinogen, ur <2.0 <2.0 mg/dL [facility] Nitrite, ur Negative Negative [facility] Leukocyte esterase, ur Trace(A) Negative [facility] UA reflex comment Reflex to microscopic UA will be performed. [facility] Urine 02/23/2022 5:37 AM AUTO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 02/23/2022 5:48 AM AUTO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 Narrative [facility] - 02/23/2022 5:57 AM AUTO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 ?? Urine pH is affected by diet, medications, systemic acid-base disturbances, and renal tubular function. ??pH may affect urinary stone formation. ??For example, urine pH below 6.0 may help reduce the tendency for calcium phosphate stones and pH greater than 6.0 may reduce the tendency for uric acid stone formation. Source: [facility] [employer]. Last revised 04-07-2017 us Simran Simon NP LAB MICROBIOLOGY - GENERA L ORDERABLES Final Result [facility] Department [place] [address] * (ABNORMAL) Drugs of Abuse Screen, Urine without Confirmation (02/23/2022 5:37 AM AUTO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) Amphetamine, ur Not Detected CutOff 500ng/mL [facility] Comment: Interpretive Data - Amphetamines: ??Samples containing greater than 500 ng/mL d-methamphetamine ??or other cross-reacting amphetamine compounds are reported as positive. ??Amphetamine immunoassays are subject to significant false positive rates due to cross-reactivity of non-amphetamine drugs. Current Interpretive Data was last reviewed 2018. Barbiturates, ur Not Detected CutOff 200ng/mL [facility] Comment: Interpretive Data - Barbiturates: ??Samples containing greater than 200 ng/mL secobarbital or other cross-reacting barbiturate compounds are reported as positive. ??False positive and false negative results are possible. Current Interpretive Data was last reviewed 2018. Benzodiazepines, ur Not Detected CutOff 100ng/mL [facility] Comment: Interpretive Data - Benzodiazepines: ??Samples containing greater than 100 ng/mL nordiazepam or other cross-reacting compounds are reported as positive. ?? False positive and false negative results are possible. ?? Current Interpretive Data was last reviewed 2018. Cannabinoids, ur Detected(A) CutOff 50 ng/mL [facility] Cocaine, ur Not Detected CutOff 150ng/mL [facility] Comment: Interpretive Data - Cocaine: ??Samples containing greater than 150 ng/mL benzoylecgonine or other cross-reacting compounds are reported as positive. False positive and false negative results are possible. Current Interpretive Data was last reviewed 2018. Fentanyl, Ur Not Detected Cutoff 1 ng/mL [facility] Comment: Interpretive Data - Fentanyls: ??Samples containing greater than 1 ng/mL fentanyl or other cross-reacting fentanyl compounds are reported as detected. ??False positive and false negative results are possible. Current Interpretive Data was last reviewed 2018. Methadone, ur Not Detected CutOff 300ng/mL [facility] Comment: Interpretive Data - Methadone: ??Samples containing greater than 300 ng/mL d,l-methadone or other cross-reacting compounds are reported as positive. ??False positive and false negative results are possible. Current Interpretive Data was last reviewed 2018. Opiates, ur Not Detected CutOff 300ng/mL [facility] Comment: Interpretive Data - Opiates: ??Samples containing greater than 300 ng/mL morphine or other cross-reacting compounds are reported as positive. ??False positive and false negative results are possible. Current Interpretive Data was last reviewed 2018. Oxycodone, ur Not Detected CutOff 100ng/mL [facility] Comment: Interpretive Data - Oxycodone: ??Samples containing greater than 100 ng/mL oxycodone or other cross-reacting compounds are reported as positive. ??False positive and false negative results are possible. ?? Current Interpretive Data was last reviewed 2018. Phencyclidine, ur Not Detected CutOff 25 ng/mL [facility] Comment: Interpretive Data - Phencyclidine: ??Samples containing greater than 25 ng/mL phencyclidine or other cross-reacting compounds are reported as positive. ??False positive and false negative results are possible. ?? Current Interpretive Data was last reviewed 2018. Urine Creatinine 71 mg/dL [facility] Comment: Interpretive Data Urine Creatinine: < 10 mg/dL is extremely dilute = or > 10 but < 20 mg/dL is dilute = or > 20 mg/dL is normal Current Interpretive Data was last revised on 2017. Urine 02/23/2022 5:37 AM AUTO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 02/23/2022 5:52 AM AUTO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 Narrative [facility] - 02/23/2022 6:42 AM AUTO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 Drug of Abuse screening is performed by immunoassay for medical purposes only. ??This is not to be used for Pain Management purposes. Simran Simon NP LAB URINE ORDERABLES Margie l Result Performing Organization Address [facility] de Phone Number [facility] [place] [address] * Ethanol (02/23/2022 5:37 AM AUTO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) [facility] Ethanol <10 <=10 mg/dL [facility] Comment: Interpretive Data Legal limit of intoxication > or = 80 mg/dL Levels > or = 400 mg/dL are potentially TOXIC. Current interpretive data was last revised on 2018. Blood 02/23/2022 5:3 7 AM AUTO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 02/23/2022 5:52 AM AUTO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 Simran Simon NP LAB BLOOD ORDERABLES Margie l Result Performing Organization Address [facility] de Phone Number [facility] [place] [place] [address] * Comprehensive metabolic panel (02/23/2022 5:37 AM AUTO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) Pathologist [facility] [place] Sodium 139 135 - 145 mmol/L [facility] Potassium, pl 3.7 3.3 - 4.9 mmol/L [facility] Chloride 103 97 - 110 mmol/L [facility] CO2 27 22 - 32 mmol/L [facility] Anion gap 9 2 - 15 mmol/L [facility] BUN 9 8 - 25 mg/dL [facility] Creatinine 0.68 0.60 - 1.10 mg/dL [facility] Glucose 111 70 - 199 mg/dL [facility] Comment: Interpretive Data Fasting glucose >/= 126 mg/dl is diagnostic for diabetes. ?? Fasting is defined as no caloric intake for at least 8 hours. Fasting glucose between 100 mg/dl to 125 mg/dl is diagnostic of prediabetes. In a patient with classic symptoms of hyperglycemia or hyperglycemic crisis, a random glucose >/= 200 mg/dl is diagnostic for diabetes. In the absence of unequivocal hyperglycemia, results should be confirmed by repeat testing. The classification and Diagnosis of Diabetes Diabetes Care 2017;40 (Suppl. 1):S11. Current interpretive data was last revised 2017. Calcium 9.1 8.5 - 10.3 mg/dL [facility] Bilirubin, total 0.3 0.1 - 1.2 mg/dL [facility] Protein, pl 7.5 6.5 - 8.5 g/dL [facility] Albumin 4.8 3.5 - 5.0 g/dL [facility] Alk phos 74 40 - 130 Units/L [facility] ALT 25 7 - 45 Units/L [facility] AST 26 10 - 45 Units/L [facility] Blood 02/23/2022 5:37 AM AUTO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 02/23/2022 5:52 AM AUTO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 Simran Simon NP LAB BLOOD ORDERABLES Margie hendrix Result [facility] Department [place] [address] * (ABNORMAL) CBC with auto differential (02/23/2022 5:37 AM AUTO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) Pathologist [facility] [place] WBC 9.6 3.8 - 9.9 K/cumm [facility] Hgb 12.6 11.9 - 15.5 g/dL [facility] Hct 37.3 35.6 - 45.5 % [facility] Plt 304 150 - 400 K/cumm [facility] MPV 8.7(L) 9.1 - 12.3 fL [facility] RBC 4.03 3.90 - 5.20 M/cumm [facility] MCV 92.6 81.3 - 96.4 fL [facility] MCH 31.3 27.1 - 33.3 pg [facility] MCHC 33.8 32.3 - 35.7 g/dL [facility] RDW CV 12.1 11.1 - 14.9 % [facility] RDW SD 41.6 35.7 - 48.1 fL [facility] NRBC abs 0.00 0.00 - 0.01 K/cumm [facility] Blood 02/23/2022 5:37 AM AUTO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 02/23/2022 5:53 AM AUTO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 us Simran Simon NP LAB BLOOD ORDERABLES Margie hendrix Result [facility] Department [place] [address] documented in this encounter Visit Diagnoses Diagnosis Bipolar affective disorder type 1, current episode manic, severe, with psychotic symptoms- Primary Bipolar affective disorder, remission status unspecified (HCC) Delusion (HCC) Unspecified paranoid state Routine general medical examination at a health care facility documented in this encounter Admitting Diagnoses Diagnosis Bipolar affective disorder, remission status unspecified (HCC) documented in this encounter Administered Medications Inactive Administered Medications - up to 3 most recent administrations Medication Order MAR Action Action Date Dose Rate Site acetaminophen (TYLENOL) tablet 650 mg 650 mg, oral, Every 4 hours PRN, 1st line for pain, Starting on Tue02/23/22 at 1254, Indications: PainIndications:Pain Given 02/27/2022 5:43 AM AUTO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 650 mg Given 02/26/2022 3:50 PM AUTO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 650 mg Given 02/26/2022 10:23 AM AUTO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 650 mg haloperidol (HALDOL) injection 5 mg 5 mg, intramuscular, Every 4 hours PRN, other, clinically emergent severe agitation, Starting on Tue02/23/22 at 1255, If administered IV push, administer over 5 min for adults, Indications: AgitationIndications:Agitation Given 02/23/2022 4:35 PM AUTO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 5 mg Right Deltoid haloperidoL (HALDOL) tablet 5 mg 5 mg, oral, Every 6 hours PRN, agitation, Starting on Tue02/23/22 at 1255, Indications: AgitationIndications:Agitation hydrOXYzine (ATARAX) tablet 25 mg 25 mg, oral, Every 4 hours PRN, anxiety, Starting on Tue02/23/22 at 1255 Given 02/27/2022 10:59 AM AUTO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 25 mg Given 02/27/2022 3:36 AM AUTO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 25 mg Given 02/26/2022 10:29 PM AUTO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 25 mg lithium ER (ESKALITH) extended release tablet 450 mg 450 mg, oral, 2 times daily with meals (bkfst, dinner), First dose on Tue02/23/22 at 1330, For 8 doses Given 02/26/2022 5:27 PM AUTO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 450 mg Given 02/26/2022 8:19 AM AUTO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 450 mg Given 02/25/2022 5:22 PM AUTO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 450 mg lithium ER (ESKALITH) extended release tablet 900 mg 900 mg, oral, Daily, First dose on Tue02/27/22 at 0900 Given 02/27/2022 9:29 AM AUTO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 900 mg LORazepam (ATIVAN) injection 2 mg 2 mg, intramuscular, Every 4 hours PRN, other, clinically emergent severe agitation, Starting on Tue02/23/22 at 1255, For IV administration, dilute with equal volume of 0.9% sodium chloride to a final concentration of 1 mg/mL. Do not exceed a rate of 2 mg/minute, Indications: AgitationIndications:Kellee tation Given 02/23/2022 4:35 PM AUTO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 2 mg Right Anterior Thigh nicotine (NICODERM CQ) 14 mg patch 24 hour 1 patch 1 patch, transdermal, Administer over 24 Hours, Once, On Tue02/23/22 at 0843, For 1 dose, Apply a new patch every 24 hours to a clean, dry, hairless site on the upper arm or hip. Rotate site. Medication Applied 02/23/2022 8:52 AM AUTO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 1 patch Left Shoulder nicotine polacrilex (NICORETTE) gum 2 mg 2 mg, mouth/throat, Every 2 hours PRN, nicotine withdrawal symptoms, Starting on Tue02/23/22 at 1450, Instruct patients to chew into gum and then place between the cheek and gum to enhance absorption. Given 02/27/2022 12:43 AM AUTO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 2 mg Given 02/26/2022 8:46 PM AUTO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 2 mg Given 02/26/2022 6:09 PM AUTO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 2 mg risperiDONE (RisperDAL M-TABS) disintegrating tablet 2 mg 2 mg, sublingual, 2 times daily, First dose on Tue02/24/22 at 1030, For 6 doses Given 02/26/2022 8:17 PM AUTO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 2 mg Given 02/26/2022 8:18 AM AUTO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 2 mg Given 02/25/2022 8:24 PM AUTO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 2 mg risperiDONE (RisperDAL M-TABS) disintegrating tablet 2 mg 2 mg, sublingual, Nightly, First dose on 02/27/22 at 2100 traZODone (DESYREL) tablet 50 mg 50 mg, oral, Nightly PRN, sleep, Starting on Tue02/23/22 at 1255 Given 02/26/2022 9:58 PM AUTO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 50 mg Given 02/25/2022 8:25 PM AUTO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 50 mg Given 02/24/2022 9:47 PM AUTO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 50 mg documented in this encounter Discontinued Medications Medication Sig Discontinue Reason Start Date End Da te nicotine polacrilex (NICORETTE) 2 mg gumIndications:Smoking Cessation Chew 1 each (2 mg total) as needed for smoking cessation Reorder 02/26/2022 02/26/2022 lithium ER (ESKALITH) 450 mg CR tabletIndications:Bipola r Disorder in Remission Take 2 tablets (900 mg total) by mouth daily Reorder 02/26/2022 02/26/2022 risperiDONE (RisperDAL M-TABS) 2 mg disintegrating tabletIndications:Bipola r Disorder in Remission Take 2 tablets (4 mg total) by mouth nightly Reorder 02/26/2022 02/26/2022 ARIPiprazole lauroxil (ARISTADA) 882 mg/3.2 mL suspension,extended rel syringIndications:Schizo phrenia Inject 3.2 mL (882 mg total) into the muscle as instructed every 30 (thirty) days Stop Taking at Discharge 03/05/2022 02/27/2022 chlorproMAZINE (THORAZINE) 100 mg tabletIndications:Intrac table Hiccups,psychotic disorder Take 1 tablet (100 mg total) by mouth 3 (three) times a day Stop Taking at Discharge 02/15/2022 02/27/2022 nicotine (NICODERM CQ) 14 mgIndications:Smoking Cessation Place 1 patch on the skin daily Stop Taking at Discharge 02/16/2022 02/27/2022 traZODone (DESYREL) 100 mg tabletIndications:insomn ia associated with depression Take 1 tablet (100 mg total) by mouth nightly as needed for sleep Stop Taking at Discharge 02/15/2022 02/27/2022 documented as of this encounter Active and Recently Administered Medications Times are shown in AUTO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. Scheduled Medication Order 02/25/2022 02/26/2022 02/27/2022 lithium ER (ESKALITH) extended release tablet 450 mg (COMPLETED) 450 mg, oral, 2 times daily with meals (bkfst, dinner), First dose on Tue02/23/22 at 1330, For 8 doses 0747 (Given - Provider: Krystina French RN)1722 (Given - Provider: Krystina French RN) 0819 (Given - Provider: Chanel Steele, SAGAR)1727 (Given - Provider: Chanel Steele, SAGAR) lithium ER (ESKALITH) extended release tablet 900 mg 900 mg, oral, Daily, First dose on Tue02/27/22 at 0900 0929 (Given - Provider: Emerald Alvarado RN) risperiDONE (RisperDAL M-TABS) disintegrating tablet 2 mg (COMPLETED) 2 mg, sublingual, 2 times daily, First dose on Tue02/24/22 at 1030, For 6 doses 0747 (Given - Provider: Krystina French RN)202 (Given - Provider: Gretta Rodriguez RN) 0818 (Given - Provider: Chanel Steele RN)2017 (Given - Provider: Gretta Rodriguez RN) risperiDONE (RisperDAL M-TABS) disintegrating tablet 2 mg 2 mg, sublingual, Nightly, First dose on Tue02/27/22 at 2100 PRN Medication Order 02/25/2022 02/26/2022 02/27/2022 acetaminophen (TYLENOL) tablet 650 mg 650 mg, oral, Every 4 hours PRN, 1st line for pain, Starting on Tue02/23/22 at 1254, Indications: Pain 1151 (Given - Provider: Krystina French RN)2326 (Given - Provider: Gretta Rodriguez RN)2327 (Not Given - Provider: Gretta Rodriguez RN - Reason: Other - Comment: duplicate) 1023 (Given - Provider: Chanel Steele RN)1550 (Given - Provider: Chanel Steele RN)1605 (Canceled Entry - Provider: Chanel Steele RN) 0543 (Given - Provider: Gretel Becerra RN) haloperidol (HALDOL) injection 5 mg(Linked Group 1) 5 mg, intramuscular, Every 4 hours PRN, other, clinically emergent severe agitation, Starting on Tue02/23/22 at 1255, If administered IV push, administer over 5 min for adults, Indications: Agitation haloperidoL (HALDOL) tablet 5 mg 5 mg, oral, Every 6 hours PRN, agitation, Starting on Tue02/23/22 at 1255, Indications: Agitation hydrOXYzine (ATARAX) tablet 25 mg 25 mg, oral, Every 4 hours PRN, anxiety, Starting on Tue02/23/22 at 1255 0747 (Given - Provider: Krystina French RN) 0237 (Given - Provider: Gretta Rodriguez RN)0819 (Given - Provider: Chanel Steele RN)1304 (Given - Provider: Chanel Steele RN)1727 (Given - Provider: Chanel Steele RN)2229 (Given - Provider: Gretta Rodriguez RN) 0336 (Given - Provider: Gretel Becerra RN)1059 (Given - Provider: Emerald Alvarado RN) LORazepam (ATIVAN) injection 2 mg(Linked Group 1) 2 mg, intramuscular, Every 4 hours PRN, other, clinically emergent severe agitation, Starting on Tue02/23/22 at 1255, For IV administration, dilute with equal volume of 0.9% sodium chloride to a final concentration of 1 mg/mL. Do not exceed a rate of 2 mg/minute, Indications: Agitation nicotine polacrilex (NICORETTE) gum 2 mg 2 mg, mouth/throat, Every 2 hours PRN, nicotine withdrawal symptoms, Starting on Tue02/23/22 at 1450, Instruct patients to chew into gum and then place between the cheek and gum to enhance absorption. 1750 (Given - Provider: Krystina French RN) 0133 (Given - Provider: Gretta Rodriguez RN)0134 (Not Given - Provider: Gretta Rodriguez RN - Reason: Other - Comment: duplicate)0819 (Given - Provider: Chanel Steele RN)1023 (Given - Provider: Chanel Steele RN)1304 (Given - Provider: Chanel Steele RN)1550 (Given - Provider: Chanel Steele RN)1552 (Canceled Entry - Provider: Chanel Steele RN)1809 (Given - Provider: Chanel Steele RN)2046 (Given - Provider: Gretta Rodriguez RN)2200 (Not Given - Provider: Gretta Rodriguez RN - Reason: Other - Comment: duplicate) 0043 (Given - Provider: Gretta Rodriguez RN) traZODone (DESYREL) tablet 50 mg 50 mg, oral, Nightly PRN, sleep, Starting on Tue02/23/22 at 1255 2024 (Given - Provider: Gretta Rodriguez RN) 215 (Given - Provider: Gretta Rodriguez RN) Linked Groups Order Group 1: haloperidol (HALDOL) injection 5 mgJump to med 5 mg, intramuscular, Every 4 hours PRN, other, clinically emergent severe agitation, Starting on Tue02/23/22 at 1255, If administered IV push, administer over 5 min for adults, Indications: Agitation And LORazepam (ATIVAN) injection 2 mgJump to med 2 mg, intramuscular, Every 4 hours PRN, other, clinically emergent severe agitation, Starting on Tue02/23/22 at 1255, For IV administration, dilute with equal volume of 0.9% sodium chloride to a final concentration of 1 mg/mL. Do not exceed a rate of 2 mg/minute, Indications: Agitation documented in this encounter Orders Medications Ordered That Jose ht Not Have Been Administered Count Last Ordered Date First Ordered Date risperiDONE (RisperDAL M-TAB S) disintegrating tablet 2 mg 1 02/26/2022 ARIPiprazole lauroxil (ARIST ADA) intramuscular syringe 882 mg 1 02/23/2022 haloperidoL (HALDOL) tablet 5 mg 1 02/24/20 LORazepam (ATIVAN) tablet 0.5 mg 1 02/24/20 Consult Count Last Ordered Date First Orde red Date IP CONSULT TO PSYCHIATRY 1 02/23/2022 Admission Count Last Ordered Date First Orde red Date ADMIT TO INPATIENT 1 02/23/2022 Discharge Count Last Ordered Date First Orde red Date DISCHARGE PATIENT 1 02/26/2022 CORE MEASURES Count Last Ordered Date First Ord ered Date REASON FOR NO VTE PROPHYLAXIS AT ADMISSION 1 02/23/2022 documented in this encounter Additional Health Concerns Infection Onset Date Last Indicated Resolved Time Exposure, COVID-19 Comment:Patient exposed to known positive 02/23/22. Must remain on precautions x 10 days. Negative testing does not negate need for precautions. Monitor for s/s. 02/24/22. Padminiterrence Couch. 02/23/2022 02/24/2022 03/05/2022 3:05 AM AUTO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 documented as of this encounter Care Teams Surveyor Helper Relationship Specialty Start Date End Date Marlin Contreras MD PCP - General 04/07/17 10/09/23 documented as of this encounter
--- OUTSIDE RECORDS SUMMARY | 2024-03-25 18:42 | XMS_ITS | Encounter Summary ---
Author Organization [facility] Healthcare Address [address] [place] [address] Care Team Providers Care Power Sweeper Operator Name Role Phone Marlin Contreras MD Primary Care Provider [phone] Bettie Cabezas MD Unavailable [phone] Reason for Visit * Reason Onset Date Comments Med Management 06/01/2022 Follow-up 06/02/2022 Encounter Details Date Type Department Care Team (Late st Contact Info) Description 06/01/2022 Telephone [facility]iatry [facility] [address] [facility] [address] [place] [address] Bettie Cabezas MD [address] [place] [address] Med Management; Follow-up Social History Tobacco Use Types Packs/Day [...] often do you attend chur ch or rastafarian services? Never 02/23/2022 Do you belong to any clubs o r organizations such as orthodoxy groups, unions, fraternal or athletic groups, or [...] staff should administer the PHQ-9) 1 02/23/2022 [facility] of Occupat ional Health - Occupational Stress [...] in a assisted (including now)? No 02/23/2022 Comments Unknown Sex and Gender Information Value Date Recorded Sex Assigned at Not on file Legal Sex Female 12:29 PM TRUCK SALES MANAGER Gender Identity Not on file Sexual Orientation Not on file documented as of this encounter Miscellaneous Notes * Telephone Encounter - Riana Guidry - 06/02/2022 1:07 PM CST Patient called back. Message was read and she voiced understanding. Riana K SALES MANAGER * Telephone Encounter - Emily Dupont MD - 06/01/2022 12:39 PM TRUCK SALES MANAGER Attempted to call patient, no answer. Latuda does not come in 100 mg capsules. Per chart, patient has active scripts for Latuda 80 mg + 20 mg. K SALES MANAGER * Telephone Encounter - Riana Guidry - 06/01/2022 10:59 AM CST Patient mother would like to know if she could get just an order of lurasidone (LATUDA) 100 mg. Shestated every time she picks it up. It's costing her $50 bucks for just one of the dose. If you needto speak with anyone. You can call the patient. Riana K SALES MANAGER documented in this encounter Plan of Treatment Not on file documented as of this encounter Visit Diagnoses Not on filedocumented in this encounter Care Teams Power Sweeper Operator Relationship Specialty Start Date End Date Marlin Contreras MD PCP - General 04/07/17 10/09/23 Bettie Cabezas MD [address] [place] [address] Resident Psychiatry 03/23/22 09/23/23 documented as of this encounter
--- OUTSIDE RECORDS SUMMARY | 2024-03-25 18:42 | XMS_ITS | Encounter Summary ---
Author Organization [facility] Healthcare Address [address] [place] [address] Care Team Providers Care Digital Strategy Specialist Name Role Phone Marlin Contreras MD Primary Care Provider [phone] Bettie Cabezas MD Unavailable [phone] Reason for Visit * Reason Onset Date Comments Appointment Reminder Call 10/26/2022 Encounter Details Date Type Department Care Team (Late st Contact Info) Description 10/26/2022 Telephone [facility]- Psychiatry [facility] [address] [facility] [address] [place] [address] Bettie Cabezas MD [facility] [address] [place] [address] Appointment Reminder Call Social History [...] often do you attend chur ch or scientologist services? Never 02/23/2022 Do you [...] staff should administer the PHQ-9) 1 02/23/2022 [facility] of Occupat ional Health - Occupational Stress [...] on file Legal Sex Female 12:29 PM CONSTRUCTION PROJECT COORDINATOR Gender Identity Not on file Sexual Orientation Not on file documented as of this encounter Miscellaneous Notes * Telephone Encounter - Riana Guidry - 10/26/2022 11:30 AM CDT Reminder call for next day visit. Confirmed ___ Unconfirmed ___ Riana documented in this encounter Plan of Treatment Not on file documented as of this encounter Visit Diagnoses Not on filedocumented in this encounter Care Teams Digital Strategy Specialist Relationship Specialty Start Date End Date Marlin Contreras MD PCP - General 04/07/17 10/09/23 Bettie Cabezas MD [address] [place] [address] Resident Psychiatry 03/23/22 09/23/23 documented as of this encounter
--- OUTSIDE RECORDS SUMMARY | 2024-03-25 18:42 | XMS_ITS | Encounter Summary ---
Author Organization [facility] Healthcare Address [address] [place] [address] Care Team Providers Care Executive Vice President Business Development Name Role Phone Marlin Contreras MD Primary Care Provider [phone] Bettie Cabezas MD Unavailable [phone] Encounter Details Date Type Department Care Team (Late st Contact Info) Description 08/13/2022 Telephone [facility]ry [facility] [address] [facility] [facility] [address] [place] [address] Bettie Cabezas MD [address] [place], [place] [id number] Social History Tobacco Use Types Packs/Day Years [...] staff should administer the PHQ-9) 1 02/23/2022 [facility] of Occupat ional Health [...] feel afraid or unsafe? Denies 08/24/2022 Comments Unknown Sex and Gender Information Value Date Recorded Sex Assigned at Not on file Legal Sex Female 12:29 PM BOTTOM STOP ATTACHER Gender Identity Not on file Sexual Orientation Not on file documented as of this encounter Miscellaneous Notes * Telephone Encounter - Riana uGidry - 08/13/2022 3:03 PM CDT This has been scheduleCornelio Mayers * Telephone Encounter - Riana Guidry - 08/13/2022 3:03 PM CDT ----- Message from Bettie Traore MD sent at 08/13/2022 12:03 PM CDT ----- Regarding: Shoe Stitcher Odd Patient Can we schedule her for 10/27 at 3:00pm? Thanks! documented in this encounter Plan of Treatment Not on file documented as of this encounter Visit Diagnoses Not on filedocumented in this encounter Care Teams Executive Vice President Business Development Relationship Specialty Start Date End Date Marlin Contreras MD PCP - General 04/07/17 10/09/23 Bettie Cabezas MD [address] [place] [address] Resident Psychiatry 03/23/22 09/23/23 documented as of this encounter
--- OUTSIDE RECORDS SUMMARY | 2024-03-25 18:42 | XMS_ITS | Encounter Summary ---
Author Organization [facility] Healthcare Address [address] [place] [address] Care Team Providers Care Farm Marketer Name Role Phone Marlin Contreras MD Primary Care Provider [phone] Bettie Cabezas MD Unavailable [phone] Encounter Details Date Type Department Care Team (Late st Contact Info) Description 05/19/2022 2:15 PM UROLOGIC NURSE Telemedicine [facility] Psychiatry Clinic [address] [facility] [address] [facility] [address] [place] [address] Bettie Cabezas MD [address] [place] [address] Bipolar disorder, current episode depressed, [...] should administer the PHQ-9) 1 02/23/2022 [facility] of Occupat ional Health - [...] in a fdc (including now)? No 02/23/2022 Comments Unknown Sex and Gender Information Value Date Recorded Sex Assigned at Not on file Legal Sex Female 12:29 PM UROLOGIC NURSE Gender Identity Not on file Sexual Orientation Not on file documented as of this encounter Ordered Prescriptions Prescription Sig Dispense Quantity Refills Last Filled Start Date End Date lurasidone (LATUDA) 20 mg tablet Take 1 tablet (20 mg total) by mouth daily for 21 days Take with 80mg tablet for total of 100mg daily 21 tablet 3 05/19/2022 07/02/2022 lurasidone (LATUDA) 80 mg tablet Take 1 tablet (80 mg total) by mouth daily 30 tablet 3 06/02/2022 07/02/2022 lurasidone (LATUDA) 20 mg tablet Take 1 tablet (20 mg total) by mouth daily for 21 days Take with 80mg tablet for total of 100mg daily 21 tablet 05/19/2022 05/19/2022 documented in this encounter Progress Notes * Bettie Traore MD - 05/19/2022 2:15 PM CST Patient ID: Stephanie Coates is a 22 y.o. female with a date of of 2000. She is presenting to the [facility] Psych[facility]ry Clinic for a follow-up appointment. She was last seen on 05/05/2021. This was a telemedicine visit with Stephanie Coates alone which took place via real-time video connection with [employer]. During the visit, I was located at home and the patient was located at home in the state of [place]. The patient visit started at 2:14 and ended at 2:20. My total encounter time on 05/19/2022 was 30 minutes which was spent in the activities documented in the note. This includes time spent prior to the visit and after the visit in direct care of the patient. This time does not include time spent in any separately reportable services.. The patient has been informed that the visit may not be secure and acknowledged the information. I have explained the option of participating in a telephone or video visit during the COVID-19 public health emergency to the patient. After being given an opportunity to ask questions about and discuss this type of visit, the patient verbally consented to proceeding with the telephone/video visit.The patient understands that this service replaces an office visit and they may be billed and/or responsible for any applicable copayments. Chief Complaint Its getting better Sources of Information: Patient, who seems reliable. Chart, which is presumed to be reliable. HPI: Patient reports that she has been able to engage more in daily activities, is sleeping less during the day (though still taking naps), and mood has been improved. Passive SI is improved, more intermittent and last had it about a week ago. Medication seems to be helping, denied side effects including EPS. No racing thoughts, decreased sleep, grandiosity, AVH or other manic symptoms. She is in the introductory sessions of DBT. No reported substance use. I have reviewed [...] mg total) by mouth daily 30 tablet 0 nicotine polacrilex (NICORETTE) 2 mg [...] vitals taken for this visit. Physical Exam: Unable to assess d/t nature of visit Mental Status Exam: General Appearance and Behavior: unable to assess d/t phone visit Speech: normal tone and amount, regular rate, rhythm, volume, latency. Flow of Thought: logical and sequential Content of Thought: no evidence of SI/HI/AVH. No e/o paranoia or delusions Mood: better Affect: voice appropriately reactive Insight: good Judgment: good Sensorium: A&Ox4 Laboratory Data: Last labs reviewed from 02/01 02/04 and 02/23/22 Ethanol level undetectable, UDS +cannabis, other labs unremarkable 04/07/22 was 1.0 Assessment: Diagnoses and all orders for this visit: Bipolar disorder, current episode depressed, mild or moderate severity, unspecified (HCC) (Primary) Ms. Coates is a 21 year old female with history of bipolar affective disorder who presents for follow up. No change in diagnostic formulation presently. Patient has had improvement in depressive symptoms with Latuda and has started re-engaging with activities. Will titrate up Latuda to 100mg to assess if patient has additional benefit, advised her [facility] clinic if she is having side effects or other symptoms arise. Will continue other medications at current dose for now. Patient amenable with plan. Plan: 1. Pharmacotherapy: -increase Latuda from 80mg to 120mg nightly (with >350 calorie) -continue lithium 900mg nightly -continue hydroxyzine 50mg BID PRN Discussed risks, benefits, side effects, and alternatives to treatment plan with patient providing informed consent 2. Psychotherapy: - I provided supportive and motivational psychotherapy focusing on behavioral activation and continued compliance with medication throughout the duration of the interview -continue weekly DBT therapy 3. Medical: - No active medical issues at this time 4. Labs: - Labs reviewed from 04/07/22, plan to get repeat Li level in 1 month 5. Psychosocial: - denies acute needs 6. [...] further evaluation and injection Appointment information: Start: 2:14pm Stop: 2:20pm Total time: 6 minutes, I also spent 15 minutes reviewing medical recordsfor this encounter. Bettie Traore MD Security Assistant, PGY-3 OGIC NURSE documented in this encounter Plan of Treatment Not on file documented as of this encounter Visit Diagnoses Diagnosis Bipolar disorder, current episode depressed, mild or moderate severity, unspecified (HCC)- Primary documented in this encounter Discontinued Medications Medication Sig Discontinue Reason Start Date End Da te lurasidone (LATUDA) 80 mg tablet Take 1 tablet (80 mg total) by mouth daily Reorder 05/05/2022 05/19/2022 lurasidone (LATUDA) 20 mg tablet Take 1 tablet (20 mg total) by mouth daily for 21 days Take with 80mg tablet for total of 100mg daily Reorder 05/19/2022 05/19/2022 documented as of this encounter Care Teams Farm Marketer Relationship Specialty Start Date End Date Marlin Contreras MD PCP - General 04/07/17 10/09/23 Bettie Cabezas MD [address] [place] [address] Resident Psychiatry 03/23/22 09/23/23 documented as of this encounter
--- OUTSIDE RECORDS SUMMARY | 2024-03-25 18:42 | XMS_ITS | Encounter Summary ---
Author Organization [facility] Healthcare Address [address] [place] [address] Care Team Providers Care Airplane Tube Builder Name Role Phone Marlin Contreras MD Primary Care Provider [phone] Bettie Cabezas MD Unavailable [phone] Reason for Visit * Reason Onset Date Comments Follow-up 09/08/2022 Encounter Details Date Type Department Care Team (Late st Contact Info) Description 09/08/2022 Telephone [facility]- [facility]iatry [facility] [address] [facility] [address] [place] [address] Bettie Cabezas MD [facility] [address] [place] [address] Follow-up Social History Tobacco Use [...] often do you attend chur ch or jain services? Never 02/23/2022 Do you belong to any clubs o r organizations such as restorationism groups, unions, fraternal or athletic groups, or [...] staff should administer the PHQ-9) 1 02/23/2022 [facility] of Occupat ional Health - Occupational Stress [...] on file Legal Sex Female 12:29 PM DECORATING INSPECTOR Gender Identity Not on file Sexual Orientation Not on file documented as of this encounter Miscellaneous Notes * Telephone Encounter - Bettie Traore MD - 09/09/2022 12:46 PM CDT Called and spoke with patient about interventional psychiatry referral for either ketamine or ECT. Patient was interested in referral being sent. Also spoke with her regarding low Li level while she was admitted, it was closer to a day after she had taken her last dose. * Telephone Encounter - Riana Guidry - 09/08/2022 2:08 PM CDT Patient said she missed your call. Please call back. Her phone is off the Do not disturb. Riana documented in this encounter Plan of Treatment Not on file documented as of this encounter Visit Diagnoses Not on filedocumented in this encounter Care Teams Airplane Tube Builder Relationship Specialty Start Date End Date Marlin Contreras MD PCP - General 04/07/17 10/09/23 Bettie Cabezas MD [address] [place] [address] Resident Psychiatry 03/23/22 09/23/23 documented as of this encounter
--- OUTSIDE RECORDS SUMMARY | 2024-03-25 18:42 | XMS_ITS | Encounter Summary ---
Author Organization [facility] Healthcare Address [address] [place] [address] Care Team Providers Care Subway Train Operator Name Role Phone Marlin Contreras MD Primary Care Provider [phone] Bettie Cabezas MD Unavailable [phone] Reason for Visit * Reason Onset Date Comments Appointment Reminder Call 09/02/2022 Encounter Details Date Type Department Care Team (Late st Contact Info) Description 09/02/2022 Telephone [facility]- Psychiatry Clinic [address] [facility] [address] [place] [address] Bettie Cabezas MD [facility] [address] [place] [address] Appointment Reminder Call Social History [...] any clubs o r organizations such as faith groups, unions, fraternal or athletic groups, or [...] should administer the PHQ-9) 1 02/23/2022 [facility] of Occupat ional Health - Occupational Stress [...] on file Legal Sex Female 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 Was visit by Zoom _X__ Yes or ___ No and was Link confirmed _X__ Yes or ___ NO? Was Benefits Clerk needed and/or Schedule? ___ Yes or __X_ No RIANA documented in this encounter Plan of Treatment Not on file documented as of this encounter Visit Diagnoses Not on filedocumented in this encounter Care Teams Subway Train Operator Relationship Specialty Start Date End Date Marlin Contreras MD PCP - General 04/07/17 10/09/23 Bettie Cabezas MD [address] [place] [address] Resident Psychiatry 03/23/22 09/23/23 documented as of this encounter
--- OUTSIDE RECORDS SUMMARY | 2024-03-25 18:42 | XMS_ITS | Encounter Summary ---
Author Organization [facility] Healthcare Address [address] [place] [address] Care Team Providers Care Manager Book Name Role Phone Marlin Contreras MD Primary Care Provider [phone] Bettie Cabezas MD Unavailable [phone] Reason for Visit * Reason Onset Date Comments Scheduling Appointments 05/19/2022 Encounter Details Date Type Department Care Team (Late st Contact Info) Description 05/19/[address] [facility] Psychiatry Clinic [address] [facility] [address] [place] [address] Bettie Cabezas MD [facility] [address] [place] [address] Scheduling Appointments Social History Tobacco [...] any clubs o r organizations such as rastafarian groups, unions, fraternal or athletic groups, or [...] staff should administer the PHQ-9) 1 02/23/2022 [facility] [place] of Occupat ional Health - Occupational Stress [...] in a prison (including now)? No 02/23/2022 Comments Unknown Sex and Gender Information Value Date Recorded Sex Assigned at Not on file Legal Sex Female 12:29 PM LOCUM TENENS PSYCHIATRIST Gender Identity Not on file Sexual Orientation Not on file documented as of this encounter Miscellaneous Notes * Telephone Encounter - Riana Guidry - 05/19/2022 2:49 PM CST Unable to reach. Left message of next visit schedule for 07/02 2:45. Riana M TENENS PSYCHIATRIST documented in this encounter Plan of Treatment Not on file documented as of this encounter Visit Diagnoses Not on filedocumented in this encounter Care Teams Manager Book Relationship Specialty Start Date End Date Marlin Contreras MD PCP - General 04/07/17 10/09/23 Bettie Cabezas MD [address] [place] [address] Resident Psychiatry 03/23/22 09/23/23 documented as of this encounter
--- OUTSIDE RECORDS SUMMARY | 2024-03-25 18:42 | XMS_ITS | Encounter Summary ---
Author Organization [facility] Healthcare Address [address] [place] [address] Care Team Providers Care Enamel Drier Name Role Phone Marlin Contreras MD Primary Care Provider [phone] Bettie Cabezas MD Unavailable [phone] Encounter Details Date Type Department Care Team (Late st Contact Info) Description 09/22/2022 12:45 PM CDT Telemedicine [facility]iat[facility] [address] [facility] [address] [place] [address] Bettie Cabezas MD [address] [place] [address] Bipolar disorder, current episode depressed, [...] often do you attend chur ch or sikh services? Never 02/23/2022 Do you belong to [...] staff should administer the PHQ-9) 1 02/23/2022 [facility] of Occupat ionok Health - Occupational Stress Questionnaire Answer Date [...] place to sleep or slept in a fci (including now)? No 02/23/2022 Personal Safety Answer Date Recorded Have you ever been in or are you currently in a harmful physical or emotional relationship or is someone making you feel afraid or unsafe? Denies 08/24/2022 Comments No Sex and Gender Information Value Date Recorded Sex Assigned at Not on file Legal Sex Female 12:29 PM SAFEMAKER Gender Identity Not on file Sexual Orientation Not on file documented as of this encounter Ordered Prescriptions Prescription Sig Dispense Quantity Refills Last Filled Start Date End Date lurasidone (LATUDA) 80 mg tabletIndications: Depression associated with Bipolar Disorder Take 1 tablet (80 mg total) by mouth daily with dinner 30 tablet 3 09/29/2022 3 lithium ER (ESKALITH) 450 mg CR tabletIndications: Bipolar Disorder Take 2 tablets (900 mg total) by mouth nightly 60 tablet 3 09/22/2022 3 buPROPion XL (Wellbutrin XL) 300 mg 24 hr tablet Take 1 tablet (300 mg total) by mouth every morning 30 tablet 3 09/22/2022 3 documented in this encounter Progress Notes * Traore, Bettie Garfield, MD - 09/22/2022 12:45 PM CDT Patient ID: Stephanie Coates is a 22 y.o. female with a date of of 2000. She is presenting to the [facility] Psychiatry Clinic for a follow-up appointment. She was last seen on 09/03/2022. This was a telemedicine visit with Stephanie Coates alone which took place via zoom. During the visit, I was located at home and the patient was located at home in the [facility]. The patient visit started at 12:45 and ended at 12:55. My total encounter time on 09/22/2022 was 30 minutes which was spent in [...] applicable copayments. Chief Complaint I've been doing way better Sources of Information: Patient, who seems reliable. Chart, which is presumed to be reliable. HPI: At her last visit patient was switched to Wellbutrin for complaints of poor focus and a referral was made to interventional psychiatry for ongoing depressive symptoms. Since starting the Wellbutrin she has had increased energy and motivation. She has started working out with a personal computer specialist and being more conscious about what she is eating. No SI. She has also been getting a lot out of therapy and applying things to her life. She plans to start looking for a job soon, wants things to be a little more stable first. Sleep is unchanged. No racing thoughts. No reported side effects. No reported substance use. She canceled the interventional psychiatry intake with her mood and depressive symptoms improved, she will reach back out to schedule if she feels it is needed. I have reviewed Family History, Social History, [...] total) by mouth nightly 60 tablet 3 [START ON 09/29/2022] lurasidone (LATUDA) 80 mg tablet Take 1 [...] mg total) by mouth every morning - lithium ER (ESKALITH) 450 mg CR tablet; Take 2 tablets (900 mg total) by mouth nightly - lurasidone (LATUDA) 80 mg tablet; Take 1 tablet (80 mg total) by mouth daily with dinner Ms. Coates is a 21 year old female with history of bipolar affective disorder who presents for follow up. No change in diagnostic formulation presently. Patient has had improvement in depressive symptoms on Wellbutrin. Will plan to hold of on interventional psychiatry consult with patient progressing on current medications, but can consider this in the future if indicated. Tolerating current medications well, no indication for changes at this time.Li level a month ago was 0.7 in the hospital it was 0.4 but this was longer than 12 hours out, willget repeat level in several months (patient did not tolerate up titration in the past d/t side effects) Plan: 1. Pharmacotherapy: -continue Latuda 80mg nightly [...] this time 4. Labs: - Labs reviewed, no further labs needed at this time 5. Psychosocial: - denies acute needs 6. [...] 8. Follow up: Return to clinic in 4-5 weeks Appointment information: Start: 12:45pm Stop: 1:45pm Total time: 10 minutes, I also spent 10 minutes reviewing medical records for this encounter. Bettie Traore MD Lock Stitch Channeler, PGY-3 documented in this encounter Plan of Treatment Not on file documented as of this encounter Visit Diagnoses Diagnosis Bipolar disorder, current episode depressed, mild or moderate severity, unspecified (HCC)- Primary documented in this encounter Discontinued Medications Medication Sig Discontinue Reason Start Date End Da te buPROPion XL (Wellbutrin XL) 150 mg 24 hr tablet Take 1 tablet (150mg) daily for one week, if tolerating increase to 2 tablets (300mg) daily 09/03/2022 09/22/2022 lurasidone (LATUDA) 80 mg tabletIndications:Depr ession associated with Bipolar Disorder Take 1 tablet (80 mg total) by mouth daily with dinner Reorder 08/26/2022 09/22/2022 lithium ER (ESKALITH) 450 mg CR tabletIndications:Bipo lar Disorder Take 2 tablets (900 mg total) by mouth nightly Reorder 08/31/2022 09/22/2022 documented as of this encounter Care Teams Enamel Drier Relationship Specialty Start Date End Date Marlin Contreras MD PCP - General 04/07/17 10/09/23 Bettie Cabezas MD [facility] [address] [facility] [facility] [address] [place] [address] Resident Psychiatry 03/23/22 09/23/23 documented as of this encounter
--- OUTSIDE RECORDS SUMMARY | 2024-03-25 18:42 | XMS_ITS | Encounter Summary ---
Author Organization [facility] Healthcare Address [address] [place] [address] Care Team Providers Care Retail Equipment Associate Name Role Phone Marlin Conrteras MD Primary Care Provider [phone] Bettie Cabezas MD Unavailable [phone] Encounter Details Date Type Department Care Team (Late st Contact Info) Description 05/05/2022 2:15 PM DIE BARBER Telemedicine [facility]- Psychiatry Clinic [address] [facility] [address] [facility] [address] [place] [address] Bettie Cabezas MD [address] [place] [address] Bipolar disorder, current episode depressed, [...] often do you attend chur ch or baptist services? Never 02/23/2022 Do you belong to [...] staff should administer the PHQ-9) 1 02/23/2022 [facility] of Occupat ional Health - Occupational [...] on file Legal Sex Female 12:29 PM DIE BARBER Gender Identity Not on file Sexual Orientation Not on file documented as of this encounter Ordered Prescriptions Prescription Sig Dispense Quantity Refills Last Filled Start Date End Date lurasidone (LATUDA) 80 mg tablet Take 1 tablet (80 mg total) by mouth daily 30 tablet 05/05/2022 05/19/2022 documented in this encounter Progress Notes * Bettie Traore MD - 05/05/2022 2:15 PM CST Patient ID: Stephanie Coates is a 22 y.o. female with a date of of 2000. She is presenting to the [facility] Psychiatry Clinic for a follow-up appointment. She was last seen on 04/30/2021. This was a telemedicine visit with Stephanie Coates alone which took place via real-time video connection with [employer]. During the visit, I was located at home and the patient was located at home in the [facility]. The patient visit started at 2:44 and ended at 2:51. My total encounter time on 05/05/2022 was 15 minutes which was spent in the activities documented in the note. This includes time spent prior to the visit and after the visit in direct care of the patient. This time does not includetime spent in any separately reportable services.. The [...] to be reliable. HPI: Patient reports she was only able to get Latuda on Tuesday so she has only had a couple of doses of 40mg. She is not noting side effects. Has not had worsening of depressive symptoms or passive SI. Norecurrence of manic symptoms. No reported substance use. No racing thoughts, decreased sleep, grandiosity or other manic symptoms or AVH. I have reviewed Family History, Social History, [...] e/o paranoia or delusions Mood: okay Affect: voice appropriately reactive Insight: good Judgment: good Sensorium: A&Ox4 Laboratory Data: Last labs reviewed from 02/01 02/04 and 02/23/22 Ethanol level undetectable, UDS +cannabis, other labs unremarkable 04/07/22 was 1.0 Assessment: Diagnoses and all orders for this visit: Bipolar disorder, current episode depressed, mild or moderate severity, unspecified (HCC) (Primary) Other orders - lurasidone (LATUDA) 80 mg tablet; Take 1 tablet (80 mg total) by mouth daily Ms. Coates is a 21 year old female with history of bipolar affective disorder who presents for follow up. No change in diagnostic formulation presently. Patient continues to have depressive symptoms but has only just started on low dose Latuda that sheis tolerating well. Will continue to titrate up to 80mg and continue lithium and with close follow up, along with therapy and group sessions. and is isolated and spends most of her time sleeping. Will continue hydroxyzine for anxiety but encouraged her to only take as needed as it may be contributing to fatigue/daytime somnolence. Patient amenable with plan. Plan: 1. Pharmacotherapy: -titrate up Latuda 40mg daily (with >350 calorie), increase by 20mg every 2 days as tolerated until on 80mg daily -continue lithium 900mg nightly -continue hydroxyzine 50mg [...] plan to get repeat Li level in 1-2 months 5. Psychosocial: - denies acute needs 6. [...] to clinic in 2 weeks for further evaluation and injection Appointment information: Start: 2:44pm Stop: 2:51pm Total time: 7 minutes, I also spent 10 minutes reviewing medical recordsfor this encounter. Bettie Traore MD Therapist'S Assistant, PGY-3 BARBER BARBER documented in this encounter Plan of Treatment Not on file documented as of this encounter Visit Diagnoses Diagnosis Bipolar disorder, current episode depressed, mild or moderate severity, unspecified (HCC)- Primary documented in this encounter Discontinued Medications Medication Sig Discontinue Reason Start Date End Da te lurasidone (LATUDA) 20 mg tablet Start taking 40mg (2 tables) for 2 days. If tolerated increase to 60mg (3 tablets) for 2 days then increase to 80mg (4 tablets) 04/30/2022 05/05/2022 documented as of this encounter Care Teams Retail Equipment Associate Relationship Specialty Start Date End Date Marlin Contreras MD PCP - General 04/07/17 10/09/23 Bettie Cabezas MD [address] [place] [address] Resident Psychiatry 03/23/22 09/23/23 documented as of this encounter
--- OUTSIDE RECORDS SUMMARY | 2024-03-25 18:42 | XMS_ITS | Encounter Summary ---
Author Organization [facility] Healthcare Address [address] [place] [address] Care Team Providers Care Long Chain Dyeing Machine Operator Name Role Phone Marlin Contreras MD Primary Care Provider [phone] Bettie Cabezas MD Unavailable Encounter Details Date Type Department Care Team (Late st Contact Info) Description 04/14/2022 12:45 PM PRINTED CIRCUIT BOARD REWORKER Telemedicine [facility]- Psychiatry Clinic [address] [facility] [address] [place] [address] Bettie Cabezas MD [address] [place] [address] Bipolar disorder, current episode depressed, [...] often do you attend chur ch or evangelical services? Never 02/23/2022 Do you belong to [...] staff should administer the PHQ-9) 1 02/23/2022 [facility] of Occupat ional Health - Occupational [...] in a intermediate (including now)? No 02/23/2022 Comments Unknown Sex and Gender Information Value Date Recorded Sex Assigned at Not on file Legal Sex Female 12:29 PM PRINTED CIRCUIT BOARD REWORKER Gender Identity Not on file Sexual Orientation Not on file documented as of this encounter Progress Notes * Bettie Traore MD - 04/14/2022 12:45 PM CST Patient ID: Stephanie Coates is a 22 y.o. female with a date of of 2000. She is presenting to the [facility] Psychiatry Clinic for a follow-up appointment. She was last seen on 04/02/2021. This was a telemedicine visit with Stephanie Coates alone which took place via real-time video connection with [employer]. During the visit, I was located at home and the patient was located at home in the state [facility]. The patient visit started at 12:51pm and ended at 1:02pm. My total encounter time on 04/14/2022 was 11 minutes which was spent in the activities [...] or video visit during the COVID-19 public [facility] emergency to the patient. After being given an opportunity to ask questions about and discuss this type of visit, the patient verbally consented to proceeding with the telephone/video visit.The patient understands that this service replaces an office visit and they may be billed and/or responsible for any applicable copayments. Chief Complaint I'm doing alright Sources of Information: Patient, who seems reliable. Chart, which is presumed to be reliable. Patient's mother, with patient, reliable HPI: At her last visit patient's lithium was changed to nightly and true trough level was obtained on 04/07/22 was 1.0. Patient reports her mood is mildly improved but she still feels overwhelmed with adjusting. Her concentration is poor and she feels restless. She is not hopeless or having SI. Denied side effects of medications. Sleeping 8 hours a night and napping some during the day, does report that she is having nightmares and flashbacks from when she was manic and has stopped taking Trazodone but with littleimpact to frequency of nightmares. She had intake with therapy and will start with her individual therapist at the end of the month. Anxiety levels have been higher and she worries about getting back to her baseline and what her life is going to look like going forward. No manic symptoms or AVH. I have reviewed [...] Appearance and Behavior: unable to assess d/t nature of visit Speech: normal tone and amount, regular rate, rhythm, volume, latency. Flow of Thought: logical and sequential Content of Thought: denies SI/HI/AVH. No e/o paranoia or delusions Mood: a little better Affect: voice appropriately reactive Insight: good [...] formulation presently. Patient has had improvement in her depressive symptoms since her last visit, though continues to have anhedonia and poor focus. Her voice was more reactive and patient was more future oriented duringtoday's visit. Speech was not pressured, sleeping appropriately, and no other manic symptoms present. Consider possible mixed state with her restlessness, though not clear if its akithesia as patientis on high dose Aristada injections. [place] levels are appropriate (1.0 on 04/07). Will continue current medications for now, discussed with her consideration of adding another medication like Lamictal in the future or changing Aristada injections to Latuda but first will have patient start therapy and continue to monitor how she is doing. Discontinue Trazodone with patient already self discontinuing. Will plan for close follow up. Patient was amenable with plan. Plan: 1. Pharmacotherapy: -continue Aristada 882mg injections -continue lithium 900mg nightly -continue hydroxyzine 50mg BID PRN -discontinue trazodone 50mg qhs Discussed risks, benefits, side effects, and alternatives [...] further evaluation and injection Appointment information: Start: 12:51pm Stop: 1:02pm Total time: 11 minutes, I also spent 15 minutes reviewing medical records for this encounter. Bettie Traore MD Hammer Operator, PGY-3 TED CIRCUIT BOARD REWORKER documented in this encounter Plan of Treatment Not on file documented as of this encounter Visit Diagnoses Diagnosis Bipolar disorder, current episode depressed, mild or moderate severity, unspecified (HCC)- Primary documented in this encounter Care Teams Long Chain Dyeing Machine Operator Relationship Specialty Start Date End Date Marlin Contreras MD PCP - General 04/07/17 10/09/23 Bettie Cabezas MD [address] [place] [address] Resident Psychiatry 03/23/22 09/23/23 documented as of this encounter
--- OUTSIDE RECORDS SUMMARY | 2024-03-25 18:42 | XMS_ITS | Encounter Summary ---
Author Organization [facility] Healthcare Address [address] [place] [address] Care Team Providers Care Paymaster Of Purses Name Role Phone Marlin Contreras MD Primary Care Provider [phone] Bettie Cabezas MD Unavailable [phone] Reason for Visit * Reason Onset Date Comments Scheduling Appointments 09/20/2022 Encounter Details Date Type Department Care Team (Late st Contact Info) Description 09/20/2022 Telephone [facility]- Psychiatry Clinic [address] [place] [address] Bettie Cabezas MD [facility] [address] [place] [address] Scheduling Appointments Social History Tobacco [...] How often do you attend chur or jain services? Never 02/23/2022 Do you [...] staff should administer the PHQ-9) 1 02/23/2022 [facility] - [...] on file Legal Sex Female 12:29 PM DERMATOLOGY NURSE Gender Identity Not on file Sexual Orientation Not on file documented as of this encounter Miscellaneous Notes * Telephone Encounter - Riana Guidry - 09/20/2022 8:32 AM CDT Patient said you told her the 09/22 visit would be on the phone. She said she can't come to the clinic. Please advise phone, zoom or in person? Riana documented in this encounter Plan of Treatment Not on file documented as of this encounter Visit Diagnoses Not on filedocumented in this encounter Care Teams Paymaster Of Purses Relationship Specialty Start Date End Date Marlin Contreras MD PCP - General 04/07/17 10/09/23 Bettie Cabezas MD [address] [place] [address] Resident Psychiatry 03/23/22 09/23/23 documented as of this encounter
--- OUTSIDE RECORDS SUMMARY | 2024-03-25 18:42 | XMS_ITS | Encounter Summary ---
Author Organization [facility] Healthcare Address [address] [place] [address] Care Team Providers Care Slabber Light Name Role Phone Marlin Contreras MD Primary Care Provider [phone] Encounter Details Date Type Department Care Team (Late st Contact Info) Description 03/05/2022 12:30 PM BINDER TECHNICIAN Office Visit [facility]- Psychiatry Clinic [address] [place] [address] Bettie Cabezas MD [address] [place] [address] Bipolar affective disorder, remission status unspecified (HCC) (Primary Dx); Routine health maintenance Social History Tobacco Use Types Packs/Day Years [...] often do you attend chur ch or adventism services? Never 02/23/2022 Do you belong to [...] should administer the PHQ-9) 1 [facility] Answer Date [...] in a fpc (including now)? No 02/23/2022 Comments Unknown Sex and Gender Information Value Date Recorded Sex Assigned at Not on file Legal Sex Female 12:29 PM BINDER TECHNICIAN Gender Identity Not on file Sexual Orientation Not on file documented as of this encounter Ordered Prescriptions Prescription Sig Dispense Quantity Refills Last Filled Start Date End Date hydrOXYzine (ATARAX) 25 mg tabletIndications: anxiety Take 2 tablets (50 mg total) by mouth 2 (two) times a day as needed for anxiety 60 tablet 2 03/05/2022 2 traZODone (DESYREL) 50 mg tablet Take 1 tablet (50 mg total) by mouth nightly 30 tablet 03/05/2022 2 hydrOXYzine (ATARAX) 25 mg tabletIndications: anxiety Take 2 tablets (50 mg total) by mouth 2 (two) times a day as needed for anxiety 60 tablet 2 03/12/2022 2 documented in this encounter Progress Notes * Bettie Mesa MD - 03/05/2022 12:30 PM CST Patient ID: Stephanie Coates is a 21 y.o. female with a date of of 2000. She is presenting to the [facility] for an initial intake. She was recently admitted to the hospital from 02/23-02/27/22. Chief Complaint I had my first manic episode and was diagnosed with bipolar disorder... Sources of Information: Patient, who seems reliable. Chart, which is presumed to be reliable. Patient's mother, with patient, reliable HPI: Patient's psychiatric history started at the age of 17 she had onset of depressive symptoms including low mood, anhedonia, decreased energy and motivation, poor appetite and SI. Then in 2020 she began taking Vyvanse for ADHD. In the last several months patient has developed manic episodes characteri zed by decreased need for sleep, increased goal directed behavior, increased energy, pressured speech, hyper-sexuality (promiscuous), hyper-religiosity, grandiosity, and delusions (erotomanic of being Aiden Noriega's /fidebbi, grandiosie/odd of being Perfecto Leyva's daughter, etc.). These were initially thought to be substance induced from stimulants, however her mediations were assessed and not taking increased amount of Vyvanse and UDS on 02/01 when she presented with manic symptoms was only+cannabis. She has been treated with Aristada 882mg, Chlorpromazine, trazodone, Risperdal, and lithium. In the past she was treated with sertraline and venlafaxine for depression. This fall she initially presented to [facility] ED with manic symptoms at the end of December. She was given medication for agitation in the ED and when she was unable to get a bed was discharged. She then had an admission to [facility] lasting 15 days from 02/01-02/16 for manic episode with psychotic features andwas discharged on loaded on Aristada 882mg + Initio 675mg along with chlorpromazine 100mg TID, and trazodone 100mg QHS. She was again admitted to [facility] from 02/23-02/27 with ongoing eladio and was started on lithium 450mg BID and Risperdal 2mg BID with plans to continue her monthly Aristada injections. Today patient reports she has been anxious and restless since coming home from the hospital. She issleeping at night and some during the day, getting 12 hours or more currently. She has had increased nightmares over the last month. No endorsed delusions, AVH, or paranoia. Denies side effects of medications. Lost her job and all her money during her manic episode, planning on getting back into routine slowly. No depressive symptoms endorsed, no SI/HI. No substance use over the last month, previously was using cannabis. No past medical history on file. Allergies: Sulfa (sulfonamide antibiotics) and Sulfamethoxazole-trimethoprim Medications: Current Outpatient Medications Medication Sig Dispense Refill hydrOXYzine (ATARAX) 25 mg tablet Take 1 tablet (25 mg total) by mouth every 4 (four) hours as needed for anxiety 30 tablet 1 lithium ER (ESKALITH) 450 mg CR tablet Take 2 tablets (900 mg total) by mouth daily 60 tablet 1 nicotine polacrilex (NICORETTE) 2 mg gum Chew 1 each (2 mg total) as needed for smoking cessation 100 each 0 risperiDONE (RisperDAL M-TABS) 2 mg disintegrating tablet Take 2 tablets (4 mg total) by mouth nightly 60 tablet 1 Current Facility-Administered Medications Medication Dose Route Frequency Provider Last Rate Last Admin ARIPiprazole lauroxil (ARISTADA) intramuscular syringe 882 mg 882 mg intramuscular every 4 weeks Bettie Mesa MD 882 mg at 03/05/22 1312 Family History No psychiatric history in family that is known Social History Social History Tobacco Use Smoking status: Unknown Smokeless tobacco: Not on file Substance and Sexual Activity Drug use: Not on file Sexual activity: Not on file Alcohol Use: Not At Risk Frequency of Alcohol Consumption: Monthly or less Average Number of Drinks: 1 or 2 Frequency of Binge Drinking: Never Social History: Patient was born and raised in [place], parents when she was a child. School was somewhat challenging, no IEP or 504. Some college, didn't graduate. Lives with her mom or dad. No history of trauma. She has been arrested once and in correction overnight when manic, no other legalhistory. She has smoked marijuana in the past, no other significant substance use. ROS: Endorses: per HPI Denies: CP, SOB, GI pain, possible +appetite All other systems reviewed are negative There were no vitals taken for this visit. Physical Exam: Constitutional: Patient is in no apparent distress. Neuro: No obvious rigidity, tremors, or focal neurological deficits. Grossly intact upon appearanceand interview. Mental Status Exam: General Appearance and Behavior: appears stated age, well groomed, dressed casually, good eye contact, mild psychomotor agitation shifting in seat Speech: regular rate, rhythm, volume, amount, tone, latency Flow of Thought: logical and sequential Content of Thought: denies SI/HI/AVH. No e/o paranoia or delusions Mood: stable Affect: euthymic, appropriately reactive Insight: good Judgment: good Sensorium: A&Ox4 Calculations: not formally assessed Abstraction: Apple and orange are both Language: average vocabulary per conversation Attention: in tact to conversation Memory: in tact to conversation Fund of Knowledge: not formally assessed Laboratory Data: Last labs reviewed from 02/01 02/04 and 02/23/22 Ethanol level undetectable, UDS +cannabis, other labs unremarkable Assessment: Diagnoses and all orders for this visit: Bipolar affective disorder, remission status unspecified (HCC) (Primary) - [place] level; Future - ARIPiprazole lauroxil (ARISTADA) intramuscular syringe 882 mg Routine health maintenance - Hemoglobin A1c; Future Ms. Coates is a 21 year old female with history of bipolar affective disorder who presents for initial intake. She has history of depressive episodes low mood, anhedonia, decreased energy and motivation, poor appetite and SI. She has also had manic episode lasting over a month with decreased need for sleep, increased goal directed behavior, increased energy, pressured speech, hyper- sexuality (promiscuous), hyper-religiosity, grandiosity, and delusions (erotomanic of being Aiden Noriega's /bob, grandiosie/odd of being Perfecto Leyva's daughter, etc.). This was initially in the setting of Vyvanse but then continued without further stimulants or other substance use. Diagnostic formulationof bipolar affective disorder remains unchanged. Patient has recently had over month long manic episode with psychotic features that led to her arrest and to repeated hospitalizations with multiple psychotropic medications. She was on both Aristatda injections and Thorazine 100mg TID but had to be readmitted. Plan at discharge from last [facility] was to continue Risperdal 4mg daily and Aristada 882mg q4 weeks along with lithium, hydroxazine and trazodone. Patient has had minimal side effects, outside of some akithisia and nightmares.Plan to decrease medications, first will titrate down Risperdal and discontinue in the future. Though it is a priority to minimize polypharmacy and multiple psychotropic medications patient had recent severe decompensation and therefore will make changes slowly as to try to limit destabilization, will also want to get lithium level in therapeutic range before decreasing Arisitada (can also consider switching to oral medication if patient is compliant with other oral medications. Also plan to dec rease trazodone at next visit and continue to monitor patient's nightmares. Patient is amenable to plan. Because patient is young and was just initiated on antipsychotic plan to consider starting Metformin at next visit. eGFR and liver enzymes are wnl, will get Hgb A1c before initiation. Plan: 1. Pharmacotherapy: -continue Aristada 882mg injections -continue lithium 900mg daily -increase hydroxyzine from 25mg BID PRN to 50mg BID PRN -decrease Risperdal from 4mg to 2mg qhs -decrease trazodone from 100mg to 50mg qhs -obtain Li trough level Discussed risks, benefits, side effects, and alternatives to treatment plan with patient providing informed consent 2. Psychotherapy: - I provided supportive and motivational psychotherapy focusing on rapport building and continued compliance with medication throughout the duration of the interview 3. Medical: - No active medical issues at this time 4. Labs: - Labs reviewed from 02/01 and 02/23. Li level and Hgb A1c ordered 5. Psychosocial: - denies acute needs [...] and plan of cessation/abstinence from substance use Denies SI/HI/AVH and demonstrates no active psychosis, [...] 8. Follow up: Return to clinic in 4 weeks for further evaluation Appointment information: Start: 12:31pm Stop: 1:11pm Total time: 40 minutes, I also spent 20 minutes reviewing medical records for this encounter Bettie Mesa MD Telephone Lineworker, PGY-3 ER TECHNICIAN ER TECHNICIAN documented in this encounter Miscellaneous Notes * Addendum Note - Bettie Mesa MD - 03/05/2022 12:30 PM CSTAddended by: BETTIE MESA on: 03/05/2022 04:40 PM Modules accepted: Orders ER TECHNICIAN documented in this encounter Plan of Treatment Scheduled Orders Name Type Priority Associated Diagnoses Orde r Schedule Hemoglobin A1c Lab Routine Routine health maintenance Expected: 03/05/2022, Expires: 03/05/2023 documented as of this encounter Procedures Procedure Name Priority Date/Time Associated Diagnosis Comments HEMOGLOBIN A1C Routine 03/06/2022 10:31 AM BINDER TECHNICIAN LITHIUM LEVEL Routine 03/06/2022 10:31 AM BINDER TECHNICIAN Bipolar affective disorder, remission status unspecified (HCC) documented in this encounter Results * Hemoglobin A1c (03/06/2022 10:31 AM BINDER TECHNICIAN) Hgb A1C 5.0 <5.7 % of total Hgb [facility] Comment: For the purpose [...] diagnosis of diabetes in children. According to [place] Diabetes Association (ADA) guidelines, hemoglobin A1c <7.0% represents optimal control in non- diabetic patients. Different metrics may apply to specific patient populations. Standards of Medical Care in Diabetes(ADA). ?? 03/06/2022 10:3 1 AM BINDER TECHNICIAN 03/06/2022 10:32 AM BINDER TECHNICIAN Bettie Cabezas MD LAB BLOOD ORDERABLES Margie l Result [facility] [address] [place] [address] * (ABNORMAL) [place] level (03/06/2022 10:31 AM BINDER TECHNICIAN) LITHIUM 0.4(L) 0.6 - 1.2 mmol/L [facility] Blood 03/06/2022 10:3 1 AM BINDER TECHNICIAN 03/06/2022 10:32 AM BINDER TECHNICIAN Bettie Cabezas MD LAB BLOOD ORDERABLES Margie l Result [facility] [address] [place] [address] documented in this encounter Visit Diagnoses Diagnosis Bipolar affective disorder, remission status unspecified (HCC)- Primary Routine health maintenance Unspecified examination documented in this encounter Discontinued Medications Medication Sig Discontinue Reason Start Date End Da te hydrOXYzine (ATARAX) 25 mg tabletIndications:anxiet y Take 1 tablet (25 mg total) by mouth every 4 (four) hours as needed for anxiety Reorder 02/26/2022 03/05/2022 hydrOXYzine (ATARAX) 25 mg tabletIndications:anxiet y Take 2 tablets (50 mg total) by mouth 2 (two) times a day as needed for anxiety Reorder 03/12/2022 03/05/2022 documented as of this encounter Orders Medications Ordered That Jose ht Not Have Been Administered Count Last Ordered Date First Ordered Date ARIPiprazole lauroxil (ARIST ADA) intramuscular syringe 882 mg 1 03/05/2022 documented in this encounter Care Teams Slabber Light Relationship Specialty Start Date End Date Marlin Contreras MD PCP - General 04/07/17 10/09/23 documented as of this encounter
--- OUTSIDE RECORDS SUMMARY | 2024-03-25 18:42 | XMS_ITS | Encounter Summary ---
Author Organization [facility] Healthcare Address [address] [place] [address] Care Team Providers Care Computer Hardware Designer Name Role Phone Marlin Contreras MD Primary Care Provider [phone] Reason for Visit * Reason Comments Follow-up MD Visit and Injecti on Encounter Details Date Type Department Care Team (Latest Contact Info) Description 03/05/2022 1:45 PM CHAPERON Clinical Support [facility]- Psychiatry Clinic [address] [place] [address] Bipolar affective disorder, current episode manic with psychotic symptoms (CMS/HCC) ([facility]) Social History Tobacco Use Types Packs/Day Years Used Date Smoking Tobacco: Unknown Tobacco Cessation:Counseling Given: Not Answered Humiliation, Afraid, [...] staff should administer the PHQ-9) 1 02/23/2022 [facility] - Occupational Stress Questionnaire Answer Date Recorded [...] on file Legal Sex Female 12:29 PM CHAPERON Gender Identity Not on file Sexual Orientation Not on file documented as of this encounter Last Filed Vital Signs Vital Sign Reading Time Taken Comments Blood Pressure 136/66 03/05/2022 12:28 PM CHAPERON Pulse 101 03/05/2022 12:28 PM CHAPERON Temperature 36.7 ??C (98.1 ??F) 03/05/2022 12:[address] Respiratory Rate 20 03/05/2022 12:28 PM CHAPERON Oxygen Saturation 100% 03/05/2022 12:28 PM CHAPERON Inhaled Oxygen Concentration - - Weight 59.5 kg (131 lb 1.6 oz) 03/05/2022 12:28 PM CHAPERON Height 162.6 cm (5' 4 ) 03/05/2022 12:28 PM CHAPERON Body Mass Index 22.5 03/05/2022 12:28 PM CHAPERON documented in this encounter Progress Notes * Sweta Alas RN - 03/05/2022 1:45 PM CST Aristada 882mg IM given Lt Gluteal. Pt tolerated well. ERON documented in this encounter Plan of Treatment Not on file documented as of this encounter Visit Diagnoses Diagnosis Bipolar affective disorder, current episode manic with psychotic symptoms (CMS/HCC) (HCC) documented in this encounter Administered Medications Inactive Administered Medications - up to 3 most recent administrations Medication Order MAR Action Action Date Dose Rate Site ARIPiprazole lauroxil (ARISTADA) intramuscular syringe 882 mg 882 mg, intramuscular, Every 4 weeks, First dose on Tue03/05/22 at 1345, Gluteal administration only (exception: for doses of 441 mg, can administer via either gluteal or deltoid). Tap syringe 10 times and then shake vigorously with a loose wrist for a minimum of 30 seconds immediately prior to injection., Indications: SchizophreniaIndications:Sc hizophrenia Given 04/02/2022 4:07 PM CHAPERON 882 mg Right Dorsogluteal/Butt ock Given 03/05/2022 1:12 PM CHAPERON 882 mg Le ft Dorsogluteal/Buttock documented in this encounter Care Teams Computer Hardware Designer Relationship Specialty Start Date End Date Marlin Contreras MD PCP - General 04/07/17 10/09/23 documented as of this encounter
--- OUTSIDE RECORDS SUMMARY | 2024-03-25 18:42 | XMS_ITS | Encounter Summary ---
Author Organization [facility] Healthcare Address [address] [place] [address] Care Team Providers Care Seam Presser Name Role Phone Marlin Contreras MD Primary Care Provider Bettie Cabezas MD Unavailable [phone] Encounter Details Date Type Department Care Team (Late st Contact Info) Description 04/30/2022 3:45 PM POLE CLASSIFIER Office Visit [facility]- Psychiatry Clinic [address] [place] [address] Bettie Cabezas MD [address] [place] [address] Bipolar disorder, current episode depressed, [...] often do you attend chur ch or restorationist services? Never 02/23/2022 Do you belong to [...] [facility] - Occupational Stress Questionnaire Answer Date [...] on file Legal Sex Female 12:29 PM POLE CLASSIFIER Gender Identity Not on file Sexual Orientation Not on file documented as of this encounter Last Filed Vital Signs Vital Sign Reading Time Taken Comments Blood Pressure 101/64 04/30/2022 3:22 PM POLE CLASSIFIER Pulse 113 04/30/2022 3:22 PM POLE CLASSIFIER Temperature 36.3 ??C (97.3 ??F) 04/30/2022 3:22 PM CS T Respiratory Rate - - Oxygen Saturation 99% 04/30/2022 3:22 PM POLE CLASSIFIER Inhaled Oxygen Concentration - - Weight 62.2 kg (137 lb 3 oz) 04/30/2022 3:22 PM POLE CLASSIFIER Height 162.6 cm (5' 4 ) 04/30/2022 3:22 PM POLE CLASSIFIER Body Mass Index 23.55 04/30/2022 3:22 PM POLE CLASSIFIER documented in this encounter Progress Notes * Bettie Traore MD - 04/30/2022 3:45 PM CST Patient ID: Stephanie Coates is a 22 y.o. female with a date of of 2000. She is presenting to the [facility] Psychiatry Clinic for a follow-up appointment. She was last seen on 04/14/2021. Chief Complaint I'm alright Sources of Information: Patient, who seems reliable. Chart, which is presumed to be reliable. Patient's mother, with patient, reliable HPI: Patient reports she still is sleeping most of the day and night. Not interested in doing anything, has little energy, and feels hopeless. She still feels overwhelmed when she has to do anything. She has passive SI usually about once a day, is able to communicate that to her mom or dad. She has no plan or intent or current SI. Her appetite remains unchanged. No side effects from medications. No reported substance use. No racing thoughts, decreased sleep, grandiosity or other manic symptoms or AVH. She started therapy this week and thinks it is helpful, she is also going to start group therapy steve few weeks. No manic symptoms or AVH. I have [...] with meals 60 tablet 2 lurasidone (LATUDA) 20 mg tablet Start taking 40mg (2 tables) for 2 days. If tolerated increase to 60mg (3 tablets) for 2 days then increase to 80mg (4 tablets) 30 tablet 0 nicotine polacrilex (NICORETTE) 2 [...] appetite All other systems reviewed are negative Vitals BP 101/64 (BP Location: Left arm, Patient Position: Sitting) Pulse 113 Temp 36.3 ??C (97.3 ??F) (Oral) Ht 162.6 cm (5' 4 ) Wt 62.2 kg (137 lb 3 oz) SpO2 99% BMI 23.55 kg/m?? Physical Exam: Grossly 5/5 strength throughout Mental Status Exam: General Appearance and Behavior: appears stated age, appropriately groomed, casually dressed, good eye contact, pleasant, psychomotor neutral, tearful throughout Speech: normal tone and amount, regular rate, rhythm, volume, latency. Flow of Thought: logical and sequential Content of Thought: no evidence of SI/HI/AVH. No e/o paranoia or delusions Mood: numb Affect: restricted, mood congruent, still minimally reactive Insight: good Judgment: good Sensorium: [...] presently. Patient continues to have depressive symptoms and is isolated and spends most of her time sleeping.Daytime somnolence could be due to depression, medications, and boredom may also be contributing. She has had adequate time to respond on current medications, with ongoing MDE will discontinue Aristada injections and start Latuda and titrate up to address symptoms better. Will continue lithium at current dose (level was 1.0 on 04/07). Will continue hydroxyzine for anxiety but encouraged her to only take as needed as it may be contributing to fatigue/daytime somnolence. Patient is also starting therapy and we discussed her ordering a 10,000 lux light to help her with day/night cycle. Will plan to see patient virtually next week for close follow up. Patient was amenable with plan. Plan: 1. Pharmacotherapy: -discontinue Aristada 882mg injections -start Latuda 40mg daily (with >350 calorie), increase [...] 8. Follow up: Return to clinic in 1 week for further evaluation and injection Appointment information: Start: 3:35pm Stop: 3:56pm Total time: 21 minutes, I also spent 10 minutes reviewing medical records for this encounter. Bettie Traore MD Assortment Planner, PGY-3 CLASSIFIER documented in this encounter Plan of Treatment Not on file documented as of this encounter Visit Diagnoses Diagnosis Bipolar disorder, current episode depressed, mild or moderate severity, unspecified (HCC)- Primary documented in this encounter Care Teams Seam Presser Relationship Specialty Start Date End Date Marlin Contreras MD PCP - General 04/07/17 10/09/23 Bettie Cabezas MD [address] [place] [address] Resident Psychiatry 03/23/22 09/23/23 documented as of this encounter
--- OUTSIDE RECORDS SUMMARY | 2024-03-25 18:42 | XMS_ITS | Encounter Summary ---
Author Organization [facility] Healthcare Address [address] [place] [address] Care Team Providers Care Mule Developer Name Role Phone Marlin Contreras MD Primary Care Provider [phone] Bettie Cabezas MD Unavailable [phone] Reason for Visit * Reason Comments Suicidal Ideation * Auth/Cert Specialty Diagnoses / Procedures Referred By Contac t Referred To Contact Diagnoses Suicidal ideation Procedures N/A Referral ID Status Reason Start Date Expiration Date Visits Re quested Visits Authorized [id number] 1 1 Encounter Details Date Type Department Care Team (Latest Contact Info) Description 03/22/2022 5:50 PM WAREHOUSE AND RECEIVING SUPERVISOR - 03/24/2022 10:55 AM WAREHOUSE AND RECEIVING SUPERVISOR Hospital Encounter [facility] [address] [place] [address] Silvestre Sanchez MD [id number] [place] [address] [place] [address] [facility] [address] [place] [address] Simi Rodriguez MD [address] [place] [address] Suicidal ideation (Primary Dx) Discharge Disposition: Discharge to home or self care Social History Tobacco Use Types Packs/Day Years Used Date Smoking Tobacco: Every Day Vaping Started: 03/28/2017; Last attempted to quit: 03/23/2022 Tobacco Cessation:Ready to Q uit: Not Asked; Counseling Given: Not Answered Humiliation, Afraid, Rape, and [...] staff should administer the PHQ-9) 1 02/23/2022 [facility] - Occupational Stress Questionnaire Answer Date Recorded [...] on file Legal Sex Female 12:29 PM WAREHOUSE AND RECEIVING SUPERVISOR Gender Identity Not on file Sexual Orientation Not on file documented as of this encounter Last Filed Vital Signs Vital Sign Reading Time Taken Comments Blood Pressure 112/76 03/24/2022 7:00 AM WAREHOUSE AND RECEIVING SUPERVISOR Pulse 100 03/24/2022 7:00 AM WAREHOUSE AND RECEIVING SUPERVISOR Temperature 36.4 ??C (97.5 ??F) 03/24/2022 7:00 AM CS T Respiratory Rate 16 03/24/2022 7:00 AM WAREHOUSE AND RECEIVING SUPERVISOR Oxygen Saturation 99% 03/24/2022 7:00 AM WAREHOUSE AND RECEIVING SUPERVISOR Inhaled Oxygen Concentration - - Weight 60.8 kg (134 lb) 03/22/2022 9:45 PM WAREHOUSE AND RECEIVING SUPERVISOR Height 162.6 cm (5' 4 ) 03/22/2022 9:45 PM WAREHOUSE AND RECEIVING SUPERVISOR Body Mass Index 23 03/22/2022 9:45 PM WAREHOUSE AND RECEIVING SUPERVISOR documented in this encounter Discharge Summaries * Simi Rodriguez MD - 03/24/2022 11:48 AM CST Inpatient Discharge Summary BRIEF OVERVIEW Admitting Provider: Jm Ghosh MD Discharge Provider: Simi Rodriguez MD Primary Care Physician at Discharge: Marlin Contreras MD [phone] Admission Date: 03/22/2022 Discharge Date: 03/24/2022 Admission Location: [facility] Hospital Problems/Diagnoses: Principal Problem: Bipolar disorder, current episode depressed, mild or moderate severity, unspecified (HCC) Active Problems: Cannabis dependence (HCC) Routine general medical examination at a health care facility Resolved Problems: Suicidal ideation DETAILS OF HOSPITAL STAY Presenting Problem/History of Present Illness: This is the at least 5th psychiatric admission for this 21 y.o. year old, single, White ,unknown employment status female with a history of bipolar disorder who was brought to the hospital by ambulance for passive SI. 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 Patient known to me from previous admission CHIEF COMPLAINT: Just depressed from going through that manic episode HISTORY OF PRESENT ILLNESS: Patient known to me from [facility] admission for manic episode with psychotic features in January 2022.She was loaded on aristada 882mg maintenance and was also discharged with thorazine 100mg TID. She was readmitted 02/23/22 to [facility], thorazine was discontinued and replaced with risperdal 2mg BID and lithium 450mg BID was started. She was then seen on 03/05/22 in [facility] resident clinic. Risperdal was discontinued and lithium was increased to 1200mg daily on 03/09/22 based on 0.4 level. Since the increase in lithium, patient reports jittery and dampened mood. She attributed this to risperdal but lithium seems more likely culprit for tremors and sub-euthymic mood. She is willing to resume 02/27/22 d ischarge regimen of risperdal 2mg BID, lithium 450mg BID, and aristada 882mg monthly last received 03/05/22. She reports she has been staying with her mother. She denies SI and states she feels she would be more comfortable with dc from hospital on 03/24 and follow up with IOP. Will order meds through [facility]. Patient education regarding lithium provided. She denied any stressor with family over the holiday, described time with family as good . Hospital Course: Miss Coates was admitted as a voluntary patient to [facility]. She was restarted on discharge regimen from 02/27/22. This was well tolerated and tremors jitteriness remitted with decreased dose of lithium. No SI/HI/AH/VH. No behavioral dyscontrol. She is proud that utox was negative on admission and is m otivated to refrain from substances of abuse and adhere to maintenance medications to provent another manic episode. She anticipated step down transition to [facility] and requested discharge to outpatient management on 03/24/22. Only prn use was single dose of nicorette gum. Active Issues Requiring Follow-up: Motivational interviewing, random utox, begin IOP Test Results Pending at Discharge: Operative Procedures Performed: Other Procedures: Pertinent Test Results: Utox negative, TSH on 03/22 1.84, lithium on 03/22 was 1.3 Discharge Details Physical Exam at Discharge: Discharge Condition: good Pulse: 100 Resp: 16 BP: 112/76 Temp: 36.4 ??C (97.5 ??F) Weight: 60.8 kg (134 lb) Pertinent Exam Findings at Discharge: SpO2: 99% Total Hours of Sleep: 8.0 Mental Status Exam: General Appearance and Behavior: Appears stated age No apparent distress and Well-dressed Normal psychomotor activity Good eye contact Cooperative Speech: Regular rate Normal rhythm Normal volume Normal amount Normal tone Spontaneous Normal latency (<3 seconds) Flow of Thought: logical, sequential, and goal-directed Content of Thought: No SI/HI/aH/VH Mood: I'm good Affect: euthymic, full range, normal amount, appropriate to conversation/situation, stable, and mood-congruent Insight: good Judgment: good Sensorium: alert, awake, and oriented x 3 Discharge Disposition: Discharge to home or self care Code Status at Discharge: full Discharge Instructions: Do not use any recreational substance. Proceed with plan for IOP Discharge Medications: Current Medications TAKE these medications hydrOXYzine 10 mg tablet Take 1 tablet (10 mg total) by mouth every 4 (four) hours as needed for anxiety For: anxious Commonly known as: ATARAX lithium ER 450 mg CR tablet Take 1 tablet (450 mg total) by mouth 2 (two) times a day with meals For: bipolar depression Commonly known as: ESKALITH nicotine polacrilex 2 mg gum Chew 1 each (2 mg total) as needed for smoking cessation For: stop smoking Commonly known as: NICORETTE risperiDONE 2 mg tablet Take 1 tablet (2 mg total) by mouth 2 (two) times a day For: bipolar depression Commonly known as: RisperDAL traZODone 100 mg tablet Take 1 tablet (100 mg total) by mouth nightly as needed for sleep For: insomnia associated with depression Commonly known as: DESYREL Aristada 882mg IM 04/02/21 Outpatient Follow-Up: Future Appointments Date Time Provider Department Center 04/02/2022 3:45 PM [facility] NURSE INJECTIONS [facility] 04/02/2022 3:45 PM Bettie Traore MD [facility] HOUSE AND RECEIVING SUPERVISOR documented in this encounter Medications at Time of Discharge hydrOXYzine (ATARAX) 10 mg tabletIndication s:anxiety Take 1 tablet (10 mg total) by mouth every 4 (four) hours as needed for anxiety 30 tablet 1 03/23/2022 3 lithium ER (ESKALITH) 450 mg CR tabletIndication s:Depression associated with Bipolar Disorder Take 1 tablet (450 mg total) by mouth 2 (two) times a day with meals 60 tablet 1 03/24/2022 3 nicotine polacrilex (NICORETTE) 2 mg gumIndications:S moking Cessation Chew 1 each (2 mg total) as needed for smoking cessation 100 each 02/26/2022 3 risperiDONE (RisperDAL) 2 mg tabletIndication s:Depression associated with Bipolar Disorder Take 1 tablet (2 mg total) by mouth 2 (two) times a day 60 tablet 1 03/23/2022 3 traZODone (DESYREL) 100 mg tabletIndication s:insomnia associated with depression Take 1 tablet (100 mg total) by mouth nightly as needed for sleep 30 tablet 1 03/23/2022 3 documented as of this encounter Ordered Prescriptions Prescription Sig Dispense Quantity Refills Last Filled Start Date End Date traZODone (DESYREL) 100 mg tabletIndications: insomnia associated with depression Take 1 tablet (100 mg total) by mouth nightly as needed for sleep 30 tablet 1 03/23/2022 3 risperiDONE (RisperDAL) 2 mg tabletIndications: Depression associated with Bipolar Disorder Take 1 tablet (2 mg total) by mouth 2 (two) times a day 60 tablet 1 03/23/2022 3 lithium ER (ESKALITH) 450 mg CR tabletIndications: Depression associated with Bipolar Disorder Take 1 tablet (450 mg total) by mouth 2 (two) times a day with meals 60 tablet 1 03/24/2022 3 hydrOXYzine (ATARAX) 10 mg tabletIndications: anxiety Take 1 tablet (10 mg total) by mouth every 4 (four) hours as needed for anxiety 30 tablet 1 03/23/2022 3 documented in this encounter Discharge Disposition Disposition Code Departure Means Destination Discharge to home or self care documented in this encounter Progress Notes * Simi Rodriguez MD - 03/24/2022 11:43 AM CST Psychiatry Attending Progress Note Interval History: Chart reviewed and patient seen. Patient is voluntary and is looking forward to her mother picking her up today. She reports she believes that her dysthymic mood was a reaction to insight into delusions during manic episode. She is highly motivated for medication compliance, abstaining from substance of abuse, and working on steps toward life goals. She anticipates starting IOP after discharge requested on 03/24/22. Medication compliant, only prn se was nicorette at 2101 Medications: lithium ER, 450 mg, oral, BID with meals (bkfst, dinner) risperiDONE, 2 mg, oral, BID PRN Medications Medication Dose Route Frequency Last Admin hydrOXYzine (ATARAX) tablet 10 mg 10 mg oral Q4H PRN nicotine polacrilex (NICORETTE) gum 2 mg 2 mg mouth/throat Q2H PRN 2 mg at 03/23/222100 traZODone (DESYREL) tablet 100 mg 100 mg oral Nightly PRN Medication Compliance: Compliant Physical Exam: Vitals: 03/24/22 0700 BP: 112/76 Pulse: 100 Resp: 16 Temp: 36.4 ??C (97.5 ??F) SpO2: 99% Total Hours of Sleep: 8.0 Mental Status Exam: General Appearance and Behavior: Appears stated age No apparent distress and Well-dressed Normal psychomotor activity Good eye contact Cooperative Speech: Regular rate Normal rhythm Normal volume Normal amount Normal tone Spontaneous Normal latency (<3 seconds) Flow of Thought: logical, sequential, and goal-directed Content of Thought: No SI/HI/aH/VH Mood: I'm good Affect: euthymic, full range, normal amount, appropriate to conversation/situation, stable, and mood-congruent Insight: good Judgment: good Sensorium: alert, awake, and oriented x 3 Lab/Radiology/Diagnostic Review: Laboratory review: Lab results in the last 48 hours: Recent Results (from the past 48 hour(s)) [place] level Collection Time: 03/22/22 6:05 PM Result Value Ref Range [place] 1.3 (H) 0.6 - 1.2 mmol/L CBC with auto differential Collection Time: 03/22/22 6:05 PM Result Value Ref Range WBC 13.1 (H) 3.8 - 9.9 K/cumm Hgb 12.7 11.9 - 15.5 g/dL Hct 37.7 35.6 - 45.5 % Plt 364 150 - 400 K/cumm MPV 8.9 (L) 9.1 - 12.3 fL RBC 4.02 3.90 - 5.20 M/cumm MCV 93.8 81.3 - 96.4 fL MCH 31.6 27.1 - 33.3 pg MCHC 33.7 32.3 - 35.7 g/dL RDW CV 11.9 11.1 - 14.9 % RDW SD 41.3 35.7 - 48.1 fL NRBC abs 0.00 0.00 - 0.01 K/cumm Comprehensive metabolic panel Collection Time: 03/22/22 6:05 PM Result Value Ref Range Sodium 139 135 - 145 mmol/L Potassium, pl 3.8 3.3 - 4.9 mmol/L Chloride 104 97 - 110 mmol/L CO2 25 22 - 32 mmol/L Anion gap 10 2 - 15 mmol/L BUN 7 (L) 8 - 25 mg/dL Creatinine 0.69 0.60 - 1.10 mg/dL Glucose 84 70 - 199 mg/dL Calcium 9.7 8.5 - 10.3 mg/dL Bilirubin, total 0.3 0.1 - 1.2 mg/dL Protein, pl 7.2 6.5 - 8.5 g/dL Albumin 4.6 3.5 - 5.0 g/dL Alk phos 86 40 - 130 Units/L ALT 13 7 - 45 Units/L AST 16 10 - 45 Units/L Ethanol Collection Time: 03/22/22 6:05 PM Result Value Ref Range Ethanol <10 <=10 mg/dL TSH reflex to free T4 Collection Time: 03/22/22 6:05 PM Result Value Ref Range TSH 1.84 0.30 - 4.20 mcIUnit/mL Differential, auto Collection Time: 03/22/22 6:05 PM Result Value Ref Range Neutrophil abs 8.9 (H) 1.7 - 6.5 K/cumm Imm gran abs 0.1 0.0 - 0.1 K/cumm Lymphocyte abs 2.9 0.8 - 3.3 K/cumm Monocyte abs 1.0 (H) 0.2 - 0.8 K/cumm Eosinophil abs 0.2 0.0 - 0.5 K/cumm Basophil abs 0.1 0.0 - 0.1 K/cumm Neutrophil pct 67.7 % Imm gran pct 0.5 % Lymphocyte pct 22.0 % Monocyte pct 7.8 % Eosinophil pct 1.6 % Basophil pct 0.4 % eGFR Collection Time: 03/22/22 6:05 PM Result Value Ref Range eGFR >90 90 - 130 mL/min/1.73 m2 Drugs of Abuse Screen, Urine without Confirmation Collection Time: 03/22/22 6:22 PM Result Value Ref Range Amphetamine, ur Not Detected CutOff 500ng/mL Barbiturates, ur Not Detected CutOff 200ng/mL Benzodiazepines, ur Not Detected CutOff 100ng/mL Cannabinoids, ur Not Detected CutOff 50 ng/mL Cocaine, ur Not Detected CutOff 150ng/mL Fentanyl, Ur Not Detected Cutoff 1 ng/mL Methadone, ur Not Detected CutOff 300ng/mL Opiates, ur Not Detected CutOff 300ng/mL Oxycodone, ur Not Detected CutOff 100ng/mL Phencyclidine, ur Not Detected CutOff 25 ng/mL Urine Creatinine 35 mg/dL Urinalysis reflex to microscopic and culture Urine Collection Time: 03/22/22 6:22 PM Specimen: Urine Result Value Ref Range Color, ur Straw Yellow Clarity, ur Cloudy (A) Clear Specific gravity, ur 1.009 1.003 - 1.030 pH, urine 7.5 Protein, ur ql Negative Negative Glucose, ur ql Negative Negative Ketones, ur Negative Negative Bilirubin, ur Negative Negative Blood, ur Negative Negative Urobilinogen, ur <2.0 <2.0 mg/dL Nitrite, ur Negative Negative Leukocyte esterase, ur Negative Negative UA reflex comment Reflex conditions for microscopic UA and culture not met. 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 She apparently was doing well on 02/27 discharge with lithium 450mg BID and risperdal 2mg BID but reports tremor and subpar mood since lithium was increased to 1200mg TDD based on lab result on 03/09/22. No eladio, psychosis or SI on the current admission.She is interested in resuming 02/27/22 regimen and follow up with IOP plan she is making with her mother with whom she is currently residing. Plan:voluntary admission. Last received aristada 882mg IM on 03/05/22. Resume risperdal 2mg BID and lithium 450mg BID. PRNs for comfort and safety. Sw and internal medicine consultation. Encourage active participation in psychotherapeutic groups and discharge planning. Encouraged patient to call moth er today and she anticipates discharge on 03/24/22 to transition to IOP program HOUSE AND RECEIVING SUPERVISOR * Jamila Ochoa MSW - 03/24/2022 8:39 AM CST 03/23/22 1555 Discharge Summary Chart reviewed For Medical Necessity Does patient have a planned readmission to hospital planned? No Discharge Disposition Private residence Discharge Records Chart Copied Equipment/Provider Needs No Home Needs Identified Discharge Additional Assistance Financial assistance Discharge medication assistance needed Does the patient need discharge transport arranged? Yes Has discharge transport been arranged? Yes Details of Transportation Parent in a private vehicle What day is the transport expected? 03/24/22 What time is the transport expected? 1000 Discharge Transportation Communication Mode of transport has been discussed with the patient/family. All are agreeable to the plan and understand their responsibilities to ensure the safe transfer. No further CM/SW intervention is anticipated at this time. Post Discharge Care Provider Post Discharge Care Plan Next level of care provider has access to complete EMR Patient Stephanie Coates was voluntarily admitted on 03/22 and discharged on 03/24. Her symptoms on admission included SI. Her discharge diagnosis was Bipolar disorder, current episode depressed, mild or moderate severity, unspecified. Patient was expected to meet goals of participating in groups and agreeing to a safe discharge plan. Patient attended groups and participated actively in them. Patient participated actively in discharge planning process. SW work interventions included initial socialwork assessment and support as needed. Patient was discharged to home and obtained transportation via parents. Mode of transport was discussed with the patient, family, doctors and nurses and all are agreeable to plan and understand their responsibilities to ensure a safe transfer. Patient has insurance that covers medicine and follow up care. Patient medications were filled and sent home with patient. Patient denied resources. Patient has follow up scheduled with psychiatrist, @ the [facility]. Patient will receive social support from family. Patient was agreeable with discharge plans. Patient's family member agreed with discharge plans. Prior to discharge, Patient denied thoughts of harming selfor others. Social work services are terminated at this time. Jamila Ochoa LMSW HOUSE AND RECEIVING SUPERVISOR * Jamila Ochoa MSW - 03/23/2022 3:50 PM CST Pt is discharging tomorrow @ 10AM to go back to her fathers home. Medications should have arrived. AVS has been printed and placed in pt's chart. Pt's father or mother will pick her up. Jamila Ochoa LMSW HOUSE AND RECEIVING SUPERVISOR * Simi Rodriguez MD - 03/23/2022 3:12 PM CST Behavioral Health Transition of Care Patient Name: Stephanie Coates Date of : 2000 Sex: Female Admission Date: 03/22/2022 Discharge Date: 03/23/2022 Admission Diagnosis: Suicidal ideation [R45.851] Discharge Diagnosis: bipolar depressed Reason for inpatient psychiatric hospitalization (documentation of the symptoms/events the patient experienced prior to this hospitalization): depression Metabolic Lab Results: Body mass index is 23 kg/m??. Resulted in the Past 12 Months 03/22/22 1805 03/06/22 1031 02/23/22 0537 02/01/22 1037 GLUCOSE 84 -- < > 88 HGBA1C -- 5.0 -- -- CHOL -- -- -- 127 HDL -- -- -- 58 LDLCALC -- -- -- 63 TRIG -- -- -- 30 NONHDLCHOL -- -- -- 69 < > = values in this interval not displayed. Major Procedures and Tests: Major Procedures and Tests Performed During Inpatient Stay: None Studies Pending at Discharge (Includes Lab and Radiology) None Test Results Pending at Discharge: None Advance Directive: Advance Directive: Patient does not have advance directive Information Provided on Healthcare Directives: No Patient Requests Assistance: No Emergency contact for information related to this stay 18/10 emergency contact information related to inpatient stay: [facility]: [phone] (ask for Charge Nurse) Primary Physician, other healthcare professional, or site for follow up care (AVS has specific follow up appointments): PCP: Marlin Contreras MD [facility] These instructions have been provided to and reviewed with the patient/rn home care prior to discharge: Yes HOUSE AND RECEIVING SUPERVISOR * Simi Lange MD - 03/23/2022 1:39 PM CST Medicine Consult Note Division of Hospital Medicine Name: Stephanie Coates Today: March 23, 2022 : 2000 Age: 21 y.o. female Admit: 03/22/2022 Bed: [id number] Subjective Chief complaint: suicidal ideations. Leukocytosis, likely reactive. Interval History: 21y/o F PMH bipolar affective disorder type 1 tx lithium, atarax & monthly Aristada, tobacco abuse, p/w suicidal ideations. No plan. Recent DC 02/27/22 with recurrent SI & represented to ED. Feeling hopelessness, worthlessness, and helplessness. Voluntary admit for SI. Currently denies desire to hurt herself. States she's been alternating good and bad . Weight stable. UDS neg this admit, lithium 1.3. WBC 13.1, ua and CXR neg, remains afebrile. Objective Medications: Scheduled: lithium ER, 1,200 mg, oral, Daily risperiDONE, 1 mg, oral, Nightly Infusions: PRN: ??? hydrOXYzine ??? nicotine polacrilex ??? traZODone Vitals: 24hr Min/Max: Temp Min: 35.6 ??C (96.1 ??F) Max: 36.9 ??C (98.4 ??F) Pulse Min: 73 Max: 106 BP Min: 103/65 Max: 115/70 Resp Min: 17 Max: 18 SpO2 Min: 98 % Max: 99 % Most Recent: Vitals: 03/23/22 0700 BP: 103/65 Pulse: 73 Resp: 17 Temp: (!) 35.6 ??C (96.1 ??F) SpO2: 98% No intake or output data in the 24 hours ending 03/23/22 0918 Physical Exam Vitals and nursing note reviewed. Exam conducted with a construction controller present. Constitutional: General: She is not in acute distress. Appearance: She is normal weight. She is not ill-appearing, toxic-appearing or diaphoretic. HENT: Head: Normocephalic and atraumatic. Right Ear: External ear normal. Left Ear: External ear normal. Nose: Nose normal. No congestion or rhinorrhea. Mouth/Throat: Mouth: Mucous membranes are moist. Pharynx: Oropharynx is clear. No oropharyngeal exudate or posterior oropharyngeal erythema. Eyes: General: No scleral icterus. Extraocular Movements: Extraocular movements intact. Conjunctiva/sclera: Conjunctivae normal. Pupils: Pupils are equal, round, and reactive to light. Neck: Vascular: No carotid bruit. Cardiovascular: Rate and Rhythm: Normal rate and regular rhythm. Pulmonary: Effort: Pulmonary effort is normal. No respiratory distress. Breath sounds: Normal breath sounds. No stridor. No wheezing, rhonchi or rales. Chest: Chest wall: No tenderness. Abdominal: General: Bowel sounds are normal. There is no distension. Palpations: Abdomen is soft. There is no mass. Tenderness: There is no abdominal tenderness. Hernia: No hernia is present. Musculoskeletal: General: No swelling, tenderness, deformity or signs of injury. Normal range of motion. Cervical back: Normal range of motion and neck supple. No rigidity or tenderness. Right lower leg: No edema. Left lower leg: No edema. Lymphadenopathy: Cervical: No cervical adenopathy. Skin: General: Skin is warm and dry. Capillary Refill: Capillary refill takes less than 2 seconds. Findings: No rash. Neurological: General: No focal deficit present. Mental Status: She is alert. Cranial Nerves: No cranial nerve deficit. Sensory: No sensory deficit. Motor: No weakness. Coordination: Coordination normal. Gait: Gait normal. Deep Tendon Reflexes: Reflexes normal. Comments: Oriented x4, has insight. Psychiatric: Behavior: Behavior normal. Comments: Flat affect, expresses hopelessness. Lab/Diagnostic Review: Recent Results (from the past 36 hour(s)) [place] level Collection Time: 03/22/22 6:05 PM Result Value Ref Range [place] 1.3 (H) 0.6 - 1.2 mmol/L CBC with auto differential Collection Time: 03/22/22 6:05 PM Result Value Ref Range WBC 13.1 (H) 3.8 - 9.9 K/cumm Hgb 12.7 11.9 - 15.5 g/dL Hct 37.7 35.6 - 45.5 % Plt 364 150 - 400 K/cumm MPV 8.9 (L) 9.1 - 12.3 fL RBC 4.02 3.90 - 5.20 M/cumm MCV 93.8 81.3 - 96.4 fL MCH 31.6 27.1 - 33.3 pg MCHC 33.7 32.3 - 35.7 g/dL RDW CV 11.9 11.1 - 14.9 % RDW SD 41.3 35.7 - 48.1 fL NRBC abs 0.00 0.00 - 0.01 K/cumm Comprehensive metabolic panel Collection Time: 03/22/22 6:05 PM Result Value Ref Range Sodium 139 135 - 145 mmol/L Potassium, pl 3.8 3.3 - 4.9 mmol/L Chloride 104 97 - 110 mmol/L CO2 25 22 - 32 mmol/L Anion gap 10 2 - 15 mmol/L BUN 7 (L) 8 - 25 mg/dL Creatinine 0.69 0.60 - 1.10 mg/dL Glucose 84 70 - 199 mg/dL Calcium 9.7 8.5 - 10.3 mg/dL Bilirubin, total 0.3 0.1 - 1.2 mg/dL Protein, pl 7.2 6.5 - 8.5 g/dL Albumin 4.6 3.5 - 5.0 g/dL Alk phos 86 40 - 130 Units/L ALT 13 7 - 45 Units/L AST 16 10 - 45 Units/L Ethanol Collection Time: 03/22/22 6:05 PM Result Value Ref Range Ethanol <10 <=10 mg/dL TSH reflex to free T4 Collection Time: 03/22/22 6:05 PM Result Value Ref Range TSH 1.84 0.30 - 4.20 mcIUnit/mL Differential, auto Collection Time: 03/22/22 6:05 PM Result Value Ref Range Neutrophil abs 8.9 (H) 1.7 - 6.5 K/cumm Imm gran abs 0.1 0.0 - 0.1 K/cumm Lymphocyte abs 2.9 0.8 - 3.3 K/cumm Monocyte abs 1.0 (H) 0.2 - 0.8 K/cumm Eosinophil abs 0.2 0.0 - 0.5 K/cumm Basophil abs 0.1 0.0 - 0.1 K/cumm Neutrophil pct 67.7 % Imm gran pct 0.5 % Lymphocyte pct 22.0 % Monocyte pct 7.8 % Eosinophil pct 1.6 % Basophil pct 0.4 % eGFR Collection Time: 03/22/22 6:05 PM Result Value Ref Range eGFR >90 90 - 130 mL/min/1.73 m2 Drugs of Abuse Screen, Urine without Confirmation Collection Time: 03/22/22 6:22 PM Result Value Ref Range Amphetamine, ur Not Detected CutOff 500ng/mL Barbiturates, ur Not Detected CutOff 200ng/mL Benzodiazepines, ur Not Detected CutOff 100ng/mL Cannabinoids, ur Not Detected CutOff 50 ng/mL Cocaine, ur Not Detected CutOff 150ng/mL Fentanyl, Ur Not Detected Cutoff 1 ng/mL Methadone, ur Not Detected CutOff 300ng/mL Opiates, ur Not Detected CutOff 300ng/mL Oxycodone, ur Not Detected CutOff 100ng/mL Phencyclidine, ur Not Detected CutOff 25 ng/mL Urine Creatinine 35 mg/dL Urinalysis reflex to microscopic and culture Urine Collection Time: 03/22/22 6:22 PM Specimen: Urine Result Value Ref Range Color, ur Straw Yellow Clarity, ur Cloudy (A) Clear Specific gravity, ur 1.009 1.003 - 1.030 pH, urine 7.5 Protein, ur ql Negative Negative Glucose, ur ql Negative Negative Ketones, ur Negative Negative Bilirubin, ur Negative Negative Blood, ur Negative Negative Urobilinogen, ur <2.0 <2.0 mg/dL Nitrite, ur Negative Negative Leukocyte esterase, ur Negative Negative UA reflex comment Reflex conditions for microscopic UA and culture not met. COVID-19 Coronavirus RNA Nasopharyngeal Collection Time: 03/22/22 6:22 PM Specimen: Nasopharyngeal Result Value Ref Range COVID-19 RNA Negative Negative POCT hCG, urine Collection Time: 03/22/22 7:58 PM Result Value Ref Range HCG, ur, POC Negative Lot Number [id number] QC Backgroud Clear Acceptable QC Control Line Acceptable I have reviewed the laboratory results. Imaging Results: MRI Lower Extremity Joint WO Contrast SHAHID CHARLTON MD, PHD LOUISA EMMANUEL M.D. FINAL REPORT The radiology attending physician has personally reviewed this study, and has reviewed and/or edited this written report and agrees with it. ACC# Date Time Exam [id number] Apr 07, 2017 15:58:00 [id number] MR Knee without cont L EXAMINATION: MRI [...] menisci and ligaments. Electronically signed by: Shahid Charlton MD, PHD Requested By: ORLIN EVANS M.D. Dictated By: LOUISA EMMANUEL M.D. on Apr 07 2017 4:30P This document has been electronically signed by: SHAHID CHARLTON MD, PHD on Apr 07 2017 4:45P [id number] CHARLTON MD, PHD LOUISA EMMANUEL M.D. FINAL REPORT The radiology attending physician has personally reviewed this study, and has reviewed and/or edited this written report and agrees with it. Attending: ORLIN EVANS Requesting: ORLIN EVANS Requesting Fax: Attending Fax: Attending ID: [id number] Requesting ID: [id number] Report To 1 ID: [id number] Report To 1 Name: , Report To 1 FAX: [email or web address] Order #: I have independently reviewed and interpreted . [place] level 1.3 WBC 13.1, Hb 12.7, Plts 364 Na 139, K 3.8, Cr 0.69 Normal LFTs TSH Urine HCG neg Covid-19 RNA neg 03/22 Ethanol<10, UDS neg UA cloudy, but neg TSH 1.84 (WNL) Assessment/Plan * Suicidal ideation Assessment & Plan Seen by psychiatry, management as elsewhere. Continue lithium, atarax and aristada for bipolar type1 per psychiatry. Euthyroid. Monitoring for symptom improvement. Cannabis dependence (HCC) Assessment & Plan UDS+cannabinoids this admit. Pt endorses frequent use. Counseled on abstinence, pre-contemplational. Routine general medical examination at a health care facility Assessment & Plan Unremarkable exam this admit. Encouraged routine OP HCM with PCP. 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 Pt came to the ED after having SI. Pt has had two recent admissions, and was last discharged on 02/27. After leaving, patient was unable to get back to her normal self and activities. Pt has been feeling down, and hopeless. 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 Pt has been staying with her mother for support. Pt said she spent her [place]ika with family, but was disappointed because she was unable to enjoy it like she normally does. Pt saidshe is feeling better since being here, and that she is supported. 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 Pt enjoys traveling in her spare time, and listening to all kinds of music. Plan of care: Provide access to leisure activities, and continue to encourage group participation. Provide healthy coping skills, and stress management. BRANT Guzman 03/23/22 1200 Patient Info Marital Status Single Source of Information Interview Socialization Changes in Socialization Decrease in socialization Social Behaviors Eye Contact Occasional Speech Regular rate and rhythm (RRR) Quality of Grooming Good Affect Sad Thought Content Other (Comment) (Clear) Hallucinations (Pt denies both) Insight Good Orientation Orientation Person;Time;Place;Situation Hobbies and Leisure Hobbies/Leisure Interests Crafts/Arts;Exercise;Movies;Sports Changes in Leisure Functioning Decrease in leisure functioning;Lack of enjoyment Life Skills/ Activities of Daily Living Deficits in Functional [place] Poor stress management skills Musical Interests Listens to Music All kinds Recommended Activity Therapy Recommended Activity Therapy Plan Appropriate for group setting HOUSE AND RECEIVING SUPERVISOR * Jamila Ochoa MSW - 03/23/2022 9:09 AM CST Psychiatry Social Work Assessment Clinical Dx: Bipolar affective disorder, remission status unspecified Past Psychiatric History: Past Psychiatric History Previous Self Harm/Suicidal Attempts: No Patient currently seeing an outpatient psychiatrist? : Yes Psychiatrist Name/Number: @ the [facility] Current outpatient case finisher? 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 (Comment) (Pt reports she is working at [employer]) Admission Type: Involuntary Race: Ethnicity: Gender Identity: Female Guardian Type: Self Service : None Source of Information: Patient, Current Chart Chief Complaint: I am on the down side on my bipolar disorder (03/23/22903) Current Situation: Current Situation Housing/Living Enviornment : Homeless with family Income: Employed Financial assistance: Discharge medication assistance needed Work History : Unknown Education Level : High School Diploma, Vocational Training Insurance : [place] Medication : Sw will assist as needed Pharmacy Information : Unknown General Functioning: Pt can complete ADL's and express emotional needs Current Transportation: Family/friends, Own vehicle Use of time: Color, phone Opportunity to Socialize: Yes (03/23/22903) Reason for Current Hospitalization: Precipitating Event: Per ED Patient is a 21-year-old female with history of bipolar disorder recent admission discharge 02/27 on lithium and Aristada presents with SI today without plan. States these feelings have been more less constant waxing and waning since discharge 02/27 and worsening symptoms brought her to emergency de partment. Denies alcohol or recreational substance use. Does use a nicotine vape. No other acute medical complaints. LMP 03/03. Legal History: Legal History Legal Information : Legal history (03/23/22903) Support Systems and Spirituality: Support Systems and Spirituality Support System: Family members, Friends/neighbors, Parent Patient/Significant other participation : Pt had full participation during assessment Support Contact Name/Number: Colten Mock [phone] (Father) Family Perspective: Unknown Past Support System : Family Parents : Lives with father Children : 0 Siblings: 1 brother Do you have a Episcopalian Preference or Affiliation?: No Are there any Episcopalian Practices that are important to maintain while admitted?: No Referral to [employer] : No Hope and Strength during Difficult Times: God Do you have Cultural Factors that are important to you?: No Family History of Mental Illness: Yes Sexual Orientation : Heterosexual Born and Raised: [place], [place] Description of Childhood: Pt reports stable History of physical abuse? : No History of physically abusing others? : No History of sexual abuse?: No History of sexually abusing others? : No History of Mental/Emotional Abuse? : No (03/23/22903) Strengths, Assets, Liabilities and Stressors: Strengths, Assets, Liabilities, and Stressors Strengths (Must Choose Two): Steady employment, Access to housing/residential stability, Financial stability, Interpersonal relationships and supports,i.e., family, friends, peers, Knowledge of medications Patient Assets: Income, Insured, Home, Supportive family, Supportive friends, Psychiatrist Does Pt have access to Employee Assistance Program: No Patient Barriers : Denial/Lack of insight, Negative coping skills Current Stressors: Coping skills (03/23/22903) Social Determinants of Health Tobacco Use: Not [...] More than three times a week Attends Episcopalian Services: Never Active Member of Clubs or [...] of Substance Abuse: Yes Chemical Dependency Insight: Good Insight Risk to Self and Others: Risk [...] No Previous Plans to Harm Another: Denies (03/23/22903) Affect and Mood: Affect/Mood Affect: Pleasant Mood: Depressed (03/23/22903) Hopelessness, Helpfulness, Worthlessness: Hopelessness Helplessness Worthlessness Feelings of Hopelessness: Yes Feelings of Helplessness: Yes Feelings of Worthlessness: Yes (03/23/22903) Thought Content: Thought Content Delusions: None Hallucinations: None Ambivalence: Yes (03/23/22903) Behavior: Behavior Eye Contact: Good Exhibited Behaviors/Symptoms : Depressed, Compliant with treatment/expectations, Friendly (03/23/22903) Past Psych Hx: Past Psychiatric History Previous Self Harm/Suicidal Attempts: No Patient currently seeing an outpatient psychiatrist? : Yes Psychiatrist Name/Number: @ the [facility] Current outpatient case finisher? : No Mental Health Onset: 1 year ago Previous Psychiatric Admission: Yes (Comment) (03/23/22903) Problem/Goals: Problems/Goals Problems Identified by Social Work: Mental Health Short term goals: Stabilize and Discharge Patient Stated Goals: Adjust medications Intermediate Goals: Medication Compliance Social Work Plan/Intervention: Stabilize, Resources, follow up, transportation, housing, medicationassistance, socialization, and discharge (03/23/22903) Discharge Planning: SW Discharge Planning Support System: Family members, Friends/neighbors, [...] Follow Up: Pt has follow up scheduled (03/23/22903) Social Determinants of Health Tobacco Use: Not [...] More than three times a week Attends Episcopalian Services: Never Active Member of Clubs or [...] Last Year: No Collaboration: Patient, Current Chart Impressions: Stephanie Coates, is a 21 y.o., single, unknown employment status, Domiciled female with a history of recently diagnosed Bipolar I Disorder who was brought to the hospital for SI. During assessment ptreports she has been feeling very depressed. Denying SI/HI/AH/VH. Pt reports she would like to see doctor and discuss a medication adjustment. Recommendations: SW recommends Pt be monitored for safety and encouraged to participate in Tx groups. SW will coordinate outpatient services and work with Pt, Pt support, and Tx team to discharge Pt to appropriate level of care. Jamila Ochoa LMSW HOUSE AND RECEIVING SUPERVISOR documented in this encounter H&P Notes * Simi Rodriguez MD - 03/23/2022 11:10 AM CST Inpatient Psychiatric Attending Intake Assessment CURRENT DIAGNOSES: Principal Problem: Bipolar disorder, current episode depressed, mild or moderate severity, unspecified (HCC) Active Problems: Cannabis dependence (HCC) Routine general medical examination at a health care facility REASON FOR INPATIENT ADMISSION: passive SI INITIAL CERTIFICATION: The patient requires active inpatient [...] condition . IDENTIFYING INFORMATION: This is the at least 5th psychiatric admission for this 21 y.o. year old, single, White ,unknown employment status female with a history of bipolar disorder who was brought to the hospital by ambulance for passive SI. 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 Patient known to me from previous admission CHIEF COMPLAINT: Just depressed from going through that manic episode HISTORY OF PRESENT ILLNESS: Patient known to me from [facility] admission for manic episode with psychotic features in January 2022.She was loaded on aristada 882mg maintenance and was also discharged with thorazine 100mg TID. She was readmitted 02/23/22 to [facility], thorazine was discontinued and replaced with risperdal 2mg BID and lithium 450mg BID was started. She was then seen on 03/05/22 in [facility] resident clinic. Risperdal was discontinued and lithium was increased to 1200mg daily on 03/09/22 based on 0.4 level. Since the increase in lithium, patient reports jittery and dampened mood. She attributed this to risperdal but lithium seems more likely culprit for tremors and sub-euthymic mood. She is willing to resume 02/27/22 d ischarge regimen of risperdal 2mg BID, lithium 450mg BID, and aristada 882mg monthly last received 03/05/22. She reports she has been staying with her mother. She denies SI and states she feels she would be more comfortable with dc from hospital on 03/24 and follow up with [facility]. Will order med[facility]. Patient education regarding lithium provided. She denied any stressor with family over the holiday, described time with family as good . History reviewed. No pertinent past medical history. History reviewed. No pertinent surgical history. ALLERGIES: Allergies Allergen Reactions Sulfa (Sulfonamide Antibiotics) Hives Sulfamethoxazole-Trimethoprim Itching and Rash MEDICATIONS: Facility-Administered Medications Prior to Admission Medication Dose Route Frequency Provider Last Rate Last Admin ARIPiprazole lauroxil (ARISTADA) intramuscular syringe 882 mg 882 mg intramuscular every 4 weeks Bettie Traore MD 882 mg at 03/05/22 1312 Medications Prior to Admission Medication Sig Dispense Refill Last Dose hydrOXYzine (ATARAX) 25 mg tablet Take 2 tablets (50 mg total) by mouth 2 (two) times a day as needed for anxiety 60 tablet 2 03/21/2022 at 1400 lithium ER (ESKALITH) 450 mg CR tablet Take 2 tablets (900 mg total) by mouth daily 60 tablet 1 03/22/2022 at 1000 lithium ER (LITHOBID) 300 mg CR tablet Take 1 tablet (300 mg total) by mouth daily 30 tablet 2 03/22/2022 at 1000 nicotine polacrilex (NICORETTE) 2 mg gum Chew 1 each (2 mg total) as needed for smoking cessation 100 each 0 More than a month risperiDONE (RisperDAL M-TABS) 2 mg disintegrating tablet Take 2 tablets (4 mg total) by mouth nightly 60 tablet 1 03/21/2022 at 1700 traZODone (DESYREL) 50 mg tablet Take 1 tablet (50 mg total) by mouth nightly 30 tablet 0 03/21/2022 at 2100 Current Facility-Administered Medications Medication Dose Route Frequency Provider Last Rate Last Admin hydrOXYzine (ATARAX) tablet 10 mg 10 mg oral Q4H PRN Simi Rodriguez MD [START ON 03/24/2022] lithium ER (ESKALITH) extended release tablet 450 mg 450 mg oral BID with meals (bkfst, dinner) Simi Rodriguez MD nicotine polacrilex (NICORETTE) gum 2 mg 2 mg mouth/throat Q2H PRN Ibrahima Larose MD risperiDONE (RisperDAL) tablet 2 mg 2 mg oral BID Simi Rodriguez MD traZODone (DESYREL) tablet 100 mg 100 mg oral Nightly PRN Simi Rodriguez MD Not Compliant with the following meds: compliant History reviewed. No pertinent family history. Social History Tobacco Use Smoking status: Every Day Types: Vaping Start date: 03/28/2017 Last attempt to quit: 03/23/2022 Smokeless tobacco: None Substance and Sexual Activity Drug use: None Sexual activity: None Alcohol Use: Not At Risk Frequency of Alcohol Consumption: Monthly or less Average Number of Drinks: 1 or 2 Frequency of Binge Drinking: Never Social History Social History Narrative Not on file ASSETS: housing, interested in [facility], parental support REVIEW OF SYSTEMS: Please see GRAIN FARMER/MD Consult note PHYSICAL EXAMINATION: Vitals: 03/23/22 0700 BP: 103/65 Pulse: 73 Resp: 17 Temp: (!) 35.6 ??C (96.1 ??F) SpO2: 98% No intake/output data recorded. No intake/output data recorded. Please see GRAIN FARMER/MD Consult note for additional details NEUROLOGICAL EXAMINATION: Please see GRAIN FARMER/MD Consult MENTAL STATUS EXAMINATION: General Appearance and Behavior: Appears stated age No apparent distress sedentary Good eye contact Cooperative Speech: Regular rate Normal rhythm Normal volume Normal amount Normal tone Spontaneous Normal latency (<3 seconds) Flow of Thought: logical, sequential, and goal-directed Content of Thought: No SI/HI/AH/VH Mood: I'm good, just mellow Affect: restricted range, normal amount, appropriate to conversation/situation, stable, mood-congruent, and subdued Insight: good Judgment: good Sensorium: alert, awake, and oriented x 3 Calculations: not done/clinically indicated Abstraction: not done/clinically indicated Language: average vocabulary Attention: normal based on conversation/exam Memory: normal based on conversation/exam Fund of Knowledge: normal or above average based on conversation/exam LABORATORY/DIAGNOSTIC DATA REVIEW: Laboratory review: Lab results in the last 48 hours: Recent Results (from the past 48 hour(s)) [place] level Collection Time: 03/22/22 6:05 PM Result Value Ref Range [place] 1.3 (H) 0.6 - 1.2 mmol/L CBC with auto differential Collection Time: 03/22/22 6:05 PM Result Value Ref Range WBC 13.1 (H) 3.8 - 9.9 K/cumm Hgb 12.7 11.9 - 15.5 g/dL Hct 37.7 35.6 - 45.5 % Plt 364 150 - 400 K/cumm MPV 8.9 (L) 9.1 - 12.3 fL RBC 4.02 3.90 - 5.20 M/cumm MCV 93.8 81.3 - 96.4 fL MCH 31.6 27.1 - 33.3 pg MCHC 33.7 32.3 - 35.7 g/dL RDW CV 11.9 11.1 - 14.9 % RDW SD 41.3 35.7 - 48.1 fL NRBC abs 0.00 0.00 - 0.01 K/cumm Comprehensive metabolic panel Collection Time: 03/22/22 6:05 PM Result Value Ref Range Sodium 139 135 - 145 mmol/L Potassium, pl 3.8 3.3 - 4.9 mmol/L Chloride 104 97 - 110 mmol/L CO2 25 22 - 32 mmol/L Anion gap 10 2 - 15 mmol/L BUN 7 (L) 8 - 25 mg/dL Creatinine 0.69 0.60 - 1.10 mg/dL Glucose 84 70 - 199 mg/dL Calcium 9.7 8.5 - 10.3 mg/dL Bilirubin, total 0.3 0.1 - 1.2 mg/dL Protein, pl 7.2 6.5 - 8.5 g/dL Albumin 4.6 3.5 - 5.0 g/dL Alk phos 86 40 - 130 Units/L ALT 13 7 - 45 Units/L AST 16 10 - 45 Units/L Ethanol Collection Time: 03/22/22 6:05 PM Result Value Ref Range Ethanol <10 <=10 mg/dL TSH reflex to free T4 Collection Time: 03/22/22 6:05 PM Result Value Ref Range TSH 1.84 0.30 - 4.20 mcIUnit/mL Differential, auto Collection Time: 03/22/22 6:05 PM Result Value Ref Range Neutrophil abs 8.9 (H) 1.7 - 6.5 K/cumm Imm gran abs 0.1 0.0 - 0.1 K/cumm Lymphocyte abs 2.9 0.8 - 3.3 K/cumm Monocyte abs 1.0 (H) 0.2 - 0.8 K/cumm Eosinophil abs 0.2 0.0 - 0.5 K/cumm Basophil abs 0.1 0.0 - 0.1 K/cumm Neutrophil pct 67.7 % Imm gran pct 0.5 % Lymphocyte pct 22.0 % Monocyte pct 7.8 % Eosinophil pct 1.6 % Basophil pct 0.4 % eGFR Collection Time: 03/22/22 6:05 PM Result Value Ref Range eGFR >90 90 - 130 mL/min/1.73 m2 Drugs of Abuse Screen, Urine without Confirmation Collection Time: 03/22/22 6:22 PM Result Value Ref Range Amphetamine, ur Not Detected CutOff 500ng/mL Barbiturates, ur Not Detected CutOff 200ng/mL Benzodiazepines, ur Not Detected CutOff 100ng/mL Cannabinoids, ur Not Detected CutOff 50 ng/mL Cocaine, ur Not Detected CutOff 150ng/mL Fentanyl, Ur Not Detected Cutoff 1 ng/mL Methadone, ur Not Detected CutOff 300ng/mL Opiates, ur Not Detected CutOff 300ng/mL Oxycodone, ur Not Detected CutOff 100ng/mL Phencyclidine, ur Not Detected CutOff 25 ng/mL Urine Creatinine 35 mg/dL Urinalysis reflex to microscopic and culture Urine Collection Time: 03/22/22 6:22 PM Specimen: Urine Result Value Ref Range Color, ur Straw Yellow Clarity, ur Cloudy (A) Clear Specific gravity, ur 1.009 1.003 - 1.030 pH, urine 7.5 Protein, ur ql Negative Negative Glucose, ur ql Negative Negative Ketones, ur Negative Negative Bilirubin, ur Negative Negative Blood, ur Negative Negative Urobilinogen, ur <2.0 <2.0 mg/dL Nitrite, ur Negative Negative Leukocyte esterase, ur Negative Negative UA reflex comment Reflex conditions for microscopic UA and culture not met. 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 She apparently was doing well on 02/27 discharge with lithium 450mg BID and risperdal 2mg BID but reports tremor and subpar mood since lithium was increased to 1200mg TDD based on lab result on 03/09/22. No eladio, psychosis or SI on the current admission.She is interested in resuming 02/27/22 regimen and follow up with IOP plan she is making with her mother with whom she is currently residing. Plan:voluntary admission. Last received aristada 882mg IM on 03/05/22. Resume risperdal 2mg BID and lithium 450mg BID. PRNs for comfort and safety. Sw and internal medicine consultation. Encourage active participation in psychotherapeutic groups and discharge planning. Encouraged patient to call moth er today and she anticipates discharge on 03/24/22 to transition to IOP program HOUSE AND RECEIVING SUPERVISOR documented in this encounter Nursing Notes * Emerald Alvarado RN - 03/24/2022 10:56 AM CST Patient discharged from unit at 1055 via mom to home. All discharge instructions provided and patient verbalized understanding. Discharge medications and follow up appointments provided. Mood stable and appropriate for situation. Denies SI/HI/AH/VH at this time. Patient verbalized understanding. Patient property returned and all education points completed with patient understanding. Safety beaconremoved. HOUSE AND RECEIVING SUPERVISOR * Ariana Patel RN - 03/23/2022 9:07 PM CST Patient was initially laying in bed in room. Patient got up and came to [facility] for 2000 snack and medication. Patient is calm, cooperative and medication compliant. Patient had no complaints of pain and scored at 0. Depression-5/Anxiety-3.. No audile/visual hallucinations, SI or HI admitted. Patient goal for tonight is to sleep peacefully . Will continue to monitor paitent. @ 2220 Patient is currently laying in bed sleeping. RN told patient she will give her sleeping medication but patient is sleeping. Will continue to monitor patient. @ 0635 Patient had an uneventful night. Patient slept a total of 8 hours. Will continue to monitor pateint. HOUSE AND RECEIVING SUPERVISOR HOUSE AND RECEIVING SUPERVISOR HOUSE AND RECEIVING SUPERVISOR * Krystina French RN - 03/23/2022 3:31 PM CST Throughout this shift Stephanie Coates appears calm and cooperated with assessment. Remains alert and oriented x 4. Isolated to room with minimal interactions. Remain pleasant. Denied SI/HI. Reported anxiety and depression. Denies delusions and hallucinations. Compliant with medication and treatmentthis morning. Patient however refused risperidone she reports medication makes her jittery and she normally takes it at nights patient report I am not fu...haresh psychotic I am depressed I don't want that No complains of pain. No other complains voiced. Will continue to monitor and provide support for patient. HOUSE AND RECEIVING SUPERVISOR HOUSE AND RECEIVING SUPERVISOR HOUSE AND RECEIVING SUPERVISOR * Ariana Patel RN - 03/22/2022 11:10 PM CST Patient arrived as a voluntary admission. Patient presented to [facility] Emergency Room with complaints of Suicidal Idealations. Patient has a PMH of Bipolar. Patient arrived calm, quiet, cooperative and medication compliant. Patient admitted to feeling hopelessness, worthlessness, and helplessness. Vitals taken and are stable. Patient changed into PSC scrubs and skin assessment is normal with multiple tattoos and has a nipple ring on the right nipple.Patient belongings inventoried by [facility] and placed in Bin #21 and valuables secured with Security. Patient ambulated up the the floor with RNand Security. Patient toured unit, ate sandwich, chips, fruit and drank juice. Patient later returned to her room. MD notified of patient arrival and orders written (to continue home regime medications). ID Band, Arm Band, and [place] placed on patient. Patient has no complaints of pain and scored at 0. Depression-6/Anxiety-7. No audible/visual hallucinations, SI or HI admitted. Patient goal or tonight is to get some good sleep . Patient requested/received Atarax 50 mg for anxiety and Trazodone 50 mg for insomnia. @ 0005 F/U Hydroxyzine/Trazodone: Patient laying in bed sleeping. Will continue to monitor patient. @ 0700 Patient had an uneventful night. Patient slept a total of 6.9 hours. Will continue to monitor patient. HOUSE AND RECEIVING SUPERVISOR HOUSE AND RECEIVING SUPERVISOR HOUSE AND RECEIVING SUPERVISOR HOUSE AND RECEIVING SUPERVISOR documented in this encounter ED Notes * Silvestre Sanchez MD - 03/22/2022 5:57 PM CSTAssociated Order(s): Critical Care PCP: Marlin Contreras MD Triage Pt arrives via EMS d/t SI without a plan. States she had a manic episode and is coming down from it. Recent diagnosis bipolar. Takes lithium, atarax, and a monthly shot. Nursing No notes on file HPI Chief Complaint Patient presents with Suicidal Ideation Patient is a 21-year-old female with history of bipolar disorder recent admission discharge 02/27 on lithium and Aristada presents with SI today without plan. States these feelings have been more less constant waxing and waning since discharge 02/27 and worsening symptoms brought her to emergency department. Denies alcohol or recreational substance use. Does use a nicotine vape. No other acute medical complaints. LMP 03/03. History provided by: Patient Mental Health Problem Presenting symptoms: depression and suicidal thoughts Presenting symptoms: no aggressive behavior, no hallucinations, no homicidal ideas, no suicidal threats and no suicide attempt Degree of incapacity (severity): Moderate Onset quality: Gradual Duration: 1 month Timing: Constant Progression: Worsening Chronicity: Recurrent Context: not alcohol use, not drug abuse and not stressful life event Treatment compliance: None of the time Time since last psychoactive medication taken: 9 hours Worsened by: Nothing Relieved by: Nothing Ineffective treatments: Antidepressants and mood stabilizers Associated symptoms: feelings of worthlessness Associated symptoms: no abdominal pain, no appetite change, no chest pain and no headaches Risk factors: hx of mental illness and recent psychiatric admission Patient History: Patient Active Problem List Diagnosis Date Noted Suicidal ideation 03/22/2022 Bipolar affective disorder type 1, current episode manic, severe, with psychotic symptoms 02/23/2022 Cannabis dependence ([facility]) 02/02/2022 Routine general medical examination at a health care facility 02/02/2022 Bipolar affective disorder, current episode manic with psychotic symptoms ([facility]) ([facility]) 02/01/2022 No past medical history on file. No past surgical history on file. No family history on file. Social History Tobacco Use Smoking status: Unknown [...] file Review of Systems Review of Systems Constitutional: Negative for appetite change, chills and fever. HENT: Negative for rhinorrhea. Eyes: Negative for visual disturbance. Respiratory: Negative for cough and shortness of breath. Cardiovascular: Negative for chest pain. Gastrointestinal: Negative for abdominal pain, diarrhea, nausea and vomiting. Genitourinary: Negative for difficulty urinating. Musculoskeletal: Negative for back pain. Skin: Negative for rash. Neurological: Negative for dizziness, light-headedness and headaches. Psychiatric/Behavioral: Positive for suicidal ideas. Negative for hallucinations and homicidal ideas. All other systems reviewed and are negative. Physical Exam ED Triage Vitals Temp Pulse Resp BP SpO2 03/22/22181403/22/22181403/22/22181403/22/22181403/22/221814 36.9 ??C (98.4 ??F) 105 18 112/72 99 % Temp src Heart Rate Source Patient Position BP Location FiO2 (%) 03/22/221814 -- -- -- -- Oral Height Height Method Weight Weight Method 03/22/22174603/22/22174603/22/221746 -- 1.626 m (5' 4 ) Stated 59 kg (130 lb) Vitals: 03/22/22174603/22/221814 BP: 112/72 Pulse: 105 Resp: 18 Temp: 36.9 ??C (98.4 ??F) TempSrc: Oral SpO2: 99% Weight: 59 kg (130 lb) 59 kg (130 lb) Height: 162.6 cm (5' 4 ) Physical Exam Vitals and nursing note reviewed. Constitutional: General: She is awake. Appearance: Normal appearance. She is well-developed. HENT: Head: Normocephalic and atraumatic. Nose: No nasal deformity. Mouth/Throat: Mouth: Mucous membranes are moist. Eyes: Conjunctiva/sclera: Right eye: Right conjunctiva is not injected. Left eye: Left conjunctiva is not injected. Pupils: Right eye: Pupil is round. Left eye: Pupil is round. Cardiovascular: Rate and Rhythm: Normal rate and regular rhythm. Heart sounds: No murmur heard. No friction rub. No gallop. Pulmonary: Effort: Pulmonary effort is normal. No accessory muscle usage or respiratory distress. Breath sounds: Normal breath sounds. No stridor. No wheezing, rhonchi or rales. Abdominal: General: Bowel sounds are normal. There is no distension. Palpations: Abdomen is soft. Tenderness: There is no abdominal tenderness. There is no guarding or rebound. Hernia: There is no hernia in the umbilical area. Musculoskeletal: Right ankle: No deformity. Left ankle: No deformity. Skin: General: Skin is warm and dry. Comments: No facial rash Neurological: Mental Status: She is alert. Cranial Nerves: No dysarthria. Gait: Gait normal. Psychiatric: Mood and Affect: Mood and affect normal. Comments: Appears to have normal judgement based upon interview MDM MDM Number of Diagnoses or Management Options Suicidal ideation Diagnosis management comments: 21-year-old female with recent hospital admission for bipolar disorder on lithium and Aristada presents with increase in SI/depression. Has had no attempts at self-harm. No acute medical complaints. Is amenable for voluntary admission for psychiatry assessment. Will plan for screening labs and likely disposition to [facility]. Critical Care Performed by: Silvsetre Sanchez MD Authorized by: Silvestre Sanchez MD Critical care provider statement: As reflected in the history, physical exam, orders, notes, and/or MDM, I was personally present while the patient was critically ill and provided critical care services for 30 minutes, excluding timeinvolved in separately billable procedures. Critical care was necessary to treat or prevent imminent or life- threatening deterioration of the following condition(s): suicidal/homicidal ideation Critical care was time spent by me providing the following: psychological evaluation with medical clearance I provided emergent necessary critical care medicine services to this patient. I ordered and reviewed test results and/or imaging studies. I spent time discussing the management of this critically ill patient with consultants and the medical staff. I spent time discussing the management and therapeutic options for this critically ill patient with the patient themselves or with the appropriate designated surrogate decision-maker. I spent time documenting in the medical record. Labs Reviewed URINALYSIS AND REFLEX TO MICROSCOPIC AND CULTURE - Abnormal Result Value Color, ur Straw Clarity, ur Cloudy (*) Specific gravity, ur 1.009 pH, urine 7.5 Protein, ur ql Negative Glucose, ur ql Negative Ketones, ur Negative Bilirubin, ur Negative Blood, ur Negative Urobilinogen, ur <2.0 Nitrite, ur Negative Leukocyte esterase, ur Negative UA reflex comment Value: Reflex conditions for microscopic UA and culture not met. Narrative: Urine pH is affected by diet, medications, systemic acid-base disturbances, and renal tubular function. pH may affect urinary stone formation. For example, urine pH below 6.0 may help reduce the tendency for calcium phosphate stones and pH greater than 6.0 may reduce the tendency for uric acid stone formation. Source: [facility] [employer].Last revised 04-07-2017 LITHIUM LEVEL - Abnormal [place] 1.3 (*) CBC WITH AUTO DIFFERENTIAL - Abnormal WBC 13.1 (*) Hgb 12.7 Hct 37.7 Plt 364 MPV 8.9 (*) RBC 4.02 MCV 93.8 MCH 31.6 MCHC 33.7 RDW CV 11.9 RDW SD 41.3 NRBC abs 0.00 COMPREHENSIVE METABOLIC PANEL - Abnormal Sodium 139 Potassium, pl 3.8 Chloride 104 CO2 25 Anion gap 10 BUN 7 (*) Creatinine 0.69 Glucose 84 Calcium 9.7 Bilirubin, total 0.3 Protein, pl 7.2 Albumin 4.6 Alk phos 86 ALT 13 AST 16 DIFFERENTIAL AUTO - Abnormal Neutrophil abs 8.9 (*) Imm gran abs 0.1 Lymphocyte abs 2.9 Monocyte abs 1.0 (*) Eosinophil abs 0.2 Basophil abs 0.1 Neutrophil pct 67.7 Imm gran pct 0.5 Lymphocyte pct 22.0 Monocyte pct 7.8 Eosinophil pct 1.6 Basophil pct 0.4 POCT HCG, URINE - Normal HCG, ur, POC Negative Lot Number [id number] QC Backgroud Clear Acceptable QC Control Line Acceptable COVID-19 CORONAVIRUS RNA COVID-19 RNA Negative Narrative: Is the patient experiencing any symptoms consistent with COVID (eg. Fever, cough, shortness of breath)?->No What is the reason for testing?->Screening prior to admission to [facility] (Rapid) Interpretive data: Synonyms for this test include: PCR and NAAT . This test is performed using the [employer] Xpert Xpress plus assay. This is a real-time RT-PCR test intended for the qualitative detection of nucleic acid from the SARS-CoV-2. This assay has been reviewed by the FDA for Emergency Use Authorization (EUA). The performance characteristics have been verified by the performing laboratory. Results must be considered in the clinical context and a negative result does not rule out infection. Interpretive data last revised August 26, 2021. Interpretive data: Synonyms for this test include: PCR and NAAT . This test is performed using the [employer] Xpert Xpress plus assay. This is a real-time RT-PCR test intended for the qualitative detection of nucleic acid from the SARS-CoV-2. This assay has been reviewed by the FDA for Emergency Use Authorization (EUA). The performance characteristics have been verified by the performing laboratory. Results must be considered in the clinical context and a negative result does not rule out infection. Interpretive data last revised August 26, 2021. ETHANOL Ethanol <10 DRUGS OF ABUSE SCREEN, URINE WITHOUT CONFIRMATION Amphetamine, ur Not Detected Barbiturates, ur Not Detected Benzodiazepines, ur Not Detected Cannabinoids, ur Not Detected Cocaine, ur Not Detected Fentanyl, Ur Not Detected Methadone, ur Not Detected Opiates, ur Not Detected Oxycodone, ur Not Detected Phencyclidine, ur Not Detected Urine Creatinine 35 Narrative: Drug of Abuse screening is performed by immunoassay for medical purposes only. This is not to be used for Pain Management purposes. TSH REFLEX TO FREE T4 TSH 1.84 EGFR eGFR >90 HCG, URINE, QUALITATIVE No orders to display Suicidal ideation ED Prescriptions None Discharge Instructions None Follow-up No follow-up provider specified. Home Care Manager completed by using [employer] Fluency Direct speaking software, therefore, transcriptionvariances of spelling and dictation may occur. Silvestre Sanchez MD 03/22/222129 HOUSE AND RECEIVING SUPERVISOR * Harry Sharp RN - 03/22/2022 5:43 PM CST Pt arrives via EMS d/t SI without a plan. States she had a manic episode and is coming down from it. Recent diagnosis bipolar. Takes lithium, atarax, and a monthly shot. HOUSE AND RECEIVING SUPERVISOR documented in this encounter Miscellaneous Notes * Plan of Care - Ariana Patel RN - 03/23/2022 9:32 PM CST Goals: Clinical Goals for the Shift: sleep peacefully Problem: Health Behavior: Goal: Understanding of discharge needs will improve Outcome: Progressing Problem: Lack of Knowledge: Goal: Ability to make informed decisions regarding treatment will improve Outcome: Progressing Problem: Coping: Goal: Ability to cope will improve Outcome: Progressing Problem: Health Behavior: Goal: Identification of resources available to assist in meeting health care needs will improve Outcome: Progressing Goal: Decreased thoughts of self harm Outcome: Progressing Problem: Medication: Goal: Compliance with prescribed medication regimen will improve Outcome: Progressing Problem: Safety: Goal: Ability to remain free from injury will improve Outcome: Progressing Goal: Verbalizations of safety and security will increase Outcome: Progressing Problem: Self-Concept: Goal: Ability to disclose and discuss suicidal ideas will improve Outcome: Progressing Goal: Ability to verbalize positive feelings about self will improve Outcome: Progressing HOUSE AND RECEIVING SUPERVISOR * Assessment & Plan Note - Simi Lange MD - 03/23/2022 1:38 PM WAREHOUSE AND RECEIVING SUPERVISOR Associated Problem(s): Routine general medical examination at a health care facility Unremarkable exam this admit. Encouraged routine OP HCM with PCP. HOUSE AND RECEIVING SUPERVISOR * Assessment & Plan Note - Simi Lange MD - 03/23/2022 1:36 PM WAREHOUSE AND RECEIVING SUPERVISOR Associated Problem(s): Suicidal ideation (Resolved 03/23/2022) Seen by psychiatry, management as elsewhere. Continue lithium, atarax and aristada for bipolar type1 per psychiatry. Euthyroid. Monitoring for symptom improvement. HOUSE AND RECEIVING SUPERVISOR * Assessment & Plan Note - Simi Lange MD - 03/23/2022 1:36 PM WAREHOUSE AND RECEIVING SUPERVISOR Associated Problem(s): Cannabis dependence (HCC) (Resolved 12/12/2023) UDS+cannabinoids this admit. Pt endorses frequent use. Counseled on abstinence, pre-contemplational. HOUSE AND RECEIVING SUPERVISOR * Plan of Care - Krystina French RN - 03/23/2022 10:59 AM CST Problem: Health Behavior: Goal: Decreased thoughts of self harm Outcome: Progressing Problem: Medication: Goal: Compliance with prescribed medication regimen will improve Outcome: Progressing Problem: Safety: Goal: Ability to remain free from injury will improve Outcome: Progressing Goal: Verbalizations of safety and security will increase Outcome: Progressing Problem: Self-Concept: Goal: Ability to disclose and discuss suicidal ideas will improve Outcome: Progressing Goal: Ability to verbalize positive feelings about self will improve Outcome: Progressing HOUSE AND RECEIVING SUPERVISOR * Subjective & Objective - Simi Lange MD - 03/23/2022 9:18 AM WAREHOUSE AND RECEIVING SUPERVISOR Medicine Consult Note Division of Hospital Medicine Name: Stephanie Coates Today: March 23, 2022 : 2000 Age: 21 y.o. female Admit: 03/22/2022 Bed: [id number] Subjective Chief complaint: suicidal ideations. Leukocytosis, likely reactive. Interval History: 21y/o F PMH bipolar affective disorder type 1 tx lithium, atarax & monthly Aristada, tobacco abuse, p/w suicidal ideations. No plan. Recent DC 02/27/22 with recurrent SI & represented to ED. Feeling hopelessness, worthlessness, and helplessness. Voluntary admit for SI. Currently denies desire to hurt herself. States she's been alternating good and bad . Weight stable. UDS neg this admit, lithium 1.3. WBC 13.1, ua and CXR neg, remains afebrile. Objective Medications: Scheduled: lithium ER, 1,200 mg, oral, Daily risperiDONE, 1 mg, oral, Nightly Infusions: PRN: hydrOXYzine nicotine polacrilex traZODone Vitals: 24hr Min/Max: Temp Min: 35.6 ??C (96.1 ??F) Max: 36.9 ??C (98.4 ??F) Pulse Min: 73 Max: 106 BP Min: 103/65 Max: 115/70 Resp Min: 17 Max: 18 SpO2 Min: 98 % Max: 99 % Most Recent: Vitals: 03/23/22 0700 BP: 103/65 Pulse: 73 Resp: 17 Temp: (!) 35.6 ??C (96.1 ??F) SpO2: 98% No intake or output data in the 24 hours ending 03/23/22 0918 Physical Exam Vitals and nursing note reviewed. Exam conducted with a construction controller present. Constitutional: General: She is not in acute distress. Appearance: She is normal weight. She is not ill-appearing, toxic-appearing or diaphoretic. HENT: Head: Normocephalic and atraumatic. Right Ear: External ear normal. Left Ear: External ear normal. Nose: Nose normal. No congestion or rhinorrhea. Mouth/Throat: Mouth: Mucous membranes are moist. Pharynx: Oropharynx is clear. No oropharyngeal exudate or posterior oropharyngeal erythema. Eyes: General: No scleral icterus. Extraocular Movements: Extraocular movements intact. Conjunctiva/sclera: Conjunctivae normal. Pupils: Pupils are equal, round, and reactive to light. Neck: Vascular: No carotid bruit. Cardiovascular: Rate and Rhythm: Normal rate and regular rhythm. Pulmonary: Effort: Pulmonary effort is normal. No respiratory distress. Breath sounds: Normal breath sounds. No stridor. No wheezing, rhonchi or rales. Chest: Chest wall: No tenderness. Abdominal: General: Bowel sounds are normal. There is no distension. Palpations: Abdomen is soft. There is no mass. Tenderness: There is no abdominal tenderness. Hernia: No hernia is present. Musculoskeletal: General: No swelling, tenderness, deformity or signs of injury. Normal range of motion. Cervical back: Normal range of motion and neck supple. No rigidity or tenderness. Right lower leg: No edema. Left lower leg: No edema. Lymphadenopathy: Cervical: No cervical adenopathy. Skin: General: Skin is warm and dry. Capillary Refill: Capillary refill takes less than 2 seconds. Findings: No rash. Neurological: General: No focal deficit present. Mental Status: She is alert. Cranial Nerves: No cranial nerve deficit. Sensory: No sensory deficit. Motor: No weakness. Coordination: Coordination normal. Gait: Gait normal. Deep Tendon Reflexes: Reflexes normal. Comments: Oriented x4, has insight. Psychiatric: Behavior: Behavior normal. Comments: Flat affect, expresses hopelessness. Lab/Diagnostic Review: Recent Results (from the past 36 hour(s)) [place] level Collection Time: 03/22/22 6:05 PM Result Value Ref Range [place] 1.3 (H) 0.6 - 1.2 mmol/L CBC with auto differential Collection Time: 03/22/22 6:05 PM Result Value Ref Range WBC 13.1 (H) 3.8 - 9.9 K/cumm Hgb 12.7 11.9 - 15.5 g/dL Hct 37.7 35.6 - 45.5 % Plt 364 150 - 400 K/cumm MPV 8.9 (L) 9.1 - 12.3 fL RBC 4.02 3.90 - 5.20 M/cumm MCV 93.8 81.3 - 96.4 fL MCH 31.6 27.1 - 33.3 pg MCHC 33.7 32.3 - 35.7 g/dL RDW CV 11.9 11.1 - 14.9 % RDW SD 41.3 35.7 - 48.1 fL NRBC abs 0.00 0.00 - 0.01 K/cumm Comprehensive metabolic panel Collection Time: 03/22/22 6:05 PM Result Value Ref Range Sodium 139 135 - 145 mmol/L Potassium, pl 3.8 3.3 - 4.9 mmol/L Chloride 104 97 - 110 mmol/L CO2 25 22 - 32 mmol/L Anion gap 10 2 - 15 mmol/L BUN 7 (L) 8 - 25 mg/dL Creatinine 0.69 0.60 - 1.10 mg/dL Glucose 84 70 - 199 mg/dL Calcium 9.7 8.5 - 10.3 mg/dL Bilirubin, total 0.3 0.1 - 1.2 mg/dL Protein, pl 7.2 6.5 - 8.5 g/dL Albumin 4.6 3.5 - 5.0 g/dL Alk phos 86 40 - 130 Units/L ALT 13 7 - 45 Units/L AST 16 10 - 45 Units/L Ethanol Collection Time: 03/22/22 6:05 PM Result Value Ref Range Ethanol <10 <=10 mg/dL TSH reflex to free T4 Collection Time: 03/22/22 6:05 PM Result Value Ref Range TSH 1.84 0.30 - 4.20 mcIUnit/mL Differential, auto Collection Time: 03/22/22 6:05 PM Result Value Ref Range Neutrophil abs 8.9 (H) 1.7 - 6.5 K/cumm Imm gran abs 0.1 0.0 - 0.1 K/cumm Lymphocyte abs 2.9 0.8 - 3.3 K/cumm Monocyte abs 1.0 (H) 0.2 - 0.8 K/cumm Eosinophil abs 0.2 0.0 - 0.5 K/cumm Basophil abs 0.1 0.0 - 0.1 K/cumm Neutrophil pct 67.7 % Imm gran pct 0.5 % Lymphocyte pct 22.0 % Monocyte pct 7.8 % Eosinophil pct 1.6 % Basophil pct 0.4 % eGFR Collection Time: 03/22/22 6:05 PM Result Value Ref Range eGFR >90 90 - 130 mL/min/1.73 m2 Drugs of Abuse Screen, Urine without Confirmation Collection Time: 03/22/22 6:22 PM Result Value Ref Range Amphetamine, ur Not Detected CutOff 500ng/mL Barbiturates, ur Not Detected CutOff 200ng/mL Benzodiazepines, ur Not Detected CutOff 100ng/mL Cannabinoids, ur Not Detected CutOff 50 ng/mL Cocaine, ur Not Detected CutOff 150ng/mL Fentanyl, Ur Not Detected Cutoff 1 ng/mL Methadone, ur Not Detected CutOff 300ng/mL Opiates, ur Not Detected CutOff 300ng/mL Oxycodone, ur Not Detected CutOff 100ng/mL Phencyclidine, ur Not Detected CutOff 25 ng/mL Urine Creatinine 35 mg/dL Urinalysis reflex to microscopic and culture Urine Collection Time: 03/22/22 6:22 PM Specimen: Urine Result Value Ref Range Color, ur Straw Yellow Clarity, ur Cloudy (A) Clear Specific gravity, ur 1.009 1.003 - 1.030 pH, urine 7.5 Protein, ur ql Negative Negative Glucose, ur ql Negative Negative Ketones, ur Negative Negative Bilirubin, ur Negative Negative Blood, ur Negative Negative Urobilinogen, ur <2.0 <2.0 mg/dL Nitrite, ur Negative Negative Leukocyte esterase, ur Negative Negative UA reflex comment Reflex conditions for microscopic UA and culture not met. COVID-19 Coronavirus RNA Nasopharyngeal Collection Time: 03/22/22 6:22 PM Specimen: Nasopharyngeal Result Value Ref Range COVID-19 RNA Negative Negative POCT hCG, urine Collection Time: 03/22/22 7:58 PM Result Value Ref Range HCG, ur, POC Negative Lot Number [id number] QC Backgroud Clear Acceptable QC Control Line Acceptable I have reviewed the laboratory results. Imaging Results: MRI Lower Extremity Joint WO Contrast SHAHID CHARLTON MD, PHD LOUISA EMMANUEL M.D. FINAL REPORT The radiology attending physician has personally reviewed this study, and has reviewed and/or edited this written report and agrees with it. ACC# Date Time Exam [id number] Apr 07, 2017 15:58:00 [id number] MR Knee without cont L EXAMINATION: MRI [...] menisci and ligaments. Electronically signed by: Shahid Charlton MD, PHD Requested By: ORLIN EVANS M.D. Dictated By: LOUISA EMMANUEL M.D. on Apr 07 2017 4:30P This document has been electronically signed by: SHAHID CHARLTON MD, PHD on Apr 07 2017 4:45P [id number] CHARLTON MD, PHD LOUISA EMMANUEL M.D. FINAL REPORT The radiology attending physician has personally reviewed this study, and has reviewed and/or edited this written report and agrees with it. Attending: ORLIN EVANS Requesting: ORLIN EVANS Requesting Fax: Attending Fax: Attending ID: [id number] Requesting ID: [id number] Report To 1 ID: [id number] Report To 1 Name: , Report To 1 FAX: [email or web address] Order #: I have independently reviewed and interpreted . [place] level 1.3 WBC 13.1, Hb 12.7, Plts 364 Na 139, K 3.8, Cr 0.69 Normal LFTs TSH Urine HCG neg Covid-19 RNA neg 03/22 Ethanol<10, UDS neg UA cloudy, but neg TSH 1.84 (WNL) HOUSE AND RECEIVING SUPERVISOR HOUSE AND RECEIVING SUPERVISOR HOUSE AND RECEIVING SUPERVISOR * Initial Assessments - Jamila OchoaLORRAINE - 03/23/2022 9:03 AM CST Psychiatry Social Work Assessment Clinical Dx: Bipolar affective disorder, remission status unspecified Past Psychiatric History: Past Psychiatric History Previous Self Harm/Suicidal Attempts: No Patient currently seeing an outpatient psychiatrist? : Yes Psychiatrist Name/Number: @ the [facility] Current outpatient case finisher? 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 (Comment) (Pt reports she is working at [employer]) Admission Type: Involuntary Race: Ethnicity: Gender Identity: Female Guardian Type: Self Service : None Source of Information: Patient, Current Chart Chief Complaint: I am on the down side on my bipolar disorder (03/23/22903) Current Situation: Current Situation Housing/Living Enviornment : [...] time: Color, phone Opportunity to Socialize: Yes (03/23/22903) Reason for Current Hospitalization: Precipitating Event: Per ED Patient is a 21-year-old female with history of bipolar disorder recent admission discharge 02/27 on lithium and Aristada presents with SI today without plan. States these feelings have been more less constant waxing and waning since discharge 02/27 and worsening symptoms brought her to emergency department. Denies alcohol or recreational substance use. Does use a nicotine vape. No other acute medical complaints. LMP 03/03. Legal History: Legal History Legal Information : Legal history (03/23/22903) Support Systems and Spirituality: Support Systems and Spirituality Support System: Family members, Friends/neighbors, Parent Patient/Significant other participation : Pt had full participation during assessment Support Contact Name/Number: Colten Mock [phone] (Father) Family Perspective: Unknown Past Support System : Family Parents : Lives with father Children : 0 Siblings: 1 brother Do you have a Episcopalian Preference or Affiliation?: No Are there any Episcopalian Practices that are important to maintain while admitted?: No Referral to [employer] : No Hope and Strength during Difficult Times: God Do you have Cultural Factors that are important to you?: No Family History of Mental Illness: Yes Sexual Orientation : Heterosexual Born and Raised: [place], [place] Description of Childhood: Pt reports stable History of physical abuse? : No History of physically abusing others? : No History of sexual abuse?: No History of sexually abusing others? : No History of Mental/Emotional Abuse? : No (03/23/22903) Strengths, Assets, Liabilities and Stressors: Strengths, Assets, Liabilities, and Stressors Strengths (Must Choose Two): Steady employment, Access to housing/residential stability, Financial stability, Interpersonal relationships and supports,i.e., family, friends, peers, Knowledge of medications Patient Assets: Income, Insured, Home, Supportive family, Supportive friends, Psychiatrist Does Pt have access to Employee Assistance Program: No Patient Barriers : Denial/Lack of insight, Negative coping skills Current Stressors: Coping skills (03/23/22903) Social Determinants of Health Tobacco Use: Not [...] More than three times a week Attends Episcopalian Services: Never Active Member of Clubs or [...] of Substance Abuse: Yes Chemical Dependency Insight: Good Insight Risk to Self and Others: Risk [...] No Previous Plans to Harm Another: Denies (03/23/22903) Affect and Mood: Affect/Mood Affect: Pleasant Mood: Depressed (03/23/22903) Hopelessness, Helpfulness, Worthlessness: Hopelessness Helplessness Worthlessness Feelings of Hopelessness: Yes Feelings of Helplessness: Yes Feelings of Worthlessness: Yes (03/23/22903) Thought Content: Thought Content Delusions: None Hallucinations: None Ambivalence: Yes (03/23/22903) Behavior: Behavior Eye Contact: Good Exhibited Behaviors/Symptoms : Depressed, Compliant with treatment/expectations, Friendly (03/23/22903) Past Psych Hx: Past Psychiatric History Previous Self Harm/Suicidal Attempts: No Patient currently seeing an outpatient psychiatrist? : Yes Psychiatrist Name/Number: @ the [facility] Current outpatient case finisher? : No Mental Health Onset: 1 year ago Previous Psychiatric Admission: Yes (Comment) (03/23/22903) Problem/Goals: Problems/Goals Problems Identified by Social Work: Mental Health Short term goals: Stabilize and Discharge Patient Stated Goals: Adjust medications Intermediate Goals: Medication Compliance Social Work Plan/Intervention: Stabilize, Resources, follow up, transportation, housing, medicationassistance, socialization, and discharge (03/23/22903) Discharge Planning: Discharge Planning Support System: Family [...] Follow Up: Pt has follow up scheduled (03/23/22903) Social Determinants of Health Tobacco Use: Not [...] More than three times a week Attends Episcopalian Services: Never Active Member of Clubs or [...] Last Year: No Collaboration: Patient, Current Chart Impressions: Stephanie Coates, is a 21 y.o., single, unknown employment status, Domiciled female with a history of recently diagnosed Bipolar I Disorder who was brought to the hospital for SI. During assessment ptreports she has been feeling very depressed. Denying SI/HI/AH/VH. Pt reports she would like to see doctor and discuss a medication adjustment. Recommendations: SW recommends Pt be monitored for safety and encouraged to participate in Tx groups. SW will coordinate outpatient services and work with Pt, Pt support, and Tx team to discharge Pt to appropriate level of care. Jamila Ochoa LMSW HOUSE AND RECEIVING SUPERVISOR * Plan of Care - Ariana Patel RN - 03/23/2022 12:45 AM CST Goals: Clinical Goals for the Shift: get some good sleep Problem: Health Behavior: Goal: Understanding of discharge needs will improve Outcome: Progressing Problem: Lack of Knowledge: Goal: Ability to make informed decisions regarding treatment will improve Outcome: Progressing Problem: Coping: Goal: Ability to cope will improve Outcome: Progressing Problem: Health Behavior: Goal: Identification of resources available to assist in meeting health care needs will improve Outcome: Progressing Goal: Decreased thoughts of self harm Outcome: Progressing Problem: Medication: Goal: Compliance with prescribed medication regimen will improve Outcome: Progressing Problem: Safety: Goal: Ability to remain free from injury will improve Outcome: Progressing Goal: Verbalizations of safety and security will increase Outcome: Progressing Problem: Self-Concept: Goal: Ability to disclose and discuss suicidal ideas will improve Outcome: Progressing Goal: Ability to verbalize positive feelings about self will improve Outcome: Progressing HOUSE AND RECEIVING SUPERVISOR documented in this encounter Plan of Treatment Not on file documented as of this encounter Procedures Procedure Name Priority Date/Time Associated Diagnosis Comments POCT HCG, URINE Routine 03/22/2022 7:58 PM WAREHOUSE AND RECEIVING SUPERVISOR COVID-19 CORONAVIRUS RNA Routine 03/22/2022 6:22 PM WAREHOUSE AND RECEIVING SUPERVISOR URINALYSIS AND REFLEX TO MICROSCOPIC AND CULTURE STAT 03/22/2022 6:22 PM WAREHOUSE AND RECEIVING SUPERVISOR DRUGS OF ABUSE SCREEN, URINE WITHOUT CONFIRMATION STAT 03/22/2022 6:22 PM WAREHOUSE AND RECEIVING SUPERVISOR EGFR STAT 03/22/2022 6:05 PM WAREHOUSE AND RECEIVING SUPERVISOR DIFFERENTIAL AUTO STAT 03/22/2022 6:0 5 PM WAREHOUSE AND RECEIVING SUPERVISOR THYROID FUNCTION CASCADE Routine 03/22/2022 6:05 PM WAREHOUSE AND RECEIVING SUPERVISOR CBC WITH AUTO DIFFERENTIAL STAT 03/22/2022 6:05 PM WAREHOUSE AND RECEIVING SUPERVISOR ETHANOL STAT 03/22/2022 6:05 PM WAREHOUSE AND RECEIVING SUPERVISOR LITHIUM LEVEL STAT 03/22/2022 6:05 PM WAREHOUSE AND RECEIVING SUPERVISOR COMPREHENSIVE METABOLIC PANEL STAT 03/22/2022 6:05 PM WAREHOUSE AND RECEIVING SUPERVISOR AR CRITICAL CARE ILL/INJURED PATIENT INIT 30-74 MIN Routine 03/22/2022 5:57 PM WAREHOUSE AND RECEIVING SUPERVISOR documented in this encounter Results * POCT hCG, urine (03/22/2022 7:58 PM WAREHOUSE AND RECEIVING SUPERVISOR) HCG, ur, POC Negative Lot Number [id number] QC Backgroud Clear Acceptable QC Control Line Acceptable Urine 03/22/2022 7:58 PM WAREHOUSE AND RECEIVING SUPERVISOR Silvestre Sanchez MD POINT OF CARE TEST ORDERABLES Fi nal Result * COVID-19 Coronavirus RNA Nasopharyngeal (03/22/2022 6:22 PM WAREHOUSE AND RECEIVING SUPERVISOR) COVID-19 RNA Negative Negative [facility] Nasopharyngeal 03/22/2022 6: 22 PM WAREHOUSE AND RECEIVING SUPERVISOR 03/22/2022 6:31 PM WAREHOUSE AND RECEIVING SUPERVISOR Narrative [facility] - 03/22/2022 7:22 PM WAREHOUSE AND RECEIVING SUPERVISOR Is the patient experiencing any symptoms consistent with COVID (eg. Fever, cough, shortness of breath)?->No What is the reason for testing?->Screening prior to admission to [facility] health unit??(Rapid) ??Interpretive data: Synonyms for this test include: PCR and NAAT . ??This test is performed using the [employer] Xpert Xpress plus assay. This is a real-time RT-PCR test intended for the qualitative detection of nucleic acid from the SARS-CoV-2. This assay has been reviewed by the FDA for Emergency Use Authorization (EUA). The performance characteristics have been verified by the performing laboratory. Results must be considered in the clinical context and a negative result does not rule out infection. Interpretive data last revised August 26, 2021. ??Interpretive data: Synonyms for this test include: PCR and NAAT . ??This test is performed using the [employer] Xpert Xpress plus assay. This is a real-time RT-PCR test intended for the qualitative detection of nucleic acid from the SARS-CoV-2. This assay has been reviewed by the FDA for Emergency Use Authorization (EUA). The performance characteristics have been verified by the performing laboratory. Results must be considered in the clinical context and a negative result does not rule out infection. Interpretive data last revised August 26, 2021. Silvestre Sanchez MD LAB MICROBIOLOGY - GENERAL ORDER LINH Final Result [facility] Department [place] [address] * (ABNORMAL) Urinalysis reflex to microscopic and culture Urine (03/22/2022 6:22 PM WAREHOUSE AND RECEIVING SUPERVISOR) Color, ur Straw Yellow [facility] Clarity, ur Cloudy(A) Clear [facility] Specific gravity, ur 1.009 1.003 - 1.030 [facility] pH, urine 7.5 [facility] Protein, ur ql Negative Negative [facility] Glucose, ur ql Negative Negative [facility] Ketones, ur Negative Negative [facility] Bilirubin, ur Negative Negative [facility] Blood, ur Negative Negative [facility] Urobilinogen, ur <2.0 <2.0 mg/dL [facility] Nitrite, ur Negative Negative [facility] Leukocyte esterase, ur Negative Negative [facility] UA reflex comment Reflex conditions for microscopic UA and culture not met. [facility] Urine 03/22/2022 6:22 PM WAREHOUSE AND RECEIVING SUPERVISOR 03/22/2022 6:29 PM WAREHOUSE AND RECEIVING SUPERVISOR Narrative [facility] - 03/22/2022 6:52 PM WAREHOUSE AND RECEIVING SUPERVISOR ?? Urine pH is affected by diet, medications, systemic acid-base disturbances, and renal tubular function. ??pH may affect urinary stone formation. ??For example, urine pH below 6.0 may help reduce the tendency for calcium phosphate stones and pH greater than 6.0 may reduce the tendency for uric acid stone formation. Source: [facility] [employer]. Last revised 04-07-2017 us Silvestre Sanchez MD LAB MICROBIOLOGY - GENERAL ORDER LINH Final Result [facility] Department [place] [address] * Drugs of Abuse Screen, Urine without Confirmation (03/22/2022 6:22 PM WAREHOUSE AND RECEIVING SUPERVISOR) [facility] Amphetamine, ur Not Detected CutOff 500ng/mL [facility] Comment: Interpretive Data - Amphetamines: ??Samples containing greater than 500 ng/mL d-methamphetamine ??or other cross-reacting amphetamine compounds are reported as positive. ??Amphetamine immunoassays are subject to significant false positive rates due to cross-reactivity of non-amphetamine drugs. Current Interpretive Data was last reviewed 2018. Barbiturates, ur Not Detected CutOff 200ng/mL [facility] Comment: Interpretive Data - Barbiturates: ??Samples containing greater than 200 ng/mL secobarbital or other cross-reacting barbiturate compounds are reported as positive. ??False positive and false negative results are possible. Current Interpretive Data was last reviewed 2018. Benzodiazepines, ur Not Detected CutOff 100ng/mL [facility] Comment: Interpretive Data - Benzodiazepines: ??Samples containing greater than 100 ng/mL nordiazepam or other cross-reacting compounds are reported as positive. ?? False positive and false negative results are possible. ?? Current Interpretive Data was last reviewed 2018. Cannabinoids, ur Not Detected CutOff 50 ng/mL [facility] Cocaine, ur Not Detected CutOff 150ng/mL [facility] Comment: Interpretive Data - Cocaine: ??Samples containing greater than 150 ng/mL benzoylecgonine or other cross-reacting compounds are reported as positive. False positive and false negative results are possible. Current Interpretive Data was last reviewed 2018. Fentanyl, Ur Not Detected Cutoff 1 ng/mL [facility] Comment: Interpretive Data - Fentanyls: ??Samples containing greater than 1 ng/mL fentanyl or other cross-reacting fentanyl compounds are reported as detected. ??False positive and false negative results are possible. Current Interpretive Data was last reviewed 2018. Methadone, ur Not Detected CutOff 300ng/mL [facility] Comment: Interpretive Data - Methadone: ??Samples containing greater than 300 ng/mL d,l-methadone or other cross-reacting compounds are reported as positive. ??False positive and false negative results are possible. Current Interpretive Data was last reviewed 2018. Opiates, ur Not Detected CutOff 300ng/mL [facility] Comment: Interpretive Data - Opiates: ??Samples containing greater than 300 ng/mL morphine or other cross-reacting compounds are reported as positive. ??False positive and false negative results are possible. Current Interpretive Data was last reviewed 2018. Oxycodone, ur Not Detected CutOff 100ng/mL [facility] Comment: Interpretive Data - Oxycodone: ??Samples containing greater than 100 ng/mL oxycodone or other cross-reacting compounds are reported as positive. ??False positive and false negative results are possible. ?? Current Interpretive Data was last reviewed 2018. Phencyclidine, ur Not Detected CutOff 25 ng/mL [facility] Comment: Interpretive Data - Phencyclidine: ??Samples containing greater than 25 ng/mL phencyclidine or other cross-reacting compounds are reported as positive. ??False positive and false negative results are possible. ?? Current Interpretive Data was last reviewed 2018. Urine Creatinine 35 mg/dL [facility] Comment: Interpretive Data Urine Creatinine: < 10 mg/dL is extremely dilute = or > 10 but < 20 mg/dL is dilute = or > 20 mg/dL is normal Current Interpretive Data was last revised on 2017. Urine 03/22/2022 6:22 PM WAREHOUSE AND RECEIVING SUPERVISOR 03/22/2022 6:30 PM WAREHOUSE AND RECEIVING SUPERVISOR Narrative [facility] - 03/22/2022 8:08 PM WAREHOUSE AND RECEIVING SUPERVISOR Drug of Abuse screening is performed by immunoassay for medical purposes only. ??This is not to be used for Pain Management purposes. us Silvestre Sanchez MD LAB URINE ORDERABLES Edited Resu lt - Final [facility] Department [place] [address] * eGFR (03/22/2022 6:05 PM WAREHOUSE AND RECEIVING SUPERVISOR) eGFR >90 90 - 130 mL/min/1. 73 m2 [facility] Comment: Interpretive Data Reference Interval Normal ?>/= [...] of Race in Diagnosing Kidney Disease, JASN 2020). The CKD-EPI equation should not be used for patients with unstable renal function and has not been validated in children and those over 70. Current interpretive data was last reviewed 2021. Blood 03/22/2022 6:0 5 PM WAREHOUSE AND RECEIVING SUPERVISOR 03/22/2022 6:47 PM WAREHOUSE AND RECEIVING SUPERVISOR us Silvestre Sanchez MD LAB BLOOD ORDERABLES Final Resul t [facility] Department [place] [address] * (ABNORMAL) Differential, auto (03/22/2022 6:05 PM WAREHOUSE AND RECEIVING SUPERVISOR) Neutrophil abs 8.9(H) 1.7 - 6.5 K/cumm [facility] Imm gran abs 0.1 0.0 - 0.1 K/cumm [facility] Lymphocyte abs 2.9 0.8 - 3.3 K/cumm [facility] Monocyte abs 1.0(H) 0.2 - 0.8 K/cumm [facility] Eosinophil abs 0.2 0.0 - 0.5 K/cumm [facility] Basophil abs 0.1 0.0 - 0.1 K/cumm [facility] Neutrophil pct 67.7 % [facility] Comment: Interpretive Data Percent cell count reference ranges are not reported, since discordance with absolute values may lead to misinterpretation of CBC data. Current Interpretive Data was last revised on 2017. Imm gran pct 0.5 % [facility] Comment: Interpretive Data Percent cell count reference ranges are not reported, since discordance with absolute values may lead to misinterpretation of CBC data. Current Interpretive Data was last revised on 2017. Lymphocyte pct 22.0 % [facility] Comment: Interpretive Data Percent cell count reference ranges are not reported, since discordance with absolute values may lead to misinterpretation of CBC data. Current Interpretive Data was last revised on 2017. Monocyte pct 7.8 % [facility] Comment: Interpretive Data Percent cell count reference ranges are not reported, since discordance with absolute values may lead to misinterpretation of CBC data. Current Interpretive Data was last revised on 2017. Eosinophil pct 1.6 % [facility] Comment: Interpretive Data Percent cell count reference ranges are not reported, since discordance with absolute values may lead to misinterpretation of CBC data. Current Interpretive Data was last revised on 2017. Basophil pct 0.4 % [facility] Comment: Interpretive Data Percent cell count reference ranges are not reported, since discordance with absolute values may lead to misinterpretation of CBC data. Current Interpretive Data was last revised on 2017. Blood 03/22/2022 6:05 PM WAREHOUSE AND RECEIVING SUPERVISOR 03/22/2022 6:47 PM WAREHOUSE AND RECEIVING SUPERVISOR Silvestre Sanchez MD LAB BLOOD ORDERABLES Final Resul t Performing Organization Address [facility] [address]/[facility] Co de Phone Number [facility] [place] [address] * TSH reflex to free T4 (03/22/2022 6:05 PM WAREHOUSE AND RECEIVING SUPERVISOR) TSH 1.84 0.30 - 4.20 mcIUnit/mL [facility] Blood 03/22/2022 6:05 PM WAREHOUSE AND RECEIVING SUPERVISOR 03/22/2022 6:47 PM WAREHOUSE AND RECEIVING SUPERVISOR Silvestre Sanchez MD LAB BLOOD ORDERABLES Final Resul t Performing Organization Address [facility] de Phone Number [facility] [place] [address] * Ethanol (03/22/2022 6:05 PM WAREHOUSE AND RECEIVING SUPERVISOR) Pathologist [facility] Ethanol <10 <=10 mg/dL [facility] Comment: Interpretive Data Legal limit of intoxication > or = 80 mg/dL Levels > or = 400 mg/dL are potentially TOXIC. Current interpretive data was last revised on 2018. Blood (Blood, Venous) 03/22/2022 6:05 PM WAREHOUSE AND RECEIVING SUPERVISOR 03/22/2022 6:47 PM WAREHOUSE AND RECEIVING SUPERVISOR Silvestre Sanchez MD LAB BLOOD ORDERABLES Final Resul t Performing Organization Address [facility] [address]/[facility] [place] [address] * (ABNORMAL) Comprehensive metabolic panel (03/22/2022 6:05 PM WAREHOUSE AND RECEIVING SUPERVISOR) Sodium 139 135 - 145 mmol/L [facility] Potassium, pl 3.8 3.3 - 4.9 mmol/L [facility] Chloride 104 97 - 110 mmol/L [facility] CO2 25 22 - 32 mmol/L [facility] Anion gap 10 2 - 15 mmol/L [facility] BUN 7(L) 8 - 25 mg/dL [facility] Creatinine 0.69 0.60 - 1.10 mg/dL [facility] Glucose 84 70 - 199 mg/dL [facility] Comment: Interpretive Data Fasting glucose >/= 126 [...] interpretive data was last revised 2017. Calcium 9.7 8.5 - 10.3 mg/dL [facility] Bilirubin, total 0.3 0.1 - 1.2 mg/dL [facility] Protein, pl 7.2 6.5 - 8.5 g/dL [facility] Albumin 4.6 3.5 - 5.0 g/dL [facility] Alk phos 86 40 - 130 Units/L [facility] ALT 13 7 - 45 Units/L [facility] AST 16 10 - 45 Units/L [facility] Blood 03/22/2022 6:05 PM WAREHOUSE AND RECEIVING SUPERVISOR 03/22/2022 6:47 PM WAREHOUSE AND RECEIVING SUPERVISOR us Silvestre Sanchez MD LAB BLOOD ORDERABLES Final Resul t [facility] [place] [address] * (ABNORMAL) CBC with auto differential (03/22/2022 6:05 PM WAREHOUSE AND RECEIVING SUPERVISOR) [facility] WBC 13.1(H) 3.8 - 9.9 K/cumm [facility] Hgb 12.7 11.9 - 15.5 g/dL [facility] Hct 37.7 35.6 - 45.5 % [facility] Plt 364 150 - 400 K/cumm [facility] MPV 8.9(L) 9.1 - 12.3 fL [facility] RBC 4.02 3.90 - 5.20 M/cumm [facility] MCV 93.8 81.3 - 96.4 fL [facility] MCH 31.6 27.1 - 33.3 pg [facility] MCHC 33.7 32.3 - 35.7 g/dL [facility] RDW CV 11.9 11.1 - 14.9 % [facility] RDW SD 41.3 35.7 - 48.1 fL [facility] NRBC abs 0.00 0.00 - 0.01 K/cumm [facility] Blood 03/22/2022 6:05 PM WAREHOUSE AND RECEIVING SUPERVISOR 03/22/2022 6:47 PM WAREHOUSE AND RECEIVING SUPERVISOR us Silvestre Sanchez MD LAB BLOOD ORDERABLES Final Resul t Performing Organization Address City/[facility] [address]/ZIP Co de Phone Number [facility] Department [place] [address] * (ABNORMAL) [place] level (03/22/2022 6:05 PM WAREHOUSE AND RECEIVING SUPERVISOR) [place] 1.3(H) 0.6 - 1.2 mmol/L [facility] Blood 03/22/2022 6:05 PM WAREHOUSE AND RECEIVING SUPERVISOR 03/22/2022 6:47 PM WAREHOUSE AND RECEIVING SUPERVISOR us Silvestre Sanchez MD LAB BLOOD ORDERABLES Final Resul t [facility] [place] [address] * AR CRITICAL CARE ILL/INJURED PATIENT INIT 30-74 MIN (03/22/2022 5:57 PM WAREHOUSE AND RECEIVING SUPERVISOR) Narrative Silvestre Sanchez MD - 03/22/2022 5:57 PM WAREHOUSE AND RECEIVING SUPERVISOR Silvestre Sanchez MD ? 03/22/2022 ??9:30 PM Critical Care Performed by: Silvestre Sanchez MD Authorized by: Silvestre Sanchez MD Critical care provider statement: As reflected in the history, physical exam, orders, notes, and/or MDM, I was personally present while the patient was critically ill and provided critical care services for 30 minutes, excluding time involved in separately billable procedures. ??Critical care was necessary to treat or prevent imminent or life-threatening deterioration of the following condition(s): ?? suicidal/homicidal ideation ??Critical care was time spent by me providing the following: ? psychological evaluation with medical clearance ?? I provided emergent necessary critical care medicine services to this patient. I ordered and reviewed test results and/or imaging studies. I spent time discussing the management of this critically ill patient with consultants and the medical staff. I spent time discussing the management and therapeutic options for this critically ill patient with the patient themselves or with the appropriate designated surrogate decision-maker. I spent time documenting in the medical record. Silvestre Sanchez MD IN CLINIC/BEDSIDE ORDERABLES Fin al Result documented in this encounter Visit Diagnoses Diagnosis Bipolar disorder, current episode depressed, mild or moderate severity, unspecified (HCC)- Primary Suicidal ideation Suicidal ideation Cannabis dependence (HCC) Routine general medical examination at a health care facility documented in this encounter Admitting Diagnoses Diagnosis Suicidal ideation documented in this encounter Administered Medications Inactive Administered Medications - up to 3 most recent administrations Medication Order MAR Action Action Date Dose Rate Site hydrOXYzine (ATARAX) tablet 10 mg 10 mg, oral, Every 4 hours PRN, anxiety, Starting on Tu03/23/22 at 0930 hydrOXYzine (ATARAX) tablet 50 mg 50 mg, oral, 2 times daily PRN, anxiety, Starting on Tue03/22/22 at 2247 Given 03/22/2022 11:06 PM WAREHOUSE AND RECEIVING SUPERVISOR 50 mg lithium ER (ESKALITH) extended release tablet 450 mg 450 mg, oral, 2 times daily with meals (bkfst, dinner), First dose (after last modification) on Tue03/24/22 at 0800 Given 03/24/2022 8:34 AM WAREHOUSE AND RECEIVING SUPERVISOR 450 mg lithium ER (LITHOBID) extended release tablet 1,200 mg 1,200 mg, oral, Daily, First dose on Tue03/23/22 at 0900 Given 03/23/2022 8:38 AM WAREHOUSE AND RECEIVING SUPERVISOR 1,200 mg nicotine polacrilex (NICORETTE) gum 2 mg 2 mg, mouth/throat, Every 2 hours PRN, nicotine withdrawal symptoms, Starting on Tue03/22/22 at 2247, Instruct patients to chew into gum and then place between the cheek and gum to enhance absorption. Given 03/23/2022 9:01 PM WAREHOUSE AND RECEIVING SUPERVISOR 2 mg risperiDONE (RisperDAL) tablet 2 mg 2 mg, oral, 2 times daily, First dose (after last modification) on Tue03/23/22 at 1000 Given 03/24/2022 8:34 AM WAREHOUSE AND RECEIVING SUPERVISOR 2 mg Given 03/23/2022 9:01 PM WAREHOUSE AND RECEIVING SUPERVISOR 2 mg traZODone (DESYREL) tablet 100 mg 100 mg, oral, Nightly PRN, sleep, Starting on Tue03/23/22 at 0927 traZODone (DESYREL) tablet 50 mg 50 mg, oral, Nightly PRN, sleep, Starting on Tue03/22/22 at 2248 Given 03/22/2022 11:06 PM WAREHOUSE AND RECEIVING SUPERVISOR 50 mg documented in this encounter Discontinued Medications Medication Sig Discontinue Reason Start Date End Da te lithium ER (ESKALITH) 450 mg CR tabletIndications:Bipolar Disorder in Remission Take 2 tablets (900 mg total) by mouth daily Stop Taking at Discharge 02/26/2022 03/24/2022 risperiDONE (RisperDAL M-TABS) 2 mg disintegrating tabletIndications:Bipolar Disorder in Remission Take 2 tablets (4 mg total) by mouth nightly Stop Taking at Discharge 02/26/2022 03/24/2022 traZODone (DESYREL) 50 mg tablet Take 1 tablet (50 mg total) by mouth nightly Stop Taking at Discharge 03/05/2022 03/24/2022 hydrOXYzine (ATARAX) 25 mg tabletIndications:anxiety Take 2 tablets (50 mg total) by mouth 2 (two) times a day as needed for anxiety Stop Taking at Discharge 03/05/2022 03/24/2022 lithium ER (LITHOBID) 300 mg CR tablet Take 1 tablet (300 mg total) by mouth daily Stop Taking at Discharge 03/09/2022 03/24/2022 documented as of this encounter Active and Recently Administered Medications Times are shown in WAREHOUSE AND RECEIVING SUPERVISOR. Scheduled Medication Order 03/22/2022 03/23/2022 03/24/2022 lithium ER (ESKALITH) extended release tablet 450 mg 450 mg, oral, 2 times daily with meals (bkfst, dinner), First dose (after last modification) on Tue03/24/22 at 0800 0834 (Given - Provid er: Emerald Alvarado RN) lithium ER (LITHOBID) extended release tablet 1,200 mg (CANCELED) 1,200 mg, oral, Daily, First dose on Tue03/23/22 at 0900 0838 (Given - Provider: Krystina French, SAGAR) risperiDONE (RisperDAL) tablet 2 mg 2 mg, oral, 2 times daily, First dose (after last modification) on Tue03/23/22 at 1000 1032 (Not Given - Provider: Krystina French RN - Reason: Patient/family refused - Comment: MEdication gives me the jitters.)2100 (Given - Provider: Ariana Patel RN) 0834 (Given - Provider: Emerald Alvarado RN) PRN Medication Order 03/22/2022 03/23/2022 03/24/2022 hydrOXYzine (ATARAX) tablet 10 mg 10 mg, oral, Every 4 hours PRN, anxiety, Starting on Tue03/23/22 at 0930 hydrOXYzine (ATARAX) tablet 50 mg (CANCELED) 50 mg, oral, 2 times daily PRN, anxiety, Starting on Tue03/22/22 at 2247 2306 (Given - Provider: Ariana Patel, SAGAR) nicotine polacrilex (NICORETTE) gum 2 mg 2 mg, mouth/throat, Every 2 hours PRN, nicotine withdrawal symptoms, Starting on Tue03/22/22 at 2247, Instruct patients to chew into gum and then place between the cheek and gum to enhance absorption. 2100 (Given - Provider: Ariana Patel, SAGAR) traZODone (DESYREL) tablet 100 mg 100 mg, oral, Nightly PRN, sleep, Starting on Tue03/23/22 at 0927 traZODone (DESYREL) tablet 50 mg (CANCELED) 50 mg, oral, Nightly PRN, sleep, Starting on 03/22/22 at 2248 2306 (Given - Provider: Ariana Patel RN) documented in this encounter Orders Medications Ordered That Jose ht Not Have Been Administered Count Last Ordered Date First Ordered Date hydrOXYzine (ATARAX) tablet 10 mg 1 022 traZODone (DESYREL) tablet 100 mg 1 022 risperiDONE (RisperDAL) tablet 1 mg 1 03/22 Nursing Count Last Ordered Date First Orde red Date MEASURE HEIGHT AND LENGTH 1 03/22/2022 WEIGH PATIENT 1 03/22/2022 Admission Count Last Ordered Date First Orde red Date ADMIT TO INPATIENT 1 03/22/2022 Discharge Count Last Ordered Date First Orde red Date DISCHARGE PATIENT 1 03/23/2022 CORE MEASURES Count Last Ordered Date First Ord ered Date REASON FOR NO VTE PROPHYLAXIS AT ADMISSION 1 03/22/2022 documented in this encounter Care Teams Mule Developer Relationship Specialty Start Date End Date Marlin Contreras MD PCP - General 04/07/17 10/09/23 Bettie Cabezas MD [address] [place] [address] Resident Psychiatry 03/23/22 09/23/23 documented as of this encounter
--- OUTSIDE RECORDS SUMMARY | 2024-03-25 18:42 | XMS_ITS | Encounter Summary ---
Author Organization [facility] Healthcare Address [address] [place] [address] Care Team Providers Care Habitat Biologist Name Role Phone Marlin Contreras MD Primary Care Provider [phone] Bettie Cabezas MD Unavailable [phone] Encounter Details Date Type Department Care Team (Late st Contact Info) Description 03/24/2022 Orders Only [facility]- [facility]iatry [facility] [address] [facility] [address] [facility] [address] [place] [address] Bettie Cabezas MD [address] [place], [place] [id number] Bipolar affective disorder, current episode manic with psychotic symptoms (CMS/HCC) (HCC) (Primary Dx) Social History Tobacco Use [...] often do you attend chur ch or yazdanism services? Never 02/23/2022 Do you belong to [...] 02/23/2022 [facility] - [...] a senior living (including now)? No 02/23/2022 Comments Unknown Sex and Gender Information Value Date Recorded Sex Assigned at Not on file Legal Sex Female 12:29 PM GLASS EMBOSSER Gender Identity Not on file Sexual Orientation Not on file documented as of this encounter Progress Notes * Bettie Traore MD - 03/24/2022 12:10 PM CST Ordered repeat Li level for patient before she is seen in clinic next week, recent admission Li waslowered back to 900mg daily. S EMBOSSER documented in this encounter Plan of Treatment Not on file documented as of this encounter Procedures Procedure Name Priority Date/Time Associated Diagnosis Comments LITHIUM LEVEL Routine 03/30/2022 8:05 AM GLASS EMBOSSER Bipolar affective disorder, current episode manic with psychotic symptoms (CMS/HCC) (HCC) documented in this encounter Results * (ABNORMAL) [place] level (03/30/2022 8:05 AM GLASS EMBOSSER) LITHIUM 0.3(L) 0.6 - 1.2 mmol/L [place] [facility] Blood 03/30/2022 8:05 AM GLASS EMBOSSER 03/30/2022 8:06 AM GLASS EMBOSSER Bettie Cabezas MD LAB BLOOD ORDERABLES Margie l Result [facility] [address] [place] [address] documented in this encounter Visit Diagnoses Diagnosis Bipolar affective disorder, current episode manic with psychotic symptoms (CMS/HCC) (HCC)- Primary documented in this encounter Care Teams Habitat Biologist Relationship Specialty Start Date End Date Marlin Contreras MD PCP - General 04/07/17 10/09/23 Bettie Cabezas MD [facility] [address] [place] [address] Resident Psychiatry 03/23/22 09/23/23 documented as of this encounter
--- OUTSIDE RECORDS SUMMARY | 2024-03-25 18:42 | XMS_ITS | Encounter Summary ---
Author Organization [facility] Healthcare Address [address] [place] [address] Care Team Providers Care Finishing Machine Operator Automatic Name Role Phone Marlin Contreras MD Primary Care Provider [phone] Bettie Cabezas MD Unavailable [phone] Reason for Visit * Reason Comments Follow-up MD Visit and Injecti on Encounter Details Date Type Department Care Team (Latest Contact Info) Description 04/02/2022 3:45 PM STATE PILOT Clinical Support [facility]- Psychiatry Clinic [address] [facility] [address] [place] [address] Bipolar disorder, current episode depressed, mild or [...] often do you attend chur ch or church services? Never 02/23/2022 Do you belong to [...] staff should administer the PHQ-9) 1 02/23/2022 [facility] Occupat ional [facility] - Occupational Stress [...] in a correction (including now)? No 02/23/2022 Comments Unknown Sex and Gender Information Value Date Recorded Sex Assigned at Not on file Legal Sex Female 12:29 PM STATE PILOT Gender Identity Not on file Sexual Orientation Not on file documented as of this encounter Last Filed Vital Signs Vital Sign Reading Time Taken Comments Blood Pressure 101/60 04/02/2022 4:15 PM STATE PILOT Pulse 109 04/02/2022 4:15 PM STATE PILOT Temperature 36.9 ??C (98.4 ??F) 04/02/2022 4:15 PM CS T Respiratory Rate - - Oxygen Saturation 100% 04/02/2022 4:15 PM STATE PILOT Inhaled Oxygen Concentration - - Weight 61.6 kg (135 lb 12.8 oz) 04/02/2022 4:15 PM STATE PILOT Height - - Body Mass Index 23.31 03/22/2022 9:45 PM STATE PILOT documented in this encounter Progress Notes * Sweta Alas RN - 04/02/2022 3:45 PM CST Aristada 882mg IM given Rt Gluteal. Pt tolerated well. E PILOT documented in this encounter Plan of Treatment Not on file documented as of this encounter Visit Diagnoses Diagnosis Bipolar disorder, current episode depressed, mild or moderate severity, unspecified (HCC) documented in this encounter Administered [...] Indications: SchizophreniaIndications:Sc hizophrenia Given 04/02/2022 4:07 PM STATE PILOT 882 mg Right Dorsogluteal/Butt ock Given 03/05/2022 1:12 PM STATE PILOT 882 mg Le ft Dorsogluteal/Buttock documented in this encounter Care Teams Finishing Machine Operator Automatic Relationship Specialty Start Date End Date Marlin Contreras MD PCP - General 04/07/17 10/09/23 Bettie Cabezas MD [address] [place] [address] Resident Psychiatry 03/23/22 09/23/23 documented as of this encounter
--- OUTSIDE RECORDS SUMMARY | 2024-03-25 18:42 | XMS_ITS | Encounter Summary ---
Author Organization [facility] Healthcare Address [address] [place] [address] Care Team Providers Care E Marketing Specialist Name Role Phone Marlin Contreras MD Primary Care Provider [phone] Reason for Visit * Reason Onset Date Comments Appointment Reminder Call 03/04/2022 Encounter Details Date Type Department Care Team (Late st Contact Info) Description 03/04/2022 Telephone [facility]- Psychiatry Clinic [address] [facility] [address] [place] [id number] No, Provider Appointment Reminder Call Social History Tobacco Use [...] often do you attend chur ch or uatsdin services? Never 02/23/2022 Do you [...] should administer the PHQ-9) 1 02/23/2022 [facility] Occupat ional Health - Occupational Stress [...] file Legal Sex Female 12:29 PM SUPERVISOR CARPENTERS Gender Identity Not on file Sexual Orientation Not on file documented as of this encounter Miscellaneous Notes * Telephone Encounter - Lisa Dubose - 03/04/2022 10:22 AM CST Reminder call. Wrong number. Pat RVISOR CARPENTERS documented in this encounter Plan of Treatment Not on file documented as of this encounter Visit Diagnoses Not on filedocumented in this encounter Additional Health Concerns Infection Onset Date Last Indicated Resolved Time Exposure, COVID-19 Comment:Patient exposed to known positive 02/23/22. Must remain on precautions x 10 days. Negative testing does not negate need for precautions. Monitor for s/s. 02/24/22. Zen Couch. 02/23/2022 02/24/2022 03/05/2022 3:05 AM SUPERVISOR [employer]PENT[employer] documented as of this encounter Care Teams E Marketing Specialist Relationship Specialty Start Date End Date Marlin Contreras MD PCP - General 04/07/17 10/09/23 documented as of this encounter
--- OUTSIDE RECORDS SUMMARY | 2024-03-25 18:42 | XMS_ITS | Encounter Summary ---
Author Organization [facility] Healthcare Address [address] [place] [address] Care Team Providers Care Snow Technician Name Role Phone Marlin Contreras MD Primary Care Provider [phone] Bettie Cabezas MD Unavailable [phone] Reason for Visit * Reason Comments Suicidal Ideation * Auth/Cert (Routine) Specialty Diagnoses / Procedures Referred By Contac t Referred To Contact Diagnoses Suicidal ideation Depression, unspecified depression type Procedures NA Referral ID Status Reason Start Date Expiration Date Visits Re quested Visits Authorized [id number] 1 1 Encounter Details Date Type Department Care Team (Latest Contact Info) Description 08/23/2022 2:44 PM CDT - 08/26/2022 4:42 PM CDT Hospital Encounter [facility] [address] [place] [id number] Jimmy Ruiz MD [address] [place] [address] Naomi Cabral MD [address] [place] [address] [place] [id number] [place] [address] Eliot Rubio MD [address] [place] [address] Simi Rodriguez MD [address] [place] [address] Depression, unspecified depression type (Primary Dx); Suicidal ideation Discharge Disposition: Discharge to home or self [...] often do you attend chur ch or scientology services? 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 Gender Identity Not on file Sexual Orientation Not on file documented as of this encounter Last Filed Vital Signs Vital Sign Reading Time Taken Comments Blood Pressure 103/66 08/26/2022 7:45 AM CDT Pulse 75 08/26/2022 7:45 AM CDT Temperature 36.8 ??C (98.2 ??F) 08/25/2022 8:09 PM CD T Respiratory Rate 20 08/26/2022 7:45 AM CDT Oxygen Saturation 99% 08/25/2022 8:09 PM CDT Inhaled Oxygen Concentration - - Weight 68 kg (150 lb) 08/24/2022 1:05 PM CDT Height 162.6 cm (5' 4 ) 08/24/2022 1:05 PM CDT Body Mass Index 25.75 08/24/2022 1:05 PM CDT documented in this encounter Discharge Summaries * Simi Rodriguez MD - 08/26/2022 4:53 PM CDT Inpatient Discharge Summary BRIEF OVERVIEW Admitting Provider: Salvatore Billings MD Discharge Provider: Simi Rodriguez MD Primary Care Physician at Discharge: Marlin Contreras MD [phone] Dr. Bettie Traore at the [facility] Admission Date: 08/23/2022 Discharge Date: 08/26/2022 Admission Location: [facility] Hospital Problems/Diagnoses: Principal Problem: Bipolar disorder, current episode depressed, mild or moderate severity, unspecified (HCC) Resolved Problems: Depression, unspecified depression type DETAILS OF HOSPITAL STAY Presenting Problem/History of Present Illness: This is the 4th psychiatric admission for this 22 y.o. year old, single, White ,unemployed female with a history of bipolar I diagnosed in Fall 2021 who was brought to the hospital by self for SI andsymptoms of depression. Admission Status: Voluntary GUARDIANSHIP: No POWER OF OFFICE RUNNER ([place] ONLY): SOURCE OF INFORMATION: Patient known to me from first admission. EHR and patient CHIEF COMPLAINT: Just having suicidal thoughts, that's all. Not feeling the best reports duration is couple weeks and denies any precipitating stressor. HISTORY OF PRESENT ILLNESS: 22yo known to me from early January 2022 admission when she had her first psychiatric admission inthe context of a manic episode with psychotic features. Since then eladio has stabilized and is now prescribed lithium 900mg qhs and latuda 80mg in the evening. She reports she takes the latuda with food but not clearly with a meal of at least 300 calories. She alternates staying with her mother and her father. She has been clean of any recreational substances and is sad and frustrated with difficulties stabilizing her mood (tearful during the interview). She reports she is attending both individual and group therapies at [facility] and sees psychiatric resident Bettie Traore at [facility] ~ q6 weeks. She reports she sleeps wellat night and appetite is intact, but low energy during the day, anhedonia, a single friend left, and little future planning. She reports she spent Memorial Day weekend with her mother and maternal grandmother and they (not her) grilled. She reports fearing future manic episodes and reports passive SI waxes and wanes. Utox is negative. No access to firearms, no current legal issues Hospital Course: Ms. Coates is a 22 year old female with a past medical history of Bipolar Disorder (diagnosed 2021) admitted as a voluntary patient to [facility] for suicidal ideation in the setting of increased depressive symptoms (low mood, feelings of guilt, difficulty concentrating, social isolation, poor self care, SI) for the past several weeks. Her outpatient regimen of [place] 900mg qhs and Latuda 80mg with evening meal was continued during the admission. She was started on Prozac 10mg daily for depressive symptoms which was well tolerated and she reported no side effects during the admission. She often stayed isolated within her room but occasionally interacted with group programing and no behavioral issues were noted. PRNs included: Hydroxyzine for anxiety (2 doses: 08/24, 08/25), Nicorette gum for nicotine cravings(3 doses: 08/24, 08/25, 08/26), Trazodone for sleep (2 doses: 08/24, 08/25). Ondate of discharge, she denied suicidal ideation, thoughts of self-harm, auditory or visual hallucina tions, or homicidal ideation. She has an appointment scheduled with her outpatient psychiatrist on 09/03 per mother and will continue previous outpatient DBT. voluntary admission. Continue latuda 80mg and give with evening meal. Continue lithium 900mg qhs. Add prozac 10mg every day. PRNs for comfort and safety. Sw and internal medicine consultation. Encourage active participation in psychotherapeutic groups and treatment planning. Active Issues Requiring Follow-up: Motivational interviewing, monitor for symptoms of eladio or side effects from Prozac 10mg daily, lithium level repeat Test Results Pending at Discharge: none Operative Procedures Performed: none Other Procedures: none Pertinent Test Results: Urine toxicology negative, TSH on 08/23 1.20, lithium level was 0.4 on 08/2307/07/22 tot chol 161, HDL 76, LDL 74, trig 39, Glc 86 Discharge Details Physical Exam at Discharge: Discharge Condition: good Pulse: 75 Resp: 20 BP: 103/66 Temp: 36.8 ??C (98.2 ??F) Weight: 68 kg (150 lb) Pertinent Exam Findings at Discharge: Total Hours of Sleep: 8 Mental Status Exam: General Appearance and Behavior: Appears stated age No apparent distress and Well-dressed Normal psychomotor activity Good eye contact Cooperative Speech: Regular rate Normal rhythm Normal volume Normal amount Normal tone Spontaneous Normal latency (<3 seconds) Flow of Thought: sequential and goal-directed Content of Thought: No SI/HI/AH/VH Mood: fine Affect: euthymic, anxious, normal amount, appropriate to conversation/situation, stable, and mood-congruent Insight: good Judgment: good Sensorium: alert, awake, and oriented x 3 Discharge Disposition: Discharge to home or self care Code Status at Discharge: full Discharge Instructions: Take latuda with full dinner. Continue to abstain from all recreational substances Discharge Medications: Current Medications TAKE these medications FLUoxetine 10 mg tablet/capsule Take 1 tablet/capsule (10 mg total) by mouth daily For: bipolar depression Commonly known as: PROzac Start taking on: August 27, 2022 hydrOXYzine 10 mg tablet Take 1 tablet (10 mg total) by mouth every 4 (four) hours as needed for anxiety For: anxious Commonly known as: ATARAX lithium ER 450 mg CR tablet Take 2 tablets (900 mg total) by mouth nightly For: manic-depression Commonly known as: ESKALITH lurasidone 80 mg tablet Take 1 tablet (80 mg total) by mouth daily with dinner For: bipolar depression Commonly known as: LATUDA nicotine polacrilex 2 mg gum Chew 1 each (2 mg total) every 2 (two) hours as needed for smoking cessation For: stop smoking Commonly known as: NICORETTE traZODone 100 mg tablet Take 1 tablet (100 mg total) by mouth nightly as needed for sleep For: insomnia associated with depression Commonly known as: DESYREL Outpatient Follow-Up: Future Appointments Date Time Provider Department Center 09/03/2022 3:15 PM Bettie Traore MD [facility] 10/27/2022 3:00 PM [facility] PSYCH FOLLOW UP [facility] documented in this encounter Medications at Time of Discharge levonorgestreL (Mirena) IUD 1 each by intrauterine route once 06/04/2022 FLUoxetine (PROzac) 10 mg tablet/capsuleIn dications:Depres mary associated with Bipolar Disorder Take 1 tablet/capsule (10 mg total) by mouth daily 30 tablet/capsul e 1 08/27/2022 3 hydrOXYzine (ATARAX) 10 mg tabletIndication s:anxiety Take 1 tablet (10 mg total) by mouth every 4 (four) hours as needed for anxiety 30 tablet 1 03/23/2022 3 lithium ER (ESKALITH) 450 mg CR tabletIndication s:Bipolar Disorder Take 2 tablets (900 mg total) by mouth nightly 60 tablet 08/26/2022 3 lurasidone (LATUDA) 80 mg tabletIndication s:Depression associated with Bipolar Disorder Take 1 tablet (80 mg total) by mouth daily with dinner 30 tablet 1 08/26/2022 3 nicotine polacrilex (NICORETTE) 2 mg gumIndications:S moking Cessation Chew 1 each (2 mg total) every 2 (two) hours as needed for smoking cessation 100 each 08/26/2022 4 traZODone (DESYREL) 100 mg tabletIndication s:insomnia associated with depression Take 1 tablet (100 mg total) by mouth nightly as needed for sleep 30 tablet 08/26/2022 4 documented as of this encounter Ordered Prescriptions Prescription Sig Dispense Quantity Refills Last Filled Start Date End Date FLUoxetine (PROzac) 10 mg tablet/capsuleIndi cations:Depression associated with Bipolar Disorder Take 1 tablet/capsule (10 mg total) by mouth daily 30 tablet/capsule 1 08/27/2022 3 traZODone (DESYREL) 100 mg tabletIndications: insomnia associated with depression Take 1 tablet (100 mg total) by mouth nightly as needed for sleep 30 tablet 08/26/2022 4 nicotine polacrilex (NICORETTE) 2 mg gumIndications:Smo haresh Cessation Chew 1 each (2 mg total) every 2 (two) hours as needed for smoking cessation 100 each 08/26/2022 4 lurasidone (LATUDA) 80 mg tabletIndications: Depression associated with Bipolar Disorder Take 1 tablet (80 mg total) by mouth daily with dinner 30 tablet 1 08/26/2022 3 lithium ER (ESKALITH) 450 mg CR tabletIndications: Bipolar Disorder Take 2 tablets (900 mg total) by mouth nightly 60 tablet 08/26/2022 3 documented in this encounter Discharge Disposition Disposition Code Departure Means Destination Comment s Discharge to home or self care documented in this encounter Progress Notes * Jamila Ochoa MSW - 08/26/2022 12:08 PM CDT 08/26/22 1207 Discharge Summary Chart reviewed For Medical Necessity Does patient have a planned readmission to hospital planned? No Discharge Disposition Private residence Discharge Records Chart Copied Equipment/Provider Needs No Home Needs Identified Discharge Additional Assistance Financial assistance Discharge medication assistance needed Does the patient need discharge transport arranged? Yes Has discharge transport been arranged? Yes Details of Transportation Parent in a private vehicle D/C Transport Anticipated Date 08/26/22 D/C Transport Anticipated Time 1500 Discharge Transportation Communication Mode of transport has been discussed with the patient/family. All are agreeable to the plan and understand their responsibilities to ensure the safe transfer. No further CM/SW intervention is anticipated at this time. Post Discharge Care Provider Post Discharge Care Plan Next level of care provider has access to complete EMR Patient Stephanie Coates was voluntarily admitted on 08/23 and discharged on 08/26. Her symptoms on admission included SI. Her discharge diagnosis was Bipolar disorder, current episode depressed, mild or moderate severity, unspecified. Patient was expected to meet goals of participating in groups and agreeing to a safe discharge plan. Patient attended groups and participated actively in them. Patient participated actively in discharge planning process. SW work interventions included initial social work assessment and support as needed. Patient was discharged to home and obtained transportation via parent. Mode of transport was discussed with the patient, family, doctors and nurses and all are agreeable to plan and understand their responsibilities to ensure a safe transfer. Patient has insurance that covers medicine and follow up care. Patient medications were filled and sent home with patient. Patient denied resources. Patient has follow up scheduled with psychiatrist, at the [facility]. Patient will receive social support from family. Patient was agreeable with discharge plans. Patient's family member agreed with discharge plans. Prior to discharge, Patient denied thoughts of harming self orothers. Social work services are terminated at this time. Jamila Ochoa LMSW * Simi Rodriguez MD - 08/26/2022 11:59 AM CDT Psychiatry Attending Progress Note Interval History: Chart reviewed and patient seen. Voluntary admission. Tolerating prozac addition well. Sleep and appetite intact, SI resolved. Requesting discharge today to resume outpatient management. No behavioral dyscontrol. Only prn use in past 24 hours nicorette x1 and 2010 trazodone with atarax. [facility] med[facility] today. Medications: FLUoxetine, 10 mg, oral, Daily lithium ER, 900 mg, oral, Nightly lurasidone, 80 mg, oral, Daily with dinner PRN Medications Medication Dose Route Frequency Last Admin hydrOXYzine (ATARAX) tablet 10 mg 10 mg oral Q4H PRN 10 mg at 08/25/222009 nicotine polacrilex (NICORETTE) gum 2 mg 2 mg mouth/throat Q2H PRN 2 mg at 08/26/22 1034 traZODone (DESYREL) tablet 100 mg 100 mg oral Nightly PRN 100 mg at 08/25/222009 Medication Compliance: Compliant Physical Exam: Vitals: 08/26/22 0745 BP: 103/66 Pulse: 75 Resp: 20 Temp: SpO2: Total Hours of Sleep: 8 Mental Status Exam: General Appearance and Behavior: Appears stated age No apparent distress and Well-dressed Normal psychomotor activity Good eye contact Cooperative Speech: Regular rate Normal rhythm Normal volume Normal amount Normal tone Spontaneous Normal latency (<3 seconds) Flow of Thought: sequential and goal-directed Content of Thought: No SI/HI/AH/VH Mood: fine Affect: euthymic, anxious, normal amount, appropriate to conversation/situation, stable, and mood-congruent Insight: good Judgment: good Sensorium: alert, awake, and oriented x 3 Lab/Radiology/Diagnostic Review: Laboratory review: Lab results in the last 48 hours: No results found for this or any previous visit (from the past 48 hour(s)). PRIMARY DIAGNOSIS: Bipolar disorder, current episode depressed, mild or moderate severity, unspecified ([facility]) Assessment: patient known to me, established diagnosis. Previously seen in manic state now clearly in depressed phase of illness and discouraged. 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 She is actively engaged with outpatient group and individual therapies. Currently tearful, passive SI, anhedonia, low energy, loneliness Plan:voluntary admission. Continue latuda 80mg and give with evening meal. Continue lithium 900mg qhs. Add prozac 10mg every day. PRNs for comfort and safety. Sw and internal medicine consultation. Encourage active participation in psychotherapeutic groups and treatment planning. Discharge 08/26/22 at patent request to follow up with established outpatient care. Meds ordered through [facility]. * Simi Rodriguez MD - 08/26/2022 11:57 AM CDT Behavioral Health Transition of Care Patient Name: Stephanie Coates Date of : 2000 Sex: Female Admission Date: 08/23/2022 Discharge Date: 08/26/2022 Admission Diagnosis: Suicidal ideation [R45.851] Depression, unspecified depression type [F32.A] Discharge Diagnosis: bipolar, depressed Reason for inpatient psychiatric hospitalization (documentation of the symptoms/events the patient experienced prior to this hospitalization): SI Metabolic Lab Results: Body mass index is 25.75 kg/m??. Resulted in the Past 12 Months 08/23/22 1458 07/07/22 0803 02/23/22 0537 02/01/22 1037 GLUCOSE 86 -- < > 88 HGBA1C -- 4.9 < > -- CHOL -- 161 -- 127 HDL -- 76 -- 58 LDLCALC -- -- -- 63 TRIG -- 39 -- 30 NONHDLCHOL -- 85 -- 69 < > = values in [...] emergency contact information related to inpatient stay: [facility]: [phone] (ask for Charge Nurse) Primary Physician, other healthcare professional, or site for follow up care ([facility] has specific follow up appointments): PCP: Marlin Contreras MD [facility] psychiatry These instructions have been provided to and reviewed with the patient/palliative care specialist prior to discharge: Yes * Jamila Ochoa MSW - 08/25/2022 2:05 PM CDT SULEMAN spoke with pt's mother to provide an update on pt. Lu reports that pt has really been struggling with depression and not attending to her daily hygiene needs. Mother did not report any other concerns at this time. Lu (Mother) [phone] * Patrica Elena CTRS - 08/25/2022 9:11 AM CDT Activity Therapy Assessment Pt was BIB her father after she began experiencing SI. Pt has been feeling depressed, hopeless, andworthless, but does not know what is triggering these feelings. Pt has been unable to enjoy the activities she takes part in, and has been unemployed from her [employer] career lately. Pt is denying SIat this time, and denies all drug and alcohol use. Pt does not think the medications she's taking are working for her. Pt is worried about herself because she has lost friends to suicide in the past.Pt enjoys arts/crafts, movies, exercising, sports, and traveling. Pt also enjoys listening to all kinds of music, especially rap. Pt considers her parents, and her counselor to be her support system,and her goal is to feel better . Plan of care: Provide access to leisure activities, and continue to encourage group participation. Provide healthy coping skills, stress management, and relief from symptoms. BRANT Guzman 08/25/22 0800 Patient Info Marital Status Single Source of Information Interview Socialization Changes in Socialization Decrease in socialization Social Behaviors Eye Contact Occasional Speech Regular rate and rhythm (RRR) Quality of Grooming Good Affect Normal Thought Content Other (Comment) (Clear) Hallucinations (Pt denies both) Insight Good Orientation Orientation Place;Person;Time;Situation Hobbies and Leisure Hobbies/Leisure Interests Crafts/Arts;Exercise;Movies;Other (Comment) (Traveling) Changes in Leisure Functioning Decrease in leisure functioning;Lack of enjoyment Life Skills/ Activities of Daily Living Deficits in Functional [place] Poor stress management skills;Poor structure of time Musical Interests Listens to Music All kinds Recommended Activity Therapy Recommended Activity Therapy Plan Appropriate for group setting * Sugar Vaughan MSW - 08/24/2022 2:54 PM CDT Psychiatry Social Work Assessment Clinical Dx: Depression, unspecified depression type Past Psychiatric History: Past Psychiatric History Previous Self Harm/Suicidal Attempts: No Patient currently seeing an outpatient psychiatrist? : No Current outpatient community case manager? : No Mental Health Onset: Per chart, 2020 Previous Psychiatric Admission: Yes (Comment) Dates of previous psychiatric admissions: 03/22-, 02/23-02/27/22 and 02/01- Last appointment with psychiatric provider? 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 Current Transportation: Own vehicle Use of time: Phone. Opportunity to Socialize: Pt has opportunity to socialize. (08/24/221437) Reason for Current Hospitalization: Precipitating Event: Patient arrives with worsening suicidal thoughts for the past few weeks. Legal History: Legal History Legal Information : No legal issues (08/24/221437) Support Systems and Spirituality: Support Systems and Spirituality Support System: Parent Patient/Significant other participation : Pt particpated actively in assessment. Support Contact Name/Number: Colten [phone] and mother [phone] Family Perspective: Pt gave verbal permission to contact collateral. Past Support System : Parents. Parents : Living. Children : None Siblings: Pt reports one brother/ Do you have a Anabaptist Preference or Affiliation?: No Are there any Anabaptist Practices that are important to maintain while admitted?: No Referral to Punch Press Operator : No Hope and Strength during Difficult Times: God Do you have Cultural Factors that are important to you?: No Family History of Mental Illness: Unknown Sexual Orientation : Heterosexual Born and Raised: [place], [place] Description of Childhood: Stable. History of physical abuse? : No History of physically abusing others? : No History of sexual abuse?: No History of sexually abusing others? : No History of Mental/Emotional Abuse? : No (08/24/22 2730) Strengths, Assets, Liabilities and Stressors: Strengths, Assets, Liabilities, and Stressors Strengths (Must Choose Two): Access to housing/residential stability, Interpersonal relationships and supports,i.e., family, friends, peers, Managing surrounding demands and opportunities Patient Assets: Education, Involved outpatient professional, Supportive family, Supportive friends,Therapist, Psychiatrist, Access to services, Home, Use of Supports Does Pt have access to Employee Assistance Program: No Patient Barriers : Negative coping skills Current Stressors: No income, Coping skills (08/24/22 5471) Social Determinants of Health Tobacco Use: High Risk (08/23/2022) Patient History Smoking Tobacco Use: Every Day Smokeless Tobacco Use: Unknown Passive Exposure: Not on file Alcohol Use: Not At Risk (02/23/2022) AUDIT-C Frequency of Alcohol Consumption: Monthly or less Average Number of Drinks: 1 or 2 Frequency of Binge Drinking: Never Financial Resource Strain: Low Risk (08/24/2022) Overall Financial Resource Strain (CARDIA) Difficulty of Paying Living Expenses: Not very hard Food Insecurity: No Food Insecurity (02/23/2022) Hunger Vital Sign Worried About Running Out of Food in the Last Year: Never true Ran Out of Food in the Last Year: Never true Transportation Needs: No Transportation Needs (08/24/2022) PRAPARE - Transportation Lack of Transportation (Medical): No Lack of Transportation (Non-Medical): No Physical Activity: Inactive (08/24/2022) Exercise Vital Sign Days of Exercise per Week: 0 days Minutes of Exercise per Session: 0 min Stress: Stress Concern Present (08/24/2022) [employer] [place] [facility] - Occupational Stress Questionnaire Feeling of Stress : Rather much Social Connections: Socially Isolated (02/23/2022) Social Connection and Isolation Panel [NHANES] Frequency of Communication with Friends and Family: More than three times a week Frequency of Social Gatherings with Friends and Family: More than three times a week Attends Anabaptist Services: Never Active Member of Clubs or Organizations: No Attends Club or Organization Meetings: Never Marital Status: Never Intimate Partner Violence: Not At Risk (02/23/2022) Humiliation, Afraid, Rape, and Kick questionnaire Fear of Current or Ex-Partner: No Emotionally Abused: No Physically Abused: No Sexually Abused: No Depression: Not at risk (02/23/2022) PHQ-2 PHQ-2 Score: 1 Housing Stability: Low Risk (02/23/2022) Housing Stability Vital Sign Unable to Pay for Housing in the Last Year: No Number of Places Lived in the Last Year: 1 Unstable Housing in the Last Year: No Substance Abuse Details: E-Cigarette/Vaping Questions Responses E-cigarette/Vaping Use Current Some Day User E-Cigarette/Vaping Substances Questions Responses Nicotine Yes History of Substance Abuse Treatment: Pt denied. Result of Treatment: N.A Family History of Substance Abuse: Pt denied Chemical Dependency Insight: UDS negative. Depression Screening Pt denied. Risk to Self and Others: Risk to Self and Others Violence risk to self in past 6 months? : No Self Harm/Suicidal Ideation Plan: No Previous Self Harm/Suicidal Attempts: No Violence risk to others in past 6 months? : No Any lifetime risk of violence to others? : No Current Plans to Harm Another: No (08/24/228) Affect and Mood: Affect/Mood Affect: Calm Mood: Content (08/24/221435) Hopelessness, Helpfulness, Worthlessness: Hopelessness Helplessness Worthlessness Feelings of Hopelessness: No Feelings of Helplessness: No Feelings of Worthlessness: No (08/24/221435) Thought Content: Thought Content Delusions: No delusions Hallucinations: None Ambivalence: Yes (08/24/221435) Behavior: Behavior Eye Contact: Good Exhibited Behaviors/Symptoms : Calm, Friendly (08/24/221435) Behavioral Management: Behavioral Management Do you now have or have you had any of the these? : Anxiety Signs of Anger, Frustration, or Fright: Tell us What upsets you or makes you feel anxious or frightened? : None. Methods to Calm Down: No preference (08/24/221435) Past Psych Hx: Past Psychiatric History Previous Self Harm/Suicidal Attempts: No Patient currently seeing an outpatient psychiatrist? : No Current outpatient community case manager? : No Mental Health Onset: Per chart, 2020 Previous Psychiatric Admission: Yes (Comment) Dates of previous psychiatric admissions: 03/22-, 02/23-02/27/22 and 02/01-22/22 Last appointment with psychiatric provider? : Last (08/24/221435) Problem/Goals: Problems/Goals Problems Identified by Social Work: Si and medication adjustments Short term goals: Eliminate thoughts of SI and engage in unot programming. Patient Stated Goals: Try something new. Life Skills Coach Goals: Unknown Social Work Plan/Intervention: Provide ongoing assessment, offer groups and assist with discharge planning. (08/24/221435) Discharge Planning: Discharge Planning Support System: [facility] Resources: Mental health Home Care Services: No Patient expects to be discharged to:: Private residence Anticipated discharge level of care: Private residence Pt/Family agrees with Anticipated Level of Care: No Does the patient need discharge transport arranged?: No Has discharge transport been arranged?: No Details of Transportation: Parents Medication Management: Self-pay Can Patient Afford Co-Payments: Yes Co-Payment Comment: Self-pay Medication Assistance: Pt qualifies for medication assistances Psychiatric Follow Up: [facility] and [facility]BT therapy. (08/24/221434) Dialysis: Collaboration: Socialization Socialization : Family Collaboration Interview/Collaboartion with : Patient, Physician Discussed plan and provided support and counseling to: Patient, Physician Plan agreed upon by : Patient, Physician Disagreed with plan: No one (08/24/221435) Preferred Pharmacy: [address] [address] [id number] [place] [id number] [facility] [phone] [place] [id number] Impressions: Stephanie Coates is a 22 y.o. single, heterosexual, domiciled with family, unemployed, female that admitted voluntarily to [facility] hospital for SI. Pt participated actively in assessment and reports family as support. Pt reports she does have outpatient follow-up through the [facility] and DBT therapy. Pt reports her last session was last . Pt gave permission to contact mother and father throughout course and denied SI, HI, aH and VH. Pt has a outpatient appointment scheduled on September 03 at 3:15 p.m. Recommendations: Pt would benefit from continued monitoring, medicine adjustment and attending groups. SW will provide support as needed and will encourage participation in unit programming. SW will coordinate treatment and discharge planning with treatment team. Sugar Vaughan LMSW * Jimmy Ruiz MD - 08/23/2022 3:23 PM CDT SAFE-T Protocol with C-SSRS (Peever Risk and Protective Factors) - Recent Step 1: Identify Risk Factors: Peever Suicide Severity Rating Scale (Recent Screener) Initial Screening: Reassessment (as needed): Is this encounter related to a suicidal attempt/behavior? Yes Yes Information obtained from: Patient Patient 1. In the past month, have you wished you were or that you could go to sleep and not wake up? Yes Yes 2. In the past month, have you actually had any thoughts of killing yourself? Yes Yes 3. In the past month, have you been thinking about how you might kill yourself? Yes Yes 4. In the past month, have you had these thoughts and had some intention of acting on them? Yes No 5. In the past month, have you started to work out or worked out the details of how to kill yourself and do you intend to carry out this plan? No Yes 6. In the past month, have you ever done anything, started to do anything, or prepared to do anything to end your life? No No 6b. Was this within the past three months? Suicide Risk Level: High N/A Activating Events: none Treatment History: Previous psychiatric diagnosis and treatments Clinical Status: Other: Previous diagnosis of bipolar disorder Access to lethal methods (specifically about the presence or absence of a firearm in the home or ease of accessing): No Step 2: Identify Protective Factors (Protective factors may not counteract significant acute suicide risk factors): Internal: wants to live External: Step 3: Specific Questioning about Thoughts, Plans, and Suicidal Intent (see Step 1 for Ideation Severity and Behavior): C-SSRS Suicidal Ideation Intensity (with respect to the most severe ideation 1-5 identified above) Month Frequency In the past month, how many times have you had these thoughts? Duration When you have the thoughts how long do they last? briefly Controllability Could/can you stop thinking about killing yourself or wanting to if you want to? (3) Can control thoughts with some difficulty Deterrents Are there things - anyone or anything (e.g., family, cheondoism, pain of ) - that stopped you from wanting to or acting on thoughts of suicide? (0) Does not apply Reasons for Ideation What sort of reasons did you have for thinking about wanting to or killing yourself? Was it to end the pain or stop the way you were feeling (in other words you couldn???t go on livingwith this pain or how you were feeling) or was it to get attention, revenge or a reaction from others? Or both? (0) Does not apply Total Suicidal Ideation Intensity Score* (add values of selected answers above) *Score can range from 2- 25: -Low: 2-5 -Moderate: 6-10 -Moderately Severe: 11-15 -Severe: 16-20 -Very Severe: 21-25 Step 4: Guidelines to Determine Level of Risk and Develop Interventions to LOWER Risk Level: Assessment of risk level is based on clinical judgment after completing steps 1-3. The Suicide Ideation Intensity Score does not directly correlate to Suicide Risk. The Suicide Ideation Intensity score must be used in conjunction with clinical judgment to determine risk stratification. Initial Risk Stratification Suggested Interventions High Suicide Risk Suicidal ideation with intent or intent with plan in past month (C-SSRS Suicidal Ideation #4 or #5) OR Suicidal behavior within past 3 months (C-SSRS Suicidal Behavior) High Suicide Precautions 1:1 observation All belongings secured Hospital attire Elopement precautions Minimize environment risk in room Moderate-High Suicide Risk Suicidal ideation with method WITHOUT plan, intent or behavior in past month (C- SSRS Suicidal Ideation #3) OR Multiple risk factors and few protective factors Moderate-High Suicide Precautions Patient sitter not required May keep items evaluated as safe, other belongings secured Hospital attire Minimize environment risk in room Moderate-Low Suicide Risk Suicidal behavior more than 3 months ago (C-SSRS Suicidal Behavior Lifetime) OR Multiple risk factors and few protective factors Moderate-Low Suicide Precautions Resources given to patient Nursing handoff precautions Low Suicide Risk Wish to or Suicidal Ideation WITHOUT method, intent, plan or behavior (C- SSRS Suicidal Ideation#1 or #2) OR Modifiable risk factors and strong protective factors OR No reported history of Suicidal Ideation or Behavior Low Suicide Precautions Resources given to patient Step 5: Assessment and Plan: Updated Risk Level: Moderate-High Suicide Risk Rationale for risk level decision and actions taken: Patient does not appear to have true suicidal intent, just intrusive thoughts. Patient wants to live. She just feels very depressed. documented in this encounter H&P Notes * Simi Rodriguez MD - 08/25/2022 1:30 PM CDT Inpatient Psychiatric Attending Intake Assessment CURRENT DIAGNOSES: Principal Problem: Bipolar disorder, current episode depressed, mild or moderate severity, unspecified (HCC) REASON FOR INPATIENT ADMISSION: SI INITIAL CERTIFICATION: The patient requires active [...] at this time due to: Patient is at risk of harm to self. It ismy assessment that the services/treatment are reasonably expected to improve the patient's condition . IDENTIFYING INFORMATION: This is the 4th psychiatric admission for this 22 y.o. year old, single, White ,unemployed female with a history of bipolar I diagnosed in Fall 2021 who was brought to the hospital by self for SI andsymptoms of depression. Admission Status: Voluntary GUARDIANSHIP: No POWER OF OFFICE RUNNER ([place] ONLY): SOURCE OF INFORMATION: Patient known to me from first admission. EHR and patient CHIEF COMPLAINT: Just having suicidal thoughts, that's all. Not feeling the best reports duration is couple weeks and denies any precipitating stressor. HISTORY OF PRESENT ILLNESS: 22yo known to me from early January 2022 admission when she had her first psychiatric admission inthe context of a manic episode with psychotic features. Since then eladio has stabilized and is now prescribed lithium 900mg qhs and latuda 80mg in the evening. She reports she takes the latuda with food but not clearly with a meal of at least 300 calories. She alternates staying with her mother and her father. She has been clean of any recreational substances and is sad and frustrated with difficulties stabilizing her mood (tearful during the interview). She reports she is attending both individual and group therapies at [facility] and sees psychiatric resident Bettie Traore at [facility] ~ q6 weeks. She reports she sleeps wellat night and appetite is intact, but low energy during the day, anhedonia, a single friend left, and little future planning. She reports she spent Memorial Day weekend with her mother and maternal grandmother and they (not her) grilled. She reports fearing future manic episodes and reports passive SI waxes and wanes. Utox is negative. No access to firearms, no current legal issues Past Medical History: Diagnosis Date Bipolar 1 disorder (HCC) History reviewed. No pertinent surgical history. ALLERGIES: Allergies Allergen Reactions Sulfa (Sulfonamide Antibiotics) Hives Sulfamethoxazole-Trimethoprim Itching and Rash MEDICATIONS: Facility-Administered Medications Prior to Admission Medication Dose Route Frequency Provider Last Rate Last Admin ARIPiprazole lauroxil (ARISTADA) intramuscular syringe 882 mg 882 mg intramuscular every 4 weeks Bettie Traore MD 882 mg at 04/02/22 1607 Medications Prior to Admission Medication Sig Dispense Refill Last Dose atomoxetine (STRATTERA) 40 mg capsule Take 1 [...] Route Frequency Provider Last Rate Last Admin FLUoxetine (PROzac) tab/cap 10 mg 10 mg oral Daily Simi Rodriguez MD hydrOXYzine (ATARAX) tablet 10 mg 10 mg oral Q4H PRN Naomi Cabral MD 10 mg at 08/24/222053 lithium ER (ESKALITH) extended release tablet 900 mg 900 mg oral Nightly Naomi Cabral MD900 mg at 08/24/221819 lurasidone (LATUDA) tablet 80 mg 80 mg oral Daily with dinner Simi Rodriguez MD 80 mg at 08/24/221819 nicotine polacrilex (NICORETTE) gum 2 mg 2 mg mouth/throat Q2H PRN Simi Rodriguez MD 2 mg at 08/24/221835 traZODone (DESYREL) tablet 100 mg 100 mg oral Nightly PRN Naomi Cabral MD 100 mg at 08/24/222053 Not Compliant with the following meds: compliant but might not always be taking latuda with adequate calories (she has gained considerable weight since January 2022 and 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 No pertinent family history. Social History Tobacco Use Smoking status: Every Day Types: Vaping Start date: 03/28/2017 Last attempt to quit: 03/23/2022 Years since quittin.4 Smokeless tobacco: None Substance and Sexual Activity Drug use: None Sexual activity: None Alcohol Use: Not At Risk (02/23/2022) AUDIT-C Frequency of Alcohol Consumption: Monthly or less Average Number of Drinks: 1 or 2 Frequency of Binge Drinking: Never Social History Social History Narrative Not on file ASSETS: supportive parts. Established psychotherapy and psychiatry services in the community REVIEW OF SYSTEMS: Please see SANITARY INSPECTOR/MD Consult note PHYSICAL EXAMINATION: Vitals: 08/25/22 0700 BP: 114/75 Pulse: 91 Resp: 20 Temp: 36.8 ??C (98.3 ??F) SpO2: 99% No intake/output data recorded. No intake/output data recorded. Please see SANITARY INSPECTOR/MD Consult note for additional details NEUROLOGICAL EXAMINATION: Please see SANITARY INSPECTOR/MD Consult MENTAL STATUS EXAMINATION: General Appearance and Behavior: Appears stated age No apparent somatic distress, easily tearful Normal psychomotor activity Fair eye contact Cooperative Speech: Regular rate Normal rhythm Normal volume Decreased amount Normal tone Spontaneous Normal latency (<3 seconds) Flow of Thought: sequential and goal-directed Content of Thought: Waxing and waning passive SI. No HI/AH/VH Mood: fine Affect: dysthymic, restricted range, appropriate to conversation/situation, mood-incongruent, and tearful Insight: good Judgment: good Sensorium: alert, awake, and oriented x 3 Calculations: not done/clinically indicated Abstraction: not done/clinically indicated Language: elevated vocabulary Attention: normal based on conversation/exam Memory: normal based on conversation/exam Fund of Knowledge: normal or above average based on conversation/exam LABORATORY/DIAGNOSTIC DATA REVIEW: Laboratory review: Lab results in the last 48 hours: Recent Results (from the past 48 hour(s)) CBC with auto differential Collection Time: 08/23/22 2:58 PM Result Value Ref Range WBC 10.1 (H) 3.8 - 9.9 K/cumm Hgb 13.8 11.9 - 15.5 g/dL Hct 41.9 35.6 - 45.5 % Plt 377 150 - 400 K/cumm MPV 9.1 9.1 - 12.3 fL RBC 4.63 3.90 - 5.20 M/cumm MCV 90.5 81.3 - 96.4 fL MCH 29.8 27.1 - 33.3 pg MCHC 32.9 32.3 - 35.7 g/dL RDW CV 12.3 11.1 - 14.9 % RDW SD 40.2 35.7 - 48.1 fL NRBC abs 0.00 0.00 - 0.01 K/cumm Comprehensive metabolic panel Collection Time: 08/23/22 2:58 PM Result Value Ref Range Sodium 140 135 - 145 mmol/L Potassium, pl 4.0 3.3 - 4.9 mmol/L Chloride 103 97 - 110 mmol/L CO2 27 22 - 32 mmol/L Anion gap 10 2 - 15 mmol/L BUN 9 8 - 25 mg/dL Creatinine 0.78 0.60 - 1.10 mg/dL Glucose 86 70 - 199 mg/dL Calcium 10.0 8.5 - 10.3 mg/dL Bilirubin, total 0.4 0.1 - 1.2 mg/dL Protein, pl 7.5 6.5 - 8.5 g/dL Albumin 4.9 3.5 - 5.0 g/dL Alk phos 100 40 - 130 Units/L ALT 14 7 - 45 Units/L AST 23 10 - 45 Units/L TSH reflex to free T4 Collection Time: 08/23/22 2:58 PM Result Value Ref Range TSH 1.20 0.30 - 4.20 mcIUnit/mL Ethanol Collection Time: 08/23/22 2:58 PM Result Value Ref Range Ethanol <10 <=10 mg/dL Drugs of Abuse Screen, Urine without Confirmation Collection Time: 08/23/22 2:58 PM Result Value Ref Range Amphetamine, ur [...] Not Detected CutOff 25 ng/mL Urine Creatinine 182 mg/dL Urinalysis reflex to microscopic Collection Time: 08/23/22 2:58 PM Result Value Ref Range Color, ur Yellow Yellow Clarity, ur Cloudy (A) Clear Specific gravity, ur 1.024 1.003 - 1.030 pH, urine 6.5 Protein, ur ql Trace Negative Glucose, ur ql Negative Negative Ketones, ur Negative Negative Bilirubin, ur Negative Negative Blood, ur Negative Negative Urobilinogen, ur <2.0 <2.0 mg/dL Nitrite, ur Negative Negative Leukocyte esterase, ur 1+ (A) Negative UA reflex comment Reflex to microscopic UA will be performed. Differential, auto Collection Time: 08/23/22 2:58 PM Result Value Ref Range Neutrophil abs 6.3 1.7 - 6.5 K/cumm Imm gran abs 0.0 0.0 - 0.1 K/cumm Lymphocyte abs 2.7 0.8 - 3.3 K/cumm Monocyte abs 0.8 0.2 - 0.8 K/cumm Eosinophil abs 0.2 0.0 - 0.5 K/cumm Basophil abs 0.1 0.0 - 0.1 K/cumm Neutrophil pct 62.9 % Imm gran pct 0.4 % Lymphocyte pct 26.4 % Monocyte pct 7.4 % Eosinophil pct 2.3 % Basophil pct 0.6 % Urinalysis, microscopic only Collection Time: 08/23/22 2:58 PM Result Value Ref Range WBC, ur 11-20 (A) 0 - 5 /HPF RBC, ur 0-2 0 - 2 /HPF Epithelial cells, squamous, ur 1-5 0 - 5 /HPF Bacteria, ur 3+ (A) Mucous, ur Present (A) Amorphous crystals, ur 1+ (A) eGFR Collection Time: 08/23/22 2:58 PM Result Value Ref Range eGFR >90 90 - 130 mL/min/1.73 m2 POCT hCG, urine Collection Time: 08/23/22 3:02 PM Result Value Ref Range HCG, ur, POC Negative Lot Number [id number] QC Backgroud Clear Acceptable QC Control Line Acceptable [place] level Collection Time: 08/23/22 3:03 PM Result Value Ref Range [place] 0.4 (L) 0.6 - 1.2 mmol/L PRIMARY DIAGNOSIS/ REASON FOR INPATIENT ADMISSION: Bipolar disorder, current episode depressed, mild or moderate severity, unspecified ([facility]) Assessment: patient known to me, established diagnosis. Previously seen in manic state now clearly in depressed phase of illness and discouraged. 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 She is actively engaged with outpatient group and individual therapies. Currently tearful, passive SI, anhedonia, low energy, loneliness Plan:voluntary admission. Continue latuda 80mg and give with evening meal. Continue lithium 900mg qhs. Add prozac 10mg every day. PRNs for comfort and safety. Sw and internal medicine consultation. Encourage active participation in psychotherapeutic groups and treatment planning. documented in this encounter Consult Notes * Jadyn Patel MD - 08/23/2022 6:12 PM CDTAssociated Order(s): IP CONSULT TO PSYCHIATRY ED Psychiatric Assessment CURRENT PROBLEMS: Principal Problem: Depression, unspecified depression type IDENTIFYING INFORMATION: This is a 22 y.o. year old, single, White ,unemployed female with a history of BPAD type I who was brought to the hospital by self for SI. GUARDIANSHIP: no SOURCE OF INFORMATION: Patient, appears reliable EMR, reliable Unable to reach outpatient psychiatrist, Dr. Traore () CHIEF COMPLAINT: I've been struggling for a while HISTORY OF PRESENT ILLNESS: Patient is known [facility] - for complete psychiatric hx, please refer to intake H&P byoutpatient psychiatrist Dr. Bettie Traore, dated 03/05/2022. In brief, patient had onset of depressive sx around age 17 [low mood, anhedonia, decreased energy and motivation, poor appetite and SI]. She was diagnosed with ADHD and began taking Vyvanse in 2020. Patient then developed manic symptoms for the first time this past year c/b DNFS, increased goal directed behavior, increased energy, pressured speech, hyper-sexuality (promiscuous), hyper- religiosity, grandiosity, and delusions (erotomanic of being Aiden Noriega's /fiana rosae, grandiosie/odd of being Perfecto Leyva's daughter, etc.). She was admitted to [facility] for eladio for 15 days in January 2022 and was discharged on aristada + thorazine; was admitted again a few days later w ongoing eladio and treated with risperidone, lithium, and plan for cont'd aristada. Patient was hospitalized again in Feb 2022 for passive SI without change in medications. Most recent OP medication regimen includes lithium 900mg qhs, latuda 80mg qhs, PRN hydroxyzine, and a recent trial of strattera (discontinued in last few weeks for ineffectiveness). In the ED, lithium level of 0.4, though patient reports she took her 900mg of lithium yesterday at 1pm. States this was unusual, she usually takes it at night. Confirms she takes latuda with food. Today patient presents reporting several weeks of low mood, with sadness, poor energy, poor sleep, and worsening suicidal thoughts with recent development of a plan to overdose on medications or hangherself. She requested that family take her to the ED after she felt she was not able to keep herself safe any longer due to SI and requests admission to psychiatry. Reports ongoing struggle with fallout from her manic episode earlier in the year ( did a lot of things I wish I hadn't done ) that she feels is largely driving her low mood. Past Medical History: Diagnosis Date Bipolar 1 disorder (HCC) History reviewed. No pertinent surgical history. ALLERGIES: Allergies Allergen Reactions Sulfa (Sulfonamide Antibiotics) Hives Sulfamethoxazole-Trimethoprim Itching and Rash MEDICATIONS: (Not in a hospital admission) Current Facility-Administered Medications Medication Dose Route Frequency Provider Last Rate Last Admin ARIPiprazole lauroxil (ARISTADA) intramuscular syringe 882 mg 882 mg intramuscular every 4 weeks Bettie Traore MD 882 mg at 04/02/22 1607 atomoxetine (STRATTERA) capsule 40 mg 40 mg oral Daily Naomi Cabral MD hydrOXYzine (ATARAX) tablet 10 mg 10 mg oral Q4H PRN Naomi Cabral MD lithium ER (ESKALITH) extended release tablet 450 mg 450 mg oral BID with meals (bkfst, dinner) Naomi Cabral MD lurasidone (LATUDA) tablet 80 mg 80 mg oral Daily Naomi Cabral MD traZODone (DESYREL) tablet 100 mg 100 mg oral Nightly PRN Naomi Cabral MD Current Outpatient Medications Medication Sig Dispense Refill [...] nightly as needed for sleep30 tablet 1 Not Compliant with the following meds: strattera (ineffective) History reviewed. No pertinent family history. Social History Tobacco Use Smoking status: Every Day Types: Vaping Start date: 03/28/2017 Last attempt to quit: 03/23/2022 Years since quittin.4 Smokeless tobacco: None Substance and Sexual Activity Drug use: None Sexual activity: None Alcohol Use: Not At Risk (02/23/2022) AUDIT-C Frequency of Alcohol Consumption: Monthly or less Average Number of Drinks: 1 or 2 Frequency of Binge Drinking: Never Social History Social History Narrative Not on file REVIEW OF SYSTEMS: Review of systems per HPI and otherwise all other systems are negative PHYSICAL EXAMINATION: Vitals: 08/23/22 1442 BP: 129/80 Pulse: 103 Resp: 16 Temp: 36.6 ??C (97.9 ??F) SpO2: 100% No intake/output data recorded. No intake/output data recorded. I have reviewed the ER physician's physical exam as documented in his/her note MENTAL STATUS EXAMINATION: General Appearance and Behavior: CF in NAD, dressed in scrubs, pleasant and cooperative, psychomotor neutral. Good EC. Tears up easily when discussing manic episode and her regrets about her actions during that time Speech: Regular rate Normal rhythm Normal volume Normal amount Normal tone Spontaneous Normal latency (<3 seconds) Flow of Thought: logical, sequential, and goal-directed Content of Thought: +SI with plan to OD vs hang herself. NO HI, AVH, no apparent delusions or paranoia Mood: bad Affect: dysthymic, restricted range, appropriate to conversation/situation, stable, and mood-congruent Insight: good Judgment: fair Sensorium: alert, awake, and oriented x 3 Calculations: not done/clinically indicated Abstraction: not done/clinically indicated Language: average vocabulary Attention: normal based on conversation/exam Memory: normal based on conversation/exam Fund of Knowledge: normal or above average based on conversation/exam LABORATORY/DIAGNOSTIC DATA REVIEW: Laboratory review: Lab results in the last 24 hours: Recent Results (from the past 24 hour(s)) CBC with auto differential Collection Time: 08/23/22 2:58 PM Result Value Ref Range WBC 10.1 (H) 3.8 - 9.9 K/cumm Hgb 13.8 11.9 - 15.5 g/dL Hct 41.9 35.6 - 45.5 % Plt 377 150 - 400 K/cumm MPV 9.1 9.1 - 12.3 fL RBC 4.63 3.90 - 5.20 M/cumm MCV 90.5 81.3 - 96.4 fL MCH 29.8 27.1 - 33.3 pg MCHC 32.9 32.3 - 35.7 g/dL RDW CV 12.3 11.1 - 14.9 % RDW SD 40.2 35.7 - 48.1 fL NRBC abs 0.00 0.00 - 0.01 K/cumm Comprehensive metabolic panel Collection Time: 08/23/22 2:58 PM Result Value Ref Range Sodium 140 135 - 145 mmol/L Potassium, pl 4.0 3.3 - 4.9 mmol/L Chloride 103 97 - 110 mmol/L CO2 27 22 - 32 mmol/L Anion gap 10 2 - 15 mmol/L BUN 9 8 - 25 mg/dL Creatinine 0.78 0.60 - 1.10 mg/dL Glucose 86 70 - 199 mg/dL Calcium 10.0 8.5 - 10.3 mg/dL Bilirubin, total 0.4 0.1 - 1.2 mg/dL Protein, pl 7.5 6.5 - 8.5 g/dL Albumin 4.9 3.5 - 5.0 g/dL Alk phos 100 40 - 130 Units/L ALT 14 7 - 45 Units/L AST 23 10 - 45 Units/L TSH reflex to free T4 Collection Time: 08/23/22 2:58 PM Result Value Ref Range TSH 1.20 0.30 - 4.20 mcIUnit/mL Ethanol Collection Time: 08/23/22 2:58 PM Result Value Ref Range Ethanol <10 <=10 mg/dL Drugs of Abuse Screen, Urine without Confirmation Collection Time: 08/23/22 2:58 PM Result Value Ref Range Amphetamine, ur [...] Not Detected CutOff 25 ng/mL Urine Creatinine 182 mg/dL Urinalysis reflex to microscopic Collection Time: 08/23/22 2:58 PM Result Value Ref Range Color, ur Yellow Yellow Clarity, ur Cloudy (A) Clear Specific gravity, ur 1.024 1.003 - 1.030 pH, urine 6.5 Protein, ur ql Trace Negative Glucose, ur ql Negative Negative Ketones, ur Negative Negative Bilirubin, ur Negative Negative Blood, ur Negative Negative Urobilinogen, ur <2.0 <2.0 mg/dL Nitrite, ur Negative Negative Leukocyte esterase, ur 1+ (A) Negative UA reflex comment Reflex to microscopic UA will be performed. Differential, auto Collection Time: 08/23/22 2:58 PM Result Value Ref Range Neutrophil abs 6.3 1.7 - 6.5 K/cumm Imm gran abs 0.0 0.0 - 0.1 K/cumm Lymphocyte abs 2.7 0.8 - 3.3 K/cumm Monocyte abs 0.8 0.2 - 0.8 K/cumm Eosinophil abs 0.2 0.0 - 0.5 K/cumm Basophil abs 0.1 0.0 - 0.1 K/cumm Neutrophil pct 62.9 % Imm gran pct 0.4 % Lymphocyte pct 26.4 % Monocyte pct 7.4 % Eosinophil pct 2.3 % Basophil pct 0.6 % Urinalysis, microscopic only Collection Time: 08/23/22 2:58 PM Result Value Ref Range WBC, ur 11-20 (A) 0 - 5 /HPF RBC, ur 0-2 0 - 2 /HPF Epithelial cells, squamous, ur 1-5 0 - 5 /HPF Bacteria, ur 3+ (A) Mucous, ur Present (A) Amorphous crystals, ur 1+ (A) eGFR Collection Time: 08/23/22 2:58 PM Result Value Ref Range eGFR >90 90 - 130 mL/min/1.73 m2 POCT hCG, urine Collection Time: 08/23/22 3:02 PM Result Value Ref Range HCG, ur, POC Negative Lot Number [id number] QC Backgroud Clear Acceptable QC Control Line Acceptable [place] level Collection Time: 08/23/22 3:03 PM Result Value Ref Range [place] 0.4 (L) 0.6 - 1.2 mmol/L Principal Problem: Depression, unspecified depression type PRIMARY DIAGNOSIS/ REASON FOR INPATIENT ADMISSION: BPAD I, current episode depressed This is a 22 y.o. year old, single, White ,unemployed female with a history of BPAD type I who was brought to the hospital by self for SI. Clearly established hx of BPAD type 1 w both manic and depressive episodes -- at this time presenting with what appears to be depressive sx and suicidal ideation with plan. Given concern for harm to self, merits inpatient hospitalization for medication managmeent and stabilization. Given depressive sx may consider initiation of antidepressant agent vs optimization of lithium dosing (need to clarify true trough on 900mg daily). Risk factors: recent loss, depression, hopelessness, communication of suicidal intent, communication of specific suicide plan, chronic psychiatric disorder, history of medication non-adherence, and history of impulsivity Protective factors: future planning, stably domiciled, good relationship with outpatient psychiatrist, access to healthcare/mental health resources, stable housing, support system of family, sense ofobligation to family/children, good insight, and good judgment Overall, the patient is at chronically moderate risk of harm due to non- modifiable risk factors; she is at additional acutely elevated high risk of harm to self/others given active SI with plan. Stephanie Coates meets criteria for inpatient admission due to presence of imminent risk of harm to self or others with modifiable risk factors addressable by psychiatric hospitalization. Recommendations: - Please admit patient VOLUNTARY to [facility] or Main under Dr. Eckert under standard suicide/elopement/assault precautions - voluntary paperwork signed, faxed to patient placement, and placed in chart - Discussed with ED physician and psychiatry international exchange coordinator on-call - While boarding, please continue patient on lithium 900mg qhs; latuda 80mg daily (latuda should betaken with dinner for proper absorption - In case of acute agitation, may consider olanzapine 10 mg PO TID PRN, or olanzapine 10 mg IM TID PRN if severely agitated or refusing PO. Please avoid administering benzodiazepines within 1 hour ofolanzapine administration given risk of respiratory depression. - Please call psychiatry with any questions or to request re-evaluation: [phone] documented in this encounter Nursing Notes * Franco Gordon RN - 08/26/2022 4:42 PM CDT 1642 Patient discharged for home. Discharge information and medications discussed with patient. Follow up instructions reviewed with patient. Belongings returned. No questions at this time. Patient denied SI/HI/AV/VH at this time no obvious distress or behavior concerns at this time. Ambulated off unit. Left for home via mom's car. * Franco Gordon RN - 08/26/2022 8:20 AM CDT 0820- Morning Assessment Pt has been isolative to room and self this morning. Calm and cooperative, pleasant with staff. Medcompliant, attending meals, and was able to participate in morning assessment. Denies SI/HI/AH/VH. Depression and anxiety both rated as 5/10. Daily goal is to leave. A&Ox4. Denies pain. No other complaints made. Will continue with plan of care. * Rudy Mariano RN - 08/26/2022 7:07 AM CDT Patient awake and alert, sitting in dining room eating breakfast. No concerns nor complaints voiced. Plan of care continues. * Rudy Mariano RN - 08/26/2022 12:05 AM CDT Patient awake and alert , requested cheese for a snack. Patient was given cheese and returned back to her room. No other concerns nor complaints voiced. Plan of care continues. * Rudy Mariano RN - 08/25/2022 9:00 PM CDT Reassessment of PRN trazodone was effective. Patient appears asleep, rise and fall of chest noted, respirations even and unlabored. This RN awakened Stephanie to reassess anxiety, prn atarax was partially effective. Patient rates anxiety 4/10. No concerns nor complaints voiced. No acute distress noted. Plan of care continues. * Rudy Mariano RN - 08/25/2022 8:12 PM CDT Assumed care for Stephanie Coates at 1930. Patient sitting in common area on the telephone. A&O x 4, calm and cooperative during assessment. Denies pain, SI/HI and A/V/H at this time. Rates depression 5/10, rates anxiety 5/10. PRN atarax 10mg po administered for anxiety, will reassess in one hour for effectiveness. No acute distress nor aggressive behavior noted. Patient requested trazodone for sleep, prn trazodone 100mg po administered, will reassess in one hour for effectiveness. Isolative and withdrawn, interaction is pleasant. No concerns nor complaints voiced. [place] is placed on left wrist, personal hygiene encouraged. Q 15 minute checks for safety in place. Plan of care continues. * Chanel Steele RN - 08/25/2022 9:00 AM CDT Pt told me she didn't really want to talk because she is tired but she rated her feelings at this time. She rated depression as 6, anxiety as 6. She denies SI/HI and pain. She does not have a/v/h. She did not have good sleep due to many wakeful periods so she wants to sleep now. * Rudy Mariano RN - 08/25/2022 7:09 AM CDT Patient awake and alert eating breakfast. No concerns nor complaints voiced. Plan of care continues. * Rudy Mariano RN - 08/24/2022 9:45 PM CDT Reassessment of prn trazodone and atarax was effective. Patient appears asleep, rise and fall of chest noted, respirations even and unlabored. Plan of care continues. * Rudy Mariano RN - 08/24/2022 8:55 PM CDT Assumed care for Stephanie Coates at 1930. Patient sitting in dining room eating a snack. A&o x 4,calm and cooperative during assessment. Denies pain, SI/HI and A/V/H at this time. Rates depression7/10, rates anxiety 7/10. PRN atarax 10mg po administered, will reassess in one hour for effectiveness. No acute distress nor aggressive behavior noted. Patient requested trazodone for sleep, trazodone 100mg po administered, will reassess in one hour for effectiveness. Isolative and withdrawn at times. No other concerns voiced. [place] is placed on left wrist. Q 15 min checks for safety in place. Plan of care continues. * Jose Conti RN - 08/24/2022 3:36 PM CDT Patient is a new admission. Patient arrived to unit @12:50pm via EMS. Patient arrived ambulatory steve stable condition. Patient is alert and oriented x4. Patient was calm, cooperative, pleasant, and happy on assessment. Patient answered all assessment questions appropriately. When asking patient what brought her here, patient states, suicidal thoughts. When asking patient about recent stressors, patient states, No just struggling with suicidal thoughts. Patient states depression is a 6 on ascale of 0-10. Patient states anxiety is a 7 on a scale of 0-10. Patient denies suicidal/homicidal ideations. Patient denies A/V/H. Patient denies pain. Patient does not recall her last bowel movement but does state it was this week. Patient states she feels hopeless, helpless, and worthless. Patient denies wishing to be or any suicidal thoughts on admission. Patient denies having access to any weapons at home or any legal charges pending against her. Patient states she is on a regular and denies any recent weight loss. Patient denies abuse, violence, and being in a relationship. Patientdoes states she has a history of trauma. Her trauma includes losing friends to suicide. Patient denies drinking alcohol or doing any other drugs. Patient denies smoking cigarettes but does state she vapes. Patient states she has difficulty falling asleep. Patient state she sleeps about 8 hours cristal good night. Patient states Nothing really makes me mad or upset. Patient states she will tell us if she is triggered. Patient state sleep helps her to calm down. Patient states she has a supportsystem. Support system includes: mom, dad, and therapist. Patient strengths includes: coping skills (going to therapy), support, and being optimistic for change. Patient states she lives with back and forth between her mom and dad. Patient's belongings/clothing are in BIN #6. Valuables (cell phone) are locked downstairs with security. Dr. Deepika Valetnine notified. New orders are in. Refer to orders and orders tab. Dr. Luis Huang internal medicine notified. Patient has been calm, cooperative, and compliant since admission. Patient is in room lying down at this time resting. Patient is calm, cooperative, and compliant. Patient voices no complaints or concerns. Staff remains nearby monitoring making safety rounds every 15 minutes to maintain patient safety. No acute distress is observed. Will continue to monitor. [place] is on and paired at this time. documented in this encounter ED Notes * Jimmy Ruiz MD - 08/23/2022 2:57 PM CDT HPI Chief Complaint Patient presents with Suicidal Ideation The patient has history of bipolar disorder, and reports that she has been having 2 weeks of worsening depression, and today she was having suicidal ideation, thinking about overdosing on medication or hanging herself. She told her father who brought her to the emergency department. 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 She continues totake her lithium and Latuda for bipolar disorder, stop taking Strattera which was recently prescribed because she did not think it was helping her. Patient denies auditory hallucinations, homicidal ideation. Patient History: Patient Active Problem List Diagnosis Date Noted Bipolar disorder, current episode depressed, mild or moderate severity, unspecified ([facility]) 03/23/2022 Bipolar affective disorder type 1, current episode manic, severe, with psychotic symptoms 02/23/2022 Cannabis dependence ([facility]) 02/02/2022 Routine general medical examination at [facility] 02/02/2022 Bipolar affective disorder, current episode manic with psychotic symptoms ([facility]) ([facility]) 02/01/2022 Past Medical History: Diagnosis Date Bipolar 1 disorder ([facility]) History reviewed. No pertinent surgical history. History reviewed. No pertinent family history. Social History Tobacco Use Smoking status: Every Day Types: Vaping Start date: 03/28/2017 Last attempt to quit: 03/23/2022 Years since quittin.4 Smokeless tobacco: None Vaping Use Vaping Use: Some days Substances: Nicotine Substance and Sexual Activity Alcohol use: None Drug use: None Sexual activity: None Social History Social History Narrative Not on file Review of Systems Review of Systems Constitutional: Negative for chills and fever. HENT: Negative for ear pain and sore throat. Eyes: Negative for pain and visual disturbance. Respiratory: Negative for cough and shortness of breath. Cardiovascular: Negative for chest pain and palpitations. Gastrointestinal: Negative for abdominal pain and vomiting. Genitourinary: Negative for dysuria and hematuria. Musculoskeletal: Negative for arthralgias and back pain. Skin: Negative for color change and rash. Neurological: Negative for seizures and syncope. Psychiatric/Behavioral: Positive for decreased concentration, dysphoric mood, sleep disturbance andsuicidal ideas. All other systems reviewed and are negative. Physical Exam ED Triage Vitals Temp Pulse Resp BP SpO2 08/23/22 1442 08/23/22 1442 08/23/22 1442 08/23/22 1442 08/23/22 1442 36.6 ??C (97.9 ??F) 103 16 129/80 100 % Temp src Heart Rate Source Patient Position BP Location FiO2 (%) 08/24/22 1305 08/24/22 0835 08/24/22 0835 08/24/22 0835 -- Oral Monitor Sitting Right arm Height Height Method Weight Weight Method 08/23/22 1440 08/23/22 1440 08/23/22 1440 08/24/22 1305 1.626 m (5' 4 ) Stated 61.2 kg (135 lb) Standing scale Physical Exam Vitals and nursing note reviewed. Constitutional: General: She is not in acute distress. Appearance: She is well-developed. HENT: Head: Normocephalic and atraumatic. Eyes: Conjunctiva/sclera: Conjunctivae normal. Cardiovascular: Rate and Rhythm: Normal rate and regular rhythm. Heart sounds: No murmur heard. Pulmonary: Effort: Pulmonary effort is normal. No respiratory distress. Breath sounds: Normal breath sounds. Abdominal: Palpations: Abdomen is soft. Tenderness: There is no abdominal tenderness. Musculoskeletal: General: No swelling. Cervical back: Neck supple. Skin: General: Skin is warm and dry. Capillary Refill: Capillary refill takes less than 2 seconds. Neurological: Mental Status: She is alert. Psychiatric: Mood and Affect: Mood normal. MDM Medical Decision Making Amount and/or Complexity of Data Reviewed Labs: ordered. Risk Prescription drug management. Decision regarding hospitalization. Patient with history of bipolar disorder, previous admission for eladio in January of last year. Patient reports she is not had a good mood, feels low- level depression since that last admission but was doing relatively well when seen by Psychiatry last month. Patient now with 2 weeks of worsening depression, with suicidal ideation with a plan. Plan to check labs, consult Psychiatry, anticipate admission. Attending Summary of Care ED Course as of 09/01/22 1730 Time: 08/23 2228 Comment: Assumed care at 23:00 H/O bipolar with worsening depression / SI with thoughts of OD on medications vs hanging. Told her father who brought her in. Seen by psychiatry. Plan: Voluntary Admission to first available either [facility] or Main By: Bettie Mejia MD Time: 08/24 653 Comment: Signout. [place] bipolar, presents with suicidal ideation. She is voluntarily admitted to [facility]. By: Eliot Rubio MD Depression, unspecified depression type Suicidal ideation Jimmy Ruiz MD 08/23/22 1500 Jimmy Ruiz MD 08/25/22 0808 Jimmy Ruiz MD 09/01/22 1730 * Jocelyn Noriega RN - 08/23/2022 2:39 PM CDT Patient arrives with worsening suicidal thoughts for the past few weeks. Denies HI or AH/VH. documented in this encounter Miscellaneous Notes * Hospital Course - Chelo Kimble - 08/26/2022 1:50 PM CDT Hospital Course: Ms. Coates is a 22 year old female with a past medical history of Bipolar Disorder (diagnosed 2021) admitted as a voluntary patient to [facility] for suicidal ideation in the setting of increased depressive symptoms (low mood, feelings of guilt, difficulty concentrating, social isolation, poor self care, SI) for the past several weeks. Her outpatient regimen of [place] 900mg qhs and Latuda 80mg with evening meal was continued during the admission. She was started on Prozac 10mg daily for depressive symptoms which was well tolerated and she reported no side effects during the admission. She often stayed isolated within her room but occasionally interacted with group programing and no behavioral issues were noted. PRNs included: Hydroxyzine for anxiety (2 doses: 08/24, 08/25), Nicorette gum for nicotine cravings(3 doses: 08/24, 08/25, 08/26), Trazodone for sleep (2 doses: 08/24, 08/25). Ondate of discharge, she denied suicidal ideation, thoughts of self-harm, auditory or visual hallucina tions, or homicidal ideation. She has an appointment scheduled with her outpatient psychiatrist on 09/03 per mother and will continue previous outpatient DBT. Active Issues Requiring Follow-up: Motivational interviewing, monitor for symptoms of eladio or side effects from Prozac 10mg daily, lithium level repeat Test Results Pending at Discharge: none Operative Procedures Performed: none Other Procedures: none Pertinent Test Results: Urine toxicology negative, TSH on 08/23 1.20, lithium level was 0.4 on 08/23 * Plan of Care - Franco Gordon RN - 08/26/2022 9:44 AM CDT Goals: Clinical Goals for the Shift: to leave Problem: Lack of Knowledge: Goal: Ability to make informed decisions regarding treatment will improve Outcome: Progressing Note: Stephanie's ability to make informed decisions regarding treatment will improve by time of discharge Problem: Coping: Goal: Ability to cope will improve Outcome: Progressing Note: Stephanie's ability to cope will improve by time of discharge Problem: Health Behavior: Goal: Decreased thoughts of self harm Outcome: Progressing Note: Stephanie will have decreased thoughts of self harm by time of discharge Problem: Self-Concept: Goal: Ability to verbalize positive feelings about self will improve Outcome: Progressing Note: Stephanie's ability to verbalize positive feelings about self will improve by time of discharge Problem: Healthy functioning Goal: Demonstrate healthy communication behaviors Outcome: Progressing Note: Stephanie will demonstrate healthy communication behaviors by time of discharge * Plan of Care - Rudy Mariano RN - 08/25/2022 9:03 PM CDT Problem: Lack of Knowledge: Goal: Ability to make informed decisions regarding treatment will improve Outcome: Progressing Problem: Health Behavior: Goal: Decreased thoughts of self harm Outcome: Progressing Problem: Healthy functioning Goal: Demonstrate healthy communication behaviors Outcome: Progressing * Plan of Care - Chanel Steele RN - 08/25/2022 12:19 PM CDT Goals: Clinical Goals for the Shift: denied having a goal Summary: Problem: Lack of Knowledge: Goal: Ability to make informed decisions regarding treatment will improve Outcome: Progressing Problem: Coping: Goal: Ability to cope will improve Outcome: Progressing Problem: Health Behavior: Goal: Decreased thoughts of self harm Outcome: Progressing Problem: Self-Concept: Goal: Ability to disclose and discuss suicidal ideas will improve Outcome: Progressing Goal: Ability to verbalize positive feelings about self will improve Outcome: Progressing Problem: Healthy functioning Goal: Demonstrate healthy communication behaviors Outcome: Progressing * Medical Student - Chelo Kimble - 08/25/2022 11:14 AM CDT Inpatient Psychiatric Intake Assessment This admission was staffed with on 08/25/2022 at [facility]. CURRENT DIAGNOSES: Principal Problem: Bipolar Disorder, acute depressive episode with SI REASON FOR INPATIENT ADMISSION: Suicidal Ideation INITIAL CERTIFICATION: The patient requires active inpatient [...] at this time due to: Patient is suicidal. It is my assessment that the services/treatments are reasonably expected to improve the patient's condition or providediagnostic clarity. IDENTIFYING INFORMATION: This is the 4th psychiatric admission for Ms. Stephanie Coates, a 22 y.o., single, unemployed, domiciled female with a history of bipolar disorder who was brought to the hospital by self for suicidal ideation in the setting of depressed mood. ADMISSION STATUS: Voluntary GUARDIANSHIP: No POWER OF OFFICE RUNNER ([place] ONLY): NA SOURCE(S) OF INFORMATION: Patient EHR, includes ED psychiatric consultation note CHIEF COMPLAINT: I'm having suicidal thoughts. HISTORY OF PRESENT ILLNESS: Ms. Stephanie Coates is a 22yo female who was previously diagnosed with Bipolar disorder after presenting during an acute manic episode in January 2022. Her Bipolar disorder is managed outpatient by Dr. Traore with Latuda 80mg qhs and [place] 900mg qhs. She also attends DBT regularly. She states that for the past several weeks she has been experiencing low mood, loss of interest in activities, difficulty concentrating, feelings of guilt about everything , and suicidal ideation.Her SI was previously documented to be active with thoughts of overdosing via medication, however during our interview she described her thoughts as more consistent with being better off which wax and wane. She describes her appetite as normal or potentially increased and states her sleep has been good. She states that no triggering event occurred to precipitate these symptoms, however, she believes it is related to her anxiety and guilt from remembering her actions from her manic episode in Jan. She tearfully stated that she is extremely fearful of becoming manic again and that she is frustrated that she is following her medical regimen and still not feeling like her normal self . While she is voluntarily admitted, she states she would like to go home as she is reminded of her previous admissions for eladio. Of note, she emphasized that she takes her Latuda with a meal more than 350 calories and follows her medical regimen closely. She has gained 20 pounds in the past 5 months. She has not used cannabis since January 2022. PAST MEDICAL HISTORY: Past Medical History: Diagnosis Date Bipolar 1 disorder (HCC) History reviewed. No pertinent surgical history. ALLERGIES: Allergies Allergen Reactions Sulfa (Sulfonamide Antibiotics) Hives Sulfamethoxazole-Trimethoprim Itching and Rash MEDICATIONS: Facility-Administered Medications Prior to Admission Medication Dose Route Frequency Provider Last Rate Last Admin ARIPiprazole lauroxil (ARISTADA) intramuscular syringe 882 mg 882 mg intramuscular every 4 weeks Bettie Traore MD 882 mg at 04/02/22 1607 Medications Prior to Admission Medication Sig Dispense Refill Last Dose atomoxetine (STRATTERA) 40 mg capsule Take 1 [...] nightly as needed for sleep30 tablet 1 Non-adherent to the following medications: n/a Current Facility-Administered Medications Medication Dose Route Frequency Provider Last Rate Last Admin hydrOXYzine (ATARAX) tablet 10 mg 10 mg oral Q4H PRN Naomi Cabral MD 10 mg at 08/24/222053 lithium ER (ESKALITH) extended release tablet 900 mg 900 mg oral Nightly Naomi Cabral MD900 mg at 08/24/221819 lurasidone (LATUDA) tablet 80 mg 80 mg oral Daily with dinner Simi Rodriguez MD 80 mg at 08/24/22 182 nicotine polacrilex (NICORETTE) gum 2 mg 2 mg mouth/throat Q2H PRN Simi Rodriguez MD 2 mg at 08/24/22 183 traZODone (DESYREL) tablet 100 mg 100 mg oral Nightly Naomi Jean Baptiste MD 100 mg at 08/24/222053 FAMILY HISTORY: History reviewed. No pertinent family history. SOCIAL HISTORY: Education: Completed high school, some college but not completed Occupation: unemployed Marital Status: single Housing: Living with mom and maternal GM Substance Use: Alcohol: none Withdrawal/DT Hx: No Alcohol Withdrawal History Other Substances: Vaping with nicotine Abuse History: none Behavioral Issues: none Violence History: not asked Legal History: none Access to firearms: no ASSETS: supportive relationships (family), history of help-seeking, access to healthcare/mental health resources, good insight, and good judgment REVIEW OF SYSTEMS: 14 point review of symptoms negative except for noted in HPI above. PHYSICAL EXAM: Vitals: 08/25/22 0700 BP: 114/75 Pulse: 91 Resp: 20 Temp: 36.8 ??C (98.3 ??F) SpO2: 99% No intake/output data recorded. No intake/output data recorded. BP 114/75 (BP Location: Left arm) Pulse 91 Temp 36.8 ??C (98.3 ??F) (Oral) Resp 20 Ht 162.6cm (5' 4 ) Wt 68 kg (150 lb) SpO2 99% BMI 25.75 kg/m?? Physical Exam MENTAL STATUS EXAM AT ADMISSION: 1. General appearance and behavior: Slightly disheveled, tearful, glancing around room frequently bordering on hypervigilance 2. Speech: Normal rate & rhythm, spontaneous, no latency 3. Flow of thought: linear, goal directed 4. Content of thought: +suicidal ideation, no AVH, no HI 5. Mood: Fine, I just want to stop feeling this way. 6. Affect: dysthymic, mood-congruent, tearful 7. Insight: good 8. Judgement: good 9. Sensorium: Alert and oriented x3 LABORATORY/DIAGNOSTIC DATA REVIEW: [place] level Collection Time: 08/23/22 3:03 PM Result Value Ref Range [place] 0.4 (L) 0.6 - 1.2 mmol/L Drugs of Abuse Screen, Urine without Confirmation Collection Time: 08/23/22 2:58 PM Result Value Ref Range Amphetamine, ur [...] Not Detected CutOff 25 ng/mL Urine Creatinine 182 mg/dL Ethanol Collection Time: 08/23/22 2:58 PM Result Value Ref Range Ethanol <10 <=10 mg/dL Additional Diagnostic/Procedure Review: I have reviewed her bloodwork. My findings are: Low lithium level, no substances detected in urine.Negative for elevated ethanol levels. PRIMARY DIAGNOSIS/REASON FOR INPATIENT ADMISSION: Bipolar Disorder, acute depressive episode Ms. Stephanie Coates is a 22 year old female with a history of bipolar disorder who is voluntarily admitted for suicidal ideation in the setting of depressed mood. Ms. Coates's symptoms of low mood, decreased concentration, social isolation, feelings of guilt, and suicidal ideation are consistent with a depressive episode in the setting of previously diagnosed Bipolar disorder. Her previous symptoms of eladio are managed currently on [place] 900mg & [id number] without reoccurrence. She is also is experiencing significant anxiety related to being hospitalized for her previous manic episode. It is likely that her previous association of her manic episode with inpatient psychiatric care is worsening these symptoms of anxiety. She would benefit from theaddition of Fluoxetine 10mg daily to her current medication regimen as well as mindful, trauma-informed interactions from staff emphasizing her progress. Encourage participation in group therapy. PRNfor increased anxiety with hydroxyzine 10mg. Plan: -Continue 900mg [place], repeat trough level. -Continue Latuda 80mg with dinner -Start Prozac 10mg daily. Monitor for symptoms of eladio. -PRN Hydroxyzine for anxiety Code Status: Full Code Precautions: Suicide Diet: Adult Diet Regular; Send on Disposables, Deliver tray to nursing, Rivet Sorter check DVT Prophylaxis: None; ambulating TID+ Chelo Kimble Medical Student Psychiatry Clerkship 08/25/2022 11:15 AM Cosigned by Simi Rodriguez MD at 08/27/2022 11:12 AM CDT * Psy Treatment Planning - Simi Rodriguez MD - 08/25/2022 9:47 AM CDT Inpatient Psychiatric Initial Treatment Planning Note Date: 08/25/2022 Time: 9:47 AM Patient Name: Stephanie Coates Date of : 2000 Sex: Female Room/Bed: [id number] Payor Info: Self-Pay Admission Date: 08/24/22 Admission Time: 1300 Problem List: Patient Active Problem List Diagnosis Date Noted Depression, unspecified depression type 08/23/2022 Bipolar disorder, current episode depressed, mild or moderate severity, unspecified (HCC) 03/23/2022 Bipolar affective disorder type 1, current episode manic, severe, with psychotic symptoms 02/23/2022 Cannabis dependence (HCC) 02/02/2022 Routine general medical examination at a health care facility 02/02/2022 Bipolar affective disorder, current episode manic with psychotic symptoms ([facility]/HCC) (HCC) 02/01/2022 Team Members Present: Physician Snow Technician: Simi Rodriguez MD Nursing Snow Technician: Other (comment) (Bri Ellsworth, MSN, RN) Social Work Snow Technician: Jamila Ochoa MSW Activity Therapy Snow Technician: Jamila Mcknight CTRS Pharmacy Snow Technician: Other (comment) (Leobardo Silva, AnjaliD) Patient/Family Present: Patient Present: No Patient's Family Present: No Strengths/Assets/Barriers/Behaviors/Symptoms: Strengths (Must Choose Two): Access to housing/residential stability, Interpersonal relationships and supports,i.e., family, friends, peers, Managing surrounding demands and opportunities Patient Assets: Education, Involved outpatient professional, Supportive family, Supportive friends,Therapist, Psychiatrist, Access to services, Home, Use of Supports Patient Barriers : Negative coping skills Exhibited Behaviors/Symptoms : Depressed Family Perspective for Hospitalization: Family Perspective: Pt gave verbal permission to contact collateral. Support System Contact and Participation: Patient/Significant other participation : Pt particpated actively in assessment. Goals: Patient Stated Goals: Try something new. Short term goals: Eliminate thoughts of SI and engage in unot programming. Life Skills Coach Goals: Unknown Care Plans: Multi-Disciplinary Problems Active Problems Problem: Lack of Knowledge: Start Date: 08/24/22 Goal Start Date End Date Ability to make informed decisions regarding treatment will improve 08/24/22 -- Goal Intervention Frequency Start Date End Date Assess cognitive ability -- 08/24/22 -- Problem: Coping: Start Date: 08/24/22 Goal Start Date End Date Ability to cope will improve 08/24/22 -- Goal Intervention Frequency Start Date End Date Identify effective coping behavior -- 08/24/22 -- Goal Intervention Frequency Start Date End Date Provide emotional support -- 08/24/22 -- Problem: Health Behavior: Start Date: 08/24/22 Goal Start Date End Date Decreased thoughts of self harm 08/24/22 -- Goal Intervention Frequency Start Date End Date Perform therapeutic communication skills to develop a trusting relationship -- 08/24/22 -- Goal Intervention Frequency Start Date End Date Encourage conversation regarding loss -- 08/24/22 -- Problem: Self-Concept: Start Date: 08/24/22 Goal Start Date End Date Ability to disclose and discuss suicidal ideas will improve 08/24/22 -- Goal Intervention Frequency Start Date End Date Assess anxiety level -- 08/24/22 -- Goal Intervention Frequency Start Date End Date Implement depression screening -- 08/24/22 -- Goal Intervention Frequency Start Date End Date Assess history of suicide attempts -- 08/24/22 -- Goal Intervention Frequency Start Date End Date Assess psychological status -- 08/24/22 -- Goal Start Date End Date Ability to verbalize positive feelings about self will improve 08/24/22 -- Goal Intervention Frequency Start Date End Date Explore useful positive self-talk -- 08/24/22 -- Goal Intervention Frequency Start Date End Date Encourage verbalization of feelings -- 08/24/22 -- Problem: Treatment compliance Start Date: -- Goal Start Date End Date Build healthy support system -- -- Goal Intervention Frequency Start Date End Date Provide information regarding community resources and support services -- -- -- Problem: Healthy functioning Start Date: -- Goal Start Date End Date Demonstrate healthy communication behaviors -- -- Goal Intervention Frequency Start Date End Date Provide appropriate means for communication -- -- -- Goal Intervention Frequency Start Date End Date Provide education on healthy communication skills -- -- -- Patient's Response to Treatment Plan: Patient unable to participate Care Plan Partner's Response to Treatment Plan: Care Plan Partner unable to participate Primary Diagnosis: Depression, unspecified depression type Physician Documentation: Projected Discharge Date: 08/27/2022 Plan: voluntary admission. Continue latuda 80mg and give with evening meal. Continue lithium 900mg qhs. Add prozac 10mg every day. PRNs for comfort and safety. Sw and internal medicine consultation. Encourage active participation in psychotherapeutic groups and treatment planning. Half-Way Goals: stable housing, stable employment, continued sobriety, medication compliance, management in the outpatient setting Signatures: DAKOTA Diaz, RN * Plan of Care - Rudy Mariano RN - 08/24/2022 8:27 PM CDT Problem: Lack of Knowledge: Goal: Ability to make informed decisions regarding treatment will improve Outcome: Progressing Problem: Health Behavior: Goal: Decreased thoughts of self harm Outcome: Progressing * Initial Assessments - Sugar Vaughan MSW - 08/24/2022 2:47 PM CDT Psychiatry Social Work Assessment Clinical Dx: Depression, unspecified depression type Past Psychiatric History: Past Psychiatric History Previous Self Harm/Suicidal Attempts: No Patient currently seeing an outpatient psychiatrist? : No Current outpatient community case manager? : No Mental Health Onset: Per chart, 2020 Previous Psychiatric Admission: Yes (Comment) Dates of previous psychiatric admissions: 03/22-, 02/23-02/27/22 and 02/01- Last appointment with psychiatric provider? 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 Education Level : Vocational Training, High School Diploma Insurance : Self-pay Medication : Pt qualifies for medication assistance Pharmacy Information : [facility] in [place], [place] General Functioning: Pt is able to communicate needs and complete ADL's independently. Current Transportation: Own vehicle Use of time: Phone. Opportunity to Socialize: Pt has opportunity to socialize. (08/24/221437) Reason for Current Hospitalization: Precipitating Event: Patient arrives with worsening suicidal thoughts for the past few weeks. Legal History: Legal History Legal Information : No legal issues (08/24/221437) Support Systems and Spirituality: Support Systems and Spirituality Support System: Parent Patient/Significant other participation : Pt particpated actively in assessment. Support Contact Name/Number: Colten [phone] and mother [phone] Family Perspective: Pt gave verbal permission to contact collateral. Past Support System : Parents. Parents : Living. Children : None Siblings: Pt reports one brother/ Do you have a Anabaptist Preference or Affiliation?: No Are there any Anabaptist Practices that are important to maintain while admitted?: No Referral to Punch Press Operator : No Hope and Strength during Difficult Times: God Do you have Cultural Factors that are important to you?: No Family History of Mental Illness: Unknown Sexual Orientation : Heterosexual Born and Raised: [place], [place] Description of Childhood: Stable. History of physical abuse? : No History of physically abusing others? : No History of sexual abuse?: No History of sexually abusing others? : No History of Mental/Emotional Abuse? : No (08/24/221437) Strengths, Assets, Liabilities and Stressors: Strengths, Assets, Liabilities, and Stressors Strengths (Must Choose Two): Access to housing/residential stability, Interpersonal relationships and supports,i.e., family, friends, peers, Managing surrounding demands and opportunities Patient Assets: Education, Involved outpatient professional, Supportive family, Supportive friends,Therapist, Psychiatrist, Access to services, Home, Use of Supports Does Pt have access to Employee Assistance Program: No Patient Barriers : Negative coping skills Current Stressors: No income, Coping skills (08/24/221437) Social Determinants of Health Tobacco Use: High Risk (08/23/2022) Patient History Smoking Tobacco Use: Every Day Smokeless Tobacco Use: Unknown Passive Exposure: Not on file Alcohol Use: Not At Risk (02/23/2022) AUDIT-C Frequency of Alcohol Consumption: Monthly or less Average Number of Drinks: 1 or 2 Frequency of Binge Drinking: Never Financial Resource Strain: Low Risk (08/24/2022) Overall Financial Resource Strain (CARDIA) Difficulty of Paying Living Expenses: Not very hard Food Insecurity: No Food Insecurity (02/23/2022) Hunger Vital Sign Worried About Running Out of Food in the Last Year: Never true Ran Out of Food in the Last Year: Never true Transportation Needs: No Transportation Needs (08/24/2022) PRAPARE - Transportation Lack of Transportation (Medical): No Lack of Transportation (Non-Medical): No Physical Activity: Inactive (08/24/2022) Exercise Vital Sign Days of Exercise per Week: 0 days Minutes of Exercise per Session: 0 min Stress: Stress Concern Present (08/24/2022) [employer] [place] [employer] - Occupational Stress Questionnaire Feeling of Stress : Rather much Social Connections: Socially Isolated (02/23/2022) Social Connection and Isolation Panel [NHANES] Frequency of Communication with Friends and Family: More than three times a week Frequency of Social Gatherings with Friends and Family: More than three times a week Attends Anabaptist Services: Never Active Member of Clubs or Organizations: No Attends Club or Organization Meetings: Never Marital Status: Never Intimate Partner Violence: Not At Risk (02/23/2022) Humiliation, Afraid, Rape, and Kick questionnaire Fear of Current or Ex-Partner: No Emotionally Abused: No Physically Abused: No Sexually Abused: No Depression: Not at risk (02/23/2022) PHQ-2 PHQ-2 Score: 1 Housing Stability: Low Risk (02/23/2022) Housing Stability Vital Sign Unable to Pay for Housing in the Last Year: No Number of Places Lived in the Last Year: 1 Unstable Housing in the Last Year: No Substance Abuse Details: E-Cigarette/Vaping Questions Responses E-cigarette/Vaping Use Current Some Day User E-Cigarette/Vaping Substances Questions Responses Nicotine Yes History of Substance Abuse Treatment: Pt denied. Result of Treatment: N.A Family History of Substance Abuse: Pt denied Chemical Dependency Insight: UDS negative. Depression Screening Pt denied. Risk to Self and Others: Risk to Self and Others Violence risk to self in past 6 months? : No Self Harm/Suicidal Ideation Plan: No Previous Self Harm/Suicidal Attempts: No Violence risk to others in past 6 months? : No Any lifetime risk of violence to others? : No Current Plans to Harm Another: No (08/24/221437) Affect and Mood: Affect/Mood Affect: Calm Mood: Content (08/24/221435) Hopelessness, Helpfulness, Worthlessness: Hopelessness Helplessness Worthlessness Feelings of Hopelessness: No Feelings of Helplessness: No Feelings of Worthlessness: No (08/24/221435) Thought Content: Thought Content Delusions: No delusions Hallucinations: None Ambivalence: Yes (08/24/221435) Behavior: Behavior Eye Contact: Good Exhibited Behaviors/Symptoms : Calm, Friendly (08/24/221435) Behavioral Management: Behavioral Management Do you now have or have you had any of the these? : Anxiety Signs of Anger, Frustration, or Fright: Tell us What upsets you or makes you feel anxious or frightened? : None. Methods to Calm Down: No preference (08/24/221435) Past Psych Hx: Past Psychiatric History Previous Self Harm/Suicidal Attempts: No Patient currently seeing an outpatient psychiatrist? : No Current outpatient community case manager? : No Mental Health Onset: Per chart, 2020 Previous Psychiatric Admission: Yes (Comment) Dates of previous psychiatric admissions: 03/22-, 02/23-02/27/22 and 02/01- Last appointment with psychiatric provider? : Last (08/24/221435) Problem/Goals: Problems/Goals Problems Identified by Social Work: Si and medication adjustments Short term goals: Eliminate thoughts of SI and engage in unot programming. Patient Stated Goals: Try something new. Half-Way Goals: Unknown Social Work Plan/Intervention: Provide ongoing assessment, offer groups and assist with discharge planning. (08/24/221435) Discharge Planning: Discharge Planning Support System: Parent Community Resources: Mental health Home Care Services: No Patient expects to be discharged to:: Private residence Anticipated discharge level of care: Private residence Pt/Family agrees with Anticipated Level of Care: No Does the patient need discharge transport arranged?: No Has discharge transport been arranged?: No Details of Transportation: Parents Medication Management: Self-pay Can Patient Afford Co-Payments: Yes Co-Payment Comment: Self-pay Medication Assistance: Pt qualifies for medication assistances Psychiatric Follow Up: [facility] and [facility] therapy. (08/24/22 1435) Dialysis: Collaboration: Socialization Socialization : Family Collaboration Interview/Collaboartion with : Patient, Physician Discussed plan and provided support and counseling to: Patient, Physician Plan agreed upon by : Patient, Physician Disagreed with plan: No one (08/24/22 1436) Preferred Pharmacy: [place] [id number] [facility] [address] [facility] [address] [id number] - [place], [place] - [address] [facility] [id number] Impressions: Stephanie Coates is a 22 y.o. single, heterosexual, domiciled with family, unemployed, female that admitted voluntarily to [facility] for SI. Pt participated actively in assessment and reports family as support. Pt reports she does have outpatient follow-up through the [facility] and [facility]BT therapy. Pt reports her last session was last . Pt gave permission to contact mother and father throughout course and denied SI, HI, aH and VH. Pt has a outpatient appointment scheduled on September 03 at 3:15 p.m. Recommendations: Pt would benefit from continued monitoring, medicine adjustment and attending groups. SW will provide support as needed and will encourage participation in unit programming. SW will coordinate treatment and discharge planning with treatment team. Sugar Vaughan LMSW * Plan of Care - Jose Conti RN - 08/24/2022 1:49 PM CDT PATIENT IS A NEW ADMISSION Problem: Lack of Knowledge: Goal: Ability to make informed decisions regarding treatment will improve Outcome: Progressing Problem: Coping: Goal: Ability to cope will improve Note: Stephanie will verbalize healthy coping skills by 08/30/2022. Problem: Health Behavior: Goal: Decreased thoughts of self harm Outcome: Progressing Problem: Self-Concept: Goal: Ability to disclose and discuss suicidal ideas will improve Outcome: Progressing Goal: Ability to verbalize positive feelings about self will improve Outcome: Progressing Problem: Treatment compliance Goal: Build healthy support system Outcome: Progressing * ED Re-evaluation Note - Eliot Rubio MD - 08/24/2022 8:00 AM CDT ED Re-evaluation ED Boarder Note History:Patient with PMH bipolar, presents with suicidal ideation. Exam: Pt is sitting comfortably in recliner in the P. No distress. Assessment and Plan: She is voluntarily admitted to psychiatry at [facility] or [facility]. Eliot Rubio MD 08/30/222053 * Plan of Care - Gen Sheriff RN - 08/24/2022 1:36 AM CDT Case Management note: community planner reviewed chart and patient continues to meet hospital level of care at this time. Please contact community planner or ED Manager In Training for questions or assistance with potential throughput alternatives. * ED Re-evaluation Note - Naomi Cabral MD - 08/23/2022 3:30 PM CDT ED Re-evaluation Signed out by the off-going provider. Patient with a history of bipolar disorder, followed by psychiatry. Presenting here with suicidal ideation. Pending psychiatry consult. Patient seen by psychiatry and agreed to voluntary admission to either [facility] or [facility]. Home medications restarted per psychiatry discussion. [place] level subtherapeutic, but patient has missed a dose. Naomi Cabral MD 08/23/221742 documented in this encounter Plan of Treatment Not on file documented as of this encounter Procedures Procedure Name Priority Date/Time Associated Diagnosis Comments LITHIUM LEVEL STAT 08/23/2022 3:03 PM CDT POCT HCG, URINE Routine 08/23/2022 3:02 PM CDT EGFR STAT 08/23/2022 2:58 PM CDT DIFFERENTIAL AUTO STAT 08/23/2022 2:5 8 PM CDT THYROID FUNCTION CASCADE STAT 08/23/2022 2:58 PM CDT URINALYSIS AND REFLEX TO MICROSCOPIC STAT 08/23/2022 2:58 PM CDT CBC WITH AUTO DIFFERENTIAL STAT 08/23/2022 2:58 PM CDT DRUGS OF ABUSE SCREEN, URINE WITHOUT CONFIRMATION STAT 08/23/2022 2:58 PM CDT URINALYSIS, MICROSCOPIC ONLY STAT 08/23/2022 2:58 PM CDT ETHANOL STAT 08/23/2022 2:58 PM CDT COMPREHENSIVE METABOLIC PANEL STAT 08/23/2022 2:58 PM CDT documented in this encounter Results * (ABNORMAL) [place] level (08/23/2022 3:03 PM CDT) [place] 0.4(L) 0.6 - 1.2 mmol/L [facility] Blood 08/23/2022 3:03 PM CDT 08/23/2022 3:37 PM CDT us Jimmy Ruiz MD LAB BLOOD ORDERABLES Margie l Result [facility] [place] [address] * POCT hCG, urine (08/23/2022 3:02 PM CDT) HCG, ur, POC Negative Lot Number [id number] QC Backgroud Clear Acceptable QC Control Line Acceptable Urine 08/23/2022 3:02 PM CDT Jimmy Ruiz MD POINT OF CARE TEST ORDERA BLES Final Result * eGFR (08/23/2022 2:58 PM CDT) Pathologist [facility] eGFR >90 90 - 130 mL/min/1. 73 m2 [facility] Comment: Interpretive Data Reference Interval [...] interpretive data was last reviewed 2021. Blood 08/23/2022 2:58 PM CDT 08/23/2022 3:37 PM CDT Jimmy Ruiz MD LAB BLOOD ORDERABLES Marige l Result Performing Organization Address [facility] de Phone Number [facility] Department [place] [address] * (ABNORMAL) Urinalysis, microscopic only (08/23/2022 2:58 PM CDT) Pathologist [facility] WBC, ur 11-20(A) 0 - 5 /HPF [facility] RBC, ur 0-2 0 - 2 /HPF [facility] Epithelial cells, squamous, ur 1-5 0 - 5 /HPF [facility] Bacteria, ur 3+(A) [facility] Mucous, ur Present(A) [facility] Amorphous crystals, ur 1+(A) [facility] Urine 08/23/2022 2:58 PM CDT 08/23/2022 3:02 PM CDT Jimmy Ruiz MD LAB URINE ORDERABLES Margie l Result Performing Organization Address [facility] de Phone Number [facility] [place] [address] * Differential, auto (08/23/2022 2:58 PM CDT) Pathologist [facility] Neutrophil abs 6.3 1.7 - 6.5 K/cumm [facility] Imm gran abs 0.0 0.0 - 0.1 K/cumm [facility] Lymphocyte abs 2.7 0.8 - 3.3 K/cumm [facility] Monocyte abs 0.8 0.2 - 0.8 K/cumm [facility] Eosinophil abs 0.2 0.0 - 0.5 K/cumm [facility] Basophil abs 0.1 0.0 - 0.1 K/cumm [facility] Neutrophil pct 62.9 % [facility] Comment: Interpretive Data Percent cell count reference ranges are not reported, since discordance with absolute values may lead to misinterpretation of CBC data. Current Interpretive Data was last revised on 2017. Imm gran pct 0.4 % [facility] Comment: Interpretive Data Percent cell count reference ranges are not reported, since discordance with absolute values may lead to misinterpretation of CBC data. Current Interpretive Data was last revised on 2017. Lymphocyte pct 26.4 % [facility] Comment: Interpretive Data Percent cell count reference ranges are not reported, since discordance with absolute values may lead to misinterpretation of CBC data. Current Interpretive Data was last revised on 2017. Monocyte pct 7.4 % [facility] Comment: Interpretive Data Percent cell count reference ranges are not reported, since discordance with absolute values may lead to misinterpretation of CBC data. Current Interpretive Data was last revised on 2017. Eosinophil pct 2.3 % [facility] Comment: Interpretive Data Percent cell count reference ranges are not reported, since discordance with absolute values may lead to misinterpretation of CBC data. Current Interpretive Data was last revised on 2017. Basophil pct 0.6 % [facility] Comment: Interpretive Data Percent cell count reference ranges are not reported, since discordance with absolute values may lead to misinterpretation of CBC data. Current Interpretive Data was last revised on 2017. Blood 08/23/2022 2:58 PM CDT 08/23/2022 3:37 PM CDT Jimmy uRiz MD LAB BLOOD ORDERABLES Margie hendrix Result [facility] [place] [address] * (ABNORMAL) Urinalysis reflex to microscopic (08/23/2022 2:58 PM CDT) Color, ur Yellow Yellow [facility] Clarity, ur Cloudy(A) Clear [facility] Specific gravity, ur 1.024 1.003 - 1.030 [facility] pH, urine 6.5 [facility] Protein, ur ql Trace Negative [facility] Glucose, ur ql Negative Negative [facility] Ketones, ur Negative Negative [facility] Bilirubin, ur Negative Negative [facility] Blood, ur Negative Negative [facility] Urobilinogen, ur <2.0 <2.0 mg/dL [facility] Nitrite, ur Negative Negative [facility] Leukocyte esterase, ur 1+(A) Negative [facility] UA reflex comment Reflex to microscopic UA will be performed. [facility] Urine 08/23/2022 2:58 PM CDT 08/23/2022 3:02 PM CDT Narrative [facility] - 08/23/2022 3:41 PM CDT ?? Urine pH is affected by diet, medications, systemic acid-base disturbances, and renal tubular function. ??pH may affect urinary stone formation. ??For example, urine pH below 6.0 may help reduce the tendency for calcium phosphate stones and pH greater than 6.0 may reduce the tendency for uric acid stone formation. Source: [employer] ([email or web address]). Last revised 04-07-2017 us Jimmy Ruiz MD LAB URINE ORDERABLES Margie hendrix Result [facility] [place] [address] * Drugs of Abuse Screen, Urine without Confirmation (08/23/2022 2:58 PM CDT) Amphetamine, ur Not Detected CutOff 500ng/mL [facility] Comment: Interpretive Data - Amphetamines: ??Samples containing greater than 500 ng/mL d-methamphetamine ??or other cross-reacting amphetamine compounds are reported as positive. ??Amphetamine immunoassays are subject to significant false positive rates due to cross-reactivity of non-amphetamine drugs. Current Interpretive Data was last reviewed 2018. Barbiturates, ur Not Detected CutOff 200ng/mL [facility] Comment: Interpretive Data - Barbiturates: ??Samples containing greater than 200 ng/mL secobarbital or other cross-reacting barbiturate compounds are reported as positive. ??False positive and false negative results are possible. Current Interpretive Data was last reviewed 2018. Benzodiazepines, ur Not Detected CutOff 100ng/mL [facility] Comment: Interpretive Data - Benzodiazepines: ??Samples containing greater than 100 ng/mL nordiazepam or other cross-reacting compounds are reported as positive. ?? False positive and false negative results are possible. ?? Current Interpretive Data was last reviewed 2018. Cannabinoids, ur Not Detected CutOff 50 ng/mL [facility] Cocaine, ur Not Detected CutOff 150ng/mL [facility] Comment: Interpretive Data - Cocaine: ??Samples containing greater than 150 ng/mL benzoylecgonine or other cross-reacting compounds are reported as positive. False positive and false negative results are possible. Current Interpretive Data was last reviewed 2018. Fentanyl, Ur Not Detected Cutoff 1 ng/mL [facility] Comment: Interpretive Data - Fentanyls: ??Samples containing greater than 1 ng/mL fentanyl or other cross-reacting fentanyl compounds are reported as detected. ??False positive and false negative results are possible. Current Interpretive Data was last reviewed 2018. Methadone, ur Not Detected CutOff 300ng/mL [facility] Comment: Interpretive Data - Methadone: ??Samples containing greater than 300 ng/mL d,l-methadone or other cross-reacting compounds are reported as positive. ??False positive and false negative results are possible. Current Interpretive Data was last reviewed 2018. Opiates, ur Not Detected CutOff 300ng/mL [facility] Comment: Interpretive Data - Opiates: ??Samples containing greater than 300 ng/mL morphine or other cross-reacting compounds are reported as positive. ??False positive and false negative results are possible. Current Interpretive Data was last reviewed 2018. Oxycodone, ur Not Detected CutOff 100ng/mL [facility] Comment: Interpretive Data - Oxycodone: ??Samples containing greater than 100 ng/mL oxycodone or other cross-reacting compounds are reported as positive. ??False positive and false negative results are possible. ?? Current Interpretive Data was last reviewed 2018. Phencyclidine, ur Not Detected CutOff 25 ng/mL [facility] Comment: Interpretive Data - Phencyclidine: ??Samples containing greater than 25 ng/mL phencyclidine or other cross-reacting compounds are reported as positive. ??False positive and false negative results are possible. ?? Current Interpretive Data was last reviewed 2018. Urine Creatinine 182 mg/dL [facility] Comment: Interpretive Data Urine Creatinine: < 10 mg/dL is extremely dilute = or > 10 but < 20 mg/dL is dilute = or > 20 mg/dL is normal Current Interpretive Data was last revised on 2017. Urine 08/23/2022 2:58 PM CDT 08/23/2022 3:37 PM CDT Narrative [facility] - 08/23/2022 4:13 PM CDT Drug of Abuse screening is performed by immunoassay for medical purposes only. ??This is not to be used for Pain Management purposes. us Jimmy Ruiz MD LAB URINE ORDERABLES Margie l Result Performing Organization Address [facility] de Phone Number [facility] [place] [address] * Ethanol (08/23/2022 2:58 PM CDT) Ethanol <10 <=10 mg/dL [facility] Comment: Interpretive Data Legal limit of intoxication > or = 80 mg/dL Levels > or = 400 mg/dL are potentially TOXIC. Current interpretive data was last revised on 2018. Blood 08/23/2022 2:58 PM CDT 08/23/2022 3:37 PM CDT us Jimmy Ruiz MD LAB BLOOD ORDERABLES Margie l Result Performing Organization Address [facility] de Phone Number [facility] [place] [address] * TSH reflex to free T4 (08/23/2022 2:58 PM CDT) TSH 1.20 0.30 - 4.20 mcIUnit/mL [facility] Blood 08/23/2022 2:58 PM CDT 08/23/2022 3:37 PM CDT us Jimmy Ruiz MD LAB BLOOD ORDERABLES Margie l Result [facility] [place] [address] * Comprehensive metabolic panel (08/23/2022 2:58 PM CDT) Sodium 140 135 - 145 mmol/L [facility] Potassium, pl 4.0 3.3 - 4.9 mmol/L [facility] Chloride 103 97 - 110 mmol/L [facility] CO2 27 22 - 32 mmol/L [facility] Anion gap 10 2 - 15 mmol/L [facility] BUN 9 8 - 25 mg/dL [facility] Creatinine 0.78 0.60 - 1.10 mg/dL [facility] Glucose 86 70 - 199 mg/dL [facility] Comment: Interpretive Data Fasting glucose >/= [...] classification and Diagnosis of Diabetes Diabetes Care 202; 46: S19-S40. Current interpretive data was last revised 2022. Calcium 10.0 8.5 - 10.3 mg/dL [facility] Bilirubin, total 0.4 0.1 - 1.2 mg/dL [facility] Protein, pl 7.5 6.5 - 8.5 g/dL [facility] Albumin 4.9 3.5 - 5.0 g/dL [facility] Alk phos 100 40 - 130 Units/L [facility] ALT 14 7 - 45 Units/L [facility] AST 23 10 - 45 Units/L [facility] Blood 08/23/2022 2:58 PM CDT 08/23/2022 3:37 PM CDT Jimmy Ruiz MD LAB BLOOD ORDERABLES Margie l Result Performing Organization Address [facility] de Phone Number [facility] [place] [address] * (ABNORMAL) CBC with auto differential (08/23/2022 2:58 PM CDT) [facility] WBC 10.1(H) 3.8 - 9.9 K/cumm [facility] Hgb 13.8 11.9 - 15.5 g/dL [facility] Hct 41.9 35.6 - 45.5 % [facility] Plt 377 150 - 400 K/cumm [facility] MPV 9.1 9.1 - 12.3 fL [facility] RBC 4.63 3.90 - 5.20 M/cumm [facility] MCV 90.5 81.3 - 96.4 fL [facility] MCH 29.8 27.1 - 33.3 pg [facility] MCHC 32.9 32.3 - 35.7 g/dL [facility] RDW CV 12.3 11.1 - 14.9 % [facility] RDW SD 40.2 35.7 - 48.1 fL [facility] NRBC abs 0.00 0.00 - 0.01 K/cumm [facility] Blood (Blood, Venous) 08/23/2022 2:58 PM CDT 08/23/2022 3:37 PM CDT us Jimmy Ruiz MD LAB BLOOD ORDERABLES Margie l Result Performing Organization Address [facility] de Phone Number [facility] [place] [address] documented in this encounter Visit Diagnoses Diagnosis Bipolar disorder, current episode depressed, mild or moderate severity, unspecified (HCC)- Primary Depression, unspecified depression type Suicidal ideation Depression, unspecified depression type documented in this encounter Admitting Diagnoses Diagnosis Depression, unspecified depression type documented in this encounter Administered Medications Inactive Administered Medications - up to 3 most recent administrations Medication Order MAR Action Action Date Dose Rate Site acetaminophen (TYLENOL) tablet 1,000 mg 1,000 mg, oral, Once, On Tue08/23/22 at 1948, For 1 dose Given 08/23/2022 8:05 PM CDT 1,000 mg FLUoxetine (PROzac) tab/cap 10 mg 10 mg, oral, Daily, First dose on Tue08/25/22 at 1200, Do not crush, chew, cut, dissolve, open or otherwise manipulate tablet/capsule. Given 08/26/2022 8:20 AM CDT 10 mg Given 08/25/2022 2:05 PM CDT 10 mg hydrOXYzine (ATARAX) tablet 10 mg 10 mg, oral, Every 4 hours PRN, anxiety, Starting on Tue08/23/22 at 1736 Given 08/25/2022 8:10 PM CDT 10 mg Given 08/24/2022 8:54 PM CDT 10 mg lithium ER (ESKALITH) extended release tablet 450 mg 450 mg, oral, 2 times daily with meals (bkfst, dinner), First dose on Tue08/23/22 at 1800 Given 08/23/2022 6:54 PM CDT 450 mg lithium ER (ESKALITH) extended release tablet 450 mg 450 mg, oral, Once, On Tue08/23/22 at 1856, For 1 dose Given 08/23/2022 8:23 PM CDT 450 mg lithium ER (ESKALITH) extended release tablet 900 mg 900 mg, oral, Nightly, First dose (after last modification) on Tue08/24/22 at 1800 Given 08/25/2022 5:26 PM CDT 900 mg Given 08/24/2022 6:20 PM CDT 900 mg lurasidone (LATUDA) tablet 80 mg 80 mg, oral, Nightly, First dose (after last modification) on Tue08/23/22 at 1830, Take with food Given 08/23/2022 6:54 PM CDT 80 mg lurasidone (LATUDA) tablet 80 mg 80 mg, oral, Daily with dinner, First dose (after last modification) on Tue08/24/22 at 1800, Take with food Given 08/25/2022 5:26 PM CDT 80 mg Given 08/24/2022 6:20 PM CDT 80 mg nicotine polacrilex (NICORETTE) gum 2 mg 2 mg, mouth/throat, Every 2 hours PRN, nicotine withdrawal symptoms, Starting on Tue08/24/22 at 1821, Instruct patients to chew into gum and then place between the cheek and gum to enhance absorption. Given 08/26/2022 4:11 PM CDT 2 mg Given 08/26/2022 10:34 AM CDT 2 mg Given 08/25/2022 4:40 PM CDT 2 mg traZODone (DESYREL) tablet 100 mg 100 mg, oral, Nightly PRN, sleep, Starting on Tue08/23/22 at 1736 Given 08/25/2022 8:10 PM CDT 100 mg Given 08/24/2022 8:54 PM CDT 100 mg documented in this encounter Discontinued Medications Medication Sig Discontinue Reason Start Date End Da te traZODone (DESYREL) 100 mg tabletIndications:insom alyssa associated with depression Take 1 tablet (100 mg total) by mouth nightly as needed for sleep 03/23/2022 08/26/2022 nicotine polacrilex (NICORETTE) 2 mg gumIndications:Smoking Cessation Chew 1 each (2 mg total) as needed for smoking cessation Stop Taking at Discharge 02/26/2022 08/26/2022 lithium ER (ESKALITH) 450 mg CR tabletIndications:Depre ssion associated with Bipolar Disorder Take 1 tablet (450 mg total) by mouth 2 (two) times a day with meals Stop Taking at Discharge 04/30/2022 08/26/2022 lurasidone (LATUDA) 80 mg tablet Take 1 tablet (80 mg total) by mouth daily Stop Taking at Discharge 07/02/2022 08/26/2022 atomoxetine (STRATTERA) 40 mg capsuleIndications:Atte ntion-Deficit Hyperactivity Disorder Take 1 tablet (40mg) for 4 days and then increase to 2 tablets (80mg) if tolerating Stop Taking at Discharge 07/02/2022 08/26/2022 documented as of this encounter Active and Recently Administered Medications Times are shown in CDT. Scheduled Medication Order 08/24/2022 08/25/2022 08/26/2022 FLUoxetine (PROzac) tab/cap 10 mg 10 mg, oral, Daily, First dose on Tue08/25/22 at 1200, Do not crush, chew, cut, dissolve, open or otherwise manipulate tablet/capsule. 1405 (Given - Provider: Chanel Steele RN) 0820 (Given - Provider: Franco Gordon, SAGAR) lithium ER (ESKALITH) extended release tablet 900 mg 900 mg, oral, Nightly, First dose (after last modification) on Tue08/24/22 at 1800 1820 (Given - Provider: Jose Conti RN) 1726 (Given - Provider: Chanel Steele RN) lurasidone (LATUDA) tablet 80 mg 80 mg, oral, Daily with dinner, First dose (after last modification) on Tue08/24/22 at 1800, Take with food 1820 (Given - Provider: Jose Conti RN) 172 (Given - Provider: Chanel Steele RN) PRN Medication Order 08/24/2022 08/25/2022 08/26/2022 hydrOXYzine (ATARAX) tablet 10 mg 10 mg, oral, Every 4 hours PRN, anxiety, Starting on Tue08/23/22 at 1736 2053 (Given - Provider: Rudy Mariano RN) 2009 (Given - Provider: Rudy Mariano RN) nicotine polacrilex (NICORETTE) gum 2 mg 2 mg, mouth/throat, Every 2 hours PRN, nicotine withdrawal symptoms, Starting on Tue08/24/22 at 1821, Instruct patients to chew into gum and then place between the cheek and gum to enhance absorption. 1836 (Given - Provider: Jose Conti RN) 1640 (Given - Provider: Chanel Steele RN) 1034 (Given - Provider: Franco Gordon, SAGAR)1611 (Given - Provider: Franco Gordon, RN) traZODone (DESYREL) tablet 100 mg 100 mg, oral, Nightly PRN, sleep, Starting on Tue08/23/22 at 1736 2053 (Given - Provider: Rudy Mariano, SAGAR) 2009 (Given - Provider: Rudy Mariano RN) documented in this encounter Orders Medications Ordered That Jose ht Not Have Been Administered Count Last Ordered Date First Ordered Date atomoxetine (STRATTERA) capsule 40 mg 1 lithium ER (ESKALITH) extend ed release tablet 900 mg 1 08/23/2022 lurasidone (LATUDA) tablet 80 mg 1 08/24/19 Nursing Count Last Ordered Date First Orde red Date MEASURE HEIGHT AND LENGTH 1 08/24/2022 TOBACCO CESSATION EDUCATION 1 08/24/2022 WEIGH PATIENT 1 08/24/2022 MISCELLANEOUS NURSING CARE ORDER (SPECIFY) 1 08/23/2022 PSYCH MEDICAL BED 1 08/23/2022 Consult Count Last Ordered Date First Orde red Date IP CONSULT TO PSYCHIATRY 1 08/23/2022 Admission Count Last Ordered Date First Orde red Date ADMIT TO INPATIENT 1 08/23/2022 Discharge Count Last Ordered Date First Orde red Date DISCHARGE PATIENT 1 08/26/2022 CORE MEASURES Count Last Ordered Date First Ord ered Date REASON FOR NO VTE PROPHYLAXIS AT ADMISSION 1 08/24/2022 documented in this encounter Care Teams Snow Technician Relationship Specialty Start Date End Date Marlin Contreras MD PCP - General 04/07/17 10/09/23 Bettie Cabezas MD [address] [place] [address] Resident Psychiatry 03/23/22 09/23/23 documented as of this encounter
--- OUTSIDE RECORDS SUMMARY | 2024-03-25 18:43 | XMS_ITS | Encounter Summary ---
Author Organization [facility] Healthcare Address [address] [place] [address] Care Team Providers Care Recruiting Coordinator Name Role Phone Marlin Contreras MD Primary Care Provider [phone] Reason for Visit * Reason Onset Date Comments SW QUESTIONS 02/15/2022 Encounter Details Date Type Department Care Team (Late st Contact Info) Description 02/15/2022 Telephone [facility] [address] [facility] [address] [place] [phone] No, Physician SW QUESTIONS Social History Tobacco Use Types Packs/Day Years [...] staff should administer the PHQ-9) 1 [facility]20[facility]ational Stress Questionnaire Answer Date [...] file Legal Sex Female 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 NO If so, name of provider or agency. 2. Did patient have a prior psychiatric provider before admission? YES If so, is patient being referred back to them? Name: UNABLE TO GO BACK 3. What is the patient's plan for transportation to the appointment? HAS OWN CAR 4. What is a good contact phone number for this patient? [place] [phone] (Father) RIANA [employer]ISOR [employer] documented in this encounter Plan of Treatment Not on file documented as of this encounter Visit Diagnoses Not on filedocumented in this encounter Care Teams Recruiting Coordinator Relationship Specialty Start Date End Date Marlin Contreras MD PCP - General 04/07/17 10/09/23 documented as of this encounter
--- OUTSIDE RECORDS SUMMARY | 2024-03-25 18:43 | XMS_ITS | Encounter Summary ---
Author Organization [facility] Facility Care Team Providers Care Acid Cleaner Name Role Phone Unavailable Primary Care Provider Unavailabl e Encounter Details Date Type Department Care Team (Late st Contact Info) Description 07/10/2015 5:30 PM CDT - 07/10/2015 11:59 PM CDT Hospital Encounter [facility] Sharron, Pelon Estes MD [address] [address] Sprain of medial collateral ligament of left knee, subsequent encounter; Hypertrophy of infrapatellar fat pad Social History Tobacco Use Types Packs/Day Years Used Date Smoking Tobacco: Never Comments Unknown Sex and Gender Information Value Date Recorded Sex Assigned at Not on file 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 LALA MARIE M.D. FINAL REPORT The radiology attending physician has personally reviewed this study, and has reviewed and/or edited this written report and agrees with it. ACC# ??Date Time ??Exam [id number] Jul 10, 2015 18:19:00 [id number] MR Knee without cont L ACC# ??Date Time ??Exam [id number] Jul 10, 2015 18:19:00 [id number] MR Knee without cont L EXAMINATION: ?Left knee MRI without contrast HISTORY: ??Left medial collateral ligament sprain FINDINGS: ?? Left knee radiographs dated 02/03/2015 have been reviewed and are normal. MR examination of the left knee was performed using an extremity coil without contrast. Coronal short TR/TE and fast spin echo images, sagittal fast spin echo images, and transverse fast spin echo images were obtained. In the medial compartment, the meniscus is intact. The articular cartilage is normal. There is no subchondral edema. In the lateral compartment, the meniscus is intact. The articular cartilage is normal. There is no subchondral edema. In the patellofemoral compartment, the articular cartilage is normal. There is no subchondral edema. The anterior and posterior cruciate ligaments are normal. Minimal thickening of the proximal medial collateral ligament may be related to prior sprain. The lateral collateral ligamentous structures are normal. The extensor mechanism is intact. There is mild edema in the superolateral aspect of Hoffa's fat pad. There is a physiologic amount of fluid within the joint. There is trace fluid within a Ball's cyst. Bone marrow signal is normal. ?? IMPRESSION: 1. Mild edema within the superolateral aspect of the left knee Hoffa's fat pad. This finding can be seen with patellar maltracking. 2. Minimal thickening of the proximal medial collateral ligament, in keeping with the history of prior MCL sprain. 3. Normal left knee menisci and articular cartilage. ?? Requested By: Dictated By: ?? LALA MARIE M.D. ??on Jul 11 2015 10:33A This document has been electronically signed by: UMESH BALL M.D. on Jul 11 2015 11:11A [id number] Procedure Note Provider, MD Vani - 07/23/2016 UMESH BALL M.D. LALA MARIE M.D. FINAL REPORT The radiology attending physician has personally reviewed this study, and has reviewed and/or edited this written report and agrees with it. ACC# Date Time Exam [id number] Jul 10, 2015 18:19:00 [id number] MR Knee without cont L ACC# Date Time Exam [id number] Jul 10, 2015 18:19:00 [id number] MR Knee without cont L EXAMINATION: Left knee MRI without contrast HISTORY: Left medial collateral ligament sprain FINDINGS: Left knee radiographs dated 02/03/2015 have been reviewed and are normal. MR examination of the left knee was performed using an extremity coil without contrast. Coronal short TR/TE and fast spin echo images, sagittal fast spin echo images, and transverse fast spin echo images wereobtained. In the medial compartment, the meniscus is intact. The articular cartilage is normal. There is no subchondral edema. In the lateral compartment, the meniscus is intact. The articular cartilage is normal. There is no subchondral edema. In the patellofemoral compartment, the articular cartilage is normal. There is no subchondral edema. The anterior and posterior cruciate ligaments are normal. Minimal thickening of the proximal medial collateral ligament may be related to prior sprain. The lateral collateral ligamentous structures are normal. The extensor mechanism is intact. There is mild edema in the superolateral aspect of Hoffa's fat pad. There is a physiologic amount of fluid within the joint. There is trace fluid within a Ball's cyst. Bone marrow signal is normal. IMPRESSION: 1. Mild edema within the superolateral aspect of the left knee Hoffa's fat pad. This finding can be seen with patellar maltracking. 2. Minimal thickening of the proximal medial collateral ligament, in keeping with the history of prior MCL sprain. 3. Normal left knee menisci and articular cartilage. Requested By: Dictated By: LALA MARIE M.D. on Jul 11 2015 10:33A This document has been electronically signed by: UMESH BALL M.D. on Jul 11 2015 11:11A [id number] Historical Provider MD SCHAEFER MRI PROCEDURES Final Result documented in this encounter Visit Diagnoses Diagnosis Sprain of medial collateral ligament of left knee, subsequent encounter Hypertrophy of infrapatellar fat pad Hypertrophy of fat pad, knee documented in this encounter
--- OUTSIDE RECORDS SUMMARY | 2024-03-25 18:43 | XMS_ITS | Encounter Summary ---
Author Organization [facility] Facility Care Team Providers Care Java Software Name Role Phone Unavailable Primary Care Provider Unavailabl e Encounter Details Date Type Department Care Team (Late st Contact Info) Description 12/18/2014 5:04 PM CDT - 12/18/2014 11:59 PM CDT Hospital Encounter [facility] [place] [address] [place] [address] Pain in joint, lower leg Social History Tobacco Use Types Packs/Day Years Used Date Smoking Tobacco: Never Assessed Comments Unknown Sex and Gender Information Value Date Recorded Sex Assigned at Not on file 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 FINAL REPORT ACC# ??Date Time ??Exam [id number] Dec 18, 2014 17:16:00 [id number] Knee Complete min 4 views R EXAMINATION: ?Right knee complete minimum 4 views HISTORY: ??Right knee pain FINDINGS: ?? Four views of the right knee are obtained. There are no prior studies available for comparison. The joint spaces are intact. Alignment is anatomic. There is no fracture. No knee joint effusion is present. IMPRESSION: ?? Normal right knee radiographs. Requested By: Dictated By: ?? SHAYLA WILKINSON M.D. ??on Dec 19 2014 ??6:25A This document has been electronically signed by: SHAYLA WILKINSON M.D. on Dec 19 2014 ??6:25A [id number] Procedure Note Provider, Vani, - 07/23/2016 SHAYLA WILKINSON M.D. FINAL REPORT ACC# Date Time Exam [id number] Dec 18, 2014 17:16:00 [id number] Knee Complete min 4 views R EXAMINATION: Right knee complete minimum 4 views HISTORY: Right knee pain FINDINGS: Four views of the right knee are obtained. There are no prior studies available for comparison. The joint spaces are intact. Alignment is anatomic. There is no fracture. No knee joint effusion is present. IMPRESSION: Normal right knee radiographs. Requested By: Dictated By: SHAYLA WILKINSON M.D. on Dec 19 2014 6:25A This document has been electronically signed by: SHAYLA WILKINSON M.D. on Dec 19 2014 6:25A [id number] Historical Provider [employer] XR PROCEDURES Final R esult documented in this encounter Visit Diagnoses Diagnosis Pain in joint, lower leg documented in this encounter
--- OUTSIDE RECORDS SUMMARY | 2024-03-25 18:43 | XMS_ITS | Encounter Summary ---
Author Organization [facility] Healthcare Address [address] [place] [address] Care Team Providers Care Alcohol Law Enforcement Agent Name Role Phone Unavailable Primary Care Provider Unavailabl e Encounter Details Date Type Department Care Team (Latest Contact Info) Description 07/20/2016 9:19 PM CDT - 07/20/2016 9:55 PM CDT Hospital Encounter 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 Gender Identity Not on file Sexual Orientation Not on file documented as of this encounter Last Filed Vital Signs Vital Sign Reading Time Taken Comments Blood Pressure 111/72 07/20/2016 9:49 PM CDT Pulse 75 07/20/2016 9:49 PM CDT Temperature 36.7 ??C (98.1 ??F) 07/20/2016 9:49 PM CD T Respiratory Rate - - Oxygen Saturation 98% 07/20/2016 9:49 PM CDT Inhaled Oxygen Concentration - - Weight 61.2 kg (135 lb) 07/20/2016 9:49 PM CDT Height 162.6 cm (5' 4 ) 07/20/2016 9:49 PM CDT Body Mass Index 23.17 07/20/2016 9:49 PM CDT Body Mass Index Percentile 75.97% 07/20/2016 9:4 9 PM CDT Growth Chart: [facility] (Girls, 2- 20 Years) documented in this encounter Plan of Treatment Not on file documented as of this encounter Visit Diagnoses Diagnosis Laceration without foreign body of left eyelid and periocular area, initial encounter Walked into furniture documented in this encounter
--- OUTSIDE RECORDS SUMMARY | 2024-03-25 18:43 | XMS_ITS | Encounter Summary ---
Author Organization [facility] Healthcare Address [address] [place] [address] Care Team Providers Care Regional Education Coordinator Name Role Phone Unknown, Notinfile Primary Care Provider Unavail able Encounter Details Date Type Department Care Team (Latest Contact Info) Description 11/17/2016 7:30 AM CDT - 11/17/2016 11:59 PM CDT Hospital Encounter [facility] [phone] [place] [address] [place] [address] Discharge Disposition: Discharge to home or self care Social History Tobacco Use Types Packs/Day Years Used Date Smoking Tobacco: Never Comments Unknown Sex and Gender Information Value Date Recorded Sex Assigned at Not on file 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 Gender Identity Not on file Sexual Orientation Not on file documented as of this encounter Discharge Disposition Disposition Code Departure Means Destination Discharge to home or self care documented in this encounter Plan of Treatment Not on file documented as of this encounter Procedures Procedure Name Priority Date/Time Associated Diagnosis Comments MRI LOWER EXTREMITY NON JOINT WO CONTRAST Routine 11/17/2016 1:55 PM CDT documented in this encounter Results * MRI Lower Extremity Non Joint WO Contrast (11/17/2016 1:55 PM CDT) Anatomical Region Laterality Modality N/A Magnetic Resonan ce 11/17/2016 1:55 PM CDT Narrative 11/17/2016 1:55 PM CDT ELINOR GALVAN M.D. SHAYLEE KAM M.D. FINAL REPORT The radiology attending physician has personally reviewed this study, and has reviewed and/or edited this written report and agrees with it. 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 TECHNIQUE: Multiplanar multisequence MRI images of both tibia and fibula were obtained without contrast. FINDINGS: ?? Comparison is made to prior radiographs of both tibia and fibula, which are normal. On the T2 images, there is mild periosteal edema along the mid anteromedial tibia bilaterally. There is mild underlying bone marrow edema in the mid anterior tibia. There are no fractures. Small bilateral Ball's cysts are noted. The muscles of the legs are symmetric and without myositis. The visualized tendons are normal in signal and morphology. The vasculature is grossly normal. IMPRESSION: ?? Mild bilateral medial tibial stress syndrome (esqueda splints) Requested By: Alec Min ??M.D. ? Dictated By: ?? SHAYLEE KAM M.D. ??on Nov 17 2016 ??9:38A This document has been electronically signed by: ELINOR GALVAN M.D. on Nov 17 2016 11:17A ELINOR GALVAN M.D. SHAYLEE KAM M.D. FINAL REPORT The radiology attending physician has personally reviewed this study, and has reviewed and/or edited this written report and agrees with it. Attending: ??MARSHALL, ??ALEC Requesting: ??Marshall, ??Alec Requesting Fax: ?? Attending Fax: ?? Attending ID: ??[id number] Requesting ID: ??[id number] Report To 1 ID: ??[id number] ? Report To 1 Name: ??, ?? Report To 1 FAX: ?? NextGen Order #: ?? Procedure Note Miscellaneous, Not In File - 01/23/2017 ELINOR GALVAN M.D. SHAYLEE KAM M.D. FINAL REPORT The radiology attending physician has personally reviewed this study, and has reviewed and/or edited this written report and agrees with it. 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 TECHNIQUE: Multiplanar multisequence MRI images of both tibia and fibula were obtained without contrast. FINDINGS: Comparison is made to prior radiographs of both tibia and fibula, which are normal. On the T2 images, there is mild periosteal edema along the mid anteromedial tibia bilaterally. There is mild underlying bone marrow edema in the mid anterior tibia. There are no fractures. Small bilateral Ball's cysts are noted. The muscles of the legs are symmetric and without myositis. The visualized tendons are normal in signal and morphology. The vasculature is grossly normal. IMPRESSION: Mild bilateral medial tibial stress syndrome (esqueda splints) Requested By: Alec Min M.D. Dictated By: SHAYLEE KAM M.D. on Nov 17 2016 9:38A This document has been electronically signed by: ELINOR GALVAN M.D. on Nov 17 2016 11:17A Mary GARCIA M.D. FINAL REPORT The radiology attending physician has personally reviewed this study, and has reviewed and/or edited this written report and agrees with it. Attending: ALEC MIN Requesting: Alec Min Requesting Fax: Attending Fax: Attending ID: [id number] Requesting ID: [id number] Report To 1 ID: [id number] Report To 1 Name: , Report To 1 FAX: NextGen Order #: Alec Min MD [facility] MRI PROCEDURES Edited Result - Final documented in this encounter Visit Diagnoses Not on filedocumented in this encounter Care Teams Regional Education Coordinator Relationship Specialty Start Date End Date Unknown, Notinfile PCP - General 11/13/16 11/24/16 documented as of this encounter
--- OUTSIDE RECORDS SUMMARY | 2024-03-25 18:43 | XMS_ITS | Encounter Summary ---
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 and maintain safe environment. 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 * Jose Conti RN - 02/14/2022 1:49 PM CST Received report and assumed care. Upon assessment @0813 patient was noted standing in milieu. Patient denied depression. Patient states depression is a 0 on a scale of 1-10. Patient states anxiety jojo 6 on a scale of 1-10. PRN ativan administered refer to MAR. Patient denies suicidal/homicidal ideations. Patient denies A/V/H. Patient denied pain on initial assessment. Patient states last BM was on 02/13/22. Patient was compliant with vital signs and morning medications. Since start of shift. Phone restrictions has been enforced per doctors order. Patient has gotten the phone from another patient, while on phone patient was yelling, screaming, and talking about beingraped by her friend, and etc. Patient has made some delusional statement referring to Junior Barajas. Anxiety did decrease from morning dose Ativan. @0955 patient states anxiety decreased to a 4 on a scale of 1-10. @12:15pm patient complained of a headache. Patient states her pain level was a 10 on a scale of 1-10. PRN tylenol administered. @1:00pm patient was crying stating she has been here for two weeks, she came here voluntary and no one wants to let her leave. Neighborhood Planner re-educated patient on possible discharge and discussed relaxation techniques. Patient requested an Ativan. Patient states her anxiety was a 10 on a scale of 1-10. PRN ativan administered once again. Refer to MAR. @1348 patient states anxiety decreased. Patient states anxiety is a 0 on a scale of 1-10. @1:20pm patient states headache did decrease. Patient stated headache decreased to a 0 on a scale of 1-10. Patient has required redirection throughout shift. Staff remains nearby monitoring making safety rounds every 15 minutes to maintain patient safety. No acute distress is observed. Will continue to monitor and redirect. [place] is on. 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 * Ashwini Lowry RN - 02/13/2022 8:39 PM CST Assumed care of patient at 1930. Patient was calm and cooperative but needy, coming up to staff to ask for something repeatedly. Patient also came to nurse and stated Be careful. He's famous. I justwant you to be careful , while talking about a male peer. Patient also stated I'm Stephanie Vincent. The real Stephanie Vincent while talking to another patient. Patient rated anxiety 10/10, depression 0/10 and pain 0/10. Denied SI/HI and A/VH. Contracted for safety. Patient was visible in the milieu and interacted with peers. Patient was compliant with scheduled medications and received ativan PRN for anxiety and nicorette gum PRN. At 2139, patient rated anxiety 0/10. At 2200, patient asked for trazodone PRN and then a minute later stated Just kidding. No trazodone . At 2313, patient was given trazodone PRN for sleep and at 0013, patient appeared sleeping in bed. No other complaints at this time. Precautions and safety checks maintained. 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 * Jose Conti RN - 02/13/2022 11:55 AM CST Reassessment of anxiety was done @0935. Ativan was effective. Patient states anxiety decreased to a0 on a scale of 1-10. Patient appears to be in a good and happy mood. 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 * Jose Conti RN - 02/13/2022 11:43 AM CST Received report and assumed care. Upon assessment @0800 patient was noted standing in milieu. Patient mood and behaviors has approved this shift. Patient is pleasant. Patient denies depression. Patient states depression is a 0 on a scale of 1-10. Patient states anxiety is an 8 on a scale of 1-10. PRN Ativan administered for anxiety. Refer to MAR. Patient denies suicidal/homicidal ideations. Patient denies A/V/H. Patient denies pain. Patient states last BM was on 02/13/22. Patient was compliant with vital signs and morning medications. Patient is calm, cooperative, and compliant. Patient voices no complaints or concerns. Staff remains nearby monitoring making safety rounds every 15 minutes to maintain patient safety. No acute distress is observed. Will continue to monitor. [place] is on. 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 * Ashwini Lowry RN - 02/12/2022 11:06 PM CST Assumed care of patient at 1930. Patient was calm and cooperative during assessment. Patient rated anxiety 10/10, depression 0/10 and pain 8/10 (headache). Patient denied SI/HI and A/VH and contracted for safety. Patient was visible in the milieu and interacted appropriately with staff and peers. Abdi hugh was compliant with all scheduled medications and received nicorette gum PRN, tylenol PRN for pain and ativan PRN for anxiety. Patient stated she will take trazodone at 2100 for sleep however when offered to her again, patient stated I don't want it anymore . At 2108, patient denied any pain and anxiety. Medications are effective at this time. At 2356, patient asked for trazodone PRN again for sleep. Patient appeared sleeping at 0056. No further complaints. Precautions and safety checks maintained. 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 * Que Flores RN - 02/12/2022 8:35 AM CST Stephanie is a 21 y.o. female patient admitted 02/01/2022 for the treatment of Bipolar affective disorder, current episode manic with psychotic symptoms ([facility]) ([facility]). The patient's legal status is involuntary. She is allergic to sulfa (sulfonamide antibiotics) and sulfamethoxazole-trimethoprim. Our patient is found appearing calm in the milieu today. Stephanie is compliant with vital signs, morning assessment, & medications. The patient is wearing a beacon device. She denies any physical pain, as well as any symptoms of COVID. The patient states that her appetite has been good, adding that it has been normal. Sleep Patient Reports Sleep: Generally restful sleep ( good; I took Ativan & Trazodone and slept fine ) Total Hours of Sleep: 6.8 The patient rates her depression 0 out of 10 and her anxiety 7 out of 10. Suicidal, Homicidal, and Self Harm Assessment Currently suicidal? : No Currently Homicidal? : No Self Harm Behaviors : -- (n/a) Self Harm Thoughts With Intent: -- (n/a) Self Harm Thoughts Without Intent: -- (n/a) Orientation and Intellectual Functioning Concentration: Fair Memory: MICHAEL Insight: Poor (poor to fair) Judgement: Fair Decision Making : Fair Orientation Level: Oriented X4 Level of Consciousness: Alert Psychosocial Assessment Patient Complaints: None Facial Expression: Appropriate Affect: Appropriate Mood: Content; Anxious/Worried ( content, a little anxious ) Eye Contact: Fair Exhibited Behavior: Appropriate, relaxed; Compliant with treatment/expectations; Criticizing staff /hospital Interaction: Attention-seeking Motor Activity: WDL Appearance/Hygiene: Appropriate/neat/clean Stephanie denies AVH at this time. She has demonstrated appropriate interactions with peers and staff.The patient contracts for the safety of self and others at this time, and agrees to speak with a member of the staff if she feels she is no longer able to remain safe on the unit. Plan of Care Review Plan of Care Reviewed With: Patient Clinical Goals for the Shift: to get out of here; to stop being so impatient & try to keep my cool pretty much When asked about her personal strengths, she stated: being able to keep my head up during hard times; trying to help people. All questions and concerns were addressed. Will continue to encourage treatment goals and monitor for safety. 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 * Coty Abdullahi, RN - 02/12/2022 5:23 AM CST Pain reassessment and prn follow up. Patient appears to be sleeping. Respirations even and unlabored. Prn Tylenol and prn Ativan deemed effective. 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 * Rebecca Guardado RN - 02/12/2022 4:49 AM CST Pt approached this RN at the beginning of the shift and apologized for her behavior on the previousshift towards RN. Later, around 0330, pt came out and asked for prn nasal spray. Patient appeared calm and RN asked her Do you feel like your mood is getting better? Pt stated Yeah, I'm starting to really realize how messed up I was before. This started a therapeutic conversation that lasted about 20 minutes with the patient. RN and patient discussed s/s of eladio, the intervals of depression and eladio, the medications given to treat bipolar, and the need for continued therapy and medicationmanagement outpatient. Patient displayed insight on her illness, able to discuss her symptoms, and was eager to learn about the clinical presentations and medical interventions. Pt did state that ghazal knows the thoughts about Aiden Olivera were a delusion. 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 Pt stated I started to realize something was wrong after that court date. It made me realize you guys aren't doing this because you're mean, like I actually needed the help. RN then had an admission arrive and had to end the conversation, but it appeared to be a significant change from previous interactions and patient thanked this screenplay writer for speaking with her. 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 * Coty Abdullahi RN - 02/12/2022 4:23 AM CST Patient complained of headache pain in her head and behind her eyes. She rated the pain 7/10. She reported having more headaches during this admission than when at home. She received Tylenol 500 mg prn for pain at 0423. 0429 Patient complained of Anxiety 7/10. She received Ativan 1 mg prn for anxiety. Will report this to patient's assigned nurse. 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 * Coty Abdullahi RN - 02/12/2022 1:17 AM CST Patient was observed in room sleeping. 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 * Juan Antonio Fontana RN - 02/11/2022 9:04 PM CST Assumed care of patient at 1930. Patient was interacting appropriately in the milieu. Patient was cooperative with assessment questions and medication compliant. Patient spoke with her mother on the phone and the call went well. Patient asked once if she could go home tonight. The patient accepted the response. Patient denied A/V hallucinations, suicidal and homicidal thoughts. Patient reports feeling anxious this shift. Denies depression Patient reports no other concerns or questions. Patient in no visible signs of distress. Will continue to monitor. 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 * Que Flores RN - 02/11/2022 8:50 AM CST Stephanie Coates is a 21 y.o. female here for bipolar affective disorder, current episode manic withpsychotic symptoms. The patient's legal status is involuntary. She is A&OX4 and is found appearing mostly calm in the milieu, with occasional outbursts demanding discharge or otherwise expressingfrustration with her involuntary confinement. Stephanie is compliant with vital signs, morning assessment, & medications. The patient is wearing a beacon. She complains of 4/10 headache for which she states that she would like an acetaminophen but then spits it out of her mouth and refuses at med pass. The patient denies any symptoms of COVID. The patient states that her appetite has been normal, adding: it's back to normal, thank god. Stephanie states that she slept very good last night. Later in the day, she complains of diarrhea and states that she believes that the hospital is puttingMiraLax in her food. When asked what brought her to the hospital, she states: I'm here being an advocate for others. I voluntarily asked myself to be here. When asked for more information about what happened prior to her presentation to the hospital, she stated: I went to the [place] [employer] because I felt unsafe. I saw someone on the missing persons list that I thought I knew and I started calling 911. The put me in handcuffs and then I kicked the officer. Then they sent me to correction. The patient describes her mood as content, with depression rated 0/10 and anxiety rated 4/10. Stephanie denies SI,HI, or AVH at this time. Regarding history of AVH she endorses it in the past but can't remember how long ago this was. She has demonstrated appropriate interactions with staff and peersbut is occasionally intrusive and makes multiple requests for different medications and later changes her mind. She was overheard on the phone speaking with her mother stating that she asked for her nasal spray just to see if my nurse would bring it to me. The patient contracts for the safety of self and others at this time, and agrees to speak with a member of the staff if she feels she is no l onger able to keep herself safe. When asked about her personal strengths, she stated: being able to go through hard times and stay positive and be there for others. She states that her goal for today is talk to people and keep making relationships with people here, and hopefully get out of here. All questions and concerns wereaddressed. Will continue to encourage treatment goals and monitor for safety. 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 * Ariana Patel RN - 02/11/2022 3:15 AM CST Patient complained of severe diarrhea. Patient came and requested/received Imodium 2 mg. RN also gave patient 2 pair of scrub pants, extra underwear to change into. Will continue to monitor patient. @ 0415 F/U Imodium: patient laying in bed sleeping. @ 0645 Patient woke up this morning requesting discharge, Aleksandr, and to call her mom. RN attempted to explain to patient it is too early for her to take her medications and the MD has to discharge her. RN called her mother and explained that the patient woke up agitated. Patient slept a total of 4.2 hours. Will continue to monitor patient. 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 * Ariana Patel RN - 02/10/2022 9:05 PM CST Patient was sitting in milieu watching a movie with other patients and walking around. Patient father came to visit and they sat in dining room. Patient is calm, demanding, cooperative and medicationcompliant. Anxiety-5/Depression-0 (patient admitted to being anxious about leaving; but, does not display any anxiety). No audible/visual hallucinations, SI or HI admitted. Patient goal for tonight is to leave and be patient . Patient requested Sodium Chloride 0.65% for rhinitis and Imodium 2 mg for diarrhea. Will continue to monitor patient. @ 2210 F/U Sodium Chloride and Imodium: nasal clear and diarrhea improved. Will continue to monitor patient. @ 2305 Patient requested/received Trazodone 100 mg for sleep. Patient walked to her room. Will continue tomonitor patient. @ 2317 Patient came back up to Nurses station requesting/received Ativan 1 mg for anxiety. Patient agitation is increasing. RN asked patient if there was anything else she needed/wanted so she can get everything at one time. Patient requested/received lemon-aide and applesauce and walked to her room. Will continue to monitor patient. @ 0008 F/U Trazodone/Ativan: Patient is laying in bed sleeping. Will continue to monitor patient. 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 * Tessa Michel RN - 02/10/2022 2:12 PM CST Patient is A&Ox4, calm, cooperative this morning. Patient does not speak of Aiden Olivera or Junior Williamson delusions today. Appropriate affect, appears brighter. Frustrated mood intermittently related to invol admit but is redirectable. Patient's mother visited, patient became angry and blaming mother for her hospital admission. Patient was redirectable and remorseful toward mother. Patient is calm and appropriate during periods of no frustration. Attended meals. Visible in milieu, engaging with peers and staff appropriately, attending groups. Complied with VS, morning assessment and medications. Denied SI,HI or AVH at this time. Denies changes in sleep and reports increase in her appetite. Reports 5/10 anxiety and no depression. Patient complains of diarrhea again today, received prn, see below. Contracts to safety of self and others this shift. All questions and concerns addressed. Will continue to monitor for safety and encourage treatment goals. Patient attend court at 1600 appropriately and was notified of granted 21 day invol tx. PRNs: Ativan 1mg po for 7/10 anxiety given at 1207, upon reassessment reports relief of anxiety Tylenol 500mg at 0819 for 5/10 headache, upon reassessment pt reports relief of pain Imodium 2mg given at 0819 for diarrhea, upon reassessment pt reports temporary relief of diarrhea. Requested second dose at 1626. 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 * Argelia Tam RN - 02/10/2022 12:07 PM CST Ativan PO requested by patient anxiety reported 7/10. 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 * Rebecca Guardado RN - 02/10/2022 3:58 AM CST Pt awoke and approached RN for tylenol. Pt reported 5/10 headache and approximately 1 hour later, pt reports 2/10 headache. When reassessing pain, pt reports 5/10 anxiety and requests medication to help. Currently, patient only has ativan as prn for anxiety so it was administered. Approximately 1 hour later, pt was observed sleeping in her room. 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 * Juan Antonio Fontana RN - 02/09/2022 10:34 PM CST Assumed care of patient at 1930. Patient was in the milieu interacting with peers appropriately. During assessment the patient answered questions appropriately and was calm and cooperative. She reports her goal as getting discharged . After another patient had an outburst this patient started to focus on being discharged tonight. Patient was presisting that she be discharged and for us to call her dad to come and get her. The patient requested ativan for anxiety which she rated a 10. Patient requested trazodone for sleep. After 1 hour assessment the patient was sleeping. Patient denies A/V hallucinations, suicidal and homicidal thoughts. Patient endorsed feeling anxious or depressed this shift. Patient reports no other concerns or questions. 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 * Tessa Michel RN - 02/09/2022 9:18 AM CST Patient is A&Ox4, calm, cooperative this morning. Reports still believing delusions of Aiden Olivera being her significant other and Junior Williamson being her cousin. Appropriate affect, appears brighter. Frustrated mood intermittently related to invol admit but is redirectable. Patient is calm andappropriate during periods of no frustration. Attended meals. Visible in milieu, engaging with peers and staff appropriately. Complied with VS, morning assessment and medications. Denied SI,HI or AVHat this time. Denies changes in sleep and reports increase in her appetite. Reports 5/10 anxiety and 3/10 depression. Denies pain. Patient reports increase in frequency of BMs and describes it as diarrhea stating her stools are watery. notified of pt diarrhea complaint and request for nasal spray at 0925. Patient reports wanting to smoking cessation guidance upon discharge. Contracts to safety of self and others this shift. All questions and concerns addressed. Will continue to mo nitor for safety and encourage treatment goals. PRNs: Ativan 1mg po for 5/10 anxiety given at 1317, upon reassessment reports relief of anxiety Tylenol 500mg at 1217 for 4/10 headache, upon reassessment pt reports relief of pain Tylenol 500mg at 1733 for 7/10 headache, upon reassessment reports full pain relief Imodium 2mg given at 1007 for diarrhea, upon reassessment pt reports relief of diarrhea 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 * Ashwini Lowry RN - 02/08/2022 8:35 PM CST Assumed care of patient at 1930. Patient was calm and cooperative during assessment. Patient rated anxiety 0/10, depression 0/10 and pain 4/10 (headache). Patient denied SI/HI and A/VH and contractedfor safety. Patient was visible in the milieu and interacted appropriately with peers and staff. Patient exhibited pressured speech, asking for medications while staff was talking to another patient.Patient was redirected. Patient was compliant with scheduled medications and received tylenol PRN for pain, trazodone PRN for sleep and nicotine gum PRN. At 2146, patient appeared sleeping in bed. Medications effective. No further complaints at this time. At 0115, patient approached staff stating I can't sleep, my anxiety is high. I've been sleeping a lot today and now I can't sleep. Can you give me something? Patient rated anxiety 10/10. Pulled ativan 1mg PRN from the pyxis but then patient refused as it was being given to her stating I don't want it anymore. The steel finisher are here, my anxiety is a 2/10 now . Wasted Ativan PRN with another RN. Precautions and safety checks maintained. 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 * Tessa Michel RN - 02/08/2022 9:19 AM CST Patient is A&Ox4, calm, cooperative this morning. Appropriate, blank affect. Labile mood. Requests frequently to be discharged and to make phone calls. Accepting of redirection but is verbally threatening toward staff, stating I will report you and make you lose your job. If you don't let me leave I will beat your ass . Patient calmed after redirection. Minimal prns given. Attended meals. Visible in milieu, engaging with peers and staff appropriately. Complied with VS, morning assessment and medications. Denied SI,HI or AVH at this time. Denies changes in sleep and reports increase in her appetite. Reports 3/10 anxiety and denied depression. Denies pain. Patient states goal today is to discharge. Contracts to safety of self and others this shift. All questions and concerns addressed.Will continue to monitor for safety and encourage treatment goals. Patient given 96 hour Involuntary Hold paperwork at 11:50am. PRNs: Ativan 1mg po at 1311 for increasing anxiety related to 96 hr hold. Patient eventually laid down for a nap and has calmed toward staff. 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 * Rebecca Guardado, SAGAR - 02/08/2022 12:05 AM CST Pt was in milieu upon assessment. Pt continues to be labile, disrespectful, and delusional. Upon assessment, pt appeared on edge, stating she was wanting to leave and was having 8/10 anxiety. RN wentto go get prn ativan for anxiety. Upon return, pt was crying and RN attempted to comfort her. Pt stated You don't get it, it's because of Perfecto Williamson. He is why I'm in here. He is my dad's dad. Pt took prn ativan and then requested to call her mom back. Pt was given the phone after it was dialed and told to stand at the nurse's station. Pt was compliant with this, but was yelling on the phone to her mother to come get her, cursing and demanding. Pt stormed to her room and was yelling, but appeared to be calm when she came back into the milieu about 10 minutes later. Pt was then given prntrazodone as she requested it due to trouble sleeping. Pt also was provided prn tylenol for a headache at the time of her assessment. Approximately 1 hour after being given the ativan, pt was in the milieu and appeared calm. Approximately 1 hour after trazodone was given, pt was observed laying in bed with eyes closed. No other remarkable events. 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 * Krystina French RN - 02/07/2022 9:46 AM CST 0946 Patient reported pain to the head. Reports its pounding in nature. PRN Tylenol (SEE MAR) given 1040 continue to report headache. Partial relief. Encouraged to use diversional techniques and to try to relax or rest. 1116 patient yelling in dayroom. Outburst behaviors redirected. Patient reports anxiety and requestmedication for same. Ativan given (SEE MAR ) for anxiety. 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 * Krystina French RN - 02/07/2022 9:01 AM CST Stephanie Coates is intrusive, labile and friendly with peers. She is demanding with frequently request from staff. Remains alert and oriented x 4. Denied SI/HI. Reported no anxiety and depression. Denies delusions and hallucinations. Compliant with medication and treatment. No complains of pain. Noother complains voiced. Will continue to monitor and provide support for patient. 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 * Rebecca Guardado RN - 02/06/2022 10:19 PM CST Pt in TV room upon assessment. Pt labile, intrusive, and interrupts intermittently during assessment. Pt can be observed smiling and laughing at times, then yelling and demanding at other times. Pt denies depression or any SI/HI/AVH. Pt states her anxiety is like a 1 and requested tylenol for 4/10 headache. When reassessed for pain, pt states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 want to leave. Her parents do not believe they can take care of her at home and are concerned for their safety. She is not stable for discharge and has court at 1600 today to discuss a 21 day hold. Plan - Admitted on 96 hour hold, renewed on 02/08 based on parental concerns and petition submitted for 21 day hold - Abilify 20 mg PO with Initio loading and maintenance 882mg monthly with emla given 02/04/2022 - Thorazine 100mg TID started 02/06/22 - PRNs for comfort and safety - Nicotine gum and Nicotine patch - Motivational interviewing as tolerated -Daily updates for Dad: Colten Coates and Mom: Lu Cosigned by Simi Rodriguez MD at 02/10/2022 4:17 PM PROC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 * Plan of Care - Tessa Michel RN - 02/09/2022 9:18 AM CST Problem: Activity: Goal: Interest or engagement in leisure activities will improve Outcome: Progressing Goal: Sleeping patterns will improve Outcome: Progressing Problem: Cognitive: Goal: Mental status will improve Outcome: Progressing Problem: Lack of Knowledge: Goal: Verbalization of understanding the information provided will improve Outcome: Progressing Problem: Coping: Goal: Ability to verbalize frustrations and anger appropriately will improve Outcome: Progressing Goal: Ability to demonstrate self-control will improve Outcome: Progressing Problem: Health Behavior: Goal: Identification of resources available to assist in meeting health care needs will improve Outcome: Progressing Goal: Compliance with treatment plan for underlying cause of condition will improve Outcome: Progressing Problem: Physical Regulation: Goal: Ability to maintain clinical measurements within normal limits will improve Outcome: Progressing Problem: Safety: Goal: Ability to contract for his/her safety will improve Outcome: Progressing Goal: Periods of time without injury will increase Outcome: Progressing Problem: Self-Concept: Goal: Verbalizations of decreased anxiety will increase Outcome: Progressing Problem: Treatment compliance Goal: Establish a relationship with a PCP Outcome: Progressing Goal: Schedule an appointment with a psychiatrist Outcome: Progressing Goal: Schedule an appointment with a therapist Outcome: Progressing Goal: Verbalize importance of compliance with medication(s) prescribed Outcome: Progressing Goal: Take prescribed medication(s) Outcome: Progressing Goal: Attend scheduled treatment sessions and contact if unavailable to attend Outcome: Progressing Goal: Build healthy support system Outcome: Progressing Problem: Lack of knowledge Goal: Identify the name, purpose, and side effects to medication(s) prescribed Outcome: Progressing Goal: Identify pros and cons of compliance to medication(s) prescribed Description: Identify 3 pros and 3 cons of taking the medication(s) as prescribed by the physician Outcome: Progressing Goal: Verbalize understanding of treatment process Outcome: Progressing Problem: Lack of insight Goal: Recognize defense mechanisms Description: Name 3 defense mechanisms that you use Outcome: Progressing Goal: Recognize barriers to change Description: Name 3 reasons that make changing thoughts and behaviors difficult Outcome: Progressing Goal: Verbalize understanding of how behaviors/decisions affect symptoms Outcome: Progressing Goal: Accept personal responsibility for behaviors/decisions Outcome: Progressing Problem: Healthy functioning Goal: Develop a wellness routine Outcome: Progressing Goal: Identify healthy coping skills Description: Identify 3 healthy coping skills Outcome: Progressing Goal: Report/demonstrate use of healthy coping skills Outcome: Progressing Goal: Demonstrate healthy communication behaviors Outcome: Progressing Goal: Demonstrate understanding of impact of thoughts on mood/behaviors Outcome: Progressing Problem: Bipolar disorder Goal: Verbalize understanding and acceptance of bipolar diagnosis Outcome: Progressing Goal: Identify symptoms of bipolar depression Description: Name and accurately define 3 symptoms of bipolar depression that you experience Outcome: Progressing Goal: Identify symptoms of bipolar eladio Description: Name and accurately define 3 symptoms of bipolar eladio that you experience Outcome: Progressing Goal: Identify triggers of bipolar depression Description: Identify 3 things that trigger bipolar depression Outcome: Progressing Goal: Identify triggers of bipolar eladio Description: Identify 3 things that trigger bipolar eladio Outcome: Progressing Goal: Report/demonstrate reduction in impulsive behaviors Outcome: Progressing Goal: Report/demonstrate stabilization of mood Outcome: Progressing Problem: Prepare for discharge Goal: Identify barriers to returning to work Description: Identify 3 barriers to returning to work Outcome: Progressing Goal: Develop a return to work plan Outcome: Progressing Goal: Develop a relapse prevention plan Outcome: Progressing Goal: Coordinate follow-up appointments Outcome: Progressing Goal: Verbalize importance of follow-up care Outcome: Progressing Problem: Poor anger management Goal: Identify triggers of anger Description: Identify 3 things that trigger anger Outcome: Progressing Goal: Demonstrate controlled behavior toward others Outcome: Progressing Goal: Report/demonstrate decreased agitation/aggression Outcome: Progressing Goal: Report/demonstrate decrease in blaming others Outcome: Progressing Goal: Accept personal responsibility for behaviors/decisions Outcome: Progressing Problem: Thoughts of harm to self or others Goal: Identify triggers of thoughts of self-harm Description: Identify 3 things that trigger thoughts of self-harm Outcome: Progressing Goal: Report decrease in/absence of self-harm thoughts Outcome: Progressing Goal: Verbalize plan to remain safe when thoughts of self-harm arise Outcome: Progressing Goal: Report/demonstrate decreased isolation through socialization Outcome: Progressing Goal: Report/demonstrate increased trust in others Outcome: Progressing Goal: Identify triggers of thoughts of harming others Description: Identify 3 things that trigger thoughts of harming others Outcome: Progressing Goal: Demonstrate controlled behavior toward others Outcome: Progressing Goal: Seek help immediately when having thoughts of harming others Outcome: Progressing Problem: History of abuse/trauma Goal: Identify history of trauma Outcome: Progressing Goal: Identify post-traumatic symptoms Description: Identify 3 symptoms that are a result of past trauma Outcome: Progressing Goal: Identify triggers of post-traumatic symptoms Description: Identify 3 things that trigger post-traumatic symptoms Outcome: Progressing Goal: Verbalize understanding of influence of trauma on ability to trust Outcome: Progressing Goal: Report/demonstrate decreased isolation through socialization Outcome: Progressing 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 * Plan of Care - Ashwini Lowry RN - 02/08/2022 8:35 PM CST Goals: Clinical Goals for the Shift: none stated Summary: Problem: Activity: Goal: Interest or engagement in leisure activities will improve Outcome: Progressing Problem: Coping: Goal: Ability to demonstrate self-control will improve Outcome: Progressing Problem: Health Behavior: Goal: Compliance with treatment plan for underlying cause of condition will improve Outcome: Progressing Problem: Safety: Goal: Ability to contract for his/her safety will improve Outcome: Progressing Goal: Periods of time without injury will increase Outcome: Progressing Problem: Self-Concept: Goal: Verbalizations of decreased anxiety will increase Outcome: Progressing Problem: Treatment compliance Goal: Take prescribed medication(s) Outcome: Progressing 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 * Plan of [place] - Tessa Michel RN - 02/08/2022 9:18 AM CST Problem: Activity: Goal: Interest or engagement in leisure activities will improve Outcome: Progressing Goal: Sleeping patterns will improve Outcome: Progressing Problem: Cognitive: Goal: Mental status will improve Outcome: Progressing Problem: Lack of Knowledge: Goal: Verbalization of understanding the information provided will improve Outcome: Progressing Problem: Coping: Goal: Ability to verbalize frustrations and anger appropriately will improve Outcome: Progressing Goal: Ability to demonstrate self-control will improve Outcome: Progressing Problem: Health Behavior: Goal: Compliance with treatment plan for underlying cause of condition will improve Outcome: Progressing Problem: Physical Regulation: Goal: Ability to maintain clinical measurements within normal limits will improve Outcome: Progressing Problem: Safety: Goal: Ability to contract for his/her safety will improve Outcome: Progressing Goal: Periods of time without injury will increase Outcome: Progressing Problem: Self-Concept: Goal: Verbalizations of decreased anxiety will increase Outcome: Progressing Problem: Thoughts of harm to self or others Goal: Verbalize plan to remain safe when thoughts of self-harm arise Outcome: Progressing Goal: Demonstrate controlled behavior toward others Outcome: Progressing Problem: Medication: Goal: Satisfaction with pain management regimen will improve Outcome: Progressing Problem: Sensory: Goal: Pain level will decrease Outcome: Progressing 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 * Plan of [place] - Rebecca Guardado RN - 02/07/2022 11:53 PM CST Problem: Health Behavior: Goal: Compliance with treatment plan for underlying cause of condition will improve Outcome: Progressing Problem: Activity: Goal: Interest or engagement in leisure activities will improve Outcome: Not Progressing Problem: Cognitive: Goal: Mental status will improve Outcome: Not Progressing Problem: Lack of Knowledge: Goal: Verbalization of understanding the information provided will improve Outcome: Not Progressing Problem: Coping: Goal: Ability to verbalize frustrations and anger appropriately will improve Outcome: Not Progressing Goal: Ability to demonstrate self-control will improve Outcome: Not Progressing Problem: Self-Concept: Goal: Verbalizations of decreased anxiety will increase Outcome: Not Progressing Goals: Clinical Goals for the Shift: no goal stated Summary: see nursing note 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 * Plan of Care - Krystina French RN - 02/07/2022 8:54 AM CST Problem: Lack of insight Goal: Accept personal responsibility for behaviors/decisions Outcome: Progressing Problem: Healthy functioning Goal: Identify healthy coping skills Description: Identify 3 healthy coping skills Outcome: Progressing Problem: Bipolar disorder Goal: Report/demonstrate reduction in impulsive behaviors Outcome: Progressing Goal: Report/demonstrate stabilization of mood Outcome: Progressing Problem: Poor anger management Goal: Report/demonstrate decreased agitation/aggression Outcome: Progressing 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 * Plan of Care - Rebecca Guardado RN - 02/06/2022 9:04 PM CST Problem: Health Behavior: Goal: Compliance with treatment plan for underlying cause of condition will improve Outcome: Progressing Problem: Safety: Goal: Periods of time without injury will increase Outcome: Progressing Problem: Cognitive: Goal: Mental status will improve Outcome: Not Progressing Problem: Lack of Knowledge: Goal: Verbalization of understanding the information provided will improve Outcome: Not Progressing Problem: Coping: Goal: Ability to demonstrate self-control will improve Outcome: Not Progressing Problem: Lack of insight Goal: Verbalize understanding of how behaviors/decisions affect symptoms Outcome: Not Progressing Goal: Accept personal responsibility for behaviors/decisions Outcome: Not Progressing Problem: Bipolar disorder Goal: Verbalize understanding and acceptance of bipolar diagnosis Outcome: Not Progressing Goal: Identify symptoms of bipolar eladio Description: Name and accurately define 3 symptoms of bipolar eladio that you experience Outcome: Not Progressing Goals: Clinical Goals for the Shift: no goal stated Summary: see nursing note 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 * Plan of Care - Raisa Nicolas RN - 02/06/2022 8:29 AM CST Problem: Cognitive: Goal: Mental status will improve Outcome: Not Progressing Problem: Lack of Knowledge: Goal: Verbalization of understanding the information provided will improve Outcome: Not Progressing Problem: Coping: Goal: Ability to verbalize frustrations and anger appropriately will improve Outcome: Not Progressing Problem: Health Behavior: Goal: Compliance with treatment plan for underlying cause of condition will improve Outcome: Progressing Problem: Self-Concept: Goal: Verbalizations of decreased anxiety will increase Outcome: Progressing Problem: Treatment compliance Goal: Take prescribed medication(s) Outcome: Not Progressing Problem: Lack of insight Goal: Recognize defense mechanisms Description: Name 3 defense mechanisms that you use Outcome: Not Progressing 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 * Plan of Care - Gretel Becerra RN - 02/06/2022 5:22 AM CST Goals: Clinical Goals for the Shift: see her boyfriend in her dreams Summary: Problem: Lack of Knowledge: Goal: Verbalization of understanding the information provided will improve Outcome: Progressing Problem: Coping: Goal: Ability to verbalize frustrations and anger appropriately will improve Outcome: Progressing Goal: Ability to demonstrate self-control will improve Outcome: Progressing 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 * Plan of Care - Sheree Webb RN - 02/05/2022 12:48 PM CST Goals: None verbalized. Summary: 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 * Medical Student - Yamilex Null - 02/05/2022 10:55 AM CST Psychiatry Progress Note Interval History: Stephanie is a 21 y/o female with bipolar disorder here in a current state of eladio. Since our team last saw her, Stephanie was reportedly calling 911 multiple times resulting in a visit from [facility]. Stephanie's phone access has since been restricted. She also had an episode of inconsolable sobbing with delusions that was resolved with PO Haldol 5 mg and Ativan 2mg. Overall, she had fewer episodes ofconfusion and aggression than in previous days and has been reacting to her situation with sadness.Stephanie was compliant with her meds. She received a second dose of Thorazine for hiccups, Tylenol for bilateral buttocks pain (from her injections), and Tums PRN. Her LFTs, amylase, and lipase were normal. Overnight, Stephanie awoke at 3:55 AM complaining of anxiety. Nursing gave her Ativan 2mg PO, and she slept the remainder of the night. This morning, Stephanie reported that her mood was great. Fatou tired because I just woke up. She issignificantly more reasonable, calm, and cooperative than in previous days. She reports she has noanger and that her sadness comes in waves . She believes the Ativan is helping and the injectionsare working. She is still refusing to accept her 96-hour hold as truth and states she is here voluntarily and would like to leave today. Her delusions regarding Aiden Olivera and Perfecto Williamson are still strong. Today, she added that Aiden will be picking her up in [place] with his private jet to go to his show in [facility]. She is currently denying SI, HI, and AVH. Her hiccups have resolved. I updated Stephanie's mother, Lu, as requested about her progress today. Her mother reported that Stephanie called her maternal aunt who is copy supervisor to come pick her up and then incessantly called Lu. Contrary to Stephanie's narrative, her parents did not visit last night. Medications: ARIPiprazole lauroxil, 882 mg, intramuscular, Q30 Days nicotine, 1 patch, transdermal, Daily PRN Medications Medication Dose Route Frequency Last Admin acetaminophen (TYLENOL) tablet 500 mg 500 mg oral Q6H PRN 500 mg at 02/04/22 1738 calcium carbonate (TUMS) chewable tablet 500 mg 500 mg oral TID PRN 500 mg at 02/04/22 1818 droperidoL (INAPSINE) injection 5 mg 5 mg intramuscular Q6H PRN 5 mg at 02/04/22 0042 And LORazepam (ATIVAN) injection 2 mg 2 mg intramuscular Q6H PRN 2 mg at 02/04/22 0042 haloperidoL (HALDOL) tablet 5 mg 5 mg oral Q4H PRN 5 mg at 02/04/222017 LORazepam (ATIVAN) tablet 2 mg 2 mg oral Q4H PRN 2 mg at 02/05/22 0354 nicotine polacrilex (NICORETTE) gum 2 mg 2 mg mouth/throat Q1H PRN 2 mg at 02/03/22 1418 ondansetron ODT (ZOFRAN-ODT) disintegrating tablet 4 mg 4 mg oral Q4H PRN 4 mg at 02/03/22 1657 traZODone (DESYREL) tablet 100 mg 100 mg oral Nightly PRN 100 mg at 02/03/222004 Medication Compliance: Compliant Physical Exam: Vitals: 02/05/22 0700 BP: 111/72 Pulse: 78 Resp: 18 Temp: 36.3 ??C (97.4 ??F) SpO2: 98% Total Hours of Sleep: 5.4 Mental Status Exam: 1. General appearance and behavior: appears stated age, normal psychomotor activity, good eye contact, cooperative, and sleepy 2. Speech: regular, regular , normal , normal, and normal 3. Flow of thought: logical, sequential, goal-directed 4. Content of thought: delusions of Aiden olivera as fiance who is picking her up via private jet to attend his show tonight, she is here voluntarily and being held illegally, and that perfecto williamson isher paternal great grandfather 5. Mood: great. Fatou tired 6. Affect: irritable and restricted by fatigue 7. Insight: poor 8. Judgement: fair 9. Sensorium: alert and oriented x 4 Lab/Radiology/Diagnostic Review: Laboratory review: Lab results in the last 24 hours: Recent Results (from the past 24 hour(s)) Hepatic function panel Collection Time: 02/04/22 2:54 PM Result Value Ref Range Bilirubin, total 0.4 0.1 - 1.2 mg/dL Bilirubin, direct <0.2 0.1 - 0.3 mg/dL Protein, pl 6.7 6.5 - 8.5 g/dL Albumin 4.3 3.5 - 5.0 g/dL Alk phos 77 40 - 130 Units/L ALT 14 7 - 45 Units/L AST 29 10 - 45 Units/L Amylase Collection Time: 02/04/22 2:54 PM Result Value Ref Range Amylase 71 30 - 99 Units/L Lipase Collection Time: 02/04/22 2:54 PM Result Value Ref Range Lipase 18 10 - 99 Units/L PRIMARY DIAGNOSIS: Bipolar affective disorder, current episode manic with psychotic symptoms (CMS/HCC) (HCC) Assessment: Stephanie is currently experiencing a manic episode. She has been diagnosed with MDD, JOHN, ADHD in the[facility] and was medicated for these conditions. With her current manic symptoms, we believe that bipolar disorder is a more accurate diagnosis and will treat her with Ability (initio loading dose). She received the Initio loading dose two days ago and has significantly improved since then, however, she is still not stable for discharge. Plan: -96 hour hold to 02/05/2022 at 20:49 (with weekends - will be eligible to discharge potentially on Tuesday02/08/2022). Will discuss with Lu and Colten prior to discharge. -Abilify 20 mg PO with Initio loading and maintenance 882mg monthly with emla given yesterday 02/04/2022 - Nicotine gum and Nicotine patch -PRN medications: Ativan (changed from Atarax), trazodone, tylenol, zyprexa, tums -Daily updates for Dad: Colten Coates and Mom: Lu Yamilex Null, MS3 Cosigned by Simi Rodriguez MD at 02/08/2022 1:31 PM PROC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 * Plan of Care - Tasia Davis RN - 02/05/2022 2:14 AM PROC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 Goals: Problem: Activity: Goal: Interest or engagement in leisure activities will improve Outcome: Progressing Goal: Sleeping patterns will improve Outcome: Progressing Problem: Health Behavior: Goal: Compliance with treatment plan for underlying cause of condition will improve Outcome: Progressing 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 * Medical Student - Yamilex Null - 02/04/2022 1:29 PM CST Psychiatry Progress Note Interval History: Stephanie is a 21 y/o F with bipolar disorder here in a current state of eladio. Yesterday, Stephanie's parents came to see her. Mom reports it was a more normal interaction until she brought up wanting to leave at which point Stephanie became tearful and angry. Overnight, Stephanie initially fell asleep with Trazodone and awoke around midnight complaining of headache, nausea, heartburn, and anxiety. She was given Zofran, Tums, Atarax, and tylenol. She then proceeded to become aggressive with staff, was entering patients' rooms, and attempting to start a movement to get out of this place . With other patients promising to defend her , back up security was called, and Stephanie was by moving to the third floor. Stephanie refused to go to her new room, became agitated, andspit on a nurse. After refusal of PO agitation meds, she was put in a safe hold and given Ativan and Droperidol IM. She then fell asleep for a total of 7 hours. This morning, Stephanie has had a waxing and waning of insight. At around 8:30 AM, she was able to accurately tell what happened the previous night and expressed remorse. However, later, around 11:30, Stephanie was no longer remembering the event correctly and was exhibiting high external locus of control and no remorse. Another demonstration of insight occurred when Stephanie expressed sadness that she has been misdiagnosed in the past and has been dealing with the consequences of having undiagnosed bipolar for so long. She also was able to express that her friend, Sarah, pointed out her bipolar-like symptoms over a year ago. She was more tearful today and less quick to anger. Stephanie's delusions persist with more questioning required to elucidate them. For example, when asked about Aiden Olivera today, she responded that he was her friend initially and then, with further questioning and prompting, changed their apparent relationship to getting . This is different than in previous days when she immediately responded that Aiden is her . She is still claimingPerfecto Williamson is her paternal great great grandfather and does not see the harm in her spending habits prior to admission. Stephanie complains of hiccups that lasted all night and are now causing her chest to ache. She believes a nurse is causing them. This issue was resolved with PO Thorazine. Stephanie is still no accepting her 96 hour hold as truth and her goal for the day is to leave . She has no SI, HI, or ACH at this time. She reported her mood as really good; anxious to leave; more clear headed, less mad . Stephanie's parents, Colten and Lu, were updated and expressed that they wish for her to be admitted as long as it takes to ensure their family's and Stephanie's safety. Lu would like Stephanie to see a [facility] psychiatrist for follow up. Medication change: Switching Atarax to Ativan to promote sleep. However, if Stephanie becomes problematically disinhibited, we will reconsider. Medications: ARIPiprazole lauroxil, 882 mg, intramuscular, Q30 Days nicotine, 1 patch, transdermal, Daily PRN Medications Medication Dose Route Frequency Last Admin acetaminophen (TYLENOL) tablet 500 mg 500 mg oral Q6H PRN 500 mg at 02/04/22 0829 calcium carbonate (TUMS) chewable tablet 500 mg 500 mg oral Q2H PRN 500 mg at 02/04/22 1315 droperidoL (INAPSINE) injection 5 mg 5 mg intramuscular Q6H PRN 5 mg at 02/04/22 0042 And LORazepam (ATIVAN) injection 2 mg 2 mg intramuscular Q6H PRN 2 mg at 02/04/22 004 haloperidoL (HALDOL) tablet 5 mg 5 mg oral Q4H PRN 5 mg at 02/03/222003 LORazepam (ATIVAN) tablet 2 mg 2 mg oral Q4H PRN 2 mg at 02/04/22 0949 nicotine polacrilex (NICORETTE) gum 2 mg 2 mg mouth/throat Q1H PRN 2 mg at 02/03/22 1418 ondansetron ODT (ZOFRAN-ODT) disintegrating tablet 4 mg 4 mg oral Q4H PRN 4 mg at 02/03/22 1657 traZODone (DESYREL) tablet 100 mg 100 mg oral Nightly PRN 100 mg at 02/03/222004 Medication Compliance: Compliant with active counseling Physical Exam: Vitals: 02/04/22 0935 BP: 99/49 Pulse: 112 Resp: 17 Temp: 36.2 ??C (97.1 ??F) SpO2: 100% Total Hours of Sleep: 5.4 Mental Status Exam: 1. General appearance and behavior: appears stated age, normal psychomotor activity, good eye contact, cooperative, confrontational , and easily irritated, tearful 2. Speech: regular, regular , normal , normal, and normal -significant improvement from days prior 3. Flow of thought: logical, sequential, goal-directed 4. Content of thought: delusions : to aiden olivera, related to [employer] and referentialthinking the [employer] movie was about her. The books in the [employer] are about her 5. Mood: Really good. Anxious to leave 6. Affect: euthymic, irritable, labile, and tearful 7. Insight: poor 8. Judgement: poor 9. Sensorium: alert and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 STAT 02/01/2022 10:37 AM PROCESS EXCELLENCE MANAGER CBC WITH AUTO DIFFERENTIAL STAT 02/01/2022 10:37 AM PROCESS EXCELLENCE MANAGER ETHANOL STAT 02/01/2022 10:37 AM PROCESS EXCELLENCE MANAGER LIPID PANEL STAT 02/01/2022 10:37 AM PROCESS EXCELLENCE MANAGER COMPREHENSIVE METABOLIC PANEL STAT 02/01/2022 10:37 AM PROCESS EXCELLENCE MANAGER [place] CRITICAL CARE ILL/INJURED PATIENT INIT 30-74 MIN Routine 02/01/2022 8:06 AM PROCESS EXCELLENCE MANAGER documented in this encounter Results * Lipase (02/04/2022 2:54 PM PROCESS EXCELLENCE MANAGER) Pathologist [facility] Lipase 18 10 - 99 Units/L [facility] Blood 02/04/2022 2:54 PM PROCESS EXCELLENCE MANAGER 02/05/2022 7:29 AM PROCESS EXCELLENCE MANAGER Simi Rodriguez MD LAB BLOOD ORDERABLES Final R esult Performing Organization Address City/[facility] Co de Phone Number [facility] Department [place] [address] * Amylase (02/04/2022 2:54 PM PROCESS EXCELLENCE MANAGER) Pathologist [facility] Amylase 71 30 - 99 Units/L [facility] Blood 02/04/2022 2:54 PM PROCESS EXCELLENCE MANAGER 02/05/2022 7:29 AM PROCESS EXCELLENCE MANAGER iSmi Rodriguez MD LAB BLOOD ORDERABLES Final R esult Performing Organization Address City/[facility] Co de Phone Number [facility] [place] [employer] [place] [address] * Hepatic function panel (02/04/2022 2:54 PM PROCESS EXCELLENCE MANAGER) Pathologist [facility] Bilirubin, total 0.4 0.1 - 1.2 mg/dL [facility] Bilirubin, direct <0.2 0.1 - 0.3 mg/dL [facility] Protein, pl 6.7 6.5 - 8.5 g/dL [facility] Albumin 4.3 3.5 - 5.0 g/dL [facility] Alk phos 77 40 - 130 Units/L [facility] ALT 14 7 - 45 Units/L [facility] AST 29 10 - 45 Units/L [facility] Blood 02/04/2022 2:54 PM PROCESS EXCELLENCE MANAGER 02/05/2022 7:29 AM PROCESS EXCELLENCE MANAGER Simi Rodriguez MD LAB BLOOD ORDERABLES Final R esult Performing Organization Address [facility] Co de Phone Number [facility] [place] [address] * POCT hCG, urine (02/01/2022 3:34 PM PROCESS EXCELLENCE MANAGER) HCG, ur, POC Negative Lot Number [id number] QC Backgroud Clear Acceptable QC Control Line Acceptable Urine 02/01/2022 3:34 PM PROCESS EXCELLENCE MANAGER Prakash Baumann MD POINT OF CARE TEST ORDERABLES Final Result * (ABNORMAL) Urinalysis, microscopic only (02/01/2022 3:31 PM PROCESS EXCELLENCE MANAGER) WBC, ur 6-10(A) 0 - 5 /HPF [facility] RBC, ur 21-50(A) 0 - 2 /HPF [facility] Epithelial cells, squamous, ur 11-20(A) 0 - 5 /HPF [facility] Comment:Suggestive of contam ination. Consider recollection by clean catch. Mucous, ur Present(A ) [facility] Urine 02/01/2022 3:31 PM PROCESS EXCELLENCE MANAGER 02/01/2022 3:35 PM PROCESS EXCELLENCE MANAGER Prakash Baumann MD LAB URINE ORDERABLES Final Re sult Performing Organization Address [facility] Co de Phone Number [facility] Department [place] [address] * (ABNORMAL) Urinalysis reflex to microscopic (02/01/2022 3:31 PM PROCESS EXCELLENCE MANAGER) Color, ur Yellow Yellow [facility] Clarity, ur Cloudy(A) Clear [facility] Specific gravity, ur 1.016 1.003 - 1.030 [facility] pH, urine 7.0 [facility] Protein, ur ql Trace Negative [facility] Glucose, ur ql Negative Negative [facility] Ketones, ur Negative Negative [facility] Bilirubin, ur Negative Negative [facility] Blood, ur 2+(A) Negative [facility] Urobilinogen, ur <2.0 <2.0 mg/dL [facility] Nitrite, ur Negative Negative [facility] Leukocyte esterase, ur Negative Negative [facility] UA reflex comment Reflex to microscopic UA will be performed. [facility] Urine 02/01/2022 3:31 PM PROCESS EXCELLENCE MANAGER 02/01/2022 3:35 PM PROCESS EXCELLENCE MANAGER Narrative [facility] - 02/01/2022 4:03 PM PROCESS EXCELLENCE MANAGER ?? Urine pH is affected by diet, medications, systemic acid-base disturbances, and renal tubular function. ??pH may affect urinary stone formation. ??For example, urine pH below 6.0 may help reduce the tendency for calcium phosphate stones and pH greater than 6.0 may reduce the tendency for uric acid stone formation. Source: [facility] [employer]. Last revised 04-07-2017 us Prakash Baumann MD LAB URINE ORDERABLES Final Re sult [facility] Department [place] [address] * (ABNORMAL) Drugs of Abuse Screen, Urine without Confirmation (02/01/2022 3:31 PM PROCESS EXCELLENCE MANAGER) Amphetamine, ur Not Detected CutOff 500ng/mL [facility] Comment: Interpretive Data - Amphetamines: ??Samples containing greater than 500 ng/mL d-methamphetamine ??or other cross-reacting amphetamine compounds are reported as positive. ??Amphetamine immunoassays are subject to significant false positive rates due to cross-reactivity of non-amphetamine drugs. Current Interpretive Data was last reviewed 2018. Barbiturates, ur Not Detected CutOff 200ng/mL [facility] Comment: Interpretive Data - Barbiturates: ??Samples containing greater than 200 ng/mL secobarbital or other cross-reacting barbiturate compounds are reported as positive. ??False positive and false negative results are possible. Current Interpretive Data was last reviewed 2018. Benzodiazepines, ur Not Detected CutOff 100ng/mL [facility] Comment: Interpretive Data - Benzodiazepines: ??Samples containing greater than 100 ng/mL nordiazepam or other cross-reacting compounds are reported as positive. ?? False positive and false negative results are possible. ?? Current Interpretive Data was last reviewed 2018. Cannabinoids, ur Detected(A) CutOff 50 ng/mL [facility] Cocaine, ur Not Detected CutOff 150ng/mL [facility] Comment: Interpretive Data - Cocaine: ??Samples containing greater than 150 ng/mL benzoylecgonine or other cross-reacting compounds are reported as positive. False positive and false negative results are possible. Current Interpretive Data was last reviewed 2018. Fentanyl, Ur Not Detected Cutoff 1 ng/mL [facility] Comment: Interpretive Data - Fentanyls: ??Samples containing greater than 1 ng/mL fentanyl or other cross-reacting fentanyl compounds are reported as detected. ??False positive and false negative results are possible. Current Interpretive Data was last reviewed 2018. Methadone, ur Not Detected CutOff 300ng/mL [facility] Comment: Interpretive Data - Methadone: ??Samples containing greater than 300 ng/mL d,l-methadone or other cross-reacting compounds are reported as positive. ??False positive and false negative results are possible. Current Interpretive Data was last reviewed 2018. Opiates, ur Not Detected CutOff 300ng/mL [facility] Comment: Interpretive Data - Opiates: ??Samples containing greater than 300 ng/mL morphine or other cross-reacting compounds are reported as positive. ??False positive and false negative results are possible. Current Interpretive Data was last reviewed 2018. Oxycodone, ur Not Detected CutOff 100ng/mL [facility] Comment: Interpretive Data - Oxycodone: ??Samples containing greater than 100 ng/mL oxycodone or other cross-reacting compounds are reported as positive. ??False positive and false negative results are possible. ?? Current Interpretive Data was last reviewed 2018. Phencyclidine, ur Not Detected CutOff 25 ng/mL [facility] Comment: Interpretive Data - Phencyclidine: ??Samples containing greater than 25 ng/mL phencyclidine or other cross-reacting compounds are reported as positive. ??False positive and false negative results are possible. ?? Current Interpretive Data was last reviewed 2018. Urine Creatinine 194 mg/dL [facility] Comment: Interpretive Data Urine Creatinine: < 10 mg/dL is extremely dilute = or > 10 but < 20 mg/dL is dilute = or > 20 mg/dL is normal Current Interpretive Data was last revised on 2017. Urine 02/01/2022 3:31 PM PROCESS EXCELLENCE MANAGER 02/01/2022 3:35 PM PROCESS EXCELLENCE MANAGER Narrative [facility] - 02/01/2022 4:40 PM PROCESS EXCELLENCE MANAGER Drug of Abuse screening is performed by immunoassay for medical purposes only. ??This is not to be used for Pain Management purposes. us Prakash Baumann MD LAB URINE ORDERABLES Final Re sult [facility] Department [place] [address] * Lipid panel (02/01/2022 10:37 AM PROCESS EXCELLENCE MANAGER) Cholesterol 127 30 - 199 mg/dL [facility] Comment: Interpretive Data Ages < or = 19 years ??Acceptable: ? <170 mg/dL ??Borderline high: ??170-199 mg/dL ??High: ? >or= 200 mg/dL Ages > or = 20 years ??Desirable: ?<200 mg/dL ??Borderline high: ??200-239 mg/dL ??High: ? >or= 240 mg/dL Literature References: 1. Expert Panel on Integrated Guidelines for Cardiovascular Health and Risk Reduction in Children and Adolescents. Pediatrics 2011;128:S213 2. NCEP Expert Panel. Circulation 2004;110:227 Current Interpretive Data was last revised on 2017. Triglycerides 30 <=149 mg/dL [facility] Comment: Interpretive Data Ages < or = 9 years ??Acceptable: ? <75 mg/dL ??Borderline high: ??75-99 mg/dL ??High: ? >or= 100 mg/dL Ages 10 to 20 years ??Acceptable: ? <90 mg/dL ??Borderline high: ??90-129 mg/dL ??High: ? >or= 130 mg/dL Ages > or = 20 years ??Desirable: ?<150 mg/dL ??Borderline high: ??150-199 mg/dL ??High: ? 200-499 mg/dL ?Very high: ?? >or= 499 mg/dL Literature References: 1. Expert Panel on Integrated Guidelines for Cardiovascular Health and Risk Reduction in Children and Adolescents. Pediatrics 2011;128:S213 2. NCEP Expert Panel. Circulation 2004;110:227 Current Interpretive Data was last revised on 2017. HDL 58 >=40 mg/dL [facility] Comment: Interpretive Data Ages < or = 19 years ??Acceptable: ? >45 mg/dL ??Borderline low: ?? 40-45 mg/dL ??Low: ? <40 mg/dL Ages > or = 20 years ??Desirable: ?>or= 60 mg/dL ??Low: ? <40 mg/dL Literature References: 1. Expert Panel on Integrated Guidelines for Cardiovascular Health and Risk Reduction in Children and Adolescents. Pediatrics 2011;128:S213 2. NCEP Expert Panel. Circulation 2004;110:227 Current Interpretive Data was last revised on 2017. LDL, calculated 63 <=129 mg/dL [facility] Comment: Interpretive Data Ages < or = 19 years ??Acceptable: ? <110 mg/dL ??Borderline high: ??110-129 mg/dL ??High: ?>or= 130 mg/dL Ages > or = 20 years ??Optimal: ? <100 mg/dL ??Near optimal: ?100-129 mg/dL ??Borderline high: ?? 130-159 mg/dL ??High: ?>160 mg/dL Literature References: 1. Expert Panel on Integrated Guidelines for Cardiovascular Health and Risk Reduction in Children and Adolescents. Pediatrics 2011;128:S213 2. NCEP Expert Panel. Circulation 2004;110:227 Current Interpretive Data was last revised on 2017. Non-HDL Cholesterol 69 mg/dL [facility] Comment: Interpretive Data Ages < or = 19 years ??Acceptable: ?<120 mg/dL ??Borderline high: ??120-144 mg/dL ??High: ?>145 mg/dL Ages > or = 20 years ??When triglycerides are >200 mg/dL, Non-HDL cholesterol is a secondary target of ? therapy with treatment goals that are 30 mg/dL greater than the LDL cholesterol target. ? Literature References: 1. Expert Panel on Integrated Guidelines for Cardiovascular Health and Risk Reduction in Children and Adolescents. Pediatrics 2011;128:S213 2. NCEP Expert Panel. Circulation 2004;110:227 Current Interpretive Data was last revised on 2017. Chol/HDL ratio 2 [facility] Blood 02/01/2022 10:3 7 AM PROCESS EXCELLENCE MANAGER 02/01/2022 10:47 AM PROCESS EXCELLENCE MANAGER us Simi Rodriguez MD LAB BLOOD ORDERABLES Final R esult [facility] [address] [facility] [address] Department [place] [address] * eGFR (02/01/2022 10:37 AM PROCESS EXCELLENCE MANAGER) eGFR >90 90 - 130 mL/min/1. 73 m2 [facility] Comment: Interpretive Data Reference Interval Normal ?>/= [...] interpretive data was last reviewed 2021. Blood 02/01/2022 10:3 7 AM PROCESS EXCELLENCE MANAGER 02/01/2022 10:47 AM PROCESS EXCELLENCE MANAGER Prakash Baumann MD LAB BLOOD ORDERABLES Final Re sult [facility] [address] [facility] Department [place] [address] * (ABNORMAL) Differential, auto (02/01/2022 10:37 AM PROCESS EXCELLENCE MANAGER) Neutrophil abs 3.7 1.7 - 6.5 K/cumm [facility] Imm gran abs 0.0 0.0 - 0.1 K/cumm [facility] Lymphocyte abs 3.8(H) 0.8 - 3.3 K/cumm [facility] Monocyte abs 0.7 0.2 - 0.8 K/cumm [facility] Eosinophil abs 0.1 0.0 - 0.5 K/cumm [facility] Basophil abs 0.1 0.0 - 0.1 K/cumm [facility] Neutrophil pct 44.0 % [facility] Comment: Interpretive Data Percent cell count reference ranges are not reported, since discordance with absolute values may lead to misinterpretation of CBC data. Current Interpretive Data was last revised on 2017. Imm gran pct 0.5 % [facility] Comment: Interpretive Data Percent cell count reference ranges are not reported, since discordance with absolute values may lead to misinterpretation of CBC data. Current Interpretive Data was last revised on 2017. Lymphocyte pct 45.6 % [facility] Comment: Interpretive Data Percent cell count reference ranges are not reported, since discordance with absolute values may lead to misinterpretation of CBC data. Current Interpretive Data was last revised on 2017. Monocyte pct 8.1 % [facility] Comment: Interpretive Data Percent cell count reference ranges are not reported, since discordance with absolute values may lead to misinterpretation of CBC data. Current Interpretive Data was last revised on 2017. Eosinophil pct 1.1 % [facility] Comment: Interpretive Data Percent cell count reference ranges are not reported, since discordance with absolute values may lead to misinterpretation of CBC data. Current Interpretive Data was last revised on 2017. Basophil pct 0.7 % [facility] Comment: Interpretive Data Percent cell count reference ranges are not reported, since discordance with absolute values may lead to misinterpretation of CBC data. Current Interpretive Data was last revised on 2017. Blood 02/01/2022 10:3 7 AM PROCESS EXCELLENCE MANAGER 02/01/2022 10:44 AM PROCESS EXCELLENCE MANAGER Prakash Baumann MD LAB BLOOD ORDERABLES Final Re sult [facility] [address] [facility] Department [place] [address] * COVID-19 Coronavirus RNA Nasopharyngeal (02/01/2022 10:37 AM PROCESS EXCELLENCE MANAGER) COVID-19 RNA Negative Negative [facility] Nasopharyngeal 02/01/2022 10 :37 AM PROCESS EXCELLENCE MANAGER 02/01/2022 10:48 AM PROCESS EXCELLENCE MANAGER Narrative [facility] - 02/01/2022 11:34 AM PROCESS EXCELLENCE MANAGER Is the patient experiencing any symptoms consistent with COVID (eg. Fever, cough, shortness of breath)?->No What is the reason for testing?->Screening prior to admission to behavioral health unit??(Rapid) ??Interpretive data: Synonyms for this test include: PCR and NAAT . ??This test is performed using the [employer] Xpert Xpress plus assay. This is a [...] . ??This test is performed using the [employer] Xpert Xpress plus assay. This is a [...] Interpretive data last revised August 26, 2021. Prakash Baumann MD LAB MICROBIOLOGY - GENERAL OR DERABLES Final Result [facility] Department of [employer] [place], [place] [id number] * TSH reflex to free T4 (02/01/2022 10:37 AM PROCESS EXCELLENCE MANAGER) Pathologist [facility] TSH 0.59 0.30 - 4.20 mcIUnit/mL [facility] Blood 02/01/2022 10:3 7 AM PROCESS EXCELLENCE MANAGER 02/01/2022 10:44 AM PROCESS EXCELLENCE MANAGER Prakash Baumann MD LAB BLOOD ORDERABLES Final Re sult [facility] [place] [address] * Comprehensive metabolic panel (02/01/2022 10:37 AM PROCESS EXCELLENCE MANAGER) Sodium 140 135 - 145 mmol/L [facility] Potassium, pl 3.5 3.3 - 4.9 mmol/L [facility] Chloride 104 97 - 110 mmol/L [facility] CO2 29 22 - 32 mmol/L [facility] Anion gap 7 2 - 15 mmol/L [facility] BUN 8 8 - 25 mg/dL [facility] Creatinine 0.76 0.60 - 1.10 mg/dL [facility] Glucose 88 70 - 199 mg/dL [facility] Comment: Interpretive Data Fasting glucose >/= [...] interpretive data was last revised 2017. Calcium 9.3 8.5 - 10.3 mg/dL [facility] Bilirubin, total 0.5 0.1 - 1.2 mg/dL [facility] Protein, pl 6.9 6.5 - 8.5 g/dL [facility] Albumin 4.6 3.5 - 5.0 g/dL [facility] Alk phos 78 40 - 130 Units/L [facility] ALT 14 7 - 45 Units/L [facility] AST 21 10 - 45 Units/L [facility] Blood 02/01/2022 10:3 7 AM PROCESS EXCELLENCE MANAGER 02/01/2022 10:44 AM PROCESS EXCELLENCE MANAGER us Prakash Baumann MD LAB BLOOD ORDERABLES Final Re sult [facility] [address] [facility] Department [place] [address] * CBC with auto differential (02/01/2022 10:37 AM PROCESS EXCELLENCE MANAGER) WBC 8.4 3.8 - 9.9 K/cumm [facility] Hgb 12.9 11.9 - 15.5 g/dL [facility] Hct 37.3 35.6 - 45.5 % [facility] Plt 341 150 - 400 K/cumm [facility] MPV 9.4 9.1 - 12.3 fL [facility] RBC 4.10 3.90 - 5.20 M/cumm [facility] MCV 91.0 81.3 - 96.4 fL [facility] MCH 31.5 27.1 - 33.3 pg [facility] MCHC 34.6 32.3 - 35.7 g/dL [facility] RDW CV 12.3 11.1 - 14.9 % [facility] RDW SD 40.6 35.7 - 48.1 fL [facility] NRBC abs 0.00 0.00 - 0.01 K/cumm [facility] Blood (Blood, Venous) 02/01/2022 10:37 AM PROCESS EXCELLENCE MANAGER 02/01/2022 10:44 AM PROCESS EXCELLENCE MANAGER Prakash Baumann MD LAB BLOOD ORDERABLES Final Re sult Performing Organization Address [facility] Co de Phone Number [facility] Department [place] [address] * Ethanol (02/01/2022 10:37 AM PROCESS EXCELLENCE MANAGER) Ethanol <10 <=10 mg/dL [facility] Comment: Interpretive Data Legal limit of intoxication > or = 80 mg/dL Levels > or = 400 mg/dL are potentially TOXIC. Current interpretive data was last revised on 2018. Blood 02/01/2022 10:3 7 AM PROCESS EXCELLENCE MANAGER 02/01/2022 10:44 AM PROCESS EXCELLENCE MANAGER Prakash Baumann MD LAB BLOOD ORDERABLES Final Re sult Performing Organization Address City/[facility]/ZIP Co de Phone Number [facility] [place] [address] * [place] CRITICAL CARE ILL/INJURED PATIENT INIT 30-74 MIN (02/01/2022 8:06 AM PROCESS EXCELLENCE MANAGER) Narrative Prakash Baumann MD - 02/01/2022 8:06 AM PROCESS EXCELLENCE MANAGER Prakash Baumann MD ? 02/11/2022 ??8:07 AM Critical Care Performed by: Prakash Baumann MD Authorized by: Prakash Baumann MD Critical care provider statement: As reflected in the history, physical exam, orders, notes, and/or MDM, I was personally present while the patient was critically ill and provided critical care services for 30 minutes, excluding time involved in separately billable procedures. ??Critical care was necessary to treat or prevent imminent or life-threatening deterioration of the following condition(s): ?? acute psychotic episode ??Critical care was time spent by me [...] spent time documenting in the medical record. Prakash Baumann MD IN CLINIC/BEDSIDE ORDERABLES Final Result documented in this encounter Visit Diagnoses Diagnosis Bipolar affective disorder, current episode manic with psychotic symptoms (CMS/HCC) (HCC)- Primary Psychosis, unspecified psychosis type (HCC) Cannabis dependence ([facility]) Routine general medical examination at a health care facility documented in this encounter Admitting Diagnoses Diagnosis Eladio (HCC) Bipolar I disorder, single manic episode, unspecified documented in this encounter Administered Medications Inactive Administered Medications - up to 3 most recent administrations Medication Order MAR Action Action Date Dose Rate Site acetaminophen (TYLENOL) tablet 500 mg 500 mg, oral, Every 6 hours PRN, 1st line for pain, Starting on Tue02/02/22 at 0930, Indications: PainIndications:Pain Given 02/16/2022 2:40 PM PROCESS EXCELLENCE MANAGER 500 mg Given 02/16/2022 8:36 AM PROCESS EXCELLENCE MANAGER 500 mg Given 02/15/2022 9:24 PM PROCESS EXCELLENCE MANAGER 500 mg acetaminophen (TYLENOL) tablet 650 mg 650 mg, oral, Every 4 hours PRN, 1st line for pain, Starting on Tue02/01/22 at 2128, Indications: PainIndications:Pain Given 02/01/2022 9:43 PM PROCESS EXCELLENCE MANAGER 650 mg ARIPiprazole (ABILIFY) tablet 20 mg 20 mg, oral, Nightly, First dose on Tue02/02/22 at 2100 Given 02/02/2022 9:27 PM PROCESS EXCELLENCE MANAGER 20 mg ARIPiprazole (ABILIFY) tablet 30 mg 30 mg, oral, Once, On Tue02/03/22 at 1300, For 1 dose Given 02/03/2022 12:41 PM PROCESS EXCELLENCE MANAGER 30 mg ARIPiprazole lauroxil (ARISTADA) intramuscular syringe 882 mg 882 mg, intramuscular, Every 30 days, First dose on Tue02/03/22 at 1300, Gluteal administration only (exception: for doses of 441 mg, can administer via either gluteal or deltoid). Tap syringe 10 times and then shake vigorously with a loose wrist for a minimum of 30 seconds immediately prior to injection., Indications: SchizophreniaIndications:Shawn izophrenia Given 02/03/2022 1:45 PM PROCESS EXCELLENCE MANAGER 882 mg Left Dorsogluteal/[place] ARIPiprazole lauroxil,submicr. (ARISTADA INITIO) intramuscular syringe 675 mg 675 mg, intramuscular, Once, On Tue02/03/22 at 1300, For 1 dose, Gluteal or deltoid administration only. Tap syringe 10 times and then shake vigorously with a loose wrist for a minimum of 30 seconds immediately prior to injection., Indications: SchizophreniaIndications:Shawn izophrenia Given 02/03/2022 1:45 PM PROCESS EXCELLENCE MANAGER 675 mg Right Ventrogluteal calcium carbonate (TUMS) chewable tablet 500 mg 500 mg, oral, Every 2 hours PRN, indigestion, heartburn, Starting on Tue02/03/22 at 1651 Given 02/04/2022 1:15 PM PROCESS EXCELLENCE MANAGER 500 mg Given 02/04/2022 9:28 AM PROCESS EXCELLENCE MANAGER 500 mg Given 02/03/2022 11:54 PM PROCESS EXCELLENCE MANAGER 500 mg calcium carbonate (TUMS) chewable tablet 500 mg 500 mg, oral, 3 times daily PRN, indigestion, heartburn, Starting on Tue02/04/22 at 1545 Given 02/04/2022 6:[address] 500 mg chlorproMAZINE (THORAZINE) tablet 100 mg 100 mg, oral, 3 times daily, First dose (after last modification) on Tue02/07/22 at 1600 Given 02/16/2022 3:03 PM PROCESS EXCELLENCE MANAGER 100 mg Given 02/16/2022 8:37 AM PROCESS EXCELLENCE MANAGER 100 mg Given 02/15/2022 9:24 PM PROCESS EXCELLENCE MANAGER 100 mg chlorproMAZINE (THORAZINE) tablet 25 mg 25 mg, oral, Once, On Oanh 02/04/22 at 1115, For 1 dose Given 02/04/2022 10:57 AM PROCESS EXCELLENCE MANAGER 25 mg chlorproMAZINE (THORAZINE) tablet 25 mg 25 mg, oral, Once, On Oanh 02/04/22 at 1445, For 1 dose Given 02/04/2022 2:47 PM PROCESS EXCELLENCE MANAGER 25 mg chlorproMAZINE (THORAZINE) tablet 50 mg 50 mg, oral, 3 times daily, First dose (after last modification) on [facility] 02/06/22 at 1600 Given 02/07/2022 8:13 AM PROCESS EXCELLENCE MANAGER 5 0 mg Given 02/06/2022 8:02 PM PROCESS EXCELLENCE MANAGER 50 mg Given 02/06/2022 5:12 PM PROCESS EXCELLENCE MANAGER 50 mg droperidoL (INAPSINE) injection 5 mg 5 mg, intramuscular, Administer over 5 Minutes, Every 6 hours PRN, other, severe agitation, Starting on Tue02/02/22 at 1336 Given 02/04/2022 12:42 AM PROCESS EXCELLENCE MANAGER 5 mg Left Deltoid Given 02/02/2022 8:28 PM PROCESS EXCELLENCE MANAGER 5 mg Ri ght Deltoid haloperidoL (HALDOL) tablet 5 mg 5 mg, oral, Every 4 hours PRN, agitation, Starting on Tue02/02/22 at 1337 Given 02/06/2022 9:44 PM PROCESS EXCELLENCE MANAGER 5 mg Given 02/06/2022 1:18 PM PROCESS EXCELLENCE MANAGER 5 mg Given 02/05/2022 9:22 PM PROCESS EXCELLENCE MANAGER 5 mg hydrOXYzine (ATARAX) tablet 10 mg 10 mg, oral, Every 4 hours PRN, anxiety, Starting on Tue02/02/22 at 0921 Given 02/04/2022 8:29 AM PROCESS EXCELLENCE MANAGER 10 mg Given 02/03/2022 11:54 PM PROCESS EXCELLENCE MANAGER 10 mg Given 02/03/2022 5:40 PM PROCESS EXCELLENCE MANAGER 10 mg lidocaine-prilocaine (EMLA) 2.5-2.5 % cream topical, Once, On Tue02/03/22 at 1300, For 1 dose, Apply to bilateral injection sites 20 minutes prior to initio and aristada injections, Apply to affected area: other, Indications: Administration of Local AnesthesiaIndications:Administration of Local Anesthesia Given 02/03/2022 1:45 PM PROCESS EXCELLENCE MANAGER loperamide (IMODIUM) capsule 2 mg 2 mg, oral, 3 times daily PRN, diarrhea, Starting on Tue02/09/22 at 0930, Maximum recommended dose 16 mg/day Given 02/11/2022 3:14 AM PROCESS EXCELLENCE MANAGER 2 mg Given 02/10/2022 9:10 PM PROCESS EXCELLENCE MANAGER 2 mg Given 02/10/2022 4:26 PM PROCESS EXCELLENCE MANAGER 2 mg loperamide (IMODIUM) capsule 2 mg 2 mg, oral, 2 times daily PRN, diarrhea, Starting on Tue02/11/22 at 1145, Maximum recommended dose 16 mg/day LORazepam (ATIVAN) injection 2 mg 2 mg, intramuscular, Every 6 hours PRN, other, severe agitation, Starting on Tue02/02/22 at 1337, For IV administration, dilute with equal volume of 0.9% sodium chloride to a final concentration of 1 mg/mL. Do not exceed a rate of 2 mg/minute Given 02/04/2022 12:42 AM PROCESS EXCELLENCE MANAGER 2 mg Left Deltoid Given 02/02/2022 8:28 PM PROCESS EXCELLENCE MANAGER 2 mg Ri ght Deltoid LORazepam (ATIVAN) tablet 0.5 mg 0.5 mg, oral, Every 4 hours PRN, anxiety, Starting on Tue02/15/22 at 1214 Given 02/16/2022 2:40 PM PROCESS EXCELLENCE MANAGER 0.5 mg Given 02/16/2022 3:23 AM PROCESS EXCELLENCE MANAGER 0.5 mg Given 02/15/2022 7:00 PM PROCESS EXCELLENCE MANAGER 0.5 mg LORazepam (ATIVAN) tablet 1 mg 1 mg, oral, Every 4 hours PRN, anxiety, Starting on Tue02/08/22 at 1135 Given 02/15/2022 12:02 PM PROCESS EXCELLENCE MANAGER 1 mg Given 02/14/2022 11:22 PM PROCESS EXCELLENCE MANAGER 1 mg Given 02/14/2022 1:10 PM PROCESS EXCELLENCE MANAGER 1 mg LORazepam (ATIVAN) tablet 2 mg 2 mg, oral, Once, On Tue02/03/22 at 1300, For 1 dose Given 02/03/2022 12:41 PM PROCESS EXCELLENCE MANAGER 2 mg LORazepam (ATIVAN) tablet 2 mg 2 mg, oral, Every 4 hours PRN, anxiety, Starting on Oanh 02/04/22 at 0933 Given 02/07/2022 8:22 PM PROCESS EXCELLENCE MANAGER 2 mg Given 02/07/2022 11:15 AM PROCESS EXCELLENCE MANAGER 2 mg Given 02/06/2022 1:18 PM PROCESS EXCELLENCE MANAGER 2 mg nicotine (NICODERM CQ) 14 mg patch 24 hour 1 patch 1 patch, transdermal, Administer over 24 Hours, Daily, First dose on Tue02/02/22 at 1215, Apply a new patch every 24 hours to a clean, dry, hairless site on the upper arm or hip. Rotate site. Medication Applied 02/16/2022 8:38 AM PROCESS EXCELLENCE MANAGER 1 patch Left Arm Medication Applied 02/15/2022 8:02 AM PROCESS EXCELLENCE MANAGER 1 patch Right Arm Medication Applied 02/14/2022 8:58 AM PROCESS EXCELLENCE MANAGER 1 patch Left Arm nicotine (NICODERM CQ) 21 mg patch 24 hour 1 patch 1 patch, transdermal, Administer over 24 Hours, Daily, First dose on Tue02/01/22 at 1034, Apply a new patch every 24 hours to a clean, dry, hairless site on the upper arm or hip. Rotate site. Medication Applied 02/01/2022 3:41 PM PROCESS EXCELLENCE MANAGER 1 patch Right Shoulder nicotine polacrilex (NICORETTE) gum 2 mg 2 mg, mouth/throat, Every 1 hour PRN, nicotine withdrawal symptoms, Starting on Tue02/01/22 at 2128, Instruct patients to chew into gum and then place between the cheek and gum to enhance absorption. Given 02/16/2022 1:03 PM PROCESS EXCELLENCE MANAGER 2 mg Given 02/16/2022 8:39 AM PROCESS EXCELLENCE MANAGER 2 mg Given 02/15/2022 8:07 AM PROCESS EXCELLENCE MANAGER 2 mg OLANZapine (ZyPREXA ZYDIS) disintegrating tablet 10 mg 10 mg, oral, Every 6 hours PRN, agitation, Starting on Tue02/01/22 at 2128, Max dose 40 mg/24 hrs. Given 02/02/2022 12:05 PM PROCESS EXCELLENCE MANAGER 10 mg Given 02/01/2022 10:39 PM PROCESS EXCELLENCE MANAGER 10 mg OLANZapine (ZyPREXA) injection 10 mg 10 mg, intramuscular, Every 6 hours PRN, other, severe agitation clinically emergent, Starting on Tue02/01/22 at 2128, Max 30 mg/24 hours. Do not administer with IV or IM benzodiazepines. Reconstitute 10 mg vial with 2.1 mL SWFI. Resulting solution is ~5 mg/mL. Use immediately (within 1 hour) following reconstitution. Given 02/02/2022 1:00 PM PROCESS EXCELLENCE MANAGER 10 mg Right Deltoid ondansetron ODT (ZOFRAN-ODT) disintegrating tablet 4 mg 4 mg, oral, Every 4 hours PRN, nausea, vomiting, Starting on Tue02/03/22 at 1650 Given 02/03/2022 4:57 PM PROCESS EXCELLENCE MANAGER 4 mg risperiDONE (RisperDAL) tablet 1 mg 1 mg, oral, 2 times daily, First dose on Tue02/01/22 at 1456 Given 02/02/2022 8:17 AM PROCESS EXCELLENCE MANAGER 1 mg Given 02/01/2022 9:42 PM PROCESS EXCELLENCE MANAGER 1 mg Given 02/01/2022 3:43 PM PROCESS EXCELLENCE MANAGER 1 mg sodium chloride (OCEAN) 0.65 % nasal spray 2 spray 2 spray, each nostril, Every 2 hours PRN, rhinitis, Starting on Tue02/09/22 at 0934 Given 02/15/2022 9:24 P M PROCESS EXCELLENCE MANAGER 2 sprays Given 02/15/2022 4:21 AM PROCESS EXCELLENCE MANAGER 2 sprays Given 02/14/2022 1:00 AM PROCESS EXCELLENCE MANAGER 2 sprays traZODone (DESYREL) tablet 100 mg 100 mg, oral, Nightly PRN, sleep, Starting on Tue02/02/22 at 0921 Given 02/15/2022 12:31 AM PROCESS EXCELLENCE MANAGER 100 mg Given 02/13/2022 11:13 PM PROCESS EXCELLENCE MANAGER 100 mg Given 02/12/2022 11:56 PM PROCESS EXCELLENCE MANAGER 100 mg documented in this encounter Active and Recently Administered Medications Times are shown in PROCESS EXCELLENCE MANAGER. Scheduled Medication Order 02/14/2022 02/15/2022 02/16/2022 ARIPiprazole lauroxil (ARISTADA) intramuscular syringe 882 mg(Linked Group 1) 882 mg, intramuscular, Every 30 days, First dose on Tue02/03/22 at 1300, Gluteal administration only (exception: for doses of 441 mg, can administer via either gluteal or deltoid). Tap syringe 10 times and then shake vigorously with a loose wrist for a minimum of 30 seconds immediately prior to injection., Indications: Schizophrenia chlorproMAZINE (THORAZINE) tablet 100 mg 100 mg, oral, 3 times daily, First dose (after last modification) on Tue02/07/22 at 1600 0856 (Given - Provider: Jose Conti RN)1533 (Given - Provider: Jose Conti RN)2144 (Given - Provider: Gretta Rodriguez RN) 0802 (Given - Provider: Giovanny Benoit, SAGAR)1541 (Given - Provider: Giovanny Benoit RN)2124 (Given - Provider: Gretta Rodriguez RN) 0837 (Given - Provider: Chanel Bob RN)1503 (Given - Provider: Chanel Bob RN) nicotine (NICODERM CQ) 14 mg patch 24 hour 1 patch 1 patch, transdermal, Administer over 24 Hours, Daily, First dose on Tue02/02/22 at 1215, Apply a new patch every 24 hours to a clean, dry, hairless site on the upper arm or hip. Rotate site. 0855 (Medication Removed - Provider: Jose Conti RN - Comment: removed from right arm)0858 (Medication Applied - Provider: Jose Conti RN) 0802 (Medication Applied - Provider: Giovanny Benoit RN) 0837 (Medication Removed - Provider: Chanel Bob RN)0838 (Medication Applied - Provider: Chanel Bob RN)1525 (Due: Medication Removed - Provider: Automatic Discharge Provider - Comment: Time automatically adjusted from order being discontinued) PRN Medication Order 02/14/2022 02/15/2022 02/16/2022 acetaminophen (TYLENOL) tablet 500 mg 500 mg, oral, Every 6 hours PRN, 1st line for pain, Starting on Tue02/02/22 at 0930, Indications: Pain 0221 (Return to Cabinet - Provider: Ashwini Lowry RN)1221 (Given - Provider: Jose Conti RN) 0802 (Given - Provider: Giovanny Benoit RN)1457 (Given - Provider: Giovanny Benoit, SAGAR)1458 (Not Given - Provider: Giovanny Benoit RN - Reason: Other - Comment: duplicate order from [facility])212 (Given - Provider: Gretta Rodriguez RN) 0836 (Given - Provider: Chanel oBb RN)1440 (Given - Provider: Chanel Bob RN) calcium carbonate (TUMS) chewable tablet 500 mg 500 mg, oral, 3 times daily PRN, indigestion, heartburn, Starting on Tue02/04/22 at 1545 droperidoL (INAPSINE) injection 5 mg(Linked Group 2) 5 mg, intramuscular, Administer over 5 Minutes, Every 6 hours PRN, other, severe agitation, Starting on Tue02/02/22 at 1336 haloperidoL (HALDOL) tablet 5 mg 5 mg, oral, Every 4 hours PRN, agitation, Starting on Tue02/02/22 at 1337 loperamide (IMODIUM) capsule 2 mg 2 mg, oral, 2 times daily PRN, diarrhea, Starting on Tue02/11/22 at 1145, Maximum recommended dose 16 mg/day LORazepam (ATIVAN) injection 2 mg(Linked Group 2) 2 mg, intramuscular, Every 6 hours PRN, other, severe agitation, Starting on Tue02/02/22 at 1337, For IV administration, dilute with equal volume of 0.9% sodium chloride to a final concentration of 1 mg/mL. Do not exceed a rate of 2 mg/minute LORazepam (ATIVAN) tablet 0.5 mg 0.5 mg, oral, Every 4 hours PRN, anxiety, Starting on Tue02/15/22 at 1214 1900 (Given - Provider: Giovanny Benoit RN) 0323 (Given - Provider: Gretta Rodriguez RN)0428 (Not Given - Provider: Gretta Rodriguez RN - Reason: Other - Comment: duplicate order)0836 (Not Given - Provider: Chanel Bob RN - Reason: Other - Comment: already given)1440 (Given - Provider: Chanel Bob RN) LORazepam (ATIVAN) tablet 1 mg (CANCELED) 1 mg, oral, Every 4 hours PRN, anxiety, Starting on Tue02/08/22 at 1135 0856 (Given - Provider: Jose Conti RN)1310 (Given - Provider: Jose Conti RN)2322 (Given - Provider: Gretta Rodriguez RN) 1202 (Given - Provider: Giovanny Benoit RN)1218 (Not Given - Provider: Giovanny Benoit RN - Reason: Other - Comment: duplicate order from [place]) nicotine polacrilex (NICORETTE) gum 2 mg 2 mg, mouth/throat, Every 1 hour PRN, nicotine withdrawal symptoms, Starting on Tue02/01/22 at 2128, Instruct patients to chew into gum and then place between the cheek and gum to enhance absorption. 1225 (Given - Provider: Jose Conti RN)1536 (Given - Provider: Jose Conti RN)1735 (Given - Provider: Rowena Weinberg RN)2311 (Not Given - Provider: Gretta Rodriguez RN - Reason: Other - Comment: I don't want it again ) 0038 (Given - Provider: Gretta Rodriguez RN)0807 (Given - Provider: Giovanny Benoit RN) 0839 (Given - Provider: Chanel Bob RN)1303 (Given - Provider: Chanel Bob RN)1439 (Not Given - Provider: Chanel oBb RN - Reason: Order parameters not met) ondansetron ODT (ZOFRAN-ODT) disintegrating tablet 4 mg 4 mg, oral, Every 4 hours PRN, nausea, vomiting, Starting on Tue02/03/22 at 1650 sodium chloride (OCEAN) 0.65 % nasal spray 2 spray 2 spray, each nostril, Every 2 hours PRN, rhinitis, Starting on Tue02/09/22 at 0934 0100 (Given - Provider: Ashwini Lowry RN) 0421 (Given - Provider: Gretta Rodriguez RN)2124 (Given - Provider: Gretta Rodriguez RN) traZODone (DESYREL) tablet 100 mg 100 mg, oral, Nightly PRN, sleep, Starting on Tue02/02/22 at 0921 0031 (Given - Provider: Gretta Rodriguez RN)2307 (Not Given - Provider: Gretta Rodriguez RN - Reason: Other - Comment: Pt won't make up her mind if she wants it or not. She later refused.) Linked Groups Order Group 1: ARIPiprazole lauroxil,submicr. (ARISTADA INITIO) intramuscular syringe 675 mg (COMPLETED) 675 mg, intramuscular, Once, On Tue02/03/22 at 1300, For 1 dose, Gluteal or deltoid administration only. Tap syringe 10 times and then shake vigorously with a loose wrist for a minimum of 30 seconds immediately prior to injection., Indications: Schizophrenia And ARIPiprazole (ABILIFY) tablet 30 mg (COMPLETED) 30 mg, oral, Once, On Tue02/03/22 at 1300, For 1 dose And ARIPiprazole lauroxil (ARISTADA) intramuscular syringe 882 mgJump to med 882 mg, intramuscular, Every 30 days, First dose on Tue02/03/22 at 1300, Gluteal administration only (exception: for doses of 441 mg, can administer via either gluteal or deltoid). Tap syringe 10 times and then shake vigorously with a loose wrist for a minimum of 30 seconds immediately prior to injection., Indications: Schizophrenia Group 2: droperidoL (INAPSINE) injection 5 mgJump to med 5 mg, intramuscular, Administer over 5 Minutes, Every 6 hours PRN, other, severe agitation, Starting on Tue02/02/22 at 1336 And LORazepam (ATIVAN) injection 2 mgJump to med 2 mg, intramuscular, Every 6 hours PRN, other, severe agitation, Starting on Tue02/02/22 at 1337, For IV administration, dilute with equal volume of 0.9% sodium chloride to a final concentration of 1 mg/mL. Do not exceed a rate of 2 mg/minute documented in this encounter Orders Medications Ordered That Jose ht Not Have Been Administered Count Last Ordered Date First Ordered Date loperamide (IMODIUM) capsule 2 mg 1 022 chlorproMAZINE (THORAZINE) tablet 100 mg 1 02/06/2022 hydrOXYzine (ATARAX) tablet 25 mg 1 022 OLANZapine (ZyPREXA ZYDIS) d isintegrating tablet 10 mg 1 02/01/2022 traZODone (DESYREL) tablet 50 mg 1 02/02/20 Nursing Count Last Ordered Date First Orde red Date MEASURE HEIGHT AND LENGTH 1 02/01/2022 MISCELLANEOUS NURSING CARE ORDER (SPECIFY) 1 02/01/2022 WEIGH PATIENT 1 02/01/2022 Consult Count Last Ordered Date First Orde red Date IP CONSULT TO PSYCHIATRY 1 02/01/2022 Admission Count Last Ordered Date First Orde red Date ADMIT TO INPATIENT 1 02/01/2022 Discharge Count Last Ordered Date First Orde red Date DISCHARGE PATIENT 2 02/15/2022 CORE MEASURES Count Last Ordered Date First Ord ered Date REASON FOR NO VTE PROPHYLAXIS AT ADMISSION 1 02/01/2022 documented in this encounter Care Teams Mac Developer Relationship Specialty Start Date End Date Marlin Contreras MD PCP - General 04/07/17 10/09/23 documented as of this encounter
--- OUTSIDE RECORDS SUMMARY | 2024-03-25 18:43 | XMS_ITS | Patient Health Record ---
Author Organization [facility] Address [address] [place] [address] Care Team Providers Care Blending Tank Tender Name Role Phone Jessica Swanson Primary Care Provider Allergies Allergen (clinical drug ingredient) Drug/Non Drug Allergy documented on EMR Reaction Allergy Type Onset Date Status sulfamethoxazole / trimethoprim Bactrim hives Drug Allergy Active Reason For Referral No Information Medications Medication SIG (Take, Route, Frequency, Duration) Notes Start Date End Date Status buPROPion HCl 75 MG 1 tablet Orally Twic e a day for 30 day(s) 09/17/2020 Active Effexor XR 150 MG 1 capsule with food Orally Once a day for 30 days 07/30/2020 Active Effexor XR 37.5 MG 1 capsule with food Orally Once a day for 30 days Active hydrOXYzine HCl 25 MG 1 tablet as needed Orally Twice a day Not-Taking Social History Tobacco Use: Social History Observation Description Date Details (start date - stop date) Unknown Sex Assigned At : Social History Observation Description Sex Assigned At Female Dont use, Tobacco Use/Smoking Question Answer Notes Are you a Uses tobacco in other forms Additional Findings: Tobacco User User of moist powdered tobacco Problems Problem Type SNOMED Code ICD Code Onset Dates Problem Status W/U Status Risk Notes Problem 71958274 Generalized anxiety disorder (F41.1) Active confirmed Problem 743878243 Mild episode of recurrent major depressive disorder (F33.0) Active confirmed Plan Of Treatment No Information Insurance Providers Payer Name Payer Address Payer Phone Subscriber Number Group Number Insured Name Patient Relationship to Insured Coverage Start Date Coverage End Date [employer] [address] [place] [phone] [id number] Stephanie Coates Self - patient is the insured 1 Medical (General) History Surgical History Surgery Date(Month/Year) wisdom teeth removal 2018 Hospitalization History Reason Date(Month/Year) Kidney Infection 2019
--- OUTSIDE RECORDS SUMMARY | 2024-03-25 18:43 | XMS_ITS | Encounter Summary ---
Author Organization [facility] Healthcare Address [address] [place] [address] Care Team Providers Care Necktie Operator Pockets And Pieces Name Role Phone Marlin Contreras MD Primary Care Provider [phone] Encounter Details Date Type Department Care Team (Late st Contact Info) Description 02/16/2022 Documentation [facility] Social Work [address] [place] [address] Cuca Rain, CHEESE WEIGHER Social History Tobacco Use Types Packs/Day Years [...] declined 02/02/2022 How often do you attend scientologist or roman catholic serv ices? Patient declined 02/02/2022 Do you [...] medical care, and heating? Patient declined 02/02/2022 [facility] - Occupational Stress Questionnaire Answer [...] or rent on time? Patient refused 02/03/20 22 [address] of Places Lived in the Last Year Not on f ile 02/02/2022 In the last 12 months, was t here a time when you did not have a steady place to sleep or slept in a alf (including now)? Patient refused 02/02/2022 Comments Unknown Sex and Gender Information Value Date Recorded Sex Assigned at Not on file Legal Sex Female 12:29 PM ROLLS MILL OPERATOR Gender Identity Not on file Sexual Orientation Not on file documented as of this encounter Progress Notes * Cuca Rain LCSW - 02/16/2022 5:13 PM CST EDSW received a call from [facility] RN after hours indicating that patient did not leave with prescriptions and would need them filled. SULEMAN confirmed with [facility] that they are able to fill prescriptions, but can must order them prior. SULEMAN spoke with [facility] who states that they have Thorazine 100MG tablets in stock. SULEMAN spoke with pt's mother Lu [phone] and informed her that [facility] is able to fill prescriptions this evening. Mother confirmed that they have hard scripts in hand. Lu appreciative of intervention. SULEMAN intervention complete. LORRAINE Lainez LCSW [facility] Social Work S MILL OPERATOR documented in this encounter Plan of Treatment Not on file documented as of this encounter Visit Diagnoses Not on filedocumented in this encounter Care Teams Necktie Operator Pockets And Pieces Relationship Specialty Start Date End Date Marlin Contreras MD PCP - General 04/07/17 10/09/23 documented as of this encounter
--- OUTSIDE RECORDS SUMMARY | 2024-03-25 18:43 | XMS_ITS | Encounter Summary ---
Author Organization [facility] Healthcare Address [address] [place] [address] Care Team Providers Care Hadoop Developer Name Role Phone Unknown, Notinfile Primary Care Provider Unavail able Encounter Details Date Type Department Care Team (Latest Contact Info) Description 11/13/2016 11:40 AM CDT - 11/13/2016 11:59 PM CDT Hospital Encounter [facility] [phone] [place] [address] [place] [address] Discharge Disposition: Discharge to home or self care Social History Tobacco Use Types Packs/Day Years Used Date Smoking Tobacco: Never Comments Unknown Sex and Gender Information Value Date Recorded Sex Assigned at Not on file Legal Sex Female 12:29 PM COMMUNITY RELATIONS COORDINATOR Gender Identity Not on file Sexual Orientation Not on file documented as of this encounter Discharge Disposition Disposition Code Departure Means Destination Discharge to home or self care documented in this encounter Plan of Treatment Not on file documented as of this encounter Procedures Procedure Name Priority Date/Time Associated Diagnosis Comments XR TIBIA FIBULA 2 VW Routine 11/13/2016 5:00 PM CDT XR TIBIA FIBULA 2 VW Routine 11/13/2016 5:00 PM CDT documented in this encounter Results * XR Tibia Fibula 2 VW (11/13/2016 5:00 PM CDT) Anatomical Region Laterality Modality N/A Radiographic María ging 11/13/2016 5:00 PM CDT Narrative 11/13/2016 5:00 PM CDT ALBERTO ALVARENGA M.D. FINAL REPORT ACC# ??Date Time ??Exam [id number] Nov 13, 2016 12:00:00 [id number] Tibia Fibula 2 views R [id number] Nov 13, 2016 12:00:00 [id number] Tibia Fibula 2 views L EXAMINATION: ? 1. Left tibia and fibula, 2 views. 2. Right tibia and fibula, 2 views. HISTORY: ??Bilateral tibial pain FINDINGS: ??Two-view examination of each leg is digitally-acquired. There are no prior studies for comparison. There is no fracture, healing stress fracture, or bone abnormality on either side. The alignment is normal. The soft tissues appear normal. IMPRESSION: ?? Normal examination of both legs. Requested By: ALEC OLIVARES ??Mary Dictated By: ?? ALBERTO ALVARENGA M.D. ??on Nov 13 2016 12:45P This document has been electronically signed by: ALBERTO ALVARENGA M.D. on Nov 13 2016 12:45P [id number] ALVARENGA M.D. FINAL REPORT Attending: ??MECHELLE, ??ALEC Requesting: ??MECHELLE, ??ALEC Requesting Fax: ?? Attending Fax: ?? Attending ID: ??[id number] Requesting ID: ??[id number] Report To 1 ID: ??[id number] ? Report To 1 Name: ??, ?? Report To 1 FAX: ?? NextGen Order #: ?? Procedure Note Miscellaneous, Not In File - 01/22/2017 ALBERTO ALVARENGA M.D. FINAL REPORT ACC# Date Time Exam [id number] Nov 13, 2016 12:00:00 79030 Tibia Fibula 2 views R [id number] Nov 13, 2016 12:00:00 50415 Tibia Fibula 2 views L EXAMINATION: 1. Left tibia and fibula, 2 views. 2. Right tibia and fibula, 2 views. HISTORY: Bilateral tibial pain FINDINGS: Two-view examination of each leg is digitally-acquired. There are no prior studies for comparison. There is no fracture, healing stress fracture, or bone abnormality on either side. The alignment is normal. The soft tissues appear normal. IMPRESSION: Normal examination of both legs. Requested By: ALEC OLIVARES M.D. Dictated By: ALBERTO ALVARENGA M.D. on Nov 13 2016 12:45P This document has been electronically signed by: ALBERTO ALVARENGA M.D. on Nov 13 2016 12:45P [id number] RUBIN, M.D. FINAL REPORT Attending: ALEC OLIVARES Requesting: ALEC OLIVARES Requesting Fax: Attending Fax: Attending ID: [id number] Requesting ID: [id number] Report To 1 ID: [id number] Report To 1 Name: , Report To 1 FAX: NextGen Order #: Alec Olivares MD IMG XR PROCEDURES Edited R esult - Final * XR Tibia Fibula 2 VW (11/13/2016 5:00 PM CDT) Anatomical Region Laterality Modality N/A Radiographic María ging 11/13/2016 5:00 PM CDT Narrative 11/13/2016 5:00 PM CDT ALBERTO ALVARENGA M.D. FINAL REPORT ACC# ??Date Time ??Exam [id number] Nov 13, 2016 12:00:00 [id number] Tibia Fibula 2 views R [id number] Nov 13, 2016 12:00:00 11066 Tibia Fibula 2 views L EXAMINATION: ? 1. Left tibia and fibula, 2 views. 2. Right tibia and fibula, 2 views. HISTORY: ??Bilateral tibial pain FINDINGS: ??Two-view examination of each leg is digitally-acquired. There are no prior studies for comparison. There is no fracture, healing stress fracture, or bone abnormality on either side. The alignment is normal. The soft tissues appear normal. IMPRESSION: ?? Normal examination of both legs. Requested By: ALEC OLIVARES ??Mary Dictated By: ?? ALBERTO ALVARENGA M.D. ??on Nov 13 2016 12:45P This document has been electronically signed by: ALBERTO ALVARENGA M.D. on Nov 13 2016 12:45P [id number] ALVARENGA M.D. FINAL REPORT Attending: ??MECHELLE, ??ALEC Requesting: ??MECHELLE, ??ALEC Requesting Fax: ?? Attending Fax: ?? Attending ID: ??[id number] Requesting ID: ??[id number] Report To 1 ID: ??[id number] ? Report To 1 Name: ??, ?? Report To 1 FAX: ?? NextGen Order #: ?? Procedure Note Miscellaneous, Not In File - 01/22/2017 ALBERTO ALVARENGA M.D. FINAL REPORT ACC# Date Time Exam [id number] Nov 13, 2016 12:00:00 [id number] Tibia Fibula 2 views R [id number] Nov 13, 2016 12:00:00 [id number] Tibia Fibula 2 views L EXAMINATION: 1. Left tibia and fibula, 2 views. 2. Right tibia and fibula, 2 views. HISTORY: Bilateral tibial pain FINDINGS: Two-view examination of each leg is digitally-acquired. There are no prior studies for comparison. There is no fracture, healing stress fracture, or bone abnormality on either side. The alignment is normal. The soft tissues appear normal. IMPRESSION: Normal examination of both legs. Requested By: ALEC OLIVARES M.D. Dictated By: ALBERTO ALVARENGA M.D. on Nov 13 2016 12:45P This document has been electronically signed by: ALBERTO ALVARNEGA M.D. on Nov 13 2016 12:45P [id number] ALVARENGA M.D. FINAL REPORT Attending: ALEC OLIVARES Requesting: ALEC OLIVARES Requesting Fax: Attending Fax: Attending ID: [id number] Requesting ID: [id number] Report To 1 ID: [id number] Report To 1 Name: , Report To 1 FAX: NextGen Order #: Alec Olivares MD IMG XR PROCEDURES Edited R esult - Final documented in this encounter Visit Diagnoses Not on filedocumented in this encounter Care Teams Hadoop Developer Relationship Specialty Start Date End Date Unknown, Notinfile PCP - General 11/13/16 11/24/16 documented as of this encounter
--- OUTSIDE RECORDS SUMMARY | 2024-03-25 18:43 | XMS_ITS | Encounter Summary ---
Author Organization [facility] Facility Care Team Providers Care Final Inspector Balance Wheel Name Role Phone Unavailable Primary Care Provider Unavailabl e Encounter Details Date Type Department Care Team (Late st Contact Info) Description 02/03/2015 12:54 PM BREWERY TECHNICIAN - 02/03/2015 4:00 PM BREWERY TECHNICIAN Hospital Encounter [facility] Sharron, Orlin Estes MD [address] [address] Pain in left knee; Injury; Activity involving soccer Social History Tobacco Use Types Packs/Day Years Used Date Smoking Tobacco: Never Comments Unknown Sex and Gender Information Value Date Recorded Sex Assigned at Not on file Legal Sex Female 12:29 PM BREWERY TECHNICIAN Gender Identity Not on file Sexual Orientation Not on file documented as of this encounter Plan of Treatment Not on file documented as of this encounter Procedures Procedure Name Priority Date/Time Associated Diagnosis Comments KNEE RADIOGRAPHY, FRONTAL (AP), LATERAL, OBLIQUE Routine 02/03/2015 1:09 PM BREWERY TECHNICIAN documented in this encounter Results * KNEE RADIOGRAPHY, FRONTAL (AP), LATERAL, OBLIQUE (02/03/2015 1:09 PM BREWERY TECHNICIAN) Anatomical Region Laterality Modality N/A Radiographic María ging 02/03/2015 1:09 PM BREWERY TECHNICIAN Narrative 02/03/2015 1:32 PM BREWERY TECHNICIAN ALBERTO ALVARENGA M.D. FINAL REPORT ACC# ??Date Time ??Exam [id number] Feb 03, 2015 13:09:00 30695 Knee 3 views L EXAMINATION: ? Left knee, 3 views HISTORY: ??Left knee pain after soccer injury FINDINGS: ??Three-view examination of the left knee is digitally-acquired and includes a standing AP and Merchant examination of both knees. There are no prior left knee radiographs for comparison. The joint spaces are normal and symmetric. On the left, alignment is normal. There is no fracture or bone abnormality. There is no effusion. IMPRESSION: ?? Normal examination of the left knee. Requested By: ORLIN EVANS M.D. Dictated By: ?? ALBERTO ALVARENGA M.D. ??on Jan?2014 ??1:32P This document has been electronically signed by: ALBERTO ALVARENGA M.D. on Feb 03 2015 ??1:32P [id number] Procedure Note Provider, MD Vani - 07/23/2016 ALBERTO ALVARENGA M.D. FINAL REPORT ACC# Date Time Exam [id number] Feb 03, 2015 13:09:00 04715 Knee 3 views L EXAMINATION: Left knee, 3 views HISTORY: Left knee pain after soccer injury FINDINGS: Three-view examination of the left knee is digitally-acquired and includes a standing AP and Merchant examination of both knees. There are no prior left knee radiographs for comparison. The joint spaces are normal and symmetric. On the left, alignment is normal. There is no fracture or bone abnormality. There is no effusion. IMPRESSION: Normal examination of the left knee. Requested By: ORLIN EVANS M.D. Dictated By: ALBERTO ALVARENGA M.D. on Feb 03 2015 1:32P This document has been electronically signed by: ALBERTO ALVARENGA M.D. on Feb 03 2015 1:32P [id number] Historical Provider IMJefe XR PROCEDURES Final R esult documented in this encounter Visit Diagnoses Diagnosis Pain in left knee Injury Injury, other and unspecified, unspecified site Activity involving soccer documented in this encounter
--- OUTSIDE RECORDS SUMMARY | 2024-03-25 18:43 | XMS_ITS | Encounter Summary ---
Author Organization [facility] Facility Care Team Providers Care Diplomatic Interpreter/Translator Name Role Phone Unavailable Primary Care Provider Unavailabl e Encounter Details Date Type Department Care Team (Late st Contact Info) Description 03/10/2015 - 03/10/2015 11:59 PM SEASONAL RETAIL MERCHANDISER Hospital [facility], Pelon Estes MD [address] [address] Social History Tobacco Use Types Packs/Day Years Used Date Smoking Tobacco: Never Comments Unknown Sex and Gender Information Value Date Recorded Sex Assigned at Not on file Legal Sex Female 12:29 PM SEASONAL RETAIL MERCHANDISER Gender Identity Not on file Sexual Orientation Not on file documented as of this encounter Plan of Treatment Not on file documented as of this encounter Visit Diagnoses Not on filedocumented in this encounter
--- OUTSIDE RECORDS SUMMARY | 2024-03-25 18:43 | XMS_ITS | Encounter Summary ---
Author Organization [facility] Facility Care Team Providers Care Telephonic Rn Name Role Phone Unavailable Primary Care Provider Unavailabl e Encounter Details Date Type Department Care Team (Late st Contact Info) Description 02/17/2015 - 02/17/2015 11:59 PM NIB ASSEMBLER [facility], Pelon Estes MD [address] [address] Social History Tobacco Use Types Packs/Day Years Used Date Smoking Tobacco: Never Comments Unknown Sex and Gender Information Value Date Recorded Sex Assigned at Not on file Legal Sex Female 12:29 PM NIB ASSEMBLER Gender Identity Not on file Sexual Orientation Not on file documented as of this encounter Plan of Treatment Not on file documented as of this encounter Visit Diagnoses Not on filedocumented in this encounter
--- OUTSIDE RECORDS SUMMARY | 2024-03-25 18:43 | XMS_ITS | Encounter Summary ---
Author Organization [facility] Healthcare Address [address] [place] [address] Care Team Providers Care Infrastructure Developer Name Role Phone Marlin Contreras MD Primary Care Provider [phone] Encounter Details Date Type Department Care Team (Latest Contact Info) Description 04/07/2017 3:06 PM BAG END SEWER - 04/07/2017 11:59 PM BAG END SEWER Hospital Encounter [facility] [phone] Orlin Evans MD [address] [address] Discharge Disposition: Discharge to home or self care Social History Tobacco Use Types Packs/Day Years Used Date Smoking Tobacco: Never Comments Unknown Sex and Gender Information Value Date Recorded Sex Assigned at Not on file Legal Sex Female 12:29 PM BAG END SEWER Gender Identity Not on file Sexual Orientation Not on file documented as of this encounter Discharge Disposition Disposition Code Departure Means Destination Discharge to home or self care documented in this encounter Plan of Treatment Not on file documented as of this encounter Procedures Procedure Name Priority Date/Time Associated Diagnosis Comments MRI LOWER EXTREMITY JOINT WO CONTRAST Routine 04/07/2017 9:58 PM BAG END SEWER documented in this encounter Results * MRI Lower Extremity Joint WO Contrast (04/07/2017 9:58 PM BAG END SEWER) Anatomical Region Laterality Modality N/A Magnetic Resonan ce 04/07/2017 9:58 PM BAG END SEWER Narrative 04/07/2017 10:47 PM BAG END SEWER SHAHID CHARLTON MD, PHD LOUISA EMMANUEL M.D. FINAL REPORT The radiology attending physician has personally reviewed this study, and has reviewed and/or edited this written report and agrees with it. ACC# ??Date Time ??Exam [id number] Apr 07, 2017 15:58:00 [id number] MR Knee without cont L EXAMINATION: ??MRI left knee without contrast HISTORY: ??Left posterior medial tibial plateau bone contusion FINDINGS: Radiographs from 02/03/2015 were reviewed. ??Direct comparison is made to MRI on 07/10/2015. [...] is intact. The collateral ligaments appear normal. ??There is a bone contusion in the posterior medial tibial plateau. ??There is no fracture. ??There is a physiologic amount of fluid within the knee. ??There is no intra-articular body. IMPRESSION: ??1. Small focal bone contusion in the posteromedial left tibial plateau. 2. Intact left knee menisci and ligaments. Electronically signed by: Shahid Charlton MD, PHD Requested By: ORLIN EVANS M.D. Dictated By: ?? LOUISA EMMANUEL M.D. ??on Apr 07 2017 ??4:30P This document has been electronically signed by: SHAHID CHARLTON MD, PHD on Apr 07 2017 ??4:45P [id number] CHARLTON MD, PHD LOUISA EMMANUEL M.D. FINAL REPORT The radiology attending physician has personally reviewed this study, and has reviewed and/or edited this written report and agrees with it. Attending: ??NATHAN, ??ORLIN Requesting: ??NATHAN, ??ORLIN Requesting Fax: ?? Attending Fax: ?? Attending ID: ??[id number] Requesting ID: ??[id number] Report To 1 ID: ??[id number] ? Report To 1 Name: ??, ?? Report To 1 FAX: ?? NextGen Order #: ?? Procedure Note Miscellaneous, Not In File - 04/07/2017 SHAHID CHARLTON MD, PHD LOUISA EMMANUEL M.D. FINAL REPORT The radiology attending physician has personally reviewed this study, and has reviewed and/or edited this written report and agrees with it. ACC# Date Time Exam [id number] Apr 07, 2017 15:58:00 [id number] MR Knee without cont L EXAMINATION: MRI [...] MD, PHD on Apr 07 2017 4:45P [id number] CHARLTON MD, PHD LOUISA EMMANUEL M.D. FINAL REPORT The radiology attending physician has personally reviewed this study, and has reviewed and/or edited this written report and agrees with it. Attending: ORLIN EVANS Requesting: ORLIN EVANS Requesting Fax: Attending Fax: Attending ID: [id number] Requesting ID: [id number] Report To 1 ID: [id number] Report To 1 Name: , Report To 1 FAX: NextGen Order #: Orlin Evans MD IMG MRI PROCEDURES Final Result documented in this encounter Visit Diagnoses Not on filedocumented in this encounter Care Teams Infrastructure Developer Relationship Specialty Start Date End Date Marlin Contreras MD PCP - General 04/07/17 10/09/23 documented as of this encounter
--- OUTSIDE RECORDS SUMMARY | 2024-03-25 19:28 | XMS_ITS | Patient Health Summary ---
Author Organization [facility] Address [address] [place] [address] Care Team Providers Care Dial Maker Name Role Phone Unavailable Primary Care Provider Unavailabl e Note from [facility],non-owned Affiliates and Associated Physician Practices is amultiple site organization consisting of ambulatory clinics and hospital sitesin [place], [place], [place] and [place]. This disclosure is being madepursuant to the Care Everywhere program and may not contain all information available regarding this patient. Last updated 17.[facility] Allergies * Sulfamethoxazole W-Trimethoprim(Itching) Active Problems Problem [...] EKG 12-LEAD (01/24/2022 7:56 AM CDT) Pathologist [facility] Ventricular Rate 79 BPM [facility] Atrial Rate 79 BPM [facility] P-R Interval 112 ms [facility] QRS Duration ms 74 ms [facility] Q-T Interval ms 338 ms [facility] QTC Calculation (Bezet) 387 ms [facility] Calculated P [facility] 44 degrees [facility] Calculated R [facility] 83 degrees [facility] Calculated T [facility] 51 degrees [facility] Interpretation EKG NORMAL SINUS RHYTHM NORMAL ECG NO PREVIOUS ECGS AVAILABLE Confirmed by DARIUSZ QUINONES, [facility] ([id number]) on 01/27/2022 8:42:05 AM [facility] 01/24/2022 7:56 AM CDT 01/27/2022 8:42 AM CDT Woody Moore MD ECG ORDERABLES [facility] * SYPHILIS ANTIBODY CASCADING REFLEX (01/22/2022 5:50 PM CDT) Pathologist [facility] Treponema pallidum Antibody Non-react bernabe Non-react bernabe 01/22/2022 6:43 PM CDT [facility] Comment: No Laboratory evidence of syphilis infection. ?? Note: ??Circulating antibodies may be low or undetectable in early infection. ??If recent exposure is suspected, re-draw sample in 2-4 weeks and repeat testing. Blood BLOOD SPECIMEN / Unknown Venipuncture / Unknown 01/22/2022 5:50 PM CDT 01/22/2022 5:56 PM CDT Lena Martinez MD LAB - SEROLOGY ORDER [facility] [address] [place] [address], [facility] [phone] * (ABNORMAL) CBC W AUTO DIFFERENTIAL (01/22/2022 5:50 PM CDT) WBC 9.7 3.5 - 10.5 10? 3 /uL 01/22/2022 6:01 PM [facility] RBC 4.02 3.80 - 5.20 10? 6 /uL 01/22/2022 6:01 PM [facility] Hemoglobin 13.1 12.0 - 15.6 g/dL 01/22/2022 6:01 PM [facility] Hematocrit 37.6 35.0 - 45.0 % 01/22/2022 6:01 PM [facility] MCV 93.5 80.7 - 98.3 fL 01/22/2022 6:01 PM [facility] MCH 32.6 26.7 - 34.0 pg 01/22/2022 6:01 PM [facility] MCHC 34.8 30.8 - 35.9 g/dL 01/22/2022 6:01 PM [facility] RDW-SD 42.7 36.0 - 50.0 fL 01/22/2022 6:01 PM [facility] RDW-CV 12.3 11.2 - 14.8 % 01/22/2022 6:01 PM [facility] Platelet Count 265 150 - 400 10? 3 /uL 01/22/2022 6:01 PM [facility] MPV 8.9(L) 9.4 - 12.9 fL 01/22/2022 6:01 PM [facility] nRBC Absolute 0.00 0 10? 3 /uL 01/22/2022 6:01 PM [facility] nRBC Auto 0.0 0 /100 WBC 01/22/2022 6:01 PM [facility] Neutrophils % 65.0 35.0 - 70.0 % 01/22/2022 6:01 PM [facility] Lymphocytes % 24.2 20.0 - 43.0 % 01/22/2022 6:01 PM [facility] Monocytes % 9.4 5.0 - 13.0 % 01/22/2022 6:01 PM [facility] Eosinophils % 0.7 0.0 - 6.0 % 01/22/2022 6:01 PM [facility] Basophil % 0.3 0.0 - 2.0 % 01/22/2022 6:01 PM [facility] Neutrophils Absolute 6.32 1.60 - 7.00 10? 3 /uL 01/22/2022 6:01 PM [facility] Lymphocyte Absolute 2.35 1.10 - 3.90 10? 3 /uL 01/22/2022 6:01 PM [facility] Monocytes Absolute 0.91 0.26 - 1.07 10? 3 /uL 01/22/2022 6:01 PM [facility] Eosinophils Absolute 0.07 0.00 - 0.47 10? 3 /uL 01/22/2022 6:01 PM [facility] Basophils Absolute 0.03 0.00 - 0.08 10? 3 /uL 01/22/2022 6:01 PM [facility] Immature Granulocytes % 0.4 0.0 - 1.0 % 01/22/2022 6:01 PM [facility] Immature Granulocytes Absolute 0.04 01/22/2022 6:01 PM [facility] Blood BLOOD SPECIMEN / Unknown Venipuncture / Unknown 01/22/2022 5:50 PM CDT 01/22/2022 5:57 PM T Lena Martinez MD LAB - HEMATOLOGY ORD ERABLES [facility] [address] [place] [address] [phone] * (ABNORMAL) COMPREHENSIVE METABOLIC PANEL (01/22/2022 5:50 PM [facility]) BUN 9 7 - 26 mg/dL 01/22/2022 6:32 PM [facility] Creatinine 0.63 0.56 - 0.96 mg/dL 01/22/2022 6:32 PM [facility] Sodium 139 136 - 145 mmol/L 01/22/2022 6:32 PM [facility] Potassium 3.3(L) 3.5 - 4.5 mmol/L 01/22/2022 6:32 PM [facility] Chloride 105 98 - 107 mmol/L 01/22/2022 6:32 PM [facility] CO2 20(L) 22 - 29 mmol/L 01/22/2022 6:32 PM [facility] Glucose 62(L) 70 - 115 mg/dL 01/22/2022 6:32 PM [facility] Calcium 8.8 8.4 - 10.2 mg/dL 01/22/2022 6:32 PM [facility] Protein Total 6.7 6.0 - 8.3 g/dL 01/22/2022 6:32 PM [facility] Albumin 4.0 3.4 - 5.0 g/dL 01/22/2022 6:32 PM [facility] Bilirubin Total 0.6 0.2 - 1.2 mg/dL 01/22/2022 6:32 PM [facility] Alkaline Phosphatase 81 40 - 150 U/L 01/22/2022 6:32 PM [facility] ALT 9 5 - 55 U/L 01/22/2022 6:32 PM [facility] AST 15 5 - 34 U/L 01/22/2022 6:32 PM [facility] Anion Gap 17 8 - 18 01/22/2022 6:32 PM [facility] BUN/Creatinine Ratio 14 7 - 23 01/22/2022 6:32 PM [facility] Osmolality Calculated 285 270 - 300 mOsm/kg 01/22/2022 6:32 PM CDT [facility] Albumin/Globulin Ratio 1.5 1.1 - 2.3 01/22/2022 6:32 PM CDT [facility] eGFR by CKD-EPI >90 >=90 mL/min/1.7 3 m2 01/22/2022 6:32 PM CDT [facility] Blood BLOOD SPECIMEN / Unknown Venipuncture / Unknown 01/22/2022 5:50 PM CDT 01/22/2022 5:57 PM CDT Lena Martinez MD LAB - CHEMISTRY THERESA COMBS [facility] [address] [place] [address], [facility] [phone] * HCG BETA BLOOD QUANTITATIVE (01/22/2022 5:50 PM CDT) Beta-hCG Total Quantitative <3 mIU/mL 01/22/2022 6:43 PM CDT [facility] Comment: This assay is cleared for [...] Martinez MD LAB - CHEMISTRY THERESA COMBS [facility] [address] [place] [address], [place] [phone] * MAGNESIUM BLOOD (01/22/2022 5:50 PM CDT) Pathologist [facility] Magnesium 1.8 1.6 - 2.6 mg/dL 01/22/2022 6:32 PM CDT [facility] Blood BLOOD SPECIMEN / Unknown Venipuncture / Unknown 01/22/2022 5:50 PM CDT 01/22/2022 5:57 PM CDT Lena Martinez MD LAB - CHEMISTRY THERESA COMBS Performing Organization Address [facility]/ZIP Co de Phone Number [facility] [address] [place] [address], [facility] [phone] * (ABNORMAL) ALCOHOL ETHYL BLOOD (01/22/2022 5:50 PM CDT) Ethanol (mg/dL) 15(H) <10 mg/dL 6:32 PM CDT [facility] Ethanol Calculated (g/dL) 0.015(H) <=0.010 g/dL 01/22/2022 6:32 PM CDT [facility] Blood BLOOD SPECIMEN / Unknown Venipuncture / Unknown 01/22/2022 5:50 PM CDT 01/22/2022 5:57 PM CDT Narrative [facility] - 01/22/2022 6:32 PM CDT Ethanol Interp <10: None Detected. Depression of [employer]: >100 mg/dl Potentially Critical: >250 mg/dl Potentially [...] Martinez MD LAB - CHEMISTRY THERESA COMBS [facility] [address] [place] [address], [place] [phone] * (ABNORMAL) URINE DRUG SCREEN IMMUNOASSAY (01/22/2022 5:47 PM CDT) Amphetamines Screen Urine Positive(A) Negative : < 1000 ng/mL 01/22/2022 6:12 PM CDT [facility] Comment: Positive urine amphetamine screening results should be confirmed by another generally accepted non-immunological method such as gas chromatography or mass spectrometry. ? Barbiturates Screen Urine Negative Negative : < 200 ng/mL 01/22/2022 6:12 PM [facility] Benzodiazepine Screen Urine Negative Negative : < 200 ng/mL 01/22/2022 6:12 PM [facility] Opiates Urine Negative Negative : < 300 ng/mL 01/22/2022 6:12 PM [facility] Cocaine Metabolites Urine Negative Negative : < 300 ng/mL 01/22/2022 6:12 PM [facility] Phencyclidine Screen Urine Negative Negative : < 25 ng/ml 01/22/2022 6:12 PM [facility] Cannabinoids Screen Urine Positive(A) Negative : <50 ng/mL 01/22/2022 6:12 PM [facility] Comment:Positive urine canna binoids (THC) screening results should be confirmed by another generally accepted non-immunological method such as gas chromatography or mass spectrometry. Methadone Screen Urine Negative Negative : < 300 ng/mL 01/22/2022 6:12 PM [facility] Fentanyl Screen Urine Negative Negative : <1.5 ng/mL 01/22/2022 6:12 PM [facility] Urine URINE / Unknown Collection / Unknown 01/22/2022 5:47 PM CDT 01/22/2022 5:48 PM CDT [facility] - 01/22/2022 6:12 PM CDT The Urine Toxicology Screening Panel does not screen for Propoxyphene, Meprobamate, Carisoprodol, Trazodone, [id number] medications and/or volatiles (Acetone, Isopropanol, Methanol or Ethylene Glycol). Ethanol, Salicylate, Acetaminophen, Tricyclic Antidepressants and several therapeutic drugs may be individually assayed in serum or plasma specimen. Toxicology testing by the [facility] is an aid to medical diagnosis and treatment of patients. No documented chain of custody was maintained. Results are intended to be used for clinical purposes only. ? Lena Martinez MD LAB - URINE CHEMISTR Y ORDERABLES Performing Organization Address [facility] Co de Phone Number [facility] [address] [place] [address], [place] [phone]
--- OUTSIDE RECORDS SUMMARY | 2024-03-25 19:28 | XMS_ITS | Clinical Summary ---
Author Organization [facility] Address [address] [place] [address] Care Team Providers Care Sales Leader Name Role Phone Unavailable Primary Care Provider Unavailabl e Source Comments [facility],non-owned Affiliates and Associated Physician Practices is amultiple site organization consisting of ambulatory clinics and hospital sitesin [place], [place], [place] and [place]. This disclosure is being madepursuant to the Care Everywhere program and may not contain all information available regarding this patient. Last updated 17.[facility] Allergies Active Allergy Reactions Criticality Noted Date [...]
--- OUTSIDE RECORDS SUMMARY | 2024-03-25 19:28 | XMS_ITS | Referral Summary ---
Author Organization [facility] Address [address] [place] [address] Care Team Providers Care Photographic Double Name Role Phone Unavailable Primary Care Provider Unavailabl e Source Comments [facility],non-owned Affiliates and Associated Physician Practices is amultiple site organization consisting of ambulatory clinics and hospital sitesin [place], [place], [place] and [place]. This disclosure is being madepursuant to the Care Everywhere program and may not contain all information available regarding this patient. Last updated 17.[facility] [employer] Allergies Active Allergy Reactions Criticality Noted Date [...]
--- OUTSIDE RECORDS SUMMARY | 2024-03-25 19:28 | XMS_ITS | Encounter Summary ---
Author Organization [facility] Address [facility] [place] [address] Care Team Providers Care Hogshead Cooper Name Role Phone Unavailable Primary Care Provider [...] Expiration Date Visits Re quested Visits Authorized [id number] 1 1 Encounter Details Date Type Department Care Team (Late st Contact Info) Description 01/22/2022 5:22 PM CDT - 01/25/2022 2:55 PM CDT Emergency [facility] EMERGENCY DEPARTMENT [address] [place] [id number] Lena Martinez MD [address] [facility] [place] [address] Woody Moore MD [address] [place] [address] [place] [address] [place] [address] Royal Guallpa MD [address] [facility] [place] [address] Manic episode (HCC) Discharge Disposition: Home or [...] PM CDT You were seen in the [facility] Emergency Department. After evaluation you are safe to be discharged. Return to the Emergency Department immediately if you experience worsening symptoms or a life or limb threatening emergency. Please take your prescribed medication as directed. Follow up with your primary care provider within 1 week or as needed. If you do not have a primary care provider or need additional resources, please visit [email or web address] for more information. Thank you for your visit. Very respectfully, Maikol Guthrie MD Emergency Medicine [facility] Alcohol and Drug Rehab Resources Inpatient [facility] [phone] Inpatient Medical Detox, Residential, Outpatient Services, Anti-Craving Medications, Aftercare (Adult and Adolescent Programs) Locations: [facility], [facility], [facility] Insurance(s): Most major insurances, Medicaid, State-Funding [facility] [phone] Inpatient Medical Detox, Residential, Outpatient Services, Anti-Craving Medications, Aftercare (Adults 18+) Main Location: [place] Locations: [facility], [facility], [place], [place] Insurance(s): Most major insurances (no , Medicare, or Medicaid) [facility] Emergency Department [phone] Residential, Outpatient Services, Anti-Craving Medications, Aftercare (Adult and Adolescent Programs) Locations: [place] ([place], [place], [place], [place], [place], [place], [place], [place]) Insurance(s): Most major insurances, [place] Medicaid, [place] State-Funding (no [place] Medicaid or Medicare) [facility] [phone] Inpatient Medical Detox, Short/Long-Term Residential, Outpatient Services, Transitional Housing (Adults 18+) Location: [facility] Insurance(s): Gael, Jackie, BCBS, Covji, Mageleny, United [facility] [phone] Inpatient Medical Detox, Short-Term Hospitalization, Typically 3 Day, 4 Night detox (Adults 18+) Locations: [place] ([place], [place], [place]); [place] ([place]) Insurance(s): Most major insurances, Medicare and Medicaid [facility] [phone] Residential Services, Outpatient Services, Early Intervention (Adolescents; Adult Programs) Locations: [place] and [facility] Insurance(s): Most major insurances, Medicare and Medicaid [facility] [phone] Inpatient Medical Detox, Residential, Outpatient Services, Aftercare (Adult and Adolescent Programs) Locations: [facility], [place], [place], [facility], [facility], [facility], [place] (more online) Insurance(s): Most major insurances, Medicare and Medicaid [facility] (Women Only) [phone] Residential, Outpatient Services, [employer] Services Location: [facility] Insurance(s): State-Funding, Medicare and Medicaid [facility] (Men Only) [phone] Inpatient Medical Detox, Short-Term Residential, Outpatient Services, Transitional Housing Location: [facility] Insurance(s): State-Funding [facility] Stabilization Service [phone] Inpatient Medical Detox, Short-Term Hospitalization, Typically 3 Day, 4 Night detox (Adults 18+) Locations: Tamara Luna Insurance(s): Most major insurances, Medicare and Medicaid [facility] ([facility]) * [phone] Inpatient Medical Detox, Residential, Outpatient Services, Anti-Craving Medications, Community Supports (Adult and Adolescents) Locations: [place], [place], [place], [place], [place], [place], [place], [place], [place], Mehrdad, [place] (more online) Insurance(s): Most major insurances, Medicare and Medicaid, [place], State-Funding [facility] [phone] Inpatient Medical Detox, Residential, Outpatient Services, Anti-Craving Medications, Aftercare, Family Program (Ages 16+) Inpatient Location: [place] Outpatient Location: Belen Mantilla Insurance(s): Most major insurances (No Medicare or Medicaid) [facility] Treatment Infrastructure Tech Jenny: [phone] Inpatient Medical Detox, Residential, Partial Hospitalization, Intensive Outpatient Programming, Locations: [place], [place]; [place], [place]; [facility]; [place], [place] Insurance(s): Most major insurances Outpatient [facility] [phone] Outpatient Detox, Aftercare, Anti-Craving Medications (Adult and Adolescent Programs) Location: [place] Insurance(s): Most major insurances and Managed Medicaids (No Medicare) [facility] (Assisted Recovery [facility]) [phone] Residential, Outpatient Services, Anti-Craving Medications, Transitional Housing, Aftercare (Sdjsbz24+) Locations: [facility] Insurance(s): Most major insurances (no Medicare, Medicaid, or HealthCare [place]) Nadiya [phone] Outpatient Services, Day Treatment Program, Counseling Services (Adult and Adolescent Programs) Locations: [place] Manuel Damon Insurance(s): Most major insurances, including Medicare and Medicaid National [place] on Alcoholism and Drug Abuse [facility] [phone] Substance Abuse assessments (9:30am - 3pm Tuesday - Tuesday; Appointment Only), Referrals, General Substance Abuse Help/Information Line (9am - 5pm Tuesday - Tuesday); Adult and Adolescent Assessments Location: [place] Insurance(s): None, Adult Appointments: $50, Adolescent (19 and under): Free [facility] * [phone] Outpatient Services, Day Treatment Program, Short/Long-Term Residential (Adults Only) Location: [facility] Insurance(s): Medicaid Only [place] [employer] Counseling, [facility] [phone] Outpatient Services, Individual/Family/Group Counseling (Adults Only) Location: [place] Insurance(s): Self pay, Private Insurance [employer] [phone] Intensive Outpatient Programming (Adults Only) Location: [place] Insurance(s): Self pay, Private Insurance [facility] [employer] [facility] [phone] Assessments, Individual Counseling, Intensive Outpatient Program, After-Care, Support Groups (Ages 13-25 Only) Location: [place] Insurance(s): Self pay, Private Insurance Suicide Prevention/Crisis Hotlines [facility] ([place]) - Behavioral Health Intake Department: [phone] [facility] Behavioral Health Intake Department is professionally staffed and offers free, confidential evaluations for anyone needing assistance with psychiatric and behavioral issues. Evaluations are available 24 hours a day, 7 days a week. [facility]: 635-594-UCQK (9007) [facility] is one of the nation's oldest suicide prevention and crisis hotlines. L[facility] operates 24 hours a day Behavioral Health Response: 864.320.4188 or [phone] Behavioral Health Response (BHR) is a professionally staffed crisis response service. R provides expert behavioral health, crisis response, and outreach services /[facility] Suicide Hotline: 7-677-557-TALK (6806) Press 1 National Suicide Prevention Hotline: 5-287-342-TALK (5134) 18/10 hotline available to anyone in suicidal crisis or emotional distress. Call's will be routed tothe nearest crisis center to you National Hope-Line Network: 3-076-LYJAJGG (035-6695) 18/10 hotline that connects people who are depressed or suicidal, or those who are concerned about someone they love, automatically to a CONTRACT [facility] or [facility] certified crisis center. Crisis Text Line: Just send a text message to 495037 Live, trained crisis counselors available 18/10 via [...] [place] MD - 01/25/2022 7:12 AM CDT [facility] Psychiatry Consult Progress Note Stephanie Coates Age: [...] UDS + cannabinoids + amphetamines. Collateral information: [phone]: Spoke with mother and explained to her that patient is doing better. She staed she can come home if she does not have schizophrenia or bipolar disorder. Mother to help with outpatient psychiatry reconnection Subjective: Interval Hx: Overnight Events: Patient remained agitated initially on admission the first day on and off. She was [facility] a [facility] hour hold, however she [...] of Psychiatry and Behavioral Neuroscience Pager number: [phone] Associated attestation - Blue Tim MD - [...] team to follow. Raoul Cohen MD PGY-1 Clinical Specialist Medical Device Department of Psychiatry and Neuroscience Pager Number: [phone] * Raoul Cohen MD - 01/24/2022 8:24 AM CDT [facility] Psychiatry Consult Progress Note Stephanie Coates Age: [...] relayed that she checked herself into a [facility] in Mar 2021 and was at [facility] , is not at that point [...] multiple substance use issues, who presented to [facility] for further evaluation and management of behavioral [...] - PRN orders in place for agitation. Koyn-Lr-VwmwpcKarma Guallpa MD * Raj Castillo MD - 01/23/2022 8:21 AM CDT [facility] Psychiatry Consult Progress Note Stephanie Coates Age: [...] above impression and plan. Raj Castillo MD [facility] Physician Re-Certification I certify that the inpatient [...] multiple substance use issues, who presented to [facility] for further evaluation and management of behavioral [...] PM CDTAssociated Order(s): IP CONSULT TO PSYCHIATRY [facility] Inpatient Psychiatry History and Physical Name: Stephanie Coates Age: [age] year old Date of : 2000 Location: [facility] Reason for Consultation: Eladio evaluation Chief Complaint: [...] notedto voice delusions related to the famous pulpit operator Aiden Noriega. Of note, during this time [...] his private jet to fly her to [facility], where he will engage her on the [...] T3, T3FREE, T4, T4FREE in the last 09904 hours. A1c: No results for input(s): HGBA1C, A1C, KYDAVAYKQ1I, EAG in the last 80727 hours. Lipid: No results for input(s): CHOL, TRIG, HDL, LDLCALC in the last 95967 hours. Other: BAL: Recent Labs Component Name 01/22/22 1750 ETOH 15* ETHANOLCALC 0.015* Serum Acetaminophen: No results for input(s): ACETAMINO in the last 76625 hours. Serum Salicylate:No results for input(s): SALICYLATE in the last 88187 hours. Urine Drug Screen: Recent Labs Component [...] tangential, and thinks she is flying to [facility] with a private jet sent to her [...] Dr. Guallpa. Renato Tovar MD PGY1 Pager: [phone] Department of Psychiatry and Behavioral Neuroscience 01/23/22 12:39 AM [facility] Initial Physician Certification I certify that the [...] - 01/25/2022 9:32 AM CDT Lu (mom) [phone], would like to be called with updates [...] per psychiatry. Clinical Impression: 1. Manic episode (CMS/[facility]) Disposition: Discharge per Psychiatry By signing my [...] Ethanol Interp <10: None Detected. Depression of METER/RELAY CRAFTSMAN: >100 mg/dl Potentially Critical: >250 mg/dl Potentially [...] not screen for Propoxyphene, Meprobamate, Carisoprodol, Trazodone, uosu-fpp-labfuju medications and/or volatiles (Acetone, Isopropanol, Methanol or Ethylene Glycol). Ethanol, Salicylate, Acetaminophen, Tricyclic Antidepressants and several therapeutic drugsmay be individually assayed in serum or plasma specimen. Toxicology testing by the [facility] is an aid to medical diagnosisand [...] Ethanol Interp <10: None Detected. Depression of METER/RELAY CRAFTSMAN: >100 mg/dl Potentially Critical: >250 mg/dl Potentially [...] not screen for Propoxyphene, Meprobamate, Carisoprodol, Trazodone, xsst-xze-eyehubz medications and/or volatiles (Acetone, Isopropanol, Methanol or Ethylene Glycol). Ethanol, Salicylate, Acetaminophen, Tricyclic Antidepressants and several therapeutic drugsmay be individually assayed in serum or plasma specimen. Toxicology testing by the [facility] is an aid to medical diagnosisand [...] Diagnosis: The encounter diagnosis was Manic episode ([facility]). Disposition: SRIDHAR to Dr. Mays By signing [...] me by Dr. Moore at 6:13 AM. Stephanie Coates is a 21 year [...] 96 hrs involuntary. The MD and the discharge planner explained why she could leave. She showed [...] Ethanol Interp <10: None Detected. Depression of METER/RELAY CRAFTSMAN: >100 mg/dl Potentially Critical: >250 mg/dl Potentially [...] not screen for Propoxyphene, Meprobamate, Carisoprodol, Trazodone, virk-qyf-ugfedea medications and/or volatiles (Acetone, Isopropanol, Methanol or Ethylene Glycol). Ethanol, Salicylate, Acetaminophen, Tricyclic Antidepressants and several therapeutic drugsmay be individually assayed in serum or plasma specimen. Toxicology testing by the [facility] is an aid to medical diagnosisand [...] Diagnosis: The encounter diagnosis was Manic episode (CMS/[facility]). Disposition: Admit to psychiatry. * Kiera Larson [...] She states she was recently seen at [facility] and was pulled over with her dog. [...] not screen for Propoxyphene, Meprobamate, Carisoprodol, Trazodone, ptjv-afs-iylzjgl medications and/or volatiles (Acetone, Isopropanol, Methanol or Ethylene Glycol). Ethanol, Salicylate, Acetaminophen, Tricyclic Antidepressants and several therapeutic drugsmay be individually assayed in serum or plasma specimen. Toxicology testing by the [facility] is an aid to medical diagnosisand [...] is stating that she is flying to [place] with Aiden gay to be on tour [...] (Bezet) 387 ms [facility] MUSE Calculated P Nancy 44 degrees [facility] MUSE Calculated R Nancy 83 degrees [facility] MUSE Calculated T Nancy 51 degrees [facility] MUSE Interpretation EKG NORMAL SINUS RHYTHM NORMAL ECG NO PREVIOUS ECGS AVAILABLE Confirmed by IVIS ARZOLA MD ([id number]) on 01/27/2022 8:42:05 AM [facility] MUSE 01/24/2022 7:56 AM CDT 01/27/2022 8:42 AM CDT Woody Moore MD ECG ORDERABLES Performing Organization Address City/[facility]/ZIP Co de Phone Number [facility] MUSE * SYPHILIS ANTIBODY CASCADING REFLEX (01/22/2022 5:50 PM CDT) [facility] Treponema pallidum Antibody Non-react bernabe Non-react bernabe 01/22/2022 6:43 PM CDT [facility] Comment: No Laboratory evidence of syphilis infection. ?? Note: ??Circulating antibodies may be low or undetectable in early infection. ??If recent exposure is suspected, re-draw sample in 2-4 weeks and repeat testing. Blood BLOOD SPECIMEN / Unknown Venipuncture / Unknown 01/22/2022 5:50 PM CDT 01/22/2022 5:56 PM CDT Lena Martinez MD LAB - SEROLOGY ORDER LINH Performing Organization Address [facility] Co de Phone Number [facility] [address] [place] [address], [facility] [phone] * HCG BETA BLOOD QUANTITATIVE (01/22/2022 5:50 PM CDT) [facility] Beta-hCG Total Quantitative <3 mIU/mL 01/22/2022 6:43 PM CDT [facility] Comment: This assay is cleared for [...] - CHEMISTRY THERESA COMBS Performing Organization Address City/[facility]/ZIP Co de Phone Number [address] [address], [facility] [phone] * MAGNESIUM BLOOD (01/22/2022 5:50 PM CDT) Magnesium 1.8 1.6 - 2.6 mg/dL 01/22/2022 6:32 PM CDT [facility] Blood BLOOD SPECIMEN / Unknown Venipuncture / Unknown 01/22/2022 5:50 PM CDT 01/22/2022 5:57 PM CDT Lena Martinez MD LAB - CHEMISTRY THERESA COMBS Performing Organization Address City/[facility]/ZIP Co de Phone Number [address] [address], [facility] [phone] * (ABNORMAL) COMPREHENSIVE METABOLIC PANEL (01/22/2022 5:50 PM CDT) BUN 9 7 - 26 mg/dL 01/22/2022 6:32 PM CDT [facility] Creatinine 0.63 0.56 - 0.96 mg/dL 01/22/2022 6:32 PM T [facility] Sodium 139 136 - 145 mmol/L 01/22/2022 6:32 PM T [facility] Potassium 3.3(L) 3.5 - 4.5 mmol/L 01/22/2022 6:32 PM T [facility] Chloride 105 98 - 107 mmol/L 01/22/2022 6:32 PM T [facility] CO2 20(L) 22 - 29 mmol/L 01/22/2022 6:32 PM T [facility] Glucose 62(L) 70 - 115 mg/dL 01/22/2022 6:32 PM T [facility] Calcium 8.8 8.4 - 10.2 mg/dL 01/22/2022 6:32 PM [facility] Protein Total 6.7 6.0 - 8.3 g/dL 01/22/2022 6:32 PM [facility] Albumin 4.0 3.4 - 5.0 g/dL 01/22/2022 6:32 PM [facility] Bilirubin Total 0.6 0.2 - 1.2 mg/dL 01/22/2022 6:32 PM [facility] Alkaline Phosphatase 81 40 - 150 U/L 01/22/2022 6:32 PM [facility] ALT 9 5 - 55 U/L 01/22/2022 6:32 PM [facility] AST 15 5 - 34 U/L 01/22/2022 6:32 PM [facility] Anion Gap 17 8 - 18 01/22/2022 6:32 PM [facility] BUN/Creatinine Ratio 14 7 - 23 01/22/2022 6:32 PM [facility] Osmolality Calculated 285 270 - 300 mOsm/kg 01/22/2022 6:32 PM [facility] Albumin/Globulin Ratio 1.5 1.1 - 2.3 01/22/2022 6:32 PM [facility] eGFR by CKD-EPI >90 >=90 mL/min/1.7 3 m2 01/22/2022 6:32 PM [facility] Blood BLOOD SPECIMEN / Unknown Venipuncture / Unknown 01/22/2022 5:50 PM CDT 01/22/2022 5:57 PM CDT Lena Martinez MD LAB - CHEMISTRY ORDE [facility] Organization Address City/State/ZIP Co de Phone Number [facility] [address] [place] [address], [facility] [phone] * (ABNORMAL) CBC W AUTO DIFFERENTIAL (01/22/2022 5:50 PM CDT) WBC 9.7 3.5 - 10.5 10? 3 /uL 01/22/2022 6:01 PM [facility] RBC 4.02 3.80 - 5.20 10? 6 /uL 01/22/2022 6:01 PM [facility] Hemoglobin 13.1 12.0 - 15.6 g/dL 01/22/2022 6:01 PM [facility] Hematocrit 37.6 35.0 - 45.0 % 01/22/2022 6:01 PM [facility] MCV 93.5 80.7 - 98.3 fL 01/22/2022 6:01 PM [facility] MCH 32.6 26.7 - 34.0 pg 01/22/2022 6:01 PM [facility] MCHC 34.8 30.8 - 35.9 g/dL 01/22/2022 6:01 PM [facility] RDW-SD 42.7 36.0 - 50.0 fL 01/22/2022 6:01 PM [facility] RDW-CV 12.3 11.2 - 14.8 % 01/22/2022 6:01 PM [facility] Platelet Count 265 150 - 400 10? 3 /uL 01/22/2022 6:01 PM [facility] MPV 8.9(L) 9.4 - 12.9 fL 01/22/2022 6:01 PM [facility] nRBC Absolute 0.00 0 10? 3 /uL 01/22/2022 6:01 PM [facility] nRBC Auto 0.0 0 /100 WBC 01/22/2022 6:01 PM [facility] Neutrophils % 65.0 35.0 - 70.0 % 01/22/2022 6:01 PM [facility] Lymphocytes % 24.2 20.0 - 43.0 % 01/22/2022 6:01 PM [facility] Monocytes % 9.4 5.0 - 13.0 % 01/22/2022 6:01 PM [facility] Eosinophils % 0.7 0.0 - 6.0 % 01/22/2022 6:01 PM [facility] Basophil % 0.3 0.0 - 2.0 % 01/22/2022 6:01 PM [facility] Neutrophils Absolute 6.32 1.60 - 7.00 10? 3 /uL 01/22/2022 6:01 PM CDT [facility] Lymphocyte Absolute 2.35 1.10 - 3.90 10? 3 /uL 01/22/2022 6:01 PM CDT [facility] Monocytes Absolute 0.91 0.26 - 1.07 10? 3 /uL 01/22/2022 6:01 PM CDT [facility] Eosinophils Absolute 0.07 0.00 - 0.47 10? 3 /uL 01/22/2022 6:01 PM CDT [facility] Basophils Absolute 0.03 0.00 - 0.08 10? 3 /uL 01/22/2022 6:01 PM CDT [facility] Immature Granulocytes % 0.4 0.0 - 1.0 % 01/22/2022 6:01 PM CDT [facility] Immature Granulocytes Absolute 0.04 01/22/2022 6:01 PM CDT [facility] Blood BLOOD SPECIMEN / Unknown Venipuncture / Unknown 01/22/2022 5:50 PM CDT 01/22/2022 5:57 PM CDT Lena Martinez MD LAB - HEMATOLOGY ORD ERABLES [facility] [address] [place] [address], [facility] [phone] * (ABNORMAL) ALCOHOL ETHYL BLOOD (01/22/2022 5:50 PM CDT) Ethanol (mg/dL) 15(H) <10 mg/dL 6:32 PM CDT [facility] Ethanol Calculated (g/dL) 0.015(H) <=0.010 g/dL 01/22/2022 6:32 PM CDT [facility] Blood BLOOD SPECIMEN / Unknown Venipuncture / Unknown 01/22/2022 5:50 PM CDT 01/22/2022 5:57 PM CDT Narrative [facility] - 01/22/2022 6:32 PM CDT Ethanol Interp <10: None Detected. Depression of METER/RELAY CRAFTSMAN: >100 mg/dl Potentially Critical: >250 mg/dl Potentially [...] Martinez MD LAB - CHEMISTRY THERESA COMBS [facility] Organization Address City/State/ZIP Co de Phone Number [facility] [address] [place] [address], [facility] [phone] * (ABNORMAL) URINE DRUG SCREEN IMMUNOASSAY (01/22/2022 5:47 PM CDT) Amphetamines Screen Urine Positive(A) Negative : < 1000 ng/mL 01/22/2022 6:12 PM [facility] Comment: Positive urine amphetamine screening results should be confirmed by another generally accepted non-immunological method such as gas chromatography or mass spectrometry. ? Barbiturates Screen Urine Negative Negative : < 200 ng/mL 01/22/2022 6:12 [facility] Benzodiazepine Screen Urine Negative Negative : < 200 ng/mL 01/22/2022 6:12 PM [facility] Opiates Urine Negative Negative : < 300 ng/mL 01/22/2022 6:12 PM [facility] Cocaine Metabolites Urine Negative Negative : < 300 ng/mL 01/22/2022 6:12 PM [facility] Phencyclidine Screen Urine Negative Negative : < 25 ng/ml 01/22/2022 6:12 PM [facility] Cannabinoids Screen Urine Positive(A) Negative : <50 ng/mL 01/22/2022 6:12 PM [facility] Comment:Positive urine canna binoids (THC) screening results should be confirmed by another generally accepted non-immunological method such as gas chromatography or mass spectrometry. Methadone Screen Urine Negative Negative : < 300 ng/mL 01/22/2022 6:12 PM [facility] Fentanyl Screen Urine Negative Negative : <1.5 ng/mL 01/22/2022 6:12 PM [facility] Urine URINE / Unknown Collection / Unknown 01/22/2022 5:47 PM CDT 01/22/2022 5:48 PM CDT Narrative [facility] - 01/22/2022 6:12 PM CDT The Urine Toxicology Screening Panel does not screen for Propoxyphene, Meprobamate, Carisoprodol, Trazodone, xlxw-xqf-oqbkcrr medications and/or volatiles (Acetone, Isopropanol, Methanol or Ethylene Glycol). Ethanol, Salicylate, Acetaminophen, Tricyclic Antidepressants and several therapeutic drugs may be individually assayed in serum or plasma specimen. Toxicology testing by the [facility] is an aid to medical diagnosis and treatment of patients. No documented chain of custody was maintained. Results are intended to be used for clinical purposes only. ? Lena Martinez MD LAB - URINE CHEMISTR Y ORDERABLES Performing Organization Address [facility] Co de Phone Number [facility] [address] [place] [address], [facility] [phone] documented in this encounter Visit Diagnoses Diagnosis [...]
--- OUTSIDE RECORDS SUMMARY | 2024-03-25 19:29 | XMS_ITS | Encounter Summary ---
Author Organization [facility] Address [address] [place] [address]. [place], [place] [address] [place] [address] Care Team Providers Care Straight Ruling Machine Operator Name Role Phone Antonio Nicholson Primary Care Provider [phone] Reason for Visit * Reason Comments Rash ingrown hairs in pub ic area Encounter Details Date Type Department Care Team (Late st Contact Info) Description 04/06/2021 10:00 AM FIRE INSPECTOR Office Visit [facility] Medical Group Family & Internal Medicine [facility] [address] [place] [address] Antonio Nicholson FNP [address] [place], [place] [phone] Rash (ingrown hairs in pubic area) Social [...] COVID-19? No / Unsure 04/06/2021 9:58 AM FIRE INSPECTOR documented as of this encounter Last Filed Vital Signs Vital Sign Reading Time Taken Comments Blood Pressure 114/69 04/06/2021 10:12 AM FIRE INSPECTOR Pulse 86 04/06/2021 10:12 AM FIRE INSPECTOR Temperature 36.3 ??C (97.3 ??F) 04/06/2021 10:[address] Respiratory Rate 16 04/06/2021 10:12 AM FIRE INSPECTOR Oxygen Saturation 99% 04/06/2021 10:12 AM FIRE INSPECTOR Inhaled Oxygen Concentration - - Weight 57.6 kg (127 lb) 04/06/2021 10:12 AM FIRE INSPECTOR Height 162.6 cm (5' 4 ) 04/06/2021 10:12 AM FIRE INSPECTOR Body Mass Index 21.8 04/06/2021 10:12 AM FIRE INSPECTOR documented in this encounter Patient Instructions * Patient Instructions* Antonio NicholsonCAROLYN - 04/06/2021 10:00 AM FIRE INSPECTOR Images from the original note were not [...] cared for. Where can I learn more? [employer] http://www.bad.org.uk/site/819/default.aspx Last Reviewed Date [...] for you. Copyright Copyright ?? 2017 [employer] and its affiliates and/or licensors. All rights reserved. INSPECTOR documented in this encounter Progress Notes * [...] and coordinationof care. PCP: CAROLYN VALENZUELA 04/06/2021 INSPECTOR documented in this encounter Plan of Treatment Not on file documented as of this encounter Results * XR CHEST PA+LAT (04/06/2021 10:53 AM FIRE INSPECTOR) Anatomical Region Laterality Modality Chest Radiographic María ging 04/06/2021 10:5 8 AM FIRE INSPECTOR Impressions 04/06/2021 11:01 AM FIRE INSPECTOR IMPRESSION: No radiographic evidence of active chest disease. Ordered By: ANTONIO NICHOLSON Interpreted By: Paul Stroud MD, 04/06/2021 10:58 AM Narrative 04/06/2021 11:01 AM FIRE INSPECTOR Examination: XR CHEST PA+LAT Exam time: 04/06/2021 [...] Stroud MD, 04/06/2021 10:58 AM Antonio Nicholson [facility] Final Result documented in this encounter Visit Diagnoses Diagnosis Folliculitis- Primary Other specified disease of hair and hair follicles Abscess Cellulitis and abscess of unspecified site Antibiotic-induced yeast infection Cough Personal history of COVID-19 documented in this encounter Additional Health Concerns Assessment Noted Time PHQ-9 Depression Total Score: 3 12/04/19 21 7:29 AM CDT documented as of this encounter Care Teams Straight Ruling Machine Operator Relationship Specialty Start Date End Date Antonio Nicholson FNP [address] [place] [address] PCP - General Nurse Practitioner Family 05/04/18 documented as of this encounter
--- OUTSIDE RECORDS SUMMARY | 2024-03-25 19:29 | XMS_ITS | Encounter Summary ---
Author Organization [facility] Address [address] [place] [address]. [place], [place] [address] [place] [address] Care Team Providers Care Polymer Scientist Name Role Phone Antonio Nicholson Primary Care Provider [phone] Reason for Visit * Reason Onset Date Comments Appointment Reminder 10/16/2021 Encounter Details Date Type Department Care Team (Late st Contact Info) Description 10/16/2021 Telephone [facility] Medical Group Family & Internal Medicine [facility] [address] [place] [address] Antonio Nicholson FNP [address] [place] [address] Appointment Reminder Social History Tobacco [...] in FAMILY PRACTICE was on: 04/06/2021 in [facility] No future appointments. [facility] #[id number] - [facility] [address] AT [facility] [address] [facility] [address] Current Outpatient Medications: ??? albuterol sulfate HFA [...] Moderate episode of recurrent major depressive disorder ([facility]) Attention deficit hyperactivity disorder (ADHD), combined type documented in this encounter Additional Health Concerns Assessment Noted Time PHQ-9 Depression Total Score: 3 12/04/19 21 7:29 AM CDT documented as of this encounter Care Teams Polymer Scientist Relationship Specialty Start Date End Date Antonio Nicholson FNP [address] [place] [address] PCP - General Nurse Practitioner Family 05/04/18 documented as of this encounter
--- OUTSIDE RECORDS SUMMARY | 2024-03-25 19:29 | XMS_ITS | Encounter Summary ---
Author Organization [facility] Address [address] [place] [address]. [place], [place] [address] [place] [address] Care Team Providers Care Design Maker Name Role Phone Cuca Dutton Primary Care Provider [phone] Encounter Details Date Type Department Care Team [...] as of this encounter Care Teams Design Maker Relationship Specialty Start Date End Date Cuca Dutton FNP [address] [place] [address] PCP - General Nurse Practitioner Family 05/04/18 documented as of this encounter
--- OUTSIDE RECORDS SUMMARY | 2024-03-25 19:29 | XMS_ITS | Encounter Summary ---
Author Organization [facility] Address [address] [place] [address]. [place], [place] [address] [place] [address] Care Team Providers Care Supervisor Multifocal Lens Name Role Phone Cuca Dutton Primary Care Provider [phone] Encounter Details Date Type Department Care Team [...] Total Score: 8 05/31/19 24 10:12 AM CHARACTER ACTRESS documented as of this encounter Care Teams Supervisor Multifocal Lens Relationship Specialty Start Date End Date Cuca Dutton FNP [address] [place] [address] PCP - General Nurse Practitioner Family 05/04/18 documented as of this encounter
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
--- OUTSIDE RECORDS SUMMARY | 2024-03-25 19:29 | XMS_ITS | Encounter Summary ---
Author Organization [facility] Address [address] [place] [address]. [place], [place] [address] [place] [address] Care Team Providers Care Muskrat Trapper Name Role Phone Cuca Dutton Primary Care Provider [phone] Reason for Visit * Reason Onset Date Comments Refill Request 05/22/2021 Encounter Details Date Type Department Care Team (Late st Contact Info) Description 05/22/2021 Telephone [facility] Family & Internal Medicine [facility] [address] [place] [address] Cuca Dutton FNP [address] [place] [address] Refill Request Social History Tobacco [...] vyvanse 50 mg' Venlafaxine 37.5 ' Pharmacy [facility] AINER FINISHING INSPECTOR documented in this encounter Plan of Treatment Not on file documented as of this encounter Visit Diagnoses Diagnosis Anxiety Anxiety state, unspecified Moderate episode of recurrent major depressive disorder ([facility]) Attention deficit hyperactivity disorder (ADHD), combined type documented in this encounter Additional Health Concerns Assessment Noted Time PHQ-9 Depression Total Score: 3 12/04/19 21 7:29 AM CDT documented as of this encounter Care Teams Muskrat Trapper Relationship Specialty Start Date End Date Cuca Dutton FNP [address] [place] [address] PCP - General Nurse Practitioner Family 05/04/18 documented as of this encounter
--- OUTSIDE RECORDS SUMMARY | 2024-03-25 19:29 | XMS_ITS | Encounter Summary ---
Author Organization [facility] Address [address] [place] [address]. [place], [place] [address] [place] [address] Care Team Providers Care Newspaper Vendor Name Role Phone Cuca Dutton Primary Care Provider [phone] Reason for Visit * Reason Onset Date Comments Medication Problem 06/06/2023 Encounter Details Date Type Department Care Team (Late st Contact Info) Description 06/06/2023 Telephone [facility] Medical Group Family & Internal Medicine [facility] [address] [place] [address] Cuca Dutton FNP [address] [place] [address] Medication Problem Social History Tobacco [...] Total Score: 8 05/31/19 24 10:12 AM HRIS MANAGER documented as of this encounter Care Teams Newspaper Vendor Relationship Specialty Start Date End Date Cuca Dutton FNP [address] [place] [address] PCP - General Nurse Practitioner Family 05/04/18 documented as of this encounter
--- OUTSIDE RECORDS SUMMARY | 2024-03-25 19:29 | XMS_ITS | Encounter Summary ---
Author Organization [facility] Address [address] [place] [address]. [place], [place] [address] [place] [address] Care Team Providers Care Belt Tender Name Role Phone Cuca Dutton Primary Care Provider [phone] Reason for Visit * Reason Comments Attention Deficit Hyperactivity Disorder F/u medication Encounter Details Date Type Department Care Team (Latest Contact Info) Description 11/23/2021 10:20 AM CDT [facility] [address] [place] [address] Cuac Dutton FNP [address] [place], [place] [phone] Attention Deficit Hyperactivity Disorder (F/u medication) Social [...] ear normal. Nose: Nose normal. Mouth/Throat: Lips: [place]. Mouth: Mucous membranes are moist. Dentition: Normal [...] documented as of this encounter Care Teams Belt Tender Relationship Specialty Start Date End Date Cuca Dutton FNP [address] [place] [address] PCP - General Nurse Practitioner Family 05/04/18 documented as of this encounter
--- OUTSIDE RECORDS SUMMARY | 2024-03-25 19:29 | XMS_ITS | Encounter Summary ---
Author Organization [facility] Address [address] [place] [address]. [place], [place] [address] [place] [address] Care Team Providers Care Blind Aide Name Role Phone Cuca Dutton Primary Care Provider [phone] Reason for Visit * Reason Onset Date Comments Medication Request 02/21/2023 Encounter Details Date Type Department Care Team (Late st Contact Info) Description 02/21/2023 Telephone [facility] Medical Group Family & Internal Medicine [facility] [address] [place] [address] Cuca Dutton FNP [address] [place] [address] Medication Request Social History Tobacco [...] an appointment if symptoms do not resolve. RTILITY MEDICAL ASSISTANT * Faizan Osuna MD - 02/21/2023 4:51 PM CST Flagyl 500mg bid x 7 days RTILITY MEDICAL ASSISTANT * Emily Eason MA - 02/21/2023 7:51 AM CST Patient is requesting a rx for Bacterial vaginosis. Vaginal odor and discharge. Has had this in thepast . Allergic to sulfa [facility][phone] RTILITY MEDICAL ASSISTANT documented in this encounter Plan of Treatment Not on file documented as of this encounter Visit Diagnoses Diagnosis Bacterial vaginosis- Primary Vaginitis and vulvovaginitis, unspecified documented in this encounter Additional Health Concerns Assessment Noted Time PHQ-9 Depression Total Score: 4 11/24/19 22 11:18 AM CDT documented as of this encounter Care Teams Blind Aide Relationship Specialty Start Date End Date Cuca Dutton FNP [address] [place] [address] PCP - General Nurse Practitioner Family 05/04/18 documented as of this encounter
--- OUTSIDE RECORDS SUMMARY | 2024-03-25 19:29 | XMS_ITS | Encounter Summary ---
Author Organization [facility] Address [address] [place] [address]. [place], [place] [address] [place] [address] Care Team Providers Care Distribution Lineman Name Role Phone Cuca Dutton Primary Care Provider [phone] Reason for Visit * Reason Onset Date Comments Refill Request 03/17/2021 Encounter Details Date Type Department Care Team (Late st Contact Info) Description 03/17/2021 Telephone [facility] Medical Group Family & Internal Medicine [facility] [address] [place] [address] Cuca Dutton FNP [address] [place] [address] Refill Request Social History Tobacco [...] to pharmacy , patient notified and v/u STANT STRENGTH COACH * CAROLYN Martin - 03/17/2021 9:48 AM CST We can prescribe the 37.5 mg daily dsp 90 STANT STRENGTH COACH * Shelly Durbin - 03/17/2021 8:06 AM CST Patient states that she is wanting to start weaning off of the Venlafaxine. She is due for a refill, she is asking if we can prescribe her a lower dose to help her start weaning off of it. STANT STRENGTH COACH documented in this encounter Plan of Treatment Not on file documented as of this encounter Visit Diagnoses Diagnosis Anxiety Anxiety state, unspecified Moderate episode of recurrent major depressive disorder ([facility]) documented in this encounter Additional Health Concerns Assessment Noted Time PHQ-9 Depression Total Score: 3 12/04/19 21 7:29 AM CDT documented as of this encounter Care Teams Distribution Lineman Relationship Specialty Start Date End Date Cuca Dutton FNP [address] [place] [address] PCP - General Nurse Practitioner Family 05/04/18 documented as of this encounter
--- OUTSIDE RECORDS SUMMARY | 2024-03-25 19:29 | XMS_ITS | Encounter Summary ---
Author Organization [facility] Address [address] [place] [address]. [place], [place] [address] [place] [address] Care Team Providers Care Sewing Machine Operator Semiautomatic Name Role Phone Cuca Dutton Primary Care Provider [phone] Reason for Referral * Consultation (Routine) - [...] VISIT,EST,LEVL V Cuca Dutton FNP [address] [place] [address] Phone: tel: fax: Niki Lopez MD Phone: tel: fax: Referral ID Status Reason Start Date Expiration Date Visits Requested Visits Authorized [id number] Authorized Specialty Services 06/09/2023 06/08/2024 99 99 Reason for Visit * Reason Onset Date Comments Problem 06/07/2023 Prior auth- Zepb ound Encounter Details Date Type Department Care Team (Late st Contact Info) Description 06/07/2023 Telephone [facility] Medical Group Family & Internal Medicine [place] [address] [place] [phone] Cuca Dutton FNP [address] [place], [place] [phone] Problem (Prior auth- Zepbound) Social History Tobacco [...] inj, Called [facility] and spoke to [facility] and stated is noted medication is on covered on her plan. Transferred to the Benefits Review Dept and spoke to [facility]. Again informed medication is not covered on her plan and Denied-Case# [id number]. la,rma documented in this encounter Plan of [...] Total Score: 8 05/31/19 24 10:12 AM TRIM SAWYER documented as of this encounter Care Teams Sewing Machine Operator Semiautomatic Relationship Specialty Start Date End Date Cuca Dutton FNP [address] [place] [address] PCP - General Nurse Practitioner Family 05/04/18 documented as of this encounter
--- OUTSIDE RECORDS SUMMARY | 2024-03-25 19:29 | XMS_ITS | Encounter Summary ---
Author Organization [facility] Address [address] [place] [address]. [place], [place] [address] [place] [address] Care Team Providers Care Spice [place] [employer] Mill Name Role Phone Cuca Dutton Primary Care Provider Reason for Visit * Reason Onset Date Comments UTI 11/18/2023 Encounter Details Date Type Department Care Team (Late st Contact Info) Description 11/18/2023 Telephone [facility] Medical Group Family & Internal Medicine [facility] [address] [place] [address] Cuca Dutton FNP [address] [place], [place] [phone] UTI Social History Tobacco Use Types Packs/Day [...] where? Home Covid test: Call back #: [phone] Allergies: Allergies Allergen Reactions Sulfa Antibiotics Hives Sulfamethoxazole-Trimethoprim Unknown Pharmacy: [facility] documented in this encounter Plan of Treatment Not on file documented as of this encounter Visit Diagnoses Diagnosis Dysuria- Primary documented in this encounter Additional Health Concerns Assessment Noted Time PHQ-9 Depression Total Score: 8 05/31/19 24 10:12 AM MANAGER LANDSCAPE documented as of this encounter Care Teams Spice [place] [employer] Relationship Specialty Start Date End Date Cuca Dutton FNP [address] [place] [address] PCP - General Nurse Practitioner Family 05/04/18 documented as of this encounter
--- OUTSIDE RECORDS SUMMARY | 2024-03-25 19:29 | XMS_ITS | Encounter Summary ---
Author Organization [facility] Address [address] [place] [address]. [place], [place] [id number] [place] [address] Care Team Providers Care Language Pathologist Name Role Phone Ccua Dutton Primary Care Provider [phone] Encounter Details Date Type Department Care Team [...] documented as of this encounter Care Teams Language Pathologist Relationship Specialty Start Date End Date Cuca Dutton FNP [address] [place] [id number] PCP - General Nurse Practitioner Family 05/04/18 documented as of this encounter
--- OUTSIDE RECORDS SUMMARY | 2024-03-25 19:29 | XMS_ITS | Encounter Summary ---
Author Organization [facility] Address [address] [place] [address]. [place], [place] [id number] [place] [id number] Care Team Providers Care K 9 Handler/ Deputy Name Role Phone Cuca Dutton Primary Care Provider [phone] Reason for Visit * Reason Onset Date Comments Refill Request 09/17/2021 Encounter Details Date Type Department Care Team (Late st Contact Info) Description 09/17/2021 Telephone [facility] Family & Internal Medicine [facility] [address] [place] [phone] Cuca Dutton FNP [address] [place] [address] Refill Request Social History Tobacco [...] is know to get them. [facility] [place]. documented in this encounter Plan of Treatment Not on file documented as of this encounter Visit Diagnoses Diagnosis Yeast infection- Primary Other and unspecified mycoses Attention deficit hyperactivity disorder (ADHD), combined type Moderate episode of recurrent major depressive disorder ([facility]) documented in this encounter Additional Health Concerns Assessment Noted Time PHQ-9 Depression Total Score: 3 12/04/19 21 7:29 AM CDT documented as of this encounter Care Teams K 9 Handler/ Deputy Relationship Specialty Start Date End Date Cuca Dutton FNP [address] [place] [phone] PCP - General Nurse Practitioner Family 05/04/18 documented as of this encounter
--- OUTSIDE RECORDS SUMMARY | 2024-03-25 19:29 | XMS_ITS | Encounter Summary ---
Author Organization [facility] Address [address] [place] [address]. [place], [place] [id number] [place] [address] Care Team Providers Care Donor Services Technician Name Role Phone Cuca Dutton Primary Care Provider [phone] Encounter Details Date Type Department Care Team (Late st Contact Info) Description 06/06/2023 Orders Only [facility] Family & Internal Medicine [address] [phone] Vicky Padilla, RTR Social History Tobacco Use [...] Total Score: 8 05/31/19 24 10:12 AM [employer]PPLY CHAIN PROCUREMENT MANAGER documented as of this encounter Care Teams Donor Services Technician Relationship Specialty Start Date End Date Cuca Dutton FNP [address] [place] [address] PCP - General Nurse Practitioner Family 05/04/18 documented as of this encounter
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
--- OUTSIDE RECORDS SUMMARY | 2024-03-25 19:29 | XMS_ITS | Encounter Summary ---
Author Organization [facility] Address [address] [place] [address]. [place], [place] [address] [place] [address] Care Team Providers Care Computer Technology Instructor Name Role Phone Cuca Dutton Primary Care Provider [phone] Encounter Details Date Type Department Care Team [...] as of this encounter Care Teams Computer Technology Instructor Relationship Specialty Start Date End Date Cuca Dutton FNP [address] [place] [id number] PCP - General Nurse Practitioner Family 05/04/18 documented as of this encounter
--- OUTSIDE RECORDS SUMMARY | 2024-03-25 19:29 | XMS_ITS | Encounter Summary ---
Author Organization [facility] Address [address] [place] [address]. [place], [place] [address] [place] [address] Care Team Providers Care [employer] Art Teacher Name Role Phone Cuca Dutton Primary Care Provider [phone] Encounter Details Date Type Department Care Team (Late st Contact Info) Description 12/11/2021 Orders Only [facility] Family & Internal Medicine - [place] [address] [place] [address] Cuca Dutton FNP [address] [place] [address] Social History Tobacco Use Types Packs/Day Years [...] documented as of this encounter Care Teams [employer] Art Teacher Relationship Specialty Start Date End Date Cuca Dutton FNP [address] [place] [address] PCP - General Nurse Practitioner Family 05/04/18 documented as of this encounter
--- OUTSIDE RECORDS SUMMARY | 2024-03-25 19:29 | XMS_ITS | Encounter Summary ---
Author Organization [facility] Address [address] [place] [address]. [place], [place] [address] [place] [address] Care Team Providers Care Rn Registry Name Role Phone Antonio Nicholson Primary Care Provider [phone] Reason for Visit * Reason Onset Date Comments Refill Request 09/08/2023 Encounter Details Date Type Department Care Team (Late st Contact Info) Description 09/08/2023 Telephone [facility] Family & Internal Medicine [facility] [address] [place] [address] Antonio Nicholson FNP [address] [place], [place] [id number] Refill Request Social History Tobacco Use Types [...] Medication and strength: Naltrexone Pharmacy: [facility] in [place] Call back #: [phone] Last office visit at this office: Last visit with ANTONIO NICHOLSON in FAMILY PRACTICE was on: 05/31/2023 in [facility] Future appointment scheduled: Future Appointments Date Time [...] Total Score: 8 05/31/19 24 10:12 AM HOLDER PILE DRIVING documented as of this encounter Care Teams Rn Registry Relationship Specialty Start Date End Date Antonio Nicholson FNP [facility] [place] [address] PCP - General Nurse Practitioner Family 05/04/18 documented as of this encounter
--- OUTSIDE RECORDS SUMMARY | 2024-03-25 19:29 | XMS_ITS | Clinical Summary ---
Author Organization [facility] Address [address] [place] [address]. [place] [address] [place] [address] Care Team Providers Care Mechanical Research Engineer Name Role Phone Cuca Dutton CAROLYN Primary Care Provider Allergies Active Allergy Reactions Criticality Noted Date [...] in partial remission, most recent episode mixed ([facility]) 05/31/2023 Metabolic disorder 05/31/2023 Acne vulgaris 11/23/2021 [...] Doc Med Group Lab (SCAN) 02/16/2024 Telephone [facility] Medical Group Family & Internal Medicine [address] [address] Cuca Dutton, CAROLYN Problem (Hematuria/Burning) [...] 03/18/2024 HEPATITIS PANEL,ACUTE Routine 05/19/2020 11:45 AM DATA CENTER MANAGER from Last 3 Months or Most Recently Relevant to Health Maintenance Results * OUTSIDE LAB (SCAN ORDER) (03/18/2024) 03/18/2024 us Doc [facility] Scanned SCANNING Final Resu lt * HEPATITIS PANEL,ACUTE (05/19/2020 11:45 AM DATA CENTER MANAGER) HAV IGM NON-REACTI VE NON-REACT NOAH [facility] Comment: For additional information, please refer to http://[facility] Toxicology.Soapbox Mobile/faq/ZOP536 (This link is being provided for informational/ [...] a test for HCV RNA (test code 80415) is suggested. For additional information please refer to http://US Toxicology.Snapwiz.Digitour Media/faq/SFF15v5 (This link is being provided for informational/ educational purposes only.) 05/19/2020 11:4 5 AM DATA CENTER MANAGER 05/19/2020 11:56 AM DATA CENTER MANAGER Narrative [facility] - 05/25/2020 9:42 AM DATA CENTER MANAGER FASTING:NO FASTING: NO [facility] Final Result [facility] [address] [place] [address] from Last 3 Months or Most Recently Relevant to Health Maintenance Insurance [facility] Care Teams Mechanical Research Engineer Relationship Specialty Start Date End Date Cuca Dutton FNP [facility] [place] [address] PCP - General Nurse Practitioner Family 05/04/18
--- OUTSIDE RECORDS SUMMARY | 2024-03-25 19:29 | XMS_ITS | Encounter Summary ---
Author Organization [facility] Address [address] [place] [address]. [place], [place] [address] [place] [address] Care Team Providers Care Business Librarian Name Role Phone Cuca Dutton Primary Care Provider [phone] Reason for Visit * Reason Onset Date Comments Callback 01/19/2022 Encounter Details Date Type Department Care Team (Late st Contact Info) Description 01/19/2022 Telephone [facility] Medical Group Family & Internal Medicine [facility] [address] [place] [phone] Ccua Dutton FNP [address] [place] [address] Callback Social History Tobacco Use [...] records requested. [facility] medical records fax number [phone] BB 02/05/2022 NG ROOM SUPERVISOR NG ROOM SUPERVISOR NG ROOM SUPERVISOR * CAROLYN Martin - 01/25/2022 11:17 AM [...] as of this encounter Care Teams Business Librarian Relationship Specialty Start Date End Date Cuca Dutton FNP [address] [place] [address] PCP - General Nurse Practitioner Family 05/04/18 documented as of this encounter
--- OUTSIDE RECORDS SUMMARY | 2024-03-25 19:29 | XMS_ITS | Encounter Summary ---
Author Organization [facility] Address [address] [place] [address]. [place], [place] [address] [place] [address] Care Team Providers Care Blue Line Operator Name Role Phone Cuca Dutton Primary Care Provider [phone] Encounter Details Date Type Department Care Team [...] Total Score: 8 05/31/19 24 10:12 AM CHEF documented as of this encounter Care Teams Blue Line Operator Relationship Specialty Start Date End Date Cuca Dutton FNP [address] [place] [address] PCP - General Nurse Practitioner Family 05/04/18 documented as of this encounter
--- OUTSIDE RECORDS SUMMARY | 2024-03-25 19:29 | XMS_ITS | Encounter Summary ---
Author Organization [facility] Address [address] [place] [address]. [place], [place] [address] [place] [address] Care Team Providers Care Single Resource Boss Name Role Phone Cuca Dutton Primary Care Provider [phone] Encounter Details Date Type Department Care Team [...] COVID-19? No / Unsure 04/06/2021 9:58 AM NURSE LICENSED PRACTICAL documented as of this encounter Plan of Treatment Not on file documented as of this encounter Visit Diagnoses Not on filedocumented in this encounter Additional Health Concerns Assessment Noted Time PHQ-9 Depression Total Score: 3 12/04/19 21 7:29 AM CDT documented as of this encounter Care Teams Single Resource Boss Relationship Specialty Start Date End Date Cuca Dutton FNP [address] [place] [address] PCP - General Nurse Practitioner Family 05/04/18 documented as of this encounter
--- OUTSIDE RECORDS SUMMARY | 2024-03-25 19:29 | XMS_ITS | Encounter Summary ---
Author Organization [facility] Address [address] [place] [address]. [place], [place] [address] [place] [address] Care Team Providers Care First Officer And Flight Instructor Name Role Phone Cuca Dutton CAROLYN Primary Care Provider [phone] Reason for Visit * Reason Onset Date Comments Information 07/29/2023 Encounter Details Date Type Department Care Team (Late st Contact Info) Description 07/29/2023 Telephone [facility] Medical Group Family Medicine - [place] [address] [facility], [address] [place] [phone] [place] [address] [place] [address] Information Social History Tobacco Use Types Packs/Day [...] ok she started on the Naltrexone. CB# [phone] documented in this encounter Plan of Treatment Not on file documented as of this encounter Visit Diagnoses Not on filedocumented in this encounter Additional Health Concerns Assessment Noted Time PHQ-9 Depression Total Score: 8 05/31/19 24 10:12 AM PREMIUM REPRESENTATIVE documented as of this encounter Care Teams First Officer And Flight Instructor Relationship Specialty Start Date End Date Cuca Dutton FNP [address] [place] [address] PCP - General Nurse Practitioner Family 05/04/18 documented as of this encounter
--- OUTSIDE RECORDS SUMMARY | 2024-03-25 19:29 | XMS_ITS | Encounter Summary ---
Author Organization [facility] Address [address] [place] [address]. [place], [place] [address] [place] [address] Care Team Providers Care Prune Washer Name Role Phone Cuca Dutton Primary Care Provider [phone] Encounter Details Date Type Department Care Team [...] Total Score: 8 05/31/19 24 10:12 AM BLUEPRINT CLERK documented as of this encounter Care Teams Prune Washer Relationship Specialty Start Date End Date Cuca Dutton FNP [address] [place] [address] PCP - General Nurse Practitioner Family 05/04/18 documented as of this encounter
--- OUTSIDE RECORDS SUMMARY | 2024-03-25 19:29 | XMS_ITS | Encounter Summary ---
Author Organization [facility] Address [address] [place] [address]. [address] [address] Care Team Providers Care Prawn Trawler Hand Name Role Phone Cuca Dutton Primary Care Provider [phone] Reason for Visit * Reason Onset Date Comments Medication 01/26/2022 Encounter Details Date Type Department Care Team (Late st Contact Info) Description 01/26/2022 Telephone [facility] Medical Group Family & Internal Medicine [place] [address] [place] [address] Cuca Dutton FNP [address] [place] [address] Medication Social History Tobacco Use [...] documented as of this encounter Care Teams Prawn Trawler Hand Relationship Specialty Start Date End Date Cuca Dutton FNP [address] [place] [address] PCP - General Nurse Practitioner Family 05/04/18 documented as of this encounter
--- OUTSIDE RECORDS SUMMARY | 2024-03-25 19:29 | XMS_ITS | Encounter Summary ---
Author Organization [facility] Address [address] [place] [address]. [place], [place] [address] [place] [address] Care Team Providers Care Instrument Fitter Name Role Phone Cuca Dutton Primary Care Provider [phone] Reason for Visit * Reason Onset Date Comments Results 04/06/2021 Encounter Details Date Type Department Care Team (Late st Contact Info) Description 04/06/2021 Telephone [facility] Group Family & Internal Medicine [place] [address] [place] [address] Cuca Dutton FNP [facility] [place] [address] Results Social History Tobacco Use [...] COVID-19? No / Unsure 04/06/2021 9:58 AM METAL FABRICATING INSPECTOR documented as of this encounter Progress Notes * Norma Araujo MA - 04/14/2021 8:10 AM CST This result has been viewed on mychart. L FABRICATING INSPECTOR * Norma Araujo MA - 04/08/2021 11:19 AM CST Lm 04/08/21 tn L FABRICATING INSPECTOR * Norma Araujo MA - 04/06/2021 1:04 PM CST ----- Message from CAROLYN Martin sent at 04/06/2021 12:46 PM METAL FABRICATING INSPECTOR ----- Normal chest x ray L FABRICATING INSPECTOR documented in this encounter Plan of Treatment Not on file documented as of this encounter Visit Diagnoses Not on filedocumented in this encounter Additional Health Concerns Assessment Noted Time PHQ-9 Depression Total Score: 3 12/04/19 21 7:29 AM CDT documented as of this encounter Care Teams Instrument Fitter Relationship Specialty Start Date End Date Cuca Dutton FNP [address] [place] [address] PCP - General Nurse Practitioner Family 05/04/18 documented as of this encounter
--- OUTSIDE RECORDS SUMMARY | 2024-03-25 19:29 | XMS_ITS | Encounter Summary ---
Author Organization [facility] Address [address] [place] [address]. [place], [place] [address] [place] [address] Care Team Providers Care Traction Power Engineer Name Role Phone Cuca Dutton Primary Care Provider [phone] Reason for Visit * Reason Onset Date Comments Vaginal Problem 11/25/2023 Encounter Details Date Type Department Care Team (Late st Contact Info) Description 11/25/2023 Telephone [facility] Medical Group Family & Internal Medicine [facility] [address] [place] [address] Cuca Dutton FNP [address] [place] [address] Vaginal Problem Social History Tobacco [...] for a yeast infection sent in to [facility]. documented in this encounter Plan of Treatment Not on file documented as of this encounter Visit Diagnoses Diagnosis Antibiotic-induced yeast infection- Primary documented in this encounter Additional Health Concerns Assessment Noted Time PHQ-9 Depression Total Score: 8 05/31/19 24 10:12 AM CRITICAL CARE PHYSICIAN documented as of this encounter Care Teams Traction Power Engineer Relationship Specialty Start Date End Date Cuca Dutton FNP [address] [place] [address] PCP - General Nurse Practitioner Family 05/04/18 documented as of this encounter
--- OUTSIDE RECORDS SUMMARY | 2024-03-25 19:29 | XMS_ITS | Encounter Summary ---
Author Organization [facility] Address [address] [place] [address]. [place], [place] [address] [place] [address] Care Team Providers Care Materials Director Name Role Phone Cuca Dutton Primary Care Provider [phone] Encounter Details Date Type Department Care Team [...] COVID-19? No / Unsure 04/06/2021 9:58 AM CELLULAR BIOLOGIST documented as of this encounter Plan of Treatment Not on file documented as of this encounter Visit Diagnoses Not on filedocumented in this encounter Additional Health Concerns Assessment Noted Time PHQ-9 Depression Total Score: 3 12/04/19 21 7:29 AM CDT documented as of this encounter Care Teams Materials Director Relationship Specialty Start Date End Date Cuca Dutton FNP [address] [place] [address] PCP - General Nurse Practitioner Family 05/04/18 documented as of this encounter
--- OUTSIDE RECORDS SUMMARY | 2024-03-25 19:29 | XMS_ITS | Encounter Summary ---
Author Organization [facility] Address [facility]. [place], [place] [address] [place] [address] Care Team Providers Care Tower Supervisor Name Role Phone Cuca Dutton Primary Care Provider [phone] Encounter Details Date Type Department Care Team (Late st Contact Info) Description 11/16/2021 Orders Only [facility] Medical Group Family & Internal Medicine - [place] [address] [place] [address] Cuca uDtton FNP [address] [place] [address] Social History Tobacco Use Types Packs/Day Years [...] documented as of this encounter Care Teams Tower Supervisor Relationship Specialty Start Date End Date Cuca Dutton FNP [address] [place] [address] PCP - General Nurse Practitioner Family 05/04/18 documented as of this encounter
--- OUTSIDE RECORDS SUMMARY | 2024-03-25 19:29 | XMS_ITS | Encounter Summary ---
Author Organization [facility] Address [address] [place] [address]. [place], [place] [address] [place] [address] Care Team Providers Care Conductor Sleeping Car Name Role Phone Cuca Dutton Primary Care Provider [phone] Reason for Visit * Reason Onset Date Comments Lab Results 06/02/2023 Encounter Details Date Type Department Care Team (Late st Contact Info) Description 06/02/2023 Telephone [facility] Medical Group Family & Internal Medicine [facility] [address] [place] [address] Cuca Dutton FNP [address] [place] [address] Lab Results Social History Tobacco [...] CST Patient informed and voiced understanding tn SION MERCHANDISE MANAGER * Norma Araujo MA - 06/02/2023 3:35 PM CST ----- Message from CAROLYN Martin sent at 06/02/2023 3:20 PM DIVISION MERCHANDISE MANAGER ----- Her labs show that she should continue taking a vitamin D supplement daily and a multiple vitamin Her other labs look good SION MERCHANDISE MANAGER documented in this encounter Plan of Treatment Not on file documented as of this encounter Visit Diagnoses Not on filedocumented in this encounter Additional Health Concerns Assessment Noted Time PHQ-9 Depression Total Score: 8 05/31/19 24 10:12 AM DIVISION MERCHANDISE MANAGER documented as of this encounter Care Teams Conductor Sleeping Car Relationship Specialty Start Date End Date Cuca Dutton FNP [address] [place] [address] PCP - General Nurse Practitioner Family 05/04/18 documented as of this encounter
--- OUTSIDE RECORDS SUMMARY | 2024-03-25 19:29 | XMS_ITS | Encounter Summary ---
Author Organization [facility] Address [address] [place] [address]. [place], [place] [address] [place] [address] Care Team Providers Care Vba Programmer Name Role Phone Cuca Dutton Primary Care Provider [phone] Reason for Visit * Reason Onset Date Comments Medication Request 07/15/2021 Encounter Details Date Type Department Care Team (Late st Contact Info) Description 07/15/2021 Telephone [facility] Medical Group Family & Internal Medicine [facility] [address] [place] [address] Cuca Dutton FNP [address] [place] [address] Medication Request Social History Tobacco [...] would call it in to her pharmacy- [facility] in [place]. If there are any concerns, please call and let her know. [phone] documented in this encounter Plan of Treatment Not on file documented as of this encounter Visit Diagnoses Diagnosis Attention deficit hyperactivity disorder (ADHD), combined type- Primary documented in this encounter Additional Health Concerns Assessment Noted Time PHQ-9 Depression Total Score: 3 12/04/19 21 7:29 AM CDT documented as of this encounter Care Teams Vba Programmer Relationship Specialty Start Date End Date Cuca Dutton FNP [address] [place] [address] PCP - General Nurse Practitioner Family 05/04/18 documented as of this encounter
--- OUTSIDE RECORDS SUMMARY | 2024-03-25 19:29 | XMS_ITS | Encounter Summary ---
Author Organization [facility] Address [address] [place] [address]. [place], [place] [address] [place] [address] Care Team Providers Care Clinical Data Assistant Name Role Phone Cuca Dutton Primary Care Provider [phone] Reason for Visit * Reason Onset Date Comments Problem 02/16/2024 Hematuria/Burnin g Encounter Details Date Type Department Care Team (Late st Contact Info) Description 02/16/2024 Telephone [facility] Medical Group Family & Internal Medicine [facility] [address] [place] [address] Cuca Dutton FNP [address] [place] [address] Problem (Hematuria/Burning) Social History Tobacco [...] Stated will just go to urgent. Suggested [facility] to avoid urgent care and stated cannot make it there either will just go to a local urgent care. La,rma WEB APPLICATION DEVELOPER * CAROLYN Martin - 02/16/2024 2:46 PM CST Okay to get UA WEB APPLICATION DEVELOPER * Hannah Avelar MA - 02/16/2024 1:32 PM CST Patient called c/o blood in urine and lower back pain. Some burning with urination. Ok to bring in for UA? [phone] WEB APPLICATION DEVELOPER documented in this encounter Plan of Treatment Not on file documented as of this encounter Visit Diagnoses Not on filedocumented in this encounter Additional Health Concerns Assessment Noted Time PHQ-9 Depression Total Score: 8 05/31/19 24 10:12 AM LEAD WEB APPLICATION DEVELOPER documented as of this encounter Care Teams Clinical Data Assistant Relationship Specialty Start Date End Date Cuca Dutton FNP [address] [place] [address] PCP - General Nurse Practitioner Family 05/04/18 documented as of this encounter
--- OUTSIDE RECORDS SUMMARY | 2024-03-25 19:30 | XMS_ITS | Encounter Summary ---
Author Organization [facility] Address [address] [place] [address]. [place], [place] [address] [place] [address] Care Team Providers Care Rn Intensive Care Unit Name Role Phone Cuca Dutton CAROLYN Primary Care Provider [phone] Reason for Visit * Reason Onset Date Comments After Hours Page 11/09/2020 lost med Encounter Details Date Type Department Care Team (Late st Contact Info) Description 11/09/2020 Telephone [facility] Medical Group Family Medicine [address] [address] Maricel Baker F[address] [address] After Hours Page (lost med) [...] on Vyvanse and she just returned from [facility]. She realized she did not have her Vyvanse. She had filled on 10/15; advised I cannot fill early based on controlled substance agreement but would send you a message so you are aware. Also signed her up for [employer]. Link sent to her email and removed her mother's email. documented in this encounter Plan of Treatment Not on file documented as of this encounter Visit Diagnoses Not on filedocumented in this encounter Additional Health Concerns Assessment Noted Time PHQ-9 Depression Total Score: 13 021 10:36 AM APPLICATIONS ADMINISTRATOR documented as of this encounter Care Teams Rn Intensive Care Unit Relationship Specialty Start Date End Date Cuca Dutton FNP [address] [place] [address] PCP - General Nurse Practitioner Family 05/04/18 documented as of this encounter
--- OUTSIDE RECORDS SUMMARY | 2024-03-25 19:30 | XMS_ITS | Encounter Summary ---
Author Organization [facility] Address [address] [place] [address]. [place], [place] [address] [place] [address] Care Team Providers Care Bottling Machine Operator Name Role Phone Cuca Dutton Primary Care Provider [phone] Encounter Details Date Type Department Care Team [...] Depression Total Score: 13 021 10:36 AM CORE DRILLER HELPER documented as of this encounter Care Teams Bottling Machine Operator Relationship Specialty Start Date End Date Cuca Dutton FNP [address] [place] [address] PCP - General Nurse Practitioner Family 05/04/18 documented as of this encounter
--- OUTSIDE RECORDS SUMMARY | 2024-03-25 19:30 | XMS_ITS | Encounter Summary ---
Author Organization [facility] Address [address] [place] [address]. [place], [place] [address] [place] [address] Care Team Providers Care Ski Patrol Director Name Role Phone Cuca Dutton CAROLYN Primary Care Provider [phone] Reason for Visit * Reason Comments Tuberculosis tb screening Encounter Details Date Type Department Care Team (Latest Contact Info) Description 09/18/2020 1:40 PM CDT Allied Health/Nurse Visit [facility] Medical Group Family & Internal Medicine [address] [phone] Tuberculosis (tb screening) Social History Tobacco Use [...] Depression Total Score: 13 021 10:36 AM RAILROAD CAR CLEANING SUPERVISOR documented as of this encounter Care Teams Ski Patrol Director Relationship Specialty Start Date End Date Cuca Dutton FNP [address] [place] [address] PCP - General Nurse Practitioner Family 05/04/18 documented as of this encounter
--- OUTSIDE RECORDS SUMMARY | 2024-03-25 19:30 | XMS_ITS | Encounter Summary ---
Author Organization [facility] Address [address] [place] [address]. [place], [place] [address] [place] [address] Care Team Providers Care Commercial Or Institutional Cleaner Name Role Phone Cuca Dutton CAROLYN Primary Care Provider [phone] Reason for Visit * Reason Comments CT (SCAN) Ultrasound (SCAN) Encounter Details Date Type Department Care Team ([facility] Contact Info) Description 09/05/2018 Scan [facility] [...] on filedocumented in this encounter Care Teams Commercial Or Institutional Cleaner Relationship Specialty Start Date End Date Cuca Dutton FNP [address] [place] [address] PCP - General Nurse Practitioner Family 05/04/18 documented as of this encounter
--- OUTSIDE RECORDS SUMMARY | 2024-03-25 19:30 | XMS_ITS | Encounter Summary ---
Author Organization [facility] Address [id number]. [place], [place] [address] [place] [address] Care Team Providers Care Dust Mixer Name Role Phone Cuca Dutton Primary Care Provider [phone] Encounter Details Date Type Department Care Team (Late st Contact Info) Description 11/15/2018 Orders Only [facility] Family & Internal Medicine [facility] [address] [place] [address] Norma Araujo MA Social History Tobacco Use [...] on filedocumented in this encounter Care Teams Dust Mixer Relationship Specialty Start Date End Date Cuca Dutton FNP [address] [place] [address] PCP - General Nurse Practitioner Family 05/04/18 documented as of this encounter
--- OUTSIDE RECORDS SUMMARY | 2024-03-25 19:30 | XMS_ITS | Encounter Summary ---
Author Organization [facility] Address [address] [place] [address]. [place], [place] [address] [place] [address] Care Team Providers Care Rater Associate Name Role Phone Cuca Dutton Primary Care Provider [phone] Reason for Referral * (Routine) - Closed Specialty Diagnoses / Procedures Referred By Contac t Referred To Contact Diagnoses Vaginal odor At risk for sexually transmitted disease due to unprotected sex Procedures VAGINITIS SCREEN ([facility] ONLY) Cuca Dutton FNP [address] [place] [address] Phone: tel: fax: Referral ID Status Reason Start Date Expiration Date Visits Re quested Visits Authorized [id number] Closed 05/19/2020 06/16/2021 1 1 ICITY DIRECTOR Reason for Visit * Reason Comments Vaginal Problem Depression Encounter Details Date Type Department Care Team (Late st Contact Info) Description 05/19/2020 10:00 AM PUBLICITY DIRECTOR Office Visit [facility] Family & Internal Medicine - [place] [address] [place] [address] Cuca Dutton FNP [address] [place] [address] Vaginal Problem; Depression Social History Tobacco Use [...] COVID-19? No / Unsure 05/19/2020 9:50 AM PUBLICITY DIRECTOR documented as of this encounter Last Filed Vital Signs Vital Sign Reading Time Taken Comments Blood Pressure 102/65 05/19/2020 10:25 AM PUBLICITY DIRECTOR Pulse 93 05/19/2020 10:25 AM PUBLICITY DIRECTOR Temperature 36.7 ??C (98.1 ??F) 05/19/2020 10:[address] Respiratory Rate 16 05/19/2020 10:25 AM PUBLICITY DIRECTOR Oxygen Saturation 99% 05/19/2020 10:25 AM PUBLICITY DIRECTOR Inhaled Oxygen Concentration - - Weight 58.1 kg (128 lb) 05/19/2020 10:25 AM PUBLICITY DIRECTOR Height 162.6 cm (5' 4 ) 05/19/2020 10:25 AM PUBLICITY DIRECTOR Body Mass Index 21.97 05/19/2020 10:25 AM PUBLICITY DIRECTOR documented in this encounter Patient Instructions * Patient Instructions* CAROLYN Martin - 05/19/2020 10:00 AM PUBLICITY DIRECTOR Take medications as directed and prescribed We will call you when your tests come back. Please abstain from sexual intercourse until testing comes back, as we discussed. Maintain scheduled follow up with your psychiatrist and mental health counselor Call for any further questions or concerns Follow up routinely or sooner if needed, especially if your symptoms do not improve. ICITY DIRECTOR ICITY DIRECTOR documented in this encounter Progress Notes * [...] file Gets together: Not on file Attends baptism service: Not on file Active member of [...] Moderate episode of recurrent major depressive disorder ([facility]) Recommendations and Plan: 1. Vaginal odor - [...] not an admission. PCP: CAROLYN VALENZUELA 05/21/2020 ICITY DIRECTOR * CAROLYN Martin - 05/19/2020 10:00 AM CST Labs are negative for any STDs. Vitamin d could be higher. She should be taking a vitamin d 3 supplement daily. Take a vitamin b 12 supplement daily. Other labs look good. ICITY DIRECTOR documented in this encounter Plan of Treatment [...] VAGINITIS SCREEN Routine 05/19/2020 12:2 7 PM PUBLICITY DIRECTOR Vaginal odor At risk for sexually transmitted disease due to unprotected sex RPR (MONITOR/CONGENITAL <6M) WITH REFLEX TO TITER Routine 05/19/2020 11:45 AM PUBLICITY DIRECTOR VITAMIN B12 / FOLATE Routine 05/19/2020 11:45 AM PUBLICITY DIRECTOR HIV AG/AB, 4TH GEN W/RFX Routine 05/19/2020 11:45 AM PUBLICITY DIRECTOR TSH W/REFLEX Routine 05/19/2020 11:45 AM PUBLICITY DIRECTOR VITAMIN D, 25 OH TOTAL Routine 11:45 AM PUBLICITY DIRECTOR CHLAMYDIA AND GC RNA TMA Routine 05/19/2020 11:45 AM PUBLICITY DIRECTOR HERPES SIMPLEX VIRUS IGG Routine 05/19/2020 11:45 AM PUBLICITY DIRECTOR URINE BACTERIA CULTURE Routine 1 11:45 AM PUBLICITY DIRECTOR COMPREHENSIVE METABOLIC PANEL Routine 05/19/2020 11:45 AM PUBLICITY DIRECTOR HEPATITIS PANEL,ACUTE Routine 05/19/2020 11:45 AM PUBLICITY DIRECTOR CBC W/DIFF AUTOMATED Routine 05/19/2020 11:45 AM PUBLICITY DIRECTOR URIC ACID BLOOD Routine 05/19/2020 11:45 AM PUBLICITY DIRECTOR MICHAEL PREP Routine 05/19/2020 11:00 AM PUBLICITY DIRECTOR Vaginal discharge SMEAR, STAIN, WET PREP Routine 1 11:00 AM PUBLICITY DIRECTOR Vaginal discharge URINE BACTERIA CULTURE Routine 10:56 AM PUBLICITY DIRECTOR Leukocytes in urine TEST URINE Routine 05/19/2020 Vaginal odor At risk for sexually transmitted disease due to unprotected sex URINALYSIS AUTO DIP Routine 05/19/2020 Vaginal odor documented in this encounter Results * VAGINITIS SCREEN ([facility] ONLY) (05/19/2020 12:27 PM PUBLICITY DIRECTOR) CHLAMYDIA TRACHOMATIS RNA TMA NOT DETECTED [facility] N.GONORRHOEAE RNA TMA (QST) NOT DETECTED [facility] Comment: REFERENCE RANGE: NOT DETECTED Methodology: Brand Activation Manager Mediated Amplification (TMA) to detect RNA. The analytical performance characteristics of this assay, when used to test SurePath(TM) specimens have been determined by [facility]. The modifications have not been cleared or approved by the FDA. This assay has been validated pursuant to the CLIA regulations and is used for clinical purposes. For additional information, please refer to https://education.InEdge/faq/PIB394 (This link is being provided for informational/ educational purposes only.) LACTOBACILLUS SPEC 6.9 Log (cells/m L) [facility] ATOPOBIUM VAGINAE RT-PCR NOT DETECTED Log (cells/m L) [facility] MEGASPHAERA SPECIES NOT DETECTED Log (cells/m L) [facility] GARDNERELLA VAGINALIS NOT DETECTED Log (cells/m L) [facility] BACTERIAL VAGINITIS NOT SUPPORTIVE [facility] Comment: REFERENCE RANGE: ??BV [...] analytical performance characteristics have been determined by [facility]. It has not been cleared or approved by FDA. This assay has been validated pursuant to the CLIA regulations and is used for clinical purposes. TRICHOMONAS NOT DETECTED [facility] Comment: REFERENCE RANGE: NOT DETECTED Methodology: Brand Activation Manager Mediated Amplification (TMA) For additional information, please refer to http://education.InEdge/faq/Trichomonastma (This link is being provided for informational/educational purposes only.) SHARDA ALBICANS PCR (BLD) NOT DETECTED [facility] SHARDA GLABRATA PCR (BLD) NOT DETECTED [facility] SHARDA TROPICALIS PCR (BLD) NOT DETECTED [facility] SHARDA PARAPSILOSIS PCR (BLD) NOT DETECTED [facility] Comment: REFERENCE RANGE: NOT DETECTED Methodology: Real-Time PCR This test was developed and its analytical performance characteristics have been determined by [facility]. It has not been cleared or approved by FDA. This assay has been validated pursuant to the CLIA regulations and is used for clinical purposes. CERVIX UTERI STRUCTURE / Unknown 05/19/2020 12:27 PM PUBLICITY DIRECTOR 05/20/2020 2:31 AM PUBLICITY DIRECTOR Cuca CHRISTINAP MICROBIOLOGY - GENERAL ORDERAB LES Final Result Performing Organization Address City/State/[facility] Co de Phone Number [facility] SoftwareInfectious Disease, [facility] [address] [place] [address] * CULTURE URINE (05/19/2020 11:45 AM PUBLICITY DIRECTOR) CULTURE RESULT [facility] Comment: ??CULTURE, URINE, ROUTINE ?Micro Number: ?[id number] ??Test Status: ? Final ??Specimen Source: ?? URINE, CLEAN CATCH ??Specimen Quality: ??Adequate ??Result: ?No Growth 05/19/2020 11:4 5 AM PUBLICITY DIRECTOR 05/19/2020 11:56 AM PUBLICITY DIRECTOR Narrative [facility] - MABLE ORDERS - 05/25/2020 9:42 AM PUBLICITY DIRECTOR FASTING:NO FASTING: NO Cuca Dutton [facility] MICROBIOLOGY - GENERAL ORDERAB LES Final Result Performing Organization Address [facility] Co de Phone Number [facility] - MABLE ORDERS [facility] [address] [place] [address] * RPR (MONITOR) W/RFX TO TITER (05/19/2020 11:45 AM PUBLICITY DIRECTOR) RPR NON-REACTIV E NON-REACTI VE [facility] 05/19/2020 11:4 5 AM PUBLICITY DIRECTOR 05/19/2020 11:56 AM PUBLICITY DIRECTOR Narrative [facility] - MABLE ORDERS - 05/25/2020 9:42 AM PUBLICITY DIRECTOR FASTING:NO FASTING: NO Cuca Dutton [facility] LABORATORY Final Result Performing Organization Address [facility] de Phone Number [facility] - MABLE ORDERS [facility] [address] [place] [address] * CHLAMYDIA AND GC RNA TMA (05/19/2020 11:45 AM PUBLICITY DIRECTOR) CHLAMYDIA TRACHOMATIS RNA TMA NOT DETECTED NOT DETECTED [facility] N.GONORRHOEAE RNA TMA (QST) NOT DETECTED NOT DETECTED [facility] COMMENT: [facility] Comment: The analytical performance characteristics of this assay, when used to test SurePath(TM) specimens have been determined by [facility]. The modifications have not been cleared or approved by the FDA. This assay has been validated pursuant to the CLIA regulations and is used for clinical purposes. For additional information, please refer to https://education.InEdge/faq/LEI066 (This link is being provided for information/ educational purposes only.) 05/19/2020 11:4 5 AM PUBLICITY DIRECTOR 05/19/2020 11:56 AM PUBLICITY DIRECTOR Narrative [facility] - MABLE ORDERS - 05/25/2020 9:42 AM PUBLICITY DIRECTOR FASTING:NO FASTING: NO Cuca Dutton [facility] MICROBIOLOGY - GENERAL ORDERAB LES Final Result [facility] - MABLE ORDERS [facility] [address] [place] [address] * VITAMIN D, 25 OH TOTAL (05/19/2020 11:45 AM PUBLICITY DIRECTOR) Pathologist [facility] VITAMIN D 25 HYDROXY TOTAL S/P/B 40 [...] D, (D2,D3), LC/MS/MS is recommended: order code 81981 (patients >2yrs). See Note 1 Note 1 For additional information, please refer to http://education.[employer]/faq/XAI733 (This link is being provided for informational/ educational purposes only.) 05/19/2020 11:4 5 AM PUBLICITY DIRECTOR 05/19/2020 11:56 AM PUBLICITY DIRECTOR Narrative [facility] - MABLE ORDERS - 05/25/2020 9:42 AM PUBLICITY DIRECTOR FASTING:NO FASTING: NO Cuca Dutton EDUCATION REP LABORATORY Final Result [facility] MABLE [facility] [address] [address] * TSH W/REFLEX (05/19/2020 11:45 AM PUBLICITY DIRECTOR) Pathologist [facility] TSH 0.44 mIU/L [facility] Comment: ?Reference Range ?> or = 20 Years ??0.40-4.50 ? Ranges ?First trimester ?0.26-2.66 ?Second trimester ?? 0.55-2.73 ?Third trimester ?0.43-2.91 05/19/2020 11:4 5 AM PUBLICITY DIRECTOR 05/19/2020 11:56 AM PUBLICITY DIRECTOR Narrative [facility] - MABLE ORDERS - 05/25/2020 9:42 AM PUBLICITY DIRECTOR FASTING:NO FASTING: NO Cuca Dutton EDUCATION REP LABORATORY Final Result [facility] MABLE ORD[facility] [address] [place] [address] * VITAMIN B12 / FOLATE (05/19/2020 11:45 AM PUBLICITY DIRECTOR) Pathologist [facility] VITAMIN B12 S/P/B 677 200 - 1,100 pg/mL [facility] FOLATE >24.0 ng/mL [facility] Comment: ? Reference Range ? Low: ? <3.4 ? Borderline: ?3.4-5.4 ? Normal: ?>5.4 05/19/2020 11:4 5 AM PUBLICITY DIRECTOR 05/19/2020 11:56 AM PUBLICITY DIRECTOR Narrative [facility] - MABLE ORDERS - 05/25/2020 9:42 AM PUBLICITY DIRECTOR FASTING:NO FASTING: NO us Cuca Dutton [facility] Final Result Performing Organization Address [facility] de Phone Number [facility] [address] [place] [address] * HIV AB, 4TH GEN (QST) (05/19/2020 11:45 AM PUBLICITY DIRECTOR) HIV 1/2 AB+ HIV1 P24 AG NON-REACT BERNABE NON-REACT BERNABE [facility] Comment: HIV-1 antigen and HIV-1/HIV-2 antibodies were [...] ?? For additional information please refer to http://education.InEdge/faq/FPZ834 (This link is being provided for informational/ educational purposes only.) The performance of this assay has not been clinically validated in patients less than 2 years old. 05/19/2020 11:4 5 AM PUBLICITY DIRECTOR 05/19/2020 11:56 AM PUBLICITY DIRECTOR Narrative [facility] - MABLE ORDERS - 05/25/2020 9:42 AM PUBLICITY DIRECTOR FASTING:NO FASTING: NO Cuca Blackwellchristina [facility] Final Result Performing Organization Address [facility] Co de Phone Number [facility] MABLE [facility] [address] [facility] [place] [address] * HERPES SIMPLEX VIRUS IGG (05/19/2020 11:45 AM PUBLICITY DIRECTOR) HSV IGG TYPE 1 <0.90 index [facility] [...] patients, or screening. 05/19/2020 11:4 5 AM PUBLICITY DIRECTOR 05/19/2020 11:56 AM PUBLICITY DIRECTOR Narrative [facility] - MABLE ORDERS - 05/25/2020 9:42 AM PUBLICITY DIRECTOR FASTING:NO FASTING: NO Cuca [facility] LABORATORY Final Result Performing Organization Address City/State/[facility] Phone Number [facility] MABLE ORD[facility] [address] [place] [address] * CBC W/DIFF AUTOMATED (05/19/2020 11:45 AM PUBLICITY DIRECTOR) Pathologist [facility] WBC 5.6 3.8 - 10.8 Thousand/u L [...] [facility] 05/19/2020 11:4 5 AM PUBLICITY DIRECTOR 05/19/2020 11:56 AM PUBLICITY DIRECTOR Narrative [facility] MABLE ORDERS - 05/25/2020 9:42 AM PUBLICITY DIRECTOR FASTING:NO FASTING: NO Cuca [facility] LABORAT[facility] Final Result [facility] MABLE [facility] [address] [place] [address] * COMPREHENSIVE METABOLIC PANEL (05/19/2020 11:45 AM PUBLICITY DIRECTOR) [facility] GLUCOSE 117 65 - 139 mg/dL [facility] Comment: ? Non-fasting reference interval BUN 8 7 - 25 mg/dL [facility] CREATININE S/P/B 0.73 0.50 - 1.10 mg/dL [facility] EGFR NON-AFR. AMER. 119 > OR = 60 mL/min/1. 73m2 [facility] EGFR AFR. AMER. 137 > OR = 60 mL/min/1. 73m2 [facility] BUN CREATININE RATIO NOT APPLICABLE 6 - 22 (calc) [facility] SODIUM S/P/B 139 135 - 146 mmol/L [facility] POTASSIUM S/P/B 4.1 3.5 - 5.3 mmol/L [facility] CHLORIDE S/P/B 106 98 - 110 mmol/L [facility] CO2 27 20 - 32 mmol/L [facility] CALCIUM S/P/B 9.2 8.6 - 10.2 mg/dL [facility] TOTAL PROTEIN S/P/B 6.4 6.1 - 8.1 g/dL [facility] ALBUMIN S/P/B 4.5 3.6 - 5.1 g/dL [facility] GLOBULIN 1.9 1.9 - 3.7 g/dL (calc) [facility] ALBUMIN/GLOBULI N RATIO 2.4 1.0 - 2.5 (calc) [facility] BILIRUBIN TOTAL S/P/B 0.8 0.2 - 1.2 mg/dL [facility] ALKALINE PHOSPHATASE S/P/B 68 31 - 125 U/L [facility] AST 15 10 - 30 U/L [facility] ALT 9 6 - 29 U/L [facility] 05/19/2020 11:4 5 AM PUBLICITY DIRECTOR 05/19/2020 11:56 AM PUBLICITY DIRECTOR Narrative [facility] MABLE ORDERS - 05/25/2020 9:42 AM PUBLICITY DIRECTOR FASTING:NO FASTING: NO Cuca [facility] LAB[facility]AT[facility] Final Result [facility] MABLE [facility] [address] [address] * URIC ACID BLOOD (05/19/2020 11:45 AM PUBLICITY DIRECTOR) URIC ACID 4.1 2.5 - 7.0 mg/dL [facility] Comment: Therapeutic target for gout patients: <6.0 mg/dL ?? 05/19/2020 11:4 5 AM PUBLICITY DIRECTOR 05/19/2020 11:56 AM PUBLICITY DIRECTOR Narrative [facility] MABLE ORDERS - 05/25/2020 9:42 AM PUBLICITY DIRECTOR FASTING:NO FASTING: NO Cuca Dutton EDUCATION REP LABORATORY Final Result [facility] MABLE [facility] [address] [place] [address] * HEPATITIS PANEL,ACUTE (05/19/2020 11:45 AM PUBLICITY DIRECTOR) HAV IGM NON-REACTI VE NON-REACT BERNABE [facility] Comment: For additional information, please refer to http://[employer].InEdge/faq/XQV562 (This link is being provided for informational/ [...] a test for HCV RNA (test code 24538) is suggested. For additional information please refer to http://[employer].InEdge/faq/TYI89d3 (This link is being provided for informational/ educational purposes only.) 05/19/2020 11:4 5 AM PUBLICITY DIRECTOR 05/19/2020 11:56 AM PUBLICITY DIRECTOR Narrative [facility] MABLE ORDERS - 05/25/2020 9:42 AM PUBLICITY DIRECTOR FASTING:NO FASTING: NO Cuca Dutton EDUCATION REP LABORATORY Final Result [facility] [address] [place] [address] * (ABNORMAL) SMEAR, STAIN, WET PREP (05/19/2020 11:00 AM PUBLICITY DIRECTOR) SPECIMEN SOURCE endocervi loki(Negat bernabe) [facility] WBC'S (WET PREP) many(A) [facility] RBC (WET PREP) none(Nega tive) [facility] EPITHELIAL CELLS (WET PREP) present(N egative) [facility] BACTERIA (U) NONE SEEN(Nega tive) NONE SEEN [facility] CLUE CELLS present(A ) [facility] TRICHOMONAS NEGATIVE( Negative) NEGATIVE [facility] FUNGAL ELEMENTS present(A ) [facility] OTHER none(Nega tive) [facility] ENDOCERVICAL STRUCTURE / Unknown 05/19/2020 11:00 AM PUBLICITY DIRECTOR [facility] MICROBIOLOGY - GENERAL ORDERAB LES Final Result Performing Organization Address City/[facility]/[place] [address], [place] * (ABNORMAL) MICHAEL PREP (05/19/2020 11:00 AM PUBLICITY DIRECTOR) SPECIMEN SOURCE endocervical [facility] WBC'S (WET PREP) many [facility] BACTERIA (U) NONE SEEN(Negative) NONE SEEN [facility] FUNGAL ELEMENTS few(A) [facility] ENDOCERVICAL STRUCTURE / Unknown 05/19/2020 11:00 AM PUBLICITY DIRECTOR [facility] MICROBIOLOGY - GENERAL ORDERAB LES Final Result Performing Organization Address [facility] [place] [address], [place] * CULTURE URINE (05/19/2020 10:56 AM PUBLICITY DIRECTOR) CULTURE RESULT [facility] Comment: ??CULTURE, URINE, ROUTINE ?Micro Number: ?[id number] ??Test Status: ? Final ??Specimen Source: ?? URINE ??Specimen Quality: ??Adequate ??Result: ?Growth of mixed karey was isolated, suggesting ? probable contamination. No further testing will ? be performed. If clinically indicated, ? recollection using a method to minimize ? contamination, with prompt transfer to Urine ? Culture Transport Tube, is recommended. URINE SPECIMEN FROM [facility] / Unknown 05/19/2020 10:56 AM PUBLICITY DIRECTOR 05/20/2020 2:30 AM PUBLICITY DIRECTOR Cuca Dutton EDUCATION REP MICROBIOLOGY - GENERAL ORDERAB LES Final Result Performing Organization Address [facility] Co de Phone Number [facility] [address] [place] [address] * TEST URINE (05/19/2020) Pathologist [facility] URINE HCG TEST NEGATIVE NEGATIVE [facility] Internal Control: VALID VALID [facility] URINE SPECIMEN FROM [facility] / Unknown 05/19/2020 Cuca Dutton EDUCATION REP URINE ORDERABLES Final Result Performing Organization Address [facility] de Phone Number [facility] [address] [place] [address], * URINALYSIS AUTO DIP (05/19/2020) COLOR (U) YELLOW [facility] TRANSPARENCY CLEAR [facility] GLUCOSE (U) NEGATIVE NEGATIVE MG/DL [facility] BILIRUBIN (U) NEGATIVE NEGATIVE [facility] MG/DL (U) 5 (TRACE) NEGATIVE MG/DL [facility] SPECIFIC GRAVITY (U) 1.030 1.001 - 1.035 [facility] BLOOD (U) NEGATIVE NEGATIVE [facility] U PH 6.0 5.0 - 9.0 [facility] PROTEIN (U) NEGATIVE NEGATIVE mg/dL [facility] UROBILINOGEN 1.0 0.2 - 1.0 EU/dL = mg/dL [facility] NITRITES NEGATIVE NEGATIVE MG/DL [facility] LEUKOCYTES (U) TRACE NEGATIVE [facility] [place] URINE SPECIMEN OBTAINED BY CLEAN CATCH PROCEDURE / Unknown 05/19/2020 Cuca LEON URINE ORDERABLES Final Result Performing Organization Address City/State/[facility] [place] [address], documented in this encounter Visit Diagnoses Diagnosis [...] Moderate episode of recurrent major depressive disorder ([facility]) documented in this encounter Additional Health Concerns Assessment Noted Time PHQ-9 Depression Total Score: 13 021 10:36 AM PUBLICITY DIRECTOR documented as of this encounter Care Teams Rater Associate Relationship Specialty Start Date End Date Cuca Dutton FNP [address] [place] [address] PCP - General Nurse Practitioner Family 05/04/18 documented as of this encounter
--- OUTSIDE RECORDS SUMMARY | 2024-03-25 19:30 | XMS_ITS | Encounter Summary ---
Author Organization [facility] Address [address] [place] [address]. [place], [place] [address] [place] [address] Care Team Providers Care Automobile Sales Representative Name Role Phone Cuca Dutton CAROLYN Primary Care Provider [phone] Reason for Visit * Reason Comments Allied Health Visit Encounter Details Date Type Department Care Team (Latest Contact Info) Description 09/10/2020 1:20 PM CDT Allied Health/Nurse Visit [facility] Family & Internal Medicine [address] [phone] Allied Health Visit Social History Tobacco Use [...] Total Score: 13 05/19/ 021 10:36 AM JUNIOR DATA ANALYST documented as of this encounter Care Teams Automobile Sales Representative Relationship Specialty Start Date End Date Cuca Dutton FNP [address] [place] [id number] PCP - General Nurse Practitioner Family 05/04/18 documented as of this encounter
--- OUTSIDE RECORDS SUMMARY | 2024-03-25 19:30 | XMS_ITS | Encounter Summary ---
Author Organization [facility] Address [address] [place] [address]. [place], [place] [address] [place] [address] Care Team Providers Care Plant Control Aide Name Role Phone Cuca Dutton Primary Care Provider [phone] Reason for Visit * Reason Onset Date Comments Vaginal Problem 12/16/2020 Encounter Details Date Type Department Care Team (Late st Contact Info) Description 12/16/2020 Telephone [facility] Medical Group Family & Internal Medicine [facility] [address] [place] [address] Cuca Dutton FNP [address] [place] [address] Vaginal Problem Social History Tobacco [...] documented as of this encounter Care Teams Plant Control Aide Relationship Specialty Start Date End Date Cuca Dutton FNP [address] [place] [address] PCP - General Nurse Practitioner Family 05/04/18 documented as of this encounter
--- OUTSIDE RECORDS SUMMARY | 2024-03-25 19:30 | XMS_ITS | Encounter Summary ---
Author Organization [facility] Address [address] [place] [address]. [place], [place] [address] [place] [address] Care Team Providers Care Cytology Manager Name Role Phone Cuca Dutton Primary Care Provider [phone] Encounter Details Date Type Department Care Team [...] Depression Total Score: 13 021 10:36 AM SMOKING TOBACCO PACKER HAND documented as of this encounter Care Teams Cytology Manager Relationship Specialty Start Date End Date Cuca Dutton FNP [address] [place] [address] PCP - General Nurse Practitioner Family 05/04/18 documented as of this encounter
--- OUTSIDE RECORDS SUMMARY | 2024-03-25 19:30 | XMS_ITS | Encounter Summary ---
Author Organization [facility] Address [address] [place] [address]. [place], [place] [address] [place] [address] Care Team Providers Care Quiller Operator Name Role Phone Cuca Dutton Primary Care Provider [phone] Reason for Visit * Reason Onset Date Comments Advise 04/18/2019 Encounter Details Date Type Department Care Team (Late st Contact Info) Description 04/18/[address] [facility] Medical Group Family & Internal Medicine [facility] [address] [place] [address] Cuca Dutton FNP [address] [place] [address] Advise Social History Tobacco Use [...] Martin - 04/18/2019 1:10 PM CST Noted ETING PR INTERN * Emily Eason MA - 04/18/2019 11:22 AM CST Patient wanted to let Cuca know she has an appt with ObGyn on Tuesday regarding her implant and starting an oral BC as well so she is taken care of. Patient wanted to thank her for all of her help regarding this and appreciates all the help. ETING PR INTERN documented in this encounter Plan of Treatment Not on file documented as of this encounter Visit Diagnoses Not on filedocumented in this encounter Care Teams Quiller Operator Relationship Specialty Start Date End Date Nato CAROLYN Thurman [address] [place] [address] PCP - General Nurse Practitioner Family 05/04/18 documented as of this encounter
--- OUTSIDE RECORDS SUMMARY | 2024-03-25 19:30 | XMS_ITS | Encounter Summary ---
Author Organization [facility] Address [address] [place] [address]. [place], [place] [address] [place] [address] Care Team Providers Care Crutch Maker Name Role Phone Cuca Dutton Primary Care Provider [phone] Reason for Visit * Reason Onset Date Comments Lab Results 11/21/2018 Encounter Details Date Type Department Care Team (Late st Contact Info) Description 11/21/2018 Telephone [facility] Medical Group Family & Internal Medicine [facility] [address] [place] [address] Cuca Dutton FNP [address] [place], [place] [phone] Lab Results Social History Tobacco Use Types [...] antibiotics, we can send her over to CREDIT ANALYSIS MANAGER or Derm. documented in this encounter Plan of Treatment Not on file documented as of this encounter Visit Diagnoses Not on filedocumented in this encounter Care Teams Crutch Maker Relationship Specialty Start Date End Date Cuca Dutton FNP [address] [place] [address] PCP - General Nurse Practitioner Family 05/04/18 documented as of this encounter
--- OUTSIDE RECORDS SUMMARY | 2024-03-25 19:30 | XMS_ITS | Encounter Summary ---
Author Organization [facility] Address [address] [place] [address]. [place], [place] [address] [place] [address] Care Team Providers Care Composite Assembler Name Role Phone Cuca Dutton CAROLYN Primary Care Provider [phone] Reason for Visit * Reason Comments Allied Health Visit PPD skin test Encounter Details Date Type Department Care Team (Latest Contact Info) Description 09/02/2020 10:00 AM CDT Allied Health/Nurse Visit [facility] Medical Group Family & Internal Medicine [address] [address] Allied Health Visit (PPD skin test) Social [...] Total Score: 13 05/19/ 021 10:36 AM PAI GOW DEALER documented as of this encounter Care Teams Composite Assembler Relationship Specialty Start Date End Date Cuca Dutton FNP [address] [place] [address] PCP - General Nurse Practitioner Family 05/04/18 documented as of this encounter
--- OUTSIDE RECORDS SUMMARY | 2024-03-25 19:30 | XMS_ITS | Encounter Summary ---
Author Organization [facility] Address [address] [place] [address]. [place], [place] [address] [place] [address] Care Team Providers Care Electrical Intern Name Role Phone Cuca Dutton Primary Care Provider [phone] Reason for Visit * Reason Comments Attention Deficit Hyperactivity Disorder follow up on medication Encounter Details Date Type Department Care Team (Latest Contact Info) Description 02/04/2021 8:40 AM ELECTRONICS RECYCLER Telemedicine [facility] Medical Group Family & Internal Medicine - [place] [address] [place] [address] Cuca Dutton FNP [address] [place] [address] Attention Deficit Hyperactivity Disorder (follow [...] COVID-19? Unable to assess 02/04/2021 6:25 AM ELECTRONICS RECYCLER documented as of this encounter Patient Instructions * Patient Instructions* CAROLYN Martin - 02/04/2021 8:40 AM ELECTRONICS RECYCLER Start taking increased dose of Vyvanse and [...] , 3 months or sooner if needed. TRONICS RECYCLER documented in this encounter Progress Notes * CAROLYN Martin - 02/04/2021 8:40 AM CSTSummary: ADHD, anxiety and depression f/u Office Progress Note Reason for Visit: Attention Deficit Hyperactivity Disorder (follow up on medication) I introduced and identified myself, received verbal consent from the patient to proceed with this video visit and made the patient aware that the same confidentiality and information systems specialist practices apply. The patient joined the video [...] Moderate episode of recurrent major depressive disorder ([facility]) - we discussed continuing her Venlafaxine daily [...] not an admission. PCP: CAROLYN VALENZUELA 02/04/2021 TRONICS RECYCLER documented in this encounter Plan of Treatment Not on file documented as of this encounter Visit Diagnoses Diagnosis Attention deficit hyperactivity disorder (ADHD), combined type- Primary Moderate episode of recurrent major depressive disorder ([facility]/HCC [facility]) Anxiety Anxiety state, unspecified documented in this encounter Additional Health Concerns Assessment Noted Time PHQ-9 Depression Total Score: 3 12/04/19 21 7:29 AM CDT documented as of this encounter Care Teams Electrical Intern Relationship Specialty Start Date End Date Cuca Dutton FNP [address] [place] [address] PCP - General Nurse Practitioner Family 05/04/18 documented as of this encounter
--- OUTSIDE RECORDS SUMMARY | 2024-03-25 19:30 | XMS_ITS | Encounter Summary ---
Author Organization [facility] Address [address] [place] [address]. [place], [place] [address] [place] [address] Care Team Providers Care Juice Standardizer Name Role Phone Cuca Dutton Primary Care Provider [phone] Reason for Visit * Reason Onset Date Comments Vaginal Problem 01/15/2019 Encounter Details Date Type Department Care Team (Late st Contact Info) Description 01/15/2019 Telephone [facility] Medical Group Family & Internal Medicine [place] [address] [place] [address] Cuca Dutton FNP [address] [place] [address] Vaginal Problem Social History Tobacco [...] has yeast infection. Allergic to sulfa [facility] Cb#[phone] documented in this encounter Plan of Treatment Not on file documented as of this encounter Visit Diagnoses Diagnosis Vaginal odor- Primary Unspecified symptom associated with female genital organs Yeast infection of the vagina Candidiasis of vulva and vagina documented in this encounter Care Teams Juice Standardizer Relationship Specialty Start Date End Date Cuca Dutton FNP [address] [place] [address] PCP - General Nurse Practitioner Family 05/04/18 documented as of this encounter
--- OUTSIDE RECORDS SUMMARY | 2024-03-25 19:30 | XMS_ITS | Encounter Summary ---
Author Organization [facility] Address [address] [place] [address]. [place], [place] [address] [place] [address] Care Team Providers Care Steamship Agent Name Role Phone Antonio Nicholson Primary Care Provider [phone] Reason for Visit * Reason Onset Date Comments UTI 02/28/2019 Encounter Details Date Type Department Care Team (Late st Contact Info) Description 02/28/2019 Telephone [facility] Medical Group Family & Internal Medicine [facility] [address] [place] [address] Antonio Nicholson FNP [address] [place], [place] [phone] UTI Social History Tobacco Use Types Packs/Day [...] to pharm Pt informed and expressed understanding TOMETER OPERATOR * CAROLYN Martin - 02/28/2019 12:29 PM CST Macrobid 100mg bid x 10d TOMETER OPERATOR * Emily Eason MA - 02/28/2019 8:43 AM CST The patient has the following symptom(s): Urinary frequency and burning Symptom(s) Started: 2 days ago OTC Medications tried: nothing Call back #: [phone] Allergies: Allergies Allergen Reactions ??? Sulfamethoxazole-Trimethoprim Unknown [facility] #[id number] [place] [id number] [phone] Last visit with ANTONIO NICHOLSON in FAMILY PRACTICE was on: 11/15/2018 in [facility] No future appointments. Current Outpatient Medications: ??? FLUCELVAX 0.5 ML Suspension Prefilled Syringe, ADM 0.5ML IM UTD, Disp: , Rfl: 0 ??? fluoxetine 20 MG capsule, Take 2 capsules (40 mg total) by mouth daily., Disp: 30 capsule, Rfl:6 ??? lidocaine 5 % cream, Mix with Desitin cream and apply up to 3 times daily, Disp: 30 g, Rfl: 1 TOMETER OPERATOR documented in this encounter Plan of Treatment Not on file documented as of this encounter Visit Diagnoses Diagnosis UTI (urinary tract infection)- Primary Urinary tract infection, site not specified documented in this encounter Care Teams Steamship Agent Relationship Specialty Start Date End Date Antonio Nicholson FNP [address] [place] [address] PCP - General Nurse Practitioner Family 05/04/18 documented as of this encounter
--- OUTSIDE RECORDS SUMMARY | 2024-03-25 19:30 | XMS_ITS | Encounter Summary ---
Author Organization [facility] Address [address] [place] [address]. [place], [place] [address] [place] [address] Care Team Providers Care Russet Repairer Name Role Phone Antonio Nicholson Primary Care Provider [phone] Reason for Visit * Reason Onset Date Comments Medication Problem 12/15/2020 Encounter Details Date Type Department Care Team (Late st Contact Info) Description 12/15/2020 Telephone [facility] Medical Group Family & Internal Medicine [facility] [address] [place] [address] Antonio Nicholson FNP [address] [place] [address] Medication Problem Social History Tobacco [...] in FAMILY PRACTICE was on: 08/28/2020 in [facility] No future appointments. [facility] #[id number] - [facility] [address] [facility] [address] [facility] [id number] Current Outpatient Medications: ??? hydrOXYzine 25 MG [...] Moderate episode of recurrent major depressive disorder ([facility]) documented in this encounter Additional Health Concerns Assessment Noted Time PHQ-9 Depression Total Score: 3 09/08/20 21 7:29 AM CDT documented as of this encounter Care Teams Russet Repairer Relationship Specialty Start Date End Date Antonio Nicholson FNP [address] [place] [address] PCP - General Nurse Practitioner Family 05/04/18 documented as of this encounter
--- OUTSIDE RECORDS SUMMARY | 2024-03-25 19:30 | XMS_ITS | Encounter Summary ---
Author Organization [facility] Address [address] [place] [address]. [place], [place] [address] [place] [address] Care Team Providers Care Job Press Feeder Name Role Phone Cuca Dutton Primary Care Provider [phone] Encounter Details Date Type Department Care Team [...] Depression Total Score: 13 021 10:36 AM SUPERVISOR PARKING LOT documented as of this encounter Care Teams Job Press Feeder Relationship Specialty Start Date End Date Cuca Dutton FNP [address] [place] [address] PCP - General Nurse Practitioner Family 05/04/18 documented as of this encounter
--- OUTSIDE RECORDS SUMMARY | 2024-03-25 19:30 | XMS_ITS | Encounter Summary ---
Author Organization [facility] Address [address] [place] [address]. [place], [place] [address] [place] [address] Care Team Providers Care Sole Blacker Name Role Phone Cuca Dutton Primary Care Provider [phone] Reason for Visit * Reason Onset Date Comments Vaginal Problem 12/04/2018 Encounter Details Date Type Department Care Team (Late st Contact Info) Description 12/04/2018 Telephone [facility] Medical Group Family & Internal Medicine [place] [address] [place] [address] Cuca Dutton FNP [address] [place] [address] Vaginal Problem Social History Tobacco [...] has yeast infection. Please advise gualberto hay #[phone] documented in this encounter Plan of Treatment Not on file documented as of this encounter Visit Diagnoses Diagnosis Yeast infection of the vagina- Primary Candidiasis of vulva and vagina documented in this encounter Care Teams Sole Blacker Relationship Specialty Start Date End Date Cuca Dutton FNP [address] [place] [address] PCP - General Nurse Practitioner Family 05/04/18 documented as of this encounter
--- OUTSIDE RECORDS SUMMARY | 2024-03-25 19:30 | XMS_ITS | Encounter Summary ---
Author Organization [facility] Address [address] [place] [address]. [place], [place] [address] [place] [address] Care Team Providers Care Collision Repairer Name Role Phone Cuca Dutton Primary Care Provider [phone] Encounter Details Date Type Department Care Team [...] documented as of this encounter Care Teams Collision Repairer Relationship Specialty Start Date End Date Cuca Dutton FNP [address] [place] [address] PCP - General Nurse Practitioner Family 05/04/18 documented as of this encounter
--- OUTSIDE RECORDS SUMMARY | 2024-03-25 19:30 | XMS_ITS | Encounter Summary ---
Author Organization [facility] Address [address] [place] [address]. [place], [place] [address] [place] [address] Care Team Providers Care Carry Out Clerk Name Role Phone Cuca Dutton CAROLYN Primary Care Provider [phone] Reason for Visit * Reason Comments Other Encounter Details Date Type Department Care Team (Late st Contact Info) Description 09/16/2020 2:40 PM CDT Allied Health/Nurse Visit [facility] Medical Group Family & Internal Medicine [address] [phone] Other Social History Tobacco Use Types Packs/Day [...] Depression Total Score: 13 021 10:36 AM FOREIGN EXCHANGE DEALER documented as of this encounter Care Teams Carry Out Clerk Relationship Specialty Start Date End Date Cuca Dutton FNP [address] [place] [address] PCP - General Nurse Practitioner Family 05/04/18 documented as of this encounter
--- OUTSIDE RECORDS SUMMARY | 2024-03-25 19:30 | XMS_ITS | Encounter Summary ---
Author Organization [facility] Address [address] [place] [address]. [place], [place] [address] [place] [address] Care Team Providers Care Cuff Stitcher Name Role Phone Cuca Dutton Primary Care Provider [phone] Reason for Visit * Reason Onset Date Comments Vaginal Problem 09/22/2020 Encounter Details Date Type Department Care Team (Late st Contact Info) Description 09/22/2020 Telephone [facility] Medical Group Family & Internal Medicine [facility] [address] [place] [address] Cuca Dutton FNP [address] [place] [address] Vaginal Problem Social History Tobacco [...] Patient notified. Prescription sent out. LL-09/22/20 * CAROLNY Martin - 09/22/2020 2:30 PM CDT Fluconazole 150 mg take one tablet now and may repeat in 72 hours dsp 2 * Skyla Escobedo - 09/22/2020 1:27 PM CDT Patient called in stating that she went floating this weekend and now she has a yeast infection. She stated that her symptoms are white discharge and itching. She is asking for two tablets. Pharmacy: [facility] documented in this encounter Plan of Treatment Not on file documented as of this encounter Visit Diagnoses Diagnosis Vaginal yeast infection- Primary Candidiasis of vulva and vagina documented in this encounter Additional Health Concerns Assessment Noted Time PHQ-9 Depression Total Score: 13 05/19/ 021 10:36 AM APRON TRIMMER documented as of this encounter Care Teams Cuff Stitcher Relationship Specialty Start Date End Date Cuca Dutton FNP [address] [place] [address] PCP - General Nurse Practitioner Family 05/04/18 documented as of this encounter
--- OUTSIDE RECORDS SUMMARY | 2024-03-25 19:30 | XMS_ITS | Encounter Summary ---
Author Organization [facility] Address [address] [place] [address]. [place], [place] [address] [place] [address] Care Team Providers Care Roller Shop Supervisor Name Role Phone Cuca Dutton Primary Care Provider [phone] Reason for Visit * Reason Onset Date Comments Refill Request 08/28/2019 Encounter Details Date Type Department Care Team (Late st Contact Info) Description 08/28/2019 Telephone [facility] Medical Group Family & Internal Medicine [facility] [address] [place] [address] Cuca Dutton FNP [address] [place], [place] [phone] Refill Request Social History Tobacco Use Types [...] would like a script for this. Preferred pharm-[facility] documented in this encounter Plan of Treatment Not on file documented as of this encounter Visit Diagnoses Diagnosis Yeast infection- Primary Other and unspecified mycoses documented in this encounter Care Teams Roller Shop Supervisor Relationship Specialty Start Date End Date Cuca Dutton FNP [address] [place] [address] PCP - General Nurse Practitioner Family 05/04/18 documented as of this encounter
--- OUTSIDE RECORDS SUMMARY | 2024-03-25 19:30 | XMS_ITS | Encounter Summary ---
Author Organization [facility] Address [address] [place] [address]. [place], [place] [address] [place] [address] Care Team Providers Care Claim Manager Name Role Phone Cuca Dutton Primary Care Provider [phone] Encounter Details Date Type Department Care Team [...] COVID-19? Unable to assess 02/04/2021 6:25 AM SANITARY AIDE documented as of this encounter Plan of Treatment Not on file documented as of this encounter Visit Diagnoses Not on filedocumented in this encounter Additional Health Concerns Assessment Noted Time PHQ-9 Depression Total Score: 3 12/04/19 21 7:29 AM CDT documented as of this encounter Care Teams Claim Manager Relationship Specialty Start Date End Date Cuca Dutton FNP [address] [place] [address] PCP - General Nurse Practitioner Family 05/04/18 documented as of this encounter
--- OUTSIDE RECORDS SUMMARY | 2024-03-25 19:30 | XMS_ITS | Encounter Summary ---
Author Organization [facility] Address [address] [place] [address]. [place], [place] [address] [place] [address] Care Team Providers Care Library Services Coordinator Name Role Phone Cuca Dutton Primary Care Provider [phone] Encounter Details Date Type Department Care Team [...] on filedocumented in this encounter Care Teams Library Services Coordinator Relationship Specialty Start Date End Date Cuca Dutton FNP [address] [place] [address] PCP - General Nurse Practitioner Family 05/04/18 documented as of this encounter
--- OUTSIDE RECORDS SUMMARY | 2024-03-25 19:30 | XMS_ITS | Encounter Summary ---
Author Organization [facility] Address [address] [place] [address]. 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 She has no new complaints [...] Gatherings with Friends and Family: ??? Attends Jain Services: ??? Active Member of Clubs or [...] Depression Total Score: 13 021 10:[address] documented as of this encounter Care Teams Supervisor Inventory Merchandising Relationship Specialty Start Date End Date Cuca Dutton FNP [address] [place] [address] PCP - General Nurse Practitioner Family 05/04/18 documented as of this encounter
--- OUTSIDE RECORDS SUMMARY | 2024-03-25 19:30 | XMS_ITS | Encounter Summary ---
Author Organization [facility] Address [address] [place] [address]. [place], [place] [address] [place] [address] Care Team Providers Care Flatcar Whacker Name Role Phone Cuca Dutton Primary Care Provider [phone] Encounter Details Date Type Department Care Team (Latest Contact Info) Description 11/15/2018 6:24 PM CDT - 11/15/2018 11:59 PM CDT Hospital Encounter [facility] [place] [address] Cuca Dutton FNP [address] [place], [place] [id number] Discharge Disposition: Home or Self Care (Routine [...] antibiotics, we can send her over to [facility] or Derm. documented in this encounter Plan [...] TO TITER (11/15/2018 9:39 AM CDT) Pathologist [facility] HSV 1 IGM SCREEN Negative Negative 11/20/19 19 4:03 PM CDT [employer] NICHOLE GALLEGOS HSV 2 IGM SCREEN Negative Negative 11/20/19 19 4:03 PM CDT [employer] ARIANEGIOVANA GALLEGOS Comment: The IFA procedure for measuring IgM antibodies to HSV 1 and HSV 2 detects both type-common and type-specific HSV antibodies. Thus, IgM reactivity to both HSV 1 and HSV 2 may represent crossreactive HSV antibodies rather than exposure to both HSV 1 and HSV 2. This test was developed and its analytical performance characteristics have been determined by [place]. It has not been cleared or approved by the FDA. This assay has been validated pursuant to the CLIA regulations and is used for clinical purposes. HSV 1 IGM TITER REPORT 9 4:03 PM CDT [employer] MARY GALLEGOS Comment:Not indicated HSV 2 IGM TITER REPORT 9 4:03 PM CDT [employer] MARY GALLEGOS Comment: Not indicated Test Performed by [employer], [employer] [facility], [address] [place], [place] Bill M.D., Ph.D., Director of Laboratories , CLIA [id number] 11/15/2018 9:39 AM CDT [facility]uca [facility] Final Result [facility] [address] [place] [address], [place] [phone] * HIV AG/AB, 4TH GEN W/RFX ([facility] ONLY) (11/15/2018 9:39 AM CDT) HIV 1/2 AB+ HIV1 P24 AG REPORT 11/18/2018 2:16 PM CDT [employer] THAKKARChandrikaGIOVANA ROSY Comment: HIV Ag/Ab, 4th Generation [...] old. For additional information, please refer to http://education.Wayin.Fibrenetix/faq/VYG569 Test Performed by Dennis Tatum [employer], [address] [place], [place] iBll M.D., Ph.D., Director of Laboratories , CLIA [id number] 11/15/2018 9:39 AM CDT Cuca [facility] Final Result Performing Organization Address [facility] Co de Phone Number [facility] [address] [place], [place] , [place] [phone] * SYPHILIS/RPR/VDRL; QUAL (11/15/2018 9:39 AM CDT) Pathologist [facility] RPR Nonreactive Nonreactive 11/18/2018 5:29 PM CDT [employer] [facility] [employer] [facility] RPR TITER REPORT 11/18/2018 5:29 PM CDT [employer] LORRIE SYED Comment: Not indicated. Test Performed by [employer] [place], [employer], [address] [place] [address] Mor[place] Bill M.D., Ph.D., Director of Laboratories , [place] [id number] 11/15/2018 9:39 AM CDT Cuca Dutton [facility] Final Result Performing Organization Address [facility] Co de Phone Number [employer] [facility] [address] [place], [place] , [place] [phone] * MISCELLANEOUS LAB TEST (11/15/2018 8:39 AM CDT) Pathologist [facility] TEST NAME: [id number] HERPES SIMPLEX VIRUS TYPE 1 AND 2 QUALITATIVE REAL TIME PCR 11/23/2018 3:41 PM CDT [facility] SPECIMEN TYPE SWAB 11/23/2018 3:45 PM CDT [facility] TEST RESULT: 11/23/2018 3:45 PM CDT [facility] Comment: HSV 1 DNA: ?Not Detected ? HSV 2 DNA: ?Not Detected This test was developed and its analytical performance characteristics have been determined by [employer] [place], [place]. It has not been cleared or approved by the U.S. Food and Drug Administration. This assay has been validated pursuant to the CLIA regulations and is used for clinical purposes. 11/15/2018 8:39 AM CDT Cuca Dutton [facility] Final Result Performing Organization Address [facility] de Phone Number [facility] [address] [place] [address], * MISCELLANEOUS LAB TEST (11/15/2018 8:39 AM CDT) Pathologist [facility] TEST NAME: [id number] VARICELLA ZOSTER VIRUS DNA REAL TIME PCR 11/23/2018 3:38 PM CDT [facility] SPECIMEN TYPE SWAB 11/23/2018 3:44 PM CDT [facility] TEST RESULT: 11/23/2018 3:44 PM CDT [facility] Comment: Not Detected This test was developed and its analytical performance characteristics have been determined by [employer] [place], [place]. It has not been cleared or approved by the FDA. This assay has been validated pursuant to the CLIA regulations and is used for clinical purposes. This test is performed pursuant to a license agreement with [employer] 11/15/2018 8:39 AM CDT us Cuca Dutton [facility] Final Result Performing Organization Address [facility] Co de Phone Number [facility] [address] [place] [address], * CULTURE CMV (11/15/2018 8:39 AM CDT) [facility] CYTOMEGALOVIRUS CULTURE REPORT 11/22/2018 5:05 PM CDT [employer] NICHOLE GALLEGOS Comment: Cytomegalovirus Rapid Culture SOURCE : NOT SUPPLIED RESULT ?Not Isolated ? Reference Range: Not Isolated This test was developed and its analytical performance characteristics have been determined by [place]. It has not been cleared or approved by the U.S. Food and Drug Administration. This assay has been validated pursuant to the CLIA regulations and is used for clinical purposes. Test Performed by [facility] [employer] [facility], [address] [place] [address] [place] Bill M.D., Ph.D., Director of Laboratories , CLIA [id number] 11/15/2018 8:39 AM CDT Cuca Dutton [facility] - GENERAL ORDERAB LES Final Result Performing Organization Address City/[facility]/ZIP Co de Phone Number [employer] [address] , * CULTURE RAPID HERPES AND VARICELLA (11/15/2018 8:39 AM CDT) HSV /VZV RAPID CULT REPORT 11/21/2018 11:42 AM CDT [employer] MAHOGANY DOMINIK Comment: Herpes simplex/Varicella zoster virus Rapid Cult SOURCE : NOT SUPPLIED Test Not Performed due to reagent or kit unavailability. Test Performed by [facility] [employer] [facility], [address] [place] [address] [place] Bill M.D., Ph.D., Director of Laboratories , CLIA [id number] 11/15/2018 8:39 AM CDT Cuca Dutton [facility] - GENERAL ORDERAB LES Final Result Performing Organization Address City/[facility]/ZIP Co de Phone Number [facility] [address] [place], [place] , [place] [phone] * CULTURE ADENOVIRUS (11/15/2018 8:39 AM CDT) Pathologist [facility] ADENOVIRUS CULTURE REPORT 11/20/2018 4:51 PM CDT [employer] MAHOGANY DOMINIK Comment: Adenovirus Culture SOURCE : NOT SUPPLIED RESULT ?Not Isolated ? Reference Range: Not Isolated Adenovirus types 40 and 41 may not be isolated from culture. This test was developed and its analytical performance characteristics have been determined by [employer] [place], [place]. It has not been cleared or approved by the U.S. Food and Drug Administration. This assay has been validated pursuant to the CLIA regulations and is used for clinical purposes. Test Performed by [employer] [facility], [employer] [facility], [address] [place], [place] Bill M.D., Ph.D., Director of Laboratories , CLIA [id number] 11/15/2018 8:39 AM CDT us Cuca Dutton ALUM PLANT OPERATOR MICROBIOLOGY - GENERAL ORDERAB LES Final Result [employer] [facility] [address] [place] [address], [place] [phone] * CULTURE, WOUND, W/GRAM STAIN (11/15/2018 8:39 AM CDT) Pathologist [facility] SPEC DESCRIPTION LABIAL 11/15/2018 6:26 PM CDT [facility] SPECIAL REQUESTS NO SPECIAL REQUEST 11/15/2018 6:26 PM CDT [facility] GRAM STAIN RESULT NO WHITE BLOOD CELLS SEEN 11/16/2018 3:18 PM CDT [facility] GRAM STAIN RESULT RARE EPITHELIAL CELLS SEEN 11/16/2018 3:18 PM CDT [facility] GRAM STAIN RESULT MODERATE GRAM POSITIVE RODS RESEMBLING LACTOBACILLUS SPECIES 11/16/2018 3:18 PM CDT [facility] CULTURE RESULT SPARSE GROWTH OF NORMAL SAÚL PRESENT 11/19/2018 9:12 AM CDT [facility] CULTURE RESULT NOTE: WOUND AND TISSUE CULTURES ARE ROUTINELY SCREENED FOR AEROBIC ORGANISMS ONLY. 11/19/2018 9:12 AM CDT [facility] GENITAL LABIUM STRUCTURE / Unknown 11/15/2018 8:39 AM CDT 11/15/2018 7:46 PM CDT us Cuca Dutton ALUM PLANT OPERATOR MICROBIOLOGY - GENERAL ORDERAB LES Final Result [facility] [address] [place] [address], [place] [phone] * CULTURE VIRAL (11/15/2018 8:39 AM CDT) SPECIMEN SOURCE LABIA 9 1:33 PM CDT [facility] Preliminary Diagnosis: UNKNOWN 11/16/2018 1:33 PM CDT [facility] SUSPECTED VIRUSUS: UNKNOWN 11/16/2018 1:33 PM CDT [facility] RELAVANT VACCINATION: UNKNOWN 11/16/2018 1:33 PM CDT [facility] BRIEF HISTORY UNKNOWN UNKNOWN 11/16/2018 1:33 PM CDT [facility] COMPREHENSIVE VIRUS CULTURE REPORT 11/23/2018 5:44 PM CDT [employer] MARY GALLEGOS Comment: Viral Rapid Cultures ?Have been added Enterovirus Culture SOURCE : NOT SUPPLIED RESULT ?Not Isolated Reference range: ??Not Isolated The current Enterovirus culture system does not detect Enterovirus D68. If Enterovirus D68 is suspected, please call client services to add Enterovirus RNA, Qualitative, Real-Time PCR (test code 61908). Test Performed by [employer], [employer] [facility], [address] [place], [place] Bill M.D., Ph.D., Director of Laboratories , [place] [id number] GENITAL LABIUM STRUCTURE / Unknown 11/15/2018 8:39 AM CDT Cuca Nato [facility] - GENERAL ORDERAB LES Final Result [employer] [facility] [address] [place], [place] , [place] [phone] [facility] [address] [place] [address], [place] [phone] * CHLAMYDIA AND GC RNA TMA (11/15/2018 8:39 AM CDT) SPEC DESCRIPTION URINE VOIDED 11/15/2018 7:45 PM CDT [facility] CHLAMYDIA RNA TMA NEGATIVE NEGATIVE 11/17/2018 2:45 PM CDT [facility] Comment: A NEGATIVE RESULT DOES NOT PRECLUDE THE PRESENCE OF A CT INFECTION BECAUSE RESULTS ARE DEPENDENT ON ADEQUATE SPECIMEN COLLECTION, ABSENCE OF INHIBITORS, AND SUFFICIENT rRNA TO BE DETECTED. N.GONORRHOEAE RNA TMA NEGATIVE NEGATIVE 11/17/2018 2:45 PM CDT [facility] Comment: A NEGATIVE RESULT DOES NOT PRECLUDE THE PRESENCE OF A GC INFECTION BECAUSE RESULTS ARE DEPENDENT ON ADEQUATE SPECIMEN COLLECTION, ABSENCE OF INHIBITORS, AND SUFFICIENT rRNA TO BE DETECTED. URINE SPECIMEN / Unknown 11/15/2018 8:39 AM CDT Cuca Dutton [facility] - GENERAL ORDERAB LES Final Result [facility] [address] [place] [address], [place] [phone] [facility] [address] [place] [address], [place] [phone] * HEPATITIS C ANTIBODY (11/15/2018 8:39 AM CDT) HEPATITIS C AB NON-REACTI VE NON-REACTI VE 11/15/2018 9:43 PM CDT [facility] 11/15/2018 8:39 AM CDT [facility] Final Result [facility] [address] [place] [address], [place] [phone] * HEPATITIS B SURFACE AG, EIA (11/15/2018 8:39 AM CDT) HEPATITIS B SURFACE AG NON-REACTI VE NON-REACTI VE 11/15/2018 9:15 PM CDT [facility] 11/15/2018 8:39 AM CDT [facility] Final Result [facility] [address] [place] [address], [place] [phone] documented in this encounter Visit Diagnoses Diagnosis Primary syphilis Early syphilis, genital (primary) Chancre, syphilitic Early syphilis, genital (primary) Exposure to sexually transmitted disease (STD) Contact with or exposure to other communicable diseases documented in this encounter Care Teams Flatcar Whacker Relationship Specialty Start Date End Date Cuca Dutton FNP [address] [place] [address] PCP - General Nurse Practitioner Family 05/04/18 documented as of this encounter
--- OUTSIDE RECORDS SUMMARY | 2024-03-25 19:30 | XMS_ITS | Encounter Summary ---
Author Organization [facility] Address [address] [place] [address]. [place], [place] [address] [place] [address] Care Team Providers Care Experienced Truck Driver Name Role Phone Cuca Dutton Primary Care Provider [phone] Encounter Details Date Type Department Care Team [...] on filedocumented in this encounter Care Teams Experienced Truck Driver Relationship Specialty Start Date End Date Cuca Dutton FNP [address] [place] [address] PCP - General Nurse Practitioner Family 05/04/18 documented as of this encounter
--- OUTSIDE RECORDS SUMMARY | 2024-03-25 19:30 | XMS_ITS | Encounter Summary ---
Author Organization [facility] Address [address] [place] [address]. [place], [place] [address] [place] [address] Care Team Providers Care Collections Agent Name Role Phone Cuca Dutton Primary Care Provider [phone] Encounter Details Date Type Department Care Team [...] on filedocumented in this encounter Care Teams Collections Agent Relationship Specialty Start Date End Date Cuca Dutton FNP [address] [place] [address] PCP - General Nurse Practitioner Family 05/04/18 documented as of this encounter
--- OUTSIDE RECORDS SUMMARY | 2024-03-25 19:30 | XMS_ITS | Encounter Summary ---
Author Organization [facility] Address [address] [place] [address]. [place], [place] [address] [place] [address] Care Team Providers Care Felt Finishing Supervisor Name Role Phone Cuca Dutton Primary Care Provider [phone] Reason for Visit * Reason Onset Date Comments Other 03/16/2021 Encounter Details Date Type Department Care Team (Late st Contact Info) Description 03/16/2021 Telephone [facility] Family & Internal Medicine [place] [address] [place] [address] Cuca Dutton FNP [address] [place] [address] Other Social History Tobacco Use [...] Last seen 02/04/21 telemed Last dispensed 02/04/21 [facility] * Lynette Patel - 03/16/2021 8:35 AM CST Refill vyvanse, 50 mg -lisdexamfetamine Pharmacy [facility] documented in this encounter Plan of Treatment Not on file documented as of this encounter Visit Diagnoses Diagnosis Attention deficit hyperactivity disorder (ADHD), combined type documented in this encounter Additional Health Concerns Assessment Noted Time PHQ-9 Depression Total Score: 3 12/04/19 21 7:29 AM CDT documented as of this encounter Care Teams Felt Finishing Supervisor Relationship Specialty Start Date End Date Cuca Dutton FNP [address] [place] [address] PCP - General Nurse Practitioner Family 05/04/18 documented as of this encounter
--- OUTSIDE RECORDS SUMMARY | 2024-03-25 19:30 | XMS_ITS | Encounter Summary ---
Author Organization [facility] Address [address] [place] [address]. [place], [place] [address] [place] [address] Care Team Providers Care Manager Party Name Role Phone Cuca Dutton Primary Care Provider [phone] Reason for Visit * Reason Comments Anxiety f/u Depression f/u Attention Deficit Hyperactivity Disorder f/u Encounter Details Date Type Department Care Team (Latest Contact Info) Description 12/03/2020 7:40 AM CDT Telemedicine [facility] Family & Internal Medicine [place] [address] [place] [address] Cuca Dutton FNP [facility] [place], [place] [phone] Anxiety (f/u); Depression (f/u); Attention Deficit Hyperactivity [...] aware that the same confidentiality and information assistant practices apply. The patient joined the video [...] Gatherings with Friends and Family: ??? Attends Islam Services: ??? Active Member of Clubs or [...] documented as of this encounter Care Teams Manager Party Relationship Specialty Start Date End Date Cuca Dutton FNP [address] [place] [address] PCP - General Nurse Practitioner Family 05/04/18 documented as of this encounter
--- OUTSIDE RECORDS SUMMARY | 2024-03-25 19:30 | XMS_ITS | Encounter Summary ---
Author Organization [facility] Address [address] [place] [address]. [place], [place] [address] [place] [address] Care Team Providers Care Echo Technologist Name Role Phone Cuca Dutton Primary Care Provider [phone] Encounter Details Date Type Department Care Team [...] Depression Total Score: 13 021 10:36 AM TOURS CAPTAIN documented as of this encounter Care Teams Echo Technologist Relationship Specialty Start Date End Date Cuca Dutton FNP [address] [place] [address] PCP - General Nurse Practitioner Family 05/04/18 documented as of this encounter
--- OUTSIDE RECORDS SUMMARY | 2024-03-25 19:30 | XMS_ITS | Encounter Summary ---
Author Organization [facility] Address [address] [place] [address]. [place], [place] [address] [place] [address] Care Team Providers Care Duplicator Punch Set Up Operator Name Role Phone Cuca Dutton Primary Care Provider [phone] Reason for Visit * Reason Onset Date Comments Lab Results 11/19/2019 Encounter Details Date Type Department Care Team (Late st Contact Info) Description 11/19/2019 Telephone [facility] Family & Internal Medicine [facility] [address] [place] [address] Cuca Dutton FNP [address] [place], [place] [phone] Lab Results Social History Tobacco Use Types [...] unspecified documented in this encounter Care Teams Duplicator Punch Set Up Operator Relationship Specialty Start Date End Date Cuca Dutton FNP [address] [place] [address] PCP - General Nurse Practitioner Family 05/04/18 documented as of this encounter
--- OUTSIDE RECORDS SUMMARY | 2024-03-25 19:30 | XMS_ITS | Encounter Summary ---
Author Organization [facility] Address [address] [place] [address]. [place], [place] [address] [place] [address] Care Team Providers Care Vessel Engineer Name Role Phone Cuca Dutton Primary Care Provider [phone] Reason for Visit * Reason Comments Lab [...] on filedocumented in this encounter Care Teams Vessel Engineer Relationship Specialty Start Date End Date Cuca Dutton FNP [address] [place] [address] PCP - General Nurse Practitioner Family 05/04/18 documented as of this encounter
--- OUTSIDE RECORDS SUMMARY | 2024-03-25 19:30 | XMS_ITS | Encounter Summary ---
Author Organization [facility] Address [address] [place] [address]. [place], [place] [address] [place] [address] Care Team Providers Care Accounts Receivable Accountant Name Role Phone Cuca Dutton Primary [...] on filedocumented in this encounter Care Teams Accounts Receivable Accountant Relationship Specialty Start Date End Date Cuca Dutton FNP [address] [place] [address] PCP - General Nurse Practitioner Family 05/04/18 documented as of this encounter
--- OUTSIDE RECORDS SUMMARY | 2024-03-25 19:30 | XMS_ITS | Encounter Summary ---
Author Organization [facility] Address Critical access hospital[facility]. [place], [place] [address] [place] [address] Care Team Providers Care Caddie Name Role Phone Cuca Dutton Primary Care Provider [phone] Encounter Details Date Type Department Care Team (Late st Contact Info) Description 06/08/2019 Orders Only [facility] Family & Internal Medicine - [place] [address] [place] [address] Norma Araujo MA Social History Tobacco Use [...] on filedocumented in this encounter Care Teams Caddie Relationship Specialty Start Date End Date Cuca Dutton FNP [address] [place] [address] PCP - General Nurse Practitioner Family 05/04/18 documented as of this encounter
--- OUTSIDE RECORDS SUMMARY | 2024-03-25 19:30 | XMS_ITS | Encounter Summary ---
Author Organization [facility] Address [address] [place] [address]. [place], [place] [address] [place] [address] Care Team Providers Care Mid Level Practitioner Name Role Phone Cuca Dutton Primary Care Provider [phone] Encounter Details Date Type Department Care Team [...] on filedocumented in this encounter Care Teams Mid Level Practitioner Relationship Specialty Start Date End Date Cuca Dutton FNP [address] [place] [address] PCP - General Nurse Practitioner Family 05/04/18 documented as of this encounter
--- OUTSIDE RECORDS SUMMARY | 2024-03-25 19:30 | XMS_ITS | Encounter Summary ---
Author Organization [facility] Address [address] [place] [address]. [place], [place] [address] [place] [address] Care Team Providers Care Docking Pilot Name Role Phone Cuca Dutton Primary Care Provider [phone] Encounter Details Date Type Department Care Team [...] on filedocumented in this encounter Care Teams Docking Pilot Relationship Specialty Start Date End Date Cuca Dutton FNP [address] [place] [address] PCP - General Nurse Practitioner Family 05/04/18 documented as of this encounter
--- OUTSIDE RECORDS SUMMARY | 2024-03-25 19:30 | XMS_ITS | Encounter Summary ---
Author Organization [facility] Address [address] [place] [address]. [place], [place] [address] [place] [address] Care Team Providers Care Pocket Machine Operator Name Role Phone Cuca Dutton CAROLYN Primary Care Provider [phone] Reason for Visit * Reason Comments Allied Health Visit TB read Encounter Details Date Type Department Care Team (Latest Contact Info) Description 09/05/2020 9:00 AM CDT Allied Health/Nurse Visit [facility] Family & Internal Medicine [address] [phone] Allied Health Visit (TB read) Social History [...] Depression Total Score: 13 021 10:36 AM BEADING SAWYER documented as of this encounter Care Teams Pocket Machine Operator Relationship Specialty Start Date End Date Cuca Dutton FNP [address] [place] [address] PCP - General Nurse Practitioner Family 05/04/18 documented as of this encounter
--- OUTSIDE RECORDS SUMMARY | 2024-03-25 19:30 | XMS_ITS | Encounter Summary ---
Author Organization [facility] Address [address] [place] [address]. [place], [place] [address] [place] [address] Care Team Providers Care Tool Adjuster Name Role Phone Cuca Dutton Primary Care Provider [phone] Reason for Visit * Reason Onset Date Comments Results 11/20/2018 Encounter Details Date Type Department Care Team (Late st Contact Info) Description 11/20/2018 Telephone [facility] Family & Internal Medicine [facility] [address] [place] [address] Cuca Dutton FNP [address] [place], [place] [phone] Results Social History Tobacco Use Types Packs/Day [...] on filedocumented in this encounter Care Teams Tool Adjuster Relationship Specialty Start Date End Date Cuca Dutton FNP [address] [place] [address] PCP - General Nurse Practitioner Family 05/04/18 documented as of this encounter
--- OUTSIDE RECORDS SUMMARY | 2024-03-25 19:30 | XMS_ITS | Encounter Summary ---
Author Organization [facility] Address [address] [place] [address]. [place], [place] [address] [place] [address] Care Team Providers Care User Experience Architect Name Role Phone Cuca Dutton Primary Care Provider [phone] Reason for Visit * Reason Onset Date Comments Medication Request 11/17/2018 Encounter Details Date Type Department Care Team (Late st Contact Info) Description 11/17/2018 Telephone [facility] Medical Group Family & Internal Medicine [facility] [address] [place] [address] Cuca Dutton FNP [address] [place] [address] Medication Request Social History Tobacco [...] can send out for her to in [place]. Allergies: Bactrim documented in this encounter Plan of Treatment Not on file documented as of this encounter Visit Diagnoses Diagnosis [place], syphilitic- Primary Early syphilis, genital (primary) documented in this encounter Care Teams User Experience Architect Relationship Specialty Start Date End Date Cuca Dutton FNP [address] [place] [address] PCP - General Nurse Practitioner Family 05/04/18 documented as of this encounter
--- OUTSIDE RECORDS SUMMARY | 2024-03-25 19:30 | XMS_ITS | Encounter Summary ---
Author Organization [facility] Address [address] [place] [address]. [place], [place] [address] [place] [address] Care Team Providers Care Culinary Specialist Name Role Phone Cuca uDtton Primary Care Provider [phone] Encounter Details Date Type Department Care Team [...] on filedocumented in this encounter Care Teams Culinary Specialist Relationship Specialty Start Date End Date Cuca Dutton FNP [address] [place] [address] PCP - General Nurse Practitioner Family 05/04/18 documented as of this encounter
--- OUTSIDE RECORDS SUMMARY | 2024-03-25 19:30 | XMS_ITS | Encounter Summary ---
Author Organization [facility] Address [address] [place] [address]. [place], [place] [address] [place] [address] Care Team Providers Care Student Support Services Director Name Role Phone Cuca Dutton Primary Care Provider [phone] Reason for Visit * Reason Onset Date Comments Vaginal Problem 01/02/2020 Encounter Details Date Type Department Care Team (Late st Contact Info) Description 01/02/[address] [facility] Medical Group Family & Internal Medicine [facility] [address] [place] [address] Cuca Dutton FNP [address] [place], [place] [phone] Vaginal Problem Social History Tobacco Use Types [...] mycoses documented in this encounter Care Teams Student Support Services Director Relationship Specialty Start Date End Date Cuca Dutton FNP [address] [place] [address] PCP - General Nurse Practitioner Family 05/04/18 documented as of this encounter
--- OUTSIDE RECORDS SUMMARY | 2024-03-25 19:30 | XMS_ITS | Encounter Summary ---
Author Organization [facility] Address [address] [place] [address]. [place], [place] [address] [place] [address] Care Team Providers Care Retail Loan Originator Name Role Phone Cuca Dutton Primary Care Provider [phone] Reason for Visit * Reason Onset Date Comments Advise 04/16/2019 Encounter Details Date Type Department Care Team (Late st Contact Info) Description 04/16/2019 Telephone [facility] Medical Group Family & Internal Medicine [facility] [address] [place] [address] Cuca Dutton FNP [address] [place], [place] [phone] Advise Social History Tobacco Use Types Packs/Day [...] 2:18 PM CST Patient notified and v/u H MAKING MACHINE OPERATOR * Zita Samuels MA - 04/17/2019 1:48 PM CST 04-17-19 unable to lmtc mailbox full H MAKING MACHINE OPERATOR H MAKING MACHINE OPERATOR * CAROLYN Martin - 04/17/2019 1:37 PM CST Okay she should let us know what the debit agent advised her to do and we can go from there. H MAKING MACHINE OPERATOR * Montserrat Herron - 04/17/2019 12:09 PM [...] a feeling this one might need replaced. H MAKING MACHINE OPERATOR * Corry Degroot RN - 04/17/2019 10:04 AM CST Mail box full 04/17/19 H MAKING MACHINE OPERATOR * Emily Eason MA - 04/16/2019 5:16 PM CST Mail box full 04/16/19 H MAKING MACHINE OPERATOR * CAROLYN Martin - 04/16/2019 4:56 PM CST Did she call the office that placed the contraceptive? I am okay with this but usually she should call the ones who placed it. H MAKING MACHINE OPERATOR * Kristan Hull MA - 04/16/2019 9:40 AM CST Pt has nexplanon (it's been in for 6 months). Pt has been heavy bleeding for the past week and thisis the 1st time she has bled since having it in. Pt states that this happened to her friend and shewas prescribed an additional control to help with this. Please advise. Preferred pharm [facility] H MAKING MACHINE OPERATOR documented in this encounter Plan of Treatment Not on file documented as of this encounter Visit Diagnoses Not on filedocumented in this encounter Care Teams Retail Loan Originator Relationship Specialty Start Date End Date Cuca Dutton FNP [address] [place] [address] PCP - General Nurse Practitioner Family 05/04/18 documented as of this encounter
--- OUTSIDE RECORDS SUMMARY | 2024-03-25 19:30 | XMS_ITS | Encounter Summary ---
Author Organization [facility] Address [address] [place] [address]. [place], [place] [address] [place] [address] Care Team Providers Care Consultant Name Role Phone Cuca Dutton Primary Care Provider [phone] Reason for Visit * Reason Onset Date Comments Results 11/16/2019 Encounter Details Date Type Department Care Team (Late st Contact Info) Description 11/16/[address] [facility] Medical Group Family & Internal Medicine [facility] [place] [facility] [address] [place] [address] Cuca Dutton FNP [address] [place], [place] [phone] Results Social History Tobacco Use Types Packs/Day [...] on filedocumented in this encounter Care Teams Consultant Relationship Specialty Start Date End Date Cuca Dutton FNP [address] [place] [address] PCP - General Nurse Practitioner Family 05/04/18 documented as of this encounter
--- OUTSIDE RECORDS SUMMARY | 2024-03-25 19:30 | XMS_ITS | Encounter Summary ---
Author Organization [facility] Address [address] [place] [address]. [place], [place] [address] [place] [address] Care Team Providers Care Power House Control Room Operator Name Role Phone Cuca Dutton Primary Care Provider [phone] Encounter Details Date Type Department Care Team (Latest Contact Info) Description 09/04/2018 5:44 PM CDT - 09/04/2018 11:59 PM CDT Hospital Encounter [facility] [place] [address] Cuca Dutton FNP [address] [place], [place] [phone] Discharge Disposition: Home or Self Care (Routine [...] URINE CLEAN CATCH 09/04/2018 5:44 PM CDT [facility] SPECIAL REQUESTS NO SPECIAL REQUEST 09/04/2018 5:44 PM CDT [facility] CULTURE RESULT >100,000 COL/ML ESCHERICHIA COLI 09/05/2018 10:49 PM CDT [facility] URINE SPECIMEN OBTAINED BY CLEAN CATCH [...] MICROBIOLOGY - GENERAL ORDERAB LES Final Result [facility] [address] [place] [address], documented in this encounter Visit Diagnoses Diagnosis Dysuria Acute cystitis without hematuria Acute cystitis documented in this encounter Care Teams Power House Control Room Operator Relationship Specialty Start Date End Date Cuca Dutton FNP [address] [place] [address] [phone] PCP - General Nurse Practitioner Family 05/04/18 documented as of this encounter
--- OUTSIDE RECORDS SUMMARY | 2024-03-25 19:30 | XMS_ITS | Encounter Summary ---
Author Organization [facility] Address [address] [place] [address]. [place], [place] [address] [place] [address] Care Team Providers Care Campus Recruiting Intern Name Role Phone Cuca Dutton Primary Care Provider [phone] Reason for Visit * Reason Comments ER F/U sepsis Encounter Details Date Type Department Care Team (Late st Contact Info) Description 09/18/2018 1:20 PM CDT Office Visit [facility] Medical Group Family & Internal Medicine - [place] [address] [place] [address] Cuca Dutton FNP [address] [place], [place] [phone] ER F/U (sepsis) Social History Tobacco Use [...] 09/18/2018 1:3 6 PM CDT Growth Chart: [facility] (Girls, 2- 20 Years) documented [...] Note Reason for Visit: ER F/U (sepsis) [facility] call:09/08/2018 Admitted 09/06/2018 Discharged:09/07/2018 Admitting diagnosis pyelonephritis [...] file Gets together: Not on file Attends gnosticist service: Not on file Active member of [...] URINALYSIS AUTO DIP (09/18/2018) COLOR (U) YELLOW [facility] CLEAR [facility] GLUCOSE (U) NEGATIVE NEGATIVE MG/DL [facility] BILIRUBIN (U) NEGATIVE NEGATIVE [facility] KETONES MG/DL (U) NEGATIVE NEGATIVE MG/DL [facility] SPECIFIC GRAVITY (U) 1.015 1.001 - 1.035 [facility] BLOOD (U) NEGATIVE NEGATIVE [facility] U PH 7.5 5.0 - 9.0 [facility] PROTEIN (U) NEGATIVE NEGATIVE mg/dL [facility] UROBILINOGEN 0.2 0.2 - 1.0 EU/dL = mg/dL [facility] NITRITES NEGATIVE NEGATIVE MG/DL -[facility] LEUKOCYTES (U) NEGATIVE NEGATIVE MG-SO [facility] URINE SPECIMEN OBTAINED BY CLEAN CATCH PROCEDURE / Unknown 09/18/2018 us Cuca LEON URINE ORDERABLES Final Result -[facility] [address] [place] [address], documented in this encounter Visit Diagnoses Diagnosis Acute pyelonephritis- Primary Acute pyelonephritis without lesion of renal medullary necrosis Anxiety Anxiety state, unspecified Pyelonephritis Pyelonephritis, unspecified Hospital discharge follow-up Other follow-up examination documented in this encounter Care Teams Campus Recruiting Intern Relationship Specialty Start Date End Date Cuca Dutton FNP [address] [place] [address] PCP - General Nurse Practitioner Family 05/04/18 documented as of this encounter
--- OUTSIDE RECORDS SUMMARY | 2024-03-25 19:30 | XMS_ITS | Encounter Summary ---
Author Organization [facility] Address [address] [place] [address]. [place], [place] [address] [place] [address] Care Team Providers Care Vocal Artist Name Role Phone Cuca Dutton Primary Care Provider [phone] Encounter Details Date Type Department Care Team [...] Depression Total Score: 13 021 10:36 AM PHARMACY MESSENGER documented as of this encounter Care Teams Vocal Artist Relationship Specialty Start Date End Date Cuca Dutton FNP [address] [place] [address] PCP - General Nurse Practitioner Family 05/04/18 documented as of this encounter
--- OUTSIDE RECORDS SUMMARY | 2024-03-25 19:30 | XMS_ITS | Encounter Summary ---
Author Organization [facility] Address [address] [place] [address]. [place], [place] [address] [place] [address] Care Team Providers Care Orthopaedic Surgeon Name Role Phone Cuca Dutton Primary Care Provider [phone] Encounter Details Date Type Department Care Team [...] on filedocumented in this encounter Care Teams Orthopaedic Surgeon Relationship Specialty Start Date End Date Cuca Dutton FNP [address] [place] [address] PCP - General Nurse Practitioner Family 05/04/18 documented as of this encounter
--- OUTSIDE RECORDS SUMMARY | 2024-03-25 19:30 | XMS_ITS | Encounter Summary ---
Author Organization [facility] Address [address] [place] [address]. [place], [place] [address] [place] [address] Care Team Providers Care Boiler House Inspector Name Role Phone Ccua Dutton Primary Care Provider [phone] Reason for Visit * Reason Comments Anxiety c/o trouble concenta ting Encounter Details Date Type Department Care Team (Late st Contact Info) Description 10/01/2020 9:40 AM CDT Telemedicine [facility] Medical Group Family & Internal Medicine [place] [address] [place] [address] Cuca Dutton FNP [facility] [place], [place] [phone] Anxiety (c/o trouble concentating) Social History Tobacco [...] that the same confidentiality and information technology director practices apply. The patient joined the video visit from Home. I completed the virtual visit from Home. 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 She is having trouble focusing in [...] Gatherings with Friends and Family: ??? Attends Oriental Orthodox Services: ??? Active Member of Clubs or [...] Moderate episode of recurrent major depressive disorder ([facility]) Recommendations and Plan: 1. Attention deficit hyperactivity [...] Depression Total Score: 13 021 10:36 AM PRESSURISED CONTAINER FILLER documented as of this encounter Care Teams Boiler House Inspector Relationship Specialty Start Date End Date Cuca Dutton FNP [address] [place] [address] PCP - General Nurse Practitioner Family 05/04/18 documented as of this encounter
--- OUTSIDE RECORDS SUMMARY | 2024-03-25 19:30 | XMS_ITS | Encounter Summary ---
Author Organization [facility] Address [address] [place] [address]. [place], [place] [address] [place] [address] Care Team Providers Care Sole Stapler Welt Name Role Phone Cuca Dutton Primary Care Provider [phone] Reason for Visit * Reason Onset Date Comments TCM 09/08/2018 Encounter Details Date Type Department Care Team (Late st Contact Info) Description 09/08/2018 Telephone [facility] Medical Group Family & Internal Medicine [facility] [address] [place] [address] Cuca Dutton FNP [address] [place], [place] [phone] TCM Social History Tobacco Use Types Packs/Day [...] on filedocumented in this encounter Care Teams Sole Stapler Welt Relationship Specialty Start Date End Date Cuca Dutton FNP [address] [place] [address] PCP - General Nurse Practitioner Family 05/04/18 documented as of this encounter
--- OUTSIDE RECORDS SUMMARY | 2024-03-25 19:30 | XMS_ITS | Encounter Summary ---
Author Organization [facility] Address [address] [place] [address]. [place], [place] [address] [place] [address] Care Team Providers Care Product Development Name Role Phone Cuca Dutton Primary Care Provider [phone] Reason for Visit * Reason Onset Date Comments Medication Request 04/16/2020 Encounter Details Date Type Department Care Team (Late st Contact Info) Description 04/16/2020 Telephone [facility] Medical Group Family & Internal Medicine [facility] [address] [place] [address] Cuca Dutton FNP [address] [place] [address] Medication Request Social History Tobacco [...] informed and v/u. rx sent to pharmacy. ING EQUIPMENT REPAIRER * CAROLYN Martin - 04/16/2020 11:25 AM CST Okay to fill nightly for 7 nights ING EQUIPMENT REPAIRER * Lydia Gonzalez RRT - 04/16/2020 10:53 AM CST Pt is requesting metroNIDAZOLE (METROGEL VAGINAL) 0.75 % vaginal gel For bacterial vaginosis. She has taken for this in the past. [facility] ING EQUIPMENT REPAIRER documented in this encounter Plan of Treatment Not on file documented as of this encounter Visit Diagnoses Diagnosis Vaginal odor- Primary Unspecified symptom associated with female genital organs documented in this encounter Care Teams Product Development Relationship Specialty Start Date End Date Cuca Dutton FNP [address] [place] [address] PCP - General Nurse Practitioner Family 05/04/18 documented as of this encounter
--- OUTSIDE RECORDS SUMMARY | 2024-03-25 19:30 | XMS_ITS | Encounter Summary ---
Author Organization [facility] Address [address] [place] [address]. [place], [place] [address] [place] [address] Care Team Providers Care Licensed Funeral Director And Embalmer Name Role Phone Cuca Dutton Primary Care Provider [phone] Encounter Details Date Type Department Care Team [...] COVID-19? No / Unsure 05/19/2020 9:50 AM HOUSING MANAGEMENT OFFICER documented as of this encounter Plan of Treatment Not on file documented as of this encounter Visit Diagnoses Not on filedocumented in this encounter Additional Health Concerns Assessment Noted Time PHQ-9 Depression Total Score: 13 021 10:36 AM HOUSING MANAGEMENT OFFICER documented as of this encounter Care Teams Licensed Funeral Director And Embalmer Relationship Specialty Start Date End Date Cuca Dutton FNP [address] [place] [address] PCP - General Nurse Practitioner Family 05/04/18 documented as of this encounter
--- OUTSIDE RECORDS SUMMARY | 2024-03-25 19:30 | XMS_ITS | Encounter Summary ---
Author Organization [facility] Address [address] [place] [address]. [place], [place] [address] [place] [address] Care Team Providers Care Sharepoint Solutions Developer Name Role Phone Cuca Dutton Primary Care Provider [phone] Reason for Visit * Reason Comments Attention Deficit Hyperactivity Disorder f/u on Vyvanse Encounter Details Date Type Department Care Team (Latest Contact Info) Description 10/15/2020 10:20 AM CDT Telemedicine [facility] Medical Group Family & Internal Medicine [place] [address] [place] [address] Cuca Dutton FNP [facility] [address] [place], [place] [phone] Attention Deficit Hyperactivity Disorder (f/u on Vyvanse) [...] aware that the same confidentiality and information clerk practices apply. The patient joined the video visit from Home. I completed the virtual visit [facility] Home. [facility] MA: [...] Gatherings with Friends and Family: ??? Attends Buddhist Services: ??? Active Member of Clubs or [...] episode of recurrent major depressive disorder (CMS/H[facility]) Vaginal yeast infection Candidiasis of vulva and vagina documented in this encounter Additional Health Concerns Assessment Noted Time PHQ-9 Depression Total Score: 13 021 10:36 AM DIGITIZER OPERATOR documented as of this encounter Care Teams Sharepoint Solutions Developer Relationship Specialty Start Date End Date Cuca Dutton FNP [address] [place] [address] PCP - General Nurse Practitioner Family 05/04/18 documented as of this encounter
--- OUTSIDE RECORDS SUMMARY | 2024-03-25 19:30 | XMS_ITS | Encounter Summary ---
Author Organization [facility] Address [address] [place] [address]. [place], [place] [address] [place] [address] Care Team Providers Care Commercial Horticulture Instructor Name Role Phone Antonio Nicholson Primary Care Provider [phone] Reason for Visit * Reason Onset Date Comments Refill Request 11/10/2020 Encounter Details Date Type Department Care Team (Late st Contact Info) Description 11/10/2020 Telephone [facility] Medical Group Family & Internal Medicine [facility] [address] [place] [address] Antonio Nicholson FNP [address] [place] [address] Refill Request Social History Tobacco [...] refill on Tuesday. [place] was in [place] and her family was kicked out of the hotel they were staying in and her medicine was lost. Sheis requesting an early fill. I advised patient that this may not be possible due to office policy but that I would send a message. Last visit with ANTONIO NICHOLSON in FAMILY PRACTICE was on: 08/28/2020 in [facility] No future appointments. [id number] - [facility] [address] [facility] [id number] Current Outpatient Medications: ??? fluconazole 150 MG [...] Depression Total Score: 13 021 10:36 AM CARDIAC CATH TECHNICIAN documented as of this encounter Care Teams Commercial Horticulture Instructor Relationship Specialty Start Date End Date Antonio Nihcolson FNP [address] [place] [address] PCP - General Nurse Practitioner Family 05/04/18 documented as of this encounter
--- OUTSIDE RECORDS SUMMARY | 2024-03-25 19:30 | XMS_ITS | Encounter Summary ---
Author Organization [facility] Address [address] [place] [address]. [place], [place] [address] [place] [address] Care Team Providers Care Tool And Die Repairer Name Role Phone Cuca Dutton Primary [...] Depression Total Score: 13 021 10:36 AM MECHANICAL PRODUCT DESIGN ENGINEER documented as of this encounter Care Teams Tool And Die Repairer Relationship Specialty Start Date End Date Cuca Dutton FNP [address] [place] [address] PCP - General Nurse Practitioner Family 05/04/18 documented as of this encounter
--- OUTSIDE RECORDS SUMMARY | 2024-03-25 19:30 | XMS_ITS | Encounter Summary ---
Author Organization [facility] Address [address] [place] [address]. [place], [place] [address] [place] [address] Care Team Providers Care Supervisor Education Name Role Phone Cuca Dutton Primary Care Provider [phone] Reason for Visit * Reason Comments Skin Problem sores in vaginal are a Encounter Details Date Type Department Care Team (Late st Contact Info) Description 11/15/2018 8:40 AM CDT Office Visit [facility] Medical Group Family & Internal Medicine [facility] [address] [place] [address] Cuca Dutton FNP [address] [place], [place] [id number] Skin Problem (sores in vaginal area) Social [...] 11/15/2018 8:4 9 AM CDT Growth Chart: [facility] (Girls, 2- 20 Years) documented [...] the next stages. ?? Secondary stages ? [place] or red rashes on your body that [...] http://familydoctor.org/familydoctor/en/diseases-conditions/syphilis.printerview .all.html National Organization for Rare Diseases http://www.rarediseases.org/oolw-uqlgdok-ovodrmrends/rare-diseases/byID/842/view Abstract National Organization for Rare Diseases http://www.rarediseases.org/jaya-hojlngi-zmvoncmomue/rare-diseases/byID/841/view Abstract NHS Choices http://www.nhs.uk/Conditions/Syphilis/Pages/Introduction.aspx Last Reviewed Date [...] right for you. Copyright Copyright ?? 2019 [employer] Clinical Drug Information, Inc. and its affiliates [...] throwing up Where can I learn more? [employer] http://www.americanpregnancy.org/pregnancycomplications/stdstiduringpregnancy.ht ml Centers for Disease Control [...] right for you. Copyright Copyright ?? 2019 [employer] Clinical Drug Information, Inc. and its affiliates [...] file Gets together: Not on file Attends jehovah's witness service: Not on file Active member of [...] Negative Negative 11/20/19 19 4:03 PM CDT [employer] NICHOLE STOCK HSV 2 IGM SCREEN Negative Negative 11/20/19 19 4:03 PM CDT [employer] [facility] [place] Comment: The IFA procedure for measuring IgM antibodies to HSV 1 and HSV 2 detects both type-common and type-specific HSV antibodies. Thus, IgM reactivity to both HSV 1 and HSV 2 may represent crossreactive HSV antibodies rather than exposure to both HSV 1 and HSV 2. This test was developed and its analytical performance characteristics have been determined by [place] It has not been cleared or approved by the FDA. This assay has been validated pursuant to the CLIA regulations and is used for clinical purposes. HSV 1 IGM TITER REPORT 9 4:03 PM CDT [employer] [facility] [place] Comment:Not indicated HSV 2 IGM TITER REPORT 9 4:03 PM CDT [employer] [place] Comment: Not indicated Test Performed by [employer] Dennis, [employer] [facility], [address] [place], [place] Morales Bill M.D., Ph.D., Director of Laboratories , CLIA [id number] 11/15/2018 9:39 AM CDT Cuca Dutton [facility]IST[facility] LABORATORY Final Result Performing Organization Address [facility]/ZIP Co de Phone Number [employer] [place] [phone] [place], [place] , * HIV AG/AB, 4TH GEN W/RFX ([facility] ONLY) (11/15/2018 9:39 AM CDT) HIV 1/2 AB+ HIV1 P24 AG REPORT 11/18/2018 2:16 PM CDT [employer] [place] Comment: HIV Ag/Ab, 4th Generation [...] old. For additional information, please refer to http://education.Zane Prep.Knowlent/faq/ZNN157 Test Performed by [employer]Dennis, [employer] [place], [address] [place], [place] Morales Bill M.D., Ph.D., Director of Laboratories , CLIA [id number] 11/15/2018 9:39 AM CDT Cuca Nato [facility]ORAT[facility] Final Result Performing Organization Address [facility]/ZIP Co de Phone Number [facility] [address] [place], [place] , [place] [phone] * SYPHILIS/RPR/VDRL; QUAL (11/15/2018 9:39 AM CDT) RPR Nonreactive Nonreactive 11/18/2018 5:29 PM CDT [facility] LORRIE KUNAL RPR TITER REPORT 11/18/2018 5:29 PM CDT [employer] TEODOROYa KUNAL Comment: Not indicated. Test Performed by [employer]ennis, [employer] [place], [address] [place], [place] Morales Bill M.D., Ph.D., Director of Laboratories , [place] [id number] 11/15/2018 9:39 AM CDT Cuca Dutton [facility] Final Result [employer] [facility] [address] [place], [place] , [place] [phone] * CULTURE, WOUND, W/GRAM STAIN (11/15/2018 8:39 AM CDT) SPEC DESCRIPTION LABIAL 11/15/2018 6:26 PM CDT [facility] SPECIAL REQUESTS NO SPECIAL REQUEST 11/15/2018 6:26 PM CDT [facility] GRAM STAIN RESULT NO WHITE BLOOD CELLS SEEN 11/16/2018 3:18 PM CDT [facility] GRAM STAIN RESULT RARE EPITHELIAL CELLS SEEN 11/16/2018 3:18 PM CDT [facility] GRAM STAIN RESULT MODERATE GRAM POSITIVE RODS RESEMBLING LACTOBACILLUS SPECIES 11/16/2018 3:18 PM CDT [facility] CULTURE RESULT SPARSE GROWTH OF NORMAL SAÚL PRESENT 11/19/2018 9:12 AM CDT [facility] CULTURE RESULT NOTE: WOUND AND TISSUE CULTURES ARE ROUTINELY SCREENED FOR AEROBIC ORGANISMS ONLY. 11/19/2018 9:12 AM CDT [facility] GENITAL LABIUM STRUCTURE / Unknown 11/15/2018 8:39 AM CDT 11/15/2018 7:46 PM CDT Cuca Dutton PUBLISHER ASSISTANT MICROBIOLOGY - GENERAL ORDERAB LES Final Result [facility] [address] [place] [address], [place] [phone] * CULTURE VIRAL (11/15/2018 8:39 AM CDT) SPECIMEN SOURCE LABIA 9 1:33 PM CDT [facility] Preliminary Diagnosis: UNKNOWN 11/16/2018 1:33 PM CDT [facility] SUSPECTED VIRUSUS: UNKNOWN 11/16/2018 1:33 PM CDT [facility] RELAVANT VACCINATION: UNKNOWN 11/16/2018 1:33 PM CDT [facility] BRIEF HISTORY UNKNOWN UNKNOWN 11/16/2018 1:33 PM CDT [facility] COMPREHENSIVE VIRUS CULTURE REPORT 11/23/2018 5:44 PM CDT [employer] [place] Comment: Viral Rapid Cultures ?Have been added Enterovirus Culture SOURCE : NOT SUPPLIED RESULT ?Not Isolated Reference range: ??Not Isolated The current Enterovirus culture system does not detect Enterovirus D68. If Enterovirus D68 is suspected, please call client services to add Enterovirus RNA, Qualitative, Real-Time PCR (test code 06301). Test Performed by Dennis Tatum, [employer] [facility], [address] [place] [address] [place] Bill M.D., Ph.D., Director of Laboratories , LENCHO [id number] GENITAL LABIUM STRUCTURE / Unknown 11/15/2018 8:39 AM CDT Cuca Dutton [facility] MICROBIOLOGY - GENERAL ORDERAB LES Final Result [employer] [facility] [address] [place] [address], [place] [phone] [facility] [address] [place] [address], [place] [phone] * CHLAMYDIA AND GC RNA TMA (11/15/2018 8:39 AM CDT) SPEC DESCRIPTION URINE VOIDED 11/15/2018 7:45 PM CDT [facility] CHLAMYDIA RNA TMA NEGATIVE NEGATIVE 11/17/2018 2:45 PM CDT [facility] Comment: A NEGATIVE RESULT DOES NOT PRECLUDE THE PRESENCE OF A CT INFECTION BECAUSE RESULTS ARE DEPENDENT ON ADEQUATE SPECIMEN COLLECTION, ABSENCE OF INHIBITORS, AND SUFFICIENT rRNA TO BE DETECTED. N.GONORRHOEAE RNA TMA NEGATIVE NEGATIVE 11/17/2018 2:45 PM CDT [facility] Comment: A NEGATIVE RESULT DOES NOT PRECLUDE THE PRESENCE OF A GC INFECTION BECAUSE RESULTS ARE DEPENDENT ON ADEQUATE SPECIMEN COLLECTION, ABSENCE OF INHIBITORS, AND SUFFICIENT rRNA TO BE DETECTED. URINE SPECIMEN / Unknown 11/15/2018 8:39 AM CDT Cuca Dutton [facility] MICROBIOLOGY - GENERAL ORDERAB LES Final Result [facility] [address] [place] [address], [place] [phone] [facility] [address] [place] [address], [place] [phone] * HEPATITIS C ANTIBODY (11/15/2018 8:39 AM CDT) HEPATITIS C AB NON-REACTI VE NON-REACTI VE 11/15/2018 9:43 PM CDT [facility] 11/15/2018 8:39 AM CDT us Cuca LEON LABORATORY Final Result [facility] [address] [place] [address], [place] [phone] * HEPATITIS B SURFACE AG, EIA (11/15/2018 8:39 AM CDT) HEPATITIS B SURFACE AG NON-REACTI VE NON-REACTI VE 11/15/2018 9:15 PM CDT [facility] 11/15/2018 8:39 AM CDT Cuca LEON LABORATORY Final Result Performing Organization Address City/[facility]/ZIP Co de Phone Number [facility] [address] [place] [address], [place] [phone] documented in this encounter Visit Diagnoses Diagnosis [...] Quadrant documented in this encounter Care Teams Supervisor Education Relationship Specialty Start Date End Date Cuca Dutton FNP [address] [place] [address] PCP - General Nurse Practitioner Family 05/04/18 documented as of this encounter
--- OUTSIDE RECORDS SUMMARY | 2024-03-25 19:30 | XMS_ITS | Encounter Summary ---
Author Organization [facility] Address [address] [place] [address]. [place], [place] [address] [place] [address] Care Team Providers Care Melter Operator Name Role Phone Antonio Nicholson Primary Care Provider [phone] Reason for Visit * Reason Onset Date Comments Medication 02/04/2020 Encounter Details Date Type Department Care Team (Late st Contact Info) Description 02/04/2020 Telephone [facility] Medical Group Family & Internal Medicine [facility] [address] [place] [address] Antonio Nicholson FNP [address] [place], [place] [phone] Medication Social History Tobacco Use Types Packs/Day [...] AM CST Spoke to patient; verbalized understanding. T ROCK TAPER * Norma Araujo MA - 02/04/2020 3:55 PM CST Lm and sent rx 02/04/20 tn T ROCK TAPER * CAROLYN Martin - 02/04/2020 11:49 AM CST Buspar 5 mg tid for anxiety, she should start with taking this once daily for 3 days and then gradually increase to 3 times a day, we can always increase this dose if needed. Dsp 90 T ROCK TAPER * Aga Bui - 02/04/2020 10:33 AM CST Pt calling, pt stated that she was on prozac for about a month or two and d/c it months ago as it made her feel emotionless. She is having anxiety more so than depression and would like something ordered. Has tried zoloft without success as well. Allergies: Allergies Allergen Reactions ??? Sulfamethoxazole-Trimethoprim Unknown [id number] [address] [facility] [address] Last visit with ANTONIO NICHOLSON in [facility]ILY [facility]ICE was on: 11/08/2019 in [facility] No future appointments. Current Outpatient Medications: ??? fluconazole 150 MG tablet, Take one tablet now and may repeat in 72 hours, Disp: 2 tablet, Rfl:0 ??? levonorgestrel (MIRENA, 52 MG,) 20 MCG/24HR IUD, 1 Intra Uterine Device by Intrauterine route once., Disp: , Rfl: T ROCK TAPER documented in this encounter Plan of Treatment Not on file documented as of this encounter Visit Diagnoses Diagnosis Anxiety- Primary Anxiety state, unspecified documented in this encounter Care Teams Melter Operator Relationship Specialty Start Date End Date Antonio Nicholson FNP [address] [place] [address] PCP - General Nurse Practitioner Family 05/04/18 documented as of this encounter
--- OUTSIDE RECORDS SUMMARY | 2024-03-25 19:30 | XMS_ITS | Encounter Summary ---
Author Organization [facility] Address [address] [place] [address]. [place], [place] [address] [place] [address] Care Team Providers Care Configuration Manager Name Role Phone Cuca Dutton Primary Care Provider [phone] Reason for Visit * Reason Onset Date Comments Vaginal Problem 03/02/2019 Encounter Details Date Type Department Care Team (Late st Contact Info) Description 03/02/2019 Telephone [facility] Medical Group Family & Internal Medicine [facility] [address] [place] [address] Cuca Dutton FNP [address] [place], [place] [phone] Vaginal Problem Social History Tobacco Use Types [...] answer and voicemail is full. rx sent LE AND SLEEVE WORKER * CAROLYN Martin - 03/02/2019 2:51 PM CST 150 mg fluconazole take one tab now and repeat in 72 hours dsp 2 tabs Make sure she starts a probiotic supplement daily LE AND SLEEVE WORKER * Emily Eason MA - 03/02/2019 2:02 PM CST Patient is asking for diflucan for a yeast infection. States that this is a recurrent issue. [facility] LE AND SLEEVE WORKER documented in this encounter Plan of Treatment Not on file documented as of this encounter Visit Diagnoses Diagnosis Yeast infection- Primary Other and unspecified mycoses documented in this encounter Care Teams Configuration Manager Relationship Specialty Start Date End Date Cuca Dutton FNP [address] [place] [address] PCP - General Nurse Practitioner Family 05/04/18 documented as of this encounter
--- OUTSIDE RECORDS SUMMARY | 2024-03-25 19:30 | XMS_ITS | Encounter Summary ---
Author Organization [facility] Address [address] [place] [address]. [place], [place] [address] [place] [address] Care Team Providers Care Drawer In Dobby Loom Name Role Phone Cuca Dutton Primary Care Provider [phone] Reason for Visit * Reason Comments Follow Up sti testing Encounter Details Date Type Department Care Team (Late st Contact Info) Description 11/08/2019 9:20 AM CDT Office Visit [facility] Medical Group Family & Internal Medicine [place] [phone] [place] [address] Cuca Dutton FNP [address] [place], [place] [phone] Follow Up (sti testing ) Social History [...] certain STDs. Where can I learn more? [employer] Academy of [employer]icians http://familydoctor.org/familydoctor/en/diseases-conditions/sexually-transmitted -infections/prevention.printerview.all.html Canadian College of Obstetrics and Gynecology https://www.acog.org/Patients/FAQs/Vlf-ht-Pyflvmf-Hzynvpux-Meyldkatclr-Oxtqyxdrm s-STIs?IsMobileSet=false Centers for Disease Control http://www.cdc.gov/std/prevention/default.htm Last [...] right for you. Copyright Copyright ?? 2020 [employer] and its affiliates and/or licensors. All rights [...] file Gets together: Not on file Attends jewish service: Not on file Active member of [...] RNA TMA (11/08/2019 10:20 AM CDT) Pathologist [facility] CHLAMYDIA TRACHOMATIS RNA TMA NOT DETECTED NOT DETECTED [employer] [facility] N.GONORRHOEAE RNA TMA (QST) NOT DETECTED NOT DETECTED [facility] COMMENT: [employer] Comment: The analytical performance characteristics of this assay, when used to test SurePath(TM) specimens have been determined by [employer]. The modifications have not been cleared or approved by the FDA. This assay has been validated pursuant to the CLIA regulations and is used for clinical purposes. For additional information, please refer to https://education.Eduquia/faq/VNB368 (This link is being provided for information/ educational purposes only.) URINE SPECIMEN / Unknown 11/08/2019 10:20 AM CDT 11/09/2019 7:20 AM CDT Narrative Resulting Agency Comment Performing Organization Information: ?Site ID: [id number] ?Name: [facility] ?Address: [address] [place] [address] ?Director: Billy Ang D.O., MPH Cuca LEON MICROBIOLOGY - GENERAL ORDERAB LES Final Result [facility] [address] [place] [address], * HSV 1&2 IGM WI RFX TO TITER (11/08/2019 10:20 AM CDT) [facility] HSV 1 IGM SCREEN NEGATIVE [facility] HSV 2 IGM SCREEN NEGATIVE [facility] Comment: REFERENCE RANGE: NEGATIVE [...] analytical performance characteristics have been determined by [facility]. It has not been cleared or approved by FDA. This assay has been validated pursuant to the CLIA regulations and is used for clinical purposes. 11/08/2019 10:2 0 AM CDT 11/09/2019 7:20 AM CDT Narrative Resulting Agency Comment Performing Organization Information: ?Site ID: [id number] ?Name: [email or web address] ?Address: [address] [place] [address] ?Director: Jesus Galindo MD Cuca Dutton [facility] Final Result Performing Organization Address City/State/[facility] Co de Phone Number [facility] [employer] [address] [place] [address] * HIV AG/AB, 4TH GEN W/RFX ([facility] ONLY) (11/08/2019 10:20 AM CDT) Pathologist [facility] HIV 1/2 AB+ HIV1 P24 AG NON-REACT NOAH NON-REACT NOAH [facility] Comment: HIV-1 antigen and HIV-1/HIV-2 antibodies were [...] ?? For additional information please refer to http://Adayana.Eduquia/faq/AUV637 (This link is being provided for informational/ educational purposes only.) The performance of this assay has not been clinically validated in patients less than 2 years old. 11/08/2019 10:2 0 AM CDT 11/09/2019 7:20 AM CDT Narrative Resulting Agency Comment Performing Organization Information: ?Site ID: BRIAN ?Name: [facility] Barnes ?Address: [address] [place] [address] ?Director: Billy Ang D.O., MPH Cuca Dutton [facility] Final Result [facility] [address] [place] [address], * HEPATITIS PANEL,ACUTE (11/08/2019 10:20 AM CDT) HAV IGM NON-REACT NOAH NON-REACT NOAH [facility] Comment: For additional information, please refer to http://SoothEase/faq/XQQ953 (This link is being provided for informational/ educational purposes only.) HEPATITIS B SURFACE AG NON-REACT NOAH NON-REACT NOAH [facility] HEP B CORE IGM NON-REACT NOAH NON-REACT NOAH [facility] HEPATITIS C AB NON-REACT NOAH NON-REACT NOAH [facility] SIGNAL TO CUTOFF 0.02 <1.00 [facility] Comment: HCV antibody was non-reactive. There is no laboratory evidence of HCV infection. In most cases, no further action is required. However, if recent HCV exposure is suspected, a test for HCV RNA (test code 20725) is suggested. For additional information please refer to http://Adayana.Eduquia/faq/HGZ19v2 (This link is being provided for informational/ educational purposes only.) 11/08/2019 10:2 0 AM CDT 11/09/2019 7:20 AM CDT Narrative Resulting Agency Comment Performing Organization Information: ?Site ID: BRIAN ?Name: [facility] ?Address: [address] [place], [place] [address] [address] ?Director: Billy Ang D.O., MPH [facility] Final Result Performing Organization Address [facility] de Phone Number [facility] [id number] [place] [address] [place] [address], * RPR (MONITOR) W/RFX TO TITER ([facility] ONLY) (11/08/2019 10:17 AM CDT) Pathologist [facility] RPR NON-REACTI VE NON-REACTI VE [facility] 11/08/2019 10:1 7 AM CDT 11/09/2019 7:18 AM CDT Narrative Resulting Agency Comment Performing Organization Information: ?Site ID: BRIAN ?Name: [facility] ?Address: [address] [place] [address] ?Director: Billy Ang D.O., MPH [facility] Final Result Performing Organization Address [facility] de Phone Number [facility] [address] [place] [address], * (ABNORMAL) VAGINITIS SCREEN ([facility] ONLY) (11/08/2019 10:15 AM CDT) CHLAMYDIA TRACHOMATIS RNA TMA NOT DETECTED [employer] N.GONORRHOEAE RNA TMA (QST) NOT DETECTED [facility] Comment: REFERENCE RANGE: NOT DETECTED Methodology: Ordnance Mechanic Mediated Amplification (TMA) to detect RNA. The analytical performance characteristics of this assay, when used to test SurePath(TM) specimens have been determined by [facility]. The modifications have not been cleared or approved by the FDA. This assay has been validated pursuant to the CLIA regulations and is used for clinical purposes. For additional information, please refer to https://education.WhereverTV.Babelverse/faq/CLG749 (This link is being provided for informational/ educational purposes only.) LACTOBACILLUS SPEC 5.8 Log (cells/m L) [facility] ATOPOBIUM VAGINAE RT-PCR 7.9 Log (cells/m L) [facility] MEGASPHAERA SPECIES 7.1 Log (cells/m L) [facility] GARDNERELLA VAGINALIS 8.0 Log (cells/m L) [facility] BACTERIAL VAGINITIS EQUIVOCAL(A) [facility] Comment: REFERENCE RANGE: ??BV [...] analytical performance characteristics have been determined by [facility]. It has not been cleared or approved by FDA. This assay has been validated pursuant to the CLIA regulations and is used for clinical purposes. TRICHOMONAS NOT DETECTED [facility] Comment: REFERENCE RANGE: NOT DETECTED Methodology: Ordnance Mechanic Mediated Amplification (TMA) For additional information, please refer to http://education.Eduquia/faq/Trichomonastma (This link is being provided for informational/educational [...] analytical performance characteristics have been determined by [facility]. It has not been cleared or approved by FDA. This assay has been validated pursuant to the CLIA regulations and is used for clinical purposes. CERVIX UTERI STRUCTURE / Unknown 11/08/2019 10:15 AM CDT 11/09/2019 7:18 AM CDT Narrative Resulting Agency Comment Performing Organization Information: ?Site ID: [id number] ?Name: [facility] ?Address: [address] [place] [address] ?Director: Jesus Galindo MD Cuca LEON MICROBIOLOGY - GENERAL ORDERAB LES Final Result [facility] [address] [place] [address] documented in this encounter Visit Diagnoses Diagnosis Exposure to sexually transmitted disease (STD)- Primary Contact with or exposure to other communicable diseases documented in this encounter Care Teams Drawer In Dobby Loom Relationship Specialty Start Date End Date Cuca Dutton FNP [address] [place] [address] PCP - General Nurse Practitioner Family 05/04/18 documented as of this encounter
--- OUTSIDE RECORDS SUMMARY | 2024-03-25 19:30 | XMS_ITS | Encounter Summary ---
Author Organization [facility] Address [facility]. [place], [place] [address] [place] [address] Care Team Providers Care Direct Service Worker Name Role Phone Cuca Dutton Primary Care Provider [phone] Encounter Details Date Type Department Care Team (Late st Contact Info) Description 09/18/2018 Orders Only [facility] Medical Group Family & Internal Medicine [facility] [address] [place] [address] Norma Araujo MA Social History Tobacco Use [...] on filedocumented in this encounter Care Teams Direct Service Worker Relationship Specialty Start Date End Date Cuca Dutton FNP [address] [place] [address] PCP - General Nurse Practitioner Family 05/04/18 documented as of this encounter
--- OUTSIDE RECORDS SUMMARY | 2024-03-25 19:30 | XMS_ITS | Encounter Summary ---
Author Organization [facility] Address [address] [place] [address]. [place], [place] [address] [place] [address] Care Team Providers Care Tax Staff Accountant Name Role Phone Cuca Dutton Primary Care Provider [phone] Reason for Visit * Reason Onset Date Comments Results 05/27/2020 Encounter Details Date Type Department Care Team (Late st Contact Info) Description 05/27/2020 Telephone [facility] Medical Group Family & Internal Medicine [address] [place] [address] Cuca Dutton FNP [facility] [place] [place] [address] Results Social History Tobacco Use [...] COVID-19? No / Unsure 05/19/2020 9:50 AM AIR COMPRESSOR OPERATOR documented as of this encounter Progress Notes * Joie Tran MA - 05/27/2020 11:10 AM CST Pt contacted successfully and V/U. BB 05/27/20 COMPRESSOR OPERATOR * Joie Tran MA - 05/27/2020 11:08 AM CST ----- Message from CAROLYN Martin sent at 05/26/2020 4:31 PM AIR COMPRESSOR OPERATOR ----- Labs are negative for any STDs. Vitamin d could be higher. She should be taking a vitamin d 3 supplement daily. Take a vitamin b 12 supplement daily. Other labs look good. COMPRESSOR OPERATOR documented in this encounter Plan of Treatment Not on file documented as of this encounter Visit Diagnoses Not on filedocumented in this encounter Additional Health Concerns Assessment Noted Time PHQ-9 Depression Total Score: 13 021 10:36 AM AIR COMPRESSOR OPERATOR documented as of this encounter Care Teams Tax Staff Accountant Relationship Specialty Start Date End Date Cuca Dutton FNP [address] [place] [address] PCP - General Nurse Practitioner Family 05/04/18 documented as of this encounter
--- OUTSIDE RECORDS SUMMARY | 2024-03-25 19:31 | XMS_ITS | Encounter Summary ---
Author Organization [facility] Address [address] [place] [address]. [place], [place] [address] [place] [address] Care Team Providers Care Graffiti Cleaner Name Role Phone Cuca Dutton Primary Care Provider [phone] Reason for Visit * Reason Comments Vaginal Problem x 2 months Encounter Details Date Type Department Care Team (Late st Contact Info) Description 05/08/2018 1:40 PM MOTOR SCOOTER REPAIRER Office Visit [facility] Medical Group Family & Internal Medicine - [place] [address] [place] [address] Cuca Dutton FNP [address] [place] [address] Vaginal Problem (x 2 months) [...] Comments Blood Pressure 130/69 05/08/2018 2:02 PM MOTOR SCOOTER REPAIRER Pulse 82 05/08/2018 2:02 PM MOTOR SCOOTER REPAIRER Temperature - - Respiratory Rate 16 05/08/2018 2:02 PM MOTOR SCOOTER REPAIRER Oxygen Saturation 99% 05/08/2018 2:02 PM MOTOR SCOOTER REPAIRER Inhaled Oxygen Concentration - - Weight 62.1 kg (137 lb) 05/08/2018 2:02 PM MOTOR SCOOTER REPAIRER Height 162.6 cm (5' 4 ) 05/08/2018 2:02 PM MOTOR SCOOTER REPAIRER Body Mass Index 23.52 05/08/2018 2:02 PM MOTOR SCOOTER REPAIRER Body Mass Index Percentile 72.70% 05/08/2018 2:0 2 PM MOTOR SCOOTER REPAIRER Growth Chart: CDC (Girls, 2- 20 Years) documented in this encounter Patient Instructions * Patient Instructions* Cuca Dutton, HAZARD WASTE HANDLER - 05/08/2018 1:40 PM MOTOR SCOOTER REPAIRER Patient Education Patient Education Vaginitis About this [...] partners. Where can I learn more? The [place] [employer] of Obstetricians and Gynecologists http://www.acog.org/Patients/FAQs/Vaginitis National [place] [employer] Child [employer] Development http://www.nichd.nih.gov/health/topics/vaginitis/conditioninfo/Pages/default.asp [...] right for you. Copyright Copyright ?? 2018 [employer] Inc. and its affiliates [...] and treatment options. Copyright Copyright ?? 2018 [employer] and its affiliates and/or licensors. All rights reserved. R SCOOTER REPAIRER documented in this encounter Progress Notes * [...] sooner if needed PCP: CAROLYN VALENZUELA 05/14/2018 R SCOOTER REPAIRER documented in this encounter Plan of Treatment Not on file documented as of this encounter Procedures Procedure Name Priority Date/Time Associated Diagnosis Comments MICHAEL PREP Routine 05/08/2018 3:21 PM MOTOR SCOOTER REPAIRER Vaginal odor High risk heterosexual behavior SMEAR, STAIN, WET PREP Today 05/08/2018 3:21 PM MOTOR SCOOTER REPAIRER Vaginal odor High risk heterosexual behavior URINALYSIS AUTO DIP Routine 05/08/2018 Vaginal odor documented in this encounter Results * MICHAEL PREP (05/08/2018 3:21 PM MOTOR SCOOTER REPAIRER) SPECIMEN SOURCE vaginal [facility] WBC'S (WET PREP) none [facility] BACTERIA (U) NONE SEEN NONE SEEN [facility] FUNGAL ELEMENTS NONE [facility] Vaginal swab (specimen) VAGINAL STRUCTURE / Unknown 05/08/2018 3:21 PM MOTOR SCOOTER REPAIRER Cuca LEON MICROBIOLOGY - GENERAL ORDERAB LES Final Result [facility] [address] [place] [address], * SMEAR, STAIN, WET PREP (05/08/2018 3:21 PM MOTOR SCOOTER REPAIRER) SPECIMEN SOURCE vaginal [facility] WBC'S (WET PREP) none [facility] RBC (WET PREP) occasional [facility] EPITHELIAL CELLS (WET PREP) present [facility] BACTERIA (U) NONE SEEN NONE SEEN [facility] CLUE CELLS none seen [facility] TRICHOMONAS negative Negative [facility] FUNGAL ELEMENTS none seen [facility] Vaginal swab (specimen) VAGINAL STRUCTURE / Unknown 05/08/2018 3:21 PM MOTOR SCOOTER REPAIRER Cuca LEON MICROBIOLOGY - GENERAL ORDERAB LES Final Result Performing Organization Address City/[facility]/[place] [address], * URINALYSIS AUTO DIP (05/08/2018) COLOR (U) YELLOW [facility] TRANSPARENCY CLEAR [facility] GLUCOSE (U) NEGATIVE NEGATIVE MG/DL [facility] BILIRUBIN (U) NEGATIVE NEGATIVE [facility] KETONES MG/DL (U) NEGATIVE NEGATIVE MG/DL [facility] SPECIFIC GRAVITY (U) 1.025 1.001 - 1.035 [facility] BLOOD (U) TRACE (Non Hemolyzed, Intact) NEGATIVE [facility] U PH 7.0 5.0 - 9.0 [facility] PROTEIN (U) NEGATIVE mg/dL [facility] UROBILINOGEN Normal 0.2 - 1.0 EU/dL = mg/dL [facility] NITRITES NEGATIVE NEGATIVE MG/DL [facility] LEUKOCYTES (U) NEGATIVE NEGATIVE [facility] URINE SPECIMEN OBTAINED BY CLEAN CATCH PROCEDURE / Unknown 05/08/2018 us Cuca LEON URINE ORDERABLES Final Result Performing Organization Address City/[facility]/[place] [address], documented in this encounter Visit Diagnoses Diagnosis Vaginal odor- Primary Unspecified symptom associated with female genital organs High risk heterosexual behavior Problems related to high-risk sexual behavior Anxiety Anxiety state, unspecified documented in this encounter Care Teams Graffiti Cleaner Relationship Specialty Start Date End Date Cuca Dutton FNP [address] [place] [address] PCP - General Nurse Practitioner Family 05/04/18 documented as of this encounter
--- OUTSIDE RECORDS SUMMARY | 2024-03-25 19:31 | XMS_ITS | Encounter Summary ---
Author Organization [facility] Address [address] [place] [address]. [address] [address] Care Team Providers Care Appraiser Land Name Role Phone Unavailable Primary Care Provider Unavailabl e Encounter Details Date Type Department Care Team (Latest Contact Info) Description 10/25/2017 Abstract [facility] Medical Group Social History Tobacco Use Types [...]
--- OUTSIDE RECORDS SUMMARY | 2024-03-25 19:31 | XMS_ITS | Encounter Summary ---
Author Organization [facility] Address [address] [place] [address]. [place], [place] [address] [place] [address] Care Team Providers Care Emergency Vehicle Dispatcher Name Role Phone Cuca Dutton Primary Care Provider Encounter Details Date Type Department Care Team (Late st Contact Info) Description 05/08/2018 Orders Only [facility] Medical Group Family & Internal Medicine [address] [address] Norma Araujo MA Social History Tobacco Use [...] on filedocumented in this encounter Care Teams Emergency Vehicle Dispatcher Relationship Specialty Start Date End Date Cuca Dutton FNP [address] [place] [address] PCP - General Nurse Practitioner Family 05/04/18 documented as of this encounter
--- OUTSIDE RECORDS SUMMARY | 2024-03-25 19:31 | XMS_ITS | Encounter Summary ---
Author Organization [facility] Address [address] [place] [address]. [place], [place] [address] [place] [address] Care Team Providers Care Furnace Combustion Analyst Name Role Phone Cuca Dutton Primary Care Provider [phone] Reason for Visit * Reason Comments Fatigue due to zoloft Encounter Details Date Type Department Care Team (Late st Contact Info) Description 06/22/2018 1:20 PM CDT Office Visit [facility] Medical Group Family & Internal Medicine [facility] [address] [place] [address] Cuca Dutton FNP [address] [place], [place] [phone] Fatigue (due to zoloft) Social History Tobacco [...] 06/22/2018 1:4 4 PM CDT Growth Chart: [facility] (Girls, 2- 20 Years) [...] file Gets together: Not on file Attends buddhism service: Not on file Active member of [...] - 3.74 uIU/ML 06/22/2018 9:36 PM CDT [facility] Comment: HIGH DOSES OF BIOTIN MAY INTERFERE WITH THIS TEST RESULT. CORRELATION TO CLINICAL HISTORY AND PRESENTATION RECOMMENDED. FREE T4 NOT INDICATED 06/22/2018 3:08 PM CDT Cuca LEON LABORATORY Final Result [facility] [address] [place] [address], [place] [phone] * (ABNORMAL) COMPREHENSIVE METABOLIC PANEL (06/22/2018 3:08 PM CDT) [facility] GLUCOSE 82 70 - 99 MG/DL 06/22/2018 9:36 PM CDT [facility] BUN 10 7 - 18 MG/DL 06/22/2018 9:36 PM CDT [facility] CREATININE S/P/B 0.66 0.55 - 1.02 MG/DL 06/22/2018 9:36 PM CDT [facility] SODIUM S/P/B 139 136 - 145 MMOL/L 06/22/2018 9:36 PM CDT [facility] POTASSIUM S/P/B 4.0 3.5 - 5.1 MMOL/L 06/22/2018 9:36 PM CDT [facility] CHLORIDE S/P/B 110(H) 100 - 108 MMOL/L 06/22/2018 9:36 PM CDT [facility] CO2 24.5 21 - 32 MMOL/L 06/22/2018 9:36 PM CDT [facility] CALCIUM S/P/B 8.6 8.5 - 10.1 MG/DL 06/22/2018 9:36 PM CDT [facility] BILIRUBIN TOTAL S/P/B 0.3 0.2 - 1.1 MG/DL 06/22/2018 9:36 PM CDT [facility] TOTAL PROTEIN S/P/B 7.1 6.4 - 8.2 G/DL 06/22/2018 9:36 PM CDT [facility] ALBUMIN S/P/B 3.9 3.4 - 5.0 G/DL 06/22/2018 9:36 PM CDT [facility] AST 20 15 - 37 U/L 06/22/2018 9:36 PM CDT [facility] ALT 17 14 - 55 U/L 06/22/2018 9:36 PM CDT [facility] ALKALINE PHOSPHATASE S/P/B 82 50 - 136 U/L 06/22/2018 9:36 PM CDT [facility] ANION GAP 8.5 8 - 20 MMOL/L 06/22/2018 9:36 PM CDT [facility] BUN CREATININE RATIO 15.0 6 - 26 06/22/2018 9:36 PM CDT [facility] A/G RATIO 1.2 1.0 - 2.0 RATIO 06/22/2018 9:36 PM CDT [facility] EGFR NON-AFR. AMER. >90 >90 ML/MIN/1.7 3 M2 06/22/2018 9:36 PM CDT [facility] EGFR AFR. AMER. >90 >90 ML/MIN/1.7 3 M2 06/22/2018 9:36 PM CDT [facility] Comment: NOTE: eGFR is not calculated for patients <18 years of age. This is an estimated GFR (CKD EPI) and should not be used for calculating drug doses. 06/22/2018 3:08 PM CDT Cuca Nato [facility] Final Result [facility] [address] [place] [address], [place] [phone] * (ABNORMAL) CBC W/DIFF AUTOMATED (06/22/2018 3:08 PM CDT) WBC 6.4 4.5 - 13.0 x10'3/uL 06/22/2018 8:57 PM CDT [facility] RBC 4.18(L) 4.20 - 5.40 x10'6/uL 06/22/2018 8:57 PM CDT [facility] HGB 12.1 12.0 - 16.0 G/DL 06/22/2018 8:57 PM CDT [facility] HCT 37.6(L) 38.0 - 48.0 % 06/22/2018 8:57 PM CDT [facility] MCV 90.0 80.0 - 94.0 FL 06/22/2018 8:57 PM CDT [facility] MCH 28.9 27.0 - 31.0 PG 06/22/2018 8:57 PM CDT [facility] MCHC 32.2 32.0 - 36.0 G/DL 06/22/2018 8:57 PM CDT [facility] RDW 14.4 11.5 - 14.5 % 06/22/2018 8:57 PM CDT [facility] PLT 323 130 - 400 x10'3/uL 06/22/2018 8:57 PM CDT [facility] MPV 9.9 9.3 - 12.2 FL 06/22/2018 8:57 PM CDT [facility] DIFFERENTIAL TYPE AUTOMATED DIFFERENTIAL 06/22/2018 8:57 PM CDT [facility] NEUTROPHILS % 47.4 % 06/22/2018 8:57 PM CDT [facility] LYMPHOCYTES % 42.9 % 06/22/2018 8:57 PM CDT [facility] MONOCYTES % 8.3 % 06/22/2018 8:57 PM CDT [facility] EOSINOPHILS 0.9 % 06/22/2018 8:57 PM CDT [facility] BASOPHILS 0.3 % 06/22/2018 8:57 PM CDT [facility] IMMATURE GRANS % 0.2(H) 0 % 06/23/19 19 8:57 PM CDT [facility] ABS. NEUTROPHILS TOTAL 3.03 1.80 - 8.00 x10'3/uL 06/22/2018 8:57 PM CDT [facility] ABS. LYMPHOCYTES 2.74 1.20 - 5.20 x10'3/uL 06/22/2018 8:57 PM CDT [facility] ABS. MONOCYTES 0.53 0.24 - 0.86 x10'3/uL 06/22/2018 8:57 PM CDT [facility] ABS. EOSINOPHILS 0.06 0.04 - 0.36 x10'3/uL 06/22/2018 8:57 PM CDT [facility] ABS. BASOPHILS 0.02 0.01 - 0.08 x10'3/uL 06/22/2018 8:57 PM CDT [facility] ABS. IMMATURE GRANULOCYTES 0.01 0.00 - 0.03 x10'3/uL 06/22/2018 8:57 PM CDT [facility] 06/22/2018 3:08 PM CDT Cuca LEON LABORAT[facility] Final Result [facility] [address] [place] [address], documented in this encounter Visit Diagnoses Diagnosis Anxiety- Primary Anxiety state, unspecified Dizziness Dizziness and giddiness documented in this encounter Care Teams Furnace Combustion Analyst Relationship Specialty Start Date End Date Cuca Dutton FNP [address] [place] [address] PCP - General Nurse Practitioner Family 05/04/18 documented as of this encounter
--- OUTSIDE RECORDS SUMMARY | 2024-03-25 19:31 | XMS_ITS | Encounter Summary ---
Author Organization [facility] [place] [facility] Address [facility]. [place], [place] [address] [place] [address] Care Team Providers Care Incident Response Consultant Name Role Phone Unavailable Primary Care Provider Unavailabl e Encounter Details Date Type Department Care Team (Latest Contact Info) Description 10/21/2017 Abstract [facility] Medical Group Kris Linder MD Social History [...] Skin Test Reading In Office; Status:Complete; Done: [id number] 01:45PM Performed:In Office; Due:[id number];Ordered; For:Immunization due; Ordered By:Cuca Dutton; Signatures Electronically signed by : Cyndi [place], ; Oct 24 2017 8:23AM ASSISTANT SERVICE MANAGER (Author) documented in this encounter Plan of [...]
--- OUTSIDE RECORDS SUMMARY | 2024-03-25 19:31 | XMS_ITS | Encounter Summary ---
Author Organization [facility] Address [address] [place] [address]. [place], [place] [address] [place] [address] Care Team Providers Care Storeroom Supervisor Name Role Phone Unavailable Primary Care Provider Unavailabl e Encounter Details Date Type Department Care Team (Late st Contact Info) Description 04/29/[address] [facility] [address] [place], [place] [address] , Kris Cano MD Social History Tobacco [...]
--- OUTSIDE RECORDS SUMMARY | 2024-03-25 19:31 | XMS_ITS | Encounter Summary ---
Author Organization [facility] Address [facility]. [place], [place] [address] [place] [address] Care Team Providers Care Casino Cage Cashier Name Role Phone Unavailable Primary Care Provider Unavailabl e Encounter Details Date Type Department Care Team (Latest Contact Info) Description 12/22/2017 Abstract [facility] Medical Group , Generic ConversionMD Social [...] Task Name: Medical Complaint [facility]back [facility] Regarding Patient: Stephanie Coates, Status: [...] Cyndi Wakefield, ; Dec 22 2017 1:27PM ENTRY LEVEL STAFF ACCOUNTANT (Author) documented in this encounter Plan of Treatment Not on file documented as of this encounter Visit Diagnoses Not on filedocumented in this encounter
--- OUTSIDE RECORDS SUMMARY | 2024-03-25 19:31 | XMS_ITS | Encounter Summary ---
Author Organization [facility] Address [address] [place] [address]. [place], [place] [address] [place] [address] Care Team Providers Care Donkey Ride Operator Name Role Phone Cuca Dutton Primary Care Provider [phone] Reason for Visit * Reason Onset Date Comments Lab Results 06/23/2018 Encounter Details Date Type Department Care Team (Late st Contact Info) Description 06/23/2018 Telephone [facility] Medical Group Family & Internal Medicine [id number] [place] [address] Cuca Dutton FNP [address] [place] [address] Lab Results Social History Tobacco [...] on filedocumented in this encounter Care Teams Donkey Ride Operator Relationship Specialty Start Date End Date Cuca Dutton FNP [address] [place] [address] PCP - General Nurse Practitioner Family 05/04/18 documented as of this encounter
--- OUTSIDE RECORDS SUMMARY | 2024-03-25 19:31 | XMS_ITS | Encounter Summary ---
Author Organization [facility] Address [facility] [place] [facility]. [place], [place] [address] [place] [address] Care Team Providers Care Carrier Loader Name Role Phone Unavailable Primary Care Provider Unavailabl e Encounter Details Date Type Department Care Team (Late st Contact Info) Description 10/19/2017 Abstract [facility] Medical Group Family & Internal Medicine [address] [place] [address] Cuca Dutton FNP [address] [place] [address] Social History Tobacco Use Types Packs/Day Years [...] 10/19/2017 10: 21 AM CDT Growth Chart: [facility] (Girls, 2- 20 Years) documented in this [...] and sports physical. Crystal sees Dr. Danielle, caterpillar mechanic, for treatment of acne. Prescribed Aldactone 50 mg for acne treatment. Crystal has history of anxiety issues including biting nails. States her heart will beat faster, and she will sweat during the anxiety attacks. Requesting to restart the Zoloft. Denies depression. Bilateral myringotomy in 2002. Employed at [employer] in [place]. Lives with parents. Sleeps approximately 5-6 hours [...] Norma Araujo; 10/19/2017 10:15:02 AM Vitals Recorded: [id number] 10:21AM Heart Rate 84 Respiration 16 Systolic [...] Anxiety; AMANDA = N; Verified Transmission to [facility]; Last Updated By: Sandra Chino; 10/19/2017 12:06:12 PM 2. Avoid alcoholic beverages.; Status:Complete; Done: 65Amq6105 11:19PM Ordered; For:Anxiety; Ordered By:Cuca Dutton; 3. Call if: New symptoms occur.; Status:Complete; Done: [id number] 11:19PM Ordered; For:Anxiety; Ordered By:Cuca Dutton; 4. Avoid foods and beverages that contain caffeine.; Status:Complete; Done: 29Oid7435 11:19PM Ordered; For:Anxiety; Ordered By:Cuca Dutton; 5. Call if: The symptoms seem worse.; Status:Complete; Done: 75Mdn6692 11:19PM Ordered; For:Anxiety; Ordered By:Cuca Dutton; 6. Be sure to get at least 8 hours of sleep every night.; Status:Complete; Done: 24Tty7953 11:19PM Ordered; For:Anxiety; Ordered By:Cuca Dutton; 7. Call if: You are having difficulty sleeping (insomnia).; Status:Complete; Done: 60Yrb9037 11:19PM Ordered; For:Anxiety; Ordered By:Cuca Dutton; 8. Continue with our present treatment plan.; Status:Complete; Done: 54Alz4543 11:19PM Ordered; For:Anxiety; Ordered By:Cuca Dutton; 9. Call if: Your feelings of anxiety are not getting better in 2 weeks.; Status:Complete; Done: 24Kyv9716 11:19PM Ordered; For:Anxiety; Ordered By:Cuca Dutton; 10. Decreasing the stress in your life may help your condition improve.; Status:Complete; Done: 24Oct2017 11:19PM Ordered; For:Anxiety; Ordered By:Cuca Dutton; 11. Call if: Your feelings of being frightened, nervous, anxious, and out of control are happening more often.; Status:Complete; Done: [id number] 11:19PM Ordered; For:Anxiety; Ordered By:Cuca Dutton; 12. Please bring all medicines, vitamins, and herbal supplements with you when you come to the office.; Status:Complete; Done: [id number] 11:19PM Ordered; For:Anxiety; Ordered By:Cuca Dutton; 13. [...] Cuca Dutton CNP; Oct 24 2017 11:20PM SUBMERSIBLE PILOT (Author) documented in this encounter Plan of Treatment Not on file documented as of this encounter Visit Diagnoses Not on filedocumented in this encounter
--- OUTSIDE RECORDS SUMMARY | 2024-03-25 19:31 | XMS_ITS | Encounter Summary ---
Author Organization [facility] Address [address] [place] [address]. [place], [place] [address] [place] [address] Care Team Providers Care Distillery Worker Name Role Phone Cuca Dutton Primary Care Provider [phone] Reason for Visit * Reason Onset Date Comments Vaginal Problem 09/01/2018 Encounter Details Date Type Department Care Team (Late st Contact Info) Description 09/01/2018 Telephone [facility] Medical Group Family & Internal Medicine [facility] [address] [place] [address] Cuca Dutton FNP [address] [place], [place] [phone] Vaginal Problem Social History Tobacco Use Types [...] to rx? gualberto hay Allergic to sulfa Cb#[phone] documented in this encounter Plan of Treatment Not on file documented as of this encounter Visit Diagnoses Diagnosis Yeast infection- Primary Other and unspecified mycoses documented in this encounter Care Teams Distillery Worker Relationship Specialty Start Date End Date Cuca Dutton FNP [address] [place] [address] PCP - General Nurse Practitioner Family 05/04/18 documented as of this encounter
--- OUTSIDE RECORDS SUMMARY | 2024-03-25 19:31 | XMS_ITS | Encounter Summary ---
Author Organization [facility] Address [address] [place] [address]. [place], [place] [address] [place] [address] Care Team Providers Care Websphere Process Server Developer Name Role Phone Cuca Dutton Primary Care Provider [phone] Reason for Visit * Reason Comments UTI burning, cloudy, con stant urination Encounter Details Date Type Department Care Team (Late st Contact Info) Description 09/04/2018 9:40 AM CDT Office Visit [facility] Medical Group Family & Internal Medicine [address] [place] [address] Cuca Dutton FNP [facility] [address] [place] [address] UTI (burning, cloudy, constant urination) Social History [...] right for you. Copyright Copyright ?? 2019 [employer]. and its affiliates and/or licensors. All rights [...] file Gets together: Not on file Attends restoration service: Not on file Active member of [...] URINE CLEAN CATCH 09/04/2018 5:44 PM CDT [facility] SPECIAL REQUESTS NO SPECIAL REQUEST 09/04/2018 5:44 PM CDT [facility] CULTURE RESULT >100,000 COL/ML ESCHERICHIA COLI 09/05/2018 10:49 PM CDT [facility] URINE SPECIMEN OBTAINED BY CLEAN CATCH [...] MICROBIOLOGY - GENERAL ORDERAB LES Final Result [facility] [address] [place] [address], * URINALYSIS AUTO DIP (09/04/2018) COLOR (U) YELLOW [facility] TRANSPARENCY CLOUDY [facility] GLUCOSE (U) NEGATIVE NEGATIVE MG/DL [facility] BILIRUBIN (U) NEGATIVE NEGATIVE [facility] KETONES MG/DL (U) NEGATIVE NEGATIVE MG/DL [facility] SPECIFIC GRAVITY (U) 1.020 1.001 - 1.035 [facility] BLOOD (U) TRACE (Non Hemolyzed, Intact) NEGATIVE [facility] U PH 7.0 5.0 - 9.0 [facility] PROTEIN (U) TRACE NEGATIVE mg/dL [facility] UROBILINOGEN 0.2 0.2 - 1.0 EU/dL = mg/dL [facility] NITRITES POSITIVE NEGATIVE MG/DL [facility] LEUKOCYTES (U) 2+ (MODERATE) NEGATIVE [facility] URINE SPECIMEN OBTAINED BY CLEAN CATCH PROCEDURE / Unknown 09/04/2018 us Cuca LEON URINE ORDERABLES Final Result Performing Organization Address City/State/[facility] Co de Phone Number [address] [address], documented in this encounter Visit Diagnoses Diagnosis Dysuria- Primary Acute cystitis without hematuria Acute cystitis Anxiety Anxiety state, unspecified documented in this encounter Care Teams Websphere Process Server Developer Relationship Specialty Start Date End Date Cuca Dutton FNP [address] [place] [address] PCP - General Nurse Practitioner Family 05/04/18 documented as of this encounter
--- OUTSIDE RECORDS SUMMARY | 2024-03-25 19:31 | XMS_ITS | Encounter Summary ---
Author Organization [facility] Address [facility]. [place], [place] [address] [place] [address] Care Team Providers Care Curtain Worker Name Role Phone Cuca Dutton Primary Care Provider [phone] Reason for Visit * Reason Onset Date Comments Results 05/12/2018 Encounter Details Date Type Department Care Team (Late st Contact Info) Description 05/12/2018 Telephone [facility] Medical Group Family & Internal Medicine [facility] [address] [place] [address] Cuca Dutton FNP [address] [place], [place] [id number] Results Social History Tobacco Use Types Packs/Day [...] 05/15/2018 1:46 PM CST Patient informed tn UTER FORENSIC EXAMINER * Norma Araujo MA - 05/12/2018 3:28 PM CST Lm 05/12/18 tn UTER FORENSIC EXAMINER * Norma Araujo MA - 05/12/2018 3:28 PM CST ----- Message from CAROLYN Martin sent at 05/12/2018 1:11 PM COMPUTER FORENSIC EXAMINER ----- Tests were negative for trichamonis, gonorrhea and chlamydia UTER FORENSIC EXAMINER documented in this encounter Plan of Treatment Not on file documented as of this encounter Visit Diagnoses Not on filedocumented in this encounter Care Teams Curtain Worker Relationship Specialty Start Date End Date Cuca Dutton FNP [address] [place] [address] PCP - General Nurse Practitioner Family 05/04/18 documented as of this encounter
--- OUTSIDE RECORDS SUMMARY | 2024-03-25 19:31 | XMS_ITS | Encounter Summary ---
Author Organization [facility] Address [facility]. [place], [place] [address] [place] [address] Care Team Providers Care Accounts Payable Bookkeeper Name Role Phone Cuca Dutton Primary Care Provider [phone] Encounter Details Date Type Department Care Team (Late st Contact Info) Description 05/12/2018 Orders Only [facility] Medical Group Family & Internal Medicine - [place] [address] [place] [address] Cuca Dutton FNP [address] [place] [address] Social History Tobacco Use Types Packs/Day Years [...] were negative for trichamonis, gonorrhea and chlamydia MAKER documented in this encounter Plan of Treatment Not on file documented as of this encounter Procedures Procedure Name Priority Date/Time Associated Diagnosis Comments CHLAM/GC/TRICHOMONA S PROFILE Routine 05/08/2018 3:22 PM GRID MAKER documented in this encounter Results * CHLAM/GC/TRICHOMONAS PROFILE (05/08/2018 3:22 PM GRID MAKER) CHLAMYDIA TRACHOMATIS RNA TMA NOT DETECTED NOT DETECTED [facility] N.GONORRHOEAE RNA TMA (QST) NOT DETECTED NOT DETECTED [facility] COMMENT: [facility] Comment: This test was performed using the APTIMA COMBO2 Assay ([employer] The analytical performance characteristics of this assay, when used to test SurePath specimens have been determined by [employer]. ?? TRICHOMONAS NOT DETECTED NOT DETECTED [facility] Comment: This test was performed using the APTIMA(R) Trichomonas vaginalis assay ([employer]Probe(R)). For more information on this test, go to: http://education.Buddytruk/faq/Trichomonastma NO COLLECTION DATE RECEIVED. WE HAVE USED THE DATE THE SPECIMEN WAS RECEIVED BY THIS LABORATORY THE COLLECTION DATE. IF THIS IS INCORRECT, PLEASE CONTACT CLIENT SERVICES. PHONE NUMBER: [phone] 05/08/2018 3:22 PM GRID MAKER 05/09/2018 7:00 AM GRID MAKER Narrative [facility] - 05/11/2018 4:49 PM GRID MAKER FASTING: UNKNOWN Resulting Agency Comment Performing Organization Information: ?Site ID: [place] ?Name: Deepti Barnes ?Address: [address] [place] [address] ?Director: Billy Ang D.O., MPH [facility] Final Result [facility] documented in this encounter Visit Diagnoses Not on filedocumented in this encounter Care Teams Accounts Payable Bookkeeper Relationship Specialty Start Date End Date Cuca Dutton FNP [address] [place] [address] PCP - General Nurse Practitioner Family 05/04/18 documented as of this encounter
--- OUTSIDE RECORDS SUMMARY | 2024-03-25 19:31 | XMS_ITS | Encounter Summary ---
Author Organization [facility] Address [address] [place] [address]. [place], [place] [address] [place] [address] Care Team Providers Care Sheet Metal Engineer Name Role Phone Cuca Dutton CAROLYN Primary Care Provider [phone] Reason for Visit * Reason Comments Arm Pain left arm pain Encounter Details Date Type Department Care Team (Late st Contact Info) Description 06/29/2018 1:00 PM CDT Office Visit [facility] Medical Group Family & Internal Medicine [facility] [address] [place] [address] Miguel Walsh DO [address] [place], [place] [phone] Arm Pain (left arm pain ) Social [...] 06/29/2018 1:0 9 PM CDT Growth Chart: [facility] (Girls, 2- 20 Years) documented in [...] file Gets together: Not on file Attends bahai service: Not on file Active member of [...] elbow documented in this encounter Care Teams Sheet Metal Engineer Relationship Specialty Start Date End Date Cuca Dutton FNP [address] [place] [address] PCP - General Nurse Practitioner Family 05/04/18 documented as of this encounter
--- OUTSIDE RECORDS SUMMARY | 2024-03-25 19:31 | XMS_ITS | Encounter Summary ---
Author Organization [facility] Address [address] [place] [address]. [place], [place] [address] [place] [address] Care Team Providers Care Commissioned Sales Associate Name Role Phone Cuca Dutton Primary Care Provider [phone] Encounter Details Date Type Department Care Team (Latest Contact Info) Description 06/22/2018 8:17 PM CDT - 06/22/2018 11:59 PM CDT Hospital Encounter [facility] [place] [address] Cuca Dutton FNP [address] [place], [place] [id number] Discharge Disposition: Home or Self Care (Routine [...] - 3.74 uIU/ML 06/22/2018 9:36 PM CDT [facility] Comment: HIGH DOSES OF BIOTIN MAY INTERFERE WITH THIS TEST RESULT. CORRELATION TO CLINICAL HISTORY AND PRESENTATION RECOMMENDED. FREE T4 NOT INDICATED 06/22/2018 3:08 PM CDT [facility] Final Result [facility] [address] [place] [address], [place] [phone] * (ABNORMAL) COMPREHENSIVE METABOLIC PANEL (06/22/2018 3:08 PM CDT) GLUCOSE 82 70 - 99 MG/DL 06/22/2018 9:36 PM CDT [facility] BUN 10 7 - 18 MG/DL 06/22/2018 9:36 PM CDT [facility] CREATININE S/P/B 0.66 0.55 - 1.02 MG/DL 06/22/2018 9:36 PM CDT [facility] SODIUM S/P/B 139 136 - 145 MMOL/L 06/22/2018 9:36 PM CDT [facility] POTASSIUM S/P/B 4.0 3.5 - 5.1 MMOL/L 06/22/2018 9:36 PM CDT [facility] CHLORIDE S/P/B 110(H) 100 - 108 MMOL/L 06/22/2018 9:36 PM CDT [facility] CO2 24.5 21 - 32 MMOL/L 06/22/2018 9:36 PM CDT [facility] CALCIUM S/P/B 8.6 8.5 - 10.1 MG/DL 06/22/2018 9:36 PM CDT [facility] BILIRUBIN TOTAL S/P/B 0.3 0.2 - 1.1 MG/DL 06/22/2018 9:36 PM CDT [facility] TOTAL PROTEIN S/P/B 7.1 6.4 - 8.2 G/DL 06/22/2018 9:36 PM CDT [facility] ALBUMIN S/P/B 3.9 3.4 - 5.0 G/DL 06/22/2018 9:36 PM CDT [facility] AST 20 15 - 37 U/L 06/22/2018 9:36 PM CDT [facility] ALT 17 14 - 55 U/L 06/22/2018 9:36 PM CDT [facility] ALKALINE PHOSPHATASE S/P/B 82 50 - 136 U/L 06/22/2018 9:36 PM CDT [facility] ANION GAP 8.5 8 - 20 MMOL/L 06/22/2018 9:36 PM CDT [facility] BUN CREATININE RATIO 15.0 6 - 26 06/22/2018 9:36 PM CDT [facility] A/G RATIO 1.2 1.0 - 2.0 RATIO 06/22/2018 9:36 PM CDT [facility] EGFR NON-AFR. AMER. >90 >90 ML/MIN/1.7 3 M2 06/22/2018 9:36 PM CDT [facility] EGFR AFR. AMER. >90 >90 ML/MIN/1.7 3 M2 06/22/2018 9:36 PM CDT [facility] Comment: NOTE: eGFR is not calculated for patients <18 years of age. This is an estimated GFR (CKD EPI) and should not be used for calculating drug doses. 06/22/2018 3:08 PM CDT us [facility] Final Result [facility] [address] [place] [address], [place] [phone] * (ABNORMAL) CBC W/DIFF AUTOMATED (06/22/2018 3:08 PM CDT) WBC 6.4 4.5 - 13.0 x10'3/uL 06/22/2018 8:57 PM CDT [facility] RBC 4.18(L) 4.20 - 5.40 x10'6/uL 06/22/2018 8:57 PM CDT [facility] HGB 12.1 12.0 - 16.0 G/DL 06/22/2018 8:57 PM CDT [facility] HCT 37.6(L) 38.0 - 48.0 % 06/22/2018 8:57 PM CDT [facility] MCV 90.0 80.0 - 94.0 FL 06/22/2018 8:57 PM CDT [facility] MCH 28.9 27.0 - 31.0 PG 06/22/2018 8:57 PM CDT [facility] MCHC 32.2 32.0 - 36.0 G/DL 06/22/2018 8:57 PM CDT [facility] RDW 14.4 11.5 - 14.5 % 06/22/2018 8:57 PM CDT [facility] PLT 323 130 - 400 x10'3/uL 06/22/2018 8:57 PM CDT [facility] MPV 9.9 9.3 - 12.2 FL 06/22/2018 8:57 PM CDT [facility] DIFFERENTIAL TYPE AUTOMATED DIFFERENTIAL 06/22/2018 8:57 PM CDT [facility] NEUTROPHILS % 47.4 % 06/22/2018 8:57 PM CDT [facility] LYMPHOCYTES % 42.9 % 06/22/2018 8:57 PM CDT [facility] MONOCYTES % 8.3 % 06/22/2018 8:57 PM CDT [facility] EOSINOPHILS 0.9 % 06/22/2018 8:57 PM CDT [facility] BASOPHILS 0.3 % 06/22/2018 8:57 PM CDT [facility] IMMATURE GRANS % 0.2(H) 0 % 06/23/19 19 8:57 PM CDT [facility] ABS. NEUTROPHILS TOTAL 3.03 1.80 - 8.00 x10'3/uL 06/22/2018 8:57 PM CDT [facility] ABS. LYMPHOCYTES 2.74 1.20 - 5.20 x10'3/uL 06/22/2018 8:57 PM CDT [facility] ABS. MONOCYTES 0.53 0.24 - 0.86 x10'3/uL 06/22/2018 8:57 PM CDT [facility] ABS. EOSINOPHILS 0.06 0.04 - 0.36 x10'3/uL 06/22/2018 8:57 PM CDT [facility] ABS. BASOPHILS 0.02 0.01 - 0.08 x10'3/uL 06/22/2018 8:57 PM CDT [facility] ABS. IMMATURE GRANULOCYTES 0.01 0.00 - 0.03 x10'3/uL 06/22/2018 8:57 PM CDT [facility] 06/22/2018 3:08 PM CDT [facility] Final Result [facility] [address] [place] [address], documented in this encounter Visit Diagnoses Diagnosis Vaginal odor Unspecified symptom associated with female genital organs High risk heterosexual behavior Problems related to high-risk sexual behavior Anxiety Anxiety state, unspecified Dizziness Dizziness and giddiness documented in this encounter Care Teams Commissioned Sales Associate Relationship Specialty Start Date End Date Cuca Dutton FNP [address] [place] [address] PCP - General Nurse Practitioner Family 05/04/18 documented as of this encounter
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
--- OUTSIDE RECORDS SUMMARY | 2024-03-25 19:34 | XMS_ITS | Encounter Summary ---
Author Organization [facility] Healthcare Address [address] [place] [address] Care Team Providers Care Police Judge Name Role Phone Marlin Contreras MD Primary Care Provider [phone] Bettie Cabezas MD Unavailable [phone] Encounter Details Date Type Department Care Team (Late st Contact Info) Description 04/14/2023 2:30 PM EDUCATIONAL AUDIOLOGIST Telemedicine [facility]- Psychiatry Clinic [address] [facility] [address] [place] [address] Bipolar affective disorder, remission status [...] often do you attend chur ch or congregational services? Never 02/23/2022 Do you belong to [...] the PHQ-9) 1 02/23/2022 [facility] [...] place to sleep or slept in a halfway (including now)? No 02/23/2022 Personal Safety Answer Date Recorded Have you ever been in or are you currently in a harmful physical or emotional relationship or is someone making you feel afraid or unsafe? Denies 08/24/2022 Comments No Sex and Gender Information Value Date Recorded Sex Assigned at Not on file Legal Sex Female 12:29 PM EDUCATIONAL AUDIOLOGIST Gender Identity Not on file Sexual Orientation Not on file documented as of this encounter Progress Notes * Bettie Cabezas MD - 04/14/2023 2:30 PM CST Patient ID: Stephanie Coates is a 23 y.o. female with a date of of 2000. She is presenting to the [facility] Psychiatry Clinic for a follow-up appointment. She was last seen on 03/23/2023. This was a telemedicine visit with Stephanie Coates alone which took place via real-time video connection. During the visit, I was located in the office and the patient was located at home in the state [facility]. The patient visit started at 2:30 and [...] records for this encounter. Bettie Cabezas MD Rolling Chair Pusher, PGY-4 ATIONAL AUDIOLOGIST documented in this encounter Plan of Treatment [...] documented as of this encounter Care Teams Police Judge Relationship Specialty Start Date End Date Marlin Contreras MD PCP - General 04/07/17 10/09/23 Bettie Cabezas MD [address] [place] [address] Resident Psychiatry 03/23/22 09/23/23 documented as of this encounter
--- OUTSIDE RECORDS SUMMARY | 2024-03-25 19:34 | XMS_ITS | Clinical Summary ---
Author Organization [facility] Address [address] [place] [address] Care Team Providers Care Hvac Design Mechanical Engineer Name Role Phone Cuca Dutton NP Primary Care Provider + [phone] Clarice Perkins MD Unavailable [phone] Allergies Active Allergy Reactions Criticality Noted Date [...] 02/02/2022 Assessment & Plan (03/23/2022 1:39 PM SENIOR MECHANICAL ENGINEER): Unremarkable exam this admit. Encouraged routine OP HCM with PCP. Assessment & Plan (02/23/2022 1:23 PM SENIOR MECHANICAL ENGINEER): No medical complaints or active medical issues identified Remainder of plan per Psychiatry Assessment & Plan (02/02/2022 3:25 PM SENIOR MECHANICAL ENGINEER): No active complaints or chronic medical conditions identified The rest of the plan is per the psych Service Resolved Problems Problem Noted Date Diagnosed Date Resolved Date Depression, unspecified depression type 08/23/2022 08/25/2022 Suicidal ideation 03/22/2022 03/23/2022 Assessment & Plan (03/23/2022 1:38 PM SENIOR MECHANICAL ENGINEER): Seen by psychiatry, management as elsewhere. Continue lithium, atarax and aristada for bipolar type 1 per psychiatry. Euthyroid. Monitoring for symptom improvement. Bipolar affective disorder t ype 1, current episode manic, severe, with psychotic symptoms 02/23/2022 12/12/2023 Assessment & Plan (02/23/2022 5:20 PM SENIOR MECHANICAL ENGINEER): As per Psychiatry Team Cannabis dependence 02/02/2022 12/12/19 24 Assessment & Plan (03/23/2022 1:36 PM SENIOR MECHANICAL ENGINEER): UDS+cannabinoids this admit. Pt endorses frequent use. Counseled on abstinence, pre-contemplational. Assessment & Plan (02/23/2022 5:20 PM SENIOR MECHANICAL ENGINEER): As per Psychiatry Team Bipolar affective disorder, current episode manic with psychotic symptoms (CMS/HCC) 02/01/2022 12/12/2023 Assessment & Plan (02/15/2022 10:40 PM SENIOR MECHANICAL ENGINEER): Stephanie is currently experiencing a manic episode. [...] Department Care Team Description 02/06/2024 9:15 AM SENIOR MECHANICAL ENGINEER Telemedicine [facility] [address] [place] [address] [place] [phone] Clarice Perkins MD Bipolar I disorder, current or most recent episode depressed, in full remission (HCC) (Primary Dx) 02/03/2024 Telephone [facility] [address] [place] [address] Health [address] [place] [phone] Clarice Perkins MD Appointment Reminder Call from [...] How often do you attend chur or yazdanism services? Never 02/23/2022 Do you belong to any clubs o r organizations such as mandaeism groups, unions, fraternal or athletic groups, or [...] staff should administer the PHQ-9) 1 02/23/2022 [facility] of Occupat ional Health - [...] file Legal Sex Female 12:29 PM SENIOR MECHANICAL ENGINEER Gender Identity Not on file Sexual Orientation [...] HPV Vaccines Completed 04/08/2012, 10/26, 10/05/2011 Insurance [facility] [employer] Address: [facility] [id number] [place] [id number] [employer] Address: [facility] [id number] [place] [address] Advance Directives For more information, please contact: [phone] * Full Code (Latest Code Status on File) Date Activated Date Inactivated Comments 08/24/2022 3:20 PM 08/26/2022 8:58 PM * Full Code Date Activated Date Inactivated Comments 03/22/2022 10:52 PM 03/24/2022 4:44 PM * Full Code Date Activated Date Inactivated Comments 02/23/2022 12:57 PM 02/27/2022 5:37 PM * Full Code Date Activated Date Inactivated Comments 02/01/2022 9:30 PM 02/16/2022 7:50 PM Care Teams Hvac Design Mechanical Engineer Relationship Specialty Start Date End Date Cuca Dutton NP PCP - General Nurse Practitioner 10/10/23 Clarice Perkins MD [address] [phone] [place] [address] Resident Psychiatry 10/10/23 09/21/24
--- OUTSIDE RECORDS SUMMARY | 2024-03-25 19:34 | XMS_ITS | Encounter Summary ---
Author Organization [facility] Healthcare Address [address] [place] [address] Care Team Providers Care Strategic Planning Director Name Role Phone Marlin Contreras MD Primary Care Provider [phone] Bettie Cabezas MD Unavailable [phone] Encounter Details Date Type Department Care Team (Late st Contact Info) Description 08/30/2023 Telephone [facility]- Psychiatry Clinic [address] [facility] Outpatient Health [address] [place] [address] Bettie Cabezas MD [address] [place], [place] [phone] Social History Tobacco Use Types Packs/Day Years [...] staff should administer the PHQ-9) 1 02/23/2022 [facility] of Occupat ional Health - [...] place to sleep or slept in a snf (including now)? No 02/23/2022 Personal Safety Answer Date Recorded Have you ever been in or are you currently in a harmful physical or emotional relationship or is someone making you feel afraid or unsafe? Denies 08/24/2022 Comments No Sex and Gender Information Value Date Recorded Sex Assigned at Not on file Legal Sex Female 12:29 PM DOOR INSTALLER Gender Identity Not on file Sexual Orientation Not on file documented as of this encounter Miscellaneous Notes * Telephone Encounter - Bettie Cabezas MD - 08/30/2023 12:19 PM CDT Attempted to reach patient multiple times via phone. Left voicemail that if patient had concerns orquestions to call assistant front desk manager. Also reminded her to talk with her PCP or HAIRSPRING FABRICATION SUPERVISOR if she plans to makechanges to her control since she is taking Lamictal. documented in this encounter Plan of Treatment Not on file documented as of this encounter Visit Diagnoses Not on filedocumented in this encounter Care Teams Strategic Planning Director Relationship Specialty Start Date End Date Marlin Contreras MD PCP - General 04/07/17 10/09/23 Bettie Cabezas MD [address] [place] [address] Resident Psychiatry 03/23/22 09/23/23 documented as of this encounter
--- OUTSIDE RECORDS SUMMARY | 2024-03-25 19:34 | XMS_ITS | Encounter Summary ---
Author Organization [facility] Healthcare Address [address] [place] [address] Care Team Providers Care Press Feeder Broomcorn Name Role Phone Marlin Contreras MD Primary Care Provider [phone] Bettie Cabezas MD Unavailable [phone] Encounter Details Date Type Department Care Team (Late st Contact Info) Description 07/29/2023 Telephone [facility]- Psychiatry Clinic [address] [facility] Outpatient Health [address] [place] [address] Bettie Cabezas MD [address] [facility] [place], [place] [id number] Social History Tobacco Use Types Packs/Day Years [...] How often do you attend chur or mormonism services? Never 02/23/2022 Do you belong to [...] PHQ-9) 1 02/23/2022 [facility] of Occupat ional Health - Occupational Stress [...] on file Legal Sex Female 12:29 PM FEEDER OPERATOR Gender Identity Not on file Sexual [...] on filedocumented in this encounter Care Teams Press Feeder Broomcorn Relationship Specialty Start Date End Date Marlin Contreras MD PCP - General 04/07/17 10/09/23 Bettie Cabezas MD [address] [place] [address] Resident Psychiatry 03/23/22 09/23/23 documented as of this encounter
--- OUTSIDE RECORDS SUMMARY | 2024-03-25 19:34 | XMS_ITS | Encounter Summary ---
Author Organization [facility] Healthcare Address [address] [place] [address] Care Team Providers Care Welfare Eligibility Interviewer Name Role Phone Cuca Dutton NP Primary Care Provider + [phone] Clarice Perkins MD Unavailable [phone] Reason for Visit * Reason Onset Date Comments Appointment Reminder Call 02/03/2024 Encounter Details Date Type Department Care Team (Late st Contact Info) Description 02/03/[address] [facility]- Psychiatry Clinic [address] [facility] Health [address] [place] [address] Clarice Perkins MD [address] [facility] [phone] [place] [address] Appointment Reminder Call Social History Tobacco Use [...] staff should administer the PHQ-9) 1 02/23/2022 [facility] of Occupat ional Health - Occupational Stress [...] on file Legal Sex Female 12:29 PM TABLE GAMES MANAGER Gender Identity Not on file Sexual Orientation Not on file documented as of this encounter Miscellaneous Notes * Telephone Encounter - Liberty Bustamante - 02/03/2024 8:46 AM CST Reminder call for next day visit. Confirmed _X__ Unconfirmed ____ Rescheduled date LIBERTY E GAMES MANAGER documented in this encounter Plan of Treatment Not on file documented as of this encounter Visit Diagnoses Not on filedocumented in this encounter Care Teams Welfare Eligibility Interviewer Relationship Specialty Start Date End Date Cuca Dutton NP PCP - General Nurse Practitioner 10/10/23 Clarice Perkins MD [address] [phone] [place] [address] Resident Psychiatry 10/10/23 09/21/24 documented as of this encounter
--- OUTSIDE RECORDS SUMMARY | 2024-03-25 19:34 | XMS_ITS | Encounter Summary ---
Author Organization [facility] Healthcare Address [address] [place] [address] Care Team Providers Care Storyboard Artist Name Role Phone Marlin Contreras MD Primary Care Provider [phone] Bettie Cabezas MD Unavailable [phone] Reason for Visit * Reason Onset Date Comments Med Management 03/15/2023 Encounter Details Date Type Department Care Team (Late st Contact Info) Description 03/15/2023 Telephone [facility] Psychiatry Clinic [address] [facility] Health [address] [place] [address] Bettie Cabezas MD [facility] [address] [place] [address] Med Management Social History Tobacco [...] How often do you attend chur or mosque services? Never 02/23/2022 Do you [...] staff should administer the PHQ-9) 1 02/23/2022 [facility] of Occupat ional Health - Occupational [...] place to sleep or slept in a group home (including now)? No 02/23/2022 Personal Safety Answer Date Recorded Have you ever been in or are you currently in a harmful physical or emotional relationship or is someone making you feel afraid or unsafe? 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 Traore, Patient calls to ask about medications being discussed via [employer]hart. Wants you to look at most recent message. Donna [phone] BUILDER documented in this encounter Plan of Treatment Not on file documented as of this encounter Visit Diagnoses Not on filedocumented in this encounter Care Teams Storyboard Artist Relationship Specialty Start Date End Date Marlin Contreras MD PCP - General 04/07/17 10/09/23 Bettie Cabezas MD [address] [place] [address] Resident Psychiatry 03/23/22 09/23/23 documented as of this encounter
--- OUTSIDE RECORDS SUMMARY | 2024-03-25 19:34 | XMS_ITS | Encounter Summary ---
Author Organization [facility] Healthcare Address [address] [place] [address] Care Team Providers Care Pump Service Supervisor Name Role Phone Marlin Contreras MD Primary Care Provider [phone] Bettie Cabezas MD Unavailable [phone] Encounter Details Date Type Department Care Team (Late st Contact Info) Description 06/21/2023 2:00 PM CDT Telemedicine [facility]- Psychiatry Clinic [address] [facility] Outpatient Health [address] [place] [address] Bipolar affective disorder, remission status [...] often do you attend chur ch or restorationism services? 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 female with a date of of 2000. She is presenting to the [facility] for a follow-up appointment. She was last seen on 05/17/2023. This was a telemedicine visit with Stephanie Coates alone which took place via real-time video connection. During the visit, I was located in the office and the patient was located at home in the state [facility]. The patient visit started at 1:58 and [...] well. 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 Bettie Cabezas MD Inside Solar Sales Consultant, PGY-4 documented in this encounter Plan of Treatment Not on file documented as of this encounter Visit Diagnoses Diagnosis Bipolar affective disorder, remission status unspecified (HCC)- Primary documented in this encounter Care Teams Pump Service Supervisor Relationship Specialty Start Date End Date Marlin Contreras MD PCP - General 04/07/17 10/09/23 Bettie Cabezas MD [address] [place] [address] Resident Psychiatry 03/23/22 09/23/23 documented as of this encounter
--- OUTSIDE RECORDS SUMMARY | 2024-03-25 19:34 | XMS_ITS | Encounter Summary ---
Author Organization [facility] Healthcare Address [address] [place] [address] Care Team Providers Care Trawl Net Maker Name Role Phone Marlin Contreras MD Primary Care Provider [phone] Bettie Cabezas MD Unavailable [phone] Encounter Details Date Type Department Care Team (Late st Contact Info) Description 03/16/2023 Orders Only [facility]- Psychiatry Clinic [address] [facility] Outpatient Health [address] [place] [address] Bettie Cabezas MD [address] [place] [address] Social History Tobacco Use Types [...] How often do you attend chur or hindu services? Never 02/23/2022 Do you [...] staff should administer the PHQ-9) 1 02/23/2022 [facility] of Occupat ionsd Health - Occupational Stress Questionnaire Answer Date [...] on file Legal Sex Female 12:29 PM LAB RN Gender Identity Not on file Sexual Orientation [...] switched to Zepbound due to insurance coverage. RN documented in this encounter Plan of Treatment Not on file documented as of this encounter Visit Diagnoses Not on filedocumented in this encounter Care Teams Trawl Net Maker Relationship Specialty Start Date End Date Marlin Contreras MD PCP - General 04/07/17 10/09/23 Bettie Cabezas MD [address] [facility] [address] [place] [address] Resident Psychiatry 03/23/22 09/23/23 documented as of this encounter
--- OUTSIDE RECORDS SUMMARY | 2024-03-25 19:34 | XMS_ITS | Encounter Summary ---
Author Organization [facility] Address [address] [place] [address] Phone Care Team Providers Care Pressurised Container Filler Name Role Phone Marlin Contreras MD Primary Care Provider [phone] Bettie Cabezas MD Unavailable [phone] Encounter Details Date Type Department Care Team (Late st Contact Info) Description 03/16/2023 Orders Only [facility] Psychiatry [address] [facility] 2[address] Floor [address] [place] [address] Bettie Cabezas MD [address] [place] [address] Social History Tobacco Use Types Packs/Day Years [...] How often do you attend chur or faith services? Never 02/23/2022 Do you [...] in a residential (including now)? No 02/23/2022 Personal Safety Answer Date Recorded Have you ever been in or are you currently in a harmful physical or emotional relationship or is someone making you feel afraid or unsafe? 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
--- OUTSIDE RECORDS SUMMARY | 2024-03-25 19:34 | XMS_ITS | Referral Summary ---
Author Organization [facility] Address [address] [place] [address] Care Team Providers Care Photographic Equipment Mechanic Name Role Phone Cuca Dutton NP Primary Care Provider [phone] Clarice Perkins MD Unavailable [phone] Encounters Date Type Department Care Team Description 02/06/2024 9:15 AM WATER PUMPING STATION ENGINEER Telemedicine [facility] [address] [place] [address] Outpatient Health [address] [place] [phone] Clarice Perkins MD Bipolar I disorder, current or most recent episode depressed, in full remission (HCC) (Primary Dx) 02/03/2024 Telephone [facility] [address] [place] [address] [place] [phone] Clarice Perkins MD Appointment Reminder Call [...] 02/02/2022 Assessment & Plan (03/23/2022 1:39 PM WATER PUMPING STATION ENGINEER): Unremarkable exam this admit. Encouraged routine OP HCM with PCP. Assessment & Plan (02/23/2022 1:23 PM WATER PUMPING STATION ENGINEER): No medical complaints or active medical issues identified Remainder of plan per Psychiatry Assessment & Plan (02/02/2022 3:25 PM WATER PUMPING STATION ENGINEER): No active complaints or chronic medical conditions identified The rest of the plan is per the psych Service Resolved Problems Problem Noted Date Diagnosed Date Resolved Date Depression, unspecified depression type 08/23/2022 08/25/2022 Suicidal ideation 03/22/2022 03/23/2022 Assessment & Plan (03/23/2022 1:38 PM WATER PUMPING STATION ENGINEER): Seen by psychiatry, management as elsewhere. Continue lithium, atarax and aristada for bipolar type 1 per psychiatry. Euthyroid. Monitoring for symptom improvement. Bipolar affective disorder t ype 1, current episode manic, severe, with psychotic symptoms 02/23/2022 12/12/2023 Assessment & Plan (02/23/2022 5:20 PM WATER PUMPING STATION ENGINEER): As per Psychiatry Team Cannabis dependence 02/02/2022 12/12/19 24 Assessment & Plan (03/23/2022 1:36 PM WATER PUMPING STATION ENGINEER): UDS+cannabinoids this admit. Pt endorses frequent use. Counseled on abstinence, pre-contemplational. Assessment & Plan (02/23/2022 5:20 PM WATER PUMPING STATION ENGINEER): As per Psychiatry Team Bipolar affective disorder, current episode manic with psychotic symptoms ([facility]) 02/01/2022 12/12/2023 Assessment & Plan (02/15/2022 10:40 PM WATER PUMPING STATION ENGINEER): Stephanie is currently experiencing a manic [...] any clubs o r organizations such as jainism groups, unions, fraternal or athletic groups, or [...] on file Legal Sex Female 12:29 PM WATER PUMPING STATION ENGINEER Gender Identity Not on file Sexual [...] Plan of Treatment Not on file Insurance [facility] Address: [facility] [id number] [place] [address] [employer] [facility] Address: [facility] [id number] [place] [address] Advance Directives For more information, please contact: [phone] * Full Code (Latest Code Status on File) Date Activated Date Inactivated Comments 08/24/2022 3:20 PM 08/26/2022 8:58 PM * Full Code Date Activated Date Inactivated Comments 03/22/2022 10:52 PM 03/24/2022 4:44 PM * Full Code Date Activated Date Inactivated Comments 02/23/2022 12:57 PM 02/27/2022 5:37 PM * Full Code Date Activated Date Inactivated Comments 02/01/2022 9:30 PM 02/16/2022 7:50 PM Care Teams Photographic Equipment Mechanic Relationship Specialty Start Date End Date Cuca Dutton NP PCP - General Nurse Practitioner 10/10/23 Clarice Perkins MD [phone] [place] [address] Resident Psychiatry 10/10/23 09/21/24
--- OUTSIDE RECORDS SUMMARY | 2024-03-25 19:34 | XMS_ITS | Encounter Summary ---
Author Organization [facility] Healthcare Address [address] [place] [address] Care Team Providers Care Imaging Scheduler Name Role Phone Marlin Contreras MD Primary Care Provider [phone] Bettie Cabezas MD Unavailable [phone] Encounter Details Date Type Department Care Team (Late st Contact Info) Description 05/17/2023 12:30 PM PRINCIPAL PRODUCT MANAGER Telemedicine - Psychiatry Clinic [address] [facility] Outpatient Health [address] [place] [address] Bipolar affective disorder, remission status [...] PHQ-9) 1 02/23/2022 [facility] Questionnaire Answer Date Recorded [...] on file Legal Sex Female 12:29 PM PRINCIPAL PRODUCT MANAGER Gender Identity Not on file Sexual [...] of 2000. She is presenting to the [facility] for a follow-up appointment. She was last seen on 04/14/2023. This was a telemedicine visit with Stephanei Coates alone which took place via real-time video connection. During the visit, I was located in the office and the patient was located at home in the state of [place]. The patient visit started at 12:30 and [...] records for this encounter. Bettie Cabezas MD Seat Joiner Chainstitch, PGY-4 CIPAL PRODUCT MANAGER documented in this encounter Plan of [...] documented as of this encounter Care Teams Imaging Scheduler Relationship Specialty Start Date End Date Marlin Contreras MD PCP - General 04/07/17 10/09/23 Bettie Cabezas MD [address] [place] [address] Resident Psychiatry 03/23/22 09/23/23 documented as of this encounter
--- OUTSIDE RECORDS SUMMARY | 2024-03-25 19:34 | XMS_ITS | Encounter Summary ---
Author Organization [facility] Healthcare Address [address] [place] [address] Care Team Providers Care General Road Foreman Name Role Phone Marlin Contreras MD Primary Care Provider [phone] Bettie Cabezas MD Unavailable [phone] Encounter Details Date Type Department Care Team (Late st Contact Info) Description 03/23/2023 1:30 PM SLEEPING CAR CONDUCTOR Telemedicine [facility]- Psychiatry Clinic [address] [facility] [address] [facility] [address] [place] [address] Bipolar affective disorder, remission status [...] staff should administer the PHQ-9) 1 02/23/2022 [facility] Questionnaire Answer Date [...] on file Legal Sex Female 12:29 PM SLEEPING CAR CONDUCTOR Gender Identity Not on file Sexual Orientation [...] of 2000. She is presenting to the [facility] for a follow-up appointment. She was last seen on 03/08/2023. This was a telemedicine visit with Stephanie Coates alone which took place via real-time video connection. During the visit, I was located in the office and the patient was located at home in the state of [place]. The patient visit started at 1:28 and [...] records for this encounter. Bettie Cabezas MD Clerk Of Court, PGY-4 PING CAR CONDUCTOR documented in this encounter Plan of Treatment [...] as of this encounter Care Teams General Road Foreman Relationship Specialty Start Date End Date Marlin Contreras MD PCP - General 04/07/17 10/09/23 Bettie Cabezas MD [address] [place] [address] Resident Psychiatry 03/23/22 09/23/23 documented as of this encounter
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
--- OUTSIDE RECORDS SUMMARY | 2024-03-25 19:34 | XMS_ITS | Encounter Summary ---
Author Organization [facility] Healthcare Address [address] [place] [address] Care Team Providers Care Natural Gas Technician Name Role Phone Marlin Contreras MD Primary Care Provider [phone] Bettie Cabezas MD Unavailable [phone] Reason for Visit * Reason Onset Date Comments LETTER REQUEST 06/06/2023 Follow-up 06/08/2023 Encounter Details Date Type Department Care Team (Late st Contact Info) Description 06/06/2023 Telephone [facility]- Psychiatry Clinic [address] 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 Will send it to his office after she signs JOHANNY. * Telephone Encounter - Sukhdev Guidryyl - 06/06/2023 1:35 PM CDT Patient is requesting a letter to go to her digital service engineer. I explained that she would need to [...] on filedocumented in this encounter Care Teams Natural Gas Technician Relationship Specialty Start Date End Date Marlin Contreras MD PCP - General 04/07/17 10/09/23 Bettie Cabezas MD [address] [place] [address] Resident Psychiatry 03/23/22 09/23/23 documented as of this encounter
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
--- OUTSIDE RECORDS SUMMARY | 2024-03-25 19:34 | XMS_ITS | Encounter Summary ---
Author Organization [facility] Healthcare Address [address] [place] [address] Care Team Providers Care Branch Or Department Chief Librarian Name Role Phone Marlin Contreras MD Primary Care Provider [phone] Bettie Cabezas MD Unavailable [phone] Cuca Dutton NP Primary Care Provider [phone] Clarice Perkins MD Unavailable [phone] Encounter Details Date Type Department Care Team (Latest Contact Info) Description 03/16/2023 Orders Only Psychiatry Bettie Cabezas MD [address] [place] [address] Social History Tobacco Use Types [...] How often do you attend chur or quaker services? Never 02/23/2022 Do you belong to any clubs o r organizations such as sabianist groups, unions, fraternal or athletic groups, or [...] on file Legal Sex Female 12:29 PM SCALEHOUSE ATTENDANT Gender Identity Not on file Sexual Orientation [...] documented as of this encounter Care Teams Branch Or Department Chief Librarian Relationship Specialty Start Date End Date Marlin Contreras MD PCP - General 04/07/17 10/09/23 Cuca Dutton NP [address] [place] [address] PCP - General Nurse Practitioner 10/10/23 Bettie Cabezas MD [address] [place] [address] Resident Psychiatry 03/23/22 09/23/23 Clarice Perkins MD [address] [facility] [phone] [place] [address] Resident Psychiatry 10/10/23 09/21/24 documented as of this encounter
--- OUTSIDE RECORDS SUMMARY | 2024-03-25 19:34 | XMS_ITS | Encounter Summary ---
Author Organization [facility] Healthcare Address [address] [place] [address] Care Team Providers Care In Service Educator Name Role Phone Marlin Contreras MD Primary Care Provider [phone] Bettie Cabezas MD Unavailable [phone] Reason for Visit * Reason Onset Date Comments Follow-up 06/21/2023 Encounter Details Date Type Department Care Team (Late st Contact Info) Description 06/17/2023 Telephone [facility]- Psychiatry Clinic [address] [facility] [address] [place] [address] Bettie Cabezas MD [facility] [address] [place] [address] Follow-up Social History Tobacco Use [...] often do you attend chur ch or islam services? Never 02/23/2022 Do you belong to [...] staff should administer the PHQ-9) 1 02/23/2022 [facility] of Occupat ional Health - Occupational Stress [...] on file Legal Sex Female 12:29 PM STRAIGHT LINE EDGER Gender Identity Not on file Sexual Orientation [...] number. She was informed that she could picker feeder letter. Riana * Telephone Encounter - Sukhdev Guidryyl - 06/17/2023 12:55 PM CDT ----- Message from Bettie Cabezas MD sent at 06/14/2023 2:33 PM CDT ----- Letter for patient's lawn care technician has been uploaded to her chart with signature. Patient is going to callback with fax number for lawn care technician for it to be sent to. She already signed an JOHANNY so once she gets the number would you fax the letter to her lawn care technician? Thank you! documented in this encounter Plan of Treatment Not on file documented as of this encounter Visit Diagnoses Not on filedocumented in this encounter Care Teams In Service Educator Relationship Specialty Start Date End Date Marlin Contreras MD PCP - General 04/07/17 10/09/23 Bettie Cabezas MD [address] [place] [address] Resident Psychiatry 03/23/22 09/23/23 documented as of this encounter
--- OUTSIDE RECORDS SUMMARY | 2024-03-25 19:34 | XMS_ITS | Encounter Summary ---
Author Organization [facility] Healthcare Address [address] [place] [address] Care Team Providers Care Vp Software Name Role Phone Marlin Contreras MD Primary Care Provider [phone] Bettie Cabezas MD Unavailable [phone] Encounter Details Date Type Department Care Team (Late st Contact Info) Description 07/28/2023 1:00 PM CDT Telemedicine [facility]- Psychiatry Clinic [address] [facility] [address] [place] [address] Bipolar affective disorder, remission status [...] any clubs o r organizations such as islam groups, unions, fraternal or athletic groups, or [...] [facility] of Occupat ional [facility] - Occupational Stress Questionnaire Answer Date Recorded [...] on file 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 She is presenting to the [facility] Psychiatry Clinic for a follow-up appointment. She was last seen on 06/21/2023. This was a telemedicine visit with Stephanie Coates alone which took place via real-time video connection. During the visit, I was located in the office and the patient was located at home in the state of [place]. The patient visit started at 1:00 and [...] records for this encounter. Bettie Cabezas MD Film And Video Graphics Designer, PGY-4 documented in this encounter Plan of [...] as of this encounter Care Teams Vp Software Relationship Specialty Start Date End Date Marlin Contreras MD PCP - General 04/07/17 10/09/23 Bettie Cabezas MD [address] [place] [address] Resident Psychiatry 03/23/22 09/23/23 documented as of this encounter
--- OUTSIDE RECORDS SUMMARY | 2024-03-25 19:34 | XMS_ITS | Encounter Summary ---
Author Organization [facility] Healthcare Address [address] [place] [address] Care Team Providers Care Facility Maintenance Helper Name Role Phone Marlin Contreras MD Primary Care Provider Bettie Cabezas MD Unavailable [phone] Reason for Visit * Reason Onset Date Comments Scheduling Appointments 05/02/2023 Encounter Details Date Type Department Care Team (Late st Contact Info) Description 05/02/2023 Telephone [facility]- Psychiatry Clinic [address] [facility] [address] [place] [address] Bettie Cabezas MD [facility] [address] [place] [address] Scheduling Appointments Social History Tobacco [...] How often do you attend chur or alevism services? 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 If you could let us know the time for the 05/17. Patient stated the afternoon. Please call to confirm with patient. Let us know if this in vis zoom. Riana IDE SALES REPRESENTATIVE INSURANCE * Telephone Encounter - Bettie Cabezas MD - 05/02/2023 10:38 AM OUTSIDE SALES REPRESENTATIVE INSURANCE Attempted to contact patient after she did not present for zoom visit, left a voicemail to try to reschedule for 05/17 and for patient to notify provider if there were concerns in the meantime. IDE SALES REPRESENTATIVE INSURANCE documented in this encounter Plan of Treatment Not on file documented as of this encounter Visit Diagnoses Not on filedocumented in this encounter Care Teams Facility Maintenance Helper Relationship Specialty Start Date End Date Marlin Contreras MD PCP - General 04/07/17 10/09/23 Bettie Cabezas MD [address] [place] [address] Resident Psychiatry 03/23/22 09/23/23 documented as of this encounter
--- OUTSIDE RECORDS SUMMARY | 2024-03-25 19:34 | XMS_ITS | Encounter Summary ---
Author Organization [facility] Healthcare Address [address] [place] [address] Care Team Providers Care Marketing Professor Name Role Phone Marlin Contreras MD Primary Care Provider [phone] Bettie Cabezas MD Unavailable [phone] Reason for Visit * Reason Onset Date Comments Follow-up 07/29/2023 Encounter Details Date Type Department Care Team (Late st Contact Info) Description 07/29/2023 Telephone [facility]- Psychiatry Clinic [address] [facility] [address] [place] [address] Bettie Cabezas MD [facility] [address] [place] [address] Follow-up Social History Tobacco Use [...] any clubs o r organizations such as zoroastrianism groups, unions, fraternal or athletic groups, or [...] staff should administer the PHQ-9) 1 02/23/2022 [facility] [place] of Occupat ional Health - Occupational Stress [...] file 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
--- OUTSIDE RECORDS SUMMARY | 2024-03-25 19:34 | XMS_ITS | Encounter Summary ---
Author Organization [facility] Healthcare Address [address] [place] [address] Care Team Providers Care Machine Clothing Man Name Role Phone Marlin Contreras MD Primary Care Provider [phone] Bettie Cabezas MD Unavailable [phone] Reason for Visit * Reason Onset Date Comments Med Management 03/24/2023 Encounter Details Date Type Department Care Team (Late st Contact Info) Description 03/24/2023 Telephone [facility]- Psychiatry Clinic [address] [facility] [address] [place] [address] Bettie Cabezas MD [facility] [address] [place] [address] Med Management Social History Tobacco [...] How often do you attend chur or gnosticist services? 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 Prior auth is needed and was told it was sent to the office. [phone] Provider has been smart webbed please review stephanie coates 2000 encounter sugar TRONIC DEVELOPMENT TECHNICIAN documented in this encounter Plan of Treatment Not on file documented as of this encounter Visit Diagnoses Not on filedocumented in this encounter Care Teams Machine Clothing Man Relationship Specialty Start Date End Date Marlin Contreras MD PCP - General 04/07/17 10/09/23 Bettie Cabezas MD [address] [place] [address] Resident Psychiatry 03/23/22 09/23/23 documented as of this encounter
--- OUTSIDE RECORDS SUMMARY | 2024-03-25 19:34 | XMS_ITS | Encounter Summary ---
Author Organization [facility] Address [address] [place] [address] Phone Care Team Providers Care Forging Die Sinker Name Role Phone Marlin Contreras MD Primary Care Provider [phone] Bettie Cabezas MD Unavailable [phone] Encounter Details Date Type Department Care Team (Late st Contact Info) Description 03/23/2023 Orders Only [facility] Psychiatry [address] [facility] [address] [place] [address] Bettie Cabezas MD [address] [place] [address] Social History Tobacco Use Types Packs/Day Years [...] any clubs o r organizations such as scientology groups, unions, fraternal or athletic groups, or [...] should administer the PHQ-9) 1 02/23/2022 [facility] of Occupat ional Health - Occupational [...] place to sleep or slept in a skilled nursing (including now)? No 02/23/2022 Personal Safety Answer Date Recorded Have you ever been in or are you currently in a harmful physical or emotional relationship or is someone making you feel afraid or unsafe? 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 S PULLER documented in this encounter Plan of Treatment Not on file documented as of this encounter Visit Diagnoses Not on filedocumented in this encounter Discontinued Medications Medication Sig Discontinue Reason Start Date End Da te tirzepatide (MOUNJARO) 2.5 mg/0.5 mL pen injectorIndications:Dayana management Inject 0.5 mL (2.5 mg total) under the skin every 7 days 03/16/2023 03/23/2023 documented as of this encounter Care Teams Forging Die Sinker Relationship Specialty Start Date End Date Marlin Contreras MD PCP - General 04/07/17 10/09/23 Bettie Cabezas MD [address] [place] [address] Resident Psychiatry 03/23/22 09/23/23 documented as of this encounter
--- OUTSIDE RECORDS SUMMARY | 2024-03-25 19:35 | XMS_ITS | Encounter Summary ---
Author Organization [facility] Healthcare Address [address] [place] [address] Care Team Providers Care Ecommerce Analyst Name Role Phone Marlin Contreras MD Primary Care Provider [phone] Bettie Cabezas MD Unavailable [phone] Reason for Visit * Reason Onset Date Comments Follow-up 09/08/2022 Encounter Details Date Type Department Care Team (Late st Contact Info) Description 09/08/2022 Telephone [facility]- Psychiatry Clinic [address] [facility] [address] [place] [address] Bettie Cabezas MD [facility] [address] [place] [address] Follow-up Social History Tobacco Use [...] often do you attend chur ch or advent services? 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
--- OUTSIDE RECORDS SUMMARY | 2024-03-25 19:35 | XMS_ITS | Encounter Summary ---
Author Organization [facility] Healthcare Address [address] [place] [address] Care Team Providers Care Platinum Smith Name Role Phone Marlin Contreras MD Primary Care Provider [phone] Bettie Cabezas MD Unavailable [phone] Encounter Details Date Type Department Care Team (Late st Contact Info) Description 01/04/2023 2:00 PM CDT Telemedicine [facility]- Psychiatry Clinic [address] [facility] [address] [place] [address] Bipolar affective disorder, remission status [...] often do you attend chur ch or sikhism services? Never 02/23/2022 Do you belong to [...] [facility] of Occupat ional [facility] - Occupational Stress Questionnaire Answer Date Recorded [...] place to sleep or slept in a retirement (including now)? No 02/23/2022 Personal Safety Answer Date Recorded Have you ever been in or are you currently in a harmful physical or emotional relationship or is someone making you feel afraid or unsafe? 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 She is presenting to the [facility] for a follow-up appointment. She was last seen on 10/27/2022. This was a telemedicine visit with Stephanie Coates alone which took place via real-time video connection. During the visit, I was located at home and the patient was located at home in the [facility]. The patient visit started at 2:00pm and [...] has started Lamictal with plan to discontinue [place] with ongoing skin side effects. Since starting [...] medication list is more manageable after stopping [place]. Plan: 1. Pharmacotherapy: -continue Latuda 80mg nightly [...] records for this encounter. Bettie Traore MD Chief Airport Guide, PGY-4 documented in this encounter Plan of [...] documented as of this encounter Care Teams Platinum Smith Relationship Specialty Start Date End Date Marlin Contreras MD PCP - General 04/07/17 10/09/23 Bettie Cabezas MD [address] [place] [address] Resident Psychiatry 03/23/22 09/23/23 documented as of this encounter
--- OUTSIDE RECORDS SUMMARY | 2024-03-25 19:35 | XMS_ITS | Encounter Summary ---
Author Organization [facility] Healthcare Address [address] [place] [address] Care Team Providers Care Instructor Apparel Manufacture Name Role Phone Marlin Contreras MD Primary Care Provider [phone] Bettie Cabezas MD Unavailable [phone] Encounter Details Date Type Department Care Team (Late st Contact Info) Description 01/18/2023 2:00 PM CDT Telemedicine [facility]- Psychiatry Clinic [address] [facility] [address] [place] [address] Bipolar affective disorder, remission status [...] staff should administer the PHQ-9) 1 02/23/2022 [facility] of Occupat ional [facility] - Occupational Stress Questionnaire Answer [...] on file 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 female with a date of of 2000. She is presenting to the [facility] Psychiatry Clinic for a follow-up [...] rash to her arms and legs. Her fiber product cutting machine operator was contacted and did not think the rash was due to Lamictal. There is no itching, burning, or fever. She will see her fiber product cutting machine operator in person tomorrow. Mood has been good, [...] medication list is more manageable after stopping [place]. Plan: 1. Pharmacotherapy: -continue Latuda 80mg nightly [...] records for this encounter. Bettie Traore MD Plant Attendant Or Assistant Operator, PGY-4 documented in this encounter Plan of Treatment Not on file documented as of this encounter Visit Diagnoses Diagnosis Bipolar affective disorder, remission status unspecified (HCC)- Primary documented in this encounter Care Teams Instructor Apparel Manufacture Relationship Specialty Start Date End Date Marlin Contreras MD PCP - General 04/07/17 10/09/23 Bettie Cabezas MD [address] [place] [address] Resident Psychiatry 03/23/22 09/23/23 documented as of this encounter
--- OUTSIDE RECORDS SUMMARY | 2024-03-25 19:35 | XMS_ITS | Encounter Summary ---
Author Organization [facility] Healthcare Address [address] [place] [address] Care Team Providers Care Wildlife Policy Professional Name Role Phone Malrin Contreras MD Primary Care Provider [phone] Bettie Cabezas MD Unavailable [phone] Reason for Visit * Reason Onset Date Comments Follow-up 12/20/2022 Encounter Details Date Type Department Care Team (Latest Contact Info) Description 12/20/2022 Telephone Psychiatry Bettie Cabezas MD [address] [place], [place] [id number] Follow-up Social History Tobacco Use Types Packs/Day [...] often do you attend chur ch or yarsani services? 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
--- OUTSIDE RECORDS SUMMARY | 2024-03-25 19:35 | XMS_ITS | Encounter Summary ---
Author Organization [facility] Healthcare Address [address] [place] [address] Care Team Providers Care Project Leader Name Role Phone Marlin Contreras MD Primary Care Provider [phone] Bettie Cabezas MD Unavailable [phone] Reason for Visit * Reason Onset Date Comments Scheduling Appointments 09/20/2022 Encounter Details Date Type Department Care Team (Late st Contact Info) Description 09/20/2022 Telephone [facility]- Psychiatry Clinic [address] [facility] [address] [place] [address] Bettie Cabezas MD [facility] [address] [place] [address] Scheduling Appointments Social History Tobacco [...] any clubs o r organizations such as sikh groups, unions, fraternal or athletic groups, or [...] staff should administer the PHQ-9) 1 02/23/2022 [facility] of Occupat ional Health - Occupational [...] on file 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
--- OUTSIDE RECORDS SUMMARY | 2024-03-25 19:35 | XMS_ITS | Encounter Summary ---
Author Organization [facility] Healthcare Address [address] [place] [address] Care Team Providers Care Numerical Control Router Operator Name Role Phone Marlin Contreras MD Primary Care Provider [phone] Bettie Cabezas MD Unavailable [phone] Encounter Details Date Type Department Care Team (Late st Contact Info) Description 01/21/2023 Orders Only [facility]- Psychiatry Clinic [address] [facility] [address] [place] [address] Bettie Cabezas MD [address] [place] [address] Social History Tobacco Use Types [...] How often do you attend chur or scientology services? 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 Refills were sent for Wellbutrin, Lamictal, [place], and Latuda. documented in this encounter Plan [...] documented as of this encounter Care Teams Numerical Control Router Operator Relationship Specialty Start Date End Date Marlin Contreras MD PCP - General 04/07/17 10/09/23 Bettie Cabezas MD [address] [place] [address] Resident Psychiatry 03/23/22 09/23/23 documented as of this encounter
--- OUTSIDE RECORDS SUMMARY | 2024-03-25 19:35 | XMS_ITS | Encounter Summary ---
Author Organization [facility] Healthcare Address [address] [place] [address] Care Team Providers Care Information Security Manager Name Role Phone Marlin Contreras MD Primary Care Provider [phone] Bettie Cabezas MD Unavailable [phone] Encounter Details Date Type Department Care Team (Latest Contact Info) Description 02/14/2023 Telephone Psychiatry Bettie Cabezas MD [address] [place] [address] Social History Tobacco Use Types Packs/Day Years [...] any clubs o r organizations such as anglican groups, unions, fraternal or athletic groups, or [...] staff should administer the PHQ-9) 1 02/23/2022 [facility] - Occupational Stress Questionnaire Answer [...] on file 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 Since [...] will reach out if concerns arise sooner. MACHINE OPERATOR documented in this encounter Plan of Treatment Not on file documented as of this encounter Visit Diagnoses Not on filedocumented in this encounter Care Teams Information Security Manager Relationship Specialty Start Date End Date Marlin Contreras MD PCP - General 04/07/17 10/09/23 Bettie Cabezas MD [address] [place] [address] Resident Psychiatry 03/23/22 09/23/23 documented as of this encounter
--- OUTSIDE RECORDS SUMMARY | 2024-03-25 19:35 | XMS_ITS | Encounter Summary ---
Author Organization [facility] Healthcare Address [address] [place] [address] Care Team Providers Care Web Production Assistant Name Role Phone Marlin Contreras MD Primary Care Provider [phone] Bettie Cabezas MD Unavailable [phone] Encounter Details Date Type Department Care Team (Late st Contact Info) Description 03/08/2023 2:30 PM WAREHOUSE ORDER FILLER Telemedicine [facility]- Psychiatry Clinic [address] [facility] [address] [place] [address] Bipolar affective disorder, remission status [...] often do you attend chur ch or jew services? 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 She is presenting [facility] Psych[facility]ry Clinic for a follow-up appointment. She was last seen on 02/22/2023. This was a telemedicine visit with Stephanie Coates alone which took place via real-time video connection. During the visit, I was located at home and [facility] The patient visit started at 2:30pm and [...] medication list is more manageable after stopping [place] and watch to monitor if patient has weight loss with stopping [place]. Plan: 1. Pharmacotherapy: -continue Latuda 80mg nightly [...] records for this encounter. Bettie Cabezas MD Cyber Defense Incident Responder, PGY-4 HOUSE ORDER FILLER documented in this encounter Plan of Treatment [...] documented as of this encounter Care Teams Web Production Assistant Relationship Specialty Start Date End Date Marlin Contreras MD PCP - General 04/07/17 10/09/23 Bettie Cabezas MD [address] [place] [address] Resident Psychiatry 03/23/22 09/23/23 documented as of this encounter
--- OUTSIDE RECORDS SUMMARY | 2024-03-25 19:35 | XMS_ITS | Encounter Summary ---
Author Organization [facility] Healthcare Address [address] [place] [address] Care Team Providers Care Lock Fitter Name Role Phone Marlin Contreras MD Primary Care Provider [phone] Bettie Cabezas MD Unavailable [phone] Reason for Visit * Reason Onset Date Comments Appointment Reminder Call 09/21/2022 Encounter Details Date Type Department Care Team (Late st Contact Info) Description 09/21/2022 Telephone [facility] Psychiatry Clinic [address] [facility] [address] [place] [address] Bettie Cabezas MD [facility] [address] [place] [address] Appointment Reminder Call Social History [...] any clubs o r organizations such as mu-ism groups, unions, fraternal or athletic groups, or [...] staff should administer the PHQ-9) 1 02/23/2022 [facility] of Occupat ional Health - Occupational Stress [...] on file 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 Left message. Pat documented in this encounter Plan of Treatment Not on file documented as of this encounter Visit Diagnoses Not on filedocumented in this encounter Care Teams Lock Fitter Relationship Specialty Start Date End Date Marlin Contreras MD PCP - General 04/07/17 10/09/23 Bettie Cabezas MD [address] [place] [address] Resident Psychiatry 03/23/22 09/23/23 documented as of this encounter
--- OUTSIDE RECORDS SUMMARY | 2024-03-25 19:35 | XMS_ITS | Encounter Summary ---
Author Organization [facility] Healthcare Address [address] [place] [address] Care Team Providers Care Data Migration Lead Name Role Phone Marlin Contreras MD Primary Care Provider [phone] Bettie Cabezas MD Unavailable [phone] Encounter Details Date Type Department Care Team (Late st Contact Info) Description 03/10/2023 Telephone [facility]- Psychiatry Clinic [address] [facility] [address] [place] [address] Catrina Trejo RN Social History Tobacco Use [...] staff should administer the PHQ-9) 1 02/23/2022 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 Sent Ozempic script in will have to see if insurance will cover it. ENSATION ADJUSTER documented in this encounter Plan of Treatment Not on file documented as of this encounter Visit Diagnoses Not on filedocumented in this encounter Care Teams Data Migration Lead Relationship Specialty Start Date End Date Marlin Contreras MD PCP - General 04/07/17 10/09/23 Bettie Cabezas MD [address] [place] [address] Resident Psychiatry 03/23/22 09/23/23 documented as of this encounter
--- OUTSIDE RECORDS SUMMARY | 2024-03-25 19:35 | XMS_ITS | Encounter Summary ---
Author Organization [facility] Healthcare Address [address] [place] [address] Care Team Providers Care Corn Grower Name Role Phone Marlin Contreras MD Primary Care Provider [phone] Bettie Cabezas MD Unavailable [phone] Reason for Visit * Reason Onset Date Comments Appointment Reminder Call 09/02/2022 Encounter Details Date Type Department Care Team (Late st Contact Info) Description 09/02/2022 Telephone [facility]- Psychiatry Clinic [address] [facility] [address] [place] [address] Bettie Cabezas MD [facility] [address] [place] [address] Appointment Reminder Call Social History [...] often do you attend chur ch or adventist services? 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 Was visit by Zoom _X__ Yes or ___ No and was Link confirmed _X__ Yes or ___ NO? Was Hat And Cap Opener needed and/or Schedule? ___ Yes or __X_ No RIANA documented in this encounter Plan of Treatment Not on file documented as of this encounter Visit Diagnoses Not on filedocumented in this encounter Care Teams Corn Grower Relationship Specialty Start Date End Date Marlin Contreras MD PCP - General 04/07/17 10/09/23 Bettie Cabezas MD [address] [place] [address] Resident Psychiatry 03/23/22 09/23/23 documented as of this encounter
--- OUTSIDE RECORDS SUMMARY | 2024-03-25 19:35 | XMS_ITS | Encounter Summary ---
Author Organization [facility] Healthcare Address [address] [place] [address] Care Team Providers Care Senior Nurse Manager Name Role Phone Marlin Contreras MD Primary Care Provider [phone] Bettie Cabezas MD Unavailable [phone] Reason for Visit * Reason Onset Date Comments Follow-up 02/08/2023 Encounter Details Date Type Department Care Team (Late st Contact Info) Description 02/08/2023 Telephone [facility]- Psychiatry Clinic [address] 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 She has had increased [...] of lithium to try to avoid destabilization. ESSIONAL SHOPPER * Telephone Encounter - Riana Guidry - 02/08/2023 3:31 PM CST Patient would like to speak with you. She stated she have been more upset since the medication change. Pleas call. Riana Provider was smart webbed: Please contact Stephanie BARRAGAN 2000. ESSIONAL SHOPPER documented in this encounter Plan of Treatment Not on file documented as of this encounter Visit Diagnoses Not on filedocumented in this encounter Care Teams Senior Nurse Manager Relationship Specialty Start Date End Date Marlin Contreras MD PCP - General 04/07/17 10/09/23 Bettie Cabezas MD [facility] [address] [place] [address] Resident Psychiatry 03/23/22 09/23/23 documented as of this encounter
--- OUTSIDE RECORDS SUMMARY | 2024-03-25 19:35 | XMS_ITS | Encounter Summary ---
Author Organization [facility] Healthcare Address [address] [place] [address] Care Team Providers Care Neck Band Setter Name Role Phone Marlin Contreras MD Primary Care Provider [phone] Bettie Cabezas MD Unavailable [phone] Encounter Details Date Type Department Care Team (Late st Contact Info) Description 10/27/2022 3:00 PM CDT Office Visit [facility]- Psychiatry Clinic [address] [facility] [address] [place] [address] Bipolar affective disorder, remission status [...] 02/23/2022 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 Bettie Traore MD Hospital Admissions Clerk, PGY-3 documented in this encounter Plan of [...] documented as of this encounter Care Teams Neck Band Setter Relationship Specialty Start Date End Date Marlin Contreras MD PCP - General 04/07/17 10/09/23 Bettie Cabezas MD [address] [place] [address] Resident Psychiatry 03/23/22 09/23/23 documented as of this encounter
--- OUTSIDE RECORDS SUMMARY | 2024-03-25 19:35 | XMS_ITS | Encounter Summary ---
Author Organization [facility] Healthcare Address [address] [place] [address] Care Team Providers Care Senior Technical Architect Name Role Phone Marlin Contreras MD Primary Care Provider [phone] Bettie Cabezas MD Unavailable [phone] Reason for Visit * Reason Onset Date Comments Appointment Reminder Call 10/26/2022 Encounter Details Date Type Department Care Team (Late st Contact Info) Description 10/26/2022 Telephone [facility]- Psychiatry Clinic [address] 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
--- OUTSIDE RECORDS SUMMARY | 2024-03-25 19:35 | XMS_ITS | Encounter Summary ---
Author Organization [facility] Healthcare Address [address] [place] [address] Care Team Providers Care Entry Level Account Manager Name Role Phone Marlin Contreras MD Primary Care Provider [phone] Bettie Cabezas MD Unavailable Encounter Details Date Type Department Care Team (Late st Contact Info) Description 02/14/2023 Telephone [facility]- Psychiatry Clinic [address] [facility] [address] [facility] [address] [place] [address] Bettie Cabezas MD [address] [place], [place] [id number] Social History Tobacco Use Types Packs/Day Years [...] How often do you attend chur or bahai services? 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 Then in the future can consider down titration if indicated but with recent failure with stopping lithium would rather have her on a higher dose of lamictal. Patient was amenable, discussed se/r/b/a and will increase to 300mg daily of Lamictal. STORE MERCHANDISER documented in this encounter Plan of Treatment Not on file documented as of this encounter Visit Diagnoses Not on filedocumented in this encounter Care Teams Entry Level Account Manager Relationship Specialty Start Date End Date Marlin Contreras MD PCP - General 04/07/17 10/09/23 Bettie Cabezas MD [address] [place] [address] Resident Psychiatry 03/23/22 09/23/23 documented as of this encounter
--- OUTSIDE RECORDS SUMMARY | 2024-03-25 19:35 | XMS_ITS | Encounter Summary ---
Author Organization [facility] Healthcare Address [address] [place] [address] Care Team Providers Care Heating Element Winder Name Role Phone Marlin Contreras MD Primary Care Provider [phone] Bettie Cabezas MD Unavailable [phone] Encounter Details Date Type Department Care Team (Late st Contact Info) Description 12/20/2022 Orders Only [facility]- Psychiatry Clinic [address] [facility] [address] [facility] [address] [place] [address] Bettie Cabezas MD [address] [place] [address] Social History Tobacco Use Types [...] How often do you attend chur or holiness services? 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
--- OUTSIDE RECORDS SUMMARY | 2024-03-25 19:35 | XMS_ITS | Encounter Summary ---
Author Organization [facility] Healthcare Address [address] [place] [address] Care Team Providers Care Machine Iii Coremaker Name Role Phone Marlin Contreras MD Primary Care Provider [phone] Bettie Cabezas MD Unavailable [phone] Encounter Details Date Type Department Care Team (Late st Contact Info) Description 02/03/2023 3:00 PM EVENT STAFF MEMBER Telemedicine [facility]- Psychiatry Clinic [address] [facility] [address] [facility] [address] [place] [address] Bipolar affective disorder, remission status [...] any clubs o r organizations such as gnosticist groups, unions, fraternal or athletic groups, or [...] 1 02/23/2022 [facility] Questionnaire Answer Date [...] on file Legal Sex Female 12:29 PM EVENT STAFF MEMBER Gender Identity Not on file Sexual Orientation [...] 2000. She is presenting to the [facility] for a follow-up appointment. She was last seen on 01/18/2023. This was a telemedicine visit with Stephanie Coates alone which took place via real-time video connection. During the visit, I was located at home and the patient was located at home in the [facility]. The patient visit started at 3:00pm and [...] to be reliable. HPI: Patient saw her stacker operator the day after she was seen by [...] rash to her arms and legs. Her stacker operator was contacted and did not think the rash was due to Lamictal. There is no itching, burning, or fever. She will see her stacker operator in person tomorrow. Mood has been [...] tablet (200 mg total) bymouth daily Ms. Coates is a 21 year [...] medication list is more manageable after stopping [place]. Plan: 1. Pharmacotherapy: -continue Latuda 80mg nightly [...] records for this encounter. Bettie Traore MD Push Button Switch Assembler, PGY-4 T STAFF MEMBER T STAFF MEMBER T STAFF MEMBER documented in this encounter Plan of Treatment [...] documented as of this encounter Care Teams Machine Iii Coremaker Relationship Specialty Start Date End Date Marlin Contreras MD PCP - General 04/07/17 10/09/23 Bettie Cabezas MD [address] [place] [address] Resident Psychiatry 03/23/22 09/23/23 documented as of this encounter
--- OUTSIDE RECORDS SUMMARY | 2024-03-25 19:35 | XMS_ITS | Encounter Summary ---
Author Organization [facility] Healthcare Address [address] [place] [address] Care Team Providers Care Wood Processing Worker Name Role Phone Marlin Contreras MD Primary Care Provider [phone] Bettie Cabezas MD Unavailable [phone] Encounter Details Date Type Department Care Team (Late st Contact Info) Description 02/14/2023 Orders Only [facility]- Psychiatry Clinic [address] [facility] [address] [facility] [address] [place] [address] Bettie Cabezas MD [address] [place] [address] Social History Tobacco Use Types [...] staff should administer the PHQ-9) 1 02/23/2022 [facility] of Occupat ionwy Health - Occupational [...] on file 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 S ROLLER documented in this encounter Plan of Treatment Not on file documented as of this encounter Visit Diagnoses Not on filedocumented in this encounter Care Teams Wood Processing Worker Relationship Specialty Start Date End Date Marlin Contreras MD PCP - General 04/07/17 10/09/23 Bettie Cabezas MD [address] [place] [address] Resident Psychiatry 03/23/22 09/23/23 documented as of this encounter
--- OUTSIDE RECORDS SUMMARY | 2024-03-25 19:35 | XMS_ITS | Encounter Summary ---
Author Organization [facility] Healthcare Address [address] [place] [address] Care Team Providers Care Photographer News Name Role Phone Marlin Contreras MD Primary Care Provider [phone] Bettie Cabezas MD Unavailable [phone] Encounter Details Date Type Department Care Team (Late st Contact Info) Description 09/22/2022 12:45 PM CDT Telemedicine [facility]- Psychiatry Clinic [address] [facility] [address] [place] [address] Bettie Cabezas MD [address] [place] [address] Bipolar disorder, current episode depressed, [...] 1 02/23/2022 [facility] of Occupat ionut Health - Occupational Stress Questionnaire Answer Date [...] on file 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 She is [facility] Psych[facility] for a follow-up appointment. She was last seen on 09/03/2022. This was a telemedicine visit with Stephanie Coates alone which took place via zoom. During the visit, I was located at home and the patient was located at home in the [facility]. The patient visit started at 12:45 and [...] She has started working out with a management trainer and being more conscious about what she [...] records for this encounter. Bettie Traore MD Parking Manager, PGY-3 documented in this encounter Plan of [...] documented as of this encounter Care Teams Photographer News Relationship Specialty Start Date End Date Marlin Contreras MD PCP - General 04/07/17 10/09/23 Bettie Cabezas MD [facility] [address] [facility] [address] [place] [address] Resident Psychiatry 03/23/22 09/23/23 documented as of this encounter
--- OUTSIDE RECORDS SUMMARY | 2024-03-25 19:35 | XMS_ITS | Encounter Summary ---
Author Organization [facility] Healthcare Address [address] [place] [address] Care Team Providers Care Teller Supervisor Name Role Phone Marlin Contreras MD Primary Care Provider Bettie Cabezas MD Unavailable [phone] Reason for Visit * Reason Onset Date Comments NEED AN APPOINTMENT 01/19/2023 Encounter Details Date Type Department Care Team (Late st Contact Info) Description 01/19/2023 Telephone [facility]- Psychiatry Clinic [address] [facility] [address] [place] [address] Bettie Cabezas MD [address] [place] [address] NEED AN APPOINTMENT Social History [...] 1 02/23/2022 [facility] [place] of Occupat ional Health - Occupational Stress [...] on file 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 Gender Identity Not on file Sexual Orientation Not on file documented as of this encounter Miscellaneous Notes * Telephone Encounter - Riana Guidry - 01/19/2023 1:34 PM CDT PER AVS: Will contact patient to schedule follow up documented in this encounter Plan of Treatment Not on file documented as of this encounter Visit Diagnoses Not on filedocumented in this encounter Care Teams Teller Supervisor Relationship Specialty Start Date End Date Marlin Contreras MD PCP - General 04/07/17 10/09/23 Bettie Cabezas MD [address] [place] [address] Resident Psychiatry 03/23/22 09/23/23 documented as of this encounter
--- OUTSIDE RECORDS SUMMARY | 2024-03-25 19:35 | XMS_ITS | Encounter Summary ---
Author Organization [facility] Healthcare Address [address] [place] [address] Care Team Providers Care Manual Winder Name Role Phone Marlin Contreras MD Primary Care Provider [phone] Bettie Cabezas MD Unavailable [phone] Encounter Details Date Type Department Care Team (Late st Contact Info) Description 09/03/2022 3:15 PM CDT Telemedicine [facility]- Psychiatry Clinic [address] [facility] [address] [facility] [address] [place] [address] Bettie Cabezas MD [address] [place] [address] Bipolar disorder, current episode depressed, [...] often do you attend chur ch or spiritism services? Never 02/23/2022 Do you belong to [...] 02/23/2022 [facility] of Occupat ionvt Health - Occupational Stress Questionnaire Answer Date [...] on file Legal Sex Female 12:29 PM RN LICENSED PRACTICAL Gender Identity Not on file Sexual Orientation [...] of 2000. She is presenting to the [facility] Psychiatry Clinic for a follow-up appointment. She was last seen on 07/02/2022. This was a telemedicine visit with Stephanie Coates alone which took place via zoom. During the visit, I was located at home and the patient was located at home in the state of [place]. The patient visit started at 3:15 and [...] depressive symptoms leading to voluntary admission to [facility] from 08/23-08/27/2022. She was started on Prozac [...] records for this encounter. Bettie Traore MD Heating And Refrigeration Inspector, PGY-3 documented in this encounter Plan of [...] documented as of this encounter Care Teams Manual Winder Relationship Specialty Start Date End Date Marlin Contreras MD PCP - General 04/07/17 10/09/23 Bettie Cabezas MD [address] [place] [address] Resident Psychiatry 03/23/22 09/23/23 documented as of this encounter
--- OUTSIDE RECORDS SUMMARY | 2024-03-25 19:35 | XMS_ITS | Encounter Summary ---
Author Organization [facility] Healthcare Address [address] [place] [address] Care Team Providers Care Inside Sales Specialist Name Role Phone Marlin Contreras MD Primary Care Provider [phone] Bettie Cabezas MD Unavailable [phone] Encounter Details Date Type Department Care Team (Late st Contact Info) Description 02/22/2023 3:00 PM SCREEN MACHINE OPERATOR Telemedicine [facility] [address] [facility] [address] [facility] [address] [place] [address] Bipolar affective disorder, remission status [...] PHQ-9) 1 02/23/2022 [facility] Questionnaire Answer Date Recorded [...] on file 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 female with a date of of 2000. She is presenting to the [facility] Psychiatry Clinic for a follow-up appointment. She was last seen on 01/18/2023. This was a telemedicine visit with Stephanie Coates alone which took place via real-time video connection. During the visit, I was located at home and the patient was located at home in the state [facility]. The patient visit started at 3:00pm [...] medication list is more manageable after stopping [place]. Plan: 1. Pharmacotherapy: -continue Latuda 80mg nightly [...] records for this encounter. Bettie Traore MD Logging Equipment Operator, PGY-4 EN MACHINE OPERATOR documented in this encounter Plan of Treatment Not on file documented as of this encounter Visit Diagnoses Diagnosis Bipolar affective disorder, remission status unspecified (HCC)- Primary documented in this encounter Care Teams Inside Sales Specialist Relationship Specialty Start Date End Date Mralin Contreras MD PCP - General 04/07/17 10/09/23 Bettie Cabezas MD [address] [place] [address] Resident Psychiatry 03/23/22 09/23/23 documented as of this encounter
--- OUTSIDE RECORDS SUMMARY | 2024-03-25 19:35 | XMS_ITS | Encounter Summary ---
Author Organization [facility] Healthcare Address [address] [place] [address] Care Team Providers Care Coastal/Harbor Defense Officer Name Role Phone Marlin Contreras MD Primary Care Provider [phone] Bettie Cabezas MD Unavailable [phone] Encounter Details Date Type Department Care Team (Latest Contact Info) Description 12/20/2022 Orders Only Psychiatry Bettie Cabezas MD [address] [place] [address] Social History Tobacco Use Types Packs/Day Years [...] staff should administer the PHQ-9) 1 02/23/2022 [facility] - Occupational Stress Questionnaire Answer Date [...] on file Legal Sex Female 12:29 PM SLEEVER Gender Identity Not on file Sexual Orientation Not on file documented as of this encounter Plan of Treatment Not on file documented as of this encounter Visit Diagnoses Not on filedocumented in this encounter Care Teams Coastal/Harbor Defense Officer Relationship Specialty Start Date End Date Marlin Contreras MD PCP - General 04/07/17 10/09/23 Bettie Cabezas MD [address] [place] [address] Resident Psychiatry 03/23/22 09/23/23 documented as of this encounter
--- OUTSIDE RECORDS SUMMARY | 2024-03-25 19:35 | XMS_ITS | Encounter Summary ---
Author Organization [facility] Healthcare Address [address] [place] [address] Care Team Providers Care Accounting Associate Name Role Phone Marlin Contreras MD Primary Care Provider [phone] Bettie Cabezas MD Unavailable Reason for Visit * Reason Onset Date Comments Scheduling Appointments 02/14/2023 Encounter Details Date Type Department Care Team (Late st Contact Info) Description 02/14/2023 Telephone [facility]- Psychiatry Clinic [address] [facility] [address] [place] [address] Bettie Cabezas MD [facility] [address] [place] [address] Scheduling Appointments Social History Tobacco [...] How often do you attend chur or oriental orthodox services? 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 Riana ER EXPEDITOR AND DRIER * Telephone Encounter - Riana Guidry - 02/14/2023 12:58 PM CST ----- Message from Bettie Traore MD sent at 02/14/2023 10:29 AM PRIMER EXPEDITOR AND DRIER ----- Regarding: Reschedule Hi! Can we reschedule patient's zoom from today to next Tuesday at 3pm over zoom? Thank you! ER EXPEDITOR AND DRIER documented in this encounter Plan of Treatment Not on file documented as of this encounter Visit Diagnoses Not on filedocumented in this encounter Care Teams Accounting Associate Relationship Specialty Start Date End Date Marlin Contreras MD PCP - General 04/07/17 10/09/23 Bettie Cabezas MD [address] [place] [address] Resident Psychiatry 03/23/22 09/23/23 documented as of this encounter
--- OUTSIDE RECORDS SUMMARY | 2024-03-25 19:36 | XMS_ITS | Encounter Summary ---
Author Organization [facility] Healthcare Address [address] [place] [address] Care Team Providers Care Sand Molder Name Role Phone Marlin Contreras MD Primary Care Provider Reason for Visit * Reason Comments Mental Health Problem * Auth/Cert Specialty Diagnoses / Procedures Referred By Contac t Referred To Contact Diagnoses Eladio (HCC) Procedures na Referral ID Status Reason Start Date Expiration Date Visits Re quested Visits Authorized [id number] 1 1 Encounter Details Date Type Department Care Team (Latest Contact Info) Description 02/01/2022 10:22 AM SPRING REPAIRER HELPER HAND - 02/16/2022 3:25 PM SPRING REPAIRER HELPER HAND Hospital Encounter [facility] [address] [place] [address] Prakash Baumann MD [address] [place] [address] Nina Zelaya MD [address] [place] [address] Simi Rodriguez MD [address] [place] [address] Don Tarango MD [address] [place] [address] Psychosis, unspecified psychosis type (HCC) (Primary Dx) [...] declined 02/02/2022 How often do you attend uatsdin or buddhist serv ices? Patient declined 02/02/2022 Do you belong to any clubs o r organizations such as uatsdin groups, unions, fraternal or athletic groups, or [...] medical care, and heating? Patient declined 02/02/2022 [employer] [facility] [employer] ional Health - Occupational Stress [...] slept in a care home (including now)? Patient refused 02/02/2022 Comments Unknown Sex and Gender Information Value Date Recorded Sex Assigned at Not on file Legal Sex Female 12:29 PM SPRING REPAIRER HELPER HAND Gender Identity Not on file Sexual Orientation Not on file documented as of this encounter Last Filed Vital Signs Vital Sign Reading Time Taken Comments Blood Pressure 116/69 02/16/2022 8:36 AM SPRING REPAIRER HELPER HAND Pulse 120 02/16/2022 8:36 AM SPRING REPAIRER HELPER HAND Temperature 36.4 ??C (97.5 ??F) 02/16/2022 8:36 AM CS T Respiratory Rate 18 02/16/2022 8:36 AM SPRING REPAIRER HELPER HAND Oxygen Saturation 99% 02/16/2022 8:36 AM SPRING REPAIRER HELPER HAND Inhaled Oxygen Concentration - - Weight 55.8 kg (123 lb) 02/01/2022 8:50 PM SPRING REPAIRER HELPER HAND Height 162.6 cm (5' 4 ) 02/01/2022 8:50 PM SPRING REPAIRER HELPER HAND Body Mass Index 21.11 02/01/2022 8:50 PM SPRING REPAIRER HELPER HAND documented in this encounter Discharge Summaries * Jeri Cooper MD - 02/15/2022 10:41 PM CST Inpatient Discharge Summary BRIEF OVERVIEW Admitting Provider: Prakash Baumann MD Discharge Provider: Simi Rodriguez MD Primary Care Physician at Discharge: Marlin Contreras MD [phone] Admission Date: 02/01/2022 Discharge Date: 02/16/22 Admission Location: [facility] Hospital Problems/Diagnoses: Principal Problem: Bipolar affective disorder, current episode manic with psychotic symptoms (CMS/HCC) ([facility]) Active Problems: Cannabis dependence ([facility]) Routine general medical examination at a health care facility Resolved Problems: No resolved hospital problems. DETAILS OF HOSPITAL STAY Presenting Problem/History of Present Illness: Manic episode, believing she was in a relationship with [place] Hospital Course: PRIMARY DIAGNOSIS - Bipolar affective disorder, current episode manic with psychotic symptoms (CMS/HCC) ([facility]) Stephanie Coates is a 21 year old with a PMH of MDD, JOHN, ADHD who was admitted for a manic episode. She adittional had psychotic symptoms and believed that she was in a relationship with [facility] andmeño Williamson was a relative (father, [...] with a Psychiatrist on March [address] [facility]. Return to the hospital if you find [...] Time Provider Department Center 03/05/2022 12:30 PM [facility] PSYCH RESIDENTS [facility] 03/05/2022 1:45 PM [facility] NURSE INJECTIONS [facility] Cosigned by Simi Rodriguez MD at 02/17/2022 1:28 PM SPRING REPAIRER HELPER HAND NG REPAIRER HELPER HAND NG REPAIRER HELPER HAND Associated attestation - Simi Rodriguez MD - 02/17/2022 1:28 PM SPRING REPAIRER HELPER HAND I have seen and examined the patient on 02/16/2022. I agree with the findings and plan of care as documented in the resident's/fellow's note. and as discussed with the resident/fellow.. documented in this encounter Discharge Instructions * Discharge Instructions* Jeri Cooper MD - 02/15/2022 10:47 PM SPRING REPAIRER HELPER HAND You were seen at the [facility]. Here, you were treated for your Bipolar I Disorder, manic episode. Your current medication regimen is Aristada injection every 30 days with your next dose being 03/05/22, Thorazine 100mg TID, Trazodone 100mg every night, and nicotine patches for smoking cessation. Please take all medications as proscribed and follow-up with a Psychiatrist on March [address] [facility]. Return to the hospital if you find that you cannot sleep for many days, have wide moodswings (feeling consistently happy or very depressed), have thoughts of hurting yourself or other, or if you develop any new symptoms that concern you. NG REPAIRER HELPER HAND documented in this encounter Medications at Time [...] current episode manic with psychotic symptoms (CMS/HCC) ([facility]) * Bipolar affective disorder, current episode manic with psychotic symptoms (CMS/HCC) ([facility]) Assessment & Plan Stephanie is currently experiencing a manic episode. She has been diagnosed with MDD, JOHN, ADHD [facility] and was medicated for these conditions. With [...] Adult Diet Regular; Deliver tray to nursing, Labeling Associate check DVT Prophylaxis: None (ambulating TID+) Dispo: Anticipate today ~3pm Jeri Cooper MD PGY-1 Business Development Intern 02/16/2022 3:17 PM Cosigned by Simi Rodriguez MD at 02/17/2022 12:31 PM SPRING REPAIRER HELPER HAND NG REPAIRER HELPER HAND NG REPAIRER HELPER HAND Associated attestation - Simi Rodriguez MD - 02/17/2022 12:31 PM SPRING REPAIRER HELPER HAND I have seen and examined the patient [...] follow up scheduled with psychiatrist, at the [facility] on 03/05. Patient will receivesocial support from family. Patient was agreeable with discharge plans. Patient's family member agreed with discharge plans. Prior to discharge, Patient denied thoughts of harming self or others. Social work services are terminated at this time. Jamila Ochoa LMSW NG REPAIRER HELPER HAND * Jeri Cooper MD - 02/15/2022 9:45 [...] current episode manic with psychotic symptoms (CMS/HCC) ([facility]) * Bipolar affective disorder, current episode manic with psychotic symptoms (CMS/HCC) ([facility]) Assessment & Plan Stephanie is currently experiencing a manic episode. She has been diagnosed with MDD, JOHN, [facility] and was medicated for these conditions. With [...] Adult Diet Regular; Deliver tray to nursing, Labeling Associate check DVT Prophylaxis: None (ambulating TID+) Dispo: Anticipate tomorrow 3pm Jeri Cooper MD PGY-1 Business Development Intern 02/15/2022 10:40 PM Cosigned by Simi Rodriguez MD at 02/16/2022 8:19 AM SPRING REPAIRER HELPER HAND NG REPAIRER HELPER HAND NG REPAIRER HELPER HAND Associated attestation - Simi Rodriguez MD - 02/16/2022 8:19 AM SPRING REPAIRER HELPER HAND I have seen and examined the patient [...] emergency contact information related to inpatient stay: [facility]: [phone] (ask for Charge Nurse) Primary Physician, other healthcare professional, or site for follow up care ([facility] has specific follow up appointments): PCP: Marlin Contreras MD These instructions have been provided to and reviewed with the patient/pharmacist critical care prior to discharge: Yes Patrica Wallis CTRS [...] TURNER was in milieu conducting assessments from [id number]. Pt was intrusive and demanding with peers and staff. Pt was observed by this TURNER, arguing and cursing at the Traffic Officer. Pt is on phone restrictions and Traffic Officer prevented her from using the phone. Pt began calling Traffic Officer a murderer and pointed at staff in [...] This was able to be verified. This [facility] actively listened to the pt's concerns about having Covid. Pt reports that she feels she has symptoms, stating she has had a headache since her court date and that she isfeeling congested today. She asked this NC- to ask her nurse to get her a Covid test. This [facility] discussed this with her nurse. Radha Kang [facility] NG REPAIRER HELPER HAND * Marty Valencia MD - 02/14/2022 8:31 AM CST Psychiatry Attending Progress Note Interval History: No overnight events or PRNs. Has been needy and intrusive with other pts. Made statements that she is the real Stephanie Kaur. Observed on unit to be argumentative with community association manager, cursing, goingon about Perfecto Williamson. Did take [...] plan. No med changes over the weekend. NG REPAIRER HELPER HAND * Marty Valencia MD - 02/13/2022 11:56 [...] oral Nightly PRN 100 mg at 02/12/22 2688 Medication Compliance: Compliant Physical Exam: Vitals: 02/13/22 [...] day. Continue current meds and tx plan. NG REPAIRER HELPER HAND * Simi Rodriguez MD - 02/12/2022 12:21 [...] participation in psychotherapeutic groups and treatment planning. NG REPAIRER HELPER HAND * Jamila Ochoa MSW - 02/12/2022 9:13 [...] fathers home at discharge. Primary contact: Colten [phone] (Father) Follow up: Pt follows with Cuca Peoples NP (family would like for her to get a new psychiatrist.) Insurance: [employer] Transportation: Family/Friends, Own Car Resources/referrals: None at this time ADD: TBD, pending clinical course. Pt is on a 21 day involuntary hold. Jamila Ochoa LMSW NG REPAIRER HELPER HAND * Simi Rodriguez MD - 02/11/2022 4:09 [...] current episode manic with psychotic symptoms (CMS/HCC) ([facility]) Assessment: history of depressive episodes in the [...] participation in psychotherapeutic groups and treatment planning. NG REPAIRER HELPER HAND * Jamila Ochoa MSW - 02/11/2022 10:41 AM CST Patient is now on a 21 day involuntary hold. SW gave pt the paperwork and pt verbalized understanding. Jamila Ochoa LMSW NG REPAIRER HELPER HAND * Simi Rodriguez MD - 02/10/2022 5:44 PM CST Spoke with mother Lu and Father Colten (separately) to inform them of the court granting the 21 day petition. Both expressed relief and gratitude. Will continue to update and involve them in discharge planning NG REPAIRER HELPER HAND * Simi Rodriguez MD - 02/10/2022 4:42 [...] participation in psychotherapeutic groups and treatment planning. NG REPAIRER HELPER HAND * Simi Rodriguez MD - 02/09/2022 4:44 PM CST Psychiatry Attending Progress Note Interval History: Chart reviewed and patient seen. Called mother Lu at [phone] she will visit at 10:30am tomorrow and [...] participation in psychotherapeutic groups and treatment planning. NG REPAIRER HELPER HAND * Jamila Ochoa MSW - 02/09/2022 1:19 [...] fathers home at discharge. Primary contact: Colten [phone] (Father) Follow up: Pt follows with Cuca Peoples NP (family would like for her to get a new psychiatrist.) Insurance: [employer] Transportation: Family/Friends, Own Car Resources/referrals: None at this time ADD: TBD, pending clinical course. Pt has a pending court hearing for tomorrow at 4PM. This is a 21day involuntary hold hearing. Jamila Ochoa LMSW NG REPAIRER HELPER HAND * Simi Rodriguez MD - 02/08/2022 6:37 PM CST Psychiatry Attending Progress Note Interval History: Chart reviewed and patient seen. She is on a 96 hour hold. Spoke with mother Lu [phone] and father Colten at [phone]. Both expressed concern for patient possibly being [...] participation in psychotherapeutic groups and treatment planning. NG REPAIRER HELPER HAND * Patrica Elena, PATTERN PAINTER - 02/08/2022 1:14 PM CST Weekly Progress [...] skills, and relief from symptoms. JESSICA Bradford NG REPAIRER HELPER HAND * Biju Herrera MD - 02/07/2022 11:46 [...] oral Nightly PRN 100 mg at 02/05/22 6617 Medication Compliance: Compliant Physical Exam: Vitals: 02/07/22 [...] current episode manic with psychotic symptoms (CMS/HCC) ([facility]) Assessment: history of depressive episodes in the past and currently having a manic episode. Describes desire for bipolar medication but also reports trial of lithium made me zothaniaie like and thatglen wants to become (so depakote is not an option). She is amenable to try abilify Plan: -aristada -increase thorazine to 100mg TID for psychosis/anxiety while inpatient and aristada reaches therapeutic level NG REPAIRER HELPER HAND * Biju Herrera MD - 02/06/2022 11:56 AM CST Psychiatry Attending Progress Note Interval History: Demanding and intrusive with staff. Tells me she has to go to court on 02/26 for assaulting a commander police reserves after she reported finding a missing person. She is very upset because perfecto Williamson is her grandfather which is preventing her from going to college, and believes she is Stephanie Olivera and to the flatwork feeder Aiden Olivera. 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 It's [...] psychosis/anxiety while inpatient and aristada reaches therapeuticlevel NG REPAIRER HELPER HAND * Simi Rodriguez MD - 02/05/2022 3:24 PM CST Psychiatry Attending Progress Note Interval History: Chart reviewed and patient seen. She is admitted on a 96 hour hold which expires 02/08/22 at 2048. She is medication compliant, but delusions continue with poor insight. She is focused on wanting to be discharged to go to [facility] show and maintains they are in [...] participation in psychotherapeutic groups and treatment planning. NG REPAIRER HELPER HAND * Jamila Ochoa MSW - 02/05/2022 9:36 [...] fathers home at discharge. Primary contact: Colten [phone] (Father) Follow up: Pt follows with Cuca Peoples NP (family would like for her to get a new psychiatrist.) Insurance: [employer] Transportation: Family/Friends, Own Car Resources/referrals: None at this time ADD: TBD, pending clinical course. 96hr expires on Tuesday. Jamila Ochoa LMSW NG REPAIRER HELPER HAND * Simi Rodriguez MD - 02/04/2022 3:38 [...] current episode manic with psychotic symptoms (CMS/HCC) ([facility]) Assessment: history of depressive episodes in the [...] participation in psychotherapeutic groups and treatment planning. NG REPAIRER HELPER HAND * Simi Rodriguez MD - 02/03/2022 1:22 [...] participation in psychotherapeutic groups and treatment planning. NG REPAIRER HELPER HAND * Luisa Magana, PATTERN PAINTER - 02/02/2022 4:05 PM CST Activity Therapy [...] stupid? Pt explained that she called the desk assistant, and they brought her here. Pt has a 26 year old brother that she doesn't see often. 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 Pt enjoys helping others. When stressed she [...] Activities of Daily Living Deficits in Functional [place] Poor stress management skills Musical Interests Listens to Music Rap Recommended Activity Therapy Recommended Activity Therapy Plan Appropriate for group setting NG REPAIRER HELPER HAND * Jamila Ochoa MSW - 02/02/2022 1:41 PM CST Psychiatry Social Work Assessment Clinical Dx: Eladio Past Psychiatric History: Past Psychiatric History Previous Self Harm/Suicidal Attempts: (MICHAEL) Patient currently seeing an outpatient psychiatrist? : (MICHAEL) Current outpatient correctional casework specialist? : (MICHAEL) Mental Health Onset: Unknown Previous Psychiatric Admission: No (02/02/22 2694) Patient Information: Patient Information Marital Status: Not [...] (Comment) Transportation Comment: MICHAEL Use of time: [facility] Opportunity to Socialize: [facility] (02/02/221333) Reason for Current Hospitalization: Precipitating [...] had aggressive behavior such as assaulting a commander police reserves and as a result was in long-term for 3 days and has charges filed against her. Her mother and friend suspected substance misuse of vyvanse at the time however, after going through her medication and refill history, her mother notesthat she was not misusing it (unless she was getting substances from the street). She was taken to [facility] on 01/22 and boarded [...] Information : Other (Comment) Comment: MICHAEL (02/02/22 5868) Support Systems and Spirituality: Support Systems and [...] Mental/Emotional Abuse? : Unable to answer (02/02/22 2216) Strengths, Assets, Liabilities and Stressors: Strengths, Assets, Liabilities, and Stressors Strengths (Must Choose Two): Unable to assess Patient Assets: Insured Does Pt have access to Employee Assistance Program: No Patient Barriers : Medication non-adherence Current Stressors: Non-compliance, Coping skills (02/02/22 3096) Social Determinants of Health Tobacco Use: Not [...] with Friends and Family: Patient refused Attends Baptism Services: Patient refused Active Member of Clubs [...] an outpatient psychiatrist? : (MICHAEL) Current outpatient correctional casework specialist? : (MICHAEL) Mental Health Onset: Unknown Previous Psychiatric Admission: No (02/02/221333) Problem/Goals: Problems/Goals Problems Identified by Social Work: Mental Health Short term goals: Stabilize and Discharge Patient Stated Goals: .... Assisted Goals: Medication Compliance Social Work Plan/Intervention: Stabilize, [...] Up: SW will schedule follow up (02/02/22 9316) Social Determinants of Health Tobacco Use: Not [...] with Friends and Family: Patient refused Attends Baptism Services: Patient refused Active Member of Clubs [...] appropriate level of care. Jamila Ochoa LMSW NG REPAIRER HELPER HAND documented in this encounter H&P Notes * Simi Rodriguez MD - 02/02/2022 1:39 PM CST Inpatient Psychiatric Attending Intake Assessment CURRENT DIAGNOSES: Principal Problem: Bipolar affective disorder, current episode manic with psychotic symptoms (CMS/HCC) (HCC) Active Problems: Cannabis dependence ([facility]) REASON FOR INPATIENT ADMISSION: psychosis and agitation [...] Admission Status: Involuntary GUARDIANSHIP: No POWER OF REMOTE SENSING TECHNOLOGIST ([facility] ONLY): SOURCE OF INFORMATION: EHR, patient, father Colten [phone] CHIEF COMPLAINT: Just the Perfecto Williamson stuff [...] scholarship, perhaps soccer?, to study nursing at [employer] but dropped out because it was too much since then she has taken some gen ed courses at [employer]. She works at [employer] and lives [place]. She has some insight into being [...] a medical card . Per ED psychiatric media sales consultant; she has been experiencing depressive episodes [...] had aggressive behavior such as assaulting a commander police reserves and as a result was in long-term for 3 days and has charges filed [...] reports her mother is a nurse at [employer], and this provides her insurance. Per medical student conversation with Father, it seems that he has noticed lots of impulsive purchases and bizarre thought content as well as poor grooming. Apparently she assaulted [place] police prior to beingbrought to the [...] get ) REVIEW OF SYSTEMS: Please see GENERATING STATION MECHANIC/MD Consult note PHYSICAL EXAMINATION: Vitals: 02/01/22 2050 BP: 109/55 Pulse: 94 Resp: 16 SpO2: 100% No intake/output data recorded. No intake/output data recorded. Please see GENERATING STATION MECHANIC/MD Consult note for additional details NEUROLOGICAL EXAMINATION: Please see GENERATING STATION MECHANIC/MD Consult MENTAL STATUS EXAMINATION: General Appearance and [...] participation in psychotherapeutic groups and treatment planning. NG REPAIRER HELPER HAND documented in this encounter Consult Notes * [...] agrees with it. ACC# Date Time Exam [id number] Apr 07, 2017 15:58:00 [id number] MR Knee without cont L EXAMINATION: MRI [...] MD, PHD on Apr 07 2017 4:45P [id number] CHARLTON MD, PHD LOUISA EMMANUEL M.D. FINAL REPORT The radiology attending physician has personally reviewed this study, and has reviewed and/or edited this written report and agrees with it. Attending: ORLIN EVANS Requesting: ORLIN EVANS Requesting Fax: Attending Fax: Attending ID: [id number] Requesting ID: [id number] Report To 1 ID: [id number] Report To 1 Name: , Report To 1 FAX: NextGen Order #: Assessment and plan: Routine general medical examination at a health care facility Assessment & Plan No active complaints or chronic medical conditions identified The rest of the plan is per the psych Service Bernarda Andrea MD 02/02/2022 3:25 PM NG REPAIRER HELPER HAND * Mayra Marie MD - 02/01/2022 12:37 PM CSTAssociated Order(s): IP CONSULT TO PSYCHIATRY PSYCHIATRY ED CONSULTATION REPORT Consultation Requested: Date: 02/01/2022 Time: 12pm Requesting Service: Emergency Department Attending Requesting Consultation: Dr. Baumann Reason for Consultation: delusions CURRENT PROBLEMS: Principal Problem: Eladio (HCC) SOURCE OF INFORMATION: The Patient, unreliable The Electronic Medical Record, Includes records available in [facility] Mother and best friend Sarah, seen in [...] had aggressive behavior such as assaulting a commander police reserves and as a result was in long-term for 3 days and has charges filed [...] agrees with it. ACC# Date Time Exam [id number] Apr 07, 2017 15:58:00 [id number] MR Knee without cont L EXAMINATION: MRI [...] MD, PHD on Apr 07 2017 4:45P [id number] CHARLTON MD, PHD LOUISA EMMANUEL M.D. FINAL REPORT The radiology attending physician has personally reviewed this study, and has reviewed and/or edited this written report and agrees with it. Attending: ORLIN EVANS Requesting: ORLIN EVANS Requesting Fax: Attending Fax: Attending ID: [id number] Requesting ID: [id number] Report To 1 ID: [id number] Report To 1 Name: , Report To [...] Recommendations: - Please admit patient INVOLUNTARY to [facility] or [facility] under Dr. Martinez with standard suicide/elopement/assault precautions - 96 hour paperwork completed, notarized, faxed to patient placement, and placed in chart - Discussed with ED team and psychiatry business analyst intern on-call - While boarding, please stop patient's [...] any questions or to request re-evaluation at [phone] - Should patient be admitted to a medical or surgical floor and psychiatric consultation assistanceis still needed please place a Psychiatry Consult order in [facility] and call the Inpatient Psychiatry Consult Service at [phone] Mayra Gonzalez MD Business Development Intern, PGY-2 For patients or family members viewing this note through RoomClip programs: This note was written as a [...] no longer be involved in your care. NG REPAIRER HELPER HAND NG REPAIRER HELPER HAND NG REPAIRER HELPER HAND documented in this encounter Nursing Notes * [...] and toe ring not taken on discharge. NG REPAIRER HELPER HAND * Chanel Bob, SAGAR - 02/16/2022 9:04 [...] Given Ativan prn for anxiety at 1440.. NG REPAIRER HELPER HAND NG REPAIRER HELPER HAND NG REPAIRER HELPER HAND * Gretta Rodriguez RN - 02/15/2022 10:50 [...] changes in behavior and maintain safe environment. NG REPAIRER HELPER HAND * Giovanny Benoit RN - 02/15/2022 12:19 [...] Will pass on the need to the manufacturing shift supervisor. NG REPAIRER HELPER HAND NG REPAIRER HELPER HAND NG REPAIRER HELPER HAND * Gretta Rodriguez RN - 02/14/2022 9:30 [...] came to the nursing station requested this business writer to come to her room. Upon [...] changes in behavior and maintain safe environment. NG REPAIRER HELPER HAND * Jose Conti RN - 02/14/2022 1:49 [...] no one wants to let her leave. Wound Care Physician re-educated patient on possible discharge and discussed [...] observed. Will continue to monitor and redirect. Woodlawn is on. NG REPAIRER HELPER HAND * Ashwini Lowry RN - 02/13/2022 8:39 [...] this time. Precautions and safety checks maintained. NG REPAIRER HELPER HAND NG REPAIRER HELPER HAND * Jose Conti RN - 02/13/2022 11:55 AM CST Reassessment of anxiety was done @0935. Ativan was effective. Patient states anxiety decreased to a0 on a scale of 1-10. Patient appears to be in a good and happy mood. NG REPAIRER HELPER HAND * Jose Conti RN - 02/13/2022 11:43 [...] distress is observed. Will continue to monitor. Woodlawn is on. NG REPAIRER HELPER HAND * Ashwini Lowry RN - 02/12/2022 11:06 [...] further complaints. Precautions and safety checks maintained. NG REPAIRER HELPER HAND NG REPAIRER HELPER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 500 mg 500 mg, oral, Every 2 hours PRN, indigestion, heartburn, Starting on Tue02/03/22 at 1651 Given 02/04/2022 1:15 PM SPRING REPAIRER HELPER HAND 500 mg Given 02/04/2022 9:28 AM SPRING REPAIRER HELPER HAND 500 mg Given 02/03/2022 11:54 PM SPRING REPAIRER HELPER HAND 500 mg calcium carbonate (TUMS) chewable tablet 500 mg 500 mg, oral, 3 times daily PRN, indigestion, heartburn, Starting on Tue02/04/22 at 1545 Given 02/04/2022 6:[address] 500 mg chlorproMAZINE (THORAZINE) tablet 100 mg 100 mg, oral, 3 times daily, First dose (after last modification) on Tue02/07/22 at 1600 Given 02/16/2022 3:03 PM SPRING REPAIRER HELPER HAND 100 mg Given 02/16/2022 8:37 AM SPRING REPAIRER HELPER HAND 100 mg Given 02/15/2022 9:24 PM SPRING REPAIRER HELPER HAND 100 mg chlorproMAZINE (THORAZINE) tablet 25 mg 25 mg, oral, Once, On Oanh 02/04/22 at 1115, For 1 dose Given 02/04/2022 10:57 AM SPRING REPAIRER HELPER HAND 25 mg chlorproMAZINE (THORAZINE) tablet 25 mg 25 mg, oral, Once, On Oanh 02/04/22 at 1445, For 1 dose Given 02/04/2022 2:47 PM SPRING REPAIRER HELPER HAND 25 mg chlorproMAZINE (THORAZINE) tablet 50 mg 50 mg, oral, 3 times daily, First dose (after last modification) on [facility] 02/06/22 at 1600 Given 02/07/2022 8:13 AM SPRING REPAIRER HELPER HAND 5 0 mg Given 02/06/2022 8:02 PM SPRING REPAIRER HELPER HAND 50 mg Given 02/06/2022 5:12 PM SPRING REPAIRER HELPER HAND 50 mg droperidoL (INAPSINE) injection 5 mg 5 mg, intramuscular, Administer over 5 Minutes, Every 6 hours PRN, other, severe agitation, Starting on Tue02/02/22 at 1336 Given 02/04/2022 12:42 AM SPRING REPAIRER HELPER HAND 5 mg Left Deltoid Given 02/02/2022 8:28 PM SPRING REPAIRER HELPER HAND 5 mg Ri ght Deltoid haloperidoL (HALDOL) tablet 5 mg 5 mg, oral, Every 4 hours PRN, agitation, Starting on Tue02/02/22 at 1337 Given 02/06/2022 9:44 PM SPRING REPAIRER HELPER HAND 5 mg Given 02/06/2022 1:18 PM SPRING REPAIRER HELPER HAND 5 mg Given 02/05/2022 9:22 PM SPRING REPAIRER HELPER HAND 5 mg hydrOXYzine (ATARAX) tablet 10 mg 10 mg, oral, Every 4 hours PRN, anxiety, Starting on Tue02/02/22 at 0921 Given 02/04/2022 8:29 AM SPRING REPAIRER HELPER HAND 10 mg Given 02/03/2022 11:54 PM SPRING REPAIRER HELPER HAND 10 mg Given 02/03/2022 5:40 PM SPRING REPAIRER HELPER HAND 10 mg lidocaine-prilocaine (EMLA) 2.5-2.5 % cream topical, Once, On Tue02/03/22 at 1300, For 1 dose, Apply to bilateral injection sites 20 minutes prior to initio and aristada injections, Apply to affected area: other, Indications: Administration of Local AnesthesiaIndications:Administration of Local Anesthesia Given 02/03/2022 1:45 PM SPRING REPAIRER HELPER HAND loperamide (IMODIUM) capsule 2 mg 2 mg, oral, 3 times daily PRN, diarrhea, Starting on Tue02/09/22 at 0930, Maximum recommended dose 16 mg/day Given 02/11/2022 3:14 AM SPRING REPAIRER HELPER HAND 2 mg Given 02/10/2022 9:10 PM SPRING REPAIRER HELPER HAND 2 mg Given 02/10/2022 4:26 PM SPRING REPAIRER HELPER HAND 2 mg loperamide (IMODIUM) capsule 2 mg [...] of 2 mg/minute Given 02/04/2022 12:42 AM SPRING REPAIRER HELPER HAND 2 mg Left Deltoid Given 02/02/2022 8:28 PM SPRING REPAIRER HELPER HAND 2 mg Ri ght Deltoid LORazepam (ATIVAN) tablet 0.5 mg 0.5 mg, oral, Every 4 hours PRN, anxiety, Starting on Tue02/15/22 at 1214 Given 02/16/2022 2:40 PM SPRING REPAIRER HELPER HAND 0.5 mg Given 02/16/2022 3:23 AM SPRING REPAIRER HELPER HAND 0.5 mg Given 02/15/2022 7:00 PM SPRING REPAIRER HELPER HAND 0.5 mg LORazepam (ATIVAN) tablet 1 mg 1 mg, oral, Every 4 hours PRN, anxiety, Starting on Tue02/08/22 at 1135 Given 02/15/2022 12:02 PM SPRING REPAIRER HELPER HAND 1 mg Given 02/14/2022 11:22 PM SPRING REPAIRER HELPER HAND 1 mg Given 02/14/2022 1:10 PM SPRING REPAIRER HELPER HAND 1 mg LORazepam (ATIVAN) tablet 2 mg 2 mg, oral, Once, On Tue02/03/22 at 1300, For 1 dose Given 02/03/2022 12:41 PM SPRING REPAIRER HELPER HAND 2 mg LORazepam (ATIVAN) tablet 2 mg 2 mg, oral, Every 4 hours PRN, anxiety, Starting on Oanh 02/04/22 at 0933 Given 02/07/2022 8:22 PM SPRING REPAIRER HELPER HAND 2 mg Given 02/07/2022 11:15 AM SPRING REPAIRER HELPER HAND 2 mg Given 02/06/2022 1:18 PM SPRING REPAIRER HELPER HAND 2 mg nicotine (NICODERM CQ) 14 mg patch 24 hour 1 patch 1 patch, transdermal, Administer over 24 Hours, Daily, First dose on Tue02/02/22 at 1215, Apply a new patch every 24 hours to a clean, dry, hairless site on the upper arm or hip. Rotate site. Medication Applied 02/16/2022 8:38 AM SPRING REPAIRER HELPER HAND 1 patch Left Arm Medication Applied 02/15/2022 8:02 AM SPRING REPAIRER HELPER HAND 1 patch Right Arm Medication Applied 02/14/2022 8:58 AM SPRING REPAIRER HELPER HAND 1 patch Left Arm nicotine (NICODERM CQ) 21 mg patch 24 hour 1 patch 1 patch, transdermal, Administer over 24 Hours, Daily, First dose on Tue02/01/22 at 1034, Apply a new patch every 24 hours to a clean, dry, hairless site on the upper arm or hip. Rotate site. Medication Applied 02/01/2022 3:41 PM SPRING REPAIRER HELPER HAND 1 patch Right Shoulder nicotine polacrilex (NICORETTE) gum 2 mg 2 mg, mouth/throat, Every 1 hour PRN, nicotine withdrawal symptoms, Starting on Tue02/01/22 at 2128, Instruct patients to chew into gum and then place between the cheek and gum to enhance absorption. Given 02/16/2022 1:03 PM SPRING REPAIRER HELPER HAND 2 mg Given 02/16/2022 8:39 AM SPRING REPAIRER HELPER HAND 2 mg Given 02/15/2022 8:07 AM SPRING REPAIRER HELPER HAND 2 mg OLANZapine (ZyPREXA ZYDIS) disintegrating tablet 10 mg 10 mg, oral, Every 6 hours PRN, agitation, Starting on Tue02/01/22 at 2128, Max dose 40 mg/24 hrs. Given 02/02/2022 12:05 PM SPRING REPAIRER HELPER HAND 10 mg Given 02/01/2022 10:39 PM SPRING REPAIRER HELPER HAND 10 mg OLANZapine (ZyPREXA) injection 10 mg 10 mg, intramuscular, Every 6 hours PRN, other, severe agitation clinically emergent, Starting on Tue02/01/22 at 2128, Max 30 mg/24 hours. Do not administer with IV or IM benzodiazepines. Reconstitute 10 mg vial with 2.1 mL SWFI. Resulting solution is ~5 mg/mL. Use immediately (within 1 hour) following reconstitution. Given 02/02/2022 1:00 PM SPRING REPAIRER HELPER HAND 10 mg Right Deltoid ondansetron ODT (ZOFRAN-ODT) disintegrating tablet 4 mg 4 mg, oral, Every 4 hours PRN, nausea, vomiting, Starting on Tue02/03/22 at 1650 Given 02/03/2022 4:57 PM SPRING REPAIRER HELPER HAND 4 mg risperiDONE (RisperDAL) tablet 1 mg 1 mg, oral, 2 times daily, First dose on Tue02/01/22 at 1456 Given 02/02/2022 8:17 AM SPRING REPAIRER HELPER HAND 1 mg Given 02/01/2022 9:42 PM SPRING REPAIRER HELPER HAND 1 mg Given 02/01/2022 3:43 PM SPRING REPAIRER HELPER HAND 1 mg sodium chloride (OCEAN) 0.65 % nasal spray 2 spray 2 spray, each nostril, Every 2 hours PRN, rhinitis, Starting on Tue02/09/22 at 0934 Given 02/15/2022 9:24 P M SPRING REPAIRER HELPER HAND 2 sprays Given 02/15/2022 4:21 AM SPRING REPAIRER HELPER HAND 2 sprays Given 02/14/2022 1:00 AM SPRING REPAIRER HELPER HAND 2 sprays traZODone (DESYREL) tablet 100 mg 100 mg, oral, Nightly PRN, sleep, Starting on Tue02/02/22 at 0921 Given 02/15/2022 12:31 AM SPRING REPAIRER HELPER HAND 100 mg Given 02/13/2022 11:13 PM SPRING REPAIRER HELPER HAND 100 mg Given 02/12/2022 11:56 PM SPRING REPAIRER HELPER HAND 100 mg documented in this encounter Active and Recently Administered Medications Times are shown in SPRING REPAIRER HELPER HAND. Scheduled Medication Order 02/14/2022 02/15/2022 02/16/2022 ARIPiprazole [...] Rodriguez RN) 0836 (Given - Provider: Chanel Bob RN)1440 (Given - Provider: Chanel Bob RN) [...] Reason: Other - Comment: duplicate order from [employer]) nicotine polacrilex (NICORETTE) gum 2 mg 2 [...] Bob RN)1439 (Not Given - Provider: Chanel Bob RN - Reason: Order parameters not met) [...] 02/01/2022 documented in this encounter Care Teams Sand Molder Relationship Specialty Start Date End Date Marlin Contreras MD PCP - General 04/07/17 10/09/23 documented as of this encounter
--- OUTSIDE RECORDS SUMMARY | 2024-03-25 19:36 | XMS_ITS | Encounter Summary ---
Author Organization [facility] Healthcare Address [address] [place] [address] Care Team Providers Care Quality Management Coordinator Name Role Phone Marlin Contreras MD Primary Care Provider [phone] Bettie Cabezas MD Unavailable [phone] Encounter Details Date Type Department Care Team (Latest Contact Info) Description 08/24/2022 12:41 PM CDT - 08/24/2022 11:59 PM CDT Hospital Encounter [facility] [address] [place] [address] Discharge Disposition: Discharge to home or self [...] the PHQ-9) 1 [facility]23[facility]20[facility] - Occupational Stress Questionnaire Answer Date [...] on file Legal Sex Female 12:29 PM SECURITY DIRECTOR Gender Identity Not on file Sexual Orientation [...] on filedocumented in this encounter Care Teams Quality Management Coordinator Relationship Specialty Start Date End Date Marlin Contreras MD PCP - General 04/07/17 10/09/23 Bettie Cabezas MD [address] [place] [address] Resident Psychiatry 03/23/22 09/23/23 documented as of this encounter
--- OUTSIDE RECORDS SUMMARY | 2024-03-25 19:36 | XMS_ITS | Encounter Summary ---
Author Organization [facility] Healthcare Address [address] [place] [address] Care Team Providers Care State Manager Name Role Phone Unknown, Notinfile Primary Care Provider Unavail able Encounter Details Date Type Department Care Team (Latest Contact Info) Description 11/13/2016 11:40 AM CDT - 11/13/2016 11:59 PM CDT Hospital Encounter [facility] OP INTERIM [phone] [place] [address] [place] [address] Discharge Disposition: Discharge to home or self care Social History Tobacco Use Types Packs/Day Years Used Date Smoking Tobacco: Never Comments Unknown Sex and Gender Information Value Date Recorded Sex Assigned at Not on file Legal Sex Female 12:29 PM DIRECTOR OF ANESTHESIA SERVICES Gender Identity Not on file Sexual Orientation [...] M.D. FINAL REPORT ACC# ??Date Time ??Exam [id number] Nov 13, 2016 12:00:00 [id number] Tibia Fibula 2 views R [id number] Nov 13, 2016 12:00:00 72655 Tibia Fibula 2 views L EXAMINATION: ? [...] ALVARENGA M.D. on Nov 13 2016 12:45P [id number] ALVARENGA M.D. FINAL REPORT Attending: ??MECHELLE, ??ALEC Requesting: ??MECHELLE, ??ALEC Requesting Fax: ?? Attending Fax: ?? Attending ID: ??[id number] Requesting ID: ??[id number] Report To 1 ID: ??[id number] ? Report To 1 Name: ??, ?? Report To 1 FAX: ?? NextGen Order #: ?? Procedure Note Miscellaneous, Not In File - 01/22/2017 ALBERTO ALVARENGA M.D. FINAL REPORT ACC# Date Time Exam [id number] Nov 13, 2016 12:00:00 91837 Tibia Fibula 2 views R [id number] Nov 13, 2016 12:00:00 [id number] Tibia Fibula 2 views L EXAMINATION: 1. [...] ALVARENGA M.D. on Nov 13 2016 12:45P [id number] RUBIN, M.D. FINAL REPORT Attending: ALEC OLIVARES Requesting: ALEC OLIVARES Requesting Fax: Attending Fax: Attending ID: [id number] Requesting ID: [id number] Report To 1 ID: [id number] Report To 1 Name: , Report To 1 FAX: NextGen Order #: Alec Olivares MD IMG XR PROCEDURES Edited R esult - Final * XR Tibia Fibula 2 VW (11/13/2016 5:00 PM CDT) Anatomical Region Laterality Modality N/A Radiographic María ging 11/13/2016 5:00 PM CDT Narrative 11/13/2016 5:00 PM CDT ALBERTO ALVARENGA M.D. FINAL REPORT ACC# ??Date Time ??Exam [id number] Nov 13, 2016 12:00:00 [id number] Tibia Fibula 2 views R [id number] Nov 13, 2016 12:00:00 65743 Tibia Fibula 2 views L EXAMINATION: ? [...] ALVARENGA M.D. on Nov 13 2016 12:45P [id number] ALVARENGA M.D. FINAL REPORT Attending: ??MECHELLE, ??ALEC Requesting: ??MECHELLE, ??ALEC Requesting Fax: ?? Attending Fax: ?? Attending ID: ??[id number] Requesting ID: ??[id number] Report To 1 ID: ??[id number] ? Report To 1 Name: ??, ?? Report To 1 FAX: ?? NextGen Order #: ?? Procedure Note Miscellaneous, Not In File - 01/22/2017 ALBERTO ALVARENGA M.D. FINAL REPORT ACC# Date Time Exam [id number] Nov 13, 2016 12:00:00 [id number] Tibia Fibula 2 views R [id number] Nov 13, 2016 12:00:00 [id number] Tibia Fibula 2 views L EXAMINATION: 1. [...] ALVARENGA M.D. on Nov 13 2016 12:45P [id number] ALVARENGA M.D. FINAL REPORT Attending: ALEC OLIVARES Requesting: ALEC OLIVARES Requesting Fax: Attending Fax: Attending ID: [id number] Requesting ID: [id number] Report To 1 ID: [id number] Report To 1 Name: , Report To 1 FAX: NextGen Order #: Alec Olivares MD IMG XR PROCEDURES Edited R esult - Final documented in this encounter Visit Diagnoses Not on filedocumented in this encounter Care Teams State Manager Relationship Specialty Start Date End Date Unknown, Notinfile PCP - General 11/13/16 11/24/16 documented as of this encounter
--- OUTSIDE RECORDS SUMMARY | 2024-03-25 19:36 | XMS_ITS | Encounter Summary ---
Author Organization [facility] Healthcare Address [address] [place] [address] Care Team Providers Care Food And Beverage Outlets Manager Name Role Phone Unknown, Notinfile Primary Care Provider Unavail able Encounter Details Date Type Department Care Team (Latest Contact Info) Description 11/17/2016 7:30 AM CDT - 11/17/2016 11:59 PM CDT Hospital Encounter [facility] [phone] [place] [address] [place] [address] Discharge Disposition: Discharge to home or self care Social History Tobacco Use Types Packs/Day Years Used Date Smoking Tobacco: Never Comments Unknown Sex and Gender Information Value Date Recorded Sex Assigned at Not on file Legal Sex Female 12:29 PM SPEECH LANGUAGE SPECIALIST Gender Identity Not on file Sexual [...] agrees with it. ACC# ??Date Time ??Exam [id number] Nov 17, 2016 08:55:00 [id number] MRI TIB FIB WO CONTRAST R EXAMINATION: ?MRI right tibia and fibula without contrast HISTORY: ??16-year-old spot facer with history of left medial collateral ligament [...] Fax: ?? Attending Fax: ?? Attending ID: ??[id number] Requesting ID: ??[id number] Report To 1 ID: ??[id number] ? Report To 1 Name: ??, ?? Report To 1 FAX: ?? NextGen Order #: ?? Procedure Note Miscellaneous, Not In File - 01/23/2017 ELINOR GALVAN M.D. SHAYLEE KAM M.D. FINAL REPORT The radiology attending physician has personally reviewed this study, and has reviewed and/or edited this written report and agrees with it. ACC# Date Time Exam [id number] Nov 17, 2016 08:55:00 85412 MRI TIB FIB WO CONTRAST R EXAMINATION: MRI right tibia and fibula without contrast HISTORY: 16-year-old spot facer with history of left medial collateral ligament [...] report and agrees with it. Attending: ALEC MNI Requesting: Alec Min Requesting Fax: Attending Fax: Attending ID: [id number] Requesting ID: [id number] Report To 1 ID: [id number] Report To 1 Name: , Report To 1 FAX: NextGen Order #: Alec Min MD [facility] MRI PROCEDURES Edited Result - Final documented in this encounter Visit Diagnoses Not on filedocumented in this encounter Care Teams Food And Beverage Outlets Manager Relationship Specialty Start Date End Date Unknown, Notinfile PCP - General 11/13/16 11/24/16 documented as of this encounter
--- OUTSIDE RECORDS SUMMARY | 2024-03-25 19:36 | XMS_ITS | Encounter Summary ---
Author Organization [facility] Facility Care Team Providers Care Reliability Technologist Name Role Phone Unavailable Primary Care Provider Unavailabl e Encounter Details Date Type Department Care Team (Late st Contact Info) Description 07/10/2015 5:30 PM CDT - 07/10/2015 11:59 PM CDT Hospital Encounter [facility] Sharron, Pelon Estes MD [address] [address] Sprain of medial collateral ligament of left knee, subsequent encounter; Hypertrophy of infrapatellar fat pad Social History Tobacco Use Types Packs/Day Years Used Date Smoking Tobacco: Never Comments Unknown Sex and Gender Information Value Date Recorded Sex Assigned at Not on file Legal Sex Female 12:29 PM INSURANCE CUSTOMER SERVICE SPECIALIST Gender Identity Not on file Sexual [...] agrees with it. ACC# ??Date Time ??Exam [id number] Jul 10, 2015 18:19:00 [id number] MR Knee without cont L ACC# ??Date Time ??Exam [id number] Jul 10, 2015 18:19:00 [id number] MR Knee without cont L EXAMINATION: ?Left [...] BALL M.D. on Jul 11 2015 11:11A [id number] Procedure Note Provider, MD Vani - 07/23/2016 UMESH BALL M.D. LALA MARIE M.D. FINAL REPORT The radiology attending physician has personally reviewed this study, and has reviewed and/or edited this written report and agrees with it. ACC# Date Time Exam [id number] Jul 10, 2015 18:19:00 [id number] MR Knee without cont L ACC# Date Time Exam [id number] Jul 10, 2015 18:19:00 [id number] MR Knee without cont L EXAMINATION: Left [...] BALL M.D. on Jul 11 2015 11:11A [id number] Historical Provider MD SCHAEFER MRI PROCEDURES Final Result documented in this encounter Visit Diagnoses Diagnosis Sprain of medial collateral ligament of left knee, subsequent encounter Hypertrophy of infrapatellar fat pad Hypertrophy of fat pad, knee documented in this encounter
--- OUTSIDE RECORDS SUMMARY | 2024-03-25 19:36 | XMS_ITS | Encounter Summary ---
Author Organization [facility] Healthcare Address [address] [place] [address] Care Team Providers Care Home Appraiser Name Role Phone Marlin Contreras MD Primary Care Provider [phone] Encounter Details Date Type Department Care Team (Late st Contact Info) Description 02/16/2022 Documentation [facility] Social Work [address] [place] [address] Cuca Rain, STREET ENGINEER Social History Tobacco Use Types Packs/Day Years [...] declined 02/02/2022 How often do you attend roman catholic or nondenominational serv ices? Patient declined 02/02/2022 Do you belong to any clubs o r organizations such as roman catholic groups, unions, fraternal or athletic groups, [...] medical care, and heating? Patient declined [facility]ational Stress Questionnaire Answer Date [...] or slept in a prison (including now)? Patient refused 02/02/2022 Comments Unknown Sex and Gender Information Value Date Recorded Sex Assigned at Not on file Legal Sex Female 12:29 PM DISPENSING OPERATOR Gender Identity Not on file Sexual [...] must order them prior. SULEMAN spoke with [facility] who states that they have Thorazine 100MG tablets in stock. SULEMAN spoke with pt's mother Lu [phone] and informed her that [facility] is able to fill prescriptions this evening. Mother confirmed that they have hard scripts in hand. Lu appreciative of intervention. SULEMAN intervention complete. LORRAINE Lainez LCSW [facility] ED Social Work ENSING OPERATOR documented in this encounter Plan of Treatment Not on file documented as of this encounter Visit Diagnoses Not on filedocumented in this encounter Care Teams Home Appraiser Relationship Specialty Start Date End Date Marlin Contreras MD PCP - General 04/07/17 10/09/23 documented as of this encounter
--- OUTSIDE RECORDS SUMMARY | 2024-03-25 19:36 | XMS_ITS | Encounter Summary ---
Author Organization [facility] Healthcare Address [address] [place] [address] Care Team Providers Care Machine I Trimmer Name Role Phone Marlin Contreras MD Primary Care Provider [phone] Encounter Details Date Type Department Care Team (Latest Contact Info) Description 04/07/2017 3:06 PM EVENT SALES MANAGER - 04/07/2017 11:59 PM EVENT SALES MANAGER Hospital Encounter [facility] [phone] Orlin Evans MD [address] [address] Discharge Disposition: Discharge to home or self care Social History Tobacco Use Types Packs/Day Years Used Date Smoking Tobacco: Never Comments Unknown Sex and Gender Information Value Date Recorded Sex Assigned at Not on file Legal Sex Female 12:29 PM EVENT SALES MANAGER Gender Identity Not on file Sexual Orientation Not on file documented as of this encounter Discharge Disposition Disposition Code Departure Means Destination Discharge to home or self care documented in this encounter Plan of Treatment Not on file documented as of this encounter Procedures Procedure Name Priority Date/Time Associated Diagnosis Comments MRI LOWER EXTREMITY JOINT WO CONTRAST Routine 04/07/2017 9:58 PM EVENT SALES MANAGER documented in this encounter Results * MRI Lower Extremity Joint WO Contrast (04/07/2017 9:58 PM EVENT SALES MANAGER) Anatomical Region Laterality Modality N/A Magnetic Resonan ce 04/07/2017 9:58 PM EVENT SALES MANAGER Narrative 04/07/2017 10:47 PM EVENT SALES MANAGER SHAHID CHARLTON MD, PHD LOUISA EMMANUEL M.D. FINAL REPORT The radiology attending physician has personally reviewed this study, and has reviewed and/or edited this written report and agrees with it. ACC# ??Date Time ??Exam [id number] Apr 07, 2017 15:58:00 [id number] MR Knee without cont L EXAMINATION: ??MRI [...] MD, PHD on Apr 07 2017 ??4:45P [id number] CHARLTON MD, PHD LOUISA EMMANUEL M.D. FINAL REPORT The radiology attending physician has personally reviewed this study, and has reviewed and/or edited this written report and agrees with it. Attending: ??NATHAN, ??ORLIN Requesting: ??NATHAN, ??ORLIN Requesting Fax: ?? Attending Fax: ?? Attending ID: ??[id number] Requesting ID: ??[id number] Report To 1 ID: ??[id number] ? Report To 1 Name: ??, ?? Report To 1 FAX: ?? NextGen Order #: ?? Procedure Note Miscellaneous, Not In File - 04/07/2017 SHAHID CHARLTON MD, PHD LOUISA EMMANUEL M.D. FINAL REPORT The radiology attending physician has personally reviewed this study, and has reviewed and/or edited this written report and agrees with it. ACC# Date Time Exam [id number] Apr 07, 2017 15:58:00 [id number] MR Knee without cont L EXAMINATION: MRI [...] MD, PHD on Apr 07 2017 4:45P [id number] CHARLTON MD, PHD LOUISA EMMANUEL M.D. FINAL REPORT The radiology attending physician has personally reviewed this study, and has reviewed and/or edited this written report and agrees with it. Attending: ORLIN EVANS Requesting: ORLIN EVANS Requesting Fax: Attending Fax: Attending ID: [id number] Requesting ID: [id number] Report To 1 ID: [id number] Report To 1 Name: , Report To 1 FAX: NextGen Order #: Orlin Evans MD IMG MRI PROCEDURES Final Result documented in this encounter Visit Diagnoses Not on filedocumented in this encounter Care Teams Machine I Trimmer Relationship Specialty Start Date End Date Marlin Contreras MD PCP - General 04/07/17 10/09/23 documented as of this encounter
--- OUTSIDE RECORDS SUMMARY | 2024-03-25 19:36 | XMS_ITS | Encounter Summary ---
Author Organization [facility] Healthcare Address [address] [place] [address] Care Team Providers Care Support Specialist Name Role Phone Marlin Contreras MD Primary Care Provider [phone] Bettie Cabezas MD Unavailable [phone] Encounter Details Date Type Department Care Team (Late st Contact Info) Description 05/05/2022 2:15 PM INSPECTOR BOILER Telemedicine [facility] Psychiatry [facility] [address] [facility] [address] [place] [address] Bettie Cabezas MD [address] [place] [address] Bipolar disorder, current episode depressed, [...] often do you attend chur ch or yarsanism services? Never 02/23/2022 Do you belong to [...] staff should administer the PHQ-9) 1 02/23/2022 [facility] - Occupational [...] a group home (including now)? No 02/23/2022 Comments Unknown Sex and Gender Information Value Date Recorded Sex Assigned at Not on file Legal Sex Female 12:29 PM INSPECTOR BOILER Gender Identity Not on file Sexual [...] took place via real-time video connection with [employer]. During the visit, I was located at home and the patient was located at home in the [facility]. The patient visit started at 2:44 [...] medical recordsfor this encounter. Bettie Traore MD Leasing Professional, PGY-3 ECTOR BOILER ECTOR BOILER documented in this encounter Plan of [...] documented as of this encounter Care Teams Support Specialist Relationship Specialty Start Date End Date Marlin Contreras MD PCP - General 04/07/17 10/09/23 Bettie Cabezas MD [address] [place] [address] Resident Psychiatry 03/23/22 09/23/23 documented as of this encounter
--- OUTSIDE RECORDS SUMMARY | 2024-03-25 19:36 | XMS_ITS | Encounter Summary ---
Author Organization [facility] Healthcare Address [address] [place] [address] Care Team Providers Care Jewelry Consultant Name Role Phone Marlin Contreras MD Primary Care Provider [phone] Bettie Cabezas MD Unavailable [phone] Encounter Details Date Type Department Care Team (Late st Contact Info) Description 04/30/2022 3:45 PM CONSTRUCTION CONTROLLER Office Visit [facility] Psychiatry [facility] [address] [facility] [address] [place] [address] Bettie Cabezas MD [address] [place] [address] Bipolar disorder, current episode depressed, [...] often do you attend chur ch or mormon services? Never 02/23/2022 Do you belong to [...] staff should administer the PHQ-9) 1 02/23/2022 [facility] - Occupational Stress Questionnaire Answer Date [...] in a fci (including now)? No 02/23/2022 Comments Unknown Sex and Gender Information Value Date Recorded Sex Assigned at Not on file Legal Sex Female 12:29 PM CONSTRUCTION CONTROLLER Gender Identity Not on file Sexual Orientation Not on file documented as of this encounter Last Filed Vital Signs Vital Sign Reading Time Taken Comments Blood Pressure 101/64 04/30/2022 3:22 PM CONSTRUCTION CONTROLLER Pulse 113 04/30/2022 3:22 PM CONSTRUCTION CONTROLLER Temperature 36.3 ??C (97.3 ??F) 04/30/2022 3:22 PM CS T Respiratory Rate - - Oxygen Saturation 99% 04/30/2022 3:22 PM CONSTRUCTION CONTROLLER Inhaled Oxygen Concentration - - Weight 62.2 kg (137 lb 3 oz) 04/30/2022 3:22 PM CONSTRUCTION CONTROLLER Height 162.6 cm (5' 4 ) 04/30/2022 3:22 PM CONSTRUCTION CONTROLLER Body Mass Index 23.55 04/30/2022 3:22 PM CONSTRUCTION CONTROLLER documented in this encounter Progress Notes * Bettie Traore MD - 04/30/2022 3:45 PM CST Patient ID: Stephanie Coates is a 22 y.o. female with a date of of 2000. She is presenting to the [facility] for a follow-up appointment. [...] records for this encounter. Bettie Traore MD Night Baker, PGY-3 TRUCTION CONTROLLER documented in this encounter Plan of Treatment Not on file documented as of this encounter Visit Diagnoses Diagnosis Bipolar disorder, current episode depressed, mild or moderate severity, unspecified (HCC)- Primary documented in this encounter Care Teams Jewelry Consultant Relationship Specialty Start Date End Date Marlin Contreras MD PCP - General 04/07/17 10/09/23 Bettie Cabezas MD [address] [place] [address] Resident Psychiatry 03/23/22 09/23/23 documented as of this encounter
--- OUTSIDE RECORDS SUMMARY | 2024-03-25 19:36 | XMS_ITS | Encounter Summary ---
Author Organization [facility] Facility Care Team Providers Care Director Cardiology Name Role Phone Unavailable Primary Care Provider Unavailabl e Encounter Details Date Type Department Care Team (Late st Contact Info) Description 02/17/2015 - 02/17/2015 11:59 PM FACTORY CLERK [facility] Pelon Estes MD [address] [address] Social History Tobacco Use Types Packs/Day Years Used Date Smoking Tobacco: Never Comments Unknown Sex and Gender Information Value Date Recorded Sex Assigned at Not on file Legal Sex Female 12:29 PM FACTORY CLERK Gender Identity Not on file Sexual Orientation Not on file documented as of this encounter Plan of Treatment Not on file documented as of this encounter Visit Diagnoses Not on filedocumented in this encounter
--- OUTSIDE RECORDS SUMMARY | 2024-03-25 19:36 | XMS_ITS | Encounter Summary ---
Author Organization [facility] Healthcare Address [address] [place] [address] Care Team Providers Care Supervisor Sawing And Assembly Name Role Phone Marlin Contreras MD Primary Care Provider [phone] Bettie Cabezas MD Unavailable [phone] Encounter Details Date Type Department Care Team (Late st Contact Info) Description 08/13/2022 Telephone [facility] Psychiatry [facility] [address] [facility] [address] [place] [address] Bettie Cabezas MD [address] [place], [place] [id number] Social History Tobacco Use Types Packs/Day Years [...] How often do you attend chur or rastafarian services? 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 Thanks! documented in this encounter Plan of Treatment Not on file documented as of this encounter Visit Diagnoses Not on filedocumented in this encounter Care Teams Supervisor Sawing And Assembly Relationship Specialty Start Date End Date Marlin Contreras MD PCP - General 04/07/17 10/09/23 Bettie Cabezas MD [address] [place] [address] Resident Psychiatry 03/23/22 09/23/23 documented as of this encounter
--- OUTSIDE RECORDS SUMMARY | 2024-03-25 19:36 | XMS_ITS | Encounter Summary ---
Author Organization [facility] Healthcare Address [address] [place] [address] Care Team Providers Care Cage Cashier Name Role Phone Marlin Contreras MD Primary Care Provider [phone] Bettie Cabezas MD Unavailable Reason for Visit * Reason Comments Suicidal Ideation * Auth/Cert (Routine) Specialty Diagnoses / Procedures Referred By Contac t Referred To Contact Diagnoses Suicidal ideation Depression, unspecified depression type Procedures NA Referral ID Status Reason Start Date Expiration Date Visits Re quested Visits Authorized [id number] 1 1 Encounter Details Date Type Department Care Team (Latest Contact Info) Description 08/23/2022 2:44 PM CDT - 08/26/2022 4:42 PM CDT Hospital Encounter [facility] Psychiatric Stabilization Center [address] [place] [id number] Jimmy Ruiz MD [address] [place] [address] Naomi Cabral MD [address] [place] [address] [place] [address] [place] [address] Eliot Rubio MD [address] [place] [address] Simi Rodriguez MD [address] [place] [address] Depression, unspecified depression type (Primary Dx); Suicidal [...] often do you attend chur ch or presybeterian services? 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 Bettie Traore at the [facility] Admission Date: 08/23/2022 Discharge Date: 08/26/2022 Admission Location: [facility] Hospital Problems/Diagnoses: Principal Problem: [...] Admission Status: Voluntary GUARDIANSHIP: No POWER OF LEAD TECHNICAL WRITER ([place] ONLY): SOURCE OF INFORMATION: Patient known [...] attending both individual and group therapies at [facility] and sees psychiatric resident Bettie Traore at [facility] ~ q6 weeks. She reports she [...] 2021) admitted as a voluntary patient to [facility] for suicidal ideation in the setting of increased depressive symptoms (low mood, feelings of guilt, difficulty concentrating, social isolation, poor self care, SI) for the past several weeks. Her outpatient regimen of Rosemount 900mg qhs and Latuda 80mg with evening [...] Center 09/03/2022 3:15 PM Bettie Tra[facility] MD [facility] 10/27/2022 3:00 PM [facility] PSYCH FOLLOW UP [facility] documented in this encounter Medications at Time [...] follow up scheduled with psychiatrist, at the [facility]. Patient will receive social support [...] mild or moderate severity, unspecified ([facility]) Assessment: patient known to me, established [...] with established outpatient care. Meds ordered through [facility]. * Simi Rodriguez MD - 08/26/2022 11:57 [...] emergency contact information related to inpatient stay: [facility] - Psychiatric Service Center: [phone] (ask for Charge Nurse) Primary Physician, other healthcare professional, or site for follow up care ([facility] has specific follow up appointments): PCP: Marlin Contreras MD [facility] psychiatry These instructions have been provided to and reviewed with the patient/housekeeper caregiver prior to discharge: Yes * Jamila Ochoa MSW - 08/25/2022 2:05 PM CDT SULEMAN spoke with pt's mother to provide an update on pt. Lu reports that pt has really been struggling with depression and not attending to her daily hygiene needs. Mother did not report any other concerns at this time. Lu (Mother) [phone] * Patrica Elena CTRS - 08/25/2022 9:11 AM CDT Activity Therapy Assessment Pt was BIB her father after she began experiencing SI. Pt has been feeling depressed, hopeless, andworthless, but does not know what is triggering these feelings. Pt has been unable to enjoy the activities she takes part in, and has been unemployed from her [employer] career lately. Pt is denying SIat this [...] Activities of Daily Living Deficits in Functional [place] Poor stress management skills;Poor structure of time [...] an outpatient psychiatrist? : No Current outpatient binder caser? : No Mental Health Onset: Per chart, 2020 Previous Psychiatric Admission: Yes (Comment) Dates of previous psychiatric admissions: 03/22-, 02/23-02/27/22 and 02/01- Last appointment with psychiatric provider? : Last (08/24/221435) Patient Information: Patient Information Marital Status: Not [...] qualifies for medication assistance Pharmacy Information : [facility] in [place], [place] General Functioning: Pt is able to [...] actively in assessment. Support Contact Name/Number: Colten [phone] and mother [phone] Family Perspective: Pt gave verbal permission to contact collateral. Past Support System : Parents. Parents : Living. Children : None Siblings: Pt reports one brother/ Do you have a Congregation Preference or Affiliation?: No Are there any Congregation Practices that are important to maintain while admitted?: No Referral to Basketball Coach : No Hope and Strength during Difficult Times: God Do you have Cultural Factors that are important to you?: No Family History of Mental Illness: Unknown Sexual Orientation : Heterosexual Born and Raised: [place], [place] Description of Childhood: Stable. History of physical abuse? : No History of physically abusing others? : No History of sexual abuse?: No History of sexually abusing others? : No History of Mental/Emotional Abuse? : No (08/24/22 4661) Strengths, Assets, Liabilities and Stressors: Strengths, Assets, [...] Current Stressors: No income, Coping skills (08/24/22 2724) Social Determinants of Health Tobacco Use: High [...] 0 min Stress: Stress Concern Present (08/24/2022) [employer] - Occupational Stress Questionnaire Feeling of Stress : Rather much Social Connections: Socially Isolated (02/23/2022) Social Connection and Isolation Panel [NHANES] Frequency of Communication with Friends and Family: More than three times a week Frequency of Social Gatherings with Friends and Family: More than three times a week Attends Congregation Services: Never Active Member of Clubs or [...] an outpatient psychiatrist? : No Current outpatient binder caser? : No Mental Health Onset: Per chart, 2020 Previous Psychiatric Admission: Yes (Comment) Dates of previous psychiatric admissions: 03/22-, 02/23-02/27/22 and 02/01- Last appointment with psychiatric provider? : Last (08/24/22 143) Problem/Goals: Problems/Goals Problems Identified by Social Work: Si and medication adjustments Short term goals: Eliminate thoughts of SI and engage in unot programming. Patient Stated Goals: Try something new. Long-Term Goals: Unknown Social Work Plan/Intervention: Provide ongoing assessment, offer groups and assist with discharge planning. (08/24/221435) Discharge Planning: Discharge Planning Support System: [facility] Resources: Mental health Home Care [...] with plan: No one (08/24/221435) Preferred Pharmacy: [address] [address] [id number] [place] [address] [facility] [address] [place] [id number] Impressions: Stephanie Coates is a 22 y.o. single, heterosexual, domiciled with family, unemployed, female that admitted voluntarily to [facility] hospital for SI. Pt participated actively in [...] 3:23 PM CDT SAFE-T Protocol with C-SSRS (Ranger Risk and Protective Factors) - Recent Step 1: Identify Risk Factors: Ranger Suicide Severity Rating Scale (Recent Screener) Initial [...] things - anyone or anything (e.g., family, spiritism, pain of ) - that stopped you [...] Admission Status: Voluntary GUARDIANSHIP: No POWER OF LEAD TECHNICAL WRITER ([place] ONLY): SOURCE OF INFORMATION: Patient known [...] attending both individual and group therapies at [facility] and sees psychiatric resident Bettie Traore at [facility] ~ q6 weeks. She reports she [...] the community REVIEW OF SYSTEMS: Please see AUTOMOTIVE PRODUCT ENGINEER/MD Consult note PHYSICAL EXAMINATION: Vitals: 08/25/22 0700 BP: 114/75 Pulse: 91 Resp: 20 Temp: 36.8 ??C (98.3 ??F) SpO2: 99% No intake/output data recorded. No intake/output data recorded. Please see AUTOMOTIVE PRODUCT ENGINEER/MD Consult note for additional details NEUROLOGICAL EXAMINATION: Please see AUTOMOTIVE PRODUCT ENGINEER/MD Consult MENTAL STATUS EXAMINATION: General Appearance and [...] Backgroud Clear Acceptable QC Control Line Acceptable Rosemount level Collection Time: 08/23/22 3:03 PM Result Value Ref Range Rosemount 0.4 (L) 0.6 - 1.2 mmol/L PRIMARY DIAGNOSIS/ REASON FOR INPATIENT ADMISSION: Bipolar disorder, current episode depressed, mild or moderate severity, unspecified ([facility]) Assessment: patient known to me, established [...] OF PRESENT ILLNESS: Patient is known to [facility] psychiatry - for complete psychiatric hx, please [...] Leyva's daughter, etc.). She was admitted to [facility] for eladio for 15 days in [...] Backgroud Clear Acceptable QC Control Line Acceptable Rosemount level Collection Time: 08/23/22 3:03 PM Result Value Ref Range Rosemount 0.4 (L) 0.6 - 1.2 mmol/L Principal [...] Recommendations: - Please admit patient VOLUNTARY to [facility] or Main under Dr. Eckert under standard suicide/elopement/assault precautions - voluntary paperwork signed, faxed to patient placement, and placed in chart - Discussed with ED physician and psychiatry financial services internship on-call - While boarding, please continue patient [...] with any questions or to request re-evaluation: [phone] documented in this encounter Nursing Notes * [...] is pleasant. No concerns nor complaints voiced. Gary is placed on left wrist, personal hygiene [...] withdrawn at times. No other concerns voiced. Gary is placed on left wrist. Q 15 [...] are locked downstairs with security. Dr. Deepika Valentine notified. New orders are in. Refer to [...] distress is observed. Will continue to monitor. Gary is on and paired at this time. 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 She continues totake her lithium and Latuda for bipolar disorder, stop taking Strattera which was recently prescribed because she did not think it was helping her. Patient denies auditory hallucinations, homicidal ideation. Patient History: Patient Active Problem List Diagnosis Date Noted Bipolar disorder, current episode depressed, mild or moderate severity, unspecified ([facility]) 03/23/2022 Bipolar affective disorder type 1, current episode manic, severe, with psychotic symptoms 02/23/2022 Cannabis dependence ([facility]) 02/02/2022 Routine general medical examination at a health care facility 02/02/2022 Bipolar affective disorder, current episode manic with psychotic symptoms ([facility]/H[facility]) ([facility]) 02/01/2022 Past Medical History: Diagnosis Date Bipolar 1 disorder ([facility]) History reviewed. No pertinent surgical history. [...] Plan: Voluntary Admission to first available either [facility] or Main By: Bettie Mejia MD Time: 08/24 653 Comment: Signout. [facility] bipolar, presents with suicidal ideation. She is voluntarily admitted to [facility]. By: Eliot Rubio MD Depression, unspecified [...] 2021) admitted as a voluntary patient to [facility] for suicidal ideation in the setting of increased depressive symptoms (low mood, feelings of guilt, difficulty concentrating, social isolation, poor self care, SI) for the past several weeks. Her outpatient regimen of Rosemount 900mg qhs and Latuda 80mg with evening [...] admission was staffed with on 08/25/2022 at [facility]. CURRENT DIAGNOSES: Principal Problem: Bipolar Disorder, acute [...] ADMISSION STATUS: Voluntary GUARDIANSHIP: No POWER OF LEAD TECHNICAL WRITER ([place] ONLY): NA SOURCE(S) OF INFORMATION: Patient EHR, includes ED psychiatric consultation note CHIEF COMPLAINT: I'm having suicidal thoughts. HISTORY OF PRESENT ILLNESS: Ms. Stephanie Coates is a 22yo female who was previously diagnosed with Bipolar disorder after presenting during an acute manic episode in January 2022. Her Bipolar disorder is managed outpatient by Dr. Traore with Latuda 80mg qhs and Rosemount 900mg qhs. She also attends DBT regularly. [...] Alert and oriented x3 LABORATORY/DIAGNOSTIC DATA REVIEW: Rosemount level Collection Time: 08/23/22 3:03 PM Result Value Ref Range Rosemount 0.4 (L) 0.6 - 1.2 mmol/L Drugs [...] symptoms of eladio are managed currently on Rosemount 900mg & [id number] without reoccurrence. She is also is experiencing [...] anxiety with hydroxyzine 10mg. Plan: -Continue 900mg Rosemount, repeat trough level. -Continue Latuda 80mg with dinner -Start Prozac 10mg daily. Monitor for symptoms of eladio. -PRN Hydroxyzine for anxiety Code Status: Full Code Precautions: Suicide Diet: Adult Diet Regular; Send on Disposables, Deliver tray to nursing, Application Services Manager check DVT Prophylaxis: None; ambulating TID+ Chelo Kimble Medical Student Psychiatry Clerkship 08/25/2022 11:15 AM Cosigned by Simi Rodriguez MD at 08/27/2022 11:12 AM CDT * Psy Treatment Planning - Simi Rodriguez MD - 08/25/2022 9:47 AM CDT Inpatient Psychiatric Initial Treatment Planning Note Date: 08/25/2022 Time: 9:47 AM Patient Name: Stephanie Coates Date of : 2000 Sex: Female Room/Bed: [id number] Payor Info: Self-Pay Admission Date: 08/24/22 Admission [...] disorder, current episode manic with psychotic symptoms ([facility]) (HCC) 02/01/2022 Team Members Present: Physician Cage Cashier: Simi Rodriguez MD Nursing Cage Cashier: Other (comment) (Bri Ellsworth, MSN, RN) Social Work Cage Cashier: Jamila Ochoa TIRE REPAIR MECHANIC Activity Therapy Cage Cashier: Jamila Mcknight CTRS Pharmacy Cage Cashier: Other (comment) (Leobardo Silva, [place]) Patient/Family Present: Patient Present: No Patient's Family [...] of SI and engage in unot programming. Long-Term Goals: Unknown Care Plans: Multi-Disciplinary Problems Active [...] type Physician Documentation: Projected Discharge Date: 08/27/2022 MD Plan: voluntary admission. Continue latuda 80mg and give with evening meal. Continue lithium 900mg qhs. Add prozac 10mg every day. PRNs for comfort and safety. Sw and internal medicine consultation. Encourage active participation in psychotherapeutic groups and treatment planning. Tree Pruner Goals: stable housing, stable employment, continued sobriety, [...] an outpatient psychiatrist? : No Current outpatient binder caser? : No Mental Health Onset: Per chart, 2020 Previous Psychiatric Admission: Yes (Comment) Dates of previous psychiatric admissions: 03/22-, 02/23-02/27/22 and 02/01- Last appointment with psychiatric provider? 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 Education Level : Vocational Training, High School Diploma Insurance : Self-pay Medication : Pt qualifies for medication assistance Pharmacy Information : [facility] in [place], [place] General Functioning: Pt is able to [...] actively in assessment. Support Contact Name/Number: Colten [phone] and mother [phone] Family Perspective: Pt gave verbal permission to contact collateral. Past Support System : Parents. Parents : Living. Children : None Siblings: Pt reports one brother/ Do you have a Congregation Preference or Affiliation?: No Are there any Congregation Practices that are important to maintain while admitted?: No Referral to Basketball Coach : No Hope and Strength during Difficult Times: God Do you have Cultural Factors that are important to you?: No Family History of Mental Illness: Unknown Sexual Orientation : Heterosexual Born and Raised: [place], [place] Description of Childhood: Stable. History of [...] 0 min Stress: Stress Concern Present (08/24/2022) [employer] - Occupational Stress Questionnaire Feeling of Stress : Rather much Social Connections: Socially Isolated (02/23/2022) Social Connection and Isolation Panel [NHANES] Frequency of Communication with Friends and Family: More than three times a week Frequency of Social Gatherings with Friends and Family: More than three times a week Attends Congregation Services: Never Active Member of Clubs or [...] an outpatient psychiatrist? : No Current outpatient binder caser? : No Mental Health Onset: Per chart, 2020 Previous Psychiatric Admission: Yes (Comment) Dates of previous psychiatric admissions: 03/22-, 02/23-02/27/22 and 02/01- Last appointment with psychiatric provider? : Last (08/24/221435) Problem/Goals: Problems/Goals Problems Identified by Social Work: Si and medication adjustments Short term goals: Eliminate thoughts of SI and engage in unot programming. Patient Stated Goals: Try something new. Tree Pruner Goals: Unknown Social Work Plan/Intervention: Provide ongoing [...] plan: No one (08/24/22 1436) Preferred Pharmacy: [facility] [address] [facility] [address] [facility] [address] [id number] [address] [facility] [phone] Impressions: Stephanie Coates is a 22 y.o. single, heterosexual, domiciled with family, unemployed, female that admitted voluntarily to [facility] for SI. Pt participated actively in assessment [...] She is voluntarily admitted to psychiatry at [facility] or [facility]. Eliot Rubio MD 08/30/222053 * Plan of Care - Gen Sheriff RN - 08/24/2022 1:36 AM CDT Case Management note: cocktail waitress reviewed chart and patient continues to meet hospital level of care at this time. Please contact cocktail waitress or ED Banana Ripening Room Supervisor for questions or assistance with potential throughput alternatives. * ED Re-evaluation Note - Naomi Cabral MD - 08/23/2022 3:30 PM CDT ED Re-evaluation Signed out by the off-going provider. Patient with a history of bipolar disorder, followed by psychiatry. Presenting here with suicidal ideation. Pending psychiatry consult. Patient seen by psychiatry and agreed to voluntary admission to either [facility] or [facility]. Home medications restarted per psychiatry discussion. Rosemount level subtherapeutic, but patient has missed a [...] documented in this encounter Results * (ABNORMAL) Rosemount level (08/23/2022 3:03 PM CDT) Rosemount 0.4(L) 0.6 - 1.2 mmol/L J[facility] Blood 08/23/2022 3:03 PM CDT 08/23/2022 3:37 PM CDT us Jimmy Ruiz MD LAB BLOOD ORDERABLES Margie l Result [facility] Department [place] [address] * POCT hCG, urine (08/23/2022 3:02 PM CDT) HCG, ur, POC Negative Lot Number [id number] QC Backgroud Clear Acceptable QC Control Line Acceptable Urine 08/23/2022 3:02 PM CDT Jimmy Ruiz MD POINT OF CARE TEST ORDERA BLES Final Result * eGFR (08/23/2022 2:58 PM CDT) Pathologist [facility] eGFR >90 90 - 130 mL/min/1. 73 m2 JAY [facility] Comment: Interpretive Data Reference Interval Normal ?>/= [...] ORDERABLES Margie l Result Performing Organization Address [facility] de Phone Number [facility] Department [place] [address] * (ABNORMAL) Urinalysis, microscopic only (08/23/2022 2:58 PM CDT) Pathologist [facility] WBC, ur 11-20(A) 0 - 5 /HPF [facility] RBC, ur 0-2 0 - 2 /HPF [facility] Epithelial cells, squamous, ur 1-5 0 - 5 /HPF [facility] Bacteria, ur 3+(A) [facility] Mucous, ur Present(A) [facility] Amorphous crystals, ur 1+(A) [facility] Urine 08/23/2022 2:58 PM CDT 08/23/2022 3:02 PM CDT Jimmy Ruiz MD LAB URINE ORDERABLES Margie l Result Performing Organization Address [facility] de Phone Number [facility] Department [place] [address] * Differential, auto (08/23/2022 2:58 PM CDT) Pathologist [facility] Neutrophil abs 6.3 1.7 - 6.5 K/cumm [facility] Imm gran abs 0.0 0.0 - 0.1 K/cumm [facility] Lymphocyte abs 2.7 0.8 - 3.3 K/cumm [facility] Monocyte abs 0.8 0.2 - 0.8 K/cumm [facility] Eosinophil abs 0.2 0.0 - 0.5 K/cumm [facility] Basophil abs 0.1 0.0 - 0.1 K/cumm [facility] Neutrophil pct 62.9 % [facility] Comment: Interpretive Data Percent cell count reference ranges are not reported, since discordance with absolute values may lead to misinterpretation of CBC data. Current Interpretive Data was last revised on 2017. Imm gran pct 0.4 % [facility] Comment: Interpretive Data Percent cell count reference ranges are not reported, since discordance with absolute values may lead to misinterpretation of CBC data. Current Interpretive Data was last revised on 2017. Lymphocyte pct 26.4 % [facility] Comment: Interpretive Data Percent cell count reference ranges are not reported, since discordance with absolute values may lead to misinterpretation of CBC data. Current Interpretive Data was last revised on 2017. Monocyte pct 7.4 % [facility] Comment: Interpretive Data Percent cell count reference [...] revised on 2017. Basophil pct 0.6 % [facility] Comment: Interpretive Data Percent cell count reference ranges are not reported, since discordance with absolute values may lead to misinterpretation of CBC data. Current Interpretive Data was last revised on 2017. Blood 08/23/2022 2:58 PM CDT 08/23/2022 3:37 PM CDT Jimmy Ruiz MD LAB BLOOD ORDERABLES Margie hendrix Result [facility] Department [place] [address] * (ABNORMAL) Urinalysis reflex to microscopic (08/23/2022 2:58 PM CDT) Color, ur Yellow Yellow [facility] Clarity, ur Cloudy(A) Clear [facility] Specific gravity, ur 1.024 1.003 - 1.030 [facility] pH, urine 6.5 [facility] Protein, ur ql Trace Negative [facility] Glucose, ur ql Negative Negative [facility] Ketones, ur Negative Negative [facility] Bilirubin, ur Negative Negative [facility] Blood, ur Negative Negative [facility] Urobilinogen, ur <2.0 <2.0 mg/dL [facility] Nitrite, ur Negative Negative [facility] Leukocyte esterase, ur 1+(A) Negative [facility] UA reflex comment Reflex to microscopic UA will be performed. [facility] Urine 08/23/2022 2:58 PM CDT 08/23/2022 3:02 PM CDT Narrative [facility] - 08/23/2022 3:41 PM CDT ?? Urine pH is affected by diet, medications, systemic acid-base disturbances, and renal tubular function. ??pH may affect urinary stone formation. ??For example, urine pH below 6.0 may help reduce the tendency for calcium phosphate stones and pH greater than 6.0 may reduce the tendency for uric acid stone formation. Source: [place]. Last revised 04-07-2017 us Jimmy Ruiz MD LAB URINE ORDERABLES Margie hendrix Result [facility] Department [place] [address] * Drugs of Abuse Screen, Urine without Confirmation (08/23/2022 2:58 PM CDT) Amphetamine, ur Not Detected CutOff 500ng/mL [facility] Comment: Interpretive Data - Amphetamines: ??Samples containing greater than 500 ng/mL d-methamphetamine ??or other cross-reacting amphetamine compounds are reported as positive. ??Amphetamine immunoassays are subject to significant false positive rates due to cross-reactivity of non-amphetamine drugs. Current Interpretive Data was last reviewed 2018. Barbiturates, ur Not Detected CutOff 200ng/mL [facility] Comment: Interpretive Data - Barbiturates: ??Samples containing greater than 200 ng/mL secobarbital or other cross-reacting barbiturate compounds are reported as positive. ??False positive and false negative results are possible. Current Interpretive Data was last reviewed 2018. Benzodiazepines, ur Not Detected CutOff 100ng/mL [facility] Comment: Interpretive Data - Benzodiazepines: ??Samples containing greater than 100 ng/mL nordiazepam or other cross-reacting compounds are reported as positive. ?? False positive and false negative results are possible. ?? Current Interpretive Data was last reviewed 2018. Cannabinoids, ur Not Detected CutOff 50 ng/mL [facility] Cocaine, ur Not Detected CutOff 150ng/mL [facility] Comment: Interpretive Data - Cocaine: ??Samples containing greater than 150 ng/mL benzoylecgonine or other cross-reacting compounds are reported as positive. False positive and false negative results are possible. Current Interpretive Data was last reviewed 2018. Fentanyl, Ur Not Detected Cutoff 1 ng/mL [facility] Comment: Interpretive Data - Fentanyls: ??Samples containing greater than 1 ng/mL fentanyl or other cross-reacting fentanyl compounds are reported as detected. ??False positive and false negative results are possible. Current Interpretive Data was last reviewed 2018. Methadone, ur Not Detected CutOff 300ng/mL [facility] Comment: Interpretive Data - Methadone: ??Samples containing greater than 300 ng/mL d,l-methadone or other cross-reacting compounds are reported as positive. ??False positive and false negative results are possible. Current Interpretive Data was last reviewed 2018. Opiates, ur Not Detected CutOff 300ng/mL [facility] Comment: Interpretive Data - Opiates: ??Samples containing greater than 300 ng/mL morphine or other cross-reacting compounds are reported as positive. ??False positive and false negative results are possible. Current Interpretive Data was last reviewed 2018. Oxycodone, ur Not Detected CutOff 100ng/mL [facility] Comment: Interpretive Data - Oxycodone: ??Samples containing greater than 100 ng/mL oxycodone or other cross-reacting compounds are reported as positive. ??False positive and false negative results are possible. ?? Current Interpretive Data was last reviewed 2018. Phencyclidine, ur Not Detected CutOff 25 ng/mL [facility] Comment: Interpretive Data - Phencyclidine: ??Samples containing greater than 25 ng/mL phencyclidine or other cross-reacting compounds are reported as positive. ??False positive and false negative results are possible. ?? Current Interpretive Data was last reviewed 2018. Urine Creatinine 182 mg/dL [facility] Comment: Interpretive Data Urine Creatinine: < 10 mg/dL is extremely dilute = or > 10 but < 20 mg/dL is dilute = or > 20 mg/dL is normal Current Interpretive Data was last revised on 2017. Urine 08/23/2022 2:58 PM CDT 08/23/2022 3:37 PM CDT Narrative [facility] - 08/23/2022 4:13 PM CDT Drug of Abuse screening is performed by immunoassay for medical purposes only. ??This is not to be used for Pain Management purposes. us Jimmy Ruiz MD LAB URINE ORDERABLES Margie l Result Performing Organization Address [facility] Co de Phone Number [facility] Department [place] [address] * Ethanol (08/23/2022 2:58 PM CDT) Ethanol <10 <=10 mg/dL [facility] Comment: Interpretive Data Legal limit of intoxication > or = 80 mg/dL Levels > or = 400 mg/dL are potentially TOXIC. Current interpretive data was last revised on 2018. Blood 08/23/2022 2:58 PM CDT 08/23/2022 3:37 PM CDT us Jimmy Ruiz MD LAB BLOOD ORDERABLES Margie l Result Performing Organization Address [facility] Co de Phone Number [facility] [place] [address] [place] [address] * TSH reflex to free T4 (08/23/2022 2:58 PM CDT) TSH 1.20 0.30 - 4.20 mcIUnit/mL [facility] Blood 08/23/2022 2:58 PM CDT 08/23/2022 3:37 PM CDT us Jimmy Ruiz MD LAB BLOOD ORDERABLES Margie l Result [facility] Department [place] [address] * Comprehensive metabolic panel (08/23/2022 2:58 PM CDT) Sodium 140 135 - 145 mmol/L [facility] Potassium, pl 4.0 3.3 - 4.9 mmol/L [facility] Chloride 103 97 - 110 mmol/L [facility] CO2 27 22 - 32 mmol/L [facility] Anion gap 10 2 - 15 mmol/L [facility] BUN 9 8 - 25 mg/dL [facility] Creatinine 0.78 0.60 - 1.10 mg/dL [facility] Glucose 86 70 - 199 mg/dL [facility] Comment: Interpretive Data Fasting glucose >/= [...] 2022. Calcium 10.0 8.5 - 10.3 mg/dL [facility] Bilirubin, total 0.4 0.1 - 1.2 mg/dL [facility] Protein, pl 7.5 6.5 - 8.5 g/dL [facility] Albumin 4.9 3.5 - 5.0 g/dL [facility] Alk phos 100 40 - 130 Units/L [facility] ALT 14 7 - 45 Units/L [facility] AST 23 10 - 45 Units/L [facility] Blood 08/23/2022 2:58 PM CDT 08/23/2022 3:37 PM CDT Jimmy Ruiz MD LAB BLOOD ORDERABLES Margie l Result Performing Organization Address [facility] de Phone Number [facility] Department [place] [address] * (ABNORMAL) CBC with auto differential (08/23/2022 2:58 PM CDT) [facility] WBC 10.1(H) 3.8 - 9.9 K/cumm [facility] Hgb 13.8 11.9 - 15.5 g/dL [facility] Hct 41.9 35.6 - 45.5 % [facility] Plt 377 150 - 400 K/cumm [facility] MPV 9.1 9.1 - 12.3 fL [facility] RBC 4.63 3.90 - 5.20 M/cumm [facility] MCV 90.5 81.3 - 96.4 fL [facility] MCH 29.8 27.1 - 33.3 pg [facility] MCHC 32.9 32.3 - 35.7 g/dL [facility] RDW CV 12.3 11.1 - 14.9 % [facility] RDW SD 40.2 35.7 - 48.1 fL [facility] NRBC abs 0.00 0.00 - 0.01 K/cumm [facility] Blood (Blood, Venous) 08/23/2022 2:58 PM CDT 08/23/2022 3:37 PM CDT us Jimmy Ruiz MD LAB BLOOD ORDERABLES Margie l Result Performing Organization Address [facility] Co de Phone Number [facility] Department [place] [address] documented in this encounter Visit Diagnoses Diagnosis [...] manipulate tablet/capsule. 1405 (Given - Provider: Chanel Steele, SAGAR) 0820 (Given - Provider: Franco Gordon, RN) lithium ER (ESKALITH) extended release tablet 900 [...] Mariano RN) 2009 (Given - Provider: Rudy Marinao RN) nicotine polacrilex (NICORETTE) gum 2 mg [...] Mariano, SAGAR) 2009 (Given - Provider: Rudy Mariano, RN) documented in this encounter Orders Medications [...] 08/24/2022 documented in this encounter Care Teams Cage Cashier Relationship Specialty Start Date End Date Marlin Contreras MD PCP - General 04/07/17 10/09/23 Bettie Cabezas MD [address] [place] [address] Resident Psychiatry 03/23/22 09/23/23 documented as of this encounter
--- OUTSIDE RECORDS SUMMARY | 2024-03-25 19:36 | XMS_ITS | Encounter Summary ---
Author Organization [facility] Healthcare Address [address] [place] [address] Care Team Providers Care Record Changer Assembler Name Role Phone Marlin Contreras MD Primary Care Provider [phone] Bettie Cabezas MD Unavailable [phone] Reason for Visit * Reason Onset Date Comments labs 03/09/2022 Follow-up 03/23/2022 Encounter Details Date Type Department Care Team (Late st Contact Info) Description 03/09/[address] [facility]- Psychiatry Clinic [address] [facility] [address] [place] [address] Bettie Cabezas MD [address] [place] [address] labs; Follow-up Social History Tobacco [...] How often do you attend chur or hoahaoism services? Never 02/23/2022 Do you belong to any clubs o r organizations such as evangelical groups, unions, fraternal or athletic groups, or [...] staff should administer the PHQ-9) 1 02/23/2022 [facility] [...] in a longterm (including now)? No 02/23/2022 Comments Unknown Sex and Gender Information Value Date Recorded Sex Assigned at Not on file Legal Sex Female 12:29 PM LIVE SOURCE OPERATOR Gender Identity Not on file Sexual [...] to know patient is currently admitted at [facility]. Riana SOURCE OPERATOR * Telephone Encounter - Riana Guidry - 03/18/2022 9:57 AM CST Mom would like to speak with you about the labs. She wants to know if any adjustment needs to done for medications. Please call. Riana SOURCE OPERATOR * Addendum Note - Bettie Mesa MD - 03/16/2022 1:04 PM CSTAddended by: BETTIE MESA on: 03/16/2022 01:04 PM Modules accepted: Orders SOURCE OPERATOR * Telephone Encounter - Bettie Mesa MD - 03/16/2022 1:04 PM LIVE SOURCE OPERATOR Resent lab order for lithium level to [facility], called and left voicemail for patient. SOURCE OPERATOR * Telephone Encounter - Riana Guidry - 03/16/2022 8:43 AM CST Patient and mom went to [facility] for labs this am. Mom said she took off from work to take care of theredraw you requested. She stated their wasn't an order in their system. Please send kenia and call them once this is done. Riana SOURCE OPERATOR * Telephone Encounter - Lisa Dubose - 03/09/2022 12:06 PM CST Please loki Stephanie back. She missed your call. Pat SOURCE OPERATOR * Telephone Encounter - Bettie Mesa MD - 03/09/2022 11:58 AM LIVE SOURCE OPERATOR Plan to increase from 900mg daily to 1200mg, with Li trough of 0.4. Cochrane 300mg tablets sent to pharmacy. Will plan for repeat Li trough level in 5-7 days, Li level order placed and patient was notified about mediation change and repeat lab draw. SOURCE OPERATOR * Telephone Encounter - Riana Guidry - 03/09/2022 8:02 AM CST Patient has received labs and she said the levels were low. She would like for you to call to discuss possible medications adjustments. Please call. Riana SOURCE OPERATOR documented in this encounter Plan of Treatment Not on file documented as of this encounter Procedures Procedure Name Priority Date/Time Associated Diagnosis Comments LITHIUM LEVEL Routine 03/17/2022 8:05 AM LIVE SOURCE OPERATOR Bipolar affective disorder, current episode manic with psychotic symptoms (CMS/HCC) (HCC) documented in this encounter Results * (ABNORMAL) Cochrane level (03/17/2022 8:05 AM LIVE SOURCE OPERATOR) LITHIUM 0.4(L) 0.6 - 1.2 mmol/L [facility] Blood 03/17/2022 8:05 AM LIVE SOURCE OPERATOR 03/17/2022 8:05 AM LIVE SOURCE OPERATOR Bettie Cabezas MD LAB BLOOD ORDERABLES Margie l Result [facility] [address] [place] [address] documented in this encounter Visit Diagnoses Diagnosis Bipolar affective disorder, current episode manic with psychotic symptoms (CMS/HCC) (HCC)- Primary documented in this encounter Care Teams Record Changer Assembler Relationship Specialty Start Date End Date Marlin Contreras MD PCP - General 04/07/17 10/09/23 Bettie Cabezas MD [address] [place] [address] Resident Psychiatry 03/23/22 09/23/23 documented as of this encounter
--- OUTSIDE RECORDS SUMMARY | 2024-03-25 19:36 | XMS_ITS | Encounter Summary ---
Author Organization [facility] Healthcare Address [address] [place] [address] Care Team Providers Care Plan Checker Name Role Phone Marlin Contreras MD Primary Care Provider [phone] Bettie Cabezas MD Unavailable [phone] Encounter Details Date Type Department Care Team (Late st Contact Info) Description 04/02/2022 3:45 PM MOTOR POWER CONNECTOR Office Visit [facility] Psychiatry Clinic [address] [facility] [address] [place] [address] Bettie Cabezas MD [address] [place] [address] Bipolar affective disorder, remission status [...] often do you attend chur ch or gnosticism services? Never 02/23/2022 Do you belong to [...] administer the PHQ-9) 1 02/23/2022 [facility] [place] of Occupat ional Health - Occupational Stress [...] in a usp (including now)? No 02/23/2022 Comments Unknown Sex and Gender Information Value Date Recorded Sex Assigned at Not on file Legal Sex Female 12:29 PM MOTOR POWER CONNECTOR Gender Identity Not on file Sexual Orientation Not on file documented as of this encounter Progress Notes * Bettie Traore MD - 04/02/2022 3:45 PM CST Patient ID: Stephanie Coates is a 21 y.o. female with a date of of 2000. She is presenting to the [facility] Psych[facility]ry Clinic for a follow-up appointment. She was last seen on 03/05/2022. Chief Complaint Its all just been a lot Sources of Information: Patient, who seems reliable. Chart, which is presumed to be reliable. Patient's mother, with patient, reliable HPI: Since her last visit patient was admitted to [facility] voluntarily from 03/22-03/24/22 for depression andSI. Her [...] records for this encounter. Bettie Traore MD Assistant Manager Bilingual, PGY-3 R POWER CONNECTOR documented in this encounter Plan of Treatment Not on file documented as of this encounter Procedures Procedure Name Priority Date/Time Associated Diagnosis Comments LITHIUM LEVEL Routine 04/07/2022 8:06 AM MOTOR POWER CONNECTOR Bipolar affective disorder, remission status unspecified (HCC) documented in this encounter Results * [place] level (04/07/2022 8:06 AM MOTOR POWER CONNECTOR) LITHIUM 1.0 0.6 - 1.2 mmol/L [facility] Blood 04/07/2022 8:06 AM MOTOR POWER CONNECTOR 04/07/2022 8:06 AM MOTOR POWER CONNECTOR Bettie Cabezas MD LAB BLOOD ORDERABLES Margie l Result [facility] [address] [place] [address] documented in this encounter Visit Diagnoses Diagnosis Bipolar affective disorder, remission status unspecified (HCC)- Primary documented in this encounter Care Teams Plan Checker Relationship Specialty Start Date End Date Marlin Contreras MD PCP - General 04/07/17 10/09/23 Bettie Cabezas MD [address] [facility] [address] [place] [address] Resident Psychiatry 03/23/22 09/23/23 documented as of this encounter
--- OUTSIDE RECORDS SUMMARY | 2024-03-25 19:36 | XMS_ITS | Encounter Summary ---
Author Organization [facility] Healthcare Address [address] [place] [address] Care Team Providers Care Wet End Operator Name Role Phone Marlin Contreras MD Primary Care Provider [phone] Reason for Visit * Reason Comments Follow-up MD Visit and Injecti on Encounter Details Date Type Department Care Team (Latest Contact Info) Description 03/05/2022 1:45 PM HEALTH ASSOCIATE Clinical Support [facility]- Psychiatry Clinic [address] [facility] [address] [place] [address] Bipolar affective disorder, current episode manic with psychotic symptoms (CMS/HCC) ([facility]) Social History Tobacco Use Types Packs/Day Years [...] staff should administer the PHQ-9) 1 02/23/2022 [facility] - Occupational Stress Questionnaire Answer Date [...] in a long-term (including now)? No 02/23/2022 Comments Unknown Sex and Gender Information Value Date Recorded Sex Assigned at Not on file Legal Sex Female 12:29 PM HEALTH ASSOCIATE Gender Identity Not on file Sexual Orientation Not on file documented as of this encounter Last Filed Vital Signs Vital Sign Reading Time Taken Comments Blood Pressure 136/66 03/05/2022 12:28 PM HEALTH ASSOCIATE Pulse 101 03/05/2022 12:28 PM HEALTH ASSOCIATE Temperature 36.7 ??C (98.1 ??F) 03/05/2022 12:[address] Respiratory Rate 20 03/05/2022 12:28 PM HEALTH ASSOCIATE Oxygen Saturation 100% 03/05/2022 12:28 PM HEALTH ASSOCIATE Inhaled Oxygen Concentration - - Weight 59.5 kg (131 lb 1.6 oz) 03/05/2022 12:28 PM HEALTH ASSOCIATE Height 162.6 cm (5' 4 ) 03/05/2022 12:28 PM HEALTH ASSOCIATE Body Mass Index 22.5 03/05/2022 12:28 PM HEALTH ASSOCIATE documented in this encounter Progress Notes * Sweta Alas RN - 03/05/2022 1:45 PM CST Aristada 882mg IM given Lt Gluteal. Pt tolerated well. TH ASSOCIATE documented in this encounter Plan of Treatment [...] Indications: SchizophreniaIndications:Sc hizophrenia Given 04/02/2022 4:07 PM HEALTH ASSOCIATE 882 mg Right Dorsogluteal/Butt ock Given 03/05/2022 1:12 PM HEALTH ASSOCIATE 882 mg Le ft Dorsogluteal/Buttock documented in this encounter Care Teams Wet End Operator Relationship Specialty Start Date End Date Marlin Contreras MD PCP - General 04/07/17 10/09/23 documented as of this encounter
--- OUTSIDE RECORDS SUMMARY | 2024-03-25 19:36 | XMS_ITS | Encounter Summary ---
Author Organization [facility] Healthcare Address [address] [place] [address] Care Team Providers Care Business Manager Name Role Phone Marlin Contreras MD Primary Care Provider [phone] Reason for Visit * Reason Onset Date Comments Appointment Reminder Call 03/04/2022 Encounter Details Date Type Department Care Team (Late st Contact Info) Description 03/04/[address] [facility]- Psychiatry Clinic [address] [facility] [address] [facility] [address] [place] [id number] No, Provider Appointment Reminder Call Social History [...] any clubs o r organizations such as religious groups, unions, fraternal or athletic groups, or [...] staff should administer the PHQ-9) 1 02/23/2022 [facility] of Occupat ional Health - Occupational [...] on file Legal Sex Female 12:29 PM NUT STEAMER Gender Identity Not on file Sexual Orientation Not on file documented as of this encounter Miscellaneous Notes * Telephone Encounter - Lisa Dubose - 03/04/2022 10:22 AM CST Reminder call. Wrong number. Pat STEAMER documented in this encounter Plan of Treatment [...] Zen Couch. 02/23/2022 02/24/2022 03/05/2022 3:05 AM NUT STEAMER documented as of this encounter Care Teams Business Manager Relationship Specialty Start Date End Date Marlin Contreras MD PCP - General 04/07/17 10/09/23 documented as of this encounter
--- OUTSIDE RECORDS SUMMARY | 2024-03-25 19:36 | XMS_ITS | Encounter Summary ---
Author Organization [facility] Care Team Providers Care Marble Carver Name Role Phone Unavailable Primary Care Provider Unavailabl e Encounter Details Date Type Department Care Team (Late st Contact Info) Description 03/10/2015 - 03/10/2015 11:59 PM IT SYSTEMS ENGINEER Hospital [facility]mott, Pelon Estes MD [address] [address] Social History Tobacco Use Types Packs/Day Years Used Date Smoking Tobacco: Never Comments Unknown Sex and Gender Information Value Date Recorded Sex Assigned at Not on file Legal Sex Female 12:29 PM IT SYSTEMS ENGINEER Gender Identity Not on file Sexual Orientation Not on file documented as of this encounter Plan of Treatment Not on file documented as of this encounter Visit Diagnoses Not on filedocumented in this encounter
--- OUTSIDE RECORDS SUMMARY | 2024-03-25 19:36 | XMS_ITS | Encounter Summary ---
Author Organization [facility] Healthcare Address [address] [place] [address] Care Team Providers Care Communications Maintainer Name Role Phone Marlin Contreras MD Primary Care Provider [phone] Bettie Cabezas MD Unavailable Encounter Details Date Type Department Care Team (Late st Contact Info) Description 04/14/2022 12:45 PM SALES CONTRACT ADMINISTRATOR Telemedicine [facility] Psychiatry Clinic [address] [facility] [address] [place] [address] Bettie Cabezas MD [address] [place] [address] Bipolar disorder, current episode depressed, [...] in a half-way (including now)? No 02/23/2022 Comments Unknown Sex and Gender Information Value Date Recorded Sex Assigned at Not on file Legal Sex Female 12:29 PM SALES CONTRACT ADMINISTRATOR Gender Identity Not on file Sexual Orientation [...] took place via real-time video connection with [employer]. During the visit, I was located at home and the patient was located at home in the [place] [facility]. The patient visit started at 12:51pm [...] or video visit during the COVID-19 public [facility] emergency to the patient. After being [...] as patientis on high dose Aristada injections. [place] levels are appropriate (1.0 on 04/07). Will [...] records for this encounter. Bettie Traore MD Pocket Operator, PGY-3 S CONTRACT ADMINISTRATOR documented in this encounter Plan of Treatment Not on file documented as of this encounter Visit Diagnoses Diagnosis Bipolar disorder, current episode depressed, mild or moderate severity, unspecified (HCC)- Primary documented in this encounter Care Teams Communications Maintainer Relationship Specialty Start Date End Date Marlin Contreras MD PCP - General 04/07/17 10/09/23 Bettie Cabezas MD [address] [place] [address] Resident Psychiatry 03/23/22 09/23/23 documented as of this encounter
--- OUTSIDE RECORDS SUMMARY | 2024-03-25 19:36 | XMS_ITS | Encounter Summary ---
Author Organization [facility] Healthcare Address [address] [place] [address] Care Team Providers Care Thermodynamic Physicist Name Role Phone Unavailable Primary Care Provider Unavailabl e Encounter Details Date Type Department Care Team (Latest Contact Info) Description 07/20/2016 9:19 PM CDT - 07/20/2016 9:55 PM CDT Hospital Encounter [facility] Rafa Kevin MD [address] [facility] [place] [address] Laceration without foreign body of left eyelid and periocular area, initial encounter; Walked into furniture Social History Tobacco Use Types Packs/Day Years Used Date Smoking Tobacco: Never Assessed Comments Unknown Sex and Gender Information Value Date Recorded Sex Assigned at Not on file Legal Sex Female 12:29 PM STABLE HAND Gender Identity Not on file Sexual [...] 07/20/2016 9:4 9 PM CDT Growth Chart: [facility] (Girls, 2- 20 Years) documented in this encounter Plan of Treatment Not on file documented as of this encounter Visit Diagnoses Diagnosis Laceration without foreign body of left eyelid and periocular area, initial encounter Walked into furniture documented in this encounter
--- OUTSIDE RECORDS SUMMARY | 2024-03-25 19:36 | XMS_ITS | Encounter Summary ---
Author Organization [facility] Healthcare Address [address] [place] [address] Care Team Providers Care Kickboxing Instructor Name Role Phone Marlin Contreras MD Primary Care Provider [phone] Bettie Cabezas MD Unavailable [phone] Reason for Visit * Reason Comments Follow-up MD Visit and Injecti on Encounter Details Date Type Department Care Team (Latest Contact Info) Description 04/02/2022 3:45 PM NUTRITION COORDINATOR Clinical Support [facility] [address] [facility] [address] [place] [address] Bipolar disorder, current episode depressed, [...] often do you attend chur ch or mormonism services? Never 02/23/2022 Do you [...] on file Legal Sex Female 12:29 PM NUTRITION COORDINATOR Gender Identity Not on file Sexual Orientation Not on file documented as of this encounter Last Filed Vital Signs Vital Sign Reading Time Taken Comments Blood Pressure 101/60 04/02/2022 4:15 PM NUTRITION COORDINATOR Pulse 109 04/02/2022 4:15 PM NUTRITION COORDINATOR Temperature 36.9 ??C (98.4 ??F) 04/02/2022 4:15 PM CS T Respiratory Rate - - Oxygen Saturation 100% 04/02/2022 4:15 PM NUTRITION COORDINATOR Inhaled Oxygen Concentration - - Weight 61.6 kg (135 lb 12.8 oz) 04/02/2022 4:15 PM NUTRITION COORDINATOR Height - - Body Mass Index 23.31 03/22/2022 9:45 PM NUTRITION COORDINATOR documented in this encounter Progress Notes * Sweta Alas RN - 04/02/2022 3:45 PM CST Aristada 882mg IM given Rt Gluteal. Pt tolerated well. ITION COORDINATOR documented in this encounter Plan of Treatment [...] Indications: SchizophreniaIndications:Sc hizophrenia Given 04/02/2022 4:07 PM NUTRITION COORDINATOR 882 mg Right Dorsogluteal/Butt ock Given 03/05/2022 1:12 PM NUTRITION COORDINATOR 882 mg Le ft Dorsogluteal/Buttock documented in this encounter Care Teams Kickboxing Instructor Relationship Specialty Start Date End Date Marlin Contreras MD PCP - General 04/07/17 10/09/23 Bettie Cabezas MD [address] [place] [address] Resident Psychiatry 03/23/22 09/23/23 documented as of this encounter
--- OUTSIDE RECORDS SUMMARY | 2024-03-25 19:36 | XMS_ITS | Encounter Summary ---
Author Organization [facility] Healthcare Address [address] [place] [address] Care Team Providers Care Therapist Speech Name Role Phone Marlin Contreras MD Primary Care Provider Bettie Cabezas MD Unavailable [phone] Reason for Visit * Reason Comments Suicidal Ideation * Auth/Cert Specialty Diagnoses / Procedures Referred By Contac t Referred To Contact Diagnoses Suicidal ideation Procedures N/A Referral ID Status Reason Start Date Expiration Date Visits Re quested Visits Authorized [id number] 1 1 Encounter Details Date Type Department Care Team (Latest Contact Info) Description 03/22/2022 5:50 PM DIRECTOR OF PATIENT SAFETY - 03/24/2022 10:55 AM DIRECTOR OF PATIENT SAFETY Hospital Encounter [facility] [address] [place] [address] Silvestre Sanchez MD [id number] [place] [address] [place] [id number] [facility] [address] [place] [address] Simi Rodriguez MD [address] [place] [address] Suicidal ideation (Primary Dx) Discharge Disposition: Discharge [...] often do you attend chur ch or bahai services? Never 02/23/2022 Do you [...] staff should administer the PHQ-9) 1 02/23/2022 [facility] - Occupational Stress Questionnaire Answer Date [...] in a retirement (including now)? No 02/23/2022 Comments Unknown Sex and Gender Information Value Date Recorded Sex Assigned at Not on file Legal Sex Female 12:29 PM DIRECTOR OF PATIENT SAFETY Gender Identity Not on file Sexual Orientation Not on file documented as of this encounter Last Filed Vital Signs Vital Sign Reading Time Taken Comments Blood Pressure 112/76 03/24/2022 7:00 AM DIRECTOR OF PATIENT SAFETY Pulse 100 03/24/2022 7:00 AM DIRECTOR OF PATIENT SAFETY Temperature 36.4 ??C (97.5 ??F) 03/24/2022 7:00 AM CS T Respiratory Rate 16 03/24/2022 7:00 AM DIRECTOR OF PATIENT SAFETY Oxygen Saturation 99% 03/24/2022 7:00 AM DIRECTOR OF PATIENT SAFETY Inhaled Oxygen Concentration - - Weight 60.8 kg (134 lb) 03/22/2022 9:45 PM DIRECTOR OF PATIENT SAFETY Height 162.6 cm (5' 4 ) 03/22/2022 9:45 PM DIRECTOR OF PATIENT SAFETY Body Mass Index 23 03/22/2022 9:45 PM DIRECTOR OF PATIENT SAFETY documented in this encounter Discharge Summaries * Simi Rodriguez MD - 03/24/2022 11:48 AM CST Inpatient Discharge Summary BRIEF OVERVIEW Admitting Provider: Jm Ghosh MD Discharge Provider: Simi Rodriguez MD Primary Care Physician at Discharge: Marlin Contreras MD [phone] Admission Date: 03/22/2022 Discharge Date: 03/24/2022 Admission Location: [facility] Hospital Problems/Diagnoses: Principal [...] Admission Status: Voluntary GUARDIANSHIP: No POWER OF SUPERVISOR WET ROOM ([place] ONLY): SOURCE OF INFORMATION: EHR, patient. Patient known to me from previous admission CHIEF COMPLAINT: Just depressed from going through that manic episode HISTORY OF PRESENT ILLNESS: Patient known to me from [facility] admission for manic episode with psychotic features in January 2022.She was loaded on aristada 882mg maintenance and was also discharged with thorazine 100mg TID. She was readmitted 02/23/22 to [facility], thorazine was discontinued and replaced with risperdal 2mg BID and lithium 450mg BID was started. She was then seen on 03/05/22 in [facility] resident clinic. Risperdal was discontinued and lithium [...] was admitted as a voluntary patient to [facility]. She was restarted on discharge regimen from 02/27/22. This was well tolerated and tremors jitteriness remitted with decreased dose of lithium. No SI/HI/AH/VH. No behavioral dyscontrol. She is proud that utox was negative on admission and is m otivated to refrain from substances of abuse and adhere to maintenance medications to provent another manic episode. She anticipated step down transition to [facility] and requested discharge to outpatient management [...] Time Provider Department Center 04/02/2022 3:45 PM [facility] NURSE INJECTIONS [facility] 04/02/2022 3:45 PM Bettie Traore MD [facility] CTOR OF PATIENT SAFETY documented in this encounter Medications at Time [...] Recent Results (from the past 48 hour(s)) Topstone level Collection Time: 03/22/22 6:05 PM Result Value Ref Range Topstone 1.3 (H) 0.6 - 1.2 mmol/L CBC [...] on 03/24/22 to transition to IOP program CTOR OF PATIENT SAFETY * Jamila Ochoa MSW - 03/24/2022 8:39 [...] follow up scheduled with psychiatrist, @ the [facility]. Patient will receive social support from family. Patient was agreeable with discharge plans. Patient's family member agreed with discharge plans. Prior to discharge, Patient denied thoughts of harming selfor others. Social work services are terminated at this time. Jamila Ochoa LMSW CTOR OF PATIENT SAFETY * Jamila Ochoa MSW - 03/23/2022 3:50 PM CST Pt is discharging tomorrow @ 10AM to go back to her fathers home. Medications should have arrived. AVS has been printed and placed in pt's chart. Pt's father or mother will pick her up. Jamila Ochoa LMSW CTOR OF PATIENT SAFETY * Simi Rodriguez MD - 03/23/2022 3:12 [...] emergency contact information related to inpatient stay: [facility]: [phone] (ask for Charge Nurse) Primary Physician, other healthcare professional, or site for follow up care (AVS has specific follow up appointments): PCP: Marlin Contreras MD [facility] These instructions have been provided to and reviewed with the patient/healthcare sales representative prior to discharge: Yes CTOR OF PATIENT SAFETY * Simi Lange MD - 03/23/2022 1:39 PM CST Medicine Consult Note Division of Hospital Medicine Name: Stephanie Coates Today: March 23, 2022 : 2000 Age: 21 y.o. female Admit: 03/22/2022 Bed: [id number] Subjective Chief complaint: suicidal ideations. Leukocytosis, likely [...] nursing note reviewed. Exam conducted with a brazer furnace present. Constitutional: General: She is not in [...] Recent Results (from the past 36 hour(s)) Topstone level Collection Time: 03/22/22 6:05 PM Result Value Ref Range Topstone 1.3 (H) 0.6 - 1.2 mmol/L CBC [...] agrees with it. ACC# Date Time Exam [id number] Apr 07, 2017 15:58:00 [id number] MR Knee without cont L EXAMINATION: MRI [...] MD, PHD on Apr 07 2017 4:45P [id number] CHARLTON MD, PHD LOUISA EMMANUEL M.D. FINAL REPORT The radiology attending physician has personally reviewed this study, and has reviewed and/or edited this written report and agrees with it. Attending: ORLIN EVANS Requesting: ORLIN EVANS Requesting Fax: Attending Fax: Attending ID: [id number] Requesting ID: [id number] Report To 1 ID: [id number] Report To 1 Name: , Report To 1 FAX: Xierkang Order #: I have independently reviewed and interpreted . Topstone level 1.3 WBC 13.1, Hb 12.7, Plts [...] admit. Encouraged routine OP HCM with PCP. CTOR OF PATIENT SAFETY * Patrica Elena, [facility] - 03/23/2022 12:50 PM CST Activity Therapy [...] Activities of Daily Living Deficits in Functional [place] Poor stress management skills Musical Interests Listens to Music All kinds Recommended Activity Therapy Recommended Activity Therapy Plan Appropriate for group setting CTOR OF PATIENT SAFETY * Jamila Ochoa MSW - 03/23/2022 9:09 AM CST Psychiatry Social Work Assessment Clinical Dx: Bipolar affective disorder, remission status unspecified Past Psychiatric History: Past Psychiatric History Previous Self Harm/Suicidal Attempts: No Patient currently seeing an outpatient psychiatrist? : Yes Psychiatrist Name/Number: @ the [facility] Current outpatient keycase assembler? 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 [employer]) Admission Type: Involuntary Race: Ethnicity: Gender Identity: [...] High School Diploma, Vocational Training Insurance : [employer] Medication : Sw will assist as needed [...] during assessment Support Contact Name/Number: Colten Mock [phone] (Father) Family Perspective: Unknown Past Support System : Family Parents : Lives with father Children : 0 Siblings: 1 brother Do you have a Methodist Preference or Affiliation?: No Are there any Methodist Practices that are important to maintain while admitted?: No Referral to Wealth Management Director : No Hope and Strength during Difficult Times: God Do you have Cultural Factors that are important to you?: No Family History of Mental Illness: Yes Sexual Orientation : Heterosexual Born and Raised: [place], [place] Description of Childhood: Pt reports stable [...] More than three times a week Attends Methodist Services: Never Active Member of Clubs or [...] psychiatrist? : Yes Psychiatrist Name/Number: @ the [facility] Current outpatient keycase assembler? : No Mental Health Onset: 1 year ago Previous Psychiatric Admission: Yes (Comment) (03/23/22903) Problem/Goals: Problems/Goals Problems Identified by Social Work: Mental Health Short term goals: Stabilize and Discharge Patient Stated Goals: Adjust medications [facility] Goals: Medication Compliance Social Work Plan/Intervention: Stabilize, [...] More than three times a week Attends Methodist Services: Never Active Member of Clubs or [...] appropriate level of care. Jamila Ochoa LMSW CTOR OF PATIENT SAFETY documented in this encounter H&P Notes * [...] Admission Status: Voluntary GUARDIANSHIP: No POWER OF SUPERVISOR WET ROOM ([place] ONLY): SOURCE OF INFORMATION: EHR, patient. Patient known to me from previous admission CHIEF COMPLAINT: Just depressed from going through that manic episode HISTORY OF PRESENT ILLNESS: Patient known to me from [facility] admission for manic episode with psychotic features in January 2022.She was loaded on aristada 882mg maintenance and was also discharged with thorazine 100mg TID. She was readmitted 02/23/22 to [facility], thorazine was discontinued and replaced with risperdal 2mg BID and lithium 450mg BID was started. She was then seen on 03/05/22 in [facility] resident clinic. Risperdal was discontinued and lithium [...] hospital on 03/24 and follow up with [facility]. Will order meds through [facility] [...] Not on file ASSETS: housing, interested in [facility], parental support REVIEW OF SYSTEMS: Please see TRANSPORTATION ANALYST/MD Consult note PHYSICAL EXAMINATION: Vitals: 03/23/22 0700 BP: 103/65 Pulse: 73 Resp: 17 Temp: (!) 35.6 ??C (96.1 ??F) SpO2: 98% No intake/output data recorded. No intake/output data recorded. Please see TRANSPORTATION ANALYST/MD Consult note for additional details NEUROLOGICAL EXAMINATION: Please see TRANSPORTATION ANALYST/MD Consult MENTAL STATUS EXAMINATION: General Appearance and [...] Recent Results (from the past 48 hour(s)) Topstone level Collection Time: 03/22/22 6:05 PM Result Value Ref Range Topstone 1.3 (H) 0.6 - 1.2 mmol/L CBC [...] on 03/24/22 to transition to IOP program CTOR OF PATIENT SAFETY documented in this encounter Nursing Notes * [...] points completed with patient understanding. Safety beaconremoved. CTOR OF PATIENT SAFETY * Ariana Patel RN - 03/23/2022 9:07 PM CST Patient was initially laying in bed in room. Patient got up and came to [facility] for 2000 snack and medication. Patient is [...] 8 hours. Will continue to monitor pateint. CTOR OF PATIENT SAFETY CTOR OF PATIENT SAFETY CTOR OF PATIENT SAFETY * Krystina French RN - 03/23/2022 3:31 [...] to monitor and provide support for patient. CTOR OF PATIENT SAFETY CTOR OF PATIENT SAFETY CTOR OF PATIENT SAFETY * Ariana Patel RN - 03/22/2022 11:10 PM CST Patient arrived as a voluntary admission. Patient presented to [facility] Emergency Room with complaints of Suicidal Idealations. Patient has a PMH of Bipolar. Patient arrived calm, quiet, cooperative and medication compliant. Patient admitted to feeling hopelessness, worthlessness, and helplessness. Vitals taken and are stable. Patient changed into PSC scrubs and skin assessment is normal with multiple tattoos and has a nipple ring on the right nipple.Patient belongings inventoried by [facility] and placed in Bin #21 and valuables secured with Security. Patient ambulated up the the floor with RNand Security. Patient toured unit, ate sandwich, chips, fruit and drank juice. Patient later returned to her room. MD notified of patient arrival and orders written (to continue home regime medications). ID Band, Arm Band, and [place] placed on patient. Patient has no complaints [...] 6.9 hours. Will continue to monitor patient. CTOR OF PATIENT SAFETY CTOR OF PATIENT SAFETY CTOR OF PATIENT SAFETY CTOR OF PATIENT SAFETY documented in this encounter ED Notes * [...] psychotic symptoms 02/23/2022 Cannabis dependence ([facility]) 02/02/2022 Routine general medical examination at a health care facility 02/02/2022 Bipolar affective disorder, current episode manic with psychotic symptoms ([facility]) ([facility]) 02/01/2022 No past medical history on file. [...] for screening labs and likely disposition to [facility]. Critical Care Performed by: Silvestre Sanchez MD [...] tendency for uric acid stone formation. Source: [facility] [employer].Last revised 04-07-2017 LITHIUM LEVEL - Abnormal Topstone 1.3 (*) CBC WITH AUTO DIFFERENTIAL - [...] reason for testing?->Screening prior to admission to [facility] unit (Rapid) Interpretive data: Synonyms for this test include: PCR and NAAT . This test is performed using the Re[employer] Xpert Xpress plus assay. This is a [...] . This test is performed using the Re[employer] Xpert Xpress plus assay. This is a [...] Instructions None Follow-up No follow-up provider specified. Strapping Machine Operator completed by using M*Modal Fluency Direct speaking software, therefore, transcriptionvariances of spelling and dictation may occur. Silvestre Sanchez MD 03/22/222129 CTOR OF PATIENT SAFETY * Harry Sharp RN - 03/22/2022 5:43 PM CST Pt arrives via EMS d/t SI without a plan. States she had a manic episode and is coming down from it. Recent diagnosis bipolar. Takes lithium, atarax, and a monthly shot. CTOR OF PATIENT SAFETY documented in this encounter Miscellaneous Notes * [...] feelings about self will improve Outcome: Progressing CTOR OF PATIENT SAFETY * Assessment & Plan Note - Simi Lange MD - 03/23/2022 1:38 PM DIRECTOR OF PATIENT SAFETY Associated Problem(s): Routine general medical examination at a health care facility Unremarkable exam this admit. Encouraged routine OP HCM with PCP. CTOR OF PATIENT SAFETY * Assessment & Plan Note - Simi Lange MD - 03/23/2022 1:36 PM DIRECTOR OF PATIENT SAFETY Associated Problem(s): Suicidal ideation (Resolved 03/23/2022) Seen by psychiatry, management as elsewhere. Continue lithium, atarax and aristada for bipolar type1 per psychiatry. Euthyroid. Monitoring for symptom improvement. CTOR OF PATIENT SAFETY * Assessment & Plan Note - Simi Lange MD - 03/23/2022 1:36 PM DIRECTOR OF PATIENT SAFETY Associated Problem(s): Cannabis dependence (HCC) (Resolved 12/12/2023) UDS+cannabinoids this admit. Pt endorses frequent use. Counseled on abstinence, pre-contemplational. CTOR OF PATIENT SAFETY * Plan of Care - Krystina French [...] feelings about self will improve Outcome: Progressing CTOR OF PATIENT SAFETY * Subjective & Objective - Simi Lange MD - 03/23/2022 9:18 AM DIRECTOR OF PATIENT SAFETY Medicine Consult Note Division of Hospital Medicine Name: Stephanie Coates Today: March 23, 2022 : 2000 Age: 21 y.o. female Admit: 03/22/2022 Bed: [id number] Subjective Chief complaint: suicidal ideations. Leukocytosis, likely [...] nursing note reviewed. Exam conducted with a brazer furnace present. Constitutional: General: She is not in [...] Recent Results (from the past 36 hour(s)) Topstone level Collection Time: 03/22/22 6:05 PM Result Value Ref Range Topstone 1.3 (H) 0.6 - 1.2 mmol/L CBC [...] agrees with it. ACC# Date Time Exam [id number] Apr 07, 2017 15:58:00 [id number] MR Knee without cont L EXAMINATION: MRI [...] MD, PHD on Apr 07 2017 4:45P [id number] CHARLTON MD, PHD LOUISA EMMANUEL M.D. FINAL REPORT The radiology attending physician has personally reviewed this study, and has reviewed and/or edited this written report and agrees with it. Attending: ORLIN EVANS Requesting: ORLIN EVANS Requesting Fax: Attending Fax: Attending ID: [id number] Requesting ID: [id number] Report To 1 ID: [id number] Report To 1 Name: , Report To 1 FAX: Xierkang Order #: I have independently reviewed and interpreted . Topstone level 1.3 WBC 13.1, Hb 12.7, Plts 364 Na 139, K 3.8, Cr 0.69 Normal LFTs TSH Urine HCG neg Covid-19 RNA neg 03/22 Ethanol<10, UDS neg UA cloudy, but neg TSH 1.84 (WNL) CTOR OF PATIENT SAFETY CTOR OF PATIENT SAFETY CTOR OF PATIENT SAFETY * Initial Assessments - Jamila OchoaLORRAINE - 03/23/2022 9:03 AM CST Psychiatry Social Work Assessment Clinical Dx: Bipolar affective disorder, remission status unspecified Past Psychiatric History: Past Psychiatric History Previous Self Harm/Suicidal Attempts: No Patient currently seeing an outpatient psychiatrist? : Yes Psychiatrist Name/Number: @ the [facility] Current outpatient keycase assembler? 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 [employer]) Admission Type: Involuntary Race: Ethnicity: Gender Identity: [...] during assessment Support Contact Name/Number: Colten Mock [phone] (Father) Family Perspective: Unknown Past Support System : Family Parents : Lives with father Children : 0 Siblings: 1 brother Do you have a Methodist Preference or Affiliation?: No Are there any Methodist Practices that are important to maintain while admitted?: No Referral to Wealth Management Director : No Hope and Strength during Difficult Times: God Do you have Cultural Factors that are important to you?: No Family History of Mental Illness: Yes Sexual Orientation : Heterosexual Born and Raised: [place], [place] Description of Childhood: Pt reports stable [...] More than three times a week Attends Methodist Services: Never Active Member of Clubs or [...] psychiatrist? : Yes Psychiatrist Name/Number: @ the [facility] Current outpatient keycase assembler? : No Mental Health Onset: 1 year ago Previous Psychiatric Admission: Yes (Comment) (03/23/22903) Problem/Goals: Problems/Goals Problems Identified by Social Work: Mental Health Short term goals: Stabilize and Discharge Patient Stated Goals: Adjust medications [facility] Goals: Medication Compliance Social Work Plan/Intervention: Stabilize, [...] More than three times a week Attends Methodist Services: Never Active Member of Clubs or [...] appropriate level of care. Jamila Ochoa LMSW CTOR OF PATIENT SAFETY * Plan of Care - Ariana Patel [...] feelings about self will improve Outcome: Progressing CTOR OF PATIENT SAFETY documented in this encounter Plan of Treatment Not on file documented as of this encounter Procedures Procedure Name Priority Date/Time Associated Diagnosis Comments POCT HCG, URINE Routine 03/22/2022 7:58 PM DIRECTOR OF PATIENT SAFETY COVID-19 CORONAVIRUS RNA Routine 03/22/2022 6:22 PM DIRECTOR OF PATIENT SAFETY URINALYSIS AND REFLEX TO MICROSCOPIC AND CULTURE STAT 03/22/2022 6:22 PM DIRECTOR OF PATIENT SAFETY DRUGS OF ABUSE SCREEN, URINE WITHOUT CONFIRMATION STAT 03/22/2022 6:22 PM DIRECTOR OF PATIENT SAFETY EGFR STAT 03/22/2022 6:05 PM DIRECTOR OF PATIENT SAFETY DIFFERENTIAL AUTO STAT 03/22/2022 6:0 5 PM DIRECTOR OF PATIENT SAFETY THYROID FUNCTION CASCADE Routine 03/22/2022 6:05 PM DIRECTOR OF PATIENT SAFETY CBC WITH AUTO DIFFERENTIAL STAT 03/22/2022 6:05 PM DIRECTOR OF PATIENT SAFETY ETHANOL STAT 03/22/2022 6:05 PM DIRECTOR OF PATIENT SAFETY LITHIUM LEVEL STAT 03/22/2022 6:05 PM DIRECTOR OF PATIENT SAFETY COMPREHENSIVE METABOLIC PANEL STAT 03/22/2022 6:05 PM DIRECTOR OF PATIENT SAFETY [facility] CRITICAL C[facility] ILL/INJURED PATIENT INIT 30-74 MIN Routine 03/22/2022 5:57 PM DIRECTOR OF PATIENT SAFETY documented in this encounter Results * POCT hCG, urine (03/22/2022 7:58 PM DIRECTOR OF PATIENT SAFETY) HCG, ur, POC Negative Lot Number [id number] QC Backgroud Clear Acceptable QC Control Line Acceptable Urine 03/22/2022 7:58 PM DIRECTOR OF PATIENT SAFETY Silvestre Sanchez MD POINT OF CARE TEST ORDERABLES Fi nal Result * COVID-19 Coronavirus RNA Nasopharyngeal (03/22/2022 6:22 PM DIRECTOR OF PATIENT SAFETY) COVID-19 RNA Negative Negative [facility] Nasopharyngeal 03/22/2022 6: 22 PM DIRECTOR OF PATIENT SAFETY 03/22/2022 6:31 PM DIRECTOR OF PATIENT SAFETY Narrative [facility] - 03/22/2022 7:22 PM DIRECTOR OF PATIENT SAFETY Is the patient experiencing any symptoms consistent with COVID (eg. Fever, cough, shortness of breath)?->No What is the reason for testing?->Screening prior to admission to [facility] unit??(Rapid) ??Interpretive data: Synonyms for this test include: PCR and NAAT . ??This test is performed using the Re[employer] Xpert Xpress plus assay. This is a [...] . ??This test is performed using the [employer] Xpert Xpress plus assay. This is a [...] MICROBIOLOGY - GENERAL ORDER LINH Final Result [facility] [place] [address] * (ABNORMAL) Urinalysis reflex to microscopic and culture Urine (03/22/2022 6:22 PM DIRECTOR OF PATIENT SAFETY) Color, ur Straw Yellow [facility] Clarity, ur Cloudy(A) Clear [facility] Specific gravity, ur 1.009 1.003 - 1.030 [facility] pH, urine 7.5 [facility] Protein, ur ql Negative Negative [facility] Glucose, ur ql Negative Negative [facility] Ketones, ur Negative Negative [facility] Bilirubin, ur Negative Negative [facility] Blood, ur Negative Negative [facility] Urobilinogen, ur <2.0 <2.0 mg/dL [facility] Nitrite, ur Negative Negative [facility] Leukocyte esterase, ur Negative Negative [facility] UA reflex comment Reflex conditions for microscopic UA and culture not met. [facility] Urine 03/22/2022 6:22 PM DIRECTOR OF PATIENT SAFETY 03/22/2022 6:29 PM DIRECTOR OF PATIENT SAFETY Narrative [facility] - 03/22/2022 6:52 PM DIRECTOR OF PATIENT SAFETY ?? Urine pH is affected by diet, medications, systemic acid-base disturbances, and renal tubular function. ??pH may affect urinary stone formation. ??For example, urine pH below 6.0 may help reduce the tendency for calcium phosphate stones and pH greater than 6.0 may reduce the tendency for uric acid stone formation. Source: [facility] [employer]. Last revised 04-07-2017 us Silvestre Sanchez MD LAB MICROBIOLOGY - GENERAL ORDER LINH Final Result [facility] [place] [address] * Drugs of Abuse Screen, Urine without Confirmation (03/22/2022 6:22 PM DIRECTOR OF PATIENT SAFETY) [facility] Amphetamine, ur Not Detected CutOff 500ng/mL [facility] Comment: Interpretive Data - Amphetamines: ??Samples containing greater than 500 ng/mL d-methamphetamine ??or other cross-reacting amphetamine compounds are reported as positive. ??Amphetamine immunoassays are subject to significant false positive rates due to cross-reactivity of non-amphetamine drugs. Current Interpretive Data was last reviewed 2018. Barbiturates, ur Not Detected CutOff 200ng/mL [facility] Comment: Interpretive Data - Barbiturates: ??Samples containing greater than 200 ng/mL secobarbital or other cross-reacting barbiturate compounds are reported as positive. ??False positive and false negative results are possible. Current Interpretive Data was last reviewed 2018. Benzodiazepines, ur Not Detected CutOff 100ng/mL [facility] Comment: Interpretive Data - Benzodiazepines: ??Samples containing greater than 100 ng/mL nordiazepam or other cross-reacting compounds are reported as positive. ?? False positive and false negative results are possible. ?? Current Interpretive Data was last reviewed 2018. Cannabinoids, ur Not Detected CutOff 50 ng/mL [facility] Cocaine, ur Not Detected CutOff 150ng/mL [facility] Comment: Interpretive Data - Cocaine: ??Samples containing greater than 150 ng/mL benzoylecgonine or other cross-reacting compounds are reported as positive. False positive and false negative results are possible. Current Interpretive Data was last reviewed 2018. Fentanyl, Ur Not Detected Cutoff 1 ng/mL [facility] Comment: Interpretive Data - Fentanyls: ??Samples containing greater than 1 ng/mL fentanyl or other cross-reacting fentanyl compounds are reported as detected. ??False positive and false negative results are possible. Current Interpretive Data was last reviewed 2018. Methadone, ur Not Detected CutOff 300ng/mL [facility] Comment: Interpretive Data - Methadone: ??Samples containing greater than 300 ng/mL d,l-methadone or other cross-reacting compounds are reported as positive. ??False positive and false negative results are possible. Current Interpretive Data was last reviewed 2018. Opiates, ur Not Detected CutOff 300ng/mL [facility] Comment: Interpretive Data - Opiates: ??Samples containing greater than 300 ng/mL morphine or other cross-reacting compounds are reported as positive. ??False positive and false negative results are possible. Current Interpretive Data was last reviewed 2018. Oxycodone, ur Not Detected CutOff 100ng/mL [facility] Comment: Interpretive Data - Oxycodone: ??Samples containing greater than 100 ng/mL oxycodone or other cross-reacting compounds are reported as positive. ??False positive and false negative results are possible. ?? Current Interpretive Data was last reviewed 2018. Phencyclidine, ur Not Detected CutOff 25 ng/mL [facility] Comment: Interpretive Data - Phencyclidine: ??Samples containing greater than 25 ng/mL phencyclidine or other cross-reacting compounds are reported as positive. ??False positive and false negative results are possible. ?? Current Interpretive Data was last reviewed 2018. Urine Creatinine 35 mg/dL [facility] Comment: Interpretive Data Urine Creatinine: < 10 mg/dL is extremely dilute = or > 10 but < 20 mg/dL is dilute = or > 20 mg/dL is normal Current Interpretive Data was last revised on 2017. Urine 03/22/2022 6:22 PM DIRECTOR OF PATIENT SAFETY 03/22/2022 6:30 PM DIRECTOR OF PATIENT SAFETY Narrative JAY SINGH - 03/22/2022 8:08 PM DIRECTOR OF PATIENT SAFETY Drug of Abuse screening is performed by immunoassay for medical purposes only. ??This is not to be used for Pain Management purposes. us Silvestre Sanchez MD LAB URINE ORDERABLES Edited Resu lt - Final [facility] [place] [address] * eGFR (03/22/2022 6:05 PM DIRECTOR OF PATIENT SAFETY) eGFR >90 90 - 130 mL/min/1. [address] [facility] Comment: Interpretive Data Reference Interval [...] reviewed 2021. Blood 03/22/2022 6:0 5 PM DIRECTOR OF PATIENT SAFETY 03/22/2022 6:47 PM DIRECTOR OF PATIENT SAFETY us Silvestre Sanchez MD LAB BLOOD ORDERABLES Final Resul t [facility] [place] [address] * (ABNORMAL) Differential, auto (03/22/2022 6:05 PM DIRECTOR OF PATIENT SAFETY) Neutrophil abs 8.9(H) 1.7 - 6.5 K/cumm [facility] Imm gran abs 0.1 0.0 - 0.1 K/cumm [facility] Lymphocyte abs 2.9 0.8 - 3.3 K/cumm [facility] Monocyte abs 1.0(H) 0.2 - 0.8 K/cumm [facility] Eosinophil abs 0.2 0.0 - 0.5 K/cumm [facility] Basophil abs 0.1 0.0 - 0.1 K/cumm [facility] Neutrophil pct 67.7 % [facility] Comment: Interpretive Data Percent cell count reference ranges are not reported, since discordance with absolute values may lead to misinterpretation of CBC data. Current Interpretive Data was last revised on 2017. Imm gran pct 0.5 % [facility] Comment: Interpretive Data Percent cell count reference ranges are not reported, since discordance with absolute values may lead to misinterpretation of CBC data. Current Interpretive Data was last revised on 2017. Lymphocyte pct 22.0 % [facility] Comment: Interpretive Data Percent cell count reference ranges are not reported, since discordance with absolute values may lead to misinterpretation of CBC data. Current Interpretive Data was last revised on 2017. Monocyte pct 7.8 % [facility] Comment: Interpretive Data Percent cell count reference ranges are not reported, since discordance with absolute values may lead to misinterpretation of CBC data. Current Interpretive Data was last revised on 2017. Eosinophil pct 1.6 % [facility] Comment: Interpretive Data Percent cell count reference ranges are not reported, since discordance with absolute values may lead to misinterpretation of CBC data. Current Interpretive Data was last revised on 2017. Basophil pct 0.4 % [facility] Comment: Interpretive Data Percent cell count reference ranges are not reported, since discordance with absolute values may lead to misinterpretation of CBC data. Current Interpretive Data was last revised on 2017. Blood 03/22/2022 6:05 PM DIRECTOR OF PATIENT SAFETY 03/22/2022 6:47 PM DIRECTOR OF PATIENT SAFETY Silvestre Sanchez MD LAB BLOOD ORDERABLES Final Resul t Performing Organization Address [facility] Co de Phone Number [facility] [place] [address] * TSH reflex to free T4 (03/22/2022 6:05 PM DIRECTOR OF PATIENT SAFETY) TSH 1.84 0.30 - 4.20 mcIUnit/mL [facility] Blood 03/22/2022 6:05 PM DIRECTOR OF PATIENT SAFETY 03/22/2022 6:47 PM DIRECTOR OF PATIENT SAFETY Silvestre Sanchez MD LAB BLOOD ORDERABLES Final Resul t Performing Organization Address [facility] de Phone Number [facility] [place] [address] * Ethanol (03/22/2022 6:05 PM DIRECTOR OF PATIENT SAFETY) Pathologist [facility] Ethanol <10 <=10 mg/dL [facility] Comment: Interpretive Data Legal limit of intoxication > or = 80 mg/dL Levels > or = 400 mg/dL are potentially TOXIC. Current interpretive data was last revised on 2018. Blood (Blood, Venous) 03/22/2022 6:05 PM DIRECTOR OF PATIENT SAFETY 03/22/2022 6:47 PM DIRECTOR OF PATIENT SAFETY Silvestre Sanchez MD LAB BLOOD ORDERABLES Final Resul t Performing Organization Address [facility] [place] [address] * (ABNORMAL) Comprehensive metabolic panel (03/22/2022 6:05 PM DIRECTOR OF PATIENT SAFETY) Sodium 139 135 - 145 mmol/L [facility] Potassium, pl 3.8 3.3 - 4.9 mmol/L [facility] Chloride 104 97 - 110 mmol/L [facility] CO2 25 22 - 32 mmol/L [facility] Anion gap 10 2 - 15 mmol/L [facility] BUN 7(L) 8 - 25 mg/dL [facility] Creatinine 0.69 0.60 - 1.10 mg/dL [facility] Glucose 84 70 - 199 mg/dL [facility] Comment: Interpretive Data Fasting glucose >/= [...] 2017. Calcium 9.7 8.5 - 10.3 mg/dL [facility] Bilirubin, total 0.3 0.1 - 1.2 mg/dL [facility] Protein, pl 7.2 6.5 - 8.5 g/dL [facility] Albumin 4.6 3.5 - 5.0 g/dL [facility] Alk phos 86 40 - 130 Units/L [facility] ALT 13 7 - 45 Units/L [facility] AST 16 10 - 45 Units/L [facility] Blood 03/22/2022 6:05 PM DIRECTOR OF PATIENT SAFETY 03/22/2022 6:47 PM DIRECTOR OF PATIENT SAFETY us Silvestre Sanchez MD LAB BLOOD ORDERABLES Final Resul t [facility] Department [place] [address] * (ABNORMAL) CBC with auto differential (03/22/2022 6:05 PM DIRECTOR OF PATIENT SAFETY) [facility] WBC 13.1(H) 3.8 - 9.9 K/cumm [facility] Hgb 12.7 11.9 - 15.5 g/dL [facility] Hct 37.7 35.6 - 45.5 % [facility] Plt 364 150 - 400 K/cumm [facility] MPV 8.9(L) 9.1 - 12.3 fL [facility] RBC 4.02 3.90 - 5.20 M/cumm [facility] MCV 93.8 81.3 - 96.4 fL [facility] MCH 31.6 27.1 - 33.3 pg [facility] MCHC 33.7 32.3 - 35.7 g/dL [facility] RDW CV 11.9 11.1 - 14.9 % [facility] RDW SD 41.3 35.7 - 48.1 fL [facility] NRBC abs 0.00 0.00 - 0.01 K/cumm [facility] Blood 03/22/2022 6:05 PM DIRECTOR OF PATIENT SAFETY 03/22/2022 6:47 PM DIRECTOR OF PATIENT SAFETY us Silvestre Sanchez MD LAB BLOOD ORDERABLES Final Resul t Performing Organization Address City/[facility]/ZIP Co de Phone Number [facility] Department [place] [employer] [place] [address] * (ABNORMAL) Topstone level (03/22/2022 6:05 PM DIRECTOR OF PATIENT SAFETY) Topstone 1.3(H) 0.6 - 1.2 mmol/L [facility] Blood 03/22/2022 6:05 PM DIRECTOR OF PATIENT SAFETY 03/22/2022 6:47 PM DIRECTOR OF PATIENT SAFETY us Silvestre Sanchez MD LAB BLOOD ORDERABLES Final Resul t [facility] [place] [address] * [place] CRITICAL CARE ILL/INJURED PATIENT INIT 30-74 MIN (03/22/2022 5:57 PM DIRECTOR OF PATIENT SAFETY) Narrative Silvestre Sanchez MD - 03/22/2022 5:57 PM DIRECTOR OF PATIENT SAFETY Silvestre Sanchez MD ? 03/22/2022 ??9:30 PM [...] Tue03/22/22 at 2247 Given 03/22/2022 11:06 PM DIRECTOR OF PATIENT SAFETY 50 mg lithium ER (ESKALITH) extended release tablet 450 mg 450 mg, oral, 2 times daily with meals (bkfst, dinner), First dose (after last modification) on Tue03/24/22 at 0800 Given 03/24/2022 8:34 AM DIRECTOR OF PATIENT SAFETY 450 mg lithium ER (LITHOBID) extended release tablet 1,200 mg 1,200 mg, oral, Daily, First dose on Tue03/23/22 at 0900 Given 03/23/2022 8:38 AM DIRECTOR OF PATIENT SAFETY 1,200 mg nicotine polacrilex (NICORETTE) gum 2 mg 2 mg, mouth/throat, Every 2 hours PRN, nicotine withdrawal symptoms, Starting on Tue03/22/22 at 2247, Instruct patients to chew into gum and then place between the cheek and gum to enhance absorption. Given 03/23/2022 9:01 PM DIRECTOR OF PATIENT SAFETY 2 mg risperiDONE (RisperDAL) tablet 2 mg 2 mg, oral, 2 times daily, First dose (after last modification) on Tue03/23/22 at 1000 Given 03/24/2022 8:34 AM DIRECTOR OF PATIENT SAFETY 2 mg Given 03/23/2022 9:01 PM DIRECTOR OF PATIENT SAFETY 2 mg traZODone (DESYREL) tablet 100 mg 100 mg, oral, Nightly PRN, sleep, Starting on Tue03/23/22 at 0927 traZODone (DESYREL) tablet 50 mg 50 mg, oral, Nightly PRN, sleep, Starting on Tue03/22/22 at 2248 Given 03/22/2022 11:06 PM DIRECTOR OF PATIENT SAFETY 50 mg documented in this encounter Discontinued [...] Recently Administered Medications Times are shown in DIRECTOR OF PATIENT SAFETY. Scheduled Medication Order 03/22/2022 03/23/2022 03/24/2022 lithium [...] Tue03/22/22 at 2247 2306 (Given - Provider: Ariaan Patel, SAGAR) nicotine polacrilex (NICORETTE) gum 2 [...] 03/22/2022 documented in this encounter Care Teams Therapist Speech Relationship Specialty Start Date End Date Marlin Contreras MD PCP - General 04/07/17 10/09/23 Bettie Cabezas MD [address] [place] [address] Resident Psychiatry 03/23/22 09/23/23 documented as of this encounter
--- OUTSIDE RECORDS SUMMARY | 2024-03-25 19:36 | XMS_ITS | Encounter Summary ---
Author Organization [facility] Healthcare Address [address] [place] [address] Care Team Providers Care Counter Server Name Role Phone Marlin Contreras MD Primary Care Provider [phone] Bettie Cabezas MD Unavailable [phone] Encounter Details Date Type Department Care Team (Late st Contact Info) Description 07/02/2022 2:45 PM CDT Office Visit [facility]- Psychiatry Clinic [address] [facility] [address] [place] [address] Bettie Cabezas MD [address] [address] [place] [address] Routine adult health maintenance (Primary [...] often do you attend chur ch or pentecostalism services? Never 02/23/2022 Do you [...] administer the PHQ-9) 1 02/23/2022 [facility] of Occupat ional Health - Occupational Stress [...] in a penitentiary (including now)? No 02/23/2022 Comments Unknown Sex and Gender Information Value Date Recorded Sex Assigned at Not on file Legal Sex Female 12:29 PM RADIO COMMUNICATION COORDINATOR Gender Identity Not on file Sexual [...] Body Mass Index 24.37 04/30/2022 3:22 PM RADIO COMMUNICATION COORDINATOR documented in this encounter Ordered Prescriptions Prescription [...] 2000. She is presenting to the [facility] Psych[facility]ry Clinic for a follow-up [...] taking 80mg of Latuda and her nightly Baneberry. Denied side effects. No reported substance use. [...] mild or moderate severity, unspecified (HCC) - Baneberry level; Future Other orders - lurasidone (LATUDA) [...] records for this encounter. Bettie Traore MD [employer] Smoking Pipe, PGY-3 documented in this encounter Plan of [...] A1C 4.9 <5.7 % of total [facility] Comment: For the purpose of screening for the presence of diabetes: <5.7% ? Consistent with the absence of diabetes 5.7-6.4% ?Consistent with increased risk for diabetes ?(prediabetes) > or =6.5% ??Consistent with diabetes This assay result is consistent with a decreased risk of diabetes. Currently, no consensus exists regarding use of hemoglobin A1c for diagnosis of diabetes in children. According to [place] [employer] Association (ADA) guidelines, hemoglobin A1c <7.0% represents optimal control in non- diabetic patients. Different metrics may apply to specific patient populations. Standards of Medical Care in Diabetes(ADA). ?? Blood 07/07/2022 8:03 AM CDT 07/07/2022 8:05 AM CDT [facility] - 07/08/2022 6:38 AM CDT FASTING:YES FASTING: YES us Btetie Cabezas MD LAB BLOOD ORDERABLES Margie hendrix Result [facility] [address] [phone] * Lipid panel (07/07/2022 8:03 AM CDT) [...] LDL-C. Robby RAMOS et al. ANIKET. 2013;310(19): 9162-0214 (http://education.[employer]/faq/UKV038) Chol/HDL ratio 2.1 <5.0 (calc) [facility] [...] LAB BLOOD ORDERABLES Margie l Result [facility] [address] [address] * Baneberry level (07/07/2022 8:03 AM CDT) LITHIUM 0.7 0.6 - 1.2 mmol/L [facility] Blood 07/07/2022 8:03 AM CDT 07/07/2022 8:05 AM CDT Narrative [facility] - 07/08/2022 6:38 AM CDT FASTING:YES FASTING: YES Bettie Cabezas MD LAB BLOOD ORDERABLES Margie simeon Result [facility] [address] [place] [address] documented in this encounter Visit Diagnoses Diagnosis [...] documented as of this encounter Care Teams Counter Server Relationship Specialty Start Date End Date Marlin Contreras MD PCP - General 04/07/17 10/09/23 Bettie Cabezas MD [address] [place] [address] Resident Psychiatry 03/23/22 09/23/23 documented as of this encounter
--- OUTSIDE RECORDS SUMMARY | 2024-03-25 19:36 | XMS_ITS | Encounter Summary ---
Author Organization [facility] Healthcare Address [address] [place] [address] Care Team Providers Care Ip Paralegal Name Role Phone Marlin Contreras MD Primary Care Provider [phone] Bettie Cabezas MD Unavailable [phone] Encounter Details Date Type Department Care Team (Late st Contact Info) Description 03/24/2022 Orders Only [facility]- Psychiatry Clinic [address] [facility] [address] [place] [address] Bettie Cabezsa MD [address] [place], [place] [id number] Bipolar affective disorder, current episode manic with [...] the PHQ-9) 1 02/23/2022 [facility] of Occupat ional Health - Occupational Stress [...] file Legal Sex Female 12:29 PM SUPERVISOR METAL FABRICATING Gender Identity Not on file Sexual Orientation Not on file documented as of this encounter Progress Notes * Bettie Traore MD - 03/24/2022 12:10 PM CST Ordered repeat Li level for patient before she is seen in clinic next week, recent admission Li waslowered back to 900mg daily. RVISOR METAL FABRICATING documented in this encounter Plan of Treatment Not on file documented as of this encounter Procedures Procedure Name Priority Date/Time Associated Diagnosis Comments LITHIUM LEVEL Routine 03/30/2022 8:05 AM SUPERVISOR METAL FABRICATING Bipolar affective disorder, current episode manic with psychotic symptoms (CMS/HCC) (HCC) documented in this encounter Results * (ABNORMAL) [place] level (03/30/2022 8:05 AM SUPERVISOR METAL FABRICATING) LITHIUM 0.3(L) 0.6 - 1.2 mmol/L [facility] Blood 03/30/2022 8:05 AM SUPERVISOR METAL FABRICATING 03/30/2022 8:06 AM SUPERVISOR METAL FABRICATING Bettie Cabezas MD LAB BLOOD ORDERABLES Margie l Result [facility] [address] [place] [address] documented in this encounter Visit Diagnoses Diagnosis Bipolar affective disorder, current episode manic with psychotic symptoms (CMS/HCC) (HCC)- Primary documented in this encounter Care Teams Ip Paralegal Relationship Specialty Start Date End Date Marlin Contreras MD PCP - General 04/07/17 10/09/23 Bettie Cabezas MD [facility] [address] [place] [address] Resident Psychiatry 03/23/22 09/23/23 documented as of this encounter
--- OUTSIDE RECORDS SUMMARY | 2024-03-25 19:36 | XMS_ITS | Encounter Summary ---
Author Organization [facility] Facility Care Team Providers Care Registered Massage Therapist Name Role Phone Unavailable Primary Care Provider Unavailabl e Encounter Details Date Type Department Care Team (Late st Contact Info) Description 02/03/2015 12:54 PM POLICE CLERK - 02/03/2015 4:00 PM POLICE CLERK Hospital Encounter [facility] Sharron, Orlin Estes MD [address] [address] Pain in left knee; Injury; Activity involving soccer Social History Tobacco Use Types Packs/Day Years Used Date Smoking Tobacco: Never Comments Unknown Sex and Gender Information Value Date Recorded Sex Assigned at Not on file Legal Sex Female 12:29 PM POLICE CLERK Gender Identity Not on file Sexual Orientation Not on file documented as of this encounter Plan of Treatment Not on file documented as of this encounter Procedures Procedure Name Priority Date/Time Associated Diagnosis Comments KNEE RADIOGRAPHY, FRONTAL (AP), LATERAL, OBLIQUE Routine 02/03/2015 1:09 PM POLICE CLERK documented in this encounter Results * KNEE RADIOGRAPHY, FRONTAL (AP), LATERAL, OBLIQUE (02/03/2015 1:09 PM POLICE CLERK) Anatomical Region Laterality Modality N/A Radiographic María ging 02/03/2015 1:09 PM POLICE CLERK Narrative 02/03/2015 1:32 PM POLICE CLERK ALBERTO ALVARENGA M.D. FINAL REPORT ACC# ??Date Time ??Exam [id number] Feb 03, 2015 13:09:00 [id number] Knee 3 views L EXAMINATION: ? Left [...] ALVARENGA M.D. on Feb 03 2015 ??1:32P [id number] Procedure Note Provider, MD Vani - 07/23/2016 ALBERTO ALVARENGA M.D. FINAL REPORT ACC# Date Time Exam [id number] Feb 03, 2015 13:09:00 07158 Knee 3 views L EXAMINATION: Left knee, [...] ALVARENGA M.D. on Feb 03 2015 1:32P [id number] Historical Provider [employer] XR PROCEDURES Final R esult documented in this encounter Visit Diagnoses Diagnosis Pain in left knee Injury Injury, other and unspecified, unspecified site Activity involving soccer documented in this encounter
--- OUTSIDE RECORDS SUMMARY | 2024-03-25 19:36 | XMS_ITS | Encounter Summary ---
Author Organization [facility] Healthcare Address [address] [place] [address] Care Team Providers Care Air Conditioning Equipment Mechanic Name Role Phone Marlin Contreras MD Primary Care Provider [phone] Bettie Cabezas MD Unavailable [phone] Encounter Details Date Type Department Care Team (Late st Contact Info) Description 05/19/2022 2:15 PM PRICING INTERN Telemedicine [facility]- Psychiatry Clinic [address] [facility] [address] [place] [address] Bettie Cabezas MD [address] [place] [address] Bipolar disorder, current episode depressed, [...] often do you attend chur ch or taoism services? Never 02/23/2022 Do you belong to any clubs o r organizations such as yarsani groups, unions, fraternal or athletic groups, or [...] a long term (including now)? No 02/23/2022 Comments Unknown Sex and Gender Information Value Date Recorded Sex Assigned at Not on file Legal Sex Female 12:29 PM PRICING INTERN Gender Identity Not on file Sexual [...] of 2000. She is presenting to the [facility] Psychiatry Clinic for a follow-up appointment. She was last seen on 05/05/2021. This was a telemedicine visit with Stephanie Coates alone which took place via real-time video connection with Agent Ace. During the visit, I was located at home and the patient was located at home in the state of [place]. The patient visit started at 2:14 and [...] medical recordsfor this encounter. Bettie Traore MD Senior Business Objects Developer, PGY-3 ING INTERN documented in this encounter Plan of [...] documented as of this encounter Care Teams Air Conditioning Equipment Mechanic Relationship Specialty Start Date End Date Marlin Contreras MD PCP - General 04/07/17 10/09/23 Bettie Cabezas MD [address] [place] [address] Resident Psychiatry 03/23/22 09/23/23 documented as of this encounter
--- OUTSIDE RECORDS SUMMARY | 2024-03-25 19:36 | XMS_ITS | Encounter Summary ---
Author Organization [facility] Healthcare Address [address] [place] [address] Care Team Providers Care Production Machine Operator Name Role Phone Marlin Contreras MD Primary Care Provider [phone] Reason for Visit * Reason Onset Date Comments SW QUESTIONS 02/15/2022 Encounter Details Date Type Department Care Team (Late st Contact Info) Description 02/15/2022 Telephone [facility]ry [facility] [address] [facility] [address] [place] [id number] No, Physician SW QUESTIONS Social History Tobacco [...] often do you attend chur ch or anglican services? Never 02/23/2022 Do you belong to [...] PHQ-9) 1 02/23/2022 [facility] Questionnaire Answer Date [...] in a snf (including now)? No 02/23/2022 Comments Unknown Sex and Gender Information Value Date Recorded Sex Assigned at Not on file Legal Sex Female 12:29 PM HR ASSISTANT Gender Identity Not on file Sexual Orientation Not on file documented as of this encounter Miscellaneous Notes * Telephone Encounter - Riana Guidry - 02/15/2022 1:04 PM CST Has patient been referred to another community provider (besides [facility]) at discharge? NO If so, name of provider or agency. 2. Did patient have a prior psychiatric provider before admission? YES If so, is patient being referred back to them? Name: UNABLE TO GO BACK 3. What is the patient's plan for transportation to the appointment? HAS OWN CAR 4. What is a good contact phone number for this patient? [place] [phone] (Father) RIANA ASSISTANT documented in this encounter Plan of Treatment Not on file documented as of this encounter Visit Diagnoses Not on filedocumented in this encounter Care Teams Production Machine Operator Relationship Specialty Start Date End Date Marlin Contreras MD PCP - General 04/07/17 10/09/23 documented as of this encounter
--- OUTSIDE RECORDS SUMMARY | 2024-03-25 19:36 | XMS_ITS | Encounter Summary ---
Author Organization [facility] Healthcare Address [address] [place] [address] Care Team Providers Care Archival Records Clerk Name Role Phone Marlin Contreras MD Primary Care Provider [phone] Bettie Cabezas MD Unavailable [phone] Reason for Visit * Reason Onset Date Comments Med Management 06/01/2022 Follow-up 06/02/2022 Encounter Details Date Type Department Care Team (Late st Contact Info) Description 06/01/2022 Telephone - Psychiatry Clinic [address] [facility] [address] [place] [address] Bettie Cabezas MD [address] [place] [address] Med Management; Follow-up Social History [...] any clubs o r organizations such as voodoo groups, unions, fraternal or athletic groups, or [...] administer the PHQ-9) 1 02/23/2022 [facility] - Occupational [...] in a detention (including now)? No 02/23/2022 Comments Unknown Sex and Gender Information Value Date Recorded Sex Assigned at Not on file Legal Sex Female 12:29 PM PIECE WORK CHECKER Gender Identity Not on file Sexual Orientation Not on file documented as of this encounter Miscellaneous Notes * Telephone Encounter - Riana Guidry - 06/02/2022 1:07 PM CST Patient called back. Message was read and she voiced understanding. Riana E WORK CHECKER * Telephone Encounter - Emily Dupont MD - 06/01/2022 12:39 PM PIECE WORK CHECKER Attempted to call patient, no answer. Latuda does not come in 100 mg capsules. Per chart, patient has active scripts for Latuda 80 mg + 20 mg. E WORK CHECKER * Telephone Encounter - Riana Guidry - 06/01/2022 10:59 AM CST Patient mother would like to know if she could get just an order of lurasidone (LATUDA) 100 mg. Shestated every time she picks it up. It's costing her $50 bucks for just one of the dose. If you needto speak with anyone. You can call the patient. Riana E WORK CHECKER documented in this encounter Plan of Treatment Not on file documented as of this encounter Visit Diagnoses Not on filedocumented in this encounter Care Teams Archival Records Clerk Relationship Specialty Start Date End Date Marlin Contreras MD PCP - General 04/07/17 10/09/23 Bettie Cabezas MD [address] [place] [address] Resident Psychiatry 03/23/22 09/23/23 documented as of this encounter
--- OUTSIDE RECORDS SUMMARY | 2024-03-25 19:36 | XMS_ITS | Encounter Summary ---
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 Medication Applied 02/23/2022 8:52 AM CELLOPHANER 1 patch Left Shoulder nicotine polacrilex (NICORETTE) gum 2 mg 2 mg, mouth/throat, Every 2 hours PRN, nicotine withdrawal symptoms, Starting on Tue02/23/22 at 1450, Instruct patients to chew into gum and then place between the cheek and gum to enhance absorption. Given 02/27/2022 12:43 AM CELLOPHANER 2 mg Given 02/26/2022 8:46 PM CELLOPHANER 2 mg Given 02/26/2022 6:09 PM CELLOPHANER 2 mg risperiDONE (RisperDAL M-TABS) disintegrating tablet 2 mg 2 mg, sublingual, 2 times daily, First dose on Tue02/24/22 at 1030, For 6 doses Given 02/26/2022 8:17 PM CELLOPHANER 2 mg Given 02/26/2022 8:18 AM CELLOPHANER 2 mg Given 02/25/2022 8:24 PM CELLOPHANER 2 mg risperiDONE (RisperDAL M-TABS) disintegrating tablet 2 mg 2 mg, sublingual, Nightly, First dose on 02/27/22 at 2100 traZODone (DESYREL) tablet 50 mg 50 mg, oral, Nightly PRN, sleep, Starting on Tue02/23/22 at 1255 Given 02/26/2022 9:58 PM CELLOPHANER 50 mg Given 02/25/2022 8:25 PM CELLOPHANER 50 mg Given 02/24/2022 9:47 PM CELLOPHANER 50 mg documented in this encounter Discontinued [...] Recently Administered Medications Times are shown in CELLOPHANER. Scheduled Medication Order 02/25/2022 02/26/2022 02/27/2022 lithium [...] - Comment: duplicate) 1023 (Given - Provider: hCanel Steele RN)1550 (Given - Provider: Chanel Steele [...] Padminiterrence Couch. 02/23/2022 02/24/2022 03/05/2022 3:05 AM CELLOPHANER documented as of this encounter Care Teams Gliding Pilot Instructor Relationship Specialty Start Date End Date Marlin Contreras MD PCP - General 04/07/17 10/09/23 documented as of this encounter
--- OUTSIDE RECORDS SUMMARY | 2024-03-25 19:36 | XMS_ITS | Encounter Summary ---
Author Organization [facility] Healthcare Address [address] [place] [address] Care Team Providers Care Pillar Worker Name Role Phone Marlin Contreras MD Primary Care Provider [phone] Bettie Cabezas MD Unavailable [phone] Reason for Visit * Reason Onset Date Comments Scheduling Appointments 05/19/2022 Encounter Details Date Type Department Care Team (Late st Contact Info) Description 05/19/2022 Telephone [facility] [address] [facility] [address] [place] [address] Bettie Cabezas MD [facility] [address] [place] [address] Scheduling Appointments Social History Tobacco [...] staff should administer the PHQ-9) 1 02/23/2022 [facility] - Occupational Stress [...] on file Legal Sex Female 12:29 PM COPY HOLDER Gender Identity Not on file Sexual Orientation Not on file documented as of this encounter Miscellaneous Notes * Telephone Encounter - Riana Guidry - 05/19/2022 2:49 PM CST Unable to reach. Left message of next visit schedule for 07/02 2:45. Riana HOLDER documented in this encounter Plan of Treatment Not on file documented as of this encounter Visit Diagnoses Not on filedocumented in this encounter Care Teams Pillar Worker Relationship Specialty Start Date End Date Marlin Contreras MD PCP - General 04/07/17 10/09/23 Bettie Cabezas MD [address] [place] [address] Resident Psychiatry 03/23/22 09/23/23 documented as of this encounter
--- OUTSIDE RECORDS SUMMARY | 2024-03-25 19:36 | XMS_ITS | Encounter Summary ---
Author Organization [facility] Healthcare Address [address] [place] [address] Care Team Providers Care Human Intelligence Name Role Phone Marlin Contreras MD Primary Care Provider [phone] Encounter Details Date Type Department Care Team (Late st Contact Info) Description 03/05/2022 12:30 PM SHAREBROKER Office Visit [facility] [address] [facility] [address] [place] [address] Bettie Cabezas MD [address] [place] [address] Bipolar affective disorder, remission status [...] staff should administer the PHQ-9) 1 [facility] Answer [...] on file Legal Sex Female 12:29 PM SHAREBROKER Gender Identity Not on file Sexual Orientation [...] the [facility] for an initial intake. [...] depression. This fall she initially presented to [facility] with manic symptoms at the end of December. She was given medication for agitation in the ED and when she was unable to get a bed was discharged. She then had an admission to [facility] lasting 15 days from 02/01-02/16 for manic episode with psychotic features andwas discharged on loaded on Aristada 882mg + Initio 675mg along with chlorpromazine 100mg TID, and trazodone 100mg QHS. She was again admitted [place] [facility] [place]/23-02/27 with ongoing eladio and was [...] History: Patient was born and raised in [place], parents when she was a child. School was somewhat challenging, no IEP or 504. Some college, didn't graduate. Lives with her mom or dad. No history of trauma. She has been arrested once and in assisted overnight when manic, no other legalhistory. She [...] disorder, remission status unspecified (HCC) (Primary) - [place] level; Future - ARIPiprazole lauroxil (ARISTADA) intramuscular [...] readmitted. Plan at discharge from last [facility] was to continue Risperdal 4mg daily and [...] records for this encounter Bettie Mesa MD Pollution Control Engineer, PGY-3 EBROKER EBROKER documented in this encounter Miscellaneous Notes * Addendum Note - Bettie Mesa MD - 03/05/2022 12:30 PM CSTAddended by: BETTIE MESA on: 03/05/2022 04:40 PM Modules accepted: Orders EBROKER documented in this encounter Plan of Treatment Scheduled Orders Name Type Priority Associated Diagnoses Orde r Schedule Hemoglobin A1c Lab Routine Routine health maintenance Expected: 03/05/2022, Expires: 03/05/2023 documented as of this encounter Procedures Procedure Name Priority Date/Time Associated Diagnosis Comments HEMOGLOBIN A1C Routine 03/06/2022 10:31 AM SHAREBROKER LITHIUM LEVEL Routine 03/06/2022 10:31 AM SHAREBROKER Bipolar affective disorder, remission status unspecified (HCC) documented in this encounter Results * Hemoglobin A1c (03/06/2022 10:31 AM SHAREBROKER) Hgb A1C 5.0 <5.7 % of total Hgb [facility] Comment: For the purpose of screening for the presence of diabetes: <5.7% ? Consistent with the absence of diabetes 5.7-6.4% ?Consistent with increased risk for diabetes ?(prediabetes) > or =6.5% ??Consistent with diabetes This assay result is consistent with a decreased risk of diabetes. Currently, no consensus exists regarding use of hemoglobin A1c for diagnosis of diabetes in children. According to [place] [employer] (ADA) guidelines, hemoglobin A1c <7.0% represents optimal control in non- diabetic patients. Different metrics may apply to specific patient populations. Standards of Medical Care in Diabetes(ADA). ?? 03/06/2022 10:3 1 AM SHAREBROKER 03/06/2022 10:32 AM SHAREBROKER Bettie Cabezas MD LAB BLOOD ORDERABLES Margie l Result [facility] [address] [place] [address] * (ABNORMAL) [place] level (03/06/2022 10:31 AM SHAREBROKER) LITHIUM 0.4(L) 0.6 - 1.2 mmol/L [facility] Blood 03/06/2022 10:3 1 AM SHAREBROKER 03/06/2022 10:32 AM SHAREBROKER Bettie Cabezas MD LAB BLOOD ORDERABLES Margie l Result [facility] [address] [place] [address] documented in this encounter Visit Diagnoses Diagnosis [...] 03/05/2022 documented in this encounter Care Teams Human Intelligence Relationship Specialty Start Date End Date Marlin Contreras MD PCP - General 04/07/17 10/09/23 documented as of this encounter
--- OUTSIDE RECORDS SUMMARY | 2024-03-25 19:36 | XMS_ITS | Encounter Summary ---
Author Organization [facility] Facility Care Team Providers Care Senior Marketing Engineer Name Role Phone Unavailable Primary Care Provider Unavailabl e Encounter Details Date Type Department Care Team (Late st Contact Info) Description 12/18/2014 5:04 PM CDT - 12/18/2014 11:59 PM CDT Hospital En[facility] [place] [address] [place] [address] Pain in joint, lower leg Social History Tobacco Use Types Packs/Day Years Used Date Smoking Tobacco: Never Assessed Comments Unknown Sex and Gender Information Value Date Recorded Sex Assigned at Not on file Legal Sex Female 12:29 PM SAS PROGRAMMER ANALYST Gender Identity Not on file Sexual Orientation [...] M.D. FINAL REPORT ACC# ??Date Time ??Exam [id number] Dec 18, 2014 17:16:00 [id number] Knee Complete min 4 views R EXAMINATION: [...] WILKINSON M.D. on Dec 19 2014 ??6:25A [id number] Procedure Note Provider, Vani, - 07/23/2016 SHAYLA WILKINSON M.D. FINAL REPORT ACC# Date Time Exam [id number] Dec 18, 2014 17:16:00 [id number] Knee Complete min 4 views R EXAMINATION: [...] WILKINSON M.D. on Dec 19 2014 6:25A [id number] Historical Provider IMJefe XR PROCEDURES Final R esult documented in this encounter Visit Diagnoses Diagnosis Pain in joint, lower leg documented in this encounter
== END 2024-03-18 16:36 | disposition home or self-care (01) ==
PROVIDERS: Emergency Provider Student in an Organized Health Care Education/Training Program; PCP Nurse Practitioner Family
DX: R10.30 Lower abdominal pain, unspecified (principal); M79.10 Myalgia, unspecified site; V43.52XA Car driver injured in collision with other type car in traffic accident, initial encounter
CPT/HCPCS: 36415; 70450; 71260; 72125; 72128; 72131; 74177; 80053; 81001; 81025; 84484; 85025; 85610; 85730; 87086; 93005; 96361; 96374; 96375; 99284; J1171; J2270; J2405; J7120; Q9967